=== PATIENT | male | born 1960 | race Caucasian/White ===

== ENCOUNTER 2016-11-13 06:05 | Day surgery (SDC) | payer OTHER ==
[2016-11-13] MEDS ORDERED: Lactated Ringers 1,000 ML IV SCH (06:30)
[2016-11-13] MEDS ORDERED: Ketamine HCl 50 MG/ML IV ONE (08:00)
[2016-11-13] MEDS ORDERED: DIPRIVAN 200 MG/20 ML IV ONE (08:00)
[2016-11-13 09:03] VITALS: PULSE 86; O2SAT 95
[2016-11-13 09:15] VITALS: BP 124/76
--- NOTE | 2016-11-13 09:36 | OP ---
SURGERY DATE/TIME: 11/13/2016 0755 PREOPERATIVE DIAGNOSIS: Abdominal pain. POSTOPERATIVE DIAGNOSIS: Normal colon. PROCEDURE: Colonoscopy. SURGEON: Dr. Canseco. ANESTHESIA: MAC. Medications given by anesthesia department. HISTORY: The patient is a 56 year-old white male complaining of abdominal pain. The patent was felt the need to have endoscopic evaluation. He was appraised of the risks of the procedure including the risk of perforation, phlebitis, untoward reaction to medication, bleeding, and missed lesions. The patient verbalized his understanding and desired to have the procedure performed. DESCRIPTION OF PROCEDURE: The patient was given the medications by the anesthesia department. The patient had continuous pulse oximetry, ECG monitoring, intermittent blood pressure monitoring, and tidal CO2 monitoring during the examination. He was placed in the left lateral decubitus position. A digital rectal examination was performed and revealed normal anal sphincter tone and no masses. The flexible Olympus pediatric colonoscope was used to intubate the rectum. A view of the colon was developed sequentially to the cecum including a short distance into the terminal ileum. Upon insertion and withdrawal, including a retroflex view in the rectum, no mucosal lesions were encountered. The scope was removed from the patient who tolerated the procedure well and was sent back to OP recovery in good condition. The prep was noted to be fair to good.
== END 2016-11-13 09:15 | disposition home or self-care (01) ==
LOC: SDC 06:05
PROVIDERS: ATTEND Family Medicine
PROC: 0DJD8ZZ Inspection of Lower Intestinal Tract, Via Natural or Artificial Opening Endoscopic (ICD-10-PCS; principal; 2016-11-13)
DX: R10.9 Unspecified abdominal pain (principal)
CPT/HCPCS: 00810; J2704

== ENCOUNTER 2017-08-07 12:00 | Inpatient (IN) | payer BC, OTHER ==
[2017-08-07] MEDS ORDERED: Phenergan 25 MG INJ IM ONE (12:21)
[2017-08-07] MEDS ORDERED: Sodium Chloride 0.9% 1000 ML 1,000 ML IV STA (12:21)
[2017-08-07] MEDS ORDERED: Sodium Chloride 0.9% 1000 ML 1,000 ML ONE (12:21)
[2017-08-07] MEDS ORDERED: Lactated Ringers 1,000 ML IV ONE ×4 (12:22→13:24)
[2017-08-07] MEDS ORDERED: Zosyn 3.375GM/100 Ml D5W 3.375 GM/100 ML IVPB IV STA (12:24)
[2017-08-07] MEDS ORDERED: FEVERALL 650 MG PR STA (12:25)
[2017-08-07] MEDS ORDERED: SUBLIMAZE 100 MCG/2 ML IV ONE (12:29)
[2017-08-07] MEDS ORDERED: FEVERALL 650 MG ONE (12:34)
[2017-08-07] MEDS ORDERED: Zosyn 3.375GM/100 Ml D5W 3.375 GM/100 ML IVPB IV ONE (12:34)
[2017-08-07] MEDS ORDERED: Phenergan 25 MG INJ ONE (12:34)
[2017-08-07 12:35] LABS: VBG BASE EXCESS -6.5 (-2.0-2.0); VBG CARBOXYHEMOGLOBIN 2.1 % T HGB (0.0-6.9); VBG HCO3- 19.1 meq/L (22-28); VBG HEMOGLOBIN 17.8; VBG O2 SATURATION 53.7 (95-100); VBG POTASSIUM 5.2 (3.5-5.1); VBG pH 7.31 (7.32-7.42)
--- NOTE | 2017-08-07 12:35 | ERPHSYRPT ---
- History of Present Illness Time Seen by Provider: 08/07/17 12:04 Source: patient, family () Patient Subjective Stated Complaint: pt states "I have not eaten since evening and I have been feeling horrible since, my sugar is really high and I vomited yesterday." Triage Nursing Assessment: Pt alert and oriented X 3, skin pwd. Pt ambulates with a slow shuffling gait. PT is tachypneic, able to speak in full clear sentences. Physician History: CC: vomiting Hx: 57 y/o patient of Dr Shayy Stovall. He has IDDM. He has vomiting, myalgias, feeling poorly, decreaed po intake for a couple of days. No diarrhea and in fact may have constipation. He has back pain, abd pain, myalgias. Some headache. No injury. He felt hot and was sweating. gave insulin today. He is not sure if he took insulin yest. Sugars have been high. Symptoms severe. No chest pain. No prior abdominal surgeries. Timing/Duration: day(s) (2) Severity: severe Allergies/Adverse Reactions: acetaminophen [From Vicodin] Adverse Reaction (Severe, Verified 10/23/15 14:11) Vomiting codeine Adverse Reaction (Severe, Verified 10/23/15 14:10) Vomiting hydrocodone bitartrate [From Vicodin] Adverse Reaction (Severe, Verified 14:11) Vomiting Home Medications: PANTOPRAZOLE 40 mg Tablet [Protonix 40MG Tablet] 40 mg PO DAILY 09/02/15 [ History] Fluticasone Propionate [Flonase NASAL] 16 gm NS DAILY 05/29/16 [History] Gabapentin 400 mg [Neurontin 400 MG] 800 mg PO HS 05/29/16 [History] Insulin Aspart [NovoLOG Insulin] 15 units SQ TIDWM 05/29/16 [History] Insulin Glargine,Hum.rec.anlog [Lantus Solostar] 50 unit SQ DAILY 05/29/16 [ History] Atorvastatin Calcium [Lipitor 20MG Tablet] 1 tab PO QAM 11/12/16 [History] Cyclobenzaprine HCl [Cyclobenzaprine 10 mg Tablet] 10 mg PO UD PRN 11/12/16 [ History] Testosterone Cypionate 0.7 mg IM UD 11/12/16 [History] Hx Tetanus, Diphtheria Vaccination/Date Given: Yes Hx Influenza Vaccination/Date Given: No Hx Pneumococcal Vaccination/Date Given: No Immunizations Up to Date: Yes - Review of Systems Constitutional: Fever, Chills, Fatigue, Malaise, Weakness Eyes: No Symptoms, Photophobia, No Vision Changes Ears, Nose, & Throat: No Symptoms, No Throat Pain Respiratory: No Cough Cardiac: No Chest Pain Abdominal/Gastrointestinal: Abdominal Pain, Nausea, Vomiting, Constipation, No Diarrhea Genitourinary Symptoms: No Dysuria Musculoskeletal: Back Pain Skin: No Rash Neurological: No Headache All Other Systems: Reviewed and Negative - Past Medical History Pertinent Past Medical History: Yes Neurological History: No Pertinent History ENT History: No Pertinent History Cardiac History: No Pertinent History Respiratory History: No Pertinent History Endocrine Medical History: Diabetes Type II Musculoskeletal History: No Pertinent History GI Medical History: No Pertinent History History: No Pertinent History Psycho-Social History: No Pertinent History Male Reproductive Disorders: No Pertinent History Other Medical History: FX L LEG AND FOOT subsiquent infection - Past Surgical History Past Surgical History: Yes Neuro Surgical History: No Pertinent History Cardiac: No Pertinent History Respiratory: No Pertinent History Gastrointestinal: Hernia Repair Genitourinary: No Pertinent History Musculoskeletal: Orthopedic Surgery Male Surgical History: No Pertinent History Other Surgical History: right femur fixed at age 15. left foot broke at age 20. left leg and foot surgery ,,I&D of left foot - Social History Smoking Status: Former smoker Exposure to second hand smoke: No Drug Use: none Patient Lives Alone: No (here with ) - Nursing Vital Signs Nursing Vital Signs: Initial Vital Signs Temperature 97.6 F 08/07/17 12:10 Pulse Rate 120 H 08/07/17 12:10 Respiratory Rate 22 08/07/17 12:10 Blood Pressure 127/89 08/07/17 12:10 O2 Sat by Pulse Oximetry 94 L 08/07/17 12:10 Pain Scale Pain Intensity 2 - Physical Exam General Appearance: alert Eye Exam: PERRL/EOMI, photophobia, No scleral icterus Ears, Nose, Throat Exam: dry mucous membranes Neck Exam: normal inspection, non-tender, supple, No meningismus Respiratory Exam: normal breath sounds, lungs clear Cardiovascular Exam: regular rate/rhythm, tachycardia, No murmur Gastrointestinal/Abdomen Exam: soft, tenderness (diffuse, guarding present, some distention) Male Genitalia Exam: normal genitalia, No hernia, No testicular tenderness Back Exam: normal inspection, other (diffuse discomfort, no erythema or swelling ), No rash Extremity Exam: normal inspection, normal range of motion, No pedal edema Neurologic Exam: alert, oriented x 3, cooperative, slag skimmer II-XII nml as tested, sensation nml, No motor deficits Skin Exam: warm, dry, No rash SpO2 Interpretation: normal SpO2: 94 Oxygen Delivery: Room Air - Course Nursing assessment & vital signs reviewed: Yes EKG Interpreted by Me: RATE (112), Sinus Tach, NORMAL AXIS, NORMAL INTERVALS ( [id number]), NORMAL QRS, Non-specific ST Changes (stable compared to prior tracing) - Radiology Exams cxr X-ray Interpretation: Reviewed by me (low lung volumes, rml infiltrate) - CT Exams abd/pelvis CT Interpretation: Tele-radiologist Report (no acute abdominal findings) Ordered Tests: Active Orders 24 hr Category Date Time Status Track Laying Machine Operator STAT Care 08/07/17 12:21 Active Clean Catch Urine Specimen STAT Care 08/07/17 12:21 Active EKG-ER Only STAT Care 08/07/17 12:21 Active IV Insertion STAT Care 08/07/17 12:21 Active IV Insertion-2nd Peripheral STAT Care 08/07/17 12:21 Active Pulse Oximetry (ED) STAT Care 08/07/17 12:21 Active Rectal Temperature STAT Care 08/07/17 12:25 Active Saline Lock STAT Care 08/07/17 12:21 Active ABDOMEN AND PELVIS W/0 CONTRAS [CT] Stat Exams 08/07/17 12:23 Taken CHEST 1 VIEW (PORTABLE) Stat Exams 08/07/17 12:21 Taken BLOOD CULTURE Stat Lab 08/07/17 12:25 Received CBC W DIFF Stat Lab 08/07/17 12:15 Completed CK-Creatinine Phosphokinase Stat Lab 08/07/17 12:15 Completed CMP Stat Lab 08/07/17 12:15 Completed CULTURE,URINE Stat Lab 08/07/17 13:50 Received Glucose,Critical Care Urgent Lab 08/07/17 12:33 Completed Glucose,Critical Care Urgent Lab 08/07/17 14:35 Completed LIPASE Stat Lab 08/07/17 12:15 Completed Lactic Acid Stat Lab 08/07/17 12:21 Completed Lactic Acid Stat Lab 08/07/17 14:35 Results MAGNESIUM Stat Lab 08/07/17 12:15 Completed Manual Differential NC Stat Lab 08/07/17 12:15 Completed PROTIME WITH INR Stat Lab 08/07/17 12:15 Completed PTT Stat Lab 08/07/17 12:15 Completed TROPONIN Q3H Lab 08/07/17 12:30 Completed TROPONIN Q3H Lab 08/07/17 17:30 Ordered TROPONIN Q3H Lab 08/07/17 20:30 Ordered TROPONIN Q3H Lab 08/07/17 23:30 Ordered TROPONIN Q3H Lab 08/08/17 02:30 Ordered UA Stat Lab 08/07/17 13:50 Completed VENOUS BLOOD GAS Urgent Lab 08/07/17 12:21 Completed VENOUS BLOOD GAS Urgent Lab 08/07/17 14:25 Completed Medication Summary Generic Name Dose Route Start Last Admin Trade Name Frecarol PRN Reason Stop Dose Admin Insulin Human Regular 100 101 mls @ 8.08 mls/hr 08/07/17 13:30 08/07/17 13:40 units/ Sodium Chloride IV 09/06/17 13:29 8 units/hr .[id number] AURA 8.08 mls/hr 8 UNITS/HR Administration Lactated Ringer's 1,000 mls @ 100 mls/hr 08/07/17 14:30 08/07/17 14:29 Lactated Ringers IV 09/06/17 14:29 100 mls/hr .Q10H AURA Administration Discontinued Medications Generic Name Dose Route Start Last Admin Trade Name Vickie PRN Reason Stop Dose Admin Acetaminophen 975 mg 08/07/17 12:25 08/07/17 12:36 Feverall 650 Mg AL 08/07/17 12:26 975 mg STAT STA Administration Acetaminophen Confirm 08/07/17 12:34 Feverall 650 Mg Administered 08/07/17 12:35 Dose 1,300 mg .ROUTE .STK-MED ONE Fentanyl Citrate 50 mcg 08/07/17 12:29 08/07/17 12:40 Sublimaze 100 Mcg/2 Ml IV 08/07/17 12:30 50 mcg STAT ONE Administration Fentanyl Citrate Confirm 08/07/17 12:39 Sublimaze 100 Mcg/2 Ml Administered 08/07/17 12:40 Dose 100 mcg .ROUTE .STK-MED ONE Lactated Ringer's 1,000 mls @ 999 mls/hr 08/07/17 12:22 08/07/17 12:30 Lactated Ringers IV 08/07/17 13:22 999 mls/hr .Q1H1M ONE Administration Sodium Chloride 1,000 mls @ 999 mls/hr 08/07/17 12:21 08/07/17 12:30 Sodium Chloride 0.9% 1000 Ml IV 08/07/17 13:21 999 mls/hr .Q1H1M STA Administration Piperacillin Sod/Tazobactam Sod 3.375 gm in 100 mls @ 200 mls/hr 08/07/17 12: 24 08/07/17 12:37 Zosyn 3.375gm/100 Ml D5w IV 08/07/17 12:53 200 mls/hr STAT STA Administration Sodium Chloride Confirm 08/07/17 12:21 Sodium Chloride 0.9% 1000 Ml Administered 08/07/17 12:22 Dose 1,000 mls @ ud .ROUTE .STK-MED ONE Lactated Ringer's Confirm 08/07/17 12:22 Lactated Ringers Administered 08/07/17 12:23 Dose 1,000 mls @ ud IV .STK-MED ONE Lactated Ringer's 1,000 mls @ 999 mls/hr 08/07/17 12:34 08/07/17 13:24 Lactated Ringers IV 08/07/17 13:34 999 mls/hr .Q1H1M ONE Administration Piperacillin Sod/Tazobactam Sod Confirm 08/07/17 12:34 Zosyn 3.375gm/100 Ml D5w Administered 08/07/17 12:35 Dose 3.375 gm in 100 mls @ ud IV .STK-MED ONE Lactated Ringer's Confirm 08/07/17 13:24 Lactated Ringers Administered 08/07/17 13:25 Dose 1,000 mls @ ud IV .STK-MED ONE Promethazine HCl 25 mg 08/07/17 12:21 08/07/17 12:37 Phenergan 25 Mg Inj IM 08/07/17 12:22 25 mg STAT ONE Administration Promethazine HCl Confirm 08/07/17 12:34 Phenergan 25 Mg Inj Administered 08/07/17 12:35 Dose 25 mg .ROUTE .STK-MED ONE Lab/Rad Data: Laboratory Result Diagrams 08/07/17 12:15 08/07/17 12:15 Laboratory Results 08/07/17 08/07/17 08/07/17 Range/Units 14:35 14:35 14:25 WBC (4.0-10.5) K/mm3 RBC (4.1-5.6) M/mm3 Hgb (12.5-18.0) gm/dl Hct (42-50) % MCV (78-100) fl MCH (26-32) pg MCHC (32-36) g/dl RDW (11.5-14.0) % Plt Count (150-450) K/mm3 MPV (6-9.5) fl Lymphocytes % (24.0-44.0) % Monocytes % (0.0-12.0) % Eosinophils % (0.00-5.0) % Segmented Neutrophils (36.-66.) % Band Neutrophils (0.0-2.0) % Lymphocytes (Manual) (24-44) % Monocytes (Manual) (0.0-12.0) % Differential Comment Platelet Estimate (NORMAL) INR (0.8-3.0) APTT (24.1-36.1) SECONDS VBG pH 7.40 (7.32-7.42) VBG pCO2 at Pat Temp 29 L (42-55) mm/Hg VBG pO2 at Pat Temp 70 H (25-40) mm/Hg VBG HCO3 18.0 L (22-28) meq/L VBG O2 Sat (Adrian) 96.4 (95-100) VBG Base Excess -5.4 L (-2.0-2.0) VBG Hemoglobin 15.0 VBG Carboxyhemoglobin 3.1 (0.0-6.9) % T HGB POC Potassium 4.1 (3.5-5.1) Sodium (136-145) mEq/L Potassium (3.5-5.1) mEq/L Chloride (98-107) mEq/L Carbon Dioxide (21-32) mEq/L Anion Gap (5-15) MEQ/L BUN (9-20) mg/dL Creatinine (0.55-1.30) mg/dl Estimated GFR ML/MIN Glucose 357 H (70-110) MG/DL Lactic Acid 4.0 H (0.4-2.0) Calcium (8.5-10.1) mg/dL Magnesium (1.8-2.4) mg/dL Total Bilirubin (0.2-1.0) mg/dL AST (15-37) U/L ALT (12-78) U/L Alkaline Phosphatase (46-116) U/L Creatine Kinase (39-308) U/L Troponin I (0.000-0.056) ng/ml Serum Total Protein (6.4-8.2) gm/dL Albumin (3.4-5.0) g/dL Lipase (73-393) U/L Ur Collection Type Urine Color (YELLOW) Urine Appearance (CLEAR) Urine pH (5-6) Ur Specific [employer] (1.005-1.025) Urine Protein (Negative) Urine Ketones (NEGATIVE) Urine Blood (0-5) Rodo/ul Urine Nitrite (NEGATIVE) Urine Bilirubin (NEGATIVE) Urine Urobilinogen (0-1) mg/dL Ur Leukocyte Esterase (NEGATIVE) Urine Glucose (NEGATIVE) mg/dL Influenza Type A Ag (NEGATIVE) Influenza Type B Ag (NEGATIVE) RSV (PCR) (Negative) Specimen Received 08/07/17 08/07/17 08/07/17 Range/Units 13:50 12:35 12:33 WBC (4.0-10.5) K/mm3 RBC (4.1-5.6) M/mm3 Hgb (12.5-18.0) gm/dl Hct (42-50) % MCV (78-100) fl MCH (26-32) pg MCHC (32-36) g/dl RDW (11.5-14.0) % Plt Count (150-450) K/mm3 MPV (6-9.5) fl Lymphocytes % (24.0-44.0) % Monocytes % (0.0-12.0) % Eosinophils % (0.00-5.0) % Segmented Neutrophils (36.-66.) % Band Neutrophils (0.0-2.0) % Lymphocytes (Manual) (24-44) % Monocytes (Manual) (0.0-12.0) % Differential Comment Platelet Estimate (NORMAL) INR (0.8-3.0) APTT (24.1-36.1) SECONDS VBG pH (7.32-7.42) VBG pCO2 at Pat Temp (42-55) mm/Hg VBG pO2 at Pat Temp (25-40) mm/Hg VBG HCO3 (22-28) meq/L VBG O2 Sat (Adrian) (95-100) VBG Base Excess (-2.0-2.0) VBG Hemoglobin VBG Carboxyhemoglobin (0.0-6.9) % T HGB POC Potassium (3.5-5.1) Sodium (136-145) mEq/L Potassium (3.5-5.1) mEq/L Chloride (98-107) mEq/L Carbon Dioxide (21-32) mEq/L Anion Gap (5-15) MEQ/L BUN (9-20) mg/dL Creatinine (0.55-1.30) mg/dl Estimated GFR ML/MIN Glucose 576 H* (70-110) MG/DL Lactic Acid (0.4-2.0) Calcium (8.5-10.1) mg/dL Magnesium (1.8-2.4) mg/dL Total Bilirubin (0.2-1.0) mg/dL AST (15-37) U/L ALT (12-78) U/L Alkaline Phosphatase (46-116) U/L Creatine Kinase (39-308) U/L Troponin I (0.000-0.056) ng/ml Serum Total Protein (6.4-8.2) gm/dL Albumin (3.4-5.0) g/dL Lipase (73-393) U/L Ur Collection Type CLEAN CATCH Urine Color YELLOW (YELLOW) Urine Appearance CLEAR (CLEAR) Urine pH 5.0 (5-6) Ur Specific [employer] 1.015 (1.005-1.025) Urine Protein NEGATIVE (Negative) Urine Ketones SMALL (NEGATIVE) Urine Blood NEGATIVE (0-5) Rodo/ul Urine Nitrite NEGATIVE (NEGATIVE) Urine Bilirubin NEGATIVE (NEGATIVE) Urine Urobilinogen NORMAL (0-1) mg/dL Ur Leukocyte Esterase NEGATIVE (NEGATIVE) Urine Glucose 500 (NEGATIVE) mg/dL Influenza Type A Ag NEGATIVE (NEGATIVE) Influenza Type B Ag NEGATIVE (NEGATIVE) RSV (PCR) NEGATIVE (Negative) Specimen Received 08-07 8647 1008/07/17 08/07/17 Range/Units 12:30 12:21 12:21 WBC (4.0-10.5) K/mm3 RBC (4.1-5.6) M/mm3 Hgb (12.5-18.0) gm/dl Hct (42-50) % MCV (78-100) fl MCH (26-32) pg MCHC (32-36) g/dl RDW (11.5-14.0) % Plt Count (150-450) K/mm3 MPV (6-9.5) fl Lymphocytes % (24.0-44.0) % Monocytes % (0.0-12.0) % Eosinophils % (0.00-5.0) % Segmented Neutrophils (36.-66.) % Band Neutrophils (0.0-2.0) % Lymphocytes (Manual) (24-44) % Monocytes (Manual) (0.0-12.0) % Differential Comment Platelet Estimate (NORMAL) INR (0.8-3.0) APTT (24.1-36.1) SECONDS VBG pH 7.31 L (7.32-7.42) VBG pCO2 at Pat Temp 38 L (42-55) mm/Hg VBG pO2 at Pat Temp 24 L (25-40) mm/Hg VBG HCO3 19.1 L (22-28) meq/L VBG O2 Sat (Adrian) 53.7 L (95-100) VBG Base Excess -6.5 L (-2.0-2.0) VBG Hemoglobin 17.8 VBG Carboxyhemoglobin 2.1 (0.0-6.9) % T HGB POC Potassium 5.2 H (3.5-5.1) Sodium (136-145) mEq/L Potassium (3.5-5.1) mEq/L Chloride (98-107) mEq/L Carbon Dioxide (21-32) mEq/L Anion Gap (5-15) MEQ/L BUN (9-20) mg/dL Creatinine (0.55-1.30) mg/dl Estimated GFR ML/MIN Glucose (70-110) MG/DL Lactic Acid 5.3 H (0.4-2.0) Calcium (8.5-10.1) mg/dL Magnesium (1.8-2.4) mg/dL Total Bilirubin (0.2-1.0) mg/dL AST (15-37) U/L ALT (12-78) U/L Alkaline Phosphatase (46-116) U/L Creatine Kinase (39-308) U/L Troponin I < 0.017 (0.000-0.056) ng/ml Serum Total Protein (6.4-8.2) gm/dL Albumin (3.4-5.0) g/dL Lipase (73-393) U/L Ur Collection Type Urine Color (YELLOW) Urine Appearance (CLEAR) Urine pH (5-6) Ur Specific [employer] (1.005-1.025) Urine Protein (Negative) Urine Ketones (NEGATIVE) Urine Blood (0-5) Rodo/ul Urine Nitrite (NEGATIVE) Urine Bilirubin (NEGATIVE) Urine Urobilinogen (0-1) mg/dL Ur Leukocyte Esterase (NEGATIVE) Urine Glucose (NEGATIVE) mg/dL Influenza Type A Ag (NEGATIVE) Influenza Type B Ag (NEGATIVE) RSV (PCR) (Negative) Specimen Received 08/07/17 08/07/17 08/07/17 Range/Units 12:15 12:15 12:15 WBC (4.0-10.5) K/mm3 RBC (4.1-5.6) M/mm3 Hgb (12.5-18.0) gm/dl Hct (42-50) % MCV (78-100) fl MCH (26-32) pg MCHC (32-36) g/dl RDW (11.5-14.0) % Plt Count (150-450) K/mm3 MPV (6-9.5) fl Lymphocytes % (24.0-44.0) % Monocytes % (0.0-12.0) % Eosinophils % (0.00-5.0) % Segmented Neutrophils (36.-66.) % Band Neutrophils (0.0-2.0) % Lymphocytes (Manual) (24-44) % Monocytes (Manual) (0.0-12.0) % Differential Comment Platelet Estimate (NORMAL) INR 0.94 (0.8-3.0) APTT 24.5 (24.1-36.1) SECONDS VBG pH (7.32-7.42) VBG pCO2 at Pat Temp (42-55) mm/Hg VBG pO2 at Pat Temp (25-40) mm/Hg VBG HCO3 (22-28) meq/L VBG O2 Sat (Adrian) (95-100) VBG Base Excess (-2.0-2.0) VBG Hemoglobin VBG Carboxyhemoglobin (0.0-6.9) % T HGB POC Potassium (3.5-5.1) Sodium (136-145) mEq/L Potassium (3.5-5.1) mEq/L Chloride (98-107) mEq/L Carbon Dioxide (21-32) mEq/L Anion Gap (5-15) MEQ/L BUN (9-20) mg/dL Creatinine (0.55-1.30) mg/dl Estimated GFR ML/MIN Glucose (70-110) MG/DL Lactic Acid (0.4-2.0) Calcium (8.5-10.1) mg/dL Magnesium 2.9 H (1.8-2.4) mg/dL Total Bilirubin (0.2-1.0) mg/dL AST (15-37) U/L ALT (12-78) U/L Alkaline Phosphatase (46-116) U/L Creatine Kinase 222 (39-308) U/L Troponin I (0.000-0.056) ng/ml Serum Total Protein (6.4-8.2) gm/dL Albumin (3.4-5.0) g/dL Lipase 62 L (73-393) U/L Ur Collection Type Urine Color (YELLOW) Urine Appearance (CLEAR) Urine pH (5-6) Ur Specific [employer] (1.005-1.025) Urine Protein (Negative) Urine Ketones (NEGATIVE) Urine Blood (0-5) Rodo/ul Urine Nitrite (NEGATIVE) Urine Bilirubin (NEGATIVE) Urine Urobilinogen (0-1) mg/dL Ur Leukocyte Esterase (NEGATIVE) Urine Glucose (NEGATIVE) mg/dL Influenza Type A Ag (NEGATIVE) Influenza Type B Ag (NEGATIVE) RSV (PCR) (Negative) Specimen Received 08/07/17 08/07/17 Range/Units 12:15 12:15 WBC 22.7 H (4.0-10.5) K/mm3 RBC 6.19 H* (4.1-5.6) M/mm3 Hgb 18.2 H (12.5-18.0) gm/dl Hct 53.8 H (42-50) % MCV 86.9 (78-100) fl MCH 29.4 (26-32) pg MCHC 33.8 (32-36) g/dl RDW 15.7 H (11.5-14.0) % Plt Count 400 (150-450) K/mm3 MPV 11.6 H (6-9.5) fl Lymphocytes % 5.9 L (24.0-44.0) % Monocytes % 10.1 (0.0-12.0) % Eosinophils % 0.0 (0.00-5.0) % Segmented Neutrophils 88 H (36.-66.) % Band Neutrophils 2 (0.0-2.0) % Lymphocytes (Manual) 7 L (24-44) % Monocytes (Manual) 3 (0.0-12.0) % Differential Comment NORMAL Platelet Estimate NORMAL (NORMAL) INR (0.8-3.0) APTT (24.1-36.1) SECONDS VBG pH (7.32-7.42) VBG pCO2 at Pat Temp (42-55) mm/Hg VBG pO2 at Pat Temp (25-40) mm/Hg VBG HCO3 (22-28) meq/L VBG O2 Sat (Adrian) (95-100) VBG Base Excess (-2.0-2.0) VBG Hemoglobin VBG Carboxyhemoglobin (0.0-6.9) % T HGB POC Potassium (3.5-5.1) Sodium 136 (136-145) mEq/L Potassium 4.9 (3.5-5.1) mEq/L Chloride 97 L (98-107) mEq/L Carbon Dioxide 19.5 L (21-32) mEq/L Anion Gap 24.2 H (5-15) MEQ/L BUN 45 H (9-20) mg/dL Creatinine 3.26 H (0.55-1.30) mg/dl Estimated GFR 21 ML/MIN Glucose 520 H* (70-110) MG/DL Lactic Acid (0.4-2.0) Calcium 10.7 H (8.5-10.1) mg/dL Magnesium (1.8-2.4) mg/dL Total Bilirubin 1.50 H (0.2-1.0) mg/dL AST 13 L (15-37) U/L ALT 81 H (12-78) U/L Alkaline Phosphatase 134 H (46-116) U/L Creatine Kinase (39-308) U/L Troponin I (0.000-0.056) ng/ml Serum Total Protein 9.0 H (6.4-8.2) gm/dL Albumin 5.2 H (3.4-5.0) g/dL Lipase (73-393) U/L Ur Collection Type Urine Color (YELLOW) Urine Appearance (CLEAR) Urine pH (5-6) Ur Specific [employer] (1.005-1.025) Urine Protein (Negative) Urine Ketones (NEGATIVE) Urine Blood (0-5) Rodo/ul Urine Nitrite (NEGATIVE) Urine Bilirubin (NEGATIVE) Urine Urobilinogen (0-1) mg/dL Ur Leukocyte Esterase (NEGATIVE) Urine Glucose (NEGATIVE) mg/dL Influenza Type A Ag (NEGATIVE) Influenza Type B Ag (NEGATIVE) RSV (PCR) (Negative) Specimen Received - Progress Progress Note: 08/07/17 12:35 He likely has some degree of DKA with IDDM out of control. He has abdominal tenderness and vomiting so will get CT to evaluate for infection or bowel obstruction. LActic 5.3. 30ml/kg crystalloid infusion ordered. Cultures sent. Zosyn started. 08/07/17 14:29 Pt improving. IVF bolus in. Insulin gtt started. Await troponin. EKG has subtle changes stable compared to prior tracing. 08/07/17 15:[address] Shayy Stovall and will admit to ICU for early DKA, severe dehydration, septic shock. Source of infection uncertain but worrisome for abdominal. Sozysn started. Counseled pt/family regarding: lab results, diagnosis, need for follow-up, rad results - Departure Time of Disposition: 15:08 Departure Disposition: In-patient Admission (ICU) Clinical Impression: DKA (diabetic ketoacidoses), Septic shock, Dehydration, Acute kidney injury Condition: Serious Critical Care Time: Yes Critical Care Time(excluding separately billable procedures): 30-74 minutes
[2017-08-07 12:37] LABS: Lactic Acid 5.3 (0.4-2.0)
[2017-08-07] MEDS ORDERED: SUBLIMAZE 100 MCG/2 ML ONE (12:39)
[2017-08-07 12:53] LABS: Lymphocytes % 5.9 % (24.0-44.0); Mean Cell Volume 86.9 fl (78-100); Mean Corpuscular Hemoglobin 29.4 pg (26-32); Mean Platelet Volume 11.6 fl (6-9.5); Monocytes % 10.1 % (0.0-12.0); Platelet Count 400 K/mm3 (150-450); Red Blood Count 6.19 M/mm3 (4.1-5.6); Red Cell Distribution Width 15.7 % (11.5-14.0); White Blood Count 22.7 K/mm3 (4.0-10.5)
[2017-08-07 12:54] LABS: INR 0.94 (0.8-3.0); PROTIME 10.4 SECONDS (8.83-12.87)
[2017-08-07 12:57] LABS: PTT 24.5 SECONDS (24.1-36.1)
[2017-08-07 13:05] LABS: MAGNESIUM 2.9 mg/dL (1.8-2.4)
[2017-08-07 13:06] LABS: ALBUMIN 5.2 g/dL (3.4-5.0); ANION GAP 24.2 MEQ/L (5-15); BILIRUBIN,TOTAL 1.5 mg/dL (0.2-1.0); Carbon Dioxide 19.5 mEq/L (21-32); Potassium 4.9 mEq/L (3.5-5.1)
[2017-08-07] MEDS ORDERED: NOVOLIN R INSULIN (FOR DRIPS)** 100 UNITS in Sodium Chloride 0.9% 100 ML IVPB 100 ML IV SCH (13:30)
[2017-08-07 13:41] LABS: BAND 2 % (0.0-2.0); Platelet Estimate NORMAL (NORMAL); Total Cells Counted 100
[2017-08-07 13:55] LABS: Bilirubin NEGATIVE (NEGATIVE); Blood NEGATIVE Ery/ul (0-5); COMPLETE URINE MICROSCOPIC? NO; Collection Type CLEAN CATCH; Glucose 500 mg/dL (NEGATIVE); Leukocyte Esterase NEGATIVE (NEGATIVE)
[2017-08-07] MEDS ORDERED: Lactated Ringers 1,000 ML IV SCH ×2 (14:30→16:22)
[2017-08-07 14:48] LABS: VBG BASE EXCESS -5.4 (-2.0-2.0); VBG CARBOXYHEMOGLOBIN 3.1 % T HGB (0.0-6.9); VBG O2 SATURATION 96.4 (95-100); VBG POTASSIUM 4.1 (3.5-5.1); VBG pH 7.4 (7.32-7.42)
[2017-08-07] MEDS ORDERED: TYLENOL 325 MG PO PRN (16:22)
[2017-08-07] MEDS ORDERED: TYLENOL 325 MG ONE (16:38)
[2017-08-07 17:29] LABS: Lactic Acid 2.1 (0.4-2.0)
[2017-08-07 17:35] LABS: Mean Cell Volume 86.7 fl (78-100); Mean Corpuscular Hemoglobin 29.5 pg (26-32); Mean Platelet Volume 10.6 fl (6-9.5); Platelet Count 301 K/mm3 (150-450); Red Blood Count 5.28 M/mm3 (4.1-5.6); Red Cell Distribution Width 14.8 % (11.5-14.0); White Blood Count 17.9 K/mm3 (4.0-10.5)
[2017-08-07 17:57] LABS: ALBUMIN 4.1 g/dL (3.4-5.0); ANION GAP 17.3 MEQ/L (5-15); BILIRUBIN,TOTAL 1.2 mg/dL (0.2-1.0); Carbon Dioxide 22.1 mEq/L (21-32); Total Protein 7.2 gm/dL (6.4-8.2)
[2017-08-07 18:07] LABS: ATYPICAL LYMPHS 1 %; BAND 4 % (0.0-2.0); Platelet Estimate NORMAL (NORMAL); Total Cells Counted 100
[2017-08-07] MEDS: D5W/0.45NS W/ 20mEq KCl 1000 ML 1,000 ML IV SCH (18:10)
[2017-08-07] MEDS: Zosyn 3.375GM/100 Ml D5W 3.375 GM/100 ML IVPB IV SCH ×2 (18:12→23:59)
--- NOTE | 2017-08-07 18:43 | PCM.HP ---
History of Present Illness - Chief Complaint Chief Complaint: Sepsis; DKA; Acute Kidney Injury Date: 08/07/17 History of Present Illness: is a 57 year old male. with insulin dependent diabetes who 48 hours ago developed nausea and vomiting. He has not had any diarrhea. He reports nonbloody nonbilious vomiting. No sick contacts no known exposures no travel history. He states he has vomitted nonstop countless times and unable to even take sips in 48 hours without vomiting. He states 1 day prior to this he noticed his eyes were getting more irritated with thick discharge that has persisted for the last 3 days as well. After all the vomiting he started having more pain in the bilateral lower quadrants worse on the right and into the back really only hurting with the vomiting he states. Currently he states the pain is better but hurts still when he moves. he is very thirsty. He states he was taking his insulin but his sugars were still running very high. No bm in 2 days. - Review of Systems Constitutional: Fever, Chills, Fatigue Eyes: Discharge, Eye Redness, Itchy, Tearing, Vision Changes, No Double Vision Ears, Nose, & Throat: No Symptoms, No Ear Pain, No Nose Discharge, No Mouth Pain , No Mouth Swelling, No Throat Pain, No Painful Swallowing Respiratory: No Cough, No Orthopnea, No Short Of Breath, No Wheezing Cardiac: No Chest Pain, No Edema, No Syncope Abdominal/Gastrointestinal: Abdominal Pain, Nausea, Vomiting, Appetite Changes, No Diarrhea, No Hematemesis, No Hematochezia, No Melena, No Dysphagia Genitourinary Symptoms: No Dysuria, No Frequency, No Urgency Musculoskeletal: Arthralgias, Back Pain, No Neck Pain, No Injury, No Joint Redness, No Joint Swelling Skin: No Cellulitis, No Rash Neurological: Dizziness, No Focal Weakness, No Headache, No Paralysis, No Parasthesia, No Seizure, No Sensory Changes Psychological: No Symptoms, No Alcohol Abuse, No Drug Abuse Endocrine: No Symptoms Hematologic/Lymphatic: No Symptoms Immunological/Allergic: No Symptoms Medications & Allergies Home Medications: Home Medication List PANTOPRAZOLE 40 mg Tablet [Protonix 40MG Tablet] 40 mg PO DAILY 09/02/15 [ History Confirmed 08/07/17] Metoclopramide HCl 10 mg [Reglan 10 MG] 10 mg PO ACHS #120 tablet [Rx Confirmed 08/07/17] Gabapentin 400 mg [Neurontin 400 MG] 400 mg PO TID #150 capsule 10/25/15 [ Rx Confirmed 08/07/17] Fluticasone Propionate [Flonase NASAL] 2 spray NS DAILY 05/29/16 [History Confirmed 08/07/17] Gabapentin 400 mg [Neurontin 400 MG] 800 mg PO HS 05/29/16 [History Confirmed 08/07/17] Insulin Aspart [NovoLOG Insulin] 15 units SQ TIDWM 05/29/16 [History Confirmed 08/07/17] Insulin Glargine,Hum.rec.anlog [Lantus Solostar] 50 unit SQ QAM 05/29/16 [ History Confirmed 08/07/17] Atorvastatin Calcium [Lipitor 20MG Tablet] 1 tab PO QAM 11/12/16 [History Confirmed 08/07/17] Cyclobenzaprine HCl [Cyclobenzaprine 10 mg Tablet] 10 mg PO UD PRN 11/12/16 [ History Confirmed 08/07/17] Testosterone Cypionate 0.7 mg IM UD 11/12/16 [History Confirmed 08/07/17] Ibuprofen 200 mg [Motrin 200 mg] 600 mg PO Q6HPRN PRN 08/07/17 [History Confirmed 08/07/17] Allergies/Adverse Reactions: Allergies Allergy/AdvReac Type Severity Reaction Status Date / Time acetaminophen [From Vicodin] AdvReac Severe Vomiting Verified 10/23/15 14:11 codeine AdvReac Severe Vomiting Verified 10/23/15 14:10 hydrocodone bitartrate AdvReac Severe Vomiting Verified 10/23/15 14:11 [From Vicodin] - Past Medical History Past Medical History: Yes Neurological History: No Pertinent History ENT History: No Pertinent History Cardiac History: No Pertinent History Respiratory History: Pneumonia Endocrine Medical History: Diabetes Type II Musculoskelatal History: No Pertinent History GI Medical History: No Pertinent History History: No Pertinent History Pyscho-Social History: No Pertinent History Male Reproductive Disorders: No Pertinent History Comment: FX L LEG AND FOOT subsequent infection - Past Surgical History Past Surgical History: Yes Neuro Surgical History: No Pertinent History Cardiac History: No Pertinent History Respiratory Surgery: No Pertinent History GI Surgical History: Hernia Repair Genitourinary Surgical Hx: No Pertinent History Musculskeletal Surgical Hx: Orthopedic Surgery Male Surgical History: No Pertinent History Other Surgical History: right femur fixed at age 15. left foot broke at age 20. left leg and foot surgery ,,I&D of left foot - Social History Smoking Status: Never smoker Exposure to second hand smoke: No Alcohol: Rarely Drug Use: none - Physical Exam Vital Signs: Vital Signs - 24 hr Temp Pulse Resp BP Pulse Ox 08/07/17 18:00 99.1 F 110 H 15 123/89 94 L 08/07/17 17:09 99.0 F 105 H 16 141/88 94 L 08/07/17 16:41 93 L 08/07/17 15:40 99.4 F 110 H 20 138/72 96 08/07/17 15:09 94 L 08/07/17 14:25 99.7 F 112 H 20 131/79 94 L 08/07/17 13:50 113 H 22 152/69 97 08/07/17 13:40 99.5 F 115 H 24 152/69 96 08/07/17 12:52 98 08/07/17 12:25 99.5 F 08/07/17 12:10 97.6 F 120 H 22 127/89 94 L General Appearance: mild distress, alert Neurologic Exam: alert, oriented x 3, cooperative, normal mood/affect, nml cerebellar function, sensation nml, No motor deficits Eye Exam: PERRL/EOMI, other (conjunctiva injected bilateral with yellow discharge) Ears, Nose, Throat Exam: normal ENT inspection, TMs normal, pharynx normal, moist mucous membranes Neck Exam: normal inspection, non-tender, supple, full range of motion Respiratory Exam: normal breath sounds, lungs clear, No respiratory distress Cardiovascular Exam: regular rate/rhythm, normal heart sounds, normal peripheral pulses Gastrointestinal/Abdomen Exam: soft, normal bowel sounds, tenderness (very tender more in the right flank / lower quadrant area psoas sign and obturator sign absent some voluntary guarding on the right no rebound), No mass, No ecchymosis, No pulsatile mass, No rebound Back Exam: normal inspection, normal range of motion, No CVA tenderness, No vertebral tenderness Extremity Exam: normal inspection, normal range of motion, pelvis stable Skin Exam: normal color, warm, dry, No rash Lymphatic Exam: No adenopathy Results - Labs Lab/Micro Results: Accuchecks Accucheck Value: 102 Accucheck Value: 146 Lab Results-Last 24 Hours 08/07/17 08/07/17 08/07/17 Range/Units 16:41 17:28 17:28 WBC 17.9 H (4.0-10.5) K/mm3 RBC 5.28 (4.1-5.6) M/mm3 Hgb 15.6 (12.5-18.0) gm/dl Hct 45.8 (42-50) % MCV 86.7 (78-100) fl MCH 29.5 (26-32) pg MCHC 34.1 (32-36) g/dl RDW 14.8 H (11.5-14.0) % Plt Count 301 (150-450) K/mm3 MPV 10.6 H (6-9.5) fl Segmented Neutrophils 81 H (36.-66.) % Band Neutrophils 4 H (0.0-2.0) % Lymphocytes (Manual) 7 L (24-44) % Monocytes (Manual) 7 (0.0-12.0) % Differential Comment NORMAL Atypical Lymphocytes 1 % Platelet Estimate NORMAL (NORMAL) Sodium (136-145) mEq/L Potassium (3.5-5.1) mEq/L Chloride (98-107) mEq/L Carbon Dioxide (21-32) mEq/L Anion Gap (5-15) MEQ/L BUN (9-20) mg/dL Creatinine (0.55-1.30) mg/dl Estimated GFR ML/MIN Glucose (70-110) MG/DL Lactic Acid 2.1 H (0.4-2.0) Calcium (8.5-10.1) mg/dL Total Bilirubin (0.2-1.0) mg/dL AST (15-37) U/L ALT (12-78) U/L Alkaline Phosphatase (46-116) U/L Troponin I 0.025 (0.000-0.056) ng/ml Serum Total Protein (6.4-8.2) gm/dL Albumin (3.4-5.0) g/dL 08/07/17 Range/Units 17:28 WBC (4.0-10.5) K/mm3 RBC (4.1-5.6) M/mm3 Hgb (12.5-18.0) gm/dl Hct (42-50) % MCV (78-100) fl MCH (26-32) pg MCHC (32-36) g/dl RDW (11.5-14.0) % Plt Count (150-450) K/mm3 MPV (6-9.5) fl Segmented Neutrophils (36.-66.) % Band Neutrophils (0.0-2.0) % Lymphocytes (Manual) (24-44) % Monocytes (Manual) (0.0-12.0) % Differential Comment Atypical Lymphocytes % Platelet Estimate (NORMAL) Sodium 142 (136-145) mEq/L Potassium 4.0 (3.5-5.1) mEq/L Chloride 107 (98-107) mEq/L Carbon Dioxide 22.1 (21-32) mEq/L Anion Gap 17.3 H (5-15) MEQ/L BUN 37 H (9-20) mg/dL Creatinine 1.97 H (0.55-1.30) mg/dl Estimated GFR 37 ML/MIN Glucose 145 H (70-110) MG/DL Lactic Acid (0.4-2.0) Calcium 9.8 (8.5-10.1) mg/dL Total Bilirubin 1.20 H (0.2-1.0) mg/dL AST 24 (15-37) U/L ALT 63 (12-78) U/L Alkaline Phosphatase 97 (46-116) U/L Troponin I (0.000-0.056) ng/ml Serum Total Protein 7.2 (6.4-8.2) gm/dL Albumin 4.1 (3.4-5.0) g/dL Accuchecks Accucheck Value: 102 Accucheck Value: 146 Assessment/Plan (1) Sepsis Current Visit: Yes Status: Acute Assessment & Plan: suspected viral gastitis given the onset with the bilateral conjunctivitis however with the pain rule out appendicitis the CT was negative but was without contrast continue zosyn for coverage of this serial abdominal exams if not improving or worsening will get surgical consult also with renal function improving consider contrast ct yesterday if renal improved but pain or clinical status not. blood and urine cultures pending (2) Lactic acidosis Current Visit: Yes Status: Acute Assessment & Plan: improved with fluid resucitation Code(s): E87.2 - ACIDOSIS (3) DKA (diabetic ketoacidoses) Current Visit: Yes Status: Acute Qualifiers: Diabetes mellitus type: type 2 Assessment & Plan: improved with fluid hydration and insulin gtt transition off insulin gtt when tolerating po Code(s): E13.10 - OTH DIABETES MELLITUS WITH KETOACIDOSIS WITHOUT COMA (4) Acute kidney injury Current Visit: Yes Status: Acute Assessment & Plan: due to dehydration improving Code(s): N17.9 - ACUTE KIDNEY FAILURE, UNSPECIFIED
[2017-08-07] MEDS ORDERED: PROTONIX 40 MG IV IV SCH (19:00)
[2017-08-07] MEDS: MORPHINE SULFATE 2 MG INJ IV PRN ×2 (19:41→23:59)
[2017-08-07] MEDS: Phenergan 25 MG INJ IV PRN (19:41)
--- NOTE | 2017-08-07 19:49 | XRAY ---
Indication: Abdomen pain, vomiting, and fever. Multiple contiguous axial images obtained through the abdomen and pelvis without contrast as ordered. Comparison: October 23, 2015. Lung bases demonstrates minimal bibasilar atelectasis/scarring. Stable noncalcified left base subpleural micronodule. No consolidation or effusion. Heart is not enlarged. Stomach is moderately fluid distended. Noncontrasted stomach and bowel loops appear nonobstructed. Mild diffuse scattered colonic fecal debris throughout. Normal appendix. No free fluid/air. Remaining liver, gallbladder, pancreas, spleen, adrenal glands, kidneys, ureters, and bladder appear unremarkable for noncontrast exam. Minimal aortoiliac calcifications without AAA. Osseous structures intact with minimal degenerative changes throughout the spine. Impression: 1. Fecal stasis without obstruction. 2. No new or acute intra-abdominal/pelvic abnormalities on this noncontrast exam. 3. Stable left lung base noncalcified micronodule. Comment: Preliminary interpretation was made by [facility]. No discrepancy. CTDI 22.86
--- NOTE | 2017-08-07 19:51 | XRAY ---
Indication: Abdomen pain, vomiting, and fever. Comparison: May 29, 2016. Portable chest today underinflated with now subtle right base infiltrate versus atelectasis. Stable left upper lobe calcified granuloma. Remaining heart, lungs, and bony thorax unremarkable.
[2017-08-07 21:13] LABS: ANION GAP 15.9 MEQ/L (5-15); Carbon Dioxide 22.3 mEq/L (21-32); Potassium 3.4 mEq/L (3.5-5.1)
[2017-08-07] MEDS ORDERED: Erythromycin 1 GM ONE (21:31)
[2017-08-07] MEDS: Neurontin 400 MG PO SCH (21:35)
[2017-08-07] MEDS: TYLENOL EXTRA STRENGTH 500 MG PO PRN (21:35)
[2017-08-07] MEDS: Pepcid 20 MG VIAL IV SCH (21:35)
[2017-08-07] MEDS: Erythromycin 3.5 GM OPHTH. OP SCH (21:39)
[2017-08-08] MEDS: Phenergan 25 MG INJ IV PRN (00:07)
[2017-08-08] MEDS: D5W/0.45NS W/ 20mEq KCl 1000 ML 1,000 ML IV SCH ×2 (02:37→10:26)
[2017-08-08 05:33] LABS: Lactic Acid 1.4 (0.4-2.0); VBG BASE EXCESS -3.4 (-2.0-2.0); VBG CARBOXYHEMOGLOBIN 3.4 % T HGB (0.0-6.9); VBG HCO3- 21.4 meq/L (22-28); VBG HEMOGLOBIN 14.1; VBG O2 SATURATION 93.1 (95-100); VBG pH 7.37 (7.32-7.42)
[2017-08-08 06:01] LABS: BASOPHIL % 0.2 % (0.0-0.4); Eosinophil % 0.4 % (0.00-5.0); Granulocytes % 72.7 % (36.0-66.0); Lymphocytes % 18.2 % (24.0-44.0); Mean Cell Volume 89.4 fl (78-100); Mean Corpuscular Hemoglobin 29.2 pg (26-32); Mean Platelet Volume 11.1 fl (6-9.5); Monocytes % 8.5 % (0.0-12.0); Platelet Count 235 K/mm3 (150-450); Red Blood Count 4.79 M/mm3 (4.1-5.6); Red Cell Distribution Width 15.2 % (11.5-14.0); White Blood Count 12.9 K/mm3 (4.0-10.5)
[2017-08-08] MEDS ORDERED: Zosyn 3.375GM/100 Ml D5W 3.375 GM/100 ML IVPB IV ONE (06:11)
[2017-08-08] MEDS: Zosyn 3.375GM/100 Ml D5W 3.375 GM/100 ML IVPB IV SCH ×3 (06:19→17:38)
[2017-08-08 06:25] LABS: ALBUMIN 3.5 g/dL (3.4-5.0); ANION GAP 14.6 MEQ/L (5-15); BILIRUBIN,TOTAL 1.4 mg/dL (0.2-1.0); Carbon Dioxide 22.5 mEq/L (21-32); Potassium 3.8 mEq/L (3.5-5.1); Total Protein 6.3 gm/dL (6.4-8.2)
[2017-08-08] MEDS: POTASSIUM CHLORIDE 20 mEq IN WATER 100ML 20 MEQ/100 ML BAG IV SCH ×2 (07:57→10:43)
[2017-08-08] MEDS: Neurontin 400 MG PO SCH ×4 (08:39→21:55)
--- NOTE | 2017-08-08 08:50 | PCM.NOTE ---
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 He has aching all over as well. Some blurring of his vision Objective Exam General Appearance: mild distress Neurologic Exam: alert, oriented x 3, cooperative Skin Exam: warm, dry, No rash Eye Exam: other (conjunctival injection and yellow discharge) Ears, Nose, Throat Exam: moist mucous membranes Neck Exam: non-tender, supple Respiratory Exam: normal breath sounds, lungs clear Cardiovascular Exam: regular rate/rhythm, No murmur Gastrointestinal/Abdomen Exam: tenderness, distention, guarding, rebound, No normal bowel sounds (hypoactive) Extremity Exam: No calf tenderness, No pedal edema OBJECTIVE DATA Vital Signs: Vital Signs - 24 hr Temp Pulse Resp BP Pulse Ox 08/08/17 08:17 98.7 F 100 H 15 127/95 94 L 08/08/17 08:00 97 H 15 08/08/17 07:00 96 H 7 L 136/98 94 L 08/08/17 05:00 96 H 122/80 08/08/17 04:00 96 H 16 08/08/17 03:00 98.8 F 103 H 13 129/84 93 L 08/08/17 01:00 98.8 F 101 H 19 138/92 94 L 08/08/17 00:01 107 H 08/08/17 00:00 17 08/07/17 23:00 98.9 F 111 H 18 138/90 08/07/17 19:52 98.8 F 105 H 18 123/89 93 L 08/07/17 18:00 99.1 F 110 H 15 123/89 94 L 08/07/17 17:09 99.0 F 105 H 16 141/88 94 L 08/07/17 16:41 93 L 08/07/17 15:40 99.4 F 110 H 20 138/72 96 08/07/17 15:09 94 L 08/07/17 14:25 99.7 F 112 H 20 131/79 94 L 08/07/17 13:50 113 H 22 152/69 97 08/07/17 13:40 99.5 F 115 H 24 152/69 96 08/07/17 12:52 98 08/07/17 12:25 99.5 F 08/07/17 12:10 97.6 F 120 H 22 127/89 94 L Pain Assessment - Last Documented Pain Intensity 0 Pain Scale [facility] Intake and Output: Intake & Output 08/05/17 08/06/17 08/07/17 08/08/17 11:59 11:59 11:59 11:59 Intake Total 2198 Output Total 625 Balance 1573 Weight 90.9 kg Lab Results: Accuchecks Date 08/08/17 Date 08/08/17 Date 08/08/17 Date 08/08/17 Date 08/08/17 Date 08/08/17 Date 08/08/17 Date 08/08/17 Date 08/07/17 Date 08/07/17 Date 08/07/17 Date 08/07/17 Date 08/07/17 Time 06:00 Time 05:03 Time 04:05 Time 04:00 Time 03:02 Time 01:59 Time 01:03 Time 00:00 Time 23:00 Time 22:00 Time 21:00 Time 20:10 Time 19:00 Accucheck Value: 170 Accucheck Value: 148 Accucheck Value: 131 Accucheck Value: 131 Accucheck Value: 121 Accucheck Value: 128 Accucheck Value: 124 Accucheck Value: 109 Accucheck Value: 102 Accucheck Value: 146 Lab Results-Last 24 Hours 08/07/17 08/07/17 08/07/17 Range/Units 16:41 17:28 17:28 WBC 17.9 H (4.0-10.5) K/mm3 RBC 5.28 (4.1-5.6) M/mm3 Hgb 15.6 (12.5-18.0) gm/dl Hct 45.8 (42-50) % MCV 86.7 (78-100) fl MCH 29.5 (26-32) pg MCHC 34.1 (32-36) g/dl RDW 14.8 H (11.5-14.0) % Plt Count 301 (150-450) K/mm3 MPV 10.6 H (6-9.5) fl Gran % (36.0-66.0) % Lymphocytes % (24.0-44.0) % Monocytes % (0.0-12.0) % Eosinophils % (0.00-5.0) % Basophils % (0.0-0.4) % Segmented Neutrophils 81 H (36.-66.) % Band Neutrophils 4 H (0.0-2.0) % Lymphocytes (Manual) 7 L (24-44) % Monocytes (Manual) 7 (0.0-12.0) % Basophils # (0-0.4) Differential Comment NORMAL Atypical Lymphocytes 1 % Platelet Estimate NORMAL (NORMAL) VBG pH (7.32-7.42) VBG pCO2 at Pat Temp (42-55) mm/Hg VBG pO2 at Pat Temp (25-40) mm/Hg VBG HCO3 (22-28) meq/L VBG O2 Sat (Adrian) (95-100) VBG Base Excess (-2.0-2.0) VBG Hemoglobin VBG Carboxyhemoglobin (0.0-6.9) % T HGB POC Potassium (3.5-5.1) Sodium (136-145) mEq/L Potassium (3.5-5.1) mEq/L Chloride (98-107) mEq/L Carbon Dioxide (21-32) mEq/L Anion Gap (5-15) MEQ/L BUN (9-20) mg/dL Creatinine (0.55-1.30) mg/dl Estimated GFR ML/MIN Glucose (70-110) MG/DL Lactic Acid 2.1 H (0.4-2.0) Calcium (8.5-10.1) mg/dL Total Bilirubin (0.2-1.0) mg/dL AST (15-37) U/L ALT (12-78) U/L Alkaline Phosphatase (46-116) U/L Troponin I 0.025 (0.000-0.056) ng/ml Serum Total Protein (6.4-8.2) gm/dL Albumin (3.4-5.0) g/dL 08/07/17 08/07/17 08/07/17 Range/Units 17:28 20:30 20:50 WBC (4.0-10.5) K/mm3 RBC (4.1-5.6) M/mm3 Hgb (12.5-18.0) gm/dl Hct (42-50) % MCV (78-100) fl MCH (26-32) pg MCHC (32-36) g/dl RDW (11.5-14.0) % Plt Count (150-450) K/mm3 MPV (6-9.5) fl Gran % (36.0-66.0) % Lymphocytes % (24.0-44.0) % Monocytes % (0.0-12.0) % Eosinophils % (0.00-5.0) % Basophils % (0.0-0.4) % Segmented Neutrophils (36.-66.) % Band Neutrophils (0.0-2.0) % Lymphocytes (Manual) (24-44) % Monocytes (Manual) (0.0-12.0) % Basophils # (0-0.4) Differential Comment Atypical Lymphocytes % Platelet Estimate (NORMAL) VBG pH (7.32-7.42) VBG pCO2 at Pat Temp (42-55) mm/Hg VBG pO2 at Pat Temp (25-40) mm/Hg VBG HCO3 (22-28) meq/L VBG O2 Sat (Adrian) (95-100) VBG Base Excess (-2.0-2.0) VBG Hemoglobin VBG Carboxyhemoglobin (0.0-6.9) % T HGB POC Potassium (3.5-5.1) Sodium 142 145 (136-145) mEq/L Potassium 4.0 3.4 L (3.5-5.1) mEq/L Chloride 107 110 H (98-107) mEq/L Carbon Dioxide 22.1 22.3 (21-32) mEq/L Anion Gap 17.3 H 15.9 H (5-15) MEQ/L BUN 37 H 33 H (9-20) mg/dL Creatinine 1.97 H 1.64 H (0.55-1.30) mg/dl Estimated GFR 37 46 ML/MIN Glucose 145 H 100 (70-110) MG/DL Lactic Acid 1.4 (0.4-2.0) Calcium 9.8 8.8 (8.5-10.1) mg/dL Total Bilirubin 1.20 H (0.2-1.0) mg/dL AST 24 (15-37) U/L ALT 63 (12-78) U/L Alkaline Phosphatase 97 (46-116) U/L Troponin I (0.000-0.056) ng/ml Serum Total Protein 7.2 (6.4-8.2) gm/dL Albumin 4.1 (3.4-5.0) g/dL 08/07/17 08/08/17 08/08/17 Range/Units 20:52 02:39 05:20 WBC 12.9 H (4.0-10.5) K/mm3 RBC 4.79 (4.1-5.6) M/mm3 Hgb 14.0 (12.5-18.0) gm/dl Hct 42.8 (42-50) % MCV 89.4 (78-100) fl MCH 29.2 (26-32) pg MCHC 32.7 (32-36) g/dl RDW 15.2 H (11.5-14.0) % Plt Count 235 (150-450) K/mm3 MPV 11.1 H (6-9.5) fl Gran % 72.7 H (36.0-66.0) % Lymphocytes % 18.2 L (24.0-44.0) % Monocytes % 8.5 (0.0-12.0) % Eosinophils % 0.4 (0.00-5.0) % Basophils % 0.2 (0.0-0.4) % Segmented Neutrophils (36.-66.) % Band Neutrophils (0.0-2.0) % Lymphocytes (Manual) (24-44) % Monocytes (Manual) (0.0-12.0) % Basophils # 0.03 (0-0.4) Differential Comment Atypical Lymphocytes % Platelet Estimate (NORMAL) VBG pH (7.32-7.42) VBG pCO2 at Pat Temp (42-55) mm/Hg VBG pO2 at Pat Temp (25-40) mm/Hg VBG HCO3 (22-28) meq/L VBG O2 Sat (Adrian) (95-100) VBG Base Excess (-2.0-2.0) VBG Hemoglobin VBG Carboxyhemoglobin (0.0-6.9) % T HGB POC Potassium (3.5-5.1) Sodium (136-145) mEq/L Potassium (3.5-5.1) mEq/L Chloride (98-107) mEq/L Carbon Dioxide (21-32) mEq/L Anion Gap (5-15) MEQ/L BUN (9-20) mg/dL Creatinine (0.55-1.30) mg/dl Estimated GFR ML/MIN Glucose (70-110) MG/DL Lactic Acid (0.4-2.0) Calcium (8.5-10.1) mg/dL Total Bilirubin (0.2-1.0) mg/dL AST (15-37) U/L ALT (12-78) U/L Alkaline Phosphatase (46-116) U/L Troponin I 0.029 0.032 (0.000-0.056) ng/ml Serum Total Protein (6.4-8.2) gm/dL Albumin (3.4-5.0) g/dL 08/08/17 08/08/17 Range/Units 05:20 05:25 WBC (4.0-10.5) K/mm3 RBC (4.1-5.6) M/mm3 Hgb (12.5-18.0) gm/dl Hct (42-50) % MCV (78-100) fl MCH (26-32) pg MCHC (32-36) g/dl RDW (11.5-14.0) % Plt Count (150-450) K/mm3 MPV (6-9.5) fl Gran % (36.0-66.0) % Lymphocytes % (24.0-44.0) % Monocytes % (0.0-12.0) % Eosinophils % (0.00-5.0) % Basophils % (0.0-0.4) % Segmented Neutrophils (36.-66.) % Band Neutrophils (0.0-2.0) % Lymphocytes (Manual) (24-44) % Monocytes (Manual) (0.0-12.0) % Basophils # (0-0.4) Differential Comment Atypical Lymphocytes % Platelet Estimate (NORMAL) VBG pH 7.37 (7.32-7.42) VBG pCO2 at Pat Temp 37 L (42-55) mm/Hg VBG pO2 at Pat Temp 59 H (25-40) mm/Hg VBG HCO3 21.4 L (22-28) meq/L VBG O2 Sat (Adrian) 93.1 L (95-100) VBG Base Excess -3.4 L (-2.0-2.0) VBG Hemoglobin 14.1 VBG Carboxyhemoglobin 3.4 (0.0-6.9) % T HGB POC Potassium 4.0 (3.5-5.1) Sodium 139 (136-145) mEq/L Potassium 3.8 (3.5-5.1) mEq/L Chloride 106 (98-107) mEq/L Carbon Dioxide 22.5 (21-32) mEq/L Anion Gap 14.6 (5-15) MEQ/L BUN 31 H (9-20) mg/dL Creatinine 1.63 H (0.55-1.30) mg/dl Estimated GFR 46 ML/MIN Glucose 176 H (70-110) MG/DL Lactic Acid 1.4 (0.4-2.0) Calcium 8.9 (8.5-10.1) mg/dL Total Bilirubin 1.40 H (0.2-1.0) mg/dL AST 34 (15-37) U/L ALT 53 (12-78) U/L Alkaline Phosphatase 80 (46-116) U/L Troponin I (0.000-0.056) ng/ml Serum Total Protein 6.3 L (6.4-8.2) gm/dL Albumin 3.5 (3.4-5.0) g/dL Assessment/Plan (1) Sepsis Current Visit: Yes Status: Acute Assessment & Plan: The CT of the abdomen was ok but his pain that started in the RLQ is now more diffuse he has worsening abdominal exam now with guarding and rebound tenderness and persistent nausea. Will get surgical consult for the worsening acute abdomen findings continue zosyn scd for ppx npo acidosis and hyperglycemia is corrected continue hydration renal function improving monitor I/O (2) Lactic acidosis Current Visit: Yes Status: Resolved Code(s): E87.2 - ACIDOSIS (3) DKA (diabetic ketoacidoses) Current Visit: Yes Status: Resolved Qualifiers: Diabetes mellitus type: type 2 Code(s): E13.10 - OTH DIABETES MELLITUS WITH KETOACIDOSIS WITHOUT COMA (4) Acute kidney injury Current Visit: Yes Status: Acute Code(s): N17.9 - ACUTE KIDNEY FAILURE, UNSPECIFIED
[2017-08-08] MEDS ORDERED: Lactated Ringers 500 ML IV ONE (09:00)
[2017-08-08] MEDS: Erythromycin 3.5 GM OPHTH. OP SCH ×2 (10:11→21:56)
[2017-08-08] MEDS: Pepcid 20 MG VIAL IV SCH ×2 (10:11→21:55)
[2017-08-08] MEDS: NovoLOG Insulin SQ PRN ×3 (11:55→22:05)
[2017-08-08] MEDS: TYLENOL EXTRA STRENGTH 500 MG PO PRN (12:28)
[2017-08-08] MEDS: MORPHINE SULFATE 2 MG INJ IV PRN ×2 (13:19→19:39)
--- NOTE | 2017-08-08 19:58 | XRAY ---
Indication: Right abdomen pain and vomiting. Multiple contiguous axial images obtained through the abdomen and pelvis without contrast as ordered. Enteric contrast was given. Comparison: One day earlier. Lung bases demonstrates worsening mild bibasilar dependent atelectasis now obscuring noncalcified left base subpleural micronodule. Heart is not enlarged. Contrasted stomach and bowel loops again appear nonobstructed. There remains mild diffuse scattered colonic fecal debris throughout. The contrasted cecum now demonstrates wall thickening up to 2.1 cm, either focal colitis versus mass. Again normal appendix. No free fluid/air. Remaining liver, gallbladder, pancreas, spleen, adrenal glands, kidneys, ureters, and bladder again appear unremarkable for noncontrast exam. Minimal aortoiliac calcifications without AAA. Osseous structures intact with minimal degenerative changes throughout the spine. Impression: 1. Contrasted cecum now demonstrates wall thickening, focal colitis versus mass. Direct endoscopy may yield further information. 2. There remains mild fecal stasis without obstruction. 3. Remaining CT abdomen/pelvis without contrast exam is negative. Comment: Preliminary interpretation was made by [facility]. No discrepancy. CTDI 22.84
[2017-08-08] MEDS: PROTONIX 40 MG IV IV SCH (21:55)
[2017-08-09] MEDS: Zosyn 3.375GM/100 Ml D5W 3.375 GM/100 ML IVPB IV SCH ×5 (00:04→23:30)
[2017-08-09] MEDS: MORPHINE SULFATE 2 MG INJ IV PRN (01:14)
[2017-08-09 05:35] LABS: BASOPHIL % 0.7 % (0.0-0.4); Eosinophil % 1.8 % (0.00-5.0); Granulocytes % 67.9 % (36.0-66.0); Lymphocytes % 21.3 % (24.0-44.0); Mean Corpuscular Hemoglobin 29.2 pg (26-32); Mean Platelet Volume 10.6 fl (6-9.5); Monocytes % 8.3 % (0.0-12.0); Platelet Count 190 K/mm3 (150-450); Red Cell Distribution Width 14.7 % (11.5-14.0); White Blood Count 8.7 K/mm3 (4.0-10.5)
[2017-08-09 05:57] LABS: ALBUMIN 3.4 g/dL (3.4-5.0); ALKALINE PHOSPHATASE 75 U/L (46-116); BLOOD UREA NITROGEN 17 mg/dL (9-20); CHLORIDE 102 mEq/L (98-107); Carbon Dioxide 21.8 mEq/L (21-32); Glucose 376 MG/DL (70-110); Potassium 5.5 mEq/L (3.5-5.1); SGOT/AST 28 U/L (15-37); SGPT/ALT 47 U/L (12-78); SODIUM 135 mEq/L (136-145); Total Protein 6.2 gm/dL (6.4-8.2)
--- NOTE | 2017-08-09 07:40 | CONS ---
CONSULT DATE: 08/08/2017 HISTORY: This 57 year-old male presents with several days of nausea and vomiting, back and abdominal pain. He has been passing gas but has not had a bowel movement since . His pain is feeling a little better this evening. He was admitted a couple of days ago for diabetic ketoacidosis with a lactic acidosis of leukocytosis. He was initially on an insulin drip and he is off of that now and leukocytosis and lactic acidosis has been improving. His lactic acid is now normal. He had a CT scan performed yesterday without contrast which showed no acute abnormalities. He had a repeat CT scan with p.o. contrast which showed thickening of the cecum with the wall defect measuring 3.3 x 2.2 cm and a normal appearing appendix. He also said that he has been having some belly pain over the last couple of weeks and he did have a colonoscopy back in October 2016 which was performed at [facility] and showed no abnormalities. PAST MEDICAL HISTORY: Diabetes. PAST SURGICAL HISTORY: Multiple extremity surgeries for fractures. Epigastric hernia as an . MEDICATIONS: Insulin. ALLERGIES: CODEINE, HYDROCODONE BITARTRATE. SOCIAL HISTORY: No tobacco. No alcohol. FAMILY HISTORY: None. LAB DATA AND TESTS: CT scan showed wall thickening of the cecum measuring 3.3 x 2.2 cm and a normal appendix. PHYSICAL EXAMINATION: GENERAL: No acute distress. CHEST: Nonlabored. EXTREMITIES: No peripheral edema. ABDOMEN: Soft, nondistended, moderate right lower quadrant tenderness. No diffuse peritoneal signs. ASSESSMENT: A 57 year-old male with: 1) Diabetic ketoacidosis and abdominal pain. 2) The patient has significant right lower quadrant pain however his appendix appears normal on CT scan. There is some wall thickening of his cecum but there does not appear to be much, if any, stranding in the area. CT scan was somewhat limited due to lack of IV contrast due to his increased creatinine. PLAN: Will plan for repeat abdominal exam tomorrow and see if his belly pain is improving, but there does not appear to be a need for emergent surgical intervention at this time.
[2017-08-09] MEDS: NovoLOG Insulin SQ PRN ×4 (07:50→22:27)
[2017-08-09] MEDS: Neurontin 400 MG PO SCH ×4 (07:50→22:27)
--- NOTE | 2017-08-09 08:10 | PCM.NOTE ---
Date and Time: 08/09/17 0810 Subjective Assessment: Had a small bm this am still has the burning all through the abdomen today states it is always worse in the mornign and is worse again this mornign he has had intermittent headache as well he is hungry and no vomiting. Objective Exam General Appearance: no apparent distress Neurologic Exam: alert, oriented x 3, cooperative Skin Exam: warm, dry Eye Exam: No scleral icterus Ears, Nose, Throat Exam: moist mucous membranes Neck Exam: non-tender, supple Cardiovascular Exam: regular rate/rhythm Gastrointestinal/Abdomen Exam: tenderness, guarding, rebound Extremity Exam: normal inspection, No pedal edema OBJECTIVE DATA Vital Signs: Vital Signs - 24 hr Temp Pulse Resp BP Pulse Ox 08/09/17 04:00 98.8 F 82 19 149/92 93 L 08/09/17 00:00 99.1 F 88 14 153/91 93 L 08/08/17 20:00 98.8 F 86 23 141/89 95 08/08/17 16:03 98.9 F 93 H 20 150/94 93 L 08/08/17 16:00 88 18 08/08/17 12:03 98.9 F 97 H 20 145/105 93 L 08/08/17 12:00 100 H 08/08/17 08:17 98.7 F 100 H 15 127/95 94 L Pain Assessment - Last Documented Pain Intensity 6 Pain Scale Used 0-10 Pain Scale,FLACC Intake and Output: Intake & Output 08/06/17 08/07/17 08/08/17 08/09/17 11:59 11:59 11:59 11:59 Intake Total 2198 3662 Output Total 281 2720 Balance 1573 942 Weight 92.7 kg 91.9 kg Lab Results: Accuchecks Date 08/08/17 Time 22:00 Accucheck Value: 203 Accucheck Value: 340 Accucheck Value: 285 Lab Results-Last 24 Hours 08/08/17 08/09/17 08/09/17 Range/Units 16:29 05:20 05:20 WBC 8.7 (4.0-10.5) K/mm3 RBC 4.80 (4.1-5.6) M/mm3 Hgb 14.0 (12.5-18.0) gm/dl Hct 43.2 (42-50) % MCV 90.0 (78-100) fl MCH 29.2 (26-32) pg MCHC 32.4 (32-36) g/dl RDW 14.7 H (11.5-14.0) % Plt Count 190 (150-450) K/mm3 MPV 10.6 H (6-9.5) fl Gran % 67.9 H (36.0-66.0) % Lymphocytes % 21.3 L (24.0-44.0) % Monocytes % 8.3 (0.0-12.0) % Eosinophils % 1.8 (0.00-5.0) % Basophils % 0.7 (0.0-0.4) % Basophils # 0.06 (0-0.4) Sodium 135 L (136-145) mEq/L Potassium 4.7 5.5 H (3.5-5.1) mEq/L Chloride 102 (98-107) mEq/L Carbon Dioxide 21.8 (21-32) mEq/L Anion Gap 17.0 H (5-15) MEQ/L BUN 17 (9-20) mg/dL Creatinine 1.13 (0.55-1.30) mg/dl Estimated GFR > 60 ML/MIN Glucose 376 H (70-110) MG/DL Calcium 8.7 (8.5-10.1) mg/dL Total Bilirubin 2.90 H (0.2-1.0) mg/dL AST 28 (15-37) U/L ALT 47 (12-78) U/L Alkaline Phosphatase 75 (46-116) U/L Serum Total Protein 6.2 L (6.4-8.2) gm/dL Albumin 3.4 (3.4-5.0) g/dL Radiology Exams: Radiology Procedures Category Date Time Status ABDOMEN AND PELVIS W/0 CONTRAS [CT] Urgent Exams 08/08/17 08:52 Completed Assessment/Plan (1) Sepsis Current Visit: Yes Status: Acute Assessment & Plan: with collitis his abdomen is again worse this am with guarding and rebound but normal bowel sounds today and had formed bm this am His abdominal exam improved yesterday throughout the day and worsened this am Bilirubin slightly increasing repeat in am will get ruq u/s as well. continue the zosyn appreciate gen/surg input restart lantus increase to high dose sliding scale clear liquid diet transfer to med surg renal function improved K high increase insulin and recheck it is out of the fluids since last night. (2) Lactic acidosis Current Visit: Yes Status: Resolved Code(s): E87.2 - ACIDOSIS (3) DKA (diabetic ketoacidoses) Current Visit: Yes Status: Resolved Qualifiers: Diabetes mellitus type: type 2 Code(s): E13.10 - OTH DIABETES MELLITUS WITH KETOACIDOSIS WITHOUT COMA (4) Acute kidney injury Current Visit: Yes Status: Acute Code(s): N17.9 - ACUTE KIDNEY FAILURE, UNSPECIFIED
[2017-08-09] MEDS: Lantus Insulin SQ SCH ×2 (08:41→10:24)
[2017-08-09] MEDS: Phenergan 25 MG INJ IV PRN (09:01)
[2017-08-09] MEDS ORDERED: FLUCELVAX QUAD 2017-2018 SYR IM ONE (10:00)
[2017-08-09] MEDS: Erythromycin 3.5 GM OPHTH. OP SCH ×2 (10:40→22:28)
[2017-08-09] MEDS: Pepcid 20 MG VIAL IV SCH ×2 (10:40→22:25)
--- NOTE | 2017-08-09 10:54 | XRAY ---
Indication: Elevated early Reubin. Abdomen pain. Two-dimensional right upper quadrant abdominal sonogram performed. Comparison: October 23, 2015. Gallbladder normally distended without gallstones, wall thickening, or pericholecystic fluid. Common bile duct measures 6.4 mm. No intrahepatic biliary distention. Pancreas again not well seen. Remaining visualized portions of the liver and right kidney appear sonographically unremarkable. Right kidney measures 11.9 cm in length. No ascites. Impression: Pancreas again not well seen. Remaining right upper quadrant sonogram is negative.
--- NOTE | 2017-08-09 14:24 | XRAY ---
Indication: Headache and vomiting. Multiple contiguous axial images obtained through the head without contrast. Comparison: None Normal appearing brain parenchyma, ventricles, and bony calvarium. Mild mucosal thickening of the left maxillary sinus and bilateral maxillary antrectomy. Mastoid air cells clear. Impression: Negative CT head without contrast exam. Incidental left maxillary sinus disease. CT DI 66.81
[2017-08-09] MEDS: PROTONIX 40 MG IV IV SCH (22:24)
[2017-08-09] MEDS: ENOXAPARIN SODIUM SQ SCH (22:25)
[2017-08-10 05:42] LABS: BASOPHIL % 1.2 % (0.0-0.4); Eosinophil % 2.5 % (0.00-5.0); Granulocytes % 57.1 % (36.0-66.0); Lymphocytes % 31.1 % (24.0-44.0); Mean Cell Volume 89.5 fl (78-100); Mean Corpuscular Hemoglobin 29.2 pg (26-32); Mean Platelet Volume 10.7 fl (6-9.5); Monocytes % 8.1 % (0.0-12.0); Platelet Count 196 K/mm3 (150-450); Red Blood Count 4.93 M/mm3 (4.1-5.6); Red Cell Distribution Width 14.6 % (11.5-14.0); White Blood Count 5.9 K/mm3 (4.0-10.5)
[2017-08-10 06:00] LABS: ALBUMIN 3.4 g/dL (3.4-5.0); ALKALINE PHOSPHATASE 75 U/L (46-116); ANION GAP 17.5 MEQ/L (5-15); BLOOD UREA NITROGEN 13 mg/dL (9-20); CHLORIDE 102 mEq/L (98-107); Glucose 268 MG/DL (70-110); Potassium 4.2 mEq/L (3.5-5.1); SGOT/AST 22 U/L (15-37); SGPT/ALT 37 U/L (12-78); SODIUM 136 mEq/L (136-145); Total Protein 6.3 gm/dL (6.4-8.2)
[2017-08-10] MEDS: Zosyn 3.375GM/100 Ml D5W 3.375 GM/100 ML IVPB IV SCH ×3 (06:22→17:11)
[2017-08-10] MEDS: NovoLOG Insulin SQ PRN ×4 (07:35→23:41)
[2017-08-10] MEDS: Neurontin 400 MG PO SCH ×5 (07:38→23:40)
[2017-08-10] MEDS: TYLENOL EXTRA STRENGTH 500 MG PO PRN (08:14)
--- NOTE | 2017-08-10 08:39 | PCM.NOTE ---
Date and Time: 08/10/17 0839 Subjective Assessment: still only able to tolerate a few bites did well yesterday with clears had a few normal bm yesterday still has the burning in his abdomen and having sharp pains in the right lower quadrant. He has intermittent headaches and yesterday he was having trouble getting words right which he states he always does but his daughter thought it was worse. He had NIH stroke assessment by nursing that was normal and negative CT head and was started on asa and lovenox just to be on the safe side but no focal symptoms or recurrence. Objective Exam General Appearance: no apparent distress Neurologic Exam: alert, oriented x 3, cooperative, nml station & gait, sensation nml, No motor deficits, No confusion, No facial droop, No abnormal cerebellar tests, No abnormal unishear operator II-XII Skin Exam: warm, dry Eye Exam: PERRL, No pale conjunctivae Ears, Nose, Throat Exam: moist mucous membranes Neck Exam: normal inspection, non-tender, supple Respiratory Exam: normal breath sounds Cardiovascular Exam: regular rate/rhythm Gastrointestinal/Abdomen Exam: soft, normal bowel sounds, tenderness, guarding, No rebound Extremity Exam: normal inspection, No calf tenderness OBJECTIVE DATA Vital Signs: Vital Signs - 24 hr Temp Pulse Resp BP Pulse Ox 08/10/17 07:36 98.1 F 73 20 142/93 91 L 08/10/17 04:00 97.8 F 82 18 137/88 93 L 08/10/17 00:00 98.3 F 80 18 135/80 93 L 08/09/17 19:42 98.5 F 79 19 138/93 93 L 08/09/17 16:00 98 F 80 18 133/88 92 L 08/09/17 11:30 98.5 F 90 18 136/90 94 L Pain Assessment - Last Documented Pain Intensity 5 Pain Scale Used 0-10 Pain Scale Intake and Output: Intake & Output 08/07/17 08/08/17 08/09/17 08/10/17 11:59 11:59 11:59 11:59 Intake Total 2198 4077 1082 Output Total 416 3245 Balance 5952 467 1895 Weight 92.7 kg 90.5 kg 92.079 kg Lab Results: Accuchecks Date 08/09/17 Time 22:00 Accucheck Value: 156 Accucheck Value: 155 Accucheck Value: 248 Accucheck Value: 248 Lab Results-Last 24 Hours 08/10/17 08/10/17 Range/Units 05:10 05:10 WBC 5.9 (4.0-10.5) K/mm3 RBC 4.93 (4.1-5.6) M/mm3 Hgb 14.4 (12.5-18.0) gm/dl Hct 44.1 (42-50) % MCV 89.5 (78-100) fl MCH 29.2 (26-32) pg MCHC 32.7 (32-36) g/dl RDW 14.6 H (11.5-14.0) % Plt Count 196 (150-450) K/mm3 MPV 10.7 H (6-9.5) fl Gran % 57.1 (36.0-66.0) % Lymphocytes % 31.1 (24.0-44.0) % Monocytes % 8.1 (0.0-12.0) % Eosinophils % 2.5 (0.00-5.0) % Basophils % 1.2 (0.0-0.4) % Basophils # 0.07 (0-0.4) Sodium 136 (136-145) mEq/L Potassium 4.2 (3.5-5.1) mEq/L Chloride 102 (98-107) mEq/L Carbon Dioxide 21.0 (21-32) mEq/L Anion Gap 17.5 H (5-15) MEQ/L BUN 13 (9-20) mg/dL Creatinine 1.02 (0.55-1.30) mg/dl Estimated GFR > 60 ML/MIN Glucose 268 H (70-110) MG/DL Calcium 8.9 (8.5-10.1) mg/dL Total Bilirubin 2.60 H (0.2-1.0) mg/dL AST 22 (15-37) U/L ALT 37 (12-78) U/L Alkaline Phosphatase 75 (46-116) U/L Serum Total Protein 6.3 L (6.4-8.2) gm/dL Albumin 3.4 (3.4-5.0) g/dL Radiology Exams: Radiology Procedures Category Date Time Status ABDOMEN AND PELVIS W/0 CONTRAS [CT] Urgent Exams 08/08/17 08:52 Completed HEAD WITHOUT CONTRAST [CT] Stat Exams 08/09/17 13:22 Completed Ultrasound Liver or Spleen [LIVER OR SPLEEN] [US] Exams 08/09/17 Completed Routine Assessment/Plan (1) Infectious colitis Current Visit: Yes Status: Acute Assessment & Plan: surgery is following improving on the zosyn advance diet today not maintaining adequate po at this time continue iv fluids for now Code(s): A09 - INFECTIOUS GASTROENTERITIS AND COLITIS, UNSPECIFIED (2) Type 2 diabetes mellitus Current Visit: Yes Status: Acute (3) Sepsis Current Visit: Yes Status: Resolved (4) Lactic acidosis Current Visit: Yes Status: Resolved Code(s): E87.2 - ACIDOSIS (5) DKA (diabetic ketoacidoses) Current Visit: Yes Status: Resolved Qualifiers: Diabetes mellitus type: type 2 Code(s): E13.10 - OTH DIABETES MELLITUS WITH KETOACIDOSIS WITHOUT COMA (6) Acute kidney injury Current Visit: Yes Status: Resolved Code(s): N17.9 - ACUTE KIDNEY FAILURE, UNSPECIFIED
[2017-08-10] MEDS: ENOXAPARIN SODIUM SQ SCH (11:53)
[2017-08-10] MEDS: Pepcid 20 MG VIAL IV SCH ×2 (11:53→23:41)
[2017-08-10] MEDS: ECOTRIN 81 MG PO SCH (11:55)
[2017-08-10] MEDS: Lantus Insulin SQ SCH (12:04)
[2017-08-10] MEDS: Erythromycin 3.5 GM OPHTH. OP SCH ×2 (12:05→23:45)
[2017-08-10 20:54] LABS: ANION GAP 21.5 MEQ/L (5-15); BLOOD UREA NITROGEN 16 mg/dL (9-20); CHLORIDE 101 mEq/L (98-107); Glucose 263 MG/DL (70-110); Potassium 4.2 mEq/L (3.5-5.1); SODIUM 134 mEq/L (136-145)
[2017-08-10] MEDS: PROTONIX 40 MG IV IV SCH (23:41)
[2017-08-11] MEDS: Zosyn 3.375GM/100 Ml D5W 3.375 GM/100 ML IVPB IV SCH ×2 (01:56→07:09)
[2017-08-11] MEDS: Phenergan 25 MG INJ IV PRN ×2 (02:03→07:53)
[2017-08-11 05:39] LABS: Mean Cell Volume 88.3 fl (78-100); Mean Corpuscular Hemoglobin 29.1 pg (26-32); Mean Platelet Volume 10.5 fl (6-9.5); Platelet Count 184 K/mm3 (150-450); Red Blood Count 4.94 M/mm3 (4.1-5.6); Red Cell Distribution Width 14.1 % (11.5-14.0); White Blood Count 5.1 K/mm3 (4.0-10.5)
[2017-08-11 06:25] LABS: ALBUMIN 3.5 g/dL (3.4-5.0); ALKALINE PHOSPHATASE 75 U/L (46-116); ANION GAP 18.7 MEQ/L (5-15); BLOOD UREA NITROGEN 13 mg/dL (9-20); CHLORIDE 102 mEq/L (98-107); Carbon Dioxide 20.9 mEq/L (21-32); Direct Bilirubin 0.22 MG/DL (0.0-0.2); Glucose 297 MG/DL (70-110); Potassium 4.4 mEq/L (3.5-5.1); SGOT/AST 23 U/L (15-37); SGPT/ALT 35 U/L (12-78); SODIUM 137 mEq/L (136-145); Total Protein 6.8 gm/dL (6.4-8.2)
[2017-08-11] MEDS: Neurontin 400 MG PO SCH ×3 (07:48→16:33)
[2017-08-11] MEDS: ENOXAPARIN SODIUM SQ SCH (07:48)
[2017-08-11] MEDS: Erythromycin 3.5 GM OPHTH. OP SCH (07:49)
[2017-08-11] MEDS: ECOTRIN 81 MG PO SCH (07:49)
[2017-08-11] MEDS: Lantus Insulin SQ SCH (07:49)
[2017-08-11] MEDS: NovoLOG Insulin SQ PRN ×2 (07:49→11:43)
[2017-08-11] MEDS: Pepcid 20 MG VIAL IV SCH (07:49)
[2017-08-11] MEDS: Flagyl 500 MG PO SCH ×2 (09:13→14:44)
[2017-08-11] MEDS ORDERED: Lantus Insulin SQ SCH (10:00)
[2017-08-11] MEDS ORDERED: Levofloxacin 500 MG Tablet PO SCH (10:00)
[2017-08-11] MEDS: NovoLOG Insulin SQ SCH ×2 (11:43→16:32)
[2017-08-11 16:23] VITALS: BP 142/85; PULSE 93; O2SAT 94
--- NOTE | 2017-08-11 16:55 | PCM.DCORD ---
- Discharge Discharge Date: 08/11/17 Disposition: Home, Self-Care Condition: Stable Prescriptions: New Metronidazole 500 mg [Flagyl 500 MG] 500 mg PO TID #18 tablet Levofloxacin [Levofloxacin 500 MG Tablet] 500 mg PO DAILY #6 tablet Continue PANTOPRAZOLE 40 mg Tablet [Protonix 40MG Tablet] 40 mg PO DAILY Gabapentin 400 mg [Neurontin 400 MG] 400 mg PO TID #150 capsule Gabapentin 400 mg [Neurontin 400 MG] 800 mg PO HS Insulin Aspart [NovoLOG Insulin] 15 units SQ TIDWM Fluticasone Propionate [Flonase NASAL] 2 spray NS DAILY Insulin Glargine,Hum.rec.anlog [Lantus Solostar] 50 unit SQ QAM Atorvastatin Calcium [Lipitor 20MG Tablet] 1 tab PO QAM Cyclobenzaprine HCl [Cyclobenzaprine 10 mg Tablet] 10 mg PO UD PRN PRN Reason: Muscle Spasms Testosterone Cypionate 0.7 mg IM UD Discontinued Metoclopramide HCl 10 mg [Reglan 10 MG] 10 mg PO ACHS #120 tablet Ibuprofen 200 mg [Motrin 200 mg] 600 mg PO Q6HPRN PRN PRN Reason: Pain Follow up with: MARIBELL PIKE [Primary Care Provider] - 08/18/17 10:45 am MARIELA DIXON MD [ASSOCIATE STAFF] - 08/24/17 2:35 pm Forms: Patient Portal Information
--- NOTE | 2017-08-11 17:14 | PCM.DS ---
Discharge Summary Date of Admission: 08/07/17 16:16 Date of Discharge: 08/11/17 Admitting Physician: MARIBELL PIKE Consults: Consults on Case 08/08/17 08:45 Consult Surgery Primary Care Provider: MARIBELL PIKE Allergies Allergies codeine Adverse Reaction (Severe, Verified 10/23/15 14:10) Vomiting hydrocodone bitartrate [From Vicodin] Adverse Reaction (Severe, Verified 14:11) Vomiting Hospital Summary - Hospital Course Hospital Course: He presented with weakness confusion vomiting and inability to tolerate po. He was found to have severe sepsis with dka, acute kidney injury, and acute infectious colitis. He was treated with fluid resuscitation, iv zosyn, insulin gtt and electrolyte replacement. His lactic acidosis resolved and anion gap closed. Sugars were controlled on the gtt and transitioned to subcutaneous insulin. He continued however to have severe abdominal pain and Gen surg was consulted on day [address] was done as he had peritoneal signs on exam and showed the area of colitis couldn't exclude a malignancy. He did slowly continue to improve on the iv zosyn and slowly was able to start eating. He started having BM on 08/10 that turned to loose stools. He had nausea but no further vomiting. He was able to tolerate a full diet on 08/11 and maintain drinking better as well. He continued to have burning pain throughout his abdomen and sharp pains in the right lower quadrant. He was evaluated by Dr. Carolann Friend on 08/11 and felt stable for discharge with outpatient f/u for colonoscopy when improving. will complete coarse with levoquin and flagyl. Will hold the reglan as he is having diarrhea and has been doing well without it since admission. Also stop his nsaid for now as well. His renal function improved back to normal and his sugars were better controlled when his lantus that was given at half dose the 2 days prior to day of discharge was increased to full dose day of discharge. on 08/09 he did have a brief episode where he was having trouble finding words that he states he has chronically but his daughter stated was worse and the nurse came in but it had resolved an NIH stroke scale was unremarkable as was the ct of the head withotu contrast he was started on asa 81 mg and lovenox 40 mg daily at that time but had no further events and he says he gets tripped up on words all the time and worse on his gabapentin and it was no different then he always is. Neuro exam revealed no focal deficits. no events on telemetry. - Vitals & Intake/Output Vital Signs: Vital Signs Temperature 98.3 F 08/11/17 15:00 Pulse Rate 93 H 08/11/17 15:00 Respiratory Rate 18 08/11/17 15:00 Blood Pressure 142/85 08/11/17 15:00 O2 Sat by Pulse Oximetry 94 L 08/11/17 15:00 Intake & Output: Intake & Output 08/09/17 08/10/17 08/11/17 08/12/17 11:59 11:59 11:59 11:59 Intake Total 4077 1082 3685 1235 Output Total 3245 Balance 832 1082 3685 1235 Weight 90.5 kg 92.079 kg 92.079 kg - Lab Result Diagrams: 08/11/17 05:22 08/11/17 05:22 Lab Results-Last 24 Hrs: Accuchecks Date 08/11/17 Date 08/11/17 Date 08/11/17 Date 08/10/17 Time 16:30 Time 11:30 Time 07:30 Time 22:00 Accucheck Value: 84 Accucheck Value: 185 Accucheck Value: 289 Accucheck Value: 224 Lab Results-Last 24 Hours 08/10/17 08/10/17 08/11/17 Range/Units 20:09 22:53 05:22 WBC 5.1 (4.0-10.5) K/mm3 RBC 4.94 (4.1-5.6) M/mm3 Hgb 14.4 (12.5-18.0) gm/dl Hct 43.6 (42-50) % MCV 88.3 (78-100) fl MCH 29.1 (26-32) pg MCHC 33.0 (32-36) g/dl RDW 14.1 H (11.5-14.0) % Plt Count 184 (150-450) K/mm3 MPV 10.5 H (6-9.5) fl Sodium 134 L (136-145) mEq/L Potassium 4.2 (3.5-5.1) mEq/L Chloride 101 (98-107) mEq/L Carbon Dioxide 16.0 L (21-32) mEq/L Anion Gap 21.5 H (5-15) MEQ/L BUN 16 (9-20) mg/dL Creatinine 1.16 (0.55-1.30) mg/dl Estimated GFR > 60 ML/MIN Glucose 263 H (70-110) MG/DL Calcium 9.2 (8.5-10.1) mg/dL Total Bilirubin (0.2-1.0) mg/dL Direct Bilirubin (0.0-0.2) MG/DL AST (15-37) U/L ALT (12-78) U/L Alkaline Phosphatase (46-116) U/L Serum Total Protein (6.4-8.2) gm/dL Albumin (3.4-5.0) g/dL Stl C. diff Tox B Gene NEGATIVE (NEGATIVE) C.difficile [id number]-[id number] PRESUMPTIVE NEGATIVE (NEGATIVE) 08/11/17 Range/Units 05:22 WBC (4.0-10.5) K/mm3 RBC (4.1-5.6) M/mm3 Hgb (12.5-18.0) gm/dl Hct (42-50) % MCV (78-100) fl MCH (26-32) pg MCHC (32-36) g/dl RDW (11.5-14.0) % Plt Count (150-450) K/mm3 MPV (6-9.5) fl Sodium 137 (136-145) mEq/L Potassium 4.4 (3.5-5.1) mEq/L Chloride 102 (98-107) mEq/L Carbon Dioxide 20.9 L (21-32) mEq/L Anion Gap 18.7 H (5-15) MEQ/L BUN 13 (9-20) mg/dL Creatinine 1.15 (0.55-1.30) mg/dl Estimated GFR > 60 ML/MIN Glucose 297 H (70-110) MG/DL Calcium 9.0 (8.5-10.1) mg/dL Total Bilirubin 1.60 H (0.2-1.0) mg/dL Direct Bilirubin 0.22 H (0.0-0.2) MG/DL AST 23 (15-37) U/L ALT 35 (12-78) U/L Alkaline Phosphatase 75 (46-116) U/L Serum Total Protein 6.8 (6.4-8.2) gm/dL Albumin 3.5 (3.4-5.0) g/dL Stl C. diff Tox B Gene (NEGATIVE) C.difficile [id number]-[id number] (NEGATIVE) Micro Results-Entire Visit: Accuchecks Date 08/11/17 Date 08/11/17 Date 08/11/17 Date 08/10/17 Time 16:30 Time 11:30 Time 07:30 Time 22:00 Accucheck Value: 84 Accucheck Value: 185 Accucheck Value: 289 Accucheck Value: 224 Discharge Exam General Appearance: no apparent distress, alert, obese Neurologic Exam: alert, oriented x 3, cooperative, normal mood/affect, nml cerebellar function, sensation nml, No motor deficits Skin Exam: normal color, warm, dry Eye Exam: PERRL, EOMI, eyes nml inspection Ears, Nose, Throat Exam: normal ENT inspection, pharynx normal, moist mucous membranes Neck Exam: normal inspection, non-tender, supple, full range of motion Respiratory Exam: normal breath sounds, lungs clear, No respiratory distress Cardiovascular Exam: regular rate/rhythm, normal heart sounds Gastrointestinal/Abdomen Exam: soft, normal bowel sounds, tenderness (diffuse worse in right lower quadrant), distention, guarding (reduced still in RLQ), No mass, No rebound Extremity Exam: normal inspection, normal range of motion Back Exam: normal inspection, normal range of motion, No CVA tenderness, No vertebral tenderness Male Genitalia Exam: deferred Rectal Exam: deferred Final Diagnosis/Problem List - Final Discharge Diagnosis/Problem (1) Infectious colitis Current Visit: Yes Status: Acute (2) Type 2 diabetes mellitus Current Visit: Yes Status: Acute (3) Sepsis Current Visit: Yes Status: Resolved (4) Lactic acidosis Current Visit: Yes Status: Resolved (5) DKA (diabetic ketoacidoses) Current Visit: Yes Status: Resolved (6) Acute kidney injury Current Visit: Yes Status: Resolved - Discharge Discharge Date: 08/11/17 Disposition: Home, Self-Care Condition: Stable Prescriptions: New Metronidazole 500 mg [Flagyl 500 MG] 500 mg PO TID #18 tablet Levofloxacin [Levofloxacin 500 MG Tablet] 500 mg PO DAILY #6 tablet Continue PANTOPRAZOLE 40 mg Tablet [Protonix 40MG Tablet] 40 mg PO DAILY Gabapentin 400 mg [Neurontin 400 MG] 400 mg PO TID #150 capsule Gabapentin 400 mg [Neurontin 400 MG] 800 mg PO HS Insulin Aspart [NovoLOG Insulin] 15 units SQ TIDWM Fluticasone Propionate [Flonase NASAL] 2 spray NS DAILY Insulin Glargine,Hum.rec.anlog [Lantus Solostar] 50 unit SQ QAM Atorvastatin Calcium [Lipitor 20MG Tablet] 1 tab PO QAM Cyclobenzaprine HCl [Cyclobenzaprine 10 mg Tablet] 10 mg PO UD PRN PRN Reason: Muscle Spasms Testosterone Cypionate 0.7 mg IM UD Discontinued Metoclopramide HCl 10 mg [Reglan 10 MG] 10 mg PO ACHS #120 tablet Ibuprofen 200 mg [Motrin 200 mg] 600 mg PO Q6HPRN PRN PRN Reason: Pain Follow up with: MARIBELL PIKE [Primary Care Provider] - 08/18/17 10:45 am MARIELA FRIEND MD [ASSOCIATE STAFF] - 08/24/17 2:35 pm Forms: Patient Portal Information
== END 2017-08-11 18:05 | disposition home or self-care (01) | DRG 391 ==
LOC: ED 12:00 → ICU 16:16 → MED SURG 08-09 10:00
PROVIDERS: ADMIT Family Medicine; ATTEND Family Medicine
DX: A09 Infectious gastroenteritis and colitis, unspecified (principal); A41.9 Sepsis, unspecified organism; E11.10 Type 2 diabetes mellitus with ketoacidosis without coma; E87.2 Acidosis; N17.9 Acute kidney failure, unspecified; Z79.4 Long term (current) use of insulin
CPT/HCPCS: 36000; 36415; 70450; 71010; 74176; 76705; 80048; 80053; 80076; 81002; 82550; 82805; 82947; 82962; 83605; 83690; 83735; 84132; 84484; 85025; 85027; 85610; 85730; 87040; 87045; 87046; 87086; 87335; 87493; 87631; 93005; 93041; 96360; 96361; 96365; 96367; 96372; 96374; 99291; 99292; G0008; J1650; J1815; J2270; J2543; J2550; J3010; J3480; 90682; A9270-GY

== ENCOUNTER 2017-09-01 00:38 | Emergency (ER) | payer BC, OTHER ==
[2017-09-01] MEDS ORDERED: Phenergan 25 MG INJ IV ONE ×2 (00:40→03:30)
[2017-09-01] MEDS ORDERED: Sodium Chloride 0.9% 1000 ML 1,000 ML IV STA ×2 (00:40→02:17)
[2017-09-01] MEDS ORDERED: Sodium Chloride 0.9% 1000 ML 1,000 ML ONE ×2 (00:55→02:26)
[2017-09-01] MEDS ORDERED: Phenergan 25 MG INJ ONE ×2 (00:55→03:35)
[2017-09-01] MEDS ORDERED: SUBLIMAZE 100 MCG/2 ML IV ONE (01:05)
--- NOTE | 2017-09-01 01:05 | ERPHSYRPT ---
- History of Present Illness Time Seen by Provider: 09/01/17 00:55 Historian: patient Exam Limitations: no limitations Patient Subjective Stated Complaint: pt states he has been vomiting since 1100 today and has pain to both sides of his abd. Triage Nursing Assessment: pt alert and oriented, answers questions approp. pt ambul from wheelchair to stretcher with no assist. skin pink warm and dry. abd tender to light palpation, bowel sounds present in all 4 quads. Physician History: FOR THE PAST 13 HOURS PT HAS HAD VOMITING X~40 AND DIFFUSE ABDOMINAL PAIN; FOR THE PAST 2 DAYS A FRONTAL HEADACHE; FOR THE PAST 3 WEEKS DIARRHEA. PT STATES HE HAS NOT VOIDED FOR 2 DAYS. PT STATES HE WAS IN [facility] FOR 4-5 DAYS ABOUT 3 WEEKS AGO FOR COLITIS. PT HAS A COLONOSCOPY AND MRI OF THE BRAIN SCHEDULED FOR . Allergies/Adverse Reactions: codeine Adverse Reaction (Severe, Verified 09/01/17 00:54) Vomiting hydrocodone bitartrate [From Vicodin] Adverse Reaction (Severe, Verified 00:54) Vomiting Home Medications: PANTOPRAZOLE 40 mg Tablet [Protonix 40MG Tablet] 40 mg PO DAILY 09/02/15 [ History] Fluticasone Propionate [Flonase NASAL] 2 spray NS DAILY 05/29/16 [History] Gabapentin 400 mg [Neurontin 400 MG] 800 mg PO HS 05/29/16 [History] Insulin Aspart [NovoLOG Insulin] 15 units SQ TIDWM 05/29/16 [History] Insulin Glargine,Hum.rec.anlog [Lantus Solostar] 50 unit SQ QAM 05/29/16 [ History] Atorvastatin Calcium [Lipitor 20MG Tablet] 1 tab PO QAM 11/12/16 [History] Cyclobenzaprine HCl [Cyclobenzaprine 10 mg Tablet] 10 mg PO UD PRN 11/12/16 [ History] Testosterone Cypionate 0.7 mg IM UD 11/12/16 [History] Hx Tetanus, Diphtheria Vaccination/Date Given: Yes Hx Influenza Vaccination/Date Given: Yes Hx Pneumococcal Vaccination/Date Given: No Immunizations Up to Date: Yes - Review of Systems Respiratory: No Dyspnea Cardiac: No Chest Pain Abdominal/Gastrointestinal: Abdominal Pain, Vomiting, Diarrhea Neurological: Headache All Other Systems: Reviewed and Negative - Past Medical History Pertinent Past Medical History: Yes Neurological History: No Pertinent History ENT History: No Pertinent History Cardiac History: No Pertinent History Respiratory History: Pneumonia Endocrine Medical History: Diabetes Type II Musculoskeletal History: No Pertinent History GI Medical History: Other History: No Pertinent History Psycho-Social History: No Pertinent History Male Reproductive Disorders: No Pertinent History Other Medical History: FX L LEG AND FOOT subsequent infection. diarrhea x3 weeks, was hospitalized for gi sx - Past Surgical History Past Surgical History: Yes Neuro Surgical History: No Pertinent History Cardiac: No Pertinent History Respiratory: No Pertinent History Gastrointestinal: Hernia Repair Genitourinary: No Pertinent History Musculoskeletal: Orthopedic Surgery Male Surgical History: No Pertinent History Other Surgical History: right femur fixed at age 15. left foot broke at age 20. left leg and foot surgery ,,I&D of left foot - Social History Smoking Status: Never smoker Exposure to second hand smoke: No Drug Use: none Patient Lives Alone: No - Nursing Vital Signs Nursing Vital Signs: Initial Vital Signs Temperature 97.8 F 09/01/17 00:46 Pulse Rate 96 H 09/01/17 00:46 Respiratory Rate 18 09/01/17 00:46 Blood Pressure 147/96 09/01/17 00:46 O2 Sat by Pulse Oximetry 97 09/01/17 00:46 Pain Scale Pain Intensity 8 - Physical Exam General Appearance: alert Eye Exam: PERRL/EOMI Ears, Nose, Throat Exam: TMs normal, dry mucous membranes Neck Exam: normal inspection Respiratory Exam: lungs clear Cardiovascular Exam: normal heart sounds Gastrointestinal/Abdomen Exam: soft, tenderness (MILD DIFFUSE TENDERNESS), other (B.S. MILDLY HYPERACTIVE AND NORMOTONIC.) Back Exam: normal range of motion Extremity Exam: normal inspection, No pedal edema Neurologic Exam: alert, cooperative Skin Exam: warm, dry SpO2 Interpretation: normal SpO2: 97 Oxygen Delivery: Room Air - Course Nursing assessment & vital signs reviewed: Yes - CT Exams Abdomen/Pelvis CT Interpretation: Tele-radiologist Report (NO ACUTE FINDINGS) Ordered Tests: Active Orders 24 hr Category Date Time Status IV Insertion STAT Care 09/01/17 00:40 Active ABDOMEN AND PELVIS W/0 CONTRAS [CT] Stat Exams 09/01/17 01:05 Taken AMYLASE Stat Lab 09/01/17 01:03 Completed CBC W DIFF Stat Lab 09/01/17 01:03 Completed CMP Stat Lab 09/01/17 01:03 Completed LIPASE Stat Lab 09/01/17 01:03 Completed MAG [MAGNESIUM] Stat Lab 09/01/17 01:03 Completed UA W/ MICROSCOPIC Stat Lab 09/01/17 01:30 Completed Medication Summary Discontinued Medications Generic Name Dose Route Start Last Admin Trade Name Vickie PRN Reason Stop Dose Admin Fentanyl Citrate 50 mcg 09/01/17 01:05 09/01/17 01:11 Sublimaze 100 Mcg/2 Ml IV 09/01/17 01:06 50 mcg STAT ONE Administration Fentanyl Citrate Confirm 09/01/17 01:10 Sublimaze 100 Mcg/2 Ml Administered 09/01/17 01:11 Dose 100 mcg .ROUTE .STK-MED ONE Sodium Chloride 1,000 mls @ 999 mls/hr 09/01/17 00:40 09/01/17 01:06 Sodium Chloride 0.9% 1000 Ml IV 09/01/17 01:40 999 mls/hr .Q1H1M STA Administration Sodium Chloride Confirm 09/01/17 00:55 Sodium Chloride 0.9% 1000 Ml Administered 09/01/17 00:56 Dose 1,000 mls @ ud .ROUTE .STK-MED ONE Sodium Chloride 1,000 mls @ 999 mls/hr 09/01/17 02:17 09/01/17 02:27 Sodium Chloride 0.9% 1000 Ml IV 09/01/17 03:17 999 mls/hr .Q1H1M STA Administration Sodium Chloride Confirm 09/01/17 02:26 Sodium Chloride 0.9% 1000 Ml Administered 09/01/17 02:27 Dose 1,000 mls @ ud .ROUTE .STK-MED ONE Promethazine HCl 12.5 mg 09/01/17 00:40 09/01/17 01:06 Phenergan 25 Mg Inj IV 09/01/17 00:41 12.5 mg STAT ONE Administration Promethazine HCl Confirm 09/01/17 00:55 Phenergan 25 Mg Inj Administered 09/01/17 00:56 Dose 25 mg .ROUTE .STK-MED ONE Lab/Rad Data: Laboratory Result Diagrams 09/01/17 01:03 09/01/17 01:03 Laboratory Results 09/01/17 09/01/17 09/01/17 Range/Units 01:30 01:03 01:03 WBC (4.0-10.5) K/mm3 RBC (4.1-5.6) M/mm3 Hgb (12.5-18.0) gm/dl Hct (42-50) % MCV (78-100) fl MCH (26-32) pg MCHC (32-36) g/dl RDW (11.5-14.0) % Plt Count (150-450) K/mm3 MPV (6-9.5) fl Gran % (36.0-66.0) % Lymphocytes % (24.0-44.0) % Monocytes % (0.0-12.0) % Eosinophils % (0.00-5.0) % Basophils % (0.0-0.4) % Basophils # (0-0.4) Sodium 137 (136-145) mEq/L Potassium 3.9 (3.5-5.1) mEq/L Chloride 101 (98-107) mEq/L Carbon Dioxide 23.3 (21-32) mEq/L Anion Gap 16.6 H (5-15) MEQ/L BUN 18 (9-20) mg/dL Creatinine 1.23 (0.55-1.30) mg/dl Estimated GFR > 60 ML/MIN Glucose 298 H (70-110) MG/DL Calcium 9.2 (8.5-10.1) mg/dL Magnesium 1.7 L (1.8-2.4) mg/dL Total Bilirubin 1.40 H (0.2-1.0) mg/dL AST 39 H (15-37) U/L ALT 93 H (12-78) U/L Alkaline Phosphatase 94 (46-116) U/L Serum Total Protein 7.9 (6.4-8.2) gm/dL Albumin 4.1 (3.4-5.0) g/dL Amylase 45 (25-115) U/L Lipase 58 L (73-393) U/L Ur Collection Type CCMS Urine Color YELLOW (YELLOW) Urine Appearance CLEAR (CLEAR) Urine pH 6.0 (5-6) Ur Specific [place] 1.015 (1.005-1.025) Urine Protein TRACE (Negative) Urine Ketones MODERATE (NEGATIVE) Urine Blood NEGATIVE (0-5) Rodo/ul Urine Nitrite NEGATIVE (NEGATIVE) Urine Bilirubin NEGATIVE (NEGATIVE) Urine Urobilinogen NORMAL (0-1) mg/dL Ur Leukocyte Esterase NEGATIVE (NEGATIVE) Urine Microscopic RBC 0-2 (0-2) /HPF Urine Microscopic WBC 0-2 (0-5) /HPF Ur Epithelial Cells RARE (FEW) /HPF Urine Mucus SLIGHT (NEGATIVE) /HPF Urine Culture Reflexed NO (NO) Urine Glucose 500 (NEGATIVE) mg/dL Specimen Received 09-01-17 0255 09/01/17 Range/Units 01:03 WBC 9.3 (4.0-10.5) K/mm3 RBC 5.18 (4.1-5.6) M/mm3 Hgb 15.0 (12.5-18.0) gm/dl Hct 44.7 (42-50) % MCV 86.3 (78-100) fl MCH 29.0 (26-32) pg MCHC 33.6 (32-36) g/dl RDW 14.7 H (11.5-14.0) % Plt Count 245 (150-450) K/mm3 MPV 11.6 H (6-9.5) fl Gran % 73.3 H (36.0-66.0) % Lymphocytes % 17.9 L (24.0-44.0) % Monocytes % 7.0 (0.0-12.0) % Eosinophils % 1.2 (0.00-5.0) % Basophils % 0.6 (0.0-0.4) % Basophils # 0.06 (0-0.4) Sodium (136-145) mEq/L Potassium (3.5-5.1) mEq/L Chloride (98-107) mEq/L Carbon Dioxide (21-32) mEq/L Anion Gap (5-15) MEQ/L BUN (9-20) mg/dL Creatinine (0.55-1.30) mg/dl Estimated GFR ML/MIN Glucose (70-110) MG/DL Calcium (8.5-10.1) mg/dL Magnesium (1.8-2.4) mg/dL Total Bilirubin (0.2-1.0) mg/dL AST (15-37) U/L ALT (12-78) U/L Alkaline Phosphatase (46-116) U/L Serum Total Protein (6.4-8.2) gm/dL Albumin (3.4-5.0) g/dL Amylase (25-115) U/L Lipase (73-393) U/L Ur Collection Type Urine Color (YELLOW) Urine Appearance (CLEAR) Urine pH (5-6) Ur Specific [place] (1.005-1.025) Urine Protein (Negative) Urine Ketones (NEGATIVE) Urine Blood (0-5) Rodo/ul Urine Nitrite (NEGATIVE) Urine Bilirubin (NEGATIVE) Urine Urobilinogen (0-1) mg/dL Ur Leukocyte Esterase (NEGATIVE) Urine Microscopic RBC (0-2) /HPF Urine Microscopic WBC (0-5) /HPF Ur Epithelial Cells (FEW) /HPF Urine Mucus (NEGATIVE) /HPF Urine Culture Reflexed (NO) Urine Glucose (NEGATIVE) mg/dL Specimen Received - Departure Time of Disposition: 03:35 Departure Disposition: Home Clinical Impression: ABDOMINAL PAIN, VOMITING, DIARRHEA, DM Condition: Stable Critical Care Time: No Referrals: MARIBELL PIKE [Primary Care Provider] - Instructions: Vomiting -- Adult, Diarrhea and Traveler's Diarrhea -- Adult, Abdominal Pain-Adult Additional Instructions: FOLLOW UP WITH PRIVATE DOCTOR TOMORROW. Prescriptions: Promethazine HCl 25 mg [Phenergan 25 mg] 25 mg PO Q4H PRN PRN #14 tablet PRN Reason: Nausea/Vomiting
[2017-09-01 01:10] LABS: BASOPHIL % 0.6 % (0.0-0.4); Eosinophil % 1.2 % (0.00-5.0); Granulocytes % 73.3 % (36.0-66.0); Lymphocytes % 17.9 % (24.0-44.0); Mean Cell Volume 86.3 fl (78-100); Mean Platelet Volume 11.6 fl (6-9.5); Platelet Count 245 K/mm3 (150-450); Red Blood Count 5.18 M/mm3 (4.1-5.6); Red Cell Distribution Width 14.7 % (11.5-14.0); White Blood Count 9.3 K/mm3 (4.0-10.5)
[2017-09-01] MEDS ORDERED: SUBLIMAZE 100 MCG/2 ML ONE (01:10)
[2017-09-01 01:32] LABS: ALBUMIN 4.1 g/dL (3.4-5.0); ALKALINE PHOSPHATASE 94 U/L (46-116); ANION GAP 16.6 MEQ/L (5-15); BLOOD UREA NITROGEN 18 mg/dL (9-20); CHLORIDE 101 mEq/L (98-107); Carbon Dioxide 23.3 mEq/L (21-32); Glucose 298 MG/DL (70-110); LIPASE 58 U/L (73-393); Potassium 3.9 mEq/L (3.5-5.1); SGOT/AST 39 U/L (15-37); SGPT/ALT 93 U/L (12-78); SODIUM 137 mEq/L (136-145); Total Protein 7.9 gm/dL (6.4-8.2)
[2017-09-01 02:59] LABS: Bilirubin NEGATIVE (NEGATIVE); Blood NEGATIVE Ery/ul (0-5); COMPLETE URINE MICROSCOPIC? YES; Collection Type CCMS; Glucose 500 mg/dL (NEGATIVE); Leukocyte Esterase NEGATIVE (NEGATIVE); Mucus SLIGHT /HPF (NEGATIVE); WBC 0-2 /HPF (0-5)
[2017-09-01 03:00] LABS: ADD URINE CULTURE? NO (NO); Epithelial Cells RARE /HPF (FEW)
[2017-09-01] MEDS ORDERED: Hydromorphone 1 mg/ml Ampule IV ONE (03:30)
[2017-09-01 03:34] VITALS: BP 135/95; PULSE 100
[2017-09-01 03:35] VITALS: O2SAT 97
[2017-09-01] MEDS ORDERED: Hydromorphone 1 mg/ml Ampule ONE (03:36)
--- NOTE | 2017-09-01 08:50 | XRAY ---
Indication: Abdominal pain and vomiting. Multiple contiguous axial images obtained through the abdomen and pelvis without contrast as ordered. Comparison: August 08, 2017. Lung bases clear. Heart is not enlarged. Noncontrasted stomach and bowel loops again appear nonobstructed. There remains mild diffuse scattered colonic fecal debris throughout. Again normal appendix. No free fluid/air. Remaining liver, gallbladder, pancreas, spleen, adrenal glands, kidneys, ureters, and bladder again appear unremarkable for noncontrast exam. Minimal aortoiliac calcifications without AAA. Osseous structures intact with minimal degenerative changes throughout the spine. Impression: 1. There remains mild fecal stasis without obstruction. 2. Remaining CT abdomen/pelvis without contrast exam is negative. Comment: Preliminary interpretation was made by [facility]. No discrepancy. CTDI 23.02
== END 2017-09-01 04:21 | disposition home or self-care (01) ==
LOC: ED 00:38
DX: R10.9 Unspecified abdominal pain (principal); R11.10 Vomiting, unspecified; R19.7 Diarrhea, unspecified; E11.9 Type 2 diabetes mellitus without complications; R51 Headache; Z79.899 Other long term (current) drug therapy; Z79.4 Long term (current) use of insulin
CPT/HCPCS: 36000; 36415; 74176; 80053; 81000; 82150; 83690; 83735; 85025; 96360; 96361; 96374; 96375; 96376; 99284; J1170; J2550; J3010

== ENCOUNTER 2018-01-20 07:52 | Inpatient (IN) | payer MEDICARE, OTHER ==
[~2018-01-20 07:52] MED LIST: Lactated Ringers 1,000 ML IV ONE; Sensorcaine 0.25% 10 ML ONE
[2018-01-20] MEDS ORDERED: Lactated Ringers 1,000 ML IV ONE (08:35)
[2018-01-20] MEDS: Lactated Ringers 1,000 ML IV SCH ×2 (08:41→13:50)
--- NOTE | 2018-01-20 08:44 | HP ---
DATE OF SURGERY: 01/20/2018 ADMISSION DIAGNOSIS: Gallbladder sludge. ANTICIPATED PROCEDURE: Cholecystectomy. HISTORY OF PRESENT ILLNESS: The patient had a big polyp and gallbladder sludge. He presents for cholecystectomy. PAST MEDICAL HISTORY: ALLERGIES: NONE. MEDICATIONS: Gabapentin, pantoprazole, Atorvastatin, Symbicort. PAST SURGICAL HISTORY: None recent. REVIEW OF SYSTEMS: Diabetes. PHYSICAL EXAMINATION: VITAL SIGNS: Normal. CHEST: Clear. COR: Regular. ABDOMEN: No palpable organomegaly or mass. IMPRESSION: Gallbladder sludge and polyp. PLAN: Cholecystectomy.
[2018-01-20] MEDS ORDERED: MEFOXIN 2 GM PREMIX** 2 GM/50 ML ML IV SCH (09:00)
[2018-01-20] MEDS ORDERED: DILAUDID 2 MG INJECTION ONE (10:42)
[2018-01-20] MEDS ORDERED: SUBLIMAZE 100 MCG/2 ML ONE (10:52)
[2018-01-20] MEDS ORDERED: APRESOLINE 20 MG/ML INJ ONE (11:10)
[2018-01-20] MEDS ORDERED: LOPRESSOR 5 MG/5 ML INJECTION IV ONE (11:46)
[2018-01-20] MEDS ORDERED: Zofran 4 MG/2 ML VIAL ONE (12:14)
[2018-01-20] MEDS ORDERED: SUBLIMAZE 100 MCG/2 ML IV ONE (13:01)
[2018-01-20] MEDS ORDERED: ROBINUL IV ONE (13:01)
[2018-01-20] MEDS ORDERED: Decadron 4 MG INJ IV ONE (13:01)
[2018-01-20] MEDS ORDERED: Zofran 4 MG/2 ML VIAL IV ONE (13:01)
[2018-01-20] MEDS ORDERED: Zemuron 100 MG/10 ML IV ONE (13:01)
[2018-01-20] MEDS ORDERED: DIPRIVAN 200 MG/20 ML IV ONE (13:01)
[2018-01-20] MEDS ORDERED: BRIDION 200MG/2ML IV ONE (13:01)
[2018-01-20] MEDS ORDERED: TORAdol 30 mg Injection IV ONE (13:01)
[2018-01-20] MEDS ORDERED: BREVIBLOC 100 MG/10 ML IV ONE (13:01)
[2018-01-20] MEDS ORDERED: Quelicin Fliptop 200 MG/10 ML IV ONE (13:01)
[2018-01-20] MEDS ORDERED: TRANDATE 20 MG/5 ML SYRINGE IV ONE ×2 (13:19→13:42)
[2018-01-20] MEDS ORDERED: Zofran 4 MG/2 ML VIAL IV PRN ×2 (13:19→18:03)
[2018-01-20] MEDS ORDERED: NovoLOG Insulin SQ ONE (13:22)
[2018-01-20] MEDS: Lantus Insulin SQ SCH (13:51)
[2018-01-20] MEDS ORDERED: PHENERGAN 25 MG PO SCH (15:00)
[2018-01-20] MEDS ORDERED: Neurontin 400 MG PO SCH (15:00)
[2018-01-20] MEDS: NovoLOG Insulin SQ SCH (16:24)
[2018-01-20] MEDS: NEURONTIN 300 MG PO SCH (16:24)
[2018-01-20] MEDS: MORPHINE SULFATE 4 MG INJ IV PRN ×3 (16:24→23:14)
[2018-01-20] MEDS: NovoLOG Insulin SQ PRN (16:25)
--- NOTE | 2018-01-20 18:13 | PCM.HP ---
History of Present Illness - Chief Complaint Chief Complaint: HTN, hyperglycemia Date: 01/20/18 History of Present Illness: is a 57 year old male. who has been having several years of worsening abdominal pain and extensive evaluation with GI and was sent today for laparoscopic cholecystectomy. He notes his has been sick starting yesterday and was diagnosed with influenza B today and now he is having coughing. He has been having elevated blood sugars for the last several months and was very high post operatively. His blood pressure which he denies any previous problems with was acutely elevated as well. He states he is having some head pressure and drowsiness. He notes the tics have increased over the last several days. - Review of Systems Constitutional: No Fever, No Chills Eyes: No Symptoms Ears, Nose, & Throat: No Symptoms Respiratory: Cough, Short Of Breath Cardiac: No Chest Pain, No Edema, No Syncope Abdominal/Gastrointestinal: Abdominal Pain, Nausea, No Vomiting, No Diarrhea Genitourinary Symptoms: No Dysuria Musculoskeletal: No Back Pain, No Neck Pain Skin: No Rash Neurological: No Dizziness, No Focal Weakness, No Sensory Changes Psychological: No Symptoms Endocrine: No Symptoms Hematologic/Lymphatic: No Symptoms Immunological/Allergic: No Symptoms Medications & Allergies Home Medications: Home Medication List PANTOPRAZOLE 40 mg Tablet [Protonix 40MG Tablet] 40 mg PO DAILY 09/02/15 [ History Confirmed 01/20/18] Gabapentin 400 mg [Neurontin 400 MG] 1,200 mg PO HS 05/29/16 [History Confirmed 01/20/18] Insulin Aspart [NovoLOG Insulin] 15 units SQ TIDWM 05/29/16 [History Confirmed 01/20/18] Atorvastatin Calcium [Lipitor 20MG Tablet] 1 tab PO QAM 11/12/16 [History Confirmed 01/20/18] Testosterone Cypionate 0.7 mg IM UD 11/12/16 [History Confirmed 01/20/18] Famotidine 40 mg PO DAILY 01/12/18 [History Confirmed 01/20/18] Gabapentin 400 mg [Neurontin 400 MG] 600 mg PO TID 01/12/18 [History Confirmed 01/20/18] Insulin Glargine [Lantus Insulin] 50 units IJ DAILY 01/12/18 [History Confirmed 01/20/18] Loratadine 10 mg [Claritin 10 mg] 10 mg PO HS 01/12/18 [History Confirmed 01/20/18] Promethazine HCl 25 mg [Phenergan 25 mg] 25 mg PO TID 01/12/18 [History Confirmed 01/20/18] Allergies/Adverse Reactions: Allergies Allergy/AdvReac Type Severity Reaction Status Date / Time codeine AdvReac Severe Vomiting Verified 01/20/18 08:23 hydrocodone bitartrate AdvReac Severe Vomiting Verified 01/20/18 08:23 [From Vicodin] - Past Medical History Past Medical History: Yes Neurological History: No Pertinent History ENT History: No Pertinent History Cardiac History: High Cholesterol Respiratory History: Pneumonia Endocrine Medical History: Diabetes Type II Musculoskelatal History: No Pertinent History GI Medical History: Other History: No Pertinent History Pyscho-Social History: No Pertinent History Male Reproductive Disorders: No Pertinent History Comment: FX L LEG AND FOOT subsequent infection. diarrhea x3 weeks, was hospitalized for gi sx - Past Surgical History Past Surgical History: Yes Neuro Surgical History: No Pertinent History Cardiac History: No Pertinent History Respiratory Surgery: No Pertinent History GI Surgical History: Hernia Repair Genitourinary Surgical Hx: No Pertinent History Musculskeletal Surgical Hx: Orthopedic Surgery Male Surgical History: No Pertinent History Other Surgical History: right femur fixed at age 15. left foot broke at age 20. left leg and foot surgery ,,I&D of left foot - Social History Smoking Status: Never smoker Exposure to second hand smoke: No Alcohol: Rarely Drug Use: none - Physical Exam Vital Signs: Vital Signs - 24 hr Temp Pulse Resp BP Pulse Ox 01/20/18 14:00 97.7 F 106 H 22 186/99 92 L 01/20/18 13:11 98.2 F 101 H 18 161/84 94 L 01/20/18 08:45 97.8 F 63 18 142/87 100 01/20/18 08:29 97.8 F 63 18 142/87 100 Oxygen-Last 24 hours O2 Percentage 2 Liters = 28% Oxygen Flowrate (L/min)-RT 2 General Appearance: no apparent distress, alert, obese Neurologic Exam: alert, oriented x 3, cooperative, normal mood/affect, other ( multiple tics of face, neck, abnormal mouth movements, cough tic), No motor deficits Eye Exam: PERRL/EOMI, eyes nml inspection Ears, Nose, Throat Exam: normal ENT inspection, pharynx normal, moist mucous membranes Neck Exam: normal inspection, non-tender, supple, full range of motion Respiratory Exam: normal breath sounds, lungs clear, No respiratory distress Cardiovascular Exam: regular rate/rhythm, normal heart sounds, normal peripheral pulses Gastrointestinal/Abdomen Exam: soft, normal bowel sounds, tenderness (minimal), other (post op bandages clean dry intact), No distention, No mass Back Exam: normal inspection, normal range of motion, No CVA tenderness, No vertebral tenderness Extremity Exam: normal inspection, normal range of motion, pelvis stable Skin Exam: normal color, warm, dry, No rash Lymphatic Exam: No adenopathy Results - Labs Lab/Micro Results: Accuchecks Date 01/20/18 Time 09:01 Accucheck Value: 308 Accucheck Value: 352 Lab Results-Last 24 Hours 01/20/18 Range/Units 14:01 Hemoglobin A1c 9.69 H (4.5-6.0) % Accuchecks Date 01/20/18 Time 09:01 Accucheck Value: 308 Accucheck Value: 352 Assessment/Plan (1) Uncontrolled hypertension Current Visit: Yes Status: Acute Assessment & Plan: improved after iv labetalol start lisinopril and hctz now monitor closely prn labetalol for sbp >180 dbp >110 Code(s): I10 - ESSENTIAL (PRIMARY) HYPERTENSION (2) Uncontrolled type 2 diabetes mellitus Current Visit: Yes Status: Acute Assessment & Plan: states at home his blood sugar is running 200 to 300's "since he has been sick" which he reports as a few months. high dose sliding scale, lantus 50 units daily and 15 units novolog ac titrate up as tolerated likely acutely worse in the immediate post op period ada diet Code(s): E11.65 - TYPE 2 DIABETES MELLITUS WITH HYPERGLYCEMIA (3) Chronic cholecystitis Current Visit: Yes Status: Acute Assessment & Plan: post op day 0 Code(s): K81.1 - CHRONIC CHOLECYSTITIS (4) Extrapyramidal and movement disorder Current Visit: Yes Status: Acute Assessment & Plan: stop phenergan try low dose clonazepam significantly worsened with tics of face, shoulders, cough, mouth movements Code(s): G25.9 - EXTRAPYRAMIDAL AND MOVEMENT DISORDER, UNSPECIFIED (5) Cough Current Visit: Yes Status: Acute Assessment & Plan: just became acutely ill yesterday and diagnosed with influenza B today will check him for influenza Code(s): R05 - COUGH (6) COPD (chronic obstructive pulmonary disease) Current Visit: Yes Status: Acute Assessment & Plan: is on maintenance inhaler but not sure which one and he believes he is scheduled for a bronchoscopy with his metal tube cutter soon. Anticipate short hospital stay will use duoneb prn for now and home inhaler if he it is brought in as he is unsure what he is on
[2018-01-20] MEDS ORDERED: DUONEB 0.5-3 MG/3 ml Neb IH PRN (18:26)
[2018-01-20 19:28] LABS: INFLUENZA A NEGATIVE (NEGATIVE); RESPIRATORY SYNCTIAL VIRUS NEGATIVE (Negative)
[2018-01-20 19:30] LABS: INFLUENZA B POSITIVE (NEGATIVE)
[2018-01-20] MEDS ORDERED: CLARITIN 10 MG ONE (20:01)
[2018-01-20] MEDS ORDERED: ZOCOR 20MG ONE (20:02)
[2018-01-20] MEDS ORDERED: ENOXAPARIN SODIUM SQ SCH (22:00)
[2018-01-20] MEDS: Tamiflu 75MG Capsule PO SCH (22:31)
[2018-01-20] MEDS: ZOCOR 20MG PO SCH (22:31)
[2018-01-20] MEDS: Neurontin 400 MG PO SCH (22:31)
[2018-01-20] MEDS: CLARITIN 10 MG PO SCH (22:31)
[2018-01-20] MEDS: Klonopin 0.5 MG PO SCH (22:31)
[2018-01-21] MEDS: MORPHINE SULFATE 4 MG INJ IV PRN ×5 (04:58→21:51)
[2018-01-21 05:54] LABS: Hematocrit 40.3 % (42-50); Hemoglobin 13.3 gm/dl (12.5-18.0); Mean Cell Volume 91.4 fl (78-100); Mean Corpuscular Hemoglobin 30.2 pg (26-32); Mean Platelet Volume 11.9 fl (6-9.5); Platelet Count 191 K/mm3 (150-450); Red Blood Count 4.41 M/mm3 (4.1-5.6); Red Cell Distribution Width 14.1 % (11.5-14.0); White Blood Count 9.4 K/mm3 (4.0-10.5)
[2018-01-21 06:06] LABS: ALBUMIN 3.9 g/dL (3.5-5.0); ALKALINE PHOSPHATASE 83 U/L (38-126); ANION GAP 15.6 MEQ/L (5-15); BLOOD UREA NITROGEN 15 mg/dL (9-20); CHLORIDE 101 mmol/L (98-107); Calcium 9.4 mg/dL (8.4-10.2); Carbon Dioxide 25 mmol/L (22-30); Creatinine 1 0.85 mg/dL (0.66-1.25); Glucose 289 mg/dL (74-106); Potassium 4.4 mmol/L (3.5-5.1); SGOT/AST 50 U/L (17-59); SGPT/ALT 63 U/L (0-50); SODIUM 137 mmol/L (137-145)
[2018-01-21] MEDS ORDERED: TRANDATE 100MG/20 ML MDV IV PRN (07:30)
[2018-01-21] MEDS: Pepcid 20 MG PO SCH (08:26)
[2018-01-21] MEDS: Protonix 40MG Tablet PO SCH (08:26)
[2018-01-21] MEDS: Tamiflu 75MG Capsule PO SCH ×2 (08:26→21:33)
[2018-01-21] MEDS: NEURONTIN 300 MG PO SCH ×3 (08:26→17:19)
[2018-01-21] MEDS: NovoLOG Insulin SQ PRN ×3 (08:27→21:34)
[2018-01-21] MEDS: NovoLOG Insulin SQ SCH ×3 (08:27→17:47)
[2018-01-21] MEDS: Lantus Insulin SQ SCH (08:27)
--- NOTE | 2018-01-21 09:14 | OP ---
SURGERY DATE/TIME: 01/20/2018 0945 PREOPERATIVE DIAGNOSIS: Sludge, gallbladder wall thickening. POSTOPERATIVE DIAGNOSIS: Sludge, gallbladder wall thickening. PROCEDURE: Laparoscopic cholecystectomy. SURGEON: Dr. Friend. ANESTHESIA: General endotracheal tube per Yazan Ellis CRNA. COMPLICATIONS: None. CONDITION: Stable. INDICATIONS: A patient requiring cholecystectomy. DESCRIPTION OF PROCEDURE AND FINDINGS: Taken to surgery. General anesthetic, routine prep and drape. Time out performed. Veress needle inserted. Opening pressure of 1, insufflating pressure 14. Four - 5's. Good visualization. There was thickening. There were some adhesions to the omentum taken down. Cystic duct defined. Cystic artery defined. Both structures triply clipped and transected. Clips noted to be across and well approximated. Gallbladder rolled out of gallbladder fossa. The gallbladder delivered through upper abdominal port with no widening. Field is clean and dry. Hole closure device used at the umbilicus. Skin closed with 4-0 Vicryl and Steri-Strips. The patient tolerated the procedure satisfactorily. Findings discussed with the family in the waiting room.
[2018-01-21] MEDS ORDERED: NON-FORMULARY ITEM (Atorvastatin Calcium 1 TAB) PO SCH (10:00)
[2018-01-21] MEDS ORDERED: NON-FORMULARY ITEM (Famotidine [Famotidine] 40 MG) PO SCH (10:00)
[2018-01-21] MEDS: Zestril 10 MG PO SCH (17:19)
[2018-01-21] MEDS: hydroDIURIL 25 MG PO SCH (17:19)
--- NOTE | 2018-01-21 17:58 | PCM.NOTE ---
Date and Time: 01/21/181752 Subjective Assessment: feeling worse today chills and coughing worsening the pain very weak with muscle aches all over tested + for flu B last night after arrival to the floor from outpatient surgery. He contracted this from his who has had for several days Objective Exam General Appearance: no apparent distress, alert, obese Neurologic Exam: alert, oriented x 3, cooperative, normal mood/affect, nml cerebellar function, sensation nml, No motor deficits Skin Exam: normal color, warm, dry Eye Exam: PERRL, EOMI, eyes nml inspection Ears, Nose, Throat Exam: normal ENT inspection, pharynx normal, moist mucous membranes Neck Exam: normal inspection, non-tender, supple, full range of motion Respiratory Exam: normal breath sounds, lungs clear, No respiratory distress Cardiovascular Exam: regular rate/rhythm, normal heart sounds Gastrointestinal/Abdomen Exam: normal bowel sounds, tenderness, distention ( mild dressings clean dry intact), No mass, No guarding, No rebound Extremity Exam: normal inspection, normal range of motion Back Exam: normal inspection, normal range of motion, No CVA tenderness, No vertebral tenderness Male Genitalia Exam: deferred Rectal Exam: deferred OBJECTIVE DATA Vital Signs: Vital Signs - 24 hr Temp Pulse Resp BP Pulse Ox 01/21/18 16:00 98.7 F 95 H 20 116/55 98 01/21/18 11:39 98.4 F 96 H 18 130/72 96 01/21/18 08:38 98.3 F 99 H 20 134/76 96 01/21/18 05:35 96 H 20 95 01/21/18 04:42 98.9 F 100 H 20 158/84 96 01/21/18 00:26 99.1 F 110 H 18 135/74 94 L 01/20/18 21:00 99.2 F 119 H 20 135/78 94 L Oxygen-Last 24 hours O2 Percentage 2 Liters = 28% O2 Percentage 2 Liters = 28% O2 Percentage 2 Liters = 28% O2 Percentage 2 Liters = 28% O2 Percentage 2 Liters = 28% O2 Percentage 2 Liters = 28% Pain Assessment - Last Documented Pain Intensity 5 Pain Scale Used 0-10 Pain Scale Intake and Output: Intake & Output 01/19/18 01/20/18 01/21/18 01/22/18 11:59 11:59 11:59 11:59 Intake Total 2082 1320 Output Total 9 131 Balance 28 420 Weight 94.3 kg 99 kg Lab Results: Accuchecks Date 01/20/18 Time 22:00 Accucheck Value: 86 Accucheck Value: 253 Accucheck Value: 326 Accucheck Value: 145 Lab Results-Last 24 Hours 01/20/18 01/21/18 01/21/18 Range/Units 18:20 05:05 05:05 WBC 9.4 (4.0-10.5) K/mm3 RBC 4.41 (4.1-5.6) M/mm3 Hgb 13.3 (12.5-18.0) gm/dl Hct 40.3 L (42-50) % MCV 91.4 (78-100) fl MCH 30.2 (26-32) pg MCHC 33.0 (32-36) g/dl RDW 14.1 H (11.5-14.0) % Plt Count 191 (150-450) K/mm3 MPV 11.9 H (6-9.5) fl Sodium 137 (137-145) mmol/L Potassium 4.4 (3.5-5.1) mmol/L Chloride 101 (98-107) mmol/L Carbon Dioxide 25 (22-30) mmol/L Anion Gap 15.6 H (5-15) MEQ/L BUN 15 (9-20) mg/dL Creatinine 0.85 (0.66-1.25) mg/dL Estimated GFR > 60.0 ML/MIN Glucose 289 H (74-106) mg/dL Calcium 9.4 (8.4-10.2) mg/dL Total Bilirubin 1.60 H (0.2-1.3) mg/dL AST 50 (17-59) U/L ALT 63 H (0-50) U/L Alkaline Phosphatase 83 (38-126) U/L Serum Total Protein 6.0 L (6.3-8.2) g/dL Albumin 3.9 (3.5-5.0) g/dL Influenza Type A Ag NEGATIVE (NEGATIVE) Influenza Type B Ag POSITIVE (NEGATIVE) RSV (PCR) NEGATIVE (Negative) Assessment/Plan (1) Influenza B Current Visit: Yes Status: Acute Assessment & Plan: he developed at same time as surgery now feeling more like he is chilling increased cough making the pain from cholecystectomy worse that was done yesterday Still on oxygen currently. continue tamiflu he feels to weak to be discharged and with the oxygen and recent surgery requires further supportive care. He lives with his who contracted the flu first earlier this week and is debilitated with it right now as well. Code(s): J10.1 - FLU DUE TO OTH IDENT INFLUENZA VIRUS W OTH RESP MANIFEST (2) Uncontrolled hypertension Current Visit: Yes Status: Acute Assessment & Plan: improving on lisinopril/hctz Code(s): I10 - ESSENTIAL (PRIMARY) HYPERTENSION (3) Uncontrolled type 2 diabetes mellitus Current Visit: Yes Status: Acute Assessment & Plan: improved on increased insulin however blood sugar down to 86 tonight the lantus was incrased to 60 from 50 today and he hs been getting 20 units with meals up from 15 will go back to the 15 units with meals. Code(s): E11.65 - TYPE 2 DIABETES MELLITUS WITH HYPERGLYCEMIA (4) Chronic cholecystitis Current Visit: Yes Status: Acute Code(s): K81.1 - CHRONIC CHOLECYSTITIS (5) Extrapyramidal and movement disorder Current Visit: Yes Status: Acute Assessment & Plan: chronic but worsened it appears on the phenergan he was on as outpatient improved after the dose of clonazepam 0.5 mg last night continue stay off the phenergan Code(s): G25.9 - EXTRAPYRAMIDAL AND MOVEMENT DISORDER, UNSPECIFIED (6) Cough Current Visit: Yes Status: Acute Code(s): R05 - COUGH (7) COPD (chronic obstructive pulmonary disease) Current Visit: Yes Status: Acute
[2018-01-21] MEDS: CLARITIN 10 MG PO SCH (21:33)
[2018-01-21] MEDS: Klonopin 0.5 MG PO SCH (21:33)
[2018-01-21] MEDS: ZOCOR 20MG PO SCH (21:33)
[2018-01-21] MEDS: Neurontin 400 MG PO SCH (21:33)
[2018-01-21] MEDS: ENOXAPARIN SODIUM SQ SCH (21:34)
[2018-01-21] MEDS: TYLENOL 325 MG PO PRN (23:59)
[2018-01-22] MEDS: Protonix 40MG Tablet PO SCH (09:16)
[2018-01-22] MEDS: Pepcid 20 MG PO SCH (09:17)
[2018-01-22] MEDS: hydroDIURIL 25 MG PO SCH (09:17)
[2018-01-22] MEDS: NEURONTIN 300 MG PO SCH ×3 (09:17→17:18)
[2018-01-22] MEDS: Zestril 10 MG PO SCH (09:18)
[2018-01-22] MEDS: Lantus Insulin SQ SCH (09:18)
[2018-01-22] MEDS: NORCO 7.5/325 MG TAB PO PRN ×4 (09:18→23:39)
[2018-01-22] MEDS: Tamiflu 75MG Capsule PO SCH ×2 (09:18→23:40)
[2018-01-22] MEDS: NovoLOG Insulin SQ SCH ×3 (09:18→17:18)
[2018-01-22] MEDS: NovoLOG Insulin SQ PRN ×2 (09:19→12:40)
--- NOTE | 2018-01-22 12:51 | PCM.NOTE ---
Date and Time: 01/22/18 1246 Subjective Assessment: Patient with fever overnight. He continues to have a bad cough that causes abdominal pain. He reports that the morphine helps with the pain. Nursing reports the surgeons have signed off. Patient reports he has been drinking fluids. He has passed gas but has not had a bowel movement. - Review of Systems Constitutional: Fever, Fatigue Eyes: No Symptoms Ears, Nose, & Throat: No Symptoms Respiratory: Cough Cardiac: No Symptoms Abdominal/Gastrointestinal: Abdominal Pain, Other (ab pain with cough) Genitourinary Symptoms: No Symptoms Musculoskeletal: No Symptoms Skin: No Symptoms Objective Exam General Appearance: no apparent distress, other (+ very frequent cough producitve of sputum) Neurologic Exam: alert, cooperative, normal mood/affect Skin Exam: normal color, warm, dry Respiratory Exam: rhonchi, other (cough; equal breath sounds) Cardiovascular Exam: regular rate/rhythm, normal heart sounds, No murmur, No friction rub, No gallop Gastrointestinal/Abdomen Exam: soft, normal bowel sounds, other (dressings in place over surgical sites, no drainage seen.), No tenderness, No distention, No mass Extremity Exam: normal inspection, other (no c/c/e) OBJECTIVE DATA Vital Signs: Vital Signs - 24 hr Temp Pulse Resp BP Pulse Ox 01/22/18 12:00 98.4 F 100 H 20 120/66 95 01/22/18 08:00 20 01/22/18 07:33 98.6 F 103 H 20 119/62 95 01/22/18 05:35 100 H 18 95 01/22/18 04:00 99.1 F 111 H 18 126/72 95 01/22/18 00:00 102.3 F 114 H 17 130/70 95 01/21/18 19:28 100.7 F 111 H 18 144/82 96 01/21/18 16:00 98.7 F 95 H 20 116/55 98 Oxygen-Last 24 hours O2 Percentage 2 Liters = 28% O2 Percentage 2 Liters = 28% O2 Percentage 2 Liters = 28% O2 Percentage 2 Liters = 28% O2 Percentage 2 Liters = 28% Pain Assessment - Last Documented Pain Intensity 7 Pain Scale Used FLACC Intake and Output: Intake & Output 01/20/18 01/21/18 01/22/18 01/23/18 06:59 06:59 06:59 06:59 Intake Total 1962 1919 120 Output Total 2054 1625 250 Balance -92 295 -130 Weight 99 kg Lab Results: Accuchecks Date 01/22/18 Date 01/22/18 Date 01/21/18 Time 11:30 Time 07:30 Time 22:00 Accucheck Value: 175 Accucheck Value: 239 Accucheck Value: 184 Accucheck Value: 86 Multi-Disciplinary Progress Notes: Multi-Disciplinary Progress Notes 01/22/18 10:40 Respiratory Note by Cortney Schulte ROOM AIR SPO2 95% Initialized on 01/22/18 10:40 - END OF NOTE Assessment/Plan (1) Influenza B Current Visit: Yes Status: Acute Assessment & Plan: Fever most likely due to influenza b infection. He continues to have a cough. Will recheck a portable chest x-ray due to the fever last night. Continue symptomatic treatment. Continue tamiflu. Code(s): J10.1 - FLU DUE TO OTH IDENT INFLUENZA VIRUS W OTH RESP MANIFEST (2) Uncontrolled type 2 diabetes mellitus Current Visit: Yes Status: Acute Qualifiers: Diabetes mellitus alf insulin use: with health workers use Code(s): E11.65 - TYPE 2 DIABETES MELLITUS WITH HYPERGLYCEMIA (3) Status post laparoscopic cholecystectomy Current Visit: Yes Status: Acute Code(s): Z90.49 - ACQUIRED ABSENCE OF OTHER SPECIFIED PARTS OF DIGESTIVE TRACT (4) Essential hypertension Current Visit: Yes Status: Acute Assessment & Plan: Currently well controlled on medications. Code(s): I10 - ESSENTIAL (PRIMARY) HYPERTENSION (5) DVT prophylaxis Current Visit: Yes Status: Acute Assessment & Plan: On lovenox. Code(s): NYZ9248 -
[2018-01-22 13:31] LABS: BASOPHIL % 0.5 % (0.0-0.4); Basophil (Absolute #) 0.05 (0-0.4); Eosinophil % 0.6 % (0.00-5.0); Eosinophil (Absolute #) 0.06 (0-0.5); Granulocyte Absolute (ANC) 6.76 (1.4-6.9); Granulocytes % 72.4 % (36.0-66.0); Hematocrit 43.4 % (42-50); Hemoglobin 14.4 gm/dl (12.5-18.0); Mean Corpuscular Hemoglobin 30.2 pg (26-32); Mean Corpuscular Hgb Concent. 33.2 g/dl (32-36); Mean Platelet Volume 11.3 fl (6-9.5); Monocyte (Absolute #) 0.98 (0.0-1.3); Monocytes % 10.5 % (0.0-12.0); Platelet Count 192 K/mm3 (150-450); Red Blood Count 4.77 M/mm3 (4.1-5.6); Red Cell Distribution Width 14.1 % (11.5-14.0); White Blood Count 9.4 K/mm3 (4.0-10.5)
[2018-01-22 13:59] LABS: ANION GAP 15.3 MEQ/L (5-15); BLOOD UREA NITROGEN 17 mg/dL (9-20); CHLORIDE 101 mmol/L (98-107); Calcium 9.7 mg/dL (8.4-10.2); Carbon Dioxide 26 mmol/L (22-30); Creatinine 1 1.02 mg/dL (0.66-1.25); Glucose 145 mg/dL (74-106); Potassium 3.8 mmol/L (3.5-5.1); SODIUM 138 mmol/L (137-145)
[2018-01-22] MEDS: Colace 100 MG PO SCH ×2 (14:27→23:41)
--- NOTE | 2018-01-22 21:11 | XRAY ---
Indication: Cough and fever. Influenza. Comparison: August 07, 2017. Portable chest underinflated accentuating the cardiopulmonary structures and crowding the lung bases. No focal infiltrate, consolidation, or large effusion. Heart is not enlarged. Bony thorax intact. Impression: Nonacute underinflated chest. Comment: Preliminary interpretation was made by [facility]. No discrepancy.
[2018-01-22] MEDS: Neurontin 400 MG PO SCH (23:40)
[2018-01-22] MEDS: CLARITIN 10 MG PO SCH (23:41)
[2018-01-22] MEDS: Klonopin 0.5 MG PO SCH (23:41)
[2018-01-22] MEDS: ENOXAPARIN SODIUM SQ SCH (23:42)
[2018-01-22] MEDS: ZOCOR 20MG PO SCH (23:51)
[2018-01-23] MEDS: TYLENOL 325 MG PO PRN (05:33)
[2018-01-23 05:46] LABS: BASOPHIL % 0.3 % (0.0-0.4); Basophil (Absolute #) 0.02 (0-0.4); Eosinophil % 0.5 % (0.00-5.0); Eosinophil (Absolute #) 0.03 (0-0.5); Granulocyte Absolute (ANC) 4.07 (1.4-6.9); Granulocytes % 62.6 % (36.0-66.0); Hematocrit 38.5 % (42-50); Hemoglobin 12.8 gm/dl (12.5-18.0); Lymphocyte (Absolute #) 1.67 (1.0-4.6); Lymphocytes % 25.7 % (24.0-44.0); Mean Cell Volume 90.8 fl (78-100); Mean Corpuscular Hemoglobin 30.2 pg (26-32); Mean Corpuscular Hgb Concent. 33.2 g/dl (32-36); Mean Platelet Volume 11.4 fl (6-9.5); Monocyte (Absolute #) 0.71 (0.0-1.3); Monocytes % 10.9 % (0.0-12.0); Platelet Count 164 K/mm3 (150-450); Red Blood Count 4.24 M/mm3 (4.1-5.6); Red Cell Distribution Width 13.9 % (11.5-14.0); White Blood Count 6.5 K/mm3 (4.0-10.5)
[2018-01-23 06:04] LABS: ANION GAP 13.4 MEQ/L (5-15); BLOOD UREA NITROGEN 17 mg/dL (9-20); CHLORIDE 98 mmol/L (98-107); Calcium 9.1 mg/dL (8.4-10.2); Carbon Dioxide 26 mmol/L (22-30); Creatinine 1 0.95 mg/dL (0.66-1.25); Glucose 197 mg/dL (74-106); Potassium 3.7 mmol/L (3.5-5.1); SODIUM 134 mmol/L (137-145)
[2018-01-23] MEDS: hydroDIURIL 25 MG PO SCH (08:50)
[2018-01-23] MEDS: NEURONTIN 300 MG PO SCH ×3 (08:50→17:47)
[2018-01-23] MEDS: Colace 100 MG PO SCH ×2 (08:51→22:40)
[2018-01-23] MEDS: Pepcid 20 MG PO SCH (08:51)
[2018-01-23] MEDS: Zestril 10 MG PO SCH (08:51)
[2018-01-23] MEDS: Protonix 40MG Tablet PO SCH (08:51)
[2018-01-23] MEDS: Tamiflu 75MG Capsule PO SCH ×2 (08:52→22:40)
[2018-01-23] MEDS: NovoLOG Insulin SQ SCH (10:09)
[2018-01-23] MEDS: Lantus Insulin SQ SCH ×2 (10:12→12:19)
--- NOTE | 2018-01-23 11:50 | PCM.NOTE ---
Date and Time: 01/23/18 1148 Subjective Assessment: Patient reports he still doesn't have an appetite since having surgery and nothing sounds good. He reports he is drinking fluids well. He states his cough seems a little better today. He has been getting up out of bed. - Review of Systems Constitutional: Fever, Fatigue Eyes: No Symptoms Ears, Nose, & Throat: No Symptoms Respiratory: Cough Cardiac: No Symptoms Abdominal/Gastrointestinal: Abdominal Pain Genitourinary Symptoms: No Symptoms Musculoskeletal: No Symptoms Skin: No Symptoms Objective Exam General Appearance: no apparent distress, alert Neurologic Exam: alert, cooperative, normal mood/affect Skin Exam: normal color, warm, dry, No rash Respiratory Exam: normal breath sounds, lungs clear, other (frequent cough), No crackles/rales, No rhonchi, No wheezing Cardiovascular Exam: regular rate/rhythm, normal heart sounds, No murmur, No friction rub, No gallop Gastrointestinal/Abdomen Exam: soft, normal bowel sounds, tenderness, other ( dressings in place), No distention, No mass, No guarding Extremity Exam: other (no c/c/e) OBJECTIVE DATA Vital Signs: Vital Signs - 24 hr Temp Pulse Resp BP Pulse Ox 01/23/18 08:00 98.8 F 90 16 118/66 96 01/23/18 04:00 100.0 F 93 H 16 96/58 95 01/23/18 00:00 100.9 F 83 16 144/83 96 01/22/18 20:00 100.0 F 104 H 16 111/73 95 01/22/18 16:00 99.9 F 114 H 20 135/77 92 L 01/22/18 12:00 98.4 F 100 H 20 120/66 95 Oxygen-Last 24 hours O2 Percentage 2 Liters = 28% O2 Percentage 2 Liters = 28% O2 Percentage 2 Liters = 28% Pain Assessment - Last Documented Pain Intensity 4 Pain Scale Used 0-10 Pain Scale Intake and Output: Intake & Output 01/21/18 01/22/18 01/23/18 01/24/18 06:59 06:59 06:59 06:59 Intake Total 1963 1920 2480 Output Total 2056 1625 1825 200 Balance -92 295 655 -200 Weight 99 kg Lab Results: Accuchecks Date 01/23/18 Date 01/22/18 Date 01/22/18 Time 09:45 Time 20:00 Time 16:30 Accucheck Value: 206 Accucheck Value: 66 Accucheck Value: 95 Lab Results-Last 24 Hours 01/22/18 01/22/18 01/23/18 Range/Units 13:20 13:20 05:10 WBC 9.4 6.5 (4.0-10.5) K/mm3 RBC 4.77 4.24 (4.1-5.6) M/mm3 Hgb 14.4 12.8 (12.5-18.0) gm/dl Hct 43.4 38.5 L (42-50) % MCV 91.0 90.8 (78-100) fl MCH 30.2 30.2 (26-32) pg MCHC 33.2 33.2 (32-36) g/dl RDW 14.1 H 13.9 (11.5-14.0) % Plt Count 192 164 (150-450) K/mm3 MPV 11.3 H 11.4 H (6-9.5) fl Gran % 72.4 H 62.6 (36.0-66.0) % Eos # (Auto) 0.06 0.03 (0-0.5) Absolute Lymphs (auto) 1.50 1.67 (1.0-4.6) Absolute Monos (auto) 0.98 0.71 (0.0-1.3) Lymphocytes % 16.0 L 25.7 (24.0-44.0) % Monocytes % 10.5 10.9 (0.0-12.0) % Eosinophils % 0.6 0.5 (0.00-5.0) % Basophils % 0.5 0.3 (0.0-0.4) % Absolute Granulocytes 6.76 4.07 (1.4-6.9) Basophils # 0.05 0.02 (0-0.4) Sodium 138 (137-145) mmol/L Potassium 3.8 (3.5-5.1) mmol/L Chloride 101 (98-107) mmol/L Carbon Dioxide 26 (22-30) mmol/L Anion Gap 15.3 H (5-15) MEQ/L BUN 17 (9-20) mg/dL Creatinine 1.02 (0.66-1.25) mg/dL Estimated GFR > 60.0 ML/MIN Glucose 145 H (74-106) mg/dL Calcium 9.7 (8.4-10.2) mg/dL 01/23/18 Range/Units 05:10 WBC (4.0-10.5) K/mm3 RBC (4.1-5.6) M/mm3 Hgb (12.5-18.0) gm/dl Hct (42-50) % MCV (78-100) fl MCH (26-32) pg MCHC (32-36) g/dl RDW (11.5-14.0) % Plt Count (150-450) K/mm3 MPV (6-9.5) fl Gran % (36.0-66.0) % Eos # (Auto) (0-0.5) Absolute Lymphs (auto) (1.0-4.6) Absolute Monos (auto) (0.0-1.3) Lymphocytes % (24.0-44.0) % Monocytes % (0.0-12.0) % Eosinophils % (0.00-5.0) % Basophils % (0.0-0.4) % Absolute Granulocytes (1.4-6.9) Basophils # (0-0.4) Sodium 134 L (137-145) mmol/L Potassium 3.7 (3.5-5.1) mmol/L Chloride 98 (98-107) mmol/L Carbon Dioxide 26 (22-30) mmol/L Anion Gap 13.4 (5-15) MEQ/L BUN 17 (9-20) mg/dL Creatinine 0.95 (0.66-1.25) mg/dL Estimated GFR > 60.0 ML/MIN Glucose 197 H (74-106) mg/dL Calcium 9.1 (8.4-10.2) mg/dL Radiology Exams: Radiology Procedures Category Date Time Status CHEST 1 VIEW (PORTABLE) Routine Exams 01/22/18 13:00 Completed Assessment/Plan (1) Influenza B Current Visit: Yes Status: Acute Assessment & Plan: Continue tamiflu and supportive treatment. Code(s): J10.1 - FLU DUE TO OTH IDENT INFLUENZA VIRUS W OTH RESP MANIFEST (2) Uncontrolled type 2 diabetes mellitus Current Visit: Yes Status: Acute Qualifiers: Diabetes mellitus superintendent container terminal insulin use: with superintendent container terminal use Assessment & Plan: Patient with hypoglycemia yesterday to 50. Since he is not eating much. Will decrease lantus to 1/2 the dose and stop short acting with meals at this time. Code(s): E11.65 - TYPE 2 DIABETES MELLITUS WITH HYPERGLYCEMIA (3) Status post laparoscopic cholecystectomy Current Visit: Yes Status: Acute Code(s): Z90.49 - ACQUIRED ABSENCE OF OTHER SPECIFIED PARTS OF DIGESTIVE TRACT (4) Essential hypertension Current Visit: Yes Status: Acute Assessment & Plan: Well controlled. Code(s): I10 - ESSENTIAL (PRIMARY) HYPERTENSION (5) DVT prophylaxis Current Visit: Yes Status: Acute Assessment & Plan: Continue lovenox. Code(s): BID0712 -
[2018-01-23] MEDS: NovoLOG Insulin SQ PRN ×2 (12:19→17:53)
[2018-01-23] MEDS: NORCO 7.5/325 MG TAB PO PRN ×2 (17:53→22:41)
[2018-01-23] MEDS: ENOXAPARIN SODIUM SQ SCH (22:39)
[2018-01-23] MEDS: Klonopin 0.5 MG PO SCH (22:40)
[2018-01-23] MEDS: CLARITIN 10 MG PO SCH (22:40)
[2018-01-23] MEDS: Neurontin 400 MG PO SCH (22:40)
[2018-01-23] MEDS: ZOCOR 20MG PO SCH (22:41)
[2018-01-24] MEDS: NORCO 7.5/325 MG TAB PO PRN (04:13)
[2018-01-24] MEDS ORDERED: CITROMA 296 ML PO ONE ×2 (08:27→13:15)
--- NOTE | 2018-01-24 08:27 | PCM.DCORD ---
- Discharge Disposition: Home, Self-Care Condition: Stable Prescriptions: New Docusate Sodium 100 mg [Colace 100 MG] 100 mg PO BID #60 capsule Clonazepam 0.5 mg [Klonopin 0.5 MG] 0.5 mg PO HS #30 tab Oxycodone/APAP 5 mg/325 mg [Percocet Tablet 5/325Mg] 1 tab PO Q4H PRN PRN #30 tablet MDD 6 PRN Reason: Pain Oseltamivir 75 mg [Tamiflu 75MG Capsule] 75 mg PO BID #3 cap Lisinopril 10 mg [Zestril 10 MG] 10 mg PO DAILY #30 tablet Ondansetron HCl [Zofran] 4 mg PO Q4H PRN #30 tablet PRN Reason: Nausea Continue PANTOPRAZOLE 40 mg Tablet [Protonix 40MG Tablet] 40 mg PO DAILY Gabapentin 400 mg [Neurontin 400 MG] 1,200 mg PO HS Insulin Aspart [NovoLOG Insulin] 15 units SQ TIDWM Atorvastatin Calcium [Lipitor 20MG Tablet] 1 tab PO QAM Testosterone Cypionate 0.7 mg IM UD Gabapentin 400 mg [Neurontin 400 MG] 600 mg PO TID Loratadine 10 mg [Claritin 10 mg] 10 mg PO HS Famotidine 40 mg PO DAILY Changed Insulin Glargine [Lantus Insulin] 50 units SQ DAILY #0 Discontinued Promethazine HCl 25 mg [Phenergan 25 mg] 25 mg PO TID Follow up with: MARIBELL PIKE [Primary Care Provider] - 01/28/18 10:00 am LORI DIXON [ACTIVE STAFF] - 02/01/18 4:00 pm (at [facility])
[2018-01-24] MEDS: Colace 100 MG PO SCH (08:34)
[2018-01-24] MEDS: NEURONTIN 300 MG PO SCH ×3 (08:34→16:33)
[2018-01-24] MEDS: Pepcid 20 MG PO SCH (08:34)
[2018-01-24] MEDS: Tamiflu 75MG Capsule PO SCH (08:34)
[2018-01-24] MEDS: Lantus Insulin SQ SCH (08:35)
[2018-01-24] MEDS: Protonix 40MG Tablet PO SCH (08:35)
[2018-01-24] MEDS: Zestril 10 MG PO SCH (08:35)
[2018-01-24] MEDS: NovoLOG Insulin SQ PRN ×3 (08:35→16:55)
[2018-01-24] MEDS: PERCOCET TABLET 5/325MG PO PRN ×2 (08:39→13:23)
[2018-01-24 16:49] VITALS: BP 116/68; PULSE 81; O2SAT 95
[2018-01-24] MEDS ORDERED: Dulcolax 10 MG SUPP PR ONE (18:22)
[2018-01-24] MEDS ORDERED: Dulcolax 10 MG SUPP ONE (18:24)
--- NOTE | 2018-01-25 19:59 | PCM.DS ---
Discharge Summary Date of Admission: 01/21/18 17:53 Date of Discharge: 01/24/2010 Admitting Physician: MARIBELL PIKE Primary Care Provider: MARIBELL PIKE Allergies Allergies codeine Adverse Reaction (Severe, Verified 01/20/18 08:23) Vomiting hydrocodone bitartrate [From Vicodin] Adverse Reaction (Severe, Verified 08:23) Vomiting Hospital Summary - Hospital Course Hospital Course: Mr. Nelson presented for outpatient surgery for chronic cholecystitis, but his had developed fever and respiratory illness a few days prior to this and the morning of surgery he was starting to have a cough. After surgery his sugar was very high his blood pressure was high and he was having cough and some shortness of breath and needing the oxygen. His tested positive for influenza B when she went to get checked while he was in surgery and post op he was checked and also positive for influenza B. He was started on tamiflu and his insulin was increased. He required 2L nc O2. He was frequent coughing and had the abdominal surgery that complicated the coarse. He had low appetite and fatigue but cxr was clear. His blood pressure improved with prn labetalol then started lisinopril hctz but bp started runnig a bit low and was changed to just lisinopril. His sugar was a little labile with decreased appetite and the illness but improved. He was feeling better ambulating well with no hypoxia in the halls on 01/24. He however had been taking pain medication and cough medication and had not had and had not had a bm yet he was given 1/2 bottle of mag citrate and a suppository and was awaiting bm but had soft abdomen with no rebound or guarding and normal bowel sounds and was tolerating po well. He was discharged home with outpatient f/u to complete the tamiflu. His pathology showed chronic cholecystitis. He was also noticed to have increased extrapyrmidal symptoms that he states have increased over the last several months. His phenergan was stopped a small dose of clonazepam hs was used and allowed him to get better rest. - Vitals & Intake/Output Vital Signs: Vital Signs Temperature 98.2 F 01/24/18 16:00 Pulse Rate 81 01/24/18 16:00 Respiratory Rate 16 01/24/18 16:00 Blood Pressure 116/68 01/24/18 16:00 O2 Sat by Pulse Oximetry 95 01/24/18 16:00 Oxygen-Last Documented O2 Percentage 2 Liters = 28% Intake & Output: Intake & Output 01/23/18 01/24/18 01/25/18 01/26/18 11:59 11:59 11:59 11:59 Intake Total 2360 2060 960 Output Total 1775 1650 600 Balance 585 410 360 - Lab Result Diagrams: 01/23/18 05:10 01/23/18 05:10 - Procedures and Test Procedures and Tests throughout Hospitalization: Therapy Orders & Screens 01/21/18 05:35 Oxygen NASAL CANNULA 2 lpm Comment: Diagnosis: HTN, hyperglycemia neb [Respiratory Nebulizer] UD Comment: DUONEB PRN Diagnosis: HTN, hyperglycemia Discharge Exam General Appearance: no apparent distress, alert Neurologic Exam: alert, oriented x 3, cooperative, normal mood/affect, nml cerebellar function, sensation nml, No motor deficits Skin Exam: normal color, warm, dry Eye Exam: PERRL, EOMI, eyes nml inspection Ears, Nose, Throat Exam: normal ENT inspection, pharynx normal, moist mucous membranes Neck Exam: normal inspection, non-tender, supple, full range of motion Respiratory Exam: normal breath sounds, lungs clear, No respiratory distress Cardiovascular Exam: regular rate/rhythm, normal heart sounds Gastrointestinal/Abdomen Exam: soft, other (incisions well approximated with steri strips in place), No tenderness, No mass Extremity Exam: normal inspection, normal range of motion Back Exam: normal inspection, normal range of motion, No CVA tenderness, No vertebral tenderness Male Genitalia Exam: deferred Rectal Exam: deferred Final Diagnosis/Problem List - Final Discharge Diagnosis/Problem (1) Influenza B Status: Acute (2) Uncontrolled hypertension Status: Acute (3) Uncontrolled type 2 diabetes mellitus Status: Acute (4) Chronic cholecystitis Status: Acute (5) Extrapyramidal and movement disorder Status: Acute (6) Cough Status: Acute (7) COPD (chronic obstructive pulmonary disease) Status: Acute - Discharge Discharge Date: 01/24/18 Disposition: Home, Self-Care Condition: Stable Prescriptions: New Docusate Sodium 100 mg [Colace 100 MG] 100 mg PO BID #60 capsule Clonazepam 0.5 mg [Klonopin 0.5 MG] 0.5 mg PO HS #30 tab Oxycodone/APAP 5 mg/325 mg [Percocet Tablet 5/325Mg] 1 tab PO Q4H PRN PRN #30 tablet MDD 6 PRN Reason: Pain Oseltamivir 75 mg [Tamiflu 75MG Capsule] 75 mg PO BID #3 cap Lisinopril 10 mg [Zestril 10 MG] 10 mg PO DAILY #30 tablet Ondansetron HCl [Zofran] 4 mg PO Q4H PRN #30 tablet PRN Reason: Nausea Sennosides [Senna Laxative] 25 mg PO BIDPRN PRN #60 tablet PRN Reason: Constipation Continue PANTOPRAZOLE 40 mg Tablet [Protonix 40MG Tablet] 40 mg PO DAILY Gabapentin 400 mg [Neurontin 400 MG] 1,200 mg PO HS Insulin Aspart [NovoLOG Insulin] 15 units SQ TIDWM Atorvastatin Calcium [Lipitor 20MG Tablet] 1 tab PO QAM Testosterone Cypionate 0.7 mg IM UD Gabapentin 400 mg [Neurontin 400 MG] 600 mg PO TID Loratadine 10 mg [Claritin 10 mg] 10 mg PO HS Famotidine 40 mg PO DAILY Changed Insulin Glargine [Lantus Insulin] 50 units SQ DAILY #0 Discontinued Promethazine HCl 25 mg [Phenergan 25 mg] 25 mg PO TID Instructions: Type 2 Diabetes, Flu, Adult (DC), High Blood Pressure (DC), Cholecystectomy, Laparoscopic Surgery Follow up with: MARIBELL PIKE [Primary Care Provider] - 01/28/18 10:00 am LORI DIXON [ACTIVE STAFF] - 02/01/18 4:00 pm (at [facility]) Forms: Discharge Instructions
[2018-01-28] MEDS ORDERED: DEPO-TESTOSTERONE IM SCH (13:45)
== END 2018-01-24 20:10 | disposition home or self-care (01) | DRG 988 ==
LOC: SDC 07:52 → MED SURG 13:00 → OBSVTOIN 01-21 17:35 → INTOOBSV 01-21 17:35 → OBSVTOIN 01-21 17:53
PROVIDERS: ADMIT Family Medicine; ATTEND Family Medicine
PROC: 0FT44ZZ Resection of Gallbladder, Percutaneous Endoscopic Approach (ICD-10-PCS; principal; 2018-01-20)
DX: J10.1 Influenza due to other identified influenza virus with other respiratory manifestations (principal); G25.9 Extrapyramidal and movement disorder, unspecified; I10 Essential (primary) hypertension; E11.65 Type 2 diabetes mellitus with hyperglycemia; R05 Cough; J44.9 Chronic obstructive pulmonary disease, unspecified; K81.1 Chronic cholecystitis; K82.4 Cholesterolosis of gallbladder; Z79.899 Other long term (current) drug therapy; Z90.49 Acquired absence of other specified parts of digestive tract
CPT/HCPCS: 36415; 71045; 80048; 80053; 82962; 83036; 85025; 85027; 87631; 88304; 94760; G0378; J0330; J0360; J0694; J1100; J1170; J1650; J1885; J2270; J2405; J2704; J3010; A9270-GY

== ENCOUNTER 2019-03-25 12:34 | Observation (INO) | payer MEDICARE ==
[2019-03-25] MEDS ORDERED: Sodium Chloride 0.9% 1000 ML 1,000 ML ONE ×3 (12:41→16:33)
[2019-03-25] MEDS ORDERED: NITRO-BID 2% UD PACKETS TOP ONE (12:45)
[2019-03-25] MEDS ORDERED: BABY ASPIRIN 81 MG CHEW PO ONE (12:45)
[2019-03-25] MEDS ORDERED: Sodium Chloride 0.9% 1000 ML 1,000 ML IV STA ×2 (12:45→13:19)
[2019-03-25] MEDS ORDERED: Zofran 4 MG/2 ML VIAL IV ONE ×2 (12:47→16:55)
[2019-03-25] MEDS ORDERED: GI COCKTAIL 45 ML (Maalox/Lidocaine) PO ONE (12:48)
[2019-03-25] MEDS ORDERED: Zofran 4 MG/2 ML VIAL ONE (12:49)
[2019-03-25] MEDS ORDERED: BABY ASPIRIN 81 MG CHEW ONE (12:50)
[2019-03-25] MEDS ORDERED: NITRO-BID 2% UD PACKETS ONE (12:50)
[2019-03-25 13:05] LABS: ALBUMIN 4.8 g/dL (3.5-5.0); ANION GAP 41.6 MEQ/L (5-15); BILIRUBIN,TOTAL 1.7 mg/dL (0.2-1.3); Calcium 10.3 mg/dL (8.4-10.2); Creatinine 1 1.49 mg/dL (0.66-1.25); Potassium 5.4 mmol/L (3.5-5.1); Total Protein 7.7 g/dL (6.3-8.2)
[2019-03-25 13:10] LABS: BASOPHIL % 0.3 % (0.0-0.4); Basophil (Absolute #) 0.08 (0-0.4); Eosinophil % 0.2 % (0.00-5.0); Eosinophil (Absolute #) 0.04 (0-0.5); Granulocyte Absolute (ANC) 21.92 (1.4-6.9); Granulocytes % 89.5 % (36.0-66.0); Hematocrit 47.8 % (42-50); Hemoglobin 15.7 gm/dl (12.5-18.0); Lymphocyte (Absolute #) 1.36 (1.0-4.6); Lymphocytes % 5.6 % (24.0-44.0); Mean Cell Volume 91.7 fl (78-100); Mean Corpuscular Hemoglobin 30.1 pg (26-32); Mean Corpuscular Hgb Concent. 32.8 g/dl (32-36); Mean Platelet Volume 12.6 fl (6-9.5); Monocyte (Absolute #) 1.08 (0.0-1.3); Monocytes % 4.4 % (0.0-12.0); Platelet Count 367 K/mm3 (150-450); Red Blood Count 5.21 M/mm3 (4.1-5.6); Red Cell Distribution Width 13.7 % (11.5-14.0); White Blood Count 24.5 K/mm3 (4.0-10.5)
[2019-03-25 13:29] LABS: A-aADO2 122; ABG HEMOGLOBIN 14.7; ARTERIAL BLD GAS O2 SATURATION 80.1 % (95-100); ARTERIAL BLOOD GAS BASE EXCESS -21.8 (-2.0-2.0); ARTERIAL BLOOD GAS FIO2 28 %; ARTERIAL BLOOD GAS PCO2 25 mmHg (35-45); ARTERIAL BLOOD GAS pH 7.06 (7.35-7.45); CARBOXYHEMOGLOBIN 1.7 % THgb (0.0-6.9); HCO3- 7.1 (22-28); HGB O2 SAT 77.9 g/dF (94-100); Methhemoglobin 1.1 % (1.4-1.5); paO2 pAO1 0.27
[2019-03-25 13:30] LABS: ABG SITE RIGHT BRACHIAL; ARTERIAL BLOOD GAS PO2 46 mmHg (75-100)
[2019-03-25] MEDS ORDERED: SODIUM BICARBONATE IV SCH (13:30)
[2019-03-25] MEDS ORDERED: [UNRECOGNIZED DRUG - OTHER] IV SCH (13:30)
[2019-03-25 13:31] LABS: Lactic Acid 3.7 (0.4-2.0)
[2019-03-25] MEDS ORDERED: Zosyn 3.375GM/100 Ml D5W 3.375 GM/100 ML IVPB IV STA (13:38)
[2019-03-25] MEDS ORDERED: Vancomycin 1GM/ Ns 250ML*** 1 GM/250 ML IVPB IV ONE (13:39)
[2019-03-25] MEDS ORDERED: XYLOCAINE HCl Viscous ONE (13:51)
[2019-03-25] MEDS ORDERED: MAALOX ES 30 ML UNIT DOSE ONE (13:52)
[2019-03-25] MEDS ORDERED: Zosyn 3.375GM/100 Ml D5W 0 GM/0 ML IVPB IV ONE (13:57)
[2019-03-25 13:58] LABS: Slide Review 1 YES
[2019-03-25 14:41] LABS: Appearance CLEAR (CLEAR); Bacteria NONE SEEN /HPF (NEGATIVE); Bilirubin NEGATIVE (NEGATIVE); Blood NEGATIVE Ery/ul (0-5); Glucose >=500 mg/dL (NEGATIVE); Hyaline Casts 0-2 /LPF (0-2); Ketones MODERATE (NEGATIVE); Leukocyte Esterase NEGATIVE (NEGATIVE); Nitrite NEGATIVE (NEGATIVE); Protein,Urine Dip NEGATIVE (Negative); RBC NONE SEEN /HPF (0-2); Specific Gravity 1.021 (1.005-1.025); Urobilinogen NEGATIVE mg/dL (0-1)
[2019-03-25] MEDS ORDERED: NOVOLIN R INSULIN (FOR DRIPS)** 100 UNITS in Sodium Chloride 0.9% 100 ML IVPB 100 ML IV PRN (15:40)
--- NOTE | 2019-03-25 16:06 | ERPHSYRPT ---
- History of Present Illness Source: patient Exam Limitations: no limitations Patient Subjective Stated Complaint: VOMITING AND CHEST PAIN SINCE THIS AM, STATES PATIENT'S BS IS VERY HIGH. HAS BEEN CAMPING AND DIDN'T TAKE INSULIN WITH HIM. Triage Nursing Assessment: TO ROOM PER W/C. SKIN W/D, COLOR NORMAL, RESP EASY. PULSES STRONG. PATIENT WEAK AND ASSISTED TO COT FROM W/C. C/O NAUSEA BUT REQUESTING ICE CHIPS. NO VOMITING AT PRESENT TIME. Physician History: Pt is a 58 y/o male that presented to the ED with chest discomfort and nausea and vomiting. Pt stated, he went camping and he forgot to inject his Insulin. Today when he checked his BG the glucometer showed "high". His gave him 50iu of Novolog SQ. Pt complains of F/C, N/V and abdominal pain. Pt has non reproducable chest discomfort on the L. No dysuria, frequency and urgency. Timing/Duration: today Severity: severe Associated Symptoms: nausea, vomiting, abdominal pain, chills, chest pain, fever , malaise Allergies/Adverse Reactions: codeine Adverse Reaction (Severe, Verified 03/25/19 13:04) Vomiting hydrocodone bitartrate [From Vicodin] Adverse Reaction (Severe, Verified 13:04) Vomiting acetaminophen [From Darvocet-N 100] Adverse Reaction (Verified 03/25/19 13:04) propoxyphene [From Darvocet-N 100] Adverse Reaction (Verified 03/25/19 13:04) Home Medications: Insulin Aspart [NovoLOG Insulin] 15 units SQ UD 05/29/16 [History] Atorvastatin Calcium [Lipitor 20MG Tablet] 20 mg PO QAM 11/12/16 [History] Loratadine 10 mg [Claritin 10 mg] 10 mg PO HS 01/12/18 [History] Fluticasone Propionate [Flonase NASAL] 16 gm NS DAILY 03/25/19 [History] Gabapentin 1,200 mg PO HS 03/25/19 [History] Gabapentin 600 mg PO TIDWM 03/25/19 [History] Hx Tetanus, Diphtheria Vaccination/Date Given: No Hx Influenza Vaccination/Date Given: No Hx Pneumococcal Vaccination/Date Given: Yes - Review of Systems Constitutional: Fever, Chills, Malaise, Weakness Eyes: No Symptoms Ears, Nose, & Throat: No Symptoms Respiratory: No Cough, No Dyspnea Cardiac: Chest Pain Abdominal/Gastrointestinal: Abdominal Pain, Nausea, Vomiting Genitourinary Symptoms: No Dysuria Musculoskeletal: No Back Pain, No Neck Pain Neurological: No Dizziness, No Focal Weakness, No Sensory Changes - Past Medical History Pertinent Past Medical History: Yes Neurological History: No Pertinent History ENT History: No Pertinent History Cardiac History: High Cholesterol Respiratory History: Pneumonia Endocrine Medical History: Diabetes Type II Musculoskeletal History: No Pertinent History GI Medical History: Other History: No Pertinent History Psycho-Social History: No Pertinent History Male Reproductive Disorders: No Pertinent History Other Medical History: FX L LEG AND FOOT subsequent infection. diarrhea x3 weeks, was hospitalized for gi sx - Past Surgical History Past Surgical History: Yes Neuro Surgical History: No Pertinent History Cardiac: No Pertinent History Respiratory: No Pertinent History Gastrointestinal: Cholecystectomy, Hernia Repair Genitourinary: No Pertinent History Musculoskeletal: Orthopedic Surgery Male Surgical History: No Pertinent History Other Surgical History: right femur fixed at age 15. left foot broke at age 20. left leg and foot surgery ,,I&D of left foot - Social History Smoking Status: Never smoker Exposure to second hand smoke: No Drug Use: none Patient Lives Alone: No - Nursing Vital Signs Nursing Vital Signs: Initial Vital Signs Temperature 97.9 F 03/25/19 12:46 Pulse Rate 102 H 03/25/19 12:46 Respiratory Rate 16 03/25/19 12:46 Blood Pressure 106/63 03/25/19 12:46 O2 Sat by Pulse Oximetry 96 03/25/19 12:46 Pain Scale Pain Intensity 4 - Physical Exam General Appearance: severe distress Eye Exam: PERRL/EOMI, eyes nml inspection Ears, Nose, Throat Exam: normal ENT inspection, TMs normal, pharynx normal, moist mucous membranes Neck Exam: normal inspection, non-tender, supple, full range of motion Respiratory Exam: normal breath sounds, lungs clear, No respiratory distress Cardiovascular Exam: regular rate/rhythm, normal heart sounds, normal peripheral pulses Gastrointestinal/Abdomen Exam: tenderness (Difdfused) Back Exam: normal inspection, normal range of motion, No CVA tenderness, No vertebral tenderness Extremity Exam: normal inspection, normal range of motion, pelvis stable Neurologic Exam: alert, oriented x 3, cooperative, normal mood/affect, nml cerebellar function, nml station & gait, sensation nml, No motor deficits Skin Exam: normal color, warm, dry, No rash Lymphatic Exam: No adenopathy SpO2: 98 - Course Nursing assessment & vital signs reviewed: Yes EKG Interpreted by Me: Sinus Tach (106bpm), Non-specific ST Changes Ordered Tests: Active Orders 24 hr Category Date Time Status IV Insertion-2nd Peripheral STAT Care 03/25/19 13:55 Active Oxygen-ED Only Nasal Cannula 2 lpm Care 03/25/19 12:45 Active CHEST 1 VIEW (PORTABLE) Stat Exams 03/25/19 12:46 Taken ABG [ARTERIAL BLOOD GASES] Stat Lab 03/25/19 13:15 Completed BLOOD CULTURE Stat Lab 03/25/19 13:44 Received BMP Stat Lab 03/25/19 15:40 Ordered CBC W DIFF Stat Lab 03/25/19 12:49 Completed CMP Stat Lab 03/25/19 12:49 Completed D-DIMER QUANTITATION Stat Lab 03/25/19 12:51 Completed Lactic Acid Stat Lab 03/25/19 13:18 Completed Lactic Acid Stat Lab 03/25/19 15:31 Ordered TROPONIN Q3H Lab 03/25/19 12:49 Completed TROPONIN Q3H Lab 03/25/19 16:00 Ordered TROPONIN Q3H Lab 03/25/19 19:00 Ordered TROPONIN Q3H Lab 03/25/19 22:00 Ordered TROPONIN Q3H Lab 03/26/19 01:00 Ordered Urinalysis with Microscopy Stat Lab 03/25/19 14:25 Completed Medication Summary Generic Name Dose Route Start Last Admin Trade Name Freq PRN Reason Stop Dose Admin Sodium Bicarbonate 150 meq/ 1,150 mls @ 200 mls/hr 03/25/19 13:30 03/25/19 13 :36 Sodium Chloride IV 03/25/19 17:00 200 ml/hr .Q5H45M AURA 200 mls/hr Administration Insulin Human Regular 100 101 mls @ 7.93 mls/hr 03/25/19 15:40 units/ Sodium Chloride IV 04/24/19 15:39 .[id number] PRN DKA/HYPERGYCEMIA Protocol 0.1 UNITS/KG/HR Discontinued Medications Generic Name Dose Route Start Last Admin Trade Name Freq PRN Reason Stop Dose Admin Al Hydrox/Mg Hydrox/Simethicone Confirm 03/25/19 13:52 Maalox Es 30 Ml Unit Dose Administered 03/25/19 13:53 Dose 30 ml .ROUTE .STK-MED ONE Aspirin 324 mg 03/25/19 12:45 03/25/19 13:26 Baby Aspirin 81 Mg Chew PO 03/25/19 12:46 324 mg STAT ONE Administration Aspirin Confirm 03/25/19 12:50 Baby Aspirin 81 Mg Chew Administered 03/25/19 12:51 Dose 324 mg .ROUTE .STK-MED ONE Sodium Chloride Confirm 03/25/19 12:41 Sodium Chloride 0.9% 1000 Ml Administered 03/25/19 12:42 Dose 1,000 mls @ ud .ROUTE .STK-MED ONE Sodium Chloride 1,000 mls @ 999 mls/hr 03/25/19 12:45 03/25/19 15:43 Sodium Chloride 0.9% 1000 Ml IV 03/25/19 13:45 Infused .Q1H1M STA Infusion Sodium Chloride Confirm 03/25/19 13:18 Sodium Chloride 0.9% 1000 Ml Administered 03/25/19 13:19 Dose 1,000 mls @ ud .ROUTE .STK-MED ONE Sodium Chloride 1,000 mls @ 999 mls/hr 03/25/19 13:19 03/25/19 15:42 Sodium Chloride 0.9% 1000 Ml IV 03/25/19 14:19 Infused .Q1H1M STA Infusion Vancomycin HCl 1 gm in 250 mls @ 167 mls/hr 03/25/19 13:39 03/25/19 14:56 Vancomycin 1gm/ Ns 250ml IV 03/25/19 15:08 167 mls/hr STAT ONE Administration Piperacillin Sod/Tazobactam Sod 3.375 gm in 100 mls @ 200 mls/hr 03/25/19 13: 38 03/25/19 15:42 Zosyn 3.375gm/100 Ml D5w IV 03/25/19 14:07 Infused STAT STA Infusion Piperacillin Sod/Tazobactam Sod Confirm 03/25/19 13:57 Zosyn 3.375gm/100 Ml D5w Administered 03/25/19 13:58 Dose 3.375 gm in 100 mls @ ud IV .STK-MED ONE Lidocaine HCl Confirm 03/25/19 13:51 Xylocaine Hcl Viscous * Administered 03/25/19 13:52 Dose 15 ml .ROUTE .STK-MED ONE Magnesium Hydroxide 45 ml 03/25/19 12:48 03/25/19 13:53 Gi Cocktail 45 Ml (Maalox/Lidocaine) PO 03/25/19 12:49 45 ml STAT ONE Administration Nitroglycerin 1 gm 03/25/19 12:45 03/25/19 13:40 Nitro-Bid 2% Ud Packets TOP 03/25/19 12:46 Not Given STAT ONE Nitroglycerin Confirm 03/25/19 12:50 Nitro-Bid 2% Ud Packets Administered 03/25/19 12:51 Dose 1 gm .ROUTE .STK-MED ONE Ondansetron HCl 4 mg 03/25/19 12:47 03/25/19 12:53 Zofran 4 Mg/2 Ml Vial IV 03/25/19 12:48 4 mg STAT ONE Administration Ondansetron HCl Confirm 03/25/19 12:49 Zofran 4 Mg/2 Ml Vial Administered 03/25/19 12:50 Dose 4 mg .ROUTE .STK-MED ONE Lab/Rad Data: Laboratory Result Diagrams 03/25/19 12:49 03/25/19 12:49 Laboratory Results 03/25/19 03/25/19 03/25/19 Range/Units 14:25 13:18 13:15 WBC (4.0-10.5) K/mm3 RBC (4.1-5.6) M/mm3 Hgb (12.5-18.0) gm/dl Hct (42-50) % MCV (78-100) fl MCH (26-32) pg MCHC (32-36) g/dl RDW (11.5-14.0) % Plt Count (150-450) K/mm3 MPV (6-9.5) fl Gran % (36.0-66.0) % Eos # (Auto) (0-0.5) Absolute Lymphs (auto) (1.0-4.6) Absolute Monos (auto) (0.0-1.3) Lymphocytes % (24.0-44.0) % Monocytes % (0.0-12.0) % Eosinophils % (0.00-5.0) % Basophils % (0.0-0.4) % Absolute Granulocytes (1.4-6.9) Basophils # (0-0.4) D-Dimer (215-500) ng/mL Puncture Site RIGHT BRACHIAL pCO2 25 L (35-45) mmHg pO2 46 L* (75-100) mmHg Base Excess -21.8 L (-2.0-2.0) O2 Saturation 77.9 L (94-100) g/dF ABG pH 7.06 L* (7.35-7.45) ABG HCO3 7.1 L* (22-28) ABG O2 Sat (Measured) 80.1 L (95-100) % Tone Test NOT APPLICABLE A-a Gradient 122 a/A Ratio 0.27 Hemoglobin 14.7 Carboxyhemoglobin 1.7 (0.0-6.9) % THgb Methemoglobin 1.1 L (1.4-1.5) % Temperature 37.0 C POC O2 Flow Rate 28 % Sodium (137-145) mmol/L Potassium 5.0 (3.5-5.1) mmol/L Chloride (98-107) mmol/L Carbon Dioxide (22-30) mmol/L Anion Gap (5-15) MEQ/L BUN (9-20) mg/dL Creatinine (0.66-1.25) mg/dL Estimated GFR ML/MIN Glucose (74-106) mg/dL Lactic Acid 3.7 H (0.4-2.0) Calcium (8.4-10.2) mg/dL Total Bilirubin (0.2-1.3) mg/dL AST (17-59) U/L ALT (0-50) U/L Alkaline Phosphatase (38-126) U/L Troponin I (0.000-0.034) ng/mL Serum Total Protein (6.3-8.2) g/dL Albumin (3.5-5.0) g/dL Urine Color STRAW (YELLOW) Urine Appearance CLEAR (CLEAR) Urine pH 5.0 (5-6) Ur Specific Helen 1.021 (1.005-1.025) Urine Protein NEGATIVE (Negative) Urine Ketones MODERATE (NEGATIVE) Urine Blood NEGATIVE (0-5) Rodo/ul Urine Nitrite NEGATIVE (NEGATIVE) Urine Bilirubin NEGATIVE (NEGATIVE) Urine Urobilinogen NEGATIVE (0-1) mg/dL Ur Leukocyte Esterase NEGATIVE (NEGATIVE) Urine WBC (Auto) NONE (0-5) /HPF Urine RBC (Auto) NONE SEEN (0-2) /HPF U Hyaline Cast (Auto) 0-2 (0-2) /LPF U Epithel Cells (Auto) NONE (FEW) /HPF Urine Bacteria (Auto) NONE SEEN (NEGATIVE) /HPF Urine Glucose >=500 (NEGATIVE) mg/dL Slides for Path Review 03/25/19 03/25/19 03/25/19 Range/Units 12:51 12:49 12:49 WBC (4.0-10.5) K/mm3 RBC (4.1-5.6) M/mm3 Hgb (12.5-18.0) gm/dl Hct (42-50) % MCV (78-100) fl MCH (26-32) pg MCHC (32-36) g/dl RDW (11.5-14.0) % Plt Count (150-450) K/mm3 MPV (6-9.5) fl Gran % (36.0-66.0) % Eos # (Auto) (0-0.5) Absolute Lymphs (auto) (1.0-4.6) Absolute Monos (auto) (0.0-1.3) Lymphocytes % (24.0-44.0) % Monocytes % (0.0-12.0) % Eosinophils % (0.00-5.0) % Basophils % (0.0-0.4) % Absolute Granulocytes (1.4-6.9) Basophils # (0-0.4) D-Dimer 228 (215-500) ng/mL Puncture Site pCO2 (35-45) mmHg pO2 (75-100) mmHg Base Excess (-2.0-2.0) O2 Saturation (94-100) g/dF ABG pH (7.35-7.45) ABG HCO3 (22-28) ABG O2 Sat (Measured) (95-100) % Tone Test A-a Gradient a/A Ratio Hemoglobin Carboxyhemoglobin (0.0-6.9) % THgb Methemoglobin (1.4-1.5) % Temperature C POC O2 Flow Rate % Sodium 140 (137-145) mmol/L Potassium 5.4 H (3.5-5.1) mmol/L Chloride 98 (98-107) mmol/L Carbon Dioxide 6 L* (22-30) mmol/L Anion Gap 41.6 H (5-15) MEQ/L BUN 35 H (9-20) mg/dL Creatinine 1.49 H (0.66-1.25) mg/dL Estimated GFR 51.3 ML/MIN Glucose 682 H* (74-106) mg/dL Lactic Acid (0.4-2.0) Calcium 10.3 H (8.4-10.2) mg/dL Total Bilirubin 1.70 H (0.2-1.3) mg/dL AST 28 (17-59) U/L ALT 22 (0-50) U/L Alkaline Phosphatase 121 (38-126) U/L Troponin I < 0.012 (0.000-0.034) ng/mL Serum Total Protein 7.7 (6.3-8.2) g/dL Albumin 4.8 (3.5-5.0) g/dL Urine Color (YELLOW) Urine Appearance (CLEAR) Urine pH (5-6) Ur Specific Helen (1.005-1.025) Urine Protein (Negative) Urine Ketones (NEGATIVE) Urine Blood (0-5) Rodo/ul Urine Nitrite (NEGATIVE) Urine Bilirubin (NEGATIVE) Urine Urobilinogen (0-1) mg/dL Ur Leukocyte Esterase (NEGATIVE) Urine WBC (Auto) (0-5) /HPF Urine RBC (Auto) (0-2) /HPF U Hyaline Cast (Auto) (0-2) /LPF U Epithel Cells (Auto) (FEW) /HPF Urine Bacteria (Auto) (NEGATIVE) /HPF Urine Glucose (NEGATIVE) mg/dL Slides for Path Review 03/25/19 Range/Units 12:49 WBC 24.5 H (4.0-10.5) K/mm3 RBC 5.21 (4.1-5.6) M/mm3 Hgb 15.7 (12.5-18.0) gm/dl Hct 47.8 (42-50) % MCV 91.7 (78-100) fl MCH 30.1 (26-32) pg MCHC 32.8 (32-36) g/dl RDW 13.7 (11.5-14.0) % Plt Count 367 (150-450) K/mm3 MPV 12.6 H (6-9.5) fl Gran % 89.5 H (36.0-66.0) % Eos # (Auto) 0.04 (0-0.5) Absolute Lymphs (auto) 1.36 (1.0-4.6) Absolute Monos (auto) 1.08 (0.0-1.3) Lymphocytes % 5.6 L (24.0-44.0) % Monocytes % 4.4 (0.0-12.0) % Eosinophils % 0.2 (0.00-5.0) % Basophils % 0.3 (0.0-0.4) % Absolute Granulocytes 21.92 H (1.4-6.9) Basophils # 0.08 (0-0.4) D-Dimer (215-500) ng/mL Puncture Site pCO2 (35-45) mmHg pO2 (75-100) mmHg Base Excess (-2.0-2.0) O2 Saturation (94-100) g/dF ABG pH (7.35-7.45) ABG HCO3 (22-28) ABG O2 Sat (Measured) (95-100) % Tone Test A-a Gradient a/A Ratio Hemoglobin Carboxyhemoglobin (0.0-6.9) % THgb Methemoglobin (1.4-1.5) % Temperature C POC O2 Flow Rate % Sodium (137-145) mmol/L Potassium (3.5-5.1) mmol/L Chloride (98-107) mmol/L Carbon Dioxide (22-30) mmol/L Anion Gap (5-15) MEQ/L BUN (9-20) mg/dL Creatinine (0.66-1.25) mg/dL Estimated GFR ML/MIN Glucose (74-106) mg/dL Lactic Acid (0.4-2.0) Calcium (8.4-10.2) mg/dL Total Bilirubin (0.2-1.3) mg/dL AST (17-59) U/L ALT (0-50) U/L Alkaline Phosphatase (38-126) U/L Troponin I (0.000-0.034) ng/mL Serum Total Protein (6.3-8.2) g/dL Albumin (3.5-5.0) g/dL Urine Color (YELLOW) Urine Appearance (CLEAR) Urine pH (5-6) Ur Specific Helen (1.005-1.025) Urine Protein (Negative) Urine Ketones (NEGATIVE) Urine Blood (0-5) Rodo/ul Urine Nitrite (NEGATIVE) Urine Bilirubin (NEGATIVE) Urine Urobilinogen (0-1) mg/dL Ur Leukocyte Esterase (NEGATIVE) Urine WBC (Auto) (0-5) /HPF Urine RBC (Auto) (0-2) /HPF U Hyaline Cast (Auto) (0-2) /LPF U Epithel Cells (Auto) (FEW) /HPF Urine Bacteria (Auto) (NEGATIVE) /HPF Urine Glucose (NEGATIVE) mg/dL Slides for Path Review YES - Progress Progress: improved Progress Note: 03/25/19 16:09 Pt had lab works and ABG that showed PH of 7.06, CO2 of 25, O2 of 46. Lactate of 3.7, Glucose 682, sCr is 1.49, K 5.4, and Anion gap is 41.6. CXR was negative, and UA was normal besides high glucose in the urine. Pt did get 2 lit NSS, and bicarb gtt at 200ml/hr. Pt got Vancomycin and Zosyn IV. He is placed on Insulin gtt, and Dr Saunders was contacted for admit. Pt is accepted for admit to ICU. Other lab work is pending. Will see patient in: hospital (full admit) - Departure Departure Disposition: In-patient Admission Clinical Impression: DKA (diabetic ketoacidoses) Condition: Serious Critical Care Time: Yes Critical Care Time(excluding separately billable procedures): 30-74 minutes Referrals: DOCTOR,NO FAMILY [Primary Care Provider] - Plan of Treatment: Pt to be admitted to the ICU, Dr Saunders is accepting.
[2019-03-25] MEDS ORDERED: Zofran 4 MG/2 ML VIAL IV PRN (16:14)
[2019-03-25] MEDS ORDERED: Sodium Chloride 0.9% 1000 ML 1,000 ML IV SCH (16:15)
[2019-03-25 16:42] LABS: ANION GAP 28.1 MEQ/L (5-15); BLOOD UREA NITROGEN 33 mg/dL (9-20); CHLORIDE 107 mmol/L (98-107); Calcium 9.2 mg/dL (8.4-10.2); Creatinine 1 1.27 mg/dL (0.66-1.25); Glucose 375 mg/dL (74-106); Potassium 4.5 mmol/L (3.5-5.1); SODIUM 143 mmol/L (137-145)
[2019-03-25 16:48] LABS: Carbon Dioxide 13 mmol/L (22-30)
[2019-03-25] MEDS: Zosyn 3.375GM/100 Ml D5W 3.375 GM/100 ML IVPB IV SCH ×2 (18:32→23:49)
[2019-03-25 19:48] LABS: Lactic Acid 1.9 (0.4-2.0)
[2019-03-25] MEDS: Sodium Chloride 0.9% W/ 20 mEq KCl/LITER 1,000 ML IV SCH (20:08)
[2019-03-25 20:45] LABS: A-aADO2 20; ABG HEMOGLOBIN 12.6; ABG POTASSIUM 3.8 (3.5-5.1); ARTERIAL BLD GAS O2 SATURATION 98.8 % (95-100); ARTERIAL BLOOD GAS BASE EXCESS 0.3 (-2.0-2.0); ARTERIAL BLOOD GAS FIO2 21 %; ARTERIAL BLOOD GAS PCO2 28 mmHg (35-45); ARTERIAL BLOOD GAS PO2 95 mmHg (75-100); ARTERIAL BLOOD GAS pH 7.51 (7.35-7.45); CARBOXYHEMOGLOBIN 2.9 % THgb (0.0-6.9); HCO3- 22.3 (22-28); HGB O2 SAT 94.8 g/dF (94-100); Methhemoglobin 1.1 % (1.4-1.5); paO2 pAO1 0.83
[2019-03-25 20:46] LABS: ABG SITE LEFT BRACHIAL; ALLEN TEST OK? YES
[2019-03-25] MEDS: MORPHINE SULFATE 2 MG INJ IV PRN (20:53)
[2019-03-25] MEDS: TYLENOL EXTRA STRENGTH 500 MG PO PRN (20:57)
[2019-03-25 21:30] LABS: ANION GAP 14.1 MEQ/L (5-15); BLOOD UREA NITROGEN 28 mg/dL (9-20); CHLORIDE 111 mmol/L (98-107); Calcium 8.8 mg/dL (8.4-10.2); Carbon Dioxide 22 mmol/L (22-30); Creatinine 1 0.97 mg/dL (0.66-1.25); Glucose 168 mg/dL (74-106); Potassium 3.9 mmol/L (3.5-5.1); SODIUM 143 mmol/L (137-145)
--- NOTE | 2019-03-25 21:41 | XRAY ---
Indication: Chest pain. Comparison: December 12, 2018. Portable chest again demonstrates normal heart and lungs with incidental calcified granulomas. Bony thorax intact again with mild degenerative changes. No new/acute findings.
[2019-03-25] MEDS ORDERED: Neurontin 400 MG PO ONE (22:00)
[2019-03-26] MEDS: Sodium Chloride 0.9% W/ 20 mEq KCl/LITER 1,000 ML IV SCH (01:37)
[2019-03-26 02:06] LABS: ANION GAP 18.1 MEQ/L (5-15); BLOOD UREA NITROGEN 26 mg/dL (9-20); CHLORIDE 109 mmol/L (98-107); Calcium 8.1 mg/dL (8.4-10.2); Carbon Dioxide 20 mmol/L (22-30); Creatinine 1 0.96 mg/dL (0.66-1.25); Glucose 232 mg/dL (74-106); Potassium 4.5 mmol/L (3.5-5.1); SODIUM 142 mmol/L (137-145)
[2019-03-26] MEDS: MORPHINE SULFATE 2 MG INJ IV PRN ×3 (03:21→12:34)
[2019-03-26] MEDS ORDERED: Lantus Insulin ONE (03:38)
[2019-03-26] MEDS: Lantus Insulin SQ SCH ×2 (03:39→09:18)
[2019-03-26] MEDS: NovoLOG Insulin SQ PRN ×4 (03:39→09:59)
[2019-03-26] MEDS: Zosyn 3.375GM/100 Ml D5W 3.375 GM/100 ML IVPB IV SCH ×2 (05:47→11:50)
[2019-03-26 06:22] LABS: BASOPHIL % 0.1 % (0.0-0.4); Basophil (Absolute #) 0.01 (0-0.4); Eosinophil % 0.1 % (0.00-5.0); Eosinophil (Absolute #) 0.01 (0-0.5); Granulocyte Absolute (ANC) 13.93 (1.4-6.9); Granulocytes % 86.7 % (36.0-66.0); Hematocrit 38.1 % (42-50); Hemoglobin 12.8 gm/dl (12.5-18.0); Lymphocytes % 8.1 % (24.0-44.0); Mean Cell Volume 89.6 fl (78-100); Mean Corpuscular Hemoglobin 30.1 pg (26-32); Mean Corpuscular Hgb Concent. 33.6 g/dl (32-36); Mean Platelet Volume 11.5 fl (6-9.5); Platelet Count 234 K/mm3 (150-450); Red Blood Count 4.25 M/mm3 (4.1-5.6); Red Cell Distribution Width 14.2 % (11.5-14.0); White Blood Count 16.1 K/mm3 (4.0-10.5)
[2019-03-26 06:29] LABS: ALBUMIN 3.2 g/dL (3.5-5.0); ALKALINE PHOSPHATASE 66 U/L (38-126); ANION GAP 18.2 MEQ/L (5-15); BLOOD UREA NITROGEN 24 mg/dL (9-20); CHLORIDE 111 mmol/L (98-107); Calcium 8.1 mg/dL (8.4-10.2); Carbon Dioxide 17 mmol/L (22-30); Creatinine 1 0.89 mg/dL (0.66-1.25); Glucose 284 mg/dL (74-106); Potassium 4.6 mmol/L (3.5-5.1); SGOT/AST 22 U/L (17-59); SGPT/ALT 14 U/L (0-50); SODIUM 142 mmol/L (137-145); Total Protein 5.8 g/dL (6.3-8.2)
[2019-03-26 07:16] LABS: A-aADO2 64; ABG HEMOGLOBIN 12.1; ABG POTASSIUM 4.2 (3.5-5.1); ABG SITE LEFT BRACHIAL; ARTERIAL BLD GAS O2 SATURATION 98.6 % (95-100); ARTERIAL BLOOD GAS BASE EXCESS -4.9 (-2.0-2.0); ARTERIAL BLOOD GAS FIO2 28 %; ARTERIAL BLOOD GAS PCO2 34 mmHg (35-45); ARTERIAL BLOOD GAS PO2 93 mmHg (75-100); ARTERIAL BLOOD GAS pH 7.37 (7.35-7.45); CARBOXYHEMOGLOBIN 1.5 % THgb (0.0-6.9); HCO3- 19.7 (22-28); HGB O2 SAT 96.1 g/dF (94-100); paO2 pAO1 0.59
[2019-03-26 07:23] VITALS: O2SAT 98
[2019-03-26] MEDS ORDERED: PROTONIX 40 MG IV IV SCH (10:00)
[2019-03-26] MEDS ORDERED: ENOXAPARIN SODIUM SQ SCH (10:00)
[2019-03-26 11:20] LABS: ANION GAP 14.2 MEQ/L (5-15); BLOOD UREA NITROGEN 22 mg/dL (9-20); CHLORIDE 111 mmol/L (98-107); Calcium 8.1 mg/dL (8.4-10.2); Carbon Dioxide 21 mmol/L (22-30); Creatinine 1 0.88 mg/dL (0.66-1.25); Glucose 187 mg/dL (74-106); Potassium 4.3 mmol/L (3.5-5.1); SODIUM 142 mmol/L (137-145)
[2019-03-26 12:18] VITALS: BP 97/50; PULSE 78
[2019-03-26] MEDS: TYLENOL EXTRA STRENGTH 500 MG PO PRN (12:34)
[2019-03-26 13:43] LABS: ANION GAP 12.9 MEQ/L (5-15); BLOOD UREA NITROGEN 19 mg/dL (9-20); CHLORIDE 113 mmol/L (98-107); Carbon Dioxide 20 mmol/L (22-30); Creatinine 1 0.77 mg/dL (0.66-1.25); Glucose 103 mg/dL (74-106); Potassium 4.6 mmol/L (3.5-5.1); SODIUM 141 mmol/L (137-145)
--- NOTE | 2019-03-26 15:33 | PCM.SSS ---
History of Present Illness - Chief Complaint Chief Complaint: c/o severe weakness, nausea for 2-3 days History of Present Illness: is a 58 year old male that presented to the ED with chest discomfort and nausea and vomiting. Pt stated, he went camping and he forgot to inject his Insulin. Today when he checked his BG the glucometer showed "high ". His gave him 50iu of Novolog SQ. Pt complains of F/C, N/V and abdominal pain. Pt has non reproducable chest discomfort on the L. No dysuria , frequency and urgency. - Review of Systems Constitutional: Fatigue, Lethargy, Malaise, Weakness, No Fever, No Chills Eyes: No Symptoms Ears, Nose, & Throat: No Symptoms Respiratory: No Cough, No Short Of Breath Cardiac: Chest Pain, No Edema, No Syncope Abdominal/Gastrointestinal: Abdominal Pain, Nausea, Vomiting, No Diarrhea Genitourinary Symptoms: No Dysuria Musculoskeletal: No Back Pain, No Neck Pain Skin: No Rash Neurological: No Dizziness, No Focal Weakness, No Sensory Changes Psychological: No Symptoms Endocrine: No Symptoms Hematologic/Lymphatic: No Symptoms Immunological/Allergic: No Symptoms Medications & Allergies Home Medications: Home Medication List Insulin Aspart [NovoLOG Insulin] 15 units SQ UD 05/29/16 [History Confirmed ] Atorvastatin Calcium [Lipitor 20MG Tablet] 20 mg PO QAM 11/12/16 [History Confirmed 03/25/19] Loratadine 10 mg [Claritin 10 mg] 10 mg PO QAM 01/12/18 [History Confirmed 03/25/19] Fluticasone Propionate [Flonase NASAL] 16 gm NS DAILY 03/25/19 [History Confirmed 03/25/19] Gabapentin 1,200 mg PO HS 03/25/19 [History Confirmed 03/25/19] Gabapentin 600 mg PO TIDWM 03/25/19 [History Confirmed 03/25/19] Insulin Glargine [Lantus Insulin] 50 units SQ QAM 03/25/19 [History Confirmed 03/25/19] Cephalexin Mh 500 mg [Keflex 500 mg] 500 mg PO QID #20 capsule 03/26/19 [Rx] Allergies/Adverse Reactions: Allergies Allergy/AdvReac Type Severity Reaction Status Date / Time codeine AdvReac Severe Vomiting Verified 03/25/19 13:04 hydrocodone bitartrate AdvReac Severe Vomiting Verified 03/25/19 13:04 [From Vicodin] acetaminophen AdvReac Verified 03/25/19 13:04 [From Darvocet-N 100] propoxyphene AdvReac Verified 03/25/19 13:04 [From Darvocet-N 100] - Past Medical History Past Medical History: Yes Neurological History: No Pertinent History ENT History: No Pertinent History Cardiac History: High Cholesterol Respiratory History: Pneumonia Endocrine Medical History: Diabetes Type II Musculoskelatal History: No Pertinent History GI Medical History: Other History: No Pertinent History Pyscho-Social History: No Pertinent History Male Reproductive Disorders: No Pertinent History Comment: FX L LEG AND FOOT subsequent infection. diarrhea x3 weeks, was hospitalized for gi sx - Past Surgical History Past Surgical History: Yes Neuro Surgical History: No Pertinent History Cardiac History: No Pertinent History Respiratory Surgery: No Pertinent History GI Surgical History: Cholecystectomy, Hernia Repair Genitourinary Surgical Hx: No Pertinent History Musculskeletal Surgical Hx: Orthopedic Surgery Male Surgical History: No Pertinent History Other Surgical History: right femur fixed at age 15. left foot broke at age 20. left leg and foot surgery ,,I&D of left foot - Social History Smoking Status: Never smoker Exposure to second hand smoke: Yes Alcohol: Rarely Drug Use: none - Physical Exam Vital Signs: Vital Signs - 24 hr Temp Pulse Resp BP Pulse Ox 03/26/19 12:17 97.6 F 78 20 97/50 98 03/26/19 12:00 78 03/26/19 08:00 84 03/26/19 07:21 97.8 F 94 H 20 99/67 98 03/26/19 04:00 97.8 F 95 H 16 115/62 97 03/26/19 00:01 90 03/26/19 00:00 97.7 F 90 21 114/60 98 03/25/19 23:24 100 03/25/19 20:00 98.1 F 97 H 23 118/67 99 03/25/19 17:52 98.7 F 102 H 20 110/73 98 03/25/19 17:18 98.7 F 102 H 20 110/73 98 03/25/19 16:13 98 03/25/19 16:05 109 H 20 104/70 99 Oxygen-Last 24 hours O2 Percentage 2 Liters = 28% O2 Percentage 2 Liters = 28% O2 Percentage 2 Liters = 28% O2 Percentage 2 Liters = 28% O2 Percentage 2 Liters = 28% O2 Percentage 2 Liters = 28% O2 Percentage 2 Liters = 28% O2 Percentage 2 Liters = 28% General Appearance: moderate distress, alert Neurologic Exam: alert, oriented x 3, cooperative, normal mood/affect, nml cerebellar function, nml station & gait, sensation nml, No motor deficits Eye Exam: PERRL/EOMI, eyes nml inspection Ears, Nose, Throat Exam: normal ENT inspection, TMs normal, pharynx normal, moist mucous membranes Neck Exam: normal inspection, non-tender, supple, full range of motion Respiratory Exam: normal breath sounds, lungs clear, No respiratory distress Cardiovascular Exam: regular rate/rhythm, normal heart sounds, normal peripheral pulses Gastrointestinal/Abdomen Exam: soft, normal bowel sounds, No tenderness, No mass Back Exam: normal inspection, normal range of motion, No CVA tenderness, No vertebral tenderness Extremity Exam: normal inspection, normal range of motion, pelvis stable Skin Exam: normal color, warm, dry, No rash Lymphatic Exam: No adenopathy Results - Labs Lab/Micro Results: Accuchecks Date 03/26/19 Date 03/26/19 Date 03/26/19 Date 03/26/19 Time 14:10 Time 12:00 Time 10:00 Time 07:45 Accucheck Value: 148 Accucheck Value: 111 Accucheck Value: 48 Accucheck Value: 257 Accucheck Value: 280 Accucheck Value: 338 Accucheck Value: 263 Accucheck Value: 174 Accucheck Value: 131 Accucheck Value: 150 Accucheck Value: 177 Accucheck Value: 208 Accucheck Value: 247 Accucheck Value: 345 Lab Results-Last 24 Hours 03/25/19 03/25/19 03/25/19 Range/Units 16:25 16:25 17:30 WBC (4.0-10.5) K/mm3 RBC (4.1-5.6) M/mm3 Hgb (12.5-18.0) gm/dl Hct (42-50) % MCV (78-100) fl MCH (26-32) pg MCHC (32-36) g/dl RDW (11.5-14.0) % Plt Count (150-450) K/mm3 MPV (6-9.5) fl Gran % (36.0-66.0) % Eos # (Auto) (0-0.5) Absolute Lymphs (auto) (1.0-4.6) Absolute Monos (auto) (0.0-1.3) Lymphocytes % (24.0-44.0) % Monocytes % (0.0-12.0) % Eosinophils % (0.00-5.0) % Basophils % (0.0-0.4) % Absolute Granulocytes (1.4-6.9) Basophils # (0-0.4) Puncture Site pCO2 (35-45) mmHg pO2 (75-100) mmHg Base Excess (-2.0-2.0) O2 Saturation (94-100) g/dF ABG pH (7.35-7.45) ABG HCO3 (22-28) ABG O2 Sat (Measured) (95-100) % Tone Test A-a Gradient a/A Ratio Hemoglobin Carboxyhemoglobin (0.0-6.9) % THgb Methemoglobin (1.4-1.5) % Temperature C POC O2 Flow Rate % Sodium 143 (137-145) mmol/L Potassium 4.5 (3.5-5.1) mmol/L Chloride 107 (98-107) mmol/L Carbon Dioxide 13 L* (22-30) mmol/L Anion Gap 28.1 H (5-15) MEQ/L BUN 33 H (9-20) mg/dL Creatinine 1.27 H (0.66-1.25) mg/dL Estimated GFR > 60.0 ML/MIN Glucose 375 H (74-106) mg/dL Hemoglobin A1c 10.56 H (4.5-6.0) % Lactic Acid (0.4-2.0) Calcium 9.2 (8.4-10.2) mg/dL Total Bilirubin (0.2-1.3) mg/dL AST (17-59) U/L ALT (0-50) U/L Alkaline Phosphatase (38-126) U/L Troponin I < 0.012 (0.000-0.034) ng/mL Serum Total Protein (6.3-8.2) g/dL Albumin (3.5-5.0) g/dL 03/25/19 03/25/19 03/25/19 Range/Units 19:17 19:41 20:25 WBC (4.0-10.5) K/mm3 RBC (4.1-5.6) M/mm3 Hgb (12.5-18.0) gm/dl Hct (42-50) % MCV (78-100) fl MCH (26-32) pg MCHC (32-36) g/dl RDW (11.5-14.0) % Plt Count (150-450) K/mm3 MPV (6-9.5) fl Gran % (36.0-66.0) % Eos # (Auto) (0-0.5) Absolute Lymphs (auto) (1.0-4.6) Absolute Monos (auto) (0.0-1.3) Lymphocytes % (24.0-44.0) % Monocytes % (0.0-12.0) % Eosinophils % (0.00-5.0) % Basophils % (0.0-0.4) % Absolute Granulocytes (1.4-6.9) Basophils # (0-0.4) Puncture Site pCO2 (35-45) mmHg pO2 (75-100) mmHg Base Excess (-2.0-2.0) O2 Saturation (94-100) g/dF ABG pH (7.35-7.45) ABG HCO3 (22-28) ABG O2 Sat (Measured) (95-100) % Tone Test A-a Gradient a/A Ratio Hemoglobin Carboxyhemoglobin (0.0-6.9) % THgb Methemoglobin (1.4-1.5) % Temperature C POC O2 Flow Rate % Sodium 143 (137-145) mmol/L Potassium 3.9 (3.5-5.1) mmol/L Chloride 111 H (98-107) mmol/L Carbon Dioxide 22 (22-30) mmol/L Anion Gap 14.1 (5-15) MEQ/L BUN 28 H (9-20) mg/dL Creatinine 0.97 (0.66-1.25) mg/dL Estimated GFR > 60.0 ML/MIN Glucose 168 H (74-106) mg/dL Hemoglobin A1c (4.5-6.0) % Lactic Acid 1.9 (0.4-2.0) Calcium 8.8 (8.4-10.2) mg/dL Total Bilirubin (0.2-1.3) mg/dL AST (17-59) U/L ALT (0-50) U/L Alkaline Phosphatase (38-126) U/L Troponin I < 0.012 (0.000-0.034) ng/mL Serum Total Protein (6.3-8.2) g/dL Albumin (3.5-5.0) g/dL 03/25/19 03/25/19 03/26/19 Range/Units 20:38 21:58 01:05 WBC (4.0-10.5) K/mm3 RBC (4.1-5.6) M/mm3 Hgb (12.5-18.0) gm/dl Hct (42-50) % MCV (78-100) fl MCH (26-32) pg MCHC (32-36) g/dl RDW (11.5-14.0) % Plt Count (150-450) K/mm3 MPV (6-9.5) fl Gran % (36.0-66.0) % Eos # (Auto) (0-0.5) Absolute Lymphs (auto) (1.0-4.6) Absolute Monos (auto) (0.0-1.3) Lymphocytes % (24.0-44.0) % Monocytes % (0.0-12.0) % Eosinophils % (0.00-5.0) % Basophils % (0.0-0.4) % Absolute Granulocytes (1.4-6.9) Basophils # (0-0.4) Puncture Site LEFT BRACHIAL pCO2 28 L (35-45) mmHg pO2 95 (75-100) mmHg Base Excess 0.3 (-2.0-2.0) O2 Saturation 94.8 (94-100) g/dF ABG pH 7.51 H (7.35-7.45) ABG HCO3 22.3 (22-28) ABG O2 Sat (Measured) 98.8 (95-100) % Tone Test YES A-a Gradient 20 a/A Ratio 0.83 Hemoglobin 12.6 Carboxyhemoglobin 2.9 (0.0-6.9) % THgb Methemoglobin 1.1 L (1.4-1.5) % Temperature 37.0 C POC O2 Flow Rate 21 % Sodium 142 (137-145) mmol/L Potassium 3.8 4.5 (3.5-5.1) mmol/L Chloride 109 H (98-107) mmol/L Carbon Dioxide 20 L (22-30) mmol/L Anion Gap 18.1 H (5-15) MEQ/L BUN 26 H (9-20) mg/dL Creatinine 0.96 (0.66-1.25) mg/dL Estimated GFR > 60.0 ML/MIN Glucose 232 H (74-106) mg/dL Hemoglobin A1c (4.5-6.0) % Lactic Acid (0.4-2.0) Calcium 8.1 L (8.4-10.2) mg/dL Total Bilirubin (0.2-1.3) mg/dL AST (17-59) U/L ALT (0-50) U/L Alkaline Phosphatase (38-126) U/L Troponin I < 0.012 (0.000-0.034) ng/mL Serum Total Protein (6.3-8.2) g/dL Albumin (3.5-5.0) g/dL 03/26/19 03/26/19 03/26/19 Range/Units 01:30 04:00 06:06 WBC 16.1 H (4.0-10.5) K/mm3 RBC 4.25 (4.1-5.6) M/mm3 Hgb 12.8 (12.5-18.0) gm/dl Hct 38.1 L (42-50) % MCV 89.6 (78-100) fl MCH 30.1 (26-32) pg MCHC 33.6 (32-36) g/dl RDW 14.2 H (11.5-14.0) % Plt Count 234 D (150-450) K/mm3 MPV 11.5 H (6-9.5) fl Gran % 86.7 H (36.0-66.0) % Eos # (Auto) 0.01 (0-0.5) Absolute Lymphs (auto) 1.30 (1.0-4.6) Absolute Monos (auto) 0.80 (0.0-1.3) Lymphocytes % 8.1 L (24.0-44.0) % Monocytes % 5.0 (0.0-12.0) % Eosinophils % 0.1 (0.00-5.0) % Basophils % 0.1 (0.0-0.4) % Absolute Granulocytes 13.93 H (1.4-6.9) Basophils # 0.01 (0-0.4) Puncture Site pCO2 (35-45) mmHg pO2 (75-100) mmHg Base Excess (-2.0-2.0) O2 Saturation (94-100) g/dF ABG pH (7.35-7.45) ABG HCO3 (22-28) ABG O2 Sat (Measured) (95-100) % Tone Test A-a Gradient a/A Ratio Hemoglobin Carboxyhemoglobin (0.0-6.9) % THgb Methemoglobin (1.4-1.5) % Temperature C POC O2 Flow Rate % Sodium (137-145) mmol/L Potassium (3.5-5.1) mmol/L Chloride (98-107) mmol/L Carbon Dioxide (22-30) mmol/L Anion Gap (5-15) MEQ/L BUN (9-20) mg/dL Creatinine (0.66-1.25) mg/dL Estimated GFR ML/MIN Glucose (74-106) mg/dL Hemoglobin A1c (4.5-6.0) % Lactic Acid 0.8 (0.4-2.0) Calcium (8.4-10.2) mg/dL Total Bilirubin (0.2-1.3) mg/dL AST (17-59) U/L ALT (0-50) U/L Alkaline Phosphatase (38-126) U/L Troponin I < 0.012 (0.000-0.034) ng/mL Serum Total Protein (6.3-8.2) g/dL Albumin (3.5-5.0) g/dL 03/26/19 03/26/19 03/26/19 Range/Units 06:06 07:00 08:25 WBC (4.0-10.5) K/mm3 RBC (4.1-5.6) M/mm3 Hgb (12.5-18.0) gm/dl Hct (42-50) % MCV (78-100) fl MCH (26-32) pg MCHC (32-36) g/dl RDW (11.5-14.0) % Plt Count (150-450) K/mm3 MPV (6-9.5) fl Gran % (36.0-66.0) % Eos # (Auto) (0-0.5) Absolute Lymphs (auto) (1.0-4.6) Absolute Monos (auto) (0.0-1.3) Lymphocytes % (24.0-44.0) % Monocytes % (0.0-12.0) % Eosinophils % (0.00-5.0) % Basophils % (0.0-0.4) % Absolute Granulocytes (1.4-6.9) Basophils # (0-0.4) Puncture Site LEFT BRACHIAL pCO2 34 L (35-45) mmHg pO2 93 (75-100) mmHg Base Excess -4.9 L (-2.0-2.0) O2 Saturation 96.1 (94-100) g/dF ABG pH 7.37 (7.35-7.45) ABG HCO3 19.7 L (22-28) ABG O2 Sat (Measured) 98.6 (95-100) % Tone Test NOT APPLICABLE A-a Gradient 64 a/A Ratio 0.59 Hemoglobin 12.1 Carboxyhemoglobin 1.5 (0.0-6.9) % THgb Methemoglobin 1.0 L (1.4-1.5) % Temperature 37.0 C POC O2 Flow Rate 28 % Sodium 142 142 (137-145) mmol/L Potassium 4.6 4.2 4.3 (3.5-5.1) mmol/L Chloride 111 H 111 H (98-107) mmol/L Carbon Dioxide 17 L 21 L (22-30) mmol/L Anion Gap 18.2 H 14.2 (5-15) MEQ/L BUN 24 H 22 H (9-20) mg/dL Creatinine 0.89 0.88 (0.66-1.25) mg/dL Estimated GFR > 60.0 > 60.0 ML/MIN Glucose 284 H 187 H (74-106) mg/dL Hemoglobin A1c (4.5-6.0) % Lactic Acid (0.4-2.0) Calcium 8.1 L 8.1 L (8.4-10.2) mg/dL Total Bilirubin 1.30 (0.2-1.3) mg/dL AST 22 (17-59) U/L ALT 14 (0-50) U/L Alkaline Phosphatase 66 (38-126) U/L Troponin I (0.000-0.034) ng/mL Serum Total Protein 5.8 L (6.3-8.2) g/dL Albumin 3.2 L (3.5-5.0) g/dL 03/26/19 Range/Units 12:23 WBC (4.0-10.5) K/mm3 RBC (4.1-5.6) M/mm3 Hgb (12.5-18.0) gm/dl Hct (42-50) % MCV (78-100) fl MCH (26-32) pg MCHC (32-36) g/dl RDW (11.5-14.0) % Plt Count (150-450) K/mm3 MPV (6-9.5) fl Gran % (36.0-66.0) % Eos # (Auto) (0-0.5) Absolute Lymphs (auto) (1.0-4.6) Absolute Monos (auto) (0.0-1.3) Lymphocytes % (24.0-44.0) % Monocytes % (0.0-12.0) % Eosinophils % (0.00-5.0) % Basophils % (0.0-0.4) % Absolute Granulocytes (1.4-6.9) Basophils # (0-0.4) Puncture Site pCO2 (35-45) mmHg pO2 (75-100) mmHg Base Excess (-2.0-2.0) O2 Saturation (94-100) g/dF ABG pH (7.35-7.45) ABG HCO3 (22-28) ABG O2 Sat (Measured) (95-100) % Tone Test A-a Gradient a/A Ratio Hemoglobin Carboxyhemoglobin (0.0-6.9) % THgb Methemoglobin (1.4-1.5) % Temperature C POC O2 Flow Rate % Sodium 141 (137-145) mmol/L Potassium 4.6 (3.5-5.1) mmol/L Chloride 113 H (98-107) mmol/L Carbon Dioxide 20 L (22-30) mmol/L Anion Gap 12.9 (5-15) MEQ/L BUN 19 (9-20) mg/dL Creatinine 0.77 (0.66-1.25) mg/dL Estimated GFR > 60.0 ML/MIN Glucose 103 (74-106) mg/dL Hemoglobin A1c (4.5-6.0) % Lactic Acid (0.4-2.0) Calcium 8.0 L (8.4-10.2) mg/dL Total Bilirubin (0.2-1.3) mg/dL AST (17-59) U/L ALT (0-50) U/L Alkaline Phosphatase (38-126) U/L Troponin I (0.000-0.034) ng/mL Serum Total Protein (6.3-8.2) g/dL Albumin (3.5-5.0) g/dL Accuchecks Date 03/26/19 Date 03/26/19 Date 03/26/19 Date 03/26/19 Time 14:10 Time 12:00 Time 10:00 Time 07:45 Accucheck Value: 148 Accucheck Value: 111 Accucheck Value: 48 Accucheck Value: 257 Accucheck Value: 280 Accucheck Value: 338 Accucheck Value: 263 Accucheck Value: 174 Accucheck Value: 131 Accucheck Value: 150 Accucheck Value: 177 Accucheck Value: 208 Accucheck Value: 247 Accucheck Value: 345 - Radiology Impressions Radiology Exams & Impressions: Radiology Procedures Category Date Time Status CHEST 1 VIEW (PORTABLE) Stat Exams 03/25/19 12:46 Completed - Other Procedures and Tests Respiratory Therapy 03/25/19 16:14 Oxygen Nasal Cannula 2 lpm Assessment/Plan (1) DKA (diabetic ketoacidoses) Current Visit: Yes Status: Acute Qualifiers: Diabetes mellitus type: type 2 Diabetes mellitus complication detail: without coma Qualified Code(s): E11.10 - Type 2 diabetes mellitus with ketoacidosis without coma Code(s): E11.10 - TYPE 2 DIABETES MELLITUS WITH KETOACIDOSIS WITHOUT COMA (2) COPD (chronic obstructive pulmonary disease) Current Visit: Yes Status: Chronic Qualifiers: COPD type: chronic bronchitis Hospital Summary - Hospital Course Hospital Course: Chief Complaint Diagnosis DKA Allergies Allergy/AdvReac Type Severity Reaction Status Date / Time codeine AdvReac Severe Vomiting Verified 03/25/19 13:04 hydrocodone bitartrate AdvReac Severe Vomiting Verified 03/25/19 13:04 [From Vicodin] acetaminophen AdvReac Verified 03/25/19 13:04 [From Darvocet-N 100] propoxyphene AdvReac Verified 03/25/19 13:04 [From Darvocet-N 100] Vital Signs (Last 24 hours) Temp Pulse Resp BP Pulse Ox 03/26/19 12:17 97.6 F 78 20 97/50 98 03/26/19 12:00 78 03/26/19 08:00 84 03/26/19 07:21 97.8 F 94 H 20 99/67 98 03/26/19 04:00 97.8 F 95 H 16 115/62 97 03/26/19 00:01 90 03/26/19 00:00 97.7 F 90 21 114/60 98 03/25/19 23:24 100 03/25/19 20:00 98.1 F 97 H 23 118/67 99 03/25/19 17:52 98.7 F 102 H 20 110/73 98 03/25/19 17:18 98.7 F 102 H 20 110/73 98 03/25/19 16:13 98 03/25/19 16:05 109 H 20 104/70 99 Home Medications Medication Instructions Recorded Confirmed Last Taken Type Fluticasone Propionate [Flonase 16 gm NS DAILY 03/25/19 03/25/19 03/24/19 History NASAL] Gabapentin 1,200 mg PO HS 03/25/19 03/25/19 03/24/19 History Gabapentin 600 mg PO TIDWM 03/25/19 03/25/19 03/24/19 History Insulin Glargine [Lantus 50 units SQ QAM 03/25/19 03/25/19 03/24/19 History Insulin] Current Medications Generic Name Dose Route Start Last Admin Trade Name Freq PRN Reason Stop Dose Admin Acetaminophen 1,000 mg 03/25/19 20:28 03/26/19 12:34 Tylenol Extra Strength 500 Mg PO 04/24/19 20:27 1,000 mg Q4H PRN PRN Administration HEADACHE Enoxaparin Sodium 40 mg 03/26/19 10:00 03/26/19 09:50 Enoxaparin Sodium SQ 04/25/19 09:59 40 mg DAILY AURA Administration Fluticasone Propionate 16 gm 03/27/19 10:00 Flonase Nasal NS 04/26/19 09:59 DAILY AURA Insulin Human Regular 100 101 mls @ 7.93 mls/hr 03/25/19 15:40 03/25/19 16:12 units/ Sodium Chloride IV 04/24/19 15:39 0.1 units/kg/hr .[id number] PRN 7.93 mls/hr DKA/HYPERGYCEMIA Administration Protocol 0.1 UNITS/KG/HR Piperacillin Sod/Tazobactam Sod 3.375 gm in 100 mls @ 200 mls/hr 03/25/19 18: 00 03/26/19 11:50 Zosyn 3.375gm/100 Ml D5w IV 04/24/19 17:59 200 mls/hr Q6HT AURA Administration Potassium Chloride/Sodium Chloride 1,000 mls @ 200 mls/hr 03/25/19 20:00 07/06 01:37 Sodium Chloride 0.9% W/ 20 Meq Kcl/Liter IV 04/24/19 19:59 200 mls/hr .Q5H AURA Administration Insulin Aspart 0 unit 03/26/19 03:32 03/26/19 09:59 Novolog Insulin SQ 04/25/19 03:31 3 unit UD PRN Administration HYPERGLYCEMIA Insulin Glargine 50 unit 03/26/19 03:30 03/26/19 09:18 Lantus Insulin SQ 04/25/19 03:29 Not Given QAM AURA Loratadine 10 mg 03/27/19 10:00 Claritin 10 Mg PO 04/26/19 09:59 QAM AURA Morphine Sulfate 1 mg 03/25/19 20:27 03/26/19 12:34 Morphine Sulfate 2 Mg Inj IV 03/30/19 20:26 1 mg Q2H PRN PRN Administration PAIN Non-Formulary Medication 600 mg 03/26/19 17:00 Gabapentin [Gabapentin] PO 04/25/19 16:59 TIDWM AURA Non-Formulary Medication 1,200 mg 03/26/19 22:00 Gabapentin [Gabapentin] PO 04/25/19 21:59 HS AURA Ondansetron HCl 4 mg 03/25/19 16:14 03/26/19 12:07 Zofran 4 Mg/2 Ml Vial IV 04/24/19 16:13 4 mg Q6H PRN PRN Administration NAUSEA/VOMITING Pantoprazole Sodium 40 mg 03/26/19 10:00 03/26/19 09:50 Protonix 40 Mg Iv IV 04/25/19 09:59 40 mg Q24H10 AURA Administration Simvastatin 20 mg 03/27/19 10:00 Zocor 20mg PO 04/26/19 09:59 QAM AURA Discontinued Medications Generic Name Dose Route Start Last Admin Trade Name Freq PRN Reason Stop Dose Admin Al Hydrox/Mg Hydrox/Simethicone Confirm 03/25/19 13:52 Maalox Es 30 Ml Unit Dose Administered 03/25/19 13:53 Dose 30 ml .ROUTE .STK-MED ONE Aspirin 324 mg 03/25/19 12:45 03/25/19 13:26 Baby Aspirin 81 Mg Chew PO 03/25/19 12:46 324 mg STAT ONE Administration Aspirin Confirm 03/25/19 12:50 Baby Aspirin 81 Mg Chew Administered 03/25/19 12:51 Dose 324 mg .ROUTE .STK-MED ONE Gabapentin 1,200 mg 03/25/19 22:00 03/25/19 22:32 Neurontin 400 Mg PO 03/25/19 22:01 1,200 mg ONCE ONE Administration Sodium Chloride Confirm 03/25/19 12:41 Sodium Chloride 0.9% 1000 Ml Administered 03/25/19 12:42 Dose 1,000 mls @ ud .ROUTE .STK-MED ONE Sodium Chloride 1,000 mls @ 999 mls/hr 03/25/19 12:45 03/25/19 15:43 Sodium Chloride 0.9% 1000 Ml IV 03/25/19 13:45 Infused .Q1H1M STA Infusion Sodium Chloride Confirm 03/25/19 13:18 Sodium Chloride 0.9% 1000 Ml Administered 03/25/19 13:19 Dose 1,000 mls @ ud .ROUTE .STK-MED ONE Sodium Chloride 1,000 mls @ 999 mls/hr 03/25/19 13:19 03/25/19 15:42 Sodium Chloride 0.9% 1000 Ml IV 03/25/19 14:19 Infused .Q1H1M STA Infusion Sodium Bicarbonate 150 meq/ 1,150 mls @ 200 mls/hr 03/25/19 13:30 03/25/19 13 :36 Sodium Chloride IV 03/25/19 17:00 200 ml/hr .Q5H45M AURA 200 mls/hr Administration Vancomycin HCl 1 gm in 250 mls @ 167 mls/hr 03/25/19 13:39 03/25/19 14:56 Vancomycin 1gm/ Ns 250ml IV 03/25/19 15:08 167 mls/hr STAT ONE Administration Piperacillin Sod/Tazobactam Sod 3.375 gm in 100 mls @ 200 mls/hr 03/25/19 13: 38 03/25/19 15:42 Zosyn 3.375gm/100 Ml D5w IV 03/25/19 14:07 Infused STAT STA Infusion Piperacillin Sod/Tazobactam Sod Confirm 03/25/19 13:57 Zosyn 3.375gm/100 Ml D5w Administered 03/25/19 13:58 Dose 3.375 gm in 100 mls @ ud IV .STK-MED ONE Sodium Chloride 1,000 mls @ 200 mls/hr 03/25/19 16:15 03/25/19 16:34 Sodium Chloride 0.9% 1000 Ml IV 04/24/19 16:14 100 mls/hr .Q5H AURA Administration Sodium Chloride Confirm 03/25/19 16:33 Sodium Chloride 0.9% 1000 Ml Administered 03/25/19 16:34 Dose 1,000 mls @ ud .ROUTE .STK-MED ONE Insulin Glargine Confirm 03/26/19 03:38 Lantus Insulin Administered 03/26/19 03:39 Dose 50 unit .ROUTE .STK-MED ONE Lidocaine HCl Confirm 03/25/19 13:51 Xylocaine Hcl Viscous * Administered 03/25/19 13:52 Dose 15 ml .ROUTE .STK-MED ONE Magnesium Hydroxide 45 ml 03/25/19 12:48 03/25/19 13:53 Gi Cocktail 45 Ml (Maalox/Lidocaine) PO 03/25/19 12:49 45 ml STAT ONE Administration Nitroglycerin 1 gm 03/25/19 12:45 03/25/19 13:40 Nitro-Bid 2% Ud Packets TOP 03/25/19 12:46 Not Given STAT ONE Nitroglycerin Confirm 03/25/19 12:50 Nitro-Bid 2% Ud Packets Administered 03/25/19 12:51 Dose 1 gm .ROUTE .STK-MED ONE Ondansetron HCl 4 mg 03/25/19 12:47 03/25/19 12:53 Zofran 4 Mg/2 Ml Vial IV 03/25/19 12:48 4 mg STAT ONE Administration Ondansetron HCl Confirm 03/25/19 12:49 Zofran 4 Mg/2 Ml Vial Administered 03/25/19 12:50 Dose 4 mg .ROUTE .STK-MED ONE Ondansetron HCl 4 mg 03/25/19 16:55 03/25/19 16:57 Zofran 4 Mg/2 Ml Vial IV 03/25/19 16:56 4 mg STAT ONE Administration Intake & Output (Last 24 hours) 03/24/19 03/25/19 03/26/19 03/27/19 11:59 11:59 11:59 11:59 Intake Total 5358 Output Total 1700 Balance 3658 Weight 80.5 kg Microbiology Results (Last 24 hours) 03/25/19 13:44 Blood Blood Culture Gram Stain - Pending 03/25/19 13:44 Blood Blood Culture - Pending 03/25/19 13:39 Blood Blood Culture Gram Stain - Pending 03/25/19 13:39 Blood Blood Culture - Pending Laboratory Results (Last 24 hours) 03/26/19 03/26/19 03/26/19 12:23 08:25 07:00 WBC RBC Hgb Hct MCV MCH MCHC RDW Plt Count MPV Gran % Eos # (Auto) Absolute Lymphs (auto) Absolute Monos (auto) Lymphocytes % Monocytes % Eosinophils % Basophils % Absolute Granulocytes Basophils # Puncture Site LEFT BRACHIAL pCO2 34 L pO2 93 Base Excess -4.9 L O2 Saturation 96.1 ABG pH 7.37 ABG HCO3 19.7 L ABG O2 Sat (Measured) 98.6 Tone Test NOT APPLICABLE A-a Gradient 64 a/A Ratio 0.59 Hemoglobin 12.1 Carboxyhemoglobin 1.5 Methemoglobin 1.0 L Temperature 37.0 POC O2 Flow Rate 28 Sodium 141 142 Potassium 4.6 4.3 4.2 Chloride 113 H 111 H Carbon Dioxide 20 L 21 L Anion Gap 12.9 14.2 BUN 19 22 H Creatinine 0.77 0.88 Estimated GFR > 60.0 > 60.0 Glucose 103 187 H Hemoglobin A1c Lactic Acid Calcium 8.0 L 8.1 L Total Bilirubin AST ALT Alkaline Phosphatase Troponin I Serum Total Protein Albumin 03/26/19 03/26/19 03/26/19 06:06 06:06 04:00 WBC 16.1 H RBC 4.25 Hgb 12.8 Hct 38.1 L MCV 89.6 MCH 30.1 MCHC 33.6 RDW 14.2 H Plt Count 234 D MPV 11.5 H Gran % 86.7 H Eos # (Auto) 0.01 Absolute Lymphs (auto) 1.30 Absolute Monos (auto) 0.80 Lymphocytes % 8.1 L Monocytes % 5.0 Eosinophils % 0.1 Basophils % 0.1 Absolute Granulocytes 13.93 H Basophils # 0.01 Puncture Site pCO2 pO2 Base Excess O2 Saturation ABG pH ABG HCO3 ABG O2 Sat (Measured) Tone Test A-a Gradient a/A Ratio Hemoglobin Carboxyhemoglobin Methemoglobin Temperature POC O2 Flow Rate Sodium 142 Potassium 4.6 Chloride 111 H Carbon Dioxide 17 L Anion Gap 18.2 H BUN 24 H Creatinine 0.89 Estimated GFR > 60.0 Glucose 284 H Hemoglobin A1c Lactic Acid 0.8 Calcium 8.1 L Total Bilirubin 1.30 AST 22 ALT 14 Alkaline Phosphatase 66 Troponin I Serum Total Protein 5.8 L Albumin 3.2 L 03/26/19 03/26/19 03/25/19 01:30 01:05 21:58 WBC RBC Hgb Hct MCV MCH MCHC RDW Plt Count MPV Gran % Eos # (Auto) Absolute Lymphs (auto) Absolute Monos (auto) Lymphocytes % Monocytes % Eosinophils % Basophils % Absolute Granulocytes Basophils # Puncture Site pCO2 pO2 Base Excess O2 Saturation ABG pH ABG HCO3 ABG O2 Sat (Measured) Tone Test A-a Gradient a/A Ratio Hemoglobin Carboxyhemoglobin Methemoglobin Temperature POC O2 Flow Rate Sodium 142 Potassium 4.5 Chloride 109 H Carbon Dioxide 20 L Anion Gap 18.1 H BUN 26 H Creatinine 0.96 Estimated GFR > 60.0 Glucose 232 H Hemoglobin A1c Lactic Acid Calcium 8.1 L Total Bilirubin AST ALT Alkaline Phosphatase Troponin I < 0.012 < 0.012 Serum Total Protein Albumin 03/25/19 03/25/19 03/25/19 20:38 20:25 19:41 WBC RBC Hgb Hct MCV MCH MCHC RDW Plt Count MPV Gran % Eos # (Auto) Absolute Lymphs (auto) Absolute Monos (auto) Lymphocytes % Monocytes % Eosinophils % Basophils % Absolute Granulocytes Basophils # Puncture Site LEFT BRACHIAL pCO2 28 L pO2 95 Base Excess 0.3 O2 Saturation 94.8 ABG pH 7.51 H ABG HCO3 22.3 ABG O2 Sat (Measured) 98.8 Tone Test YES A-a Gradient 20 a/A Ratio 0.83 Hemoglobin 12.6 Carboxyhemoglobin 2.9 Methemoglobin 1.1 L Temperature 37.0 POC O2 Flow Rate 21 Sodium 143 Potassium 3.8 3.9 Chloride 111 H Carbon Dioxide 22 Anion Gap 14.1 BUN 28 H Creatinine 0.97 Estimated GFR > 60.0 Glucose 168 H Hemoglobin A1c Lactic Acid 1.9 Calcium 8.8 Total Bilirubin AST ALT Alkaline Phosphatase Troponin I Serum Total Protein Albumin 03/25/19 03/25/19 03/25/19 19:17 17:30 16:25 WBC RBC Hgb Hct MCV MCH MCHC RDW Plt Count MPV Gran % Eos # (Auto) Absolute Lymphs (auto) Absolute Monos (auto) Lymphocytes % Monocytes % Eosinophils % Basophils % Absolute Granulocytes Basophils # Puncture Site pCO2 pO2 Base Excess O2 Saturation ABG pH ABG HCO3 ABG O2 Sat (Measured) Tone Test A-a Gradient a/A Ratio Hemoglobin Carboxyhemoglobin Methemoglobin Temperature POC O2 Flow Rate Sodium 143 Potassium 4.5 Chloride 107 Carbon Dioxide 13 L* Anion Gap 28.1 H BUN 33 H Creatinine 1.27 H Estimated GFR > 60.0 Glucose 375 H Hemoglobin A1c 10.56 H Lactic Acid Calcium 9.2 Total Bilirubin AST ALT Alkaline Phosphatase Troponin I < 0.012 Serum Total Protein Albumin 03/25/19 16:25 WBC RBC Hgb Hct MCV MCH MCHC RDW Plt Count MPV Gran % Eos # (Auto) Absolute Lymphs (auto) Absolute Monos (auto) Lymphocytes % Monocytes % Eosinophils % Basophils % Absolute Granulocytes Basophils # Puncture Site pCO2 pO2 Base Excess O2 Saturation ABG pH ABG HCO3 ABG O2 Sat (Measured) Tone Test A-a Gradient a/A Ratio Hemoglobin Carboxyhemoglobin Methemoglobin Temperature POC O2 Flow Rate Sodium Potassium Chloride Carbon Dioxide Anion Gap BUN Creatinine Estimated GFR Glucose Hemoglobin A1c Lactic Acid Calcium Total Bilirubin AST ALT Alkaline Phosphatase Troponin I < 0.012 Serum Total Protein Albumin Orders (Last 24 hours) Category Date Time Status Bedrest ROUTINE Activity 03/25/19 16:16 Active Accucheck Q2H Care 03/25/19 16:14 Active Admit as Inpatient ROUTINE Care 03/25/19 16:14 Active Code Status Order ROUTINE Care 03/25/19 16:14 Active IV Care Q1H Care 03/25/19 16:14 Active Miscellaneous Nursing Order ROUTINE Care 03/25/19 19:49 Active Miscellaneous Nursing Order ROUTINE Care 03/25/19 22:18 Active Vital Signs Q4H Care 03/25/19 16:14 Active 1800 Calorie ADA Diet 03/26/19 Breakfast Active Clear Liquid Diet 03/25/19 Dinner Completed Nutritional Admission Screen Diet 03/25/19 18:33 Active ABG [ARTERIAL BLOOD GASES] Stat Lab 03/25/19 20:38 Completed ABG [ARTERIAL BLOOD GASES] Urgent Lab 03/26/19 07:00 Completed BMP Q4H Lab 03/25/19 20:25 Completed BMP Q4H Lab 03/26/19 01:05 Completed BMP Q4H Lab 03/26/19 08:25 Completed BMP Q4H Lab 03/26/19 12:23 Completed BMP Q4H Lab 03/26/19 16:25 Ordered BMP Stat Lab 03/25/19 16:25 Completed CBC W DIFF AM.LAB Lab 03/26/19 06:06 Completed CMP AM.LAB Lab 03/26/19 06:06 Completed HEMOGLOBIN A1C Urgent Lab 03/25/19 17:30 Completed Lactic Acid AM.LAB Lab 03/26/19 04:00 Completed Lactic Acid Stat Lab 03/25/19 19:41 Completed TROPONIN Q3H Lab 03/25/19 16:25 Completed TROPONIN Q3H Lab 03/25/19 19:17 Completed TROPONIN Q3H Lab 03/25/19 21:58 Completed TROPONIN Q3H Lab 03/26/19 01:30 Completed Acetaminophen 500 mg [Tylenol Extra Strength 500 mg* Med 03/25/19 20:28 Active ] 1,000 mg PO Q4H PRN PRN Enoxaparin Sodium [Enoxaparin Sodium] Med 03/26/19 10:00 Active 40 mg SQ DAILY Fluticasone Propionate [Flonase NASAL] Med 03/27/19 10:00 Ordered 16 gm NS DAILY Gabapentin 400 mg [Neurontin 400 MG] Med 03/25/19 22:00 Discontinued 1,200 mg PO ONCE ONE Gabapentin [Gabapentin] Med 03/26/19 22:00 Ordered 1,200 mg PO HS Gabapentin [Gabapentin] Med 03/26/19 17:00 Ordered 600 mg PO TIDWM Insulin Aspart [NovoLOG Insulin] Med 03/26/19 03:32 Active See Dose Instructions SQ UD PRN Insulin Glargine [Lantus Insulin] Med 03/26/19 03:38 Discontinued 50 unit .ROUTE .STK-MED ONE Insulin Glargine [Lantus Insulin] Med 03/26/19 03:30 Active 50 unit SQ QAM Loratadine 10 mg [Claritin 10 mg] Med 03/27/19 10:00 Ordered 10 mg PO QAM Morphine Sulfate 2 mg Inj Med 03/25/19 20:27 Active 1 mg IV Q2H PRN PRN NaCl 0.9% 1000 ml + KCl 20 Meq [Sodium Chloride 0.9% W/ Med 03/25/19 20:00 Active 20 mEq KCl/LITER] 1,000 ml IV 200 mls/hr NaCl 0.9% 1000 ml [Sodium Chloride 0.9% 1000 ML] 1,000 Med 03/25/19 16:33 Discontinued ml .ROUTE UD NaCl 0.9% 1000 ml [Sodium Chloride 0.9% 1000 ML] 1,000 Med 03/25/19 16:15 Discontinued ml IV 200 mls/hr NaCl 0.9% 100Ml [Sodium Chloride 0.9% 100 ML IVPB] 100 Med 03/25/19 15:40 Active ml Insulin Reg Human Rec [Novolin R Insulin (For Drips)* *] 100 units IV 0.1 units/kg/hr Ondansetron HCl 4 mg/2 ml [Zofran 4 MG/2 ML VIAL] Med 03/25/19 16:14 Active 4 mg IV Q6H PRN PRN Ondansetron HCl 4 mg/2 ml [Zofran 4 MG/2 ML VIAL] Med 03/25/19 16:55 Discontinued 4 mg IV STAT ONE Pantoprazole 40 mg [Protonix 40 mg IV] Med 03/26/19 10:00 Active 40 mg IV Q24H10 Piperacillin/Tazobactam Premix [Zosyn 3.375GM/100 Ml Med 03/25/19 18:00 Active D5W] 3.375 gm in 100 ml IV Q6HT Simvastatin 20Mg [Zocor 20Mg] Med 03/27/19 10:00 Active 20 mg PO QAM Oxygen Nasal Cannula 2 lpm RT 03/25/19 16:14 Active Pulse Oximetry .spot check RT 03/25/19 20:50 Active Last Vital Signs Temp 97.6 F 03/26/19 12:17 Pulse 78 03/26/19 12:17 Resp 20 03/26/19 12:17 BP 97/50 03/26/19 12:17 Pulse Ox 98 03/26/19 12:17 Allergies codeine Adverse Reaction (Severe, Verified 03/25/19 13:04) Vomiting hydrocodone bitartrate [From Vicodin] Adverse Reaction (Severe, Verified 13:04) Vomiting acetaminophen [From Darvocet-N 100] Adverse Reaction (Verified 03/25/19 13:04) propoxyphene [From Darvocet-N 100] Adverse Reaction (Verified 03/25/19 13:04) Active Medications Acetaminophen (Tylenol Extra Strength 500 Mg) 1,000 mg PO Q4H PRN PRN PRN Reason: HEADACHE Stop: 04/24/19 20:27 Last Admin: 03/26/19 12:34 Dose: 1,000 mg Enoxaparin Sodium (Enoxaparin Sodium) 40 mg SQ DAILY [facility] Stop: 04/25/19 09:59 Last Admin: 03/26/19 09:50 Dose: 40 mg Fluticasone Propionate (Flonase Nasal) 16 gm NS DAILY [facility] Stop: 04/26/19 09:59 Insulin Human Regular 100 (units/ Sodium Chloride) 101 mls @ 7.93 mls/hr IV .[id number] PRN; Protocol PRN Reason: DKA/HYPERGYCEMIA Stop: 04/24/19 15:39 Last Admin: 03/25/19 16:12 Dose: 0.1 units/kg/hr, 7.93 mls/hr Piperacillin Sod/Tazobactam Sod (Zosyn 3.375gm/100 Ml D5w) 3.375 gm in 100 mls @ 200 mls/hr IV Q6HT [facility] Stop: 04/24/19 17:59 Last Admin: 03/26/19 11:50 Dose: 200 mls/hr Potassium Chloride/Sodium Chloride (Sodium Chloride 0.9% W/ 20 Meq Kcl/Liter) 1 ,000 mls @ 200 mls/hr IV .Q5H [facility] Stop: 04/24/19 19:59 Last Admin: 03/26/19 01:37 Dose: 200 mls/hr Insulin Aspart (Novolog Insulin) 0 unit SQ UD PRN PRN Reason: HYPERGLYCEMIA Stop: 04/25/19 03:31 Last Admin: 03/26/19 09:59 Dose: 3 unit Insulin Glargine (Lantus Insulin) 50 unit SQ QAM [facility] Stop: 04/25/19 03:29 Last Admin: 03/26/19 09:18 Dose: Not Given Loratadine (Claritin 10 Mg) 10 mg PO QAM [facility] Stop: 04/26/19 09:59 Morphine Sulfate (Morphine Sulfate 2 Mg Inj) 1 mg IV Q2H PRN PRN PRN Reason: PAIN Stop: 03/30/19 20:26 Last Admin: 03/26/19 12:34 Dose: 1 mg Non-Formulary Medication (Gabapentin [Gabapentin]) 600 mg PO TIDWM [facility] Stop: 04/25/19 16:59 Non-Formulary Medication (Gabapentin [Gabapentin]) 1,200 mg PO HS [facility] Stop: 04/25/19 21:59 Ondansetron HCl (Zofran 4 Mg/2 Ml Vial) 4 mg IV Q6H PRN PRN PRN Reason: NAUSEA/VOMITING Stop: 04/24/19 16:13 Last Admin: 03/26/19 12:07 Dose: 4 mg Pantoprazole Sodium (Protonix 40 Mg Iv) 40 mg IV Q24H10 [facility] Stop: 04/25/19 09:59 Last Admin: 03/26/19 09:50 Dose: 40 mg Simvastatin (Zocor 20mg) 20 mg PO QAM [facility] Stop: 04/26/19 09:59 Intake & Output 03/26/19 03/27/19 11:59 11:59 Intake Total 5358 Output Total 1700 Balance 3658 Weight 80.5 kg Orders 03/25/19 18:33 Nutritional Admission Screen 03/25/19 19:49 Miscellaneous Nursing Order ROUTINE 03/25/19 20:00 NaCl 0.9% 1000 ml + KCl 20 Meq [Sodium Chloride 0.9% W/ 20 mEq KCl/LITER] 1,000 ml IV 200 mls/hr 03/25/19 20:27 Morphine Sulfate 2 mg Inj 1 mg IV Q2H PRN PRN 03/25/19 20:28 Acetaminophen 500 mg [Tylenol Extra Strength 500 mg] 1,000 mg PO Q4H PRN PRN 03/25/19 20:50 Pulse Oximetry .spot check 03/25/19 22:18 Miscellaneous Nursing Order ROUTINE 03/26/19 03:30 Insulin Glargine [Lantus Insulin] 50 unit SQ QAM 03/26/19 03:32 Insulin Aspart [NovoLOG Insulin] See Dose Instructions SQ UD PRN 03/26/19 16:25 BMP Q4H 03/26/19 17:00 Gabapentin [Gabapentin] 600 mg PO TIDWM 03/26/19 22:00 Gabapentin [Gabapentin] 1,200 mg PO HS 03/26/19 Breakfast 1800 Calorie ADA 03/27/19 10:00 Fluticasone Propionate [Flonase NASAL] 16 gm NS DAILY Loratadine 10 mg [Claritin 10 mg] 10 mg PO QAM Simvastatin 20Mg [Zocor 20Mg] 20 mg PO QAM Lab Tests 03/25/19 03/25/19 03/25/19 16:25 16:25 17:30 WBC RBC Hgb Hct MCV MCH MCHC RDW Plt Count MPV Gran % Eos # (Auto) Absolute Lymphs (auto) Absolute Monos (auto) Lymphocytes % Monocytes % Eosinophils % Basophils % Absolute Granulocytes Basophils # Puncture Site pCO2 pO2 Base Excess O2 Saturation ABG pH ABG HCO3 ABG O2 Sat (Measured) Tone Test A-a Gradient a/A Ratio Hemoglobin Carboxyhemoglobin Methemoglobin Temperature POC O2 Flow Rate Sodium 143 Potassium 4.5 Chloride 107 Carbon Dioxide 13 L* Anion Gap 28.1 H BUN 33 H Creatinine 1.27 H Estimated GFR > 60.0 Glucose 375 H Hemoglobin A1c 10.56 H Lactic Acid Calcium 9.2 Total Bilirubin AST ALT Alkaline Phosphatase Troponin I < 0.012 Serum Total Protein Albumin 03/25/19 03/25/19 03/25/19 19:17 19:41 20:25 WBC RBC Hgb Hct MCV MCH MCHC RDW Plt Count MPV Gran % Eos # (Auto) Absolute Lymphs (auto) Absolute Monos (auto) Lymphocytes % Monocytes % Eosinophils % Basophils % Absolute Granulocytes Basophils # Puncture Site pCO2 pO2 Base Excess O2 Saturation ABG pH ABG HCO3 ABG O2 Sat (Measured) Tone Test A-a Gradient a/A Ratio Hemoglobin Carboxyhemoglobin Methemoglobin Temperature POC O2 Flow Rate Sodium 143 Potassium 3.9 Chloride 111 H Carbon Dioxide 22 Anion Gap 14.1 BUN 28 H Creatinine 0.97 Estimated GFR > 60.0 Glucose 168 H Hemoglobin A1c Lactic Acid 1.9 Calcium 8.8 Total Bilirubin AST ALT Alkaline Phosphatase Troponin I < 0.012 Serum Total Protein Albumin 03/25/19 03/25/19 03/26/19 20:38 21:58 01:05 WBC RBC Hgb Hct MCV MCH MCHC RDW Plt Count MPV Gran % Eos # (Auto) Absolute Lymphs (auto) Absolute Monos (auto) Lymphocytes % Monocytes % Eosinophils % Basophils % Absolute Granulocytes Basophils # Puncture Site LEFT BRACHIAL pCO2 28 L pO2 95 Base Excess 0.3 O2 Saturation 94.8 ABG pH 7.51 H ABG HCO3 22.3 ABG O2 Sat (Measured) 98.8 Tone Test YES A-a Gradient 20 a/A Ratio 0.83 Hemoglobin 12.6 Carboxyhemoglobin 2.9 Methemoglobin 1.1 L Temperature 37.0 POC O2 Flow Rate 21 Sodium 142 Potassium 3.8 4.5 Chloride 109 H Carbon Dioxide 20 L Anion Gap 18.1 H BUN 26 H Creatinine 0.96 Estimated GFR > 60.0 Glucose 232 H Hemoglobin A1c Lactic Acid Calcium 8.1 L Total Bilirubin AST ALT Alkaline Phosphatase Troponin I < 0.012 Serum Total Protein Albumin 03/26/19 03/26/19 03/26/19 01:30 04:00 06:06 WBC 16.1 H RBC 4.25 Hgb 12.8 Hct 38.1 L MCV 89.6 MCH 30.1 MCHC 33.6 RDW 14.2 H Plt Count 234 D MPV 11.5 H Gran % 86.7 H Eos # (Auto) 0.01 Absolute Lymphs (auto) 1.30 Absolute Monos (auto) 0.80 Lymphocytes % 8.1 L Monocytes % 5.0 Eosinophils % 0.1 Basophils % 0.1 Absolute Granulocytes 13.93 H Basophils # 0.01 Puncture Site pCO2 pO2 Base Excess O2 Saturation ABG pH ABG HCO3 ABG O2 Sat (Measured) Tone Test A-a Gradient a/A Ratio Hemoglobin Carboxyhemoglobin Methemoglobin Temperature POC O2 Flow Rate Sodium Potassium Chloride Carbon Dioxide Anion Gap BUN Creatinine Estimated GFR Glucose Hemoglobin A1c Lactic Acid 0.8 Calcium Total Bilirubin AST ALT Alkaline Phosphatase Troponin I < 0.012 Serum Total Protein Albumin 03/26/19 03/26/19 03/26/19 06:06 07:00 08:25 WBC RBC Hgb Hct MCV MCH MCHC RDW Plt Count MPV Gran % Eos # (Auto) Absolute Lymphs (auto) Absolute Monos (auto) Lymphocytes % Monocytes % Eosinophils % Basophils % Absolute Granulocytes Basophils # Puncture Site LEFT BRACHIAL pCO2 34 L pO2 93 Base Excess -4.9 L O2 Saturation 96.1 ABG pH 7.37 ABG HCO3 19.7 L ABG O2 Sat (Measured) 98.6 Tone Test NOT APPLICABLE A-a Gradient 64 a/A Ratio 0.59 Hemoglobin 12.1 Carboxyhemoglobin 1.5 Methemoglobin 1.0 L Temperature 37.0 POC O2 Flow Rate 28 Sodium 142 142 Potassium 4.6 4.2 4.3 Chloride 111 H 111 H Carbon Dioxide 17 L 21 L Anion Gap 18.2 H 14.2 BUN 24 H 22 H Creatinine 0.89 0.88 Estimated GFR > 60.0 > 60.0 Glucose 284 H 187 H Hemoglobin A1c Lactic Acid Calcium 8.1 L 8.1 L Total Bilirubin 1.30 AST 22 ALT 14 Alkaline Phosphatase 66 Troponin I Serum Total Protein 5.8 L Albumin 3.2 L 03/26/19 12:23 WBC RBC Hgb Hct MCV MCH MCHC RDW Plt Count MPV Gran % Eos # (Auto) Absolute Lymphs (auto) Absolute Monos (auto) Lymphocytes % Monocytes % Eosinophils % Basophils % Absolute Granulocytes Basophils # Puncture Site pCO2 pO2 Base Excess O2 Saturation ABG pH ABG HCO3 ABG O2 Sat (Measured) Tone Test A-a Gradient a/A Ratio Hemoglobin Carboxyhemoglobin Methemoglobin Temperature POC O2 Flow Rate Sodium 141 Potassium 4.6 Chloride 113 H Carbon Dioxide 20 L Anion Gap 12.9 BUN 19 Creatinine 0.77 Estimated GFR > 60.0 Glucose 103 Hemoglobin A1c Lactic Acid Calcium 8.0 L Total Bilirubin AST ALT Alkaline Phosphatase Troponin I Serum Total Protein Albumin - Vitals & Intake/Output Vital Signs: Vital Signs Temperature 97.6 F 03/26/19 12:17 Pulse Rate 78 03/26/19 12:17 Respiratory Rate 20 03/26/19 12:17 Blood Pressure 97/50 03/26/19 12:17 O2 Sat by Pulse Oximetry 98 03/26/19 12:17 Oxygen-Last Documented O2 Percentage 2 Liters = 28% Intake & Output: Intake & Output 03/24/19 03/25/19 03/26/19 03/27/19 11:59 11:59 11:59 11:59 Intake Total 5358 Output Total 1700 Balance 3658 Weight 80.5 kg - Lab Result Diagrams: 03/26/19 06:06 03/26/19 12:23 Lab Results-Last 24 Hrs: Accuchecks Date 03/26/19 Date 03/26/19 Date 03/26/19 Date 03/26/19 Time 14:10 Time 12:00 Time 10:00 Time 07:45 Accucheck Value: 148 Accucheck Value: 111 Accucheck Value: 48 Accucheck Value: 257 Accucheck Value: 280 Accucheck Value: 338 Accucheck Value: 263 Accucheck Value: 174 Accucheck Value: 131 Accucheck Value: 150 Accucheck Value: 177 Accucheck Value: 208 Accucheck Value: 247 Accucheck Value: 345 Lab Results-Last 24 Hours 03/25/19 03/25/19 03/25/19 Range/Units 16:25 16:25 17:30 WBC (4.0-10.5) K/mm3 RBC (4.1-5.6) M/mm3 Hgb (12.5-18.0) gm/dl Hct (42-50) % MCV (78-100) fl MCH (26-32) pg MCHC (32-36) g/dl RDW (11.5-14.0) % Plt Count (150-450) K/mm3 MPV (6-9.5) fl Gran % (36.0-66.0) % Eos # (Auto) (0-0.5) Absolute Lymphs (auto) (1.0-4.6) Absolute Monos (auto) (0.0-1.3) Lymphocytes % (24.0-44.0) % Monocytes % (0.0-12.0) % Eosinophils % (0.00-5.0) % Basophils % (0.0-0.4) % Absolute Granulocytes (1.4-6.9) Basophils # (0-0.4) Puncture Site pCO2 (35-45) mmHg pO2 (75-100) mmHg Base Excess (-2.0-2.0) O2 Saturation (94-100) g/dF ABG pH (7.35-7.45) ABG HCO3 (22-28) ABG O2 Sat (Measured) (95-100) % Tone Test A-a Gradient a/A Ratio Hemoglobin Carboxyhemoglobin (0.0-6.9) % THgb Methemoglobin (1.4-1.5) % Temperature C POC O2 Flow Rate % Sodium 143 (137-145) mmol/L Potassium 4.5 (3.5-5.1) mmol/L Chloride 107 (98-107) mmol/L Carbon Dioxide 13 L* (22-30) mmol/L Anion Gap 28.1 H (5-15) MEQ/L BUN 33 H (9-20) mg/dL Creatinine 1.27 H (0.66-1.25) mg/dL Estimated GFR > 60.0 ML/MIN Glucose 375 H (74-106) mg/dL Hemoglobin A1c 10.56 H (4.5-6.0) % Lactic Acid (0.4-2.0) Calcium 9.2 (8.4-10.2) mg/dL Total Bilirubin (0.2-1.3) mg/dL AST (17-59) U/L ALT (0-50) U/L Alkaline Phosphatase (38-126) U/L Troponin I < 0.012 (0.000-0.034) ng/mL Serum Total Protein (6.3-8.2) g/dL Albumin (3.5-5.0) g/dL 03/25/19 03/25/19 03/25/19 Range/Units 19:17 19:41 20:25 WBC (4.0-10.5) K/mm3 RBC (4.1-5.6) M/mm3 Hgb (12.5-18.0) gm/dl Hct (42-50) % MCV (78-100) fl MCH (26-32) pg MCHC (32-36) g/dl RDW (11.5-14.0) % Plt Count (150-450) K/mm3 MPV (6-9.5) fl Gran % (36.0-66.0) % Eos # (Auto) (0-0.5) Absolute Lymphs (auto) (1.0-4.6) Absolute Monos (auto) (0.0-1.3) Lymphocytes % (24.0-44.0) % Monocytes % (0.0-12.0) % Eosinophils % (0.00-5.0) % Basophils % (0.0-0.4) % Absolute Granulocytes (1.4-6.9) Basophils # (0-0.4) Puncture Site pCO2 (35-45) mmHg pO2 (75-100) mmHg Base Excess (-2.0-2.0) O2 Saturation (94-100) g/dF ABG pH (7.35-7.45) ABG HCO3 (22-28) ABG O2 Sat (Measured) (95-100) % Tone Test A-a Gradient a/A Ratio Hemoglobin Carboxyhemoglobin (0.0-6.9) % THgb Methemoglobin (1.4-1.5) % Temperature C POC O2 Flow Rate % Sodium 143 (137-145) mmol/L Potassium 3.9 (3.5-5.1) mmol/L Chloride 111 H (98-107) mmol/L Carbon Dioxide 22 (22-30) mmol/L Anion Gap 14.1 (5-15) MEQ/L BUN 28 H (9-20) mg/dL Creatinine 0.97 (0.66-1.25) mg/dL Estimated GFR > 60.0 ML/MIN Glucose 168 H (74-106) mg/dL Hemoglobin A1c (4.5-6.0) % Lactic Acid 1.9 (0.4-2.0) Calcium 8.8 (8.4-10.2) mg/dL Total Bilirubin (0.2-1.3) mg/dL AST (17-59) U/L ALT (0-50) U/L Alkaline Phosphatase (38-126) U/L Troponin I < 0.012 (0.000-0.034) ng/mL Serum Total Protein (6.3-8.2) g/dL Albumin (3.5-5.0) g/dL 03/25/19 03/25/19 03/26/19 Range/Units 20:38 21:58 01:05 WBC (4.0-10.5) K/mm3 RBC (4.1-5.6) M/mm3 Hgb (12.5-18.0) gm/dl Hct (42-50) % MCV (78-100) fl MCH (26-32) pg MCHC (32-36) g/dl RDW (11.5-14.0) % Plt Count (150-450) K/mm3 MPV (6-9.5) fl Gran % (36.0-66.0) % Eos # (Auto) (0-0.5) Absolute Lymphs (auto) (1.0-4.6) Absolute Monos (auto) (0.0-1.3) Lymphocytes % (24.0-44.0) % Monocytes % (0.0-12.0) % Eosinophils % (0.00-5.0) % Basophils % (0.0-0.4) % Absolute Granulocytes (1.4-6.9) Basophils # (0-0.4) Puncture Site LEFT BRACHIAL pCO2 28 L (35-45) mmHg pO2 95 (75-100) mmHg Base Excess 0.3 (-2.0-2.0) O2 Saturation 94.8 (94-100) g/dF ABG pH 7.51 H (7.35-7.45) ABG HCO3 22.3 (22-28) ABG O2 Sat (Measured) 98.8 (95-100) % Tone Test YES A-a Gradient 20 a/A Ratio 0.83 Hemoglobin 12.6 Carboxyhemoglobin 2.9 (0.0-6.9) % THgb Methemoglobin 1.1 L (1.4-1.5) % Temperature 37.0 C POC O2 Flow Rate 21 % Sodium 142 (137-145) mmol/L Potassium 3.8 4.5 (3.5-5.1) mmol/L Chloride 109 H (98-107) mmol/L Carbon Dioxide 20 L (22-30) mmol/L Anion Gap 18.1 H (5-15) MEQ/L BUN 26 H (9-20) mg/dL Creatinine 0.96 (0.66-1.25) mg/dL Estimated GFR > 60.0 ML/MIN Glucose 232 H (74-106) mg/dL Hemoglobin A1c (4.5-6.0) % Lactic Acid (0.4-2.0) Calcium 8.1 L (8.4-10.2) mg/dL Total Bilirubin (0.2-1.3) mg/dL AST (17-59) U/L ALT (0-50) U/L Alkaline Phosphatase (38-126) U/L Troponin I < 0.012 (0.000-0.034) ng/mL Serum Total Protein (6.3-8.2) g/dL Albumin (3.5-5.0) g/dL 03/26/19 03/26/19 03/26/19 Range/Units 01:30 04:00 06:06 WBC 16.1 H (4.0-10.5) K/mm3 RBC 4.25 (4.1-5.6) M/mm3 Hgb 12.8 (12.5-18.0) gm/dl Hct 38.1 L (42-50) % MCV 89.6 (78-100) fl MCH 30.1 (26-32) pg MCHC 33.6 (32-36) g/dl RDW 14.2 H (11.5-14.0) % Plt Count 234 D (150-450) K/mm3 MPV 11.5 H (6-9.5) fl Gran % 86.7 H (36.0-66.0) % Eos # (Auto) 0.01 (0-0.5) Absolute Lymphs (auto) 1.30 (1.0-4.6) Absolute Monos (auto) 0.80 (0.0-1.3) Lymphocytes % 8.1 L (24.0-44.0) % Monocytes % 5.0 (0.0-12.0) % Eosinophils % 0.1 (0.00-5.0) % Basophils % 0.1 (0.0-0.4) % Absolute Granulocytes 13.93 H (1.4-6.9) Basophils # 0.01 (0-0.4) Puncture Site pCO2 (35-45) mmHg pO2 (75-100) mmHg Base Excess (-2.0-2.0) O2 Saturation (94-100) g/dF ABG pH (7.35-7.45) ABG HCO3 (22-28) ABG O2 Sat (Measured) (95-100) % Tone Test A-a Gradient a/A Ratio Hemoglobin Carboxyhemoglobin (0.0-6.9) % THgb Methemoglobin (1.4-1.5) % Temperature C POC O2 Flow Rate % Sodium (137-145) mmol/L Potassium (3.5-5.1) mmol/L Chloride (98-107) mmol/L Carbon Dioxide (22-30) mmol/L Anion Gap (5-15) MEQ/L BUN (9-20) mg/dL Creatinine (0.66-1.25) mg/dL Estimated GFR ML/MIN Glucose (74-106) mg/dL Hemoglobin A1c (4.5-6.0) % Lactic Acid 0.8 (0.4-2.0) Calcium (8.4-10.2) mg/dL Total Bilirubin (0.2-1.3) mg/dL AST (17-59) U/L ALT (0-50) U/L Alkaline Phosphatase (38-126) U/L Troponin I < 0.012 (0.000-0.034) ng/mL Serum Total Protein (6.3-8.2) g/dL Albumin (3.5-5.0) g/dL 03/26/19 03/26/19 03/26/19 Range/Units 06:06 07:00 08:25 WBC (4.0-10.5) K/mm3 RBC (4.1-5.6) M/mm3 Hgb (12.5-18.0) gm/dl Hct (42-50) % MCV (78-100) fl MCH (26-32) pg MCHC (32-36) g/dl RDW (11.5-14.0) % Plt Count (150-450) K/mm3 MPV (6-9.5) fl Gran % (36.0-66.0) % Eos # (Auto) (0-0.5) Absolute Lymphs (auto) (1.0-4.6) Absolute Monos (auto) (0.0-1.3) Lymphocytes % (24.0-44.0) % Monocytes % (0.0-12.0) % Eosinophils % (0.00-5.0) % Basophils % (0.0-0.4) % Absolute Granulocytes (1.4-6.9) Basophils # (0-0.4) Puncture Site LEFT BRACHIAL pCO2 34 L (35-45) mmHg pO2 93 (75-100) mmHg Base Excess -4.9 L (-2.0-2.0) O2 Saturation 96.1 (94-100) g/dF ABG pH 7.37 (7.35-7.45) ABG HCO3 19.7 L (22-28) ABG O2 Sat (Measured) 98.6 (95-100) % Tone Test NOT APPLICABLE A-a Gradient 64 a/A Ratio 0.59 Hemoglobin 12.1 Carboxyhemoglobin 1.5 (0.0-6.9) % THgb Methemoglobin 1.0 L (1.4-1.5) % Temperature 37.0 C POC O2 Flow Rate 28 % Sodium 142 142 (137-145) mmol/L Potassium 4.6 4.2 4.3 (3.5-5.1) mmol/L Chloride 111 H 111 H (98-107) mmol/L Carbon Dioxide 17 L 21 L (22-30) mmol/L Anion Gap 18.2 H 14.2 (5-15) MEQ/L BUN 24 H 22 H (9-20) mg/dL Creatinine 0.89 0.88 (0.66-1.25) mg/dL Estimated GFR > 60.0 > 60.0 ML/MIN Glucose 284 H 187 H (74-106) mg/dL Hemoglobin A1c (4.5-6.0) % Lactic Acid (0.4-2.0) Calcium 8.1 L 8.1 L (8.4-10.2) mg/dL Total Bilirubin 1.30 (0.2-1.3) mg/dL AST 22 (17-59) U/L ALT 14 (0-50) U/L Alkaline Phosphatase 66 (38-126) U/L Troponin I (0.000-0.034) ng/mL Serum Total Protein 5.8 L (6.3-8.2) g/dL Albumin 3.2 L (3.5-5.0) g/dL 03/26/19 Range/Units 12:23 WBC (4.0-10.5) K/mm3 RBC (4.1-5.6) M/mm3 Hgb (12.5-18.0) gm/dl Hct (42-50) % MCV (78-100) fl MCH (26-32) pg MCHC (32-36) g/dl RDW (11.5-14.0) % Plt Count (150-450) K/mm3 MPV (6-9.5) fl Gran % (36.0-66.0) % Eos # (Auto) (0-0.5) Absolute Lymphs (auto) (1.0-4.6) Absolute Monos (auto) (0.0-1.3) Lymphocytes % (24.0-44.0) % Monocytes % (0.0-12.0) % Eosinophils % (0.00-5.0) % Basophils % (0.0-0.4) % Absolute Granulocytes (1.4-6.9) Basophils # (0-0.4) Puncture Site pCO2 (35-45) mmHg pO2 (75-100) mmHg Base Excess (-2.0-2.0) O2 Saturation (94-100) g/dF ABG pH (7.35-7.45) ABG HCO3 (22-28) ABG O2 Sat (Measured) (95-100) % Tone Test A-a Gradient a/A Ratio Hemoglobin Carboxyhemoglobin (0.0-6.9) % THgb Methemoglobin (1.4-1.5) % Temperature C POC O2 Flow Rate % Sodium 141 (137-145) mmol/L Potassium 4.6 (3.5-5.1) mmol/L Chloride 113 H (98-107) mmol/L Carbon Dioxide 20 L (22-30) mmol/L Anion Gap 12.9 (5-15) MEQ/L BUN 19 (9-20) mg/dL Creatinine 0.77 (0.66-1.25) mg/dL Estimated GFR > 60.0 ML/MIN Glucose 103 (74-106) mg/dL Hemoglobin A1c (4.5-6.0) % Lactic Acid (0.4-2.0) Calcium 8.0 L (8.4-10.2) mg/dL Total Bilirubin (0.2-1.3) mg/dL AST (17-59) U/L ALT (0-50) U/L Alkaline Phosphatase (38-126) U/L Troponin I (0.000-0.034) ng/mL Serum Total Protein (6.3-8.2) g/dL Albumin (3.5-5.0) g/dL Micro Results-Entire Visit: Accuchecks Date 03/26/19 Date 03/26/19 Date 03/26/19 Date 03/26/19 Time 14:10 Time 12:00 Time 10:00 Time 07:45 Accucheck Value: 148 Accucheck Value: 111 Accucheck Value: 48 Accucheck Value: 257 Accucheck Value: 280 Accucheck Value: 338 Accucheck Value: 263 Accucheck Value: 174 Accucheck Value: 131 Accucheck Value: 150 Accucheck Value: 177 Accucheck Value: 208 Accucheck Value: 247 Accucheck Value: 345 - Radiology Exams Ordered Rad Exams-Entire Visit: Radiology Procedures Category Date Time Status CHEST 1 VIEW (PORTABLE) Stat Exams 03/25/19 12:46 Completed - Procedures and Test Procedures and Tests throughout Hospitalization: Therapy Orders & Screens 03/25/19 16:14 Oxygen Nasal Cannula 2 lpm Comment: - Discharge Discharge Date: 03/26/19 Disposition: Home, Self-Care Condition: Stable Prescriptions: New Cephalexin Mh 500 mg [Keflex 500 mg] 500 mg PO QID #20 capsule Continue Insulin Aspart [NovoLOG Insulin] 15 units SQ UD Atorvastatin Calcium [Lipitor 20MG Tablet] 20 mg PO QAM Loratadine 10 mg [Claritin 10 mg] 10 mg PO QAM Fluticasone Propionate [Flonase NASAL] 16 gm NS DAILY Gabapentin 1,200 mg PO HS Gabapentin 600 mg PO TIDWM Insulin Glargine [Lantus Insulin] 50 units SQ QAM Instructions: Diabetic Ketoacidosis (DC) Follow up with: RUSTY ORTIZ MD [ACTIVE STAFF] - 1 Week
[2019-03-26] MEDS ORDERED: NEURONTIN 300 MG PO SCH (17:00)
[2019-03-26] MEDS ORDERED: Neurontin 400 MG PO SCH (22:00)
[2019-03-27] MEDS ORDERED: ZOCOR 20MG PO SCH (10:00)
[2019-03-27] MEDS ORDERED: CLARITIN 10 MG PO SCH (10:00)
[2019-03-27] MEDS ORDERED: Flonase NASAL NS SCH (10:00)
== END 2019-03-26 15:58 | disposition home or self-care (01) ==
LOC: ED 12:34 → INTOOBSV 17:08 → ICU 17:08
PROVIDERS: ADMIT General Practice; ATTEND General Practice
DX: E11.10 Type 2 diabetes mellitus with ketoacidosis without coma (principal); J44.9 Chronic obstructive pulmonary disease, unspecified; E78.00 Pure hypercholesterolemia, unspecified; Z79.4 Long term (current) use of insulin; Z79.899 Other long term (current) drug therapy
CPT/HCPCS: 36000; 36415; 36600; 71045; 80048; 80053; 81001; 82375; 82803; 82962; 83036; 83605; 84484; 85025; 85379; 87040; 93005; 93041; 96360; 96365; 96367; 96368; 96374; 96376; 99285; 99291; 99292; J1650; J1815; J2270; J2405; J2543; J3370; A9270-GY

== ENCOUNTER 2021-07-31 15:23 | Inpatient (IN) | payer MEDICAID, OTHER ==
[2021-07-31 17:55] LABS: Absolute Neutrophil Ct (ANC) 5.55 (1.4-6.9); BASOPHIL % 0.8 % (0.0-0.4); Basophil (Absolute #) 0.08 (0-0.4); Eosinophil % 0.7 % (0.00-5.0); Eosinophil (Absolute #) 0.07 (0-0.5); Hematocrit 38.8 % (42-50); Lymphocyte (Absolute #) 3.04 (1.0-4.6); Lymphocytes % 31.3 % (24.0-44.0); Mean Cell Volume 88.6 fl (78-100); Mean Corpuscular Hemoglobin 29.7 pg (26-32); Mean Corpuscular Hgb Concent. 33.5 g/dl (32-36); Mean Platelet Volume 10.6 fl (7.5-11.0); Monocyte (Absolute #) 0.98 (0.0-1.3); Monocytes % 10.1 % (0.0-12.0); Neutrophil % 57.1 % (36.0-66.0); Platelet Count 240 K/mm3 (150-450); Red Blood Count 4.38 M/mm3 (4.1-5.6); Red Cell Distribution Width 14.2 % (11.5-14.0); White Blood Count 9.7 K/mm3 (4.0-10.5)
[2021-07-31 18:01] LABS: INR 0.97 (0.8-3.0); PROTIME 11.4 SECONDS (9.4-12.5)
[2021-07-31 18:04] LABS: PTT 28.8 SECONDS (25.1-36.5)
[2021-07-31 18:07] LABS: ALBUMIN 4.4 g/dL (3.5-5.0); ALKALINE PHOSPHATASE 96 U/L (38-126); ANION GAP 14.1 MEQ/L (5-15); BLOOD UREA NITROGEN 20 mg/dL (9-20); CHLORIDE 103 mmol/L (98-107); Calcium 9.9 mg/dL (8.4-10.2); Carbon Dioxide 28 mmol/L (22-30); Creatinine 1 0.82 mg/dL (0.66-1.25); EST GLOMERULAR FILTRATION RATE > 60.0 ML/MIN; Glucose 74 mg/dL (74-106); Potassium 3.7 mmol/L (3.5-5.1); SGOT/AST 29 U/L (17-59); SGPT/ALT 26 U/L (0-50); SODIUM 142 mmol/L (137-145); Total Protein 7.3 g/dL (6.3-8.2)
[2021-07-31] MEDS: VANCOMYCIN 1 GRAM/200 ML BAG 1 GM/200 ML PIGGYBACK IV SCH (18:14)
[2021-07-31] MEDS: Zosyn 3.375 GM Vial 3.375 GM in Sodium Chloride 100ML MINI-BAG PLUS 100 ML IV SCH (18:14)
--- NOTE | 2021-07-31 18:30 | PCM.HP ---
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 Hardware was removed recently/screw from left great toe. Patient has chronic and acute osteomyelitis of right great toe. He states that he is ready to have this amputation as he has suffered alot. 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 and does not take Lspro at full dose ), Other (IDDM2) Hematologic/Lymphatic: No Symptoms Medications & Allergies Home Medications: Home Medication List Insulin Aspart [NovoLOG Insulin] 1 units SQ UD 05/29/16 [History Confirmed 07/31/21] Loratadine 10 mg [Claritin 10 mg] 10 mg PO QAM 01/12/18 [History Confirmed 07/31/21] Fluticasone Propionate [Flonase NASAL] 16 gm NS DAILY 03/25/19 [History Confirmed 07/31/21] Gabapentin 1,200 mg PO BID 03/25/19 [History Confirmed 07/31/21] Gabapentin 600 mg PO LUNCH 03/25/19 [History Confirmed 07/31/21] Insulin Glargine [Lantus Insulin] 40 units SQ QAM 03/25/19 [History Confirmed 07/31/21] Ascorbic Acid [Vitamin C] 1,000 mg PO DAILY 07/31/21 [History Confirmed 07/31/21] Allergies/Adverse Reactions: Allergies Allergy/AdvReac Type Severity Reaction Status Date / Time codeine AdvReac Severe Vomiting Verified 03/25/19 13:04 hydrocodone bitartrate AdvReac Severe Vomiting Verified 03/25/19 13:04 [From Vicodin] acetaminophen AdvReac Verified 03/25/19 13:04 [From Darvocet-N 100] propoxyphene AdvReac Verified 03/25/19 13:04 [From Darvocet-N 100] - Past Medical History Past Medical History: Yes Neurological History: No Pertinent History ENT History: No Pertinent History Cardiac History: High Cholesterol Respiratory History: Pneumonia Endocrine Medical History: Diabetes Type II Musculoskelatal History: No Pertinent History GI Medical History: Other History: No Pertinent History Pyscho-Social History: No Pertinent History Male Reproductive Disorders: No Pertinent History Comment: FX L LEG AND FOOT subsequent infection. diarrhea x3 weeks, was hospitalized for gi sx. gangrene, sepsis - Past Surgical History Past Surgical History: Yes Neuro Surgical History: No Pertinent History Cardiac History: No Pertinent History Respiratory Surgery: No Pertinent History GI Surgical History: Cholecystectomy, Hernia Repair Genitourinary Surgical Hx: No Pertinent History Musculskeletal Surgical Hx: Orthopedic Surgery Male Surgical History: No Pertinent History Other Surgical History: right femur fixed at age 15. left foot broke at age 20. left leg and foot surgery ,,I&D of left foot, polyps removed - Social History Smoking Status: Never smoker Exposure to second hand smoke: Yes Alcohol: Rarely Drug Use: none - Physical Exam Vital Signs: Vital Signs - 24 hr Temp Pulse Resp BP Pulse Ox 07/31/21 17:33 98.4 F 92 H 16 187/89 97 General Appearance: mild distress (resting in hospital bed ,pain in righ great toe) Neurologic Exam: alert, oriented x 3, normal mood/affect Eye Exam: eyes nml inspection Ears, Nose, Throat Exam: normal ENT inspection Neck Exam: normal inspection Respiratory Exam: normal breath sounds Cardiovascular Exam: regular rate/rhythm Gastrointestinal/Abdomen Exam: soft, normal bowel sounds (nontender) Rectal Exam: not done Back Exam: decreased range of motion Extremity Exam: other (no pitting edema except left great toe red and swollen,discharge from tip oe toe wherenail/screw was removed.) Skin Exam: normal color, warm, dry Results - Labs Lab/Micro Results: Lab Results-Last 24 Hours 07/31/21 07/31/21 Range/Units 15:36 17:29 POC Glucometer 61 L (74 to 106) mg/dL SARS-CoV-2 (PCR) NEGATIVE (NEGATIVE) - Radiology Impressions Radiology Exams & Impressions: Radiology Procedures Category Date Time Status FOOT (2 VIEWS) Routine Exams 07/31/21 18:00 Ordered PICC LINE PLACEMENT Routine Exams 07/31/21 18:00 Ordered - Other Procedures and Tests Respiratory Therapy 07/31/21 18:05 EKG ROUTINE Assessment/Plan (1) Osteomyelitis Current Visit: Yes Status: Acute Qualifiers: Laterality: left Assessment & Plan: acute and chronic osteomyelitis, antibiotics and surgery/amputation left great toe planned for in the morning. Code(s): M86.9 - OSTEOMYELITIS, UNSPECIFIED (2) IDDM (insulin dependent diabetes mellitus) Current Visit: Yes Status: Acute Assessment & Plan: uncontrolled in part due to chronic osteomyelitis. Code(s): VMJ3763 - (3) Rib pain Current Visit: Yes Status: Acute Assessment & Plan: injury 2 weeks ago-CXR and right rib xray. Code(s): R07.81 - PLEURODYNIA
[2021-07-31 19:05] LABS: Erythrocyte Sedimentation Rate 46 mm/hr (0-15)
[2021-07-31] MEDS: HUMALOG SQ PRN (21:07)
[2021-07-31 21:19] LABS: Appearance CLEAR (CLEAR); Bilirubin NEGATIVE (NEGATIVE); Blood NEGATIVE Ery/ul (0-5); Glucose >=500 mg/dL (NEGATIVE); Ketones NEGATIVE (NEGATIVE); Leukocyte Esterase NEGATIVE (NEGATIVE); Nitrite NEGATIVE (NEGATIVE); Protein,Urine Dip NEGATIVE (Negative); Specific Gravity 1.003 (1.005-1.025); Urobilinogen NEGATIVE mg/dL (0-1)
[2021-07-31] MEDS ORDERED: NEURONTIN 300 MG PO ONE (22:30)
[2021-08-01] MEDS: Zosyn 3.375 GM Vial 3.375 GM in Sodium Chloride 100ML MINI-BAG PLUS 100 ML IV SCH ×3 (02:56→21:12)
[2021-08-01] MEDS ORDERED: HUMALOG SQ ONE (04:23)
[2021-08-01] MEDS: HUMALOG SQ PRN ×3 (06:38→21:13)
[2021-08-01] MEDS ORDERED: XYLOCAINE 1% HCL 20 ML MDV ONE (06:53)
[2021-08-01] MEDS ORDERED: BUPIVACAINE 0.5% VIAL IJ ONE (06:53)
[2021-08-01] MEDS: Lactated Ringers 1,000 ML IV SCH (07:00)
[2021-08-01] MEDS ORDERED: DIPRIVAN 200 MG/20 ML IV ONE ×2 (07:34→08:22)
[2021-08-01] MEDS ORDERED: SUBLIMAZE 100 MCG/2 ML ONE (07:35)
[2021-08-01] MEDS ORDERED: Ketamine HCl 50 MG/ML ONE (07:45)
[2021-08-01] MEDS ORDERED: Versed 2 MG/2 ML Injection ONE (07:45)
--- NOTE | 2021-08-01 08:46 | XRAY ---
Indication: Osteomyelitis. Comparison: June 16, 2021. 2 nonweightbearing views left foot again demonstrates osteopenia, pes planus, tiny heel spurs, and incompletely visualized distal tibia with orthopedic hardware, and great toe fusion with intact orthopedic screw. New diffuse great toe soft tissue swelling without acute fracture or obvious osseous destructive process. Remaining foot unremarkable.
--- NOTE | 2021-08-01 08:50 | XRAY ---
Indication: Posterior lateral rib pain 2 weeks following injury. Comparison: None 2 view right ribs demonstrates nondisplaced fracture distal 11th rib without hemothorax/pneumothorax. Incidental mild osteopenia, minimal degenerative changes throughout the thoracolumbar spine, mild acromioclavicular degenerative arthropathy, and cholecystectomy clips. Comment: Preliminary interpretation made by [facility]. No critical discrepancy.
[2021-08-01] MEDS ORDERED: Hydromorphone 1 mg/ml Injection ONE (09:09)
--- NOTE | 2021-08-01 09:40 | PCM.NOTE ---
Podiatry Post-Op Plan Podiatry Post-Op Plan: Podiatry Post-Op Plan Post-operative plan is as follows: ANTIBIOTICS: Vancomycin 1 g IV every 12, Zosyn 3.375 g every 8 hours PAIN CONTROL: Garibaldi 5/325mg q4h moderate pain. Morphine 2 mg q4h severe pain. Discharge with Garibaldi 5/325mg q6h Dispensed 28 VTE PROPHYLAXIS: Previous history of DVT discontinue aspirin 325 mg p.o. daily substitute for Lovenox 40 mg daily. SCD and compression hose to non op leg. Discharge with Xarelto 10mg daily for 30 days. DRESSINGS: Dressing to remain clean and dry. Reinforce with Kerlix/TORITO as necessary. ACTIVITY: Partial weightbearing to operative side heel for now. On return to OR closure patient will be nonweightbearing for immediate postoperative term until closure of wound is guaranteed THERAPIES: PT/OT consult for gait training, assistive device training, and assessment of functional status with NWB to the Left. Incentive Spirometry. PLACEMENT: CM consult For return to home after repeat surgical intervention
[2021-08-01] MEDS ORDERED: NON-FORMULARY ITEM (Insulin Aspart** [Novolog Insulin] 100 UNITS/ML Vial) SQ SCH (11:00)
[2021-08-01] MEDS ORDERED: NORCO 5/325 MG PO PRN (11:14)
--- NOTE | 2021-08-01 11:38 | OP ---
SURGERY DATE/TIME: 08/01/2021 0803 PREOPERATIVE DIAGNOSES: 1) Acute osteomyelitis left great toe. 2) Chronic osteomyelitis left great toe. 3) Diabetic foot infection with abscess. 4) Left foot pain. POSTOPERATIVE DIAGNOSES: 1) Acute osteomyelitis left great toe. 2) Chronic osteomyelitis left great toe. 3) Diabetic foot infection with abscess. 4) Left foot pain. PROCEDURE: Disarticulation of left hallux at the level of the metatarsal phalangeal joint. SURGEON: Juan Mark DPM. HOUSEHOLD CHORES: None. ANESTHESIA: MAC plus preoperative local. HEMOSTASIS: Pressure dressing. ESTIMATED BLOOD LOSS: Less than 30 cc. MATERIALS: 2-0 Nylon. INJECTABLES: 20 cc of 1:1 mixture of 1% lidocaine plain and 0.5% bupivacaine plain injected in a Yang block-type fashion. INDICATION FOR SURGERY: Eric is a very pleasant 61-year-old male who is very well known to my service for having had exposed hardware to the distal tip of the left hallux in the past. 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 Following the injury he noticed a contracture of his left hallux that was fused by another provider due to the hallux malleolus that he was experiencing. However, there was an ulceration that started to develop as the screw started backing out secondary to pressure over time this was treated in the past and the ulceration seemed to open and close with wound care. However, there were no indications of osteomyelitis at that time. Approximately six weeks ago, the patient presented to my office with backing out of that screw through the skin with a fistula to the medullary cavity of the bone. At that time x-rays were taken demonstrating the screw and hardware were removed. However, the bone quality was consistent with chronic osteomyelitis. At that time there was no urgency in amputating the toe as it was chronic osteomyelitis and there is possibility of sequestrum in the bone for a number of years. However, we stated that we would treat this with outpatient antibiotics in order to assess if this will take care of the problem and potentially to keep the chronic osteomyelitis dormant indefinitely. At that time the patient understood that there was a risk that there would be an amputation in the future. However, at that time there was no urgency as he was not septic and there was no acute infection. The patient wished to proceed with limb salvage efforts at that time to which I agreed. Outpatient antibiotics were prescribed and follow up was set. Six weeks after that date the patient presented to the clinic with a painful swollen left hallux digit. On debridement there was significant amount of purulence indicating that there was an acute on chronic infection. With that we decided to proceed with the amputation in order better facilitate him proceeding to return to work. The patient understands all risks, benefits and complications of surgical intervention including but not limited to further need for surgical intervention in the future as this is a staged procedure allowing for bacteria to drain for several days before we perform the delayed primary closure. Possibility of need for further amputation secondary to closure of the wound this was also discussed with the patient in depth and he understands and agrees with this outcome, if necessary. He also understands that we may have difficulty in wound healing, infection, hematoma, seroma, as well as discussed before potential need for surgical intervention again in the future. He understands all of this and wishes to proceed. The patient was admitted under the care of Dr. Sarah Orellana and is willing to proceed with surgical intervention this morning. DESCRIPTION OF PROCEDURE AND FINDINGS: The patient is brought into the OR and placed and placed on the OR bed in supine position. At this time the left lower extremity was prepped and draped in the typical sterile fashion and was lowered onto the field. The patient sedated under monitored anesthesia care at this time. Attention was then directed to the left foot where a Yang block was performed utilizing a 1:1 mixture of 1% lidocaine plain and 0.5% bupivacaine plain injected in a digital block-type fashion. Once this was performed a medial racket-type incision was performed exposing the metatarsal head and the metatarsophalangeal joint. At this time the incision was made full thickness down to bone and circumferentially around the great toe leaving enough skin for closure once deemed adequate to do so. At this time disarticulation was performed releasing all soft tissue structures surrounding the metatarsophalangeal joint. Once the toe was disarticulated, then infected tissue was evaluated and debrided utilizing a combination of curettes, rongeurs, sharp and blunt dissection. At this time pulse lavage was utilized to provide copious amounts of sterile saline to flush out the surgical site, 3 liters were used in total. At this time the incision site was inspected for any remaining necrotic tissue. At this time the flexor tendons were removed from the surgical site as far proximal as possible. Following this the surgical site was then assessed once more and deemed to be clean of any residual abscess or infection. Attention was directed to the amputated toe where a number of pathological and soft tissue assessments were obtained and handed off the field for assessment. Attention was directed to the wound and 2-0 Nylon was utilized in [id number] type stitch to coapt the wound edges to assess for potential closure at a later date. The wound was left open in majority. However, this is to control hemostasis. At this time a wet lap was utilized to clean the surgical site and then dry. Betadine was applied to the wound with a dressing consisting of Adaptic, 4x4, Kerlix, ABD and TORITO applied with minimal compression. The patient was then reversed from anesthesia and brought to the postoperative anesthesia care unit with vital signs stable and vascular status intact. The patient will return to the floor with orders as indicated in the patients chart. The patient handled the anesthesia without complication as well as the procedure.
[2021-08-01] MEDS: VANCOMYCIN 1 GRAM/200 ML BAG 1 GM/200 ML PIGGYBACK IV SCH (12:11)
--- NOTE | 2021-08-01 13:46 | XRAY ---
Indication: Long-term IV access and therapy for left great toe infection. Informed consent obtained. Patient was placed on the fluoroscopic table in a supine position. Initial sonographic imaging of the right upper extremity was performed for localization of patent veins. The right upper extremity was then prepped and draped in sterile fashion. Tourniquet applied. 1% lidocaine plain used for local anesthesia. Using ultrasound guidance and a micropuncture needle, a basilic vein above the elbow was successfully percutaneously cannulized. A floppy tip 0.018 guidewire inserted. Tourniquet released. Needle was exchanged for a 5 Vincentian dilator peel-away sheath catheter. Ultimately a 5 Vincentian double-lumen PICC line was inserted over a longer 0.018 guidewire with the tip positioned in the distal SVC using fluoroscopic guidance. Guidewire removed. Both ports flushed with heparinized saline. Catheter was secured. Postoperative instructions and orders given. Patient discharged in good condition. Impression: Technically successful right upper extremity PICC line placement using ultrasound and fluoroscopic guidance. No immediate complications. Approximately 2 cc blood loss. Approximately 0.8 minute of fluoroscopy used. Catheter length is 35 cm.
[2021-08-01] MEDS: Vitamin C 500 MG PO SCH (13:48)
[2021-08-01] MEDS: CLARITIN 10 MG PO SCH (13:48)
[2021-08-01] MEDS: Ecotrin 325 MG PO SCH (13:48)
--- NOTE | 2021-08-01 13:48 | XRAY ---
Indication: Osteomyelitis. Comparison: One day earlier. 2 nonweightbearing views left foot demonstrates interval great toe amputation. Stable osteopenia, tiny heel spurs, and incompletely visualized distal tibia orthopedic hardware. No other bony, articular, or soft tissue abnormalities.
[2021-08-01] MEDS: Neurontin 400 MG PO SCH ×2 (13:49→19:38)
--- NOTE | 2021-08-01 13:49 | XRAY ---
Indication: Ultrasound guidance for PICC line placement. Initial sonographic imaging of the right upper extremity was performed for localization of patent veins. A patent basilic vein identified above the elbow. Ultrasound guidance was then used for PICC line insertion. Full PICC line insertion is reported separately.
[2021-08-01] MEDS: Flonase NASAL NS SCH (13:56)
[2021-08-01] MEDS: Lantus Insulin SQ SCH (13:57)
[2021-08-01] MEDS: MORPHINE SULFATE 4 MG INJ IV PRN ×2 (15:52→21:12)
[2021-08-01] MEDS: VANCOMYCIN 1.25 GM/250 ML BAG 1.25 GM/250 ML PIGGYBACK IV SCH (21:50)
[2021-08-01] MEDS ORDERED: NON-FORMULARY ITEM (Gabapentin [Gabapentin] 600 MG Tablet) PO SCH (22:00)
[2021-08-02] MEDS: MORPHINE SULFATE 4 MG INJ IV PRN ×2 (01:53→05:52)
[2021-08-02] MEDS ORDERED: MORPHINE SULFATE 2 MG INJ ONE (05:50)
[2021-08-02] MEDS: Zosyn 3.375 GM Vial 3.375 GM in Sodium Chloride 100ML MINI-BAG PLUS 100 ML IV SCH ×3 (05:54→21:38)
[2021-08-02] MEDS: Lactated Ringers 1,000 ML IV SCH ×3 (07:54→16:21)
[2021-08-02] MEDS: HUMALOG SQ PRN ×4 (08:01→21:42)
--- NOTE | 2021-08-02 08:06 | PCM.NOTE ---
Date and Time: 08/02/21742 Subjective Assessment: Patient seen at bedside postoperative day #1 Status post left great toe amputation. Resting comfortably. Complaints of some pain to the operative extremity at this time. He denies any constitutional symptoms of infection. No complaints of calf pain or shortness of breath at the moment. No other pedal complaints at this time Physical Exam - Narrative Narrative Physical Exam: Podiatry Physical Exam Constitutional: On presentation dressing clean dry and intact with minimal strikethrough noted. Vascular DP and PT pulses are palpable minimal remaining cellulitis noted at the periwound edges. No lymphangitis or lymphadenopathy on palpation of the inguinal or popliteal lymph nodes. No proximal streaking noted at this time. Dermatological: Left lower extremity centered: Wound coapt centrally however open at the proximal and distal extents to allow for infection to drain over the course of the next several days periwound erythema and some pain with palpation wound no dusky appearance of the tissue at this time indicating possibility of solely delayed primary closure for successful treatment Neurological: Diminished epicritic sensation intact protopathic sensation Musculoskeletal: Able to wiggle toes negative for calf pain OBJECTIVE DATA Vital Signs: Vital Signs - 24 hr Temp Pulse Resp BP Pulse Ox 08/02/21 07:30 98.1 F 72 18 133/81 97 08/02/21 04:00 97.5 F 75 18 161/91 97 08/02/21 00:00 98.8 F 78 19 138/77 98 08/01/21 20:00 97.5 F 88 20 157/72 96 08/01/21 16:00 98.4 F 76 18 169/105 95 08/01/21 10:10 97.7 F 69 16 135/85 96 08/01/21 09:40 97.7 F 69 16 161/93 97 08/01/21 08:00 97.1 F 75 16 163/95 97 Pain Assessment - Last Documented Pain Intensity 4 Pain Scale Used 0-10 Pain Scale Intake and Output: Intake & Output 07/30/21 07/31/21 08/01/21 08/02/21 11:59 11:59 11:59 11:59 Intake Total 2040 1100 Output Total 1400 2000 Balance 640 -900 Weight 83.5 kg Lab Results: Lab Results-Last 24 Hours 08/01/21 08/01/21 08/01/21 Range/Units 11:50 16:47 20:22 POC Glucometer 167 H 380 H 266 H (74 to 106) mg/dL 08/02/21 Range/Units 06:49 POC Glucometer 321 H (74 to 106) mg/dL Radiology Exams: Radiology Procedures Category Date Time Status FOOT (2 VIEWS) Routine Exams 07/31/21 18:00 Completed FOOT (2 VIEWS) Routine Exams 08/01/21 13:43 Completed GUIDE FOR VASCULAR ACCESS [US] Routine Exams 08/01/21 07:34 Completed PICC LINE PLACEMENT Routine Exams 08/01/21 12:30 Completed Multi-Disciplinary Progress Notes: Multi-Disciplinary Progress Notes 08/01/21 14:18 Physical Therapy Note by Tamara Grider PT. REPORTS L FOOT/GREAT TOE PN IS INCREASING. DISCUSSED EQUIPMENT NEEDS AT D/C. PT. WOULD LIKE TO USE CRUTCHES UPON D/C. PROVIDED PT. W/ [employer] FOR THE WEKEND AND DISCUSSED W/ PT. AND NSG THAT HE IS TO BE PWB L LE ON HEEL ONLY. PT. VERBALIZED UNDERSTANDING. WILL ASSESS APPROPRIATENESS OF CRUTCHES NEXT WEEK. PT. TO HAVE ANOTHER PROCEDURE EARLY NEXT WEEK AND THEN D/C HOME. Initialized on 08/01/21 14:18 - END OF NOTE Assessment/Plan (1) Type 2 diabetes mellitus with left diabetic foot infection Current Visit: Yes Status: Acute Assessment & Plan: Patient examination evaluation. Patient is progressing without significant complication postoperative day #1 Dressings changed revealing uninfected operative extremity with minimal signs of periwound necrosis indicating at this time patient may do well with a delayed primary closure however I would like to see how he responds to antibiotics and allow for any residual soft tissue infection to drain over the course of the next several days Dressings today consisted of Betadine Adaptic 4 x 4 ABD Curlex and Geoff. Patient may be partial weightbearing to the left heel with an assistive device. Patient will become nonweightbearing following the second procedure with a delayed primary closure to the left lower extremity and would prefer nonweightbearing status with touchdown to the left heel. Pain control as previously prescribed. DVT prophylaxis as previosuly prescribed. ABX 1 g vancomycin every 12 and Zosyn 3.375 g every 8 hours until culture and sensitivity has isolated infecting bacteria. Will narrow spectrum at that time. We will follow closely Code(s): E11.628 - TYPE 2 DIABETES MELLITUS WITH OTHER SKIN COMPLICATIONS; L08.9 - LOCAL INFECTION OF THE SKIN AND SUBCUTANEOUS TISSUE, UNSP (2) Osteomyelitis Current Visit: Yes Status: Acute Qualifiers: Laterality: left Code(s): M86.9 - OSTEOMYELITIS, UNSPECIFIED (3) DVT prophylaxis Current Visit: No Status: Acute Code(s): TBX6839 - (4) Uncontrolled type 2 diabetes mellitus Current Visit: No Status: Acute Code(s): E11.65 - TYPE 2 DIABETES MELLITUS WITH HYPERGLYCEMIA
--- NOTE | 2021-08-02 09:28 | PCM.NOTE ---
Date and Time: 08/02/21925 Subjective Assessment: doing ok. s/p toe amputation - Review of Systems Constitutional: No Fever, No Chills Eyes: No Symptoms Ears, Nose, & Throat: No Symptoms Respiratory: No Cough, No Short Of Breath Cardiac: No Chest Pain, No Edema, No Syncope Abdominal/Gastrointestinal: No Abdominal Pain, No Nausea, No Vomiting, No Diarrhea Genitourinary Symptoms: No Dysuria Musculoskeletal: No Back Pain, No Neck Pain Skin: No Rash Neurological: No Dizziness, No Focal Weakness, No Sensory Changes Psychological: No Symptoms Endocrine: No Symptoms Hematologic/Lymphatic: No Symptoms Immunological/Allergic: No Symptoms Objective Exam General Appearance: no apparent distress, alert Neurologic Exam: alert, oriented x 3, cooperative, normal mood/affect, nml cerebellar function, sensation nml, No motor deficits Skin Exam: normal color, warm, dry Eye Exam: PERRL, EOMI, eyes nml inspection Ears, Nose, Throat Exam: normal ENT inspection, pharynx normal, moist mucous membranes Neck Exam: normal inspection, non-tender, supple, full range of motion Respiratory Exam: normal breath sounds, lungs clear, No respiratory distress Cardiovascular Exam: regular rate/rhythm, normal heart sounds Gastrointestinal/Abdomen Exam: soft, No tenderness, No mass Extremity Exam: normal inspection, normal range of motion, amputations, other Back Exam: normal inspection, normal range of motion, No CVA tenderness, No vertebral tenderness Male Genitalia Exam: deferred Rectal Exam: deferred OBJECTIVE DATA Vital Signs: Vital Signs - 24 hr Temp Pulse Resp BP Pulse Ox 08/02/21 07:30 98.1 F 72 18 133/81 97 08/02/21 04:00 97.5 F 75 18 161/91 97 08/02/21 00:00 98.8 F 78 19 138/77 98 08/01/21 20:00 97.5 F 88 20 157/72 96 08/01/21 16:00 98.4 F 76 18 169/105 95 08/01/21 10:10 97.7 F 69 16 135/85 96 08/01/21 09:40 97.7 F 69 16 161/93 97 Pain Assessment - Last Documented Pain Intensity 5 Pain Scale Used 0-10 Pain Scale Intake and Output: Intake & Output 07/30/21 07/31/21 08/01/21 08/02/21 11:59 11:59 11:59 11:59 Intake Total 2040 1100 Output Total 1400 2300 Balance 640 -1200 Weight 83.5 kg Lab Results: Lab Results-Last 24 Hours 08/01/21 08/01/21 08/01/21 Range/Units 11:50 16:47 20:22 POC Glucometer 167 H 380 H 266 H (74 to 106) mg/dL 08/02/21 Range/Units 06:49 POC Glucometer 321 H (74 to 106) mg/dL Radiology Exams: Radiology Procedures Category Date Time Status FOOT (2 VIEWS) Routine Exams 07/31/21 18:00 Completed FOOT (2 VIEWS) Routine Exams 08/01/21 13:43 Completed GUIDE FOR VASCULAR ACCESS [US] Routine Exams 08/01/21 07:34 Completed PICC LINE PLACEMENT Routine Exams 08/01/21 12:30 Completed Multi-Disciplinary Progress Notes: Multi-Disciplinary Progress Notes 08/01/21 14:18 Physical Therapy Note by Tamara Grider PT. REPORTS L FOOT/GREAT TOE PN IS INCREASING. DISCUSSED EQUIPMENT NEEDS AT D/C. PT. WOULD LIKE TO USE CRUTCHES UPON D/C. PROVIDED PT. W/ [employer] FOR THE WEKEND AND DISCUSSED W/ PT. AND NSG THAT HE IS TO BE PWB L LE ON HEEL ONLY. PT. VERBALIZED UNDERSTANDING. WILL ASSESS APPROPRIATENESS OF CRUTCHES NEXT WEEK. PT. TO HAVE ANOTHER PROCEDURE EARLY NEXT WEEK AND THEN D/C HOME. Initialized on 08/01/21 14:18 - END OF NOTE Assessment/Plan (1) Type 2 diabetes mellitus with left diabetic foot infection Current Visit: Yes Status: Acute Assessment & Plan: Last Vital Signs Temp 98.1 F 08/02/21 07:30 Pulse 72 08/02/21 07:30 Resp 18 08/02/21 07:30 BP 133/81 08/02/21 07:30 Pulse Ox 97 08/02/21 07:30 Allergies codeine Adverse Reaction (Severe, Verified 03/25/19 13:04) Vomiting hydrocodone bitartrate [From Vicodin] Adverse Reaction (Severe, Verified 03/25/19 13:04) Vomiting propoxyphene [From Darvocet-N 100] Adverse Reaction (Verified 03/25/19 13:04) Active Medications Ascorbic Acid (Ascorbic Acid 500 Mg Tablet) 1,000 mg PO DAILY AURA Stop: 08/31/21 11:59 Last Admin: 08/01/21 13:48 Dose: 1,000 mg Aspirin (Aspirin 325 Mg Tablet.Ec) 325 mg PO DAILY AURA Stop: 08/31/21 11:59 Last Admin: 08/01/21 13:48 Dose: 325 mg Device (Therapuetic Drug Level Monitor Each) 1 IJ 1XONLY ONE Stop: 08/03/21 09:31 Fluticasone Propionate (Fluticasone Propionate 16 Gm Bottle Nasal [place]) 0 gm NS DAILY AURA Stop: 08/31/21 11:59 Last Admin: 08/01/21 13:56 Dose: 16 gm Gabapentin (Gabapentin 400 Mg Capsule) 1,200 mg PO BID AURA Stop: 08/31/21 11:59 Last Admin: 08/01/21 19:38 Dose: 1,200 mg Piperacillin Sod/Tazobactam (Sod 3.375 gm/ Sodium Chloride) 100 mls @ 200 mls/hr IV Q8HT AURA Stop: 08/03/21 21:59 Last Admin: 08/02/21 05:54 Dose: 200 mls/hr Lactated Ringer's (Lactated Ringers) 1,000 mls @ 100 mls/hr IV .Q10H AURA Stop: 08/31/21 09:59 Last Admin: 08/02/21 09:08 Dose: Not Given Vancomycin HCl (Vancomycin 1.25 Gm/250 Ml Bag) 1.25 gm in 250 mls @ 150 mls/hr IV BID AURA Stop: 08/04/21 21:59 Last Admin: 08/01/21 21:50 Dose: 150 mls/hr Insulin Glargine (Insulin Glargine 1 Unit) 40 unit SQ QAM AURA Stop: 08/31/21 11:59 Last Admin: 08/01/21 13:57 Dose: 40 unit Insulin Human Lispro (Insulin Lispro 1 Unit) 0 unit SQ UD PRN PRN Reason: HYPERGLYCEMIA Stop: 08/30/21 19:17 Last Admin: 08/02/21 08:01 Dose: 6 unit Loratadine (Loratadine 10 Mg Tablet) 10 mg PO QAM AURA Stop: 08/31/21 11:59 Last Admin: 08/01/21 13:48 Dose: 10 mg Morphine Sulfate (Morphine Sulfate 4 Mg/Ml Injection) 4 mg IV Q4H PRN PRN PRN Reason: PAIN Stop: 08/06/21 15:35 Last Admin: 08/02/21 05:52 Dose: 4 mg Intake & Output 08/01/21 08/02/21 11:59 11:59 Intake Total 2040 1100 Output Total 1400 2300 Balance 640 -1200 Weight 83.5 kg Orders 08/01/21 12:00 Ascorbic Acid 500 mg [Vitamin C 500 MG] 1,000 mg PO DAILY Aspirin EC 325 mg [Ecotrin 325 MG] 325 mg PO DAILY Fluticasone Propionate [Flonase NASAL] See Dose Instructions NS DAILY Gabapentin 400 mg [Neurontin 400 MG] 1,200 mg PO BID Insulin Glargine [Lantus Insulin] 40 unit SQ QAM Loratadine 10 mg [Claritin 10 mg] 10 mg PO QAM 08/01/21 15:36 Morphine Sulfate 4 mg Inj 4 mg IV Q4H PRN PRN 08/03/21 09:30 Vancomycin, Trough Urgent Lab Tests 08/01/21 08/01/21 08/01/21 11:50 16:47 20:22 POC Glucometer 167 H 380 H 266 H 08/02/21 06:49 POC Glucometer 321 H Microbiology 08/01/21 08:27 Toe - L Big (Greater) Aerobic Culture Result 1 - Final Not Reportable 08/01/21 08:27 Toe - L Big (Greater) Aerobic Culture Result 2 - Final Not Reportable 08/01/21 08:27 Toe - L Big (Greater) Aerobic Culture Result 3 - Final Not Reportable 08/01/21 08:27 Toe - L Big (Greater) Aerobic Culture Result 4 - Final Not Reportable 08/01/21 08:27 Toe - L Big (Greater) Aerobic Bacterial Sensitivity - Final Not Reportable 08/01/21 08:27 Bone - L Big (Greater) Aerobic Culture Result 1 - Final Not Reportable 08/01/21 08:27 Bone - L Big (Greater) Aerobic Culture Result 2 - Final Not Reportable 08/01/21 08:27 Bone - L Big (Greater) Aerobic Culture Result 3 - Final Not Reportable 08/01/21 08:27 Bone - L Big (Greater) Aerobic Culture Result 4 - Final Not Reportable 08/01/21 08:27 Bone - L Big (Greater) Aerobic Bacterial Sensitivity - Final Not Reportable 08/01/21 08:27 Toe - L Big (Greater) Aerobic Culture Result 1 - Final Not Reportable 08/01/21 08:27 Toe - L Big (Greater) Aerobic Culture Result 2 - Final Not Reportable 08/01/21 08:27 Toe - L Big (Greater) Aerobic Culture Result 3 - Final Not Reportable 08/01/21 08:27 Toe - L Big (Greater) Aerobic Culture Result 4 - Final Not Reportable 08/01/21 08:27 Toe - L Big (Greater) Aerobic Bacterial Sensitivity - Final Not Reportable Code(s): E11.628 - TYPE 2 DIABETES MELLITUS WITH OTHER SKIN COMPLICATIONS; L08.9 - LOCAL INFECTION OF THE SKIN AND SUBCUTANEOUS TISSUE, UNSP (2) IDDM (insulin dependent diabetes mellitus) Current Visit: Yes Status: Acute Code(s): HMS2321 - (3) Osteomyelitis Current Visit: Yes Status: Acute Qualifiers: Laterality: left Code(s): M86.9 - OSTEOMYELITIS, UNSPECIFIED
[2021-08-02] MEDS: Flonase NASAL NS SCH (09:31)
[2021-08-02] MEDS: VANCOMYCIN 1.25 GM/250 ML BAG 1.25 GM/250 ML PIGGYBACK IV SCH ×2 (09:31→22:16)
[2021-08-02] MEDS: Neurontin 400 MG PO SCH ×2 (09:32→21:42)
[2021-08-02] MEDS: Vitamin C 500 MG PO SCH (09:32)
[2021-08-02] MEDS: Ecotrin 325 MG PO SCH (09:32)
[2021-08-02] MEDS: CLARITIN 10 MG PO SCH (09:32)
[2021-08-02] MEDS: Lantus Insulin SQ SCH (09:32)
[2021-08-02] MEDS ORDERED: NON-FORMULARY ITEM (Ascorbic Acid [Vitamin C] 1,000 MG Tablet) PO SCH (10:00)
[2021-08-02] MEDS ORDERED: Flonase NASAL NS SCH (10:00)
[2021-08-02] MEDS: MORPHINE SULFATE 2 MG INJ IV PRN ×4 (10:18→22:30)
[2021-08-03] MEDS: MORPHINE SULFATE 2 MG INJ IV PRN ×3 (03:36→21:25)
[2021-08-03] MEDS: Zosyn 3.375 GM Vial 3.375 GM in Sodium Chloride 100ML MINI-BAG PLUS 100 ML IV SCH ×3 (05:53→21:42)
--- NOTE | 2021-08-03 07:10 | PCM.NOTE ---
Date and Time: 08/03/21708 Subjective Assessment: doing ok - Review of Systems Constitutional: No Fever, No Chills Eyes: No Symptoms Ears, Nose, & Throat: No Symptoms Respiratory: No Cough, No Short Of Breath Cardiac: No Chest Pain, No Edema, No Syncope Abdominal/Gastrointestinal: No Abdominal Pain, No Nausea, No Vomiting, No Diarrhea Genitourinary Symptoms: No Dysuria Musculoskeletal: No Back Pain, No Neck Pain Skin: No Rash Neurological: No Dizziness, No Focal Weakness, No Sensory Changes Psychological: No Symptoms Endocrine: No Symptoms Hematologic/Lymphatic: No Symptoms Immunological/Allergic: No Symptoms Objective Exam General Appearance: no apparent distress, alert Neurologic Exam: alert, oriented x 3, cooperative, normal mood/affect, nml cerebellar function, sensation nml, No motor deficits Skin Exam: normal color, warm, dry Eye Exam: PERRL, EOMI, eyes nml inspection Ears, Nose, Throat Exam: normal ENT inspection, pharynx normal, moist mucous membranes Neck Exam: normal inspection, non-tender, supple, full range of motion Respiratory Exam: normal breath sounds, lungs clear, No respiratory distress Cardiovascular Exam: regular rate/rhythm, normal heart sounds Gastrointestinal/Abdomen Exam: soft, No tenderness, No mass Extremity Exam: normal inspection, normal range of motion Back Exam: normal inspection, normal range of motion, No CVA tenderness, No vertebral tenderness Male Genitalia Exam: deferred Rectal Exam: deferred OBJECTIVE DATA Vital Signs: Vital Signs - 24 hr Temp Pulse Resp BP Pulse Ox 08/03/21 03:45 98.2 F 73 18 150/84 99 08/02/21 23:47 97.8 F 72 18 146/87 97 08/02/21 19:59 97.7 F 83 20 155/82 96 08/02/21 16:00 98 F 77 16 144/78 96 08/02/21 11:15 97.8 F 80 18 134/82 95 08/02/21 07:30 98.1 F 72 18 133/81 97 Pain Assessment - Last Documented Pain Intensity 2 Pain Scale Used 0-10 Pain Scale Intake and Output: Intake & Output 07/31/21 08/01/21 08/02/21 08/03/21 11:59 11:59 11:59 11:59 Intake Total 2040 1340 2517 Output Total 1400 3200 5 Balance 640 -1860 492 Weight 83.5 kg Lab Results: Lab Results-Last 24 Hours 08/02/21 08/02/21 08/02/21 Range/Units 11:35 17:00 20:30 POC Glucometer 330 H 253 H 258 H (74 to 106) mg/dL 08/03/21 Range/Units 06:55 POC Glucometer 285 H (74 to 106) mg/dL Radiology Exams: Radiology Procedures Category Date Time Status FOOT (2 VIEWS) Routine Exams 08/01/21 13:43 Completed GUIDE FOR VASCULAR ACCESS [US] Routine Exams 08/01/21 07:34 Completed PICC LINE PLACEMENT Routine Exams 08/01/21 12:30 Completed Assessment/Plan (1) Type 2 diabetes mellitus with left diabetic foot infection Current Visit: Yes Status: Acute Assessment & Plan: Chief Complaint Diagnosis OSTEOMYELITIS LEFT FOOT Allergies Allergy/AdvReac Type Severity Reaction Status Date / Time codeine AdvReac Severe Vomiting Verified 03/25/19 13:04 hydrocodone bitartrate AdvReac Severe Vomiting Verified 03/25/19 13:04 [From Vicodin] propoxyphene AdvReac Verified 03/25/19 13:04 [From Darvocet-N 100] Vital Signs (Last 24 hours) Temp Pulse Resp BP Pulse Ox 08/03/21 03:45 98.2 F 73 18 150/84 99 08/02/21 23:47 97.8 F 72 18 146/87 97 08/02/21 19:59 97.7 F 83 20 155/82 96 08/02/21 16:00 98 F 77 16 144/78 96 08/02/21 11:15 97.8 F 80 18 134/82 95 08/02/21 07:30 98.1 F 72 18 133/81 97 Home Medications Medication Instructions Recorded Confirmed Last Taken Type Ascorbic Acid [Vitamin C] 1,000 mg PO DAILY 07/31/21 07/31/21 Unknown History Current Medications Generic Name Dose Route Start Last Admin Trade Name Freq PRN Reason Stop Dose Admin Ascorbic Acid 1,000 mg 08/01/21 12:00 08/02/21 09:32 Ascorbic Acid 500 Mg Tablet PO 08/31/21 11:59 1,000 mg DAILY AURA Administration Aspirin 325 mg 08/01/21 12:00 08/02/21 09:32 Aspirin 325 Mg Tablet.Ec PO 08/31/21 11:59 325 mg DAILY AURA Administration Device 1 08/03/21 09:30 Therapuetic Drug Level Monitor Each IJ 08/03/21 09:31 1XONLY ONE Fluticasone Propionate 0 gm 08/01/21 12:00 08/02/21 09:31 Fluticasone Propionate 16 Gm Bottle Nasal [place] NS 08/31/21 11:59 1 gm DAILY AURA Administration Gabapentin 1,200 mg 08/01/21 12:00 08/02/21 21:42 Gabapentin 400 Mg Capsule PO 08/31/21 11:59 1,200 mg BID AURA Administration Heparin Sodium (Beef Lung) 500 units 08/02/21 22:36 08/03/21 03:39 Heparin Lock Flush Pf 500 Units/5 Ml Syringe PICC 09/01/21 22:35 500 units PRN PRN Administration IV PORT FLUSH Piperacillin Sod/Tazobactam 100 mls @ 200 mls/hr 07/31/21 22:00 08/03/21 05:53 Sod 3.375 gm/ Sodium Chloride IV 08/03/21 21:59 200 mls/hr Q8HT AURA Administration Lactated Ringer's 1,000 mls @ 100 mls/hr 08/01/21 10:00 08/02/21 16:21 Lactated Ringers IV 08/31/21 09:59 Not Given .Q10H AURA Vancomycin HCl 1.25 gm in 250 mls @ 150 mls/hr 08/01/21 22:00 08/02/21 22:16 Vancomycin 1.25 Gm/250 Ml Bag IV 08/04/21 21:59 150 mls/hr BID AURA Administration Insulin Glargine 40 unit 08/01/21 12:00 08/02/21 09:32 Insulin Glargine 1 Unit SQ 08/31/21 11:59 40 unit QAM AURA Administration Insulin Human Lispro 0 unit 07/31/21 19:18 08/02/21 21:42 Insulin Lispro 1 Unit SQ 08/30/21 19:17 4 unit UD PRN Administration HYPERGLYCEMIA Loratadine 10 mg 08/01/21 12:00 08/02/21 09:32 Loratadine 10 Mg Tablet PO 08/31/21 11:59 10 mg QAM AURA Administration Morphine Sulfate 4 mg 08/02/21 10:06 08/03/21 03:36 Morphine Sulfate 2 Mg/Ml Inj IV 08/07/21 10:05 4 mg Q4H PRN PRN Administration PAIN Discontinued Medications Generic Name Dose Route Start Last Admin Trade Name Vickie PRN Reason Stop Dose Admin Hydrocodone Bitart/Acetaminophen 1 tab 08/01/21 11:14 Hydrocodone/Apap 5/325 Mg Tablet PO 08/06/21 11:13 Q4H PRN PRN PAIN Bupivacaine HCl Confirm 08/01/21 06:53 Bupivacaine Hcl/Pf 50 Mg/10 Ml Vial Administered 08/01/21 06:54 Dose 100 mg IJ .STK-MED ONE Fentanyl Citrate Confirm 08/01/21 07:35 Fentanyl Citrate 100 Mcg/2 Ml* Vial Administered 08/01/21 07:36 Dose 100 mcg .ROUTE .STK-MED ONE Gabapentin 1,200 mg 07/31/21 22:30 07/31/21 22:36 Gabapentin 300 Mg Capsule PO 07/31/21 22:31 1,200 mg ONCE ONE Administration Heparin Sodium (Beef Lung) 500 units 08/01/21 12:38 Heparin Lock Flush Pf 500 Units/5 Ml Syringe IV 08/01/21 12:39 .STK-MED ONE Heparin Sodium (Beef Lung) Confirm 08/02/21 22:21 Heparin Lock Flush Pf 500 Units/5 Ml Syringe Administered 08/02/21 22:22 Dose 500 units .ROUTE .STK-MED ONE Hydromorphone HCl Confirm 08/01/21 09:09 Hydromorphone 1 Mg/1ml Inj 1 Mg/Ml Syringe Administered 08/01/21 09:10 Dose 1 mg .ROUTE .STK-MED ONE Vancomycin HCl 1 gm in 200 mls @ 125 mls/hr 07/31/21 22:00 08/01/21 12:11 Vancomycin 1 Gram/200 Ml Bag IV 08/30/21 21:59 Not Given BID AURA Heparin Sodium/Sodium Chloride 500 mls @ ud 08/01/21 12:38 Heparin-Ns 1,000 Units/500 Ml IV 08/01/21 12:39 .STK-MED ONE Insulin Human Lispro 10 unit 08/01/21 04:23 08/01/21 04:29 Insulin Lispro 1 Unit SQ 08/01/21 04:24 10 unit STAT ONE Administration Ketamine HCl Confirm 08/01/21 07:45 Ketamine Hcl 50 Mg/Ml Administered 08/01/21 07:46 Dose 20 mg .ROUTE .STK-MED ONE Lidocaine HCl Confirm 08/01/21 06:53 Lidocaine Hcl 1% 20 Ml Mdv 20 Ml Ml Administered 08/01/21 06:54 Dose 20 ml .ROUTE .STK-MED ONE Midazolam HCl Confirm 08/01/21 07:45 Midazolam Hcl 2 Mg/2 Ml Vial Administered 08/01/21 07:46 Dose 2 mg .ROUTE .STK-MED ONE Morphine Sulfate 4 mg 08/01/21 15:36 08/02/21 05:52 Morphine Sulfate 4 Mg/Ml Injection IV 08/06/21 15:35 4 mg Q4H PRN PRN Administration PAIN Morphine Sulfate Confirm 08/02/21 05:50 Morphine Sulfate 2 Mg/Ml Inj Administered 08/02/21 05:51 Dose 4 mg .ROUTE .STK-MED ONE Non-Formulary Medication 1 units 08/01/21 11:00 Insulin Aspart [Novolog Insulin] SQ 08/31/21 10:59 UD AURA Propofol Confirm 08/01/21 07:34 Propofol 10 Mg/Ml 20ml Vial Administered 08/01/21 07:35 Dose 200 mg IV .STK-MED ONE Propofol Confirm 08/01/21 08:22 Propofol 10 Mg/Ml 20ml Vial Administered 08/01/21 08:23 Dose 200 mg IV .STK-MED ONE Intake & Output (Last 24 hours) 07/31/21 08/01/21 08/02/21 08/03/21 11:59 11:59 11:59 11:59 Intake Total 2040 1340 2517 Output Total 1400 3200 2025 Balance 640 -1860 492 Weight 83.5 kg Microbiology Results (Last 24 hours) 08/01/21 08:27 Toe - L Big (Greater) Aerobic Culture - Pending 08/01/21 08:27 Toe - L Big (Greater) Aerobic Organism ID Result 1 - Final Not Reportable 08/01/21 08:27 Toe - L Big (Greater) Anaerobic Culture - Pending 08/01/21 08:27 Toe - L Big (Greater) Anaerobic Culture - Final Not Reportable 08/01/21 08:27 Toe - L Big (Greater) Anaerobic Culture Result 1 - Final Not Reportable 08/01/21 08:27 Toe - L Big (Greater) Anaerobic Culture Result 3 - Final Not Reportable 08/01/21 08:27 Toe - L Big (Greater) Anaerobic Culture Result 4 - Final Not Reportable 08/01/21 08:27 Toe - L Big (Greater) Anaerobic Bacterial Sensitivity - Final Not Reportable 08/01/21 08:27 Bone - L Big (Greater) Aerobic Culture - Pending 08/01/21 08:27 Bone - L Big (Greater) Aerobic Organism ID Result 1 - Final Not Reportable 08/01/21 08:27 Bone - L Big (Greater) Anaerobic Culture - Pending 08/01/21 08:27 Bone - L Big (Greater) Anaerobic Culture - Final Not Reportable 08/01/21 08:27 Bone - L Big (Greater) Anaerobic Culture Result 1 - Final Not Reportable 08/01/21 08:27 Bone - L Big (Greater) Anaerobic Culture Result 3 - Final Not Reportable 08/01/21 08:27 Bone - L Big (Greater) Anaerobic Culture Result 4 - Final Not Reportable 08/01/21 08:27 Bone - L Big (Greater) Anaerobic Bacterial Sensitivity - Diann l Not Reportable 08/01/21 08:27 Toe - L Big (Greater) Aerobic Culture - Pending 08/01/21 08:27 Toe - L Big (Greater) Aerobic Organism ID Result 1 - Final Not Reportable 08/01/21 08:27 Toe - L Big (Greater) Anaerobic Culture - Pending 08/01/21 08:27 Toe - L Big (Greater) Anaerobic Culture - Final Not Reportable 08/01/21 08:27 Toe - L Big (Greater) Anaerobic Culture Result 1 - Final Not Reportable 08/01/21 08:27 Toe - L Big (Greater) Anaerobic Culture Result 3 - Final Not Reportable 08/01/21 08:27 Toe - L Big (Greater) Anaerobic Culture Result 4 - Final Not Reportable 08/01/21 08:27 Toe - L Big (Greater) Anaerobic Bacterial Sensitivity - Final Not Reportable 07/31/21 21:15 Skin - L Big (Greater) Wound Culture - Preliminary ORGANISMS ISOLATED ARE CONSISTENT WITH NORMAL SKIN DEBRA LIGHT GROWTH, NO PREDOMINANT ORGANISM Laboratory Results (Last 24 hours) 08/03/21 08/02/21 08/02/21 06:55 20:30 17:00 POC Glucometer 285 H 258 H 253 H 08/02/21 11:35 POC Glucometer 330 H Orders (Last 24 hours) Category Date Time Status POCT GLUCOSE Stat Lab 08/02/21 06:49 Completed POCT GLUCOSE Stat Lab 08/02/21 11:35 Completed POCT GLUCOSE Stat Lab 08/02/21 17:00 Completed POCT GLUCOSE Stat Lab 08/02/21 20:30 Completed POCT GLUCOSE Stat Lab 08/03/21 06:55 Completed Vancomycin, Trough Urgent Lab 08/03/21 09:30 Ordered Heparin Flush 500 units/5 ml [Heparin Lock Flush 100 Med 08/02/21 22:21 Discontinued Units/ml 5ml Syringe] 500 units .ROUTE .STK-MED ONE Heparin Flush 500 units/5 ml [Heparin Lock Flush 100 Med 08/02/21 22:36 Ordered Units/ml 5ml Syringe] 500 units PICC PRN PRN Morphine Sulfate 2 mg Inj Med 08/02/21 10:06 Active 4 mg IV Q4H PRN PRN Therapuetic Drug Level Monitor [Trough Drug Levels] Med 08/03/21 09:30 Once 1 IJ 1XONLY ONE Patient Care Notes (Last 24 hours) 08/03/21 00:43 Nursing Note by Blaise Naranjo Only gave 350 ml in IV antibiotics this shift at this point. IV does not appear to have been cleared from previous shift. Initialized on 08/03/21 00:43 - END OF NOTE Code(s): E11.628 - TYPE 2 DIABETES MELLITUS WITH OTHER SKIN COMPLICATIONS; L08.9 - LOCAL INFECTION OF THE SKIN AND SUBCUTANEOUS TISSUE, UNSP (2) IDDM (insulin dependent diabetes mellitus) Current Visit: Yes Status: Acute Code(s): ERA4395 - (3) Osteomyelitis Current Visit: Yes Status: Acute Qualifiers: Laterality: left Code(s): M86.9 - OSTEOMYELITIS, UNSPECIFIED
[2021-08-03] MEDS: Lactated Ringers 1,000 ML IV SCH ×2 (07:16→14:16)
[2021-08-03] MEDS: HUMALOG SQ PRN ×3 (07:31→17:10)
--- NOTE | 2021-08-03 07:35 | PCM.NOTE ---
Date and Time: 08/03/21727 Subjective Assessment: Patient seen at bedside postoperative day #2 Status post left great toe amputation. Resting comfortably. Complaints of some pain to the operative extremity at this time. He denies any constitutional symptoms of infection. No complaints of calf pain or shortness of breath at the moment. No other pedal complaints at this time Physical Exam - Narrative Narrative Physical Exam: Podiatry Physical Exam Podiatry Physical Exam Constitutional: On presentation dressing clean dry and intact negative for strikethrough on primary or secondary dressings.. Vascular DP and PT pulses are palpable minimal remaining cellulitis noted at the periwound edges. blanchable skin edge. Minimal peripheral wound necrosis noted. No lymphangitis or lymphadenopathy on palpation of the inguinal or popliteal lymph nodes. No proximal streaking noted at this time. Dermatological: Left lower extremity centered: Wound coapt centrally however open at the proximal and distal extents to allow for infection to drain over the course of the next several days periwound erythema and some pain with palpation wound no dusky appearance of the tissue at this time indicating increased possibility of solely delayed primary closure for successful treatment Neurological: Diminished epicritic sensation intact protopathic sensation Musculoskeletal: Able to wiggle toes negative for calf pain OBJECTIVE DATA Vital Signs: Vital Signs - 24 hr Temp Pulse Resp BP BP Pulse Ox 08/03/21 07:16 97.5 F 71 18 151/89 97 08/03/21 03:45 98.2 F 73 18 150/84 99 08/02/21 23:47 97.8 F 72 18 146/87 97 08/02/21 19:59 97.7 F 83 20 155/82 96 08/02/21 16:00 98 F 77 16 144/78 96 08/02/21 11:15 97.8 F 80 18 134/82 95 08/02/21 07:30 98.1 F 72 18 133/81 97 Pain Assessment - Last Documented Pain Intensity 2 Pain Scale Used 0-10 Pain Scale Intake and Output: Intake & Output 07/31/21 08/01/21 08/02/21 08/03/21 11:59 11:59 11:59 11:59 Intake Total 2040 1340 2517 Output Total 8127 3200 2675 Balance 640 -1860 -158 Weight 83.5 kg Lab Results: Lab Results-Last 24 Hours 10/08/02/21 08/02/21 Range/Units 11:35 17:00 20:30 POC Glucometer 330 H 253 H 258 H (74 to 106) mg/dL 08/03/21 Range/Units 06:55 POC Glucometer 285 H (74 to 106) mg/dL Radiology Exams: Radiology Procedures Category Date Time Status FOOT (2 VIEWS) Routine Exams 08/01/21 13:43 Completed GUIDE FOR VASCULAR ACCESS [US] Routine Exams 08/01/21 07:34 Completed PICC LINE PLACEMENT Routine Exams 08/01/21 12:30 Completed Assessment/Plan (1) Type 2 diabetes mellitus with left diabetic foot infection Current Visit: Yes Status: Acute Assessment & Plan: Patient examination evaluation. Patient is progressing without significant complication postoperative day #2 Dressings changed revealing uninfected operative extremity with minimal signs of periwound necrosis indicating at this time patient may do well with a delayed primary closure however I would like to see how he responds to antibiotics and allow for any residual soft tissue infection to drain over the course of the next several days Dressings today consisted of Betadine Adaptic 4 x 4 ABD Curlex and Geoff. Patient may be partial weight bearing to the left heel with an assistive device. Patient will become non-weight bearing following the second procedure with a delayed primary closure to the left lower extremity and would prefer nonweightbearing status with touchdown to the left heel. Pain control: will attempt alternating ultram 50 mg q 4h with IV Pain control. DVT prophylaxis as previosuly prescribed. ABX 1 g vancomycin every 12 and Zosyn 3.375 g every 8 hours until culture and sensitivity has isolated infecting bacteria. Will narrow spectrum at that time. Culture obtained intra-operative likely more consistent with acute on chronic infection. Will continue empiric therapy until those cultures have been assessed. Current culture demonstrating normal skin roscoe- likely due to improper collection methods. We will follow closely Code(s): E11.628 - TYPE 2 DIABETES MELLITUS WITH OTHER SKIN COMPLICATIONS; L08.9 - LOCAL INFECTION OF THE SKIN AND SUBCUTANEOUS TISSUE, UNSP (2) Osteomyelitis Current Visit: Yes Status: Acute Qualifiers: Osteomyelitis type: chronic, with draining sinus Laterality: left Code(s): M86.9 - OSTEOMYELITIS, UNSPECIFIED (3) DVT prophylaxis Current Visit: No Status: Acute Code(s): RIQ2250 - (4) Uncontrolled type 2 diabetes mellitus Current Visit: Yes Status: Acute Code(s): E11.65 - TYPE 2 DIABETES MELLITUS WITH HYPERGLYCEMIA
[2021-08-03] MEDS: Neurontin 400 MG PO SCH ×2 (09:16→21:25)
[2021-08-03] MEDS: Lantus Insulin SQ SCH (09:16)
[2021-08-03] MEDS: Flonase NASAL NS SCH (09:16)
[2021-08-03] MEDS: CLARITIN 10 MG PO SCH (09:16)
[2021-08-03] MEDS: Ecotrin 325 MG PO SCH (09:16)
[2021-08-03] MEDS: Vitamin C 500 MG PO SCH (09:16)
[2021-08-03] MEDS ORDERED: TROUGH DRUG LEVELS IJ ONE (09:30)
[2021-08-03] MEDS: VANCOMYCIN 1.25 GM/250 ML BAG 1.25 GM/250 ML PIGGYBACK IV SCH ×2 (10:17→21:43)
[2021-08-03] MEDS: ULTRAM 50 MG PO PRN ×2 (11:38→16:02)
[2021-08-04] MEDS: ULTRAM 50 MG PO PRN ×2 (03:54→08:23)
[2021-08-04 05:26] LABS: Hematocrit 37.2 % (42-50); Hemoglobin 12.2 gm/dl (12.5-18.0); Mean Cell Volume 90.1 fl (78-100); Mean Corpuscular Hemoglobin 29.5 pg (26-32); Mean Corpuscular Hgb Concent. 32.8 g/dl (32-36); Mean Platelet Volume 10.5 fl (7.5-11.0); Platelet Count 228 K/mm3 (150-450); Red Blood Count 4.13 M/mm3 (4.1-5.6); Red Cell Distribution Width 13.9 % (11.5-14.0); White Blood Count 5.8 K/mm3 (4.0-10.5)
[2021-08-04] MEDS: Zosyn 3.375 GM Vial 3.375 GM in Sodium Chloride 100ML MINI-BAG PLUS 100 ML IV SCH ×3 (05:33→21:10)
[2021-08-04 05:47] LABS: ALBUMIN 3.6 g/dL (3.5-5.0); ALKALINE PHOSPHATASE 82 U/L (38-126); ANION GAP 12.7 MEQ/L (5-15); BLOOD UREA NITROGEN 16 mg/dL (9-20); CHLORIDE 103 mmol/L (98-107); Calcium 9.3 mg/dL (8.4-10.2); Carbon Dioxide 24 mmol/L (22-30); Creatinine 1 0.76 mg/dL (0.66-1.25); EST GLOMERULAR FILTRATION RATE > 60.0 ML/MIN; Glucose 315 mg/dL (74-106); Potassium 4.4 mmol/L (3.5-5.1); SGOT/AST 21 U/L (17-59); SGPT/ALT 16 U/L (0-50); SODIUM 135 mmol/L (137-145); Total Protein 6.3 g/dL (6.3-8.2)
[2021-08-04] MEDS: HUMALOG SQ PRN ×2 (08:19→21:09)
[2021-08-04] MEDS: CLARITIN 10 MG PO SCH (09:48)
[2021-08-04] MEDS: Vitamin C 500 MG PO SCH (09:48)
[2021-08-04] MEDS: Neurontin 400 MG PO SCH ×2 (09:48→21:09)
[2021-08-04] MEDS: Lantus Insulin SQ SCH (09:48)
[2021-08-04] MEDS: Ecotrin 325 MG PO SCH (09:48)
[2021-08-04] MEDS: Flonase NASAL NS SCH (09:51)
[2021-08-04] MEDS: VANCOMYCIN 1.25 GM/250 ML BAG 1.25 GM/250 ML PIGGYBACK IV SCH ×2 (11:24→21:43)
--- NOTE | 2021-08-04 12:30 | PCM.NOTE ---
Date and Time: 08/04/21 1226 Subjective Assessment: Patient seen at bedside postoperative day #3 Status post left great toe amputation. Resting comfortably. Complaints of some pain to the operative extremity at this time. He denies any constitutional symptoms of infection. No complaints of calf pain or shortness of breath at the moment. No other pedal co mplaints at this time Physical Exam - Narrative Narrative Physical Exam: Podiatry Physical Exam Constitutional: On presentation dressing clean dry and intact negative for strikethrough on primary or secondary dressings.. Vascular DP and PT pulses are palpable minimal remaining cellulitis noted at the periwound edges. blanchable skin edge. Minimal peripheral wound necrosis noted. No lymphangitis or lymphadenopathy on palpation of the inguinal or popliteal lymph nodes. No proximal streaking noted at this time. Dermatological: Left lower extremity centered: Wound coapt centrally however open at the proximal and distal extents to allow for infection to drain over the course of the next several days periwound erythema and some pain with palpation wound no dusky appearance of the tissue at this time indicating increased possibility of solely delayed primary closure for successful treatment Neurological: Diminished epicritic sensation intact protopathic sensation Musculoskeletal: Able to wiggle toes negative for calf pain OBJECTIVE DATA Vital Signs: Vital Signs - 24 hr Temp Pulse Resp BP Pulse Ox 08/04/21 07:37 98.2 F 75 16 176/79 95 08/04/21 03:50 98.6 F 78 16 156/89 98 08/03/21 19:37 97.7 F 79 18 169/89 97 08/03/21 16:00 97.3 F 72 16 128/89 96 Pain Assessment - Last Documented Pain Intensity 4 Pain Scale Used 0-10 Pain Scale Intake and Output: Intake & Output 08/02/21 08/03/21 08/04/21 08/05/21 11:59 11:59 11:59 11:59 Intake Total 1340 3217 1790 Output Total 3200 3325 1850 Balance -1860 -108 -60 Weight 83.5 kg Lab Results: Lab Results-Last 24 Hours 08/03/21 08/03/21 08/04/21 Range/Units 16:54 20:26 04:44 WBC 5.8 (4.0-10.5) K/mm3 RBC 4.13 (4.1-5.6) M/mm3 Hgb 12.2 L (12.5-18.0) gm/dl Hct 37.2 L (42-50) % MCV 90.1 (78-100) fl MCH 29.5 (26-32) pg MCHC 32.8 (32-36) g/dl RDW 13.9 (11.5-14.0) % Plt Count 228 (150-450) K/mm3 MPV 10.5 (7.5-11.0) fl Sodium (137-145) mmol/L Potassium (3.5-5.1) mmol/L Chloride (98-107) mmol/L Carbon Dioxide (22-30) mmol/L Anion Gap (5-15) MEQ/L BUN (9-20) mg/dL Creatinine (0.66-1.25) mg/dL Estimated GFR ML/MIN Glucose (74-106) mg/dL POC Glucometer 210 H 310 H (74 to 106) mg/dL Calcium (8.4-10.2) mg/dL Total Bilirubin (0.2-1.3) mg/dL AST (17-59) U/L ALT (0-50) U/L Alkaline Phosphatase (38-126) U/L Serum Total Protein (6.3-8.2) g/dL Albumin (3.5-5.0) g/dL 08/04/21 08/04/21 08/04/21 Range/Units 04:44 07:10 11:47 WBC (4.0-10.5) K/mm3 RBC (4.1-5.6) M/mm3 Hgb (12.5-18.0) gm/dl Hct (42-50) % MCV (78-100) fl MCH (26-32) pg MCHC (32-36) g/dl RDW (11.5-14.0) % Plt Count (150-450) K/mm3 MPV (7.5-11.0) fl Sodium 135 L (137-145) mmol/L Potassium 4.4 (3.5-5.1) mmol/L Chloride 103 (98-107) mmol/L Carbon Dioxide 24 (22-30) mmol/L Anion Gap 12.7 (5-15) MEQ/L BUN 16 (9-20) mg/dL Creatinine 0.76 (0.66-1.25) mg/dL Estimated GFR > 60.0 ML/MIN Glucose 315 H (74-106) mg/dL POC Glucometer 316 H 191 H (74 to 106) mg/dL Calcium 9.3 (8.4-10.2) mg/dL Total Bilirubin 0.90 (0.2-1.3) mg/dL AST 21 (17-59) U/L ALT 16 (0-50) U/L Alkaline Phosphatase 82 (38-126) U/L Serum Total Protein 6.3 (6.3-8.2) g/dL Albumin 3.6 (3.5-5.0) g/dL Assessment/Plan (1) Type 2 diabetes mellitus with left diabetic foot infection Current Visit: Yes Status: Acute Assessment & Plan: Patient examination evaluation. Patient is progressing without significant complication postoperative day #3 Dressings changed revealing uninfected operative extremity with minimal signs of periwound necrosis indicating at this time patient may do well with a delayed primary closure however I would like to see how he responds to antibiotics and allow for any residual soft tissue infection to drain over the course of the next several days Dressings today consisted of Betadine Adaptic 4 x 4 ABD Curlex and Geoff. Patient may be partial weight bearing to the left heel with an assistive device. Patient will become non-weight bearing following the second procedure with a delayed primary closure to the left lower extremity and would prefer nonweightbearing status with touchdown to the left heel. Pain control: will attempt alternating ultram 50 mg q 4h with IV Pain control. DVT prophylaxis as previosuly prescribed. ABX 1 g vancomycin every 12 and Zosyn 3.375 g every 8 hours until culture and sensitivity has isolated infecting bacteria. Will narrow spectrum at that time. Culture obtained intra-operative likely more consistent with acute on chronic infection. Will continue empiric therapy until those cultures have been assessed. Current culture demonstrating normal skin roscoe- likely due to improper collection methods. Will return to OR tomorrow afternoon for likely repeat incision and drainage with possible bone debridement and delayed primary closure. NPO after breakfast tomorrow AM 0800. Consent for incision drainage with possible bone debridement and delayed primary closure. Will plan for d/c following procedure however awaiting intra-operative deep tissue cultures to begin narrowing abx regimen. We will follow closely Code(s): E11.628 - TYPE 2 DIABETES MELLITUS WITH OTHER SKIN COMPLICATIONS; L08.9 - LOCAL INFECTION OF THE SKIN AND SUBCUTANEOUS TISSUE, UNSP (2) Osteomyelitis Current Visit: Yes Status: Acute Qualifiers: Osteomyelitis type: chronic, with draining sinus Laterality: left Code(s): M86.9 - OSTEOMYELITIS, UNSPECIFIED (3) DVT prophylaxis Current Visit: No Status: Acute Code(s): NHX7643 - (4) Uncontrolled type 2 diabetes mellitus Current Visit: Yes Status: Acute Code(s): E11.65 - TYPE 2 DIABETES MELLITUS WITH HYPERGLYCEMIA
[2021-08-05] MEDS: Zosyn 3.375 GM Vial 3.375 GM in Sodium Chloride 100ML MINI-BAG PLUS 100 ML IV SCH ×3 (05:16→22:42)
[2021-08-05] MEDS: VANCOMYCIN 1.25 GM/250 ML BAG 1.25 GM/250 ML PIGGYBACK IV SCH ×2 (10:17→23:23)
[2021-08-05] MEDS: Neurontin 400 MG PO SCH ×2 (10:19→22:43)
[2021-08-05] MEDS: CLARITIN 10 MG PO SCH (10:19)
[2021-08-05] MEDS: HUMALOG SQ PRN ×2 (12:37→22:43)
[2021-08-05] MEDS ORDERED: Lactated Ringers 1,000 ML IV ONE (14:28)
[2021-08-05] MEDS ORDERED: XYLOCAINE 1% HCL 20 ML MDV ONE (14:28)
[2021-08-05] MEDS ORDERED: BUPIVACAINE 0.5% VIAL IJ ONE (14:28)
[2021-08-05] MEDS: Flonase NASAL NS SCH (14:39)
[2021-08-05] MEDS: Lantus Insulin SQ SCH (14:39)
[2021-08-05] MEDS ORDERED: DIPRIVAN 200 MG/20 ML IV ONE ×2 (14:39→15:25)
[2021-08-05] MEDS: Vitamin C 500 MG PO SCH (14:39)
[2021-08-05] MEDS ORDERED: Ketamine HCl 50 MG/ML ONE (14:41)
[2021-08-05] MEDS ORDERED: Versed 2 MG/2 ML Injection ONE (14:42)
[2021-08-05] MEDS ORDERED: SUBLIMAZE 100 MCG/2 ML ONE (14:52)
--- NOTE | 2021-08-05 16:06 | PCM.NOTE ---
Podiatry Post-Op Plan Podiatry Post-Op Plan: ANTIBIOTICS: Vancomycin 1 g IV every 12, Zosyn 3.375 g every 8 hours PAIN CONTROL: Ultram 50 mg every 6 hours for moderate pain. Morphine 2 mg q4h severe pain. Discharge with Ultram 50 mg q6h Dispensed 28 VTE PROPHYLAXIS: Previous history of DVT discontinue aspirin 325 mg p.o. daily substitute for Lovenox 40 mg daily. SCD and compression hose to non op leg. Discharge with Xarelto 10mg daily for 30 days. DRESSINGS: Dressing to remain clean and dry. Reinforce with Kerlix/TORITO as necessary. Diet: Discontinue n.p.o. order. Diabetic carb controlled diet 1800 sobia ACTIVITY: Nonweightbearing to the left lower extremity at this time with the assistance of crutches THERAPIES: PT/OT consult for gait training, assistive device training, and assessment of functional status with NWB to the Left. Incentive Spirometry. PLACEMENT: Will hold on discharge at this time awaiting finalization on cultures for narrowing antibiotic therapy and determining if 2 weeks versus 6 weeks of IV antibiotics through PICC line.
[2021-08-05] MEDS: ULTRAM 50 MG PO PRN ×2 (16:37→23:29)
[2021-08-05] MEDS: Ecotrin 325 MG PO SCH (16:38)
--- NOTE | 2021-08-05 17:56 | PCM.NOTE ---
Date and Time: 08/05/211755 Subjective Assessment: s/p surgery. doing ok - Review of Systems Constitutional: No Fever, No Chills Eyes: No Symptoms Ears, Nose, & Throat: No Symptoms Respiratory: No Cough, No Short Of Breath Cardiac: No Chest Pain, No Edema, No Syncope Abdominal/Gastrointestinal: No Abdominal Pain, No Nausea, No Vomiting, No Diarrhea Genitourinary Symptoms: No Dysuria Musculoskeletal: No Back Pain, No Neck Pain Skin: No Rash Neurological: No Dizziness, No Focal Weakness, No Sensory Changes Psychological: No Symptoms Endocrine: No Symptoms Hematologic/Lymphatic: No Symptoms Immunological/Allergic: No Symptoms Objective Exam General Appearance: no apparent distress, alert Neurologic Exam: alert, oriented x 3, cooperative, normal mood/affect, nml cerebellar function, sensation nml, No motor deficits Skin Exam: normal color, warm, dry Eye Exam: PERRL, EOMI, eyes nml inspection Ears, Nose, Throat Exam: normal ENT inspection, pharynx normal, moist mucous membranes Neck Exam: normal inspection, non-tender, supple, full range of motion Respiratory Exam: normal breath sounds, lungs clear, No respiratory distress Cardiovascular Exam: regular rate/rhythm, normal heart sounds Gastrointestinal/Abdomen Exam: soft, No tenderness, No mass Extremity Exam: normal inspection, normal range of motion Back Exam: normal inspection, normal range of motion, No CVA tenderness, No vertebral tenderness Male Genitalia Exam: deferred Rectal Exam: deferred OBJECTIVE DATA Vital Signs: Vital Signs - 24 hr Temp Pulse Resp BP BP Pulse Ox 08/05/21 16:00 97.6 F 68 18 141/85 95 08/05/21 14:32 97.9 F 80 18 143/68 150/84 97 08/05/21 11:55 97.9 F 80 18 143/68 97 08/05/21 08:00 98.0 F 79 16 131/67 98 08/05/21 04:00 98.3 F 77 16 138/74 97 08/04/21 23:47 98.6 F 73 16 144/84 94 L 08/04/21 19:15 98.4 F 75 16 132/73 97 Pain Assessment - Last Documented Pain Intensity 5 Pain Scale Used 0-10 Pain Scale Intake and Output: Intake & Output 08/03/21 08/04/21 08/05/21 08/06/21 11:59 11:59 11:59 11:59 Intake Total 3217 1790 607 340 Output Total 9270 1850 400 600 Balance -108 -60 207 -260 Weight 83.5 kg 83.5 kg Lab Results: Lab Results-Last 24 Hours 08/04/21 08/05/21 08/05/21 Range/Units 20:58 07:30 11:48 POC Glucometer 329 H 180 H 296 H (74 to 106) mg/dL 08/05/21 Range/Units 16:28 POC Glucometer 143 H (74 to 106) mg/dL Multi-Disciplinary Progress Notes: Multi-Disciplinary Progress Notes 08/05/21 10:19 Case Management Note by Sarika Krueger REVIEWED CHART TODAY- DO NOT ANTICIPATE ANY CHANGES IN DC PLAN. PATIENT PLANS TO DC HOME WITH CRUTCHES FOR AMBULATION. WILL NEED TO SEE IF ANYTHING ADDITIONAL SUCH DRESSING CHANGES OR ANTIBIOTICS ARE NEEDED AFTER PATIENT RETURNS TO OR TODAY Initialized on 08/05/21 10:19 - END OF NOTE Assessment/Plan (1) Type 2 diabetes mellitus with left diabetic foot infection Current Visit: Yes Status: Acute Assessment & Plan: Chief Complaint Diagnosis OSTEOMYELITIS LEFT FOOT Allergies Allergy/AdvReac Type Severity Reaction Status Date / Time codeine AdvReac Severe Vomiting Verified 03/25/19 13:04 hydrocodone bitartrate AdvReac Severe Vomiting Verified 03/25/19 13:04 [From Vicodin] propoxyphene AdvReac Verified 03/25/19 13:04 [From Darvocet-N 100] Vital Signs (Last 24 hours) Temp Pulse Resp BP BP Pulse Ox 08/05/21 16:00 97.6 F 68 18 141/85 95 08/05/21 14:32 97.9 F 80 18 143/68 150/84 97 08/05/21 11:55 97.9 F 80 18 143/68 97 08/05/21 08:00 98.0 F 79 16 131/67 98 08/05/21 04:00 98.3 F 77 16 138/74 97 08/04/21 23:47 98.6 F 73 16 144/84 94 L 08/04/21 19:15 98.4 F 75 16 132/73 97 Home Medications Medication Instructions Recorded Confirmed Last Taken Type Ascorbic Acid [Vitamin C] 1,000 mg PO DAILY 07/31/21 07/31/21 Unknown History Current Medications Generic Name Dose Route Start Last Admin Trade Name Freq PRN Reason Stop Dose Admin Ascorbic Acid 1,000 mg 08/01/21 12:00 08/05/21 14:39 Ascorbic Acid 500 Mg Tablet PO 08/31/21 11:59 Not Given DAILY AURA Aspirin 325 mg 08/01/21 12:00 08/05/21 16:38 Aspirin 325 Mg Tablet.Ec PO 08/31/21 11:59 325 mg DAILY AURA Administration Device 1 08/05/21 21:30 Therapuetic Drug Level Monitor Each IJ 08/05/21 21:31 1XONLY ONE Fluticasone Propionate 0 gm 08/01/21 12:00 08/05/21 14:39 Fluticasone Propionate 16 Gm Bottle Nasal [place] NS 08/31/21 11:59 1 gm DAILY AURA Administration Gabapentin 1,200 mg 08/01/21 12:00 08/05/21 10:19 Gabapentin 400 Mg Capsule PO 08/31/21 11:59 1,200 mg BID AURA Administration Heparin Sodium (Beef Lung) 500 units 08/02/21 22:36 08/05/21 05:50 Heparin Lock Flush Pf 500 Units/5 Ml Syringe PICC 09/01/21 22:35 500 units PRN PRN Administration IV PORT FLUSH Piperacillin Sod/Tazobactam 100 mls @ 200 mls/hr 07/31/21 22:00 08/05/21 14:24 Sod 3.375 gm/ Sodium Chloride IV 08/06/21 21:59 200 mls/hr Q8HT AURA Administration Lactated Ringer's 1,000 mls @ 100 mls/hr 08/01/21 10:00 08/03/21 14:16 Lactated Ringers IV 08/31/21 09:59 Not Given .Q10H AURA Vancomycin HCl 1.25 gm in 250 mls @ 150 mls/hr 08/01/21 22:00 08/05/21 10:17 Vancomycin 1.25 Gm/250 Ml Bag IV 08/06/21 21:59 150 mls/hr BID AURA Administration Insulin Glargine 40 unit 08/01/21 12:00 08/05/21 14:39 Insulin Glargine 1 Unit SQ 08/31/21 11:59 Not Given QAM [facility] Insulin Human Lispro 0 unit 07/31/21 19:18 08/05/21 12:37 Insulin Lispro 1 Unit SQ 08/30/21 19:17 4 unit UD PRN Administration HYPERGLYCEMIA Loratadine 10 mg 08/01/21 12:00 08/05/21 10:19 Loratadine 10 Mg Tablet PO 08/31/21 11:59 10 mg QAM AURA Administration Morphine Sulfate 4 mg 08/02/21 10:06 08/03/21 21:25 Morphine Sulfate 2 Mg/Ml Inj IV 08/07/21 10:05 4 mg Q4H PRN PRN Administration PAIN Tramadol HCl 50 mg 08/03/21 07:27 08/05/21 16:37 Tramadol Hcl 50 Mg Tablet PO 09/02/21 07:26 50 mg Q4H PRN PRN Administration PAIN Discontinued Medications Generic Name Dose Route Start Last Admin Trade Name Freq PRN Reason Stop Dose Admin Hydrocodone Bitart/Acetaminophen 1 tab 08/01/21 11:14 Hydrocodone/Apap 5/325 Mg Tablet PO 08/06/21 11:13 Q4H PRN PRN PAIN Bupivacaine HCl Confirm 08/01/21 06:53 Bupivacaine Hcl/Pf 50 Mg/10 Ml Vial Administered 08/01/21 06:54 Dose 100 mg IJ .STK-MED ONE Bupivacaine HCl Confirm 08/05/21 14:28 Bupivacaine Hcl/Pf 50 Mg/10 Ml Vial Administered 08/05/21 14:29 Dose 100 mg IJ .STK-MED ONE Device 1 08/03/21 09:30 08/03/21 09:17 Therapuetic Drug Level Monitor Each IJ 08/03/21 09:31 1 1XONLY ONE Administration Fentanyl Citrate Confirm 08/01/21 07:35 Fentanyl Citrate 100 Mcg/2 Ml* Vial Administered 08/01/21 07:36 Dose 100 mcg .ROUTE .STK-MED ONE Fentanyl Citrate Confirm 08/05/21 14:52 Fentanyl Citrate 100 Mcg/2 Ml* Vial Administered 08/05/21 14:53 Dose 100 mcg .ROUTE .STK-MED ONE Gabapentin 1,200 mg 07/31/21 22:30 07/31/21 22:36 Gabapentin 300 Mg Capsule PO 07/31/21 22:31 1,200 mg ONCE ONE Administration Heparin Sodium (Beef Lung) 500 units 08/01/21 12:38 Heparin Lock Flush Pf 500 Units/5 Ml Syringe IV 08/01/21 12:39 .STK-MED ONE Heparin Sodium (Beef Lung) Confirm 08/02/21 22:21 Heparin Lock Flush Pf 500 Units/5 Ml Syringe Administered 08/02/21 22:22 Dose 500 units .ROUTE .STK-MED ONE Hydromorphone HCl Confirm 08/01/21 09:09 Hydromorphone 1 Mg/1ml Inj 1 Mg/Ml Syringe Administered 08/01/21 09:10 Dose 1 mg .ROUTE .STK-MED ONE Vancomycin HCl 1 gm in 200 mls @ 125 mls/hr 07/31/21 22:00 08/01/21 12:11 Vancomycin 1 Gram/200 Ml Bag IV 08/30/21 21:59 Not Given BID AURA Heparin Sodium/Sodium Chloride 500 mls @ ud 08/01/21 12:38 Heparin-Ns 1,000 Units/500 Ml IV 08/01/21 12:39 .STK-MED ONE Lactated Ringer's Confirm 08/05/21 14:28 Lactated Ringers Administered 08/05/21 14:29 Dose 1,000 mls @ ud IV .STK-MED ONE Insulin Human Lispro 10 unit 08/01/21 04:23 08/01/21 04:29 Insulin Lispro 1 Unit SQ 08/01/21 04:24 10 unit STAT ONE Administration Ketamine HCl Confirm 08/01/21 07:45 Ketamine Hcl 50 Mg/Ml Administered 08/01/21 07:46 Dose 20 mg .ROUTE .STK-MED ONE Ketamine HCl Confirm 08/05/21 14:41 Ketamine Hcl 50 Mg/Ml Administered 08/05/21 14:42 Dose 20 mg .ROUTE .STK-MED ONE Lidocaine HCl Confirm 08/01/21 06:53 Lidocaine Hcl 1% 20 Ml Mdv 20 Ml Ml Administered 08/01/21 06:54 Dose 20 ml .ROUTE .STK-MED ONE Lidocaine HCl Confirm 08/05/21 14:28 Lidocaine Hcl 1% 20 Ml Mdv 20 Ml Ml Administered 08/05/21 14:29 Dose 20 ml .ROUTE .STK-MED ONE Midazolam HCl Confirm 08/01/21 07:45 Midazolam Hcl 2 Mg/2 Ml Vial Administered 08/01/21 07:46 Dose 2 mg .ROUTE .STK-MED ONE Midazolam HCl Confirm 08/05/21 14:42 Midazolam Hcl 2 Mg/2 Ml Vial Administered 08/05/21 14:43 Dose 2 mg .ROUTE .STK-MED ONE Morphine Sulfate 4 mg 08/01/21 15:36 08/02/21 05:52 Morphine Sulfate 4 Mg/Ml Injection IV 08/06/21 15:35 4 mg Q4H PRN PRN Administration PAIN Morphine Sulfate Confirm 08/02/21 05:50 Morphine Sulfate 2 Mg/Ml Inj Administered 08/02/21 05:51 Dose 4 mg .ROUTE .STK-MED ONE Non-Formulary Medication 1 units 08/01/21 11:00 Insulin Aspart [Novolog Insulin] SQ 08/31/21 10:59 UD AURA Propofol Confirm 08/01/21 07:34 Propofol 10 Mg/Ml 20ml Vial Administered 08/01/21 07:35 Dose 200 mg IV .STK-MED ONE Propofol Confirm 08/01/21 08:22 Propofol 10 Mg/Ml 20ml Vial Administered 08/01/21 08:23 Dose 200 mg IV .STK-MED ONE Propofol Confirm 08/05/21 14:39 Propofol 10 Mg/Ml 20ml Vial Administered 08/05/21 14:40 Dose 200 mg IV .STK-MED ONE Propofol Confirm 08/05/21 15:25 Propofol 10 Mg/Ml 20ml Vial Administered 08/05/21 15:26 Dose 200 mg IV .STK-MED ONE Intake & Output (Last 24 hours) 08/03/21 08/04/21 08/05/21 08/06/21 11:59 11:59 11:59 11:59 Intake Total 3217 1790 607 340 Output Total 3325 1850 400 600 Balance -108 -60 207 -260 Weight 83.5 kg 83.5 kg Laboratory Results (Last 24 hours) 08/05/21 08/05/21 08/05/21 16:28 11:48 07:30 POC Glucometer 143 H 296 H 180 H 08/04/21 20:58 POC Glucometer 329 H Orders (Last 24 hours) Category Date Time Status Miscellaneous Nursing Order ONCE Care 08/05/21 16:48 Active 1800 Calorie Carbohydrate Diet [Consistent Carbohydrate Diet 08/06/21 Dinner Active Diet 1800 Calorie] POCT GLUCOSE Stat Lab 08/04/21 20:58 Completed POCT GLUCOSE Stat Lab 08/05/21 07:30 Completed POCT GLUCOSE Stat Lab 08/05/21 11:48 Completed POCT GLUCOSE Stat Lab 08/05/21 16:28 Completed Vancomycin, Trough Urgent Lab 08/05/21 21:30 Ordered Bupivacaine HCl/Pf [Bupivacaine 0.5% Vial] Med 08/05/21 14:28 Discontinued 100 mg IJ .STK-MED ONE Fentanyl Citrate 100 Mcg/2 ml* [Sublimaze 100 Mcg/2 ml* Med 08/05/21 14:52 Discontinued ] 100 mcg .ROUTE .STK-MED ONE Ketamine HCl 50 mg/ml [Ketamine HCl 50 MG/ML] Med 08/05/21 14:41 Discontinued 20 mg .ROUTE .STK-MED ONE Lidocaine HCl 1% 20 ml Mdv [Xylocaine 1% HCl 20 ml Med 08/05/21 14:28 Discontinued Mdv] 20 ml .ROUTE .STK-MED ONE Midazolam HCl 2 mg/2 ml [Versed 2 MG/2 ML Injection* Med 08/05/21 14:42 Discontinued ] 2 mg .ROUTE .STK-MED ONE Propofol 200 mg/20 ml [Diprivan 200 mg/20 ml] Med 08/05/21 14:39 Discontinued 200 mg IV .STK-MED ONE Propofol 200 mg/20 ml [Diprivan 200 mg/20 ml] Med 08/05/21 15:25 Discontinued 200 mg IV .STK-MED ONE Ringers Solution,Lactated [Lactated Ringers] 1,000 ml Med 08/05/21 14:28 Discontinued IV UD Therapuetic Drug Level Monitor [Trough Drug Levels] Med 08/05/21 21:30 Once 1 IJ 1XONLY ONE Patient Care Notes (Last 24 hours) 08/05/21 16:46 Nursing Note by Sarah Velásquez DR CAME TO THIS NURSE AND STATED THAT HE WROTE PATIENT COULD BE DISCHARGED WHEN MEDICALLY METS CRITERIA BUT WOULD LIKE PATIENT TO STAY TONIGHT SO PATIENT CAME GET IV ANTIBIOTICS SET UP Initialized on 08/05/21 16:46 - END OF NOTE 08/05/21 14:40 Nursing Note by Sarah Velásquez PATIENT BEING SENT FOR SURGERY [id number] Initialized on 08/05/21 14:40 - END OF NOTE 08/05/21 10:19 Case Management Note by Sarika Krueger REVIEWED CHART TODAY- DO NOT ANTICIPATE ANY CHANGES IN DC PLAN. PATIENT PLANS TO DC HOME WITH CRUTCHES FOR AMBULATION. WILL NEED TO SEE IF ANYTHING ADDITIONAL SUCH DRESSING CHANGES OR ANTIBIOTICS ARE NEEDED AFTER PATIENT RETURNS TO OR TODAY Initialized on 08/05/21 10:19 - END OF NOTE Code(s): E11.628 - TYPE 2 DIABETES MELLITUS WITH OTHER SKIN COMPLICATIONS; L08.9 - LOCAL INFECTION OF THE SKIN AND SUBCUTANEOUS TISSUE, UNSP (2) IDDM (insulin dependent diabetes mellitus) Current Visit: Yes Status: Acute Code(s): BCJ3284 - (3) Osteomyelitis Current Visit: Yes Status: Acute Qualifiers: Osteomyelitis type: chronic, with draining sinus Laterality: left Code(s): M86.9 - OSTEOMYELITIS, UNSPECIFIED
[2021-08-05] MEDS: Lactated Ringers 1,000 ML IV SCH (21:24)
[2021-08-05] MEDS ORDERED: TROUGH DRUG LEVELS IJ ONE (21:30)
[2021-08-05] MEDS: MORPHINE SULFATE 2 MG INJ IV PRN (22:37)
[2021-08-06] MEDS: MORPHINE SULFATE 2 MG INJ IV PRN ×3 (00:56→06:22)
[2021-08-06] MEDS: Lactated Ringers 1,000 ML IV SCH (00:56)
[2021-08-06] MEDS: ULTRAM 50 MG PO PRN ×2 (03:32→09:14)
[2021-08-06] MEDS: Zosyn 3.375 GM Vial 3.375 GM in Sodium Chloride 100ML MINI-BAG PLUS 100 ML IV SCH ×2 (06:29→14:25)
[2021-08-06] MEDS ORDERED: MORPHINE SULFATE 4 MG INJ IV PRN (07:00)
--- NOTE | 2021-08-06 07:46 | OP ---
SURGERY DATE/TIME: 08/05/2021 1457 PREOPERATIVE DIAGNOSES: 1) Acute osteomyelitis. 2) Chronic osteomyelitis. 3) Uncontrolled diabetes mellitus type II. 4) Diabetic foot ulcer left foot. POSTOPERATIVE DIAGNOSES: 1) Acute osteomyelitis. 2) Chronic osteomyelitis. 3) Uncontrolled diabetes mellitus type II. 4) Diabetic foot ulcer left foot. PROCEDURE: Repeat incision and drainage with bone debridement as well as delayed primary closure. SURGEON: Juan Mark DPM. INSURANCE LAW SPECIALIST: None. ANESTHESIA: MAC plus local. See injectables for local. HEMOSTASIS: Pressure dressing. ESTIMATED BLOOD LOSS: Less than 20 cc. MATERIALS: 2-0 Vicryl, 3-0 Nylon. INJECTABLES: 20 cc of a 1:1 mixture of 1% lidocaine plain and 0.5% bupivacaine plain injected in Yang-type block fashion. INDICATION FOR SURGERY: Eric is a very pleasant 61-year-old male who is well known to my service for a hardware removal status post repetitive injury and trauma to the forefoot with ambulation resulting in backing out of hardware resulting in an ulceration to the distal tip of the left hallux. 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 The patient had the screw removed and x-rays were taken demonstrating significant osseous changes indicative of osteomyelitis in the past. The patient was given an ultimatum in regards to moving forward with treatment and the patient opted for the limb salvage attempt. The patient was instructed that there would likely be a time where the chronic infection could potentially seed to become acute once more due to disillusion of sequestrum in the bone this occurred six weeks following the removal of the hardware and the patient opted to proceed with surgical intervention consisting of amputation of the hallux. At this time the patient had an incision and drainage as well as an amputation of the left hallux and the wound has been left open for five days at this time. Clinical inspection of the wound it appears that there is no remaining infection with minimal necrosis to the medial aspect of the first metatarsal as well as minimal necrosis to the edges of the wound which makes him an adequate candidate for delayed primary closure following an incision and drainage with bone debridement. The patient understands all risks, benefits and complications of surgical intervention. Of the utmost high prevalence is repeat infection or surgical dehiscence of the wound which would result in need for possible surgical intervention in the future. The patient at this time has minimal tension on the wounds when assessed and will likely proceed without these complications. However this risk has been discussed with the patient in depth and he understands that this is a potential complication that may result of proceeding. It is with this the patient decided to proceed with surgical intervention. DESCRIPTION OF PROCEDURE AND FINDINGS: The patient is brought into the OR and placed on the OR table in supine position. Following this MAC anesthesia was administered until the patient was sedated. The left lower extremity was then prepped and draped in the typical sterile fashion and lowered onto the surgical field. At this time a 20 injection of 1:1 mixture of 1% lidocaine plain and 0.5% bupivacaine plain was injected in the Yang block-type fashion surrounding the first ray. Following this attention was then directed to the remaining [id number] suture which were holding the middle of the surgical site intact and coapt. These were removed revealing the medial aspect of the first ray-metatarsal which demonstrated some minimal focal necrosis at the distal dorsal head of the metatarsal, this was debrided utilizing a curette and a rongeur until a healthy bleeding bone was achieved. At this time the surrounding wound was then incised at the lateral margin revealing a healthy bleeding edge. No residual signs of infection were encountered and a pulse lavage with 3 liters of sterile saline was utilized to cleanse the surgical site at this time. Following this the remaining margins of the wound as well as the deep portions of the wound were inspected for any areas of tracking and remaining infection which were not found. At this time 2-0 Vicryl was utilized to coapt the subcutaneous tissue in a buried technique. At this time 3-0 Nylon was then utilized to perform an alternating horizontal mattress and simple interrupted technique coapting the skin edges under minimal tension. The leg was then cleansed and dried and a dressing of Betadine, Adaptic, 4x4, Kerlix and TORITO was applied to the left lower extremity. The patient was reversed from anesthesia and returned to the postoperative anesthesia care unit with vital signs stable and vascular status intact. The patient handled the procedure without complication as well as the anesthesia. See postoperative orders for details.
[2021-08-06] MEDS: Neurontin 400 MG PO SCH ×2 (09:14→21:35)
[2021-08-06] MEDS: CLARITIN 10 MG PO SCH (09:14)
[2021-08-06] MEDS: Lantus Insulin SQ SCH (09:14)
[2021-08-06] MEDS: Vitamin C 500 MG PO SCH (09:14)
[2021-08-06] MEDS: Ecotrin 325 MG PO SCH (09:14)
[2021-08-06] MEDS: HUMALOG SQ PRN ×3 (09:15→21:36)
[2021-08-06] MEDS: Flonase NASAL NS SCH (09:20)
[2021-08-06] MEDS: VANCOMYCIN 1.25 GM/250 ML BAG 1.25 GM/250 ML PIGGYBACK IV SCH ×2 (09:20→21:35)
[2021-08-07] MEDS ORDERED: MORPHINE SULFATE 2 MG INJ IV PRN (07:09)
[2021-08-07 07:46] VITALS: O2SAT 93
[2021-08-07] MEDS: HUMALOG SQ PRN ×2 (07:51→12:47)
[2021-08-07] MEDS: Flonase NASAL NS SCH (10:29)
[2021-08-07] MEDS: CLARITIN 10 MG PO SCH (10:29)
[2021-08-07] MEDS: Vitamin C 500 MG PO SCH (10:29)
[2021-08-07] MEDS: Lantus Insulin SQ SCH (10:29)
[2021-08-07] MEDS: VANCOMYCIN 1.25 GM/250 ML BAG 1.25 GM/250 ML PIGGYBACK IV SCH (10:29)
[2021-08-07] MEDS: Neurontin 400 MG PO SCH (10:29)
[2021-08-07] MEDS: Ecotrin 325 MG PO SCH (10:29)
[2021-08-07 12:33] VITALS: BP 153/70; PULSE 72
--- NOTE | 2021-08-07 12:57 | PCM.NOTE ---
Date and Time: 08/07/21 1235 Subjective Assessment: Patient seen at bedside this afternoon. No pain. Dressing slightly disshveled. He denies any complaints at this time other than he is bored. He denies constitutional symptoms of infection. He denies any other pedal complaints at this time Physical Exam - Narrative Narrative Physical Exam: Constitutional: On presentation dressing clean dry and intact negative for strikethrough on primary or secondary dressings.. Vascular DP and PT pulses are palpable minimal remaining cellulitis noted at the periwound edges. blanchable skin edge. Minimal peripheral wound necrosis noted. No lymphangitis or lymphadenopathy on palpation of the inguinal or popliteal lymph nodes. No proximal streaking noted at this time. Dermatological: Left lower extremity centered: Wound coapt centrally however open at the proximal and distal extents to allow for infection to drain over the course of the next several days periwound erythema and some pain with palpation wound no dusky appearance of the tissue at this time indicating increased possibility of solely delayed primary closure for successful treatment Neurological: Diminished epicritic sensation intact protopathic sensation Musculoskeletal: Able to wiggle toes negative for calf pain OBJECTIVE DATA Vital Signs: Vital Signs - 24 hr Temp Pulse Resp BP Pulse Ox 08/07/21 12:00 98.4 F 72 14 153/70 93 L 08/07/21 07:44 98.7 F 73 16 161/75 93 L 08/07/21 04:00 97.3 F 73 16 142/83 96 08/06/21 23:55 97.9 F 83 18 154/89 95 08/06/21 19:31 97.7 F 69 18 163/81 98 08/06/21 16:00 97.5 F 76 18 128/78 95 Pain Assessment - Last Documented Pain Intensity 0 Pain Scale Used 0-10 Pain Scale Intake and Output: Intake & Output 08/05/21 08/06/21 08/07/21 08/08/21 11:59 11:59 11:59 11:59 Intake Total 607 1455 680 Output Total 400 1550 500 Balance 207 -95 180 Weight 83.5 kg Lab Results: Lab Results-Last 24 Hours 07/31/21 08/06/21 08/06/21 Range/Units 17:45 16:31 20:33 POC Glucometer 225 H 392 H (74 to 106) mg/dL C-Reactive Prot, Quant 62 (.) mg/L 08/07/21 08/07/21 Range/Units 07:37 11:51 POC Glucometer 279 H 324 H (74 to 106) mg/dL C-Reactive Prot, Quant (.) mg/L Multi-Disciplinary Progress Notes: Multi-Disciplinary Progress Notes 08/07/21 11:48 Case Management Note by Sarika Krueger DO NOT ANTICIPATE ANY CHANGES IN DC PLAN. WAITING FOR ROXANNA TO ROUND AND GIVE FINAL DC ORDERS Initialized on 08/07/21 11:48 - END OF NOTE Assessment/Plan (1) Type 2 diabetes mellitus with left diabetic foot infection Current Visit: Yes Status: Acute Assessment & Plan: Patient examination evaluation. Patient is progressing without significant complication Dressings changed revealing coapted incision without any signs of surgical dehiscence or necrosis Patient may not bear weight to the left lower extremity at this time with the assistance of crutches for at minimum 2 to 3 weeks. DVT prophylaxis as previously prescribed. Pain is under control from a p.o. standpoint. May be discharged with Ultram 50 mg p.o. every 6 hours for breakthrough pain dispense 28 Discharge ABX 1 g Invanz daily through PICC line stop date pull PICC line on this day Follow-up 1 week Code(s): E11.628 - TYPE 2 DIABETES MELLITUS WITH OTHER SKIN COMPLICATIONS; L08.9 - LOCAL INFECTION OF THE SKIN AND SUBCUTANEOUS TISSUE, UNSP (2) Osteomyelitis Current Visit: Yes Status: Acute Qualifiers: Osteomyelitis type: chronic, with draining sinus Laterality: left Code(s): M86.9 - OSTEOMYELITIS, UNSPECIFIED (3) DVT prophylaxis Current Visit: No Status: Acute Code(s): PNE0267 - (4) Uncontrolled type 2 diabetes mellitus Current Visit: Yes Status: Acute Code(s): E11.65 - TYPE 2 DIABETES MELLITUS WITH HYPERGLYCEMIA
[2021-08-07] MEDS ORDERED: TROUGH DRUG LEVELS IJ ONE (21:30)
== END 2021-08-07 14:36 | disposition home or self-care (01) | DRG 502 ==
LOC: MED SURG 17:12
PROVIDERS: ADMIT Family Medicine; ATTEND General Practice
PROC: 0Y6Q0Z0 Detachment at Left 1st Toe, Complete, Open Approach (ICD-10-PCS; principal; 2021-08-01)
PROC: 02HV33Z Insertion of Infusion Device into Superior Vena Cava, Percutaneous Approach (ICD-10-PCS; 2021-08-01)
PROC: 0JQR0ZZ Repair Left Foot Subcutaneous Tissue and Fascia, Open Approach (ICD-10-PCS; 2021-08-05)
PROC: 0Y9N0ZZ Drainage of Left Foot, Open Approach (ICD-10-PCS; 2021-08-05)
DX: M86.172 Other acute osteomyelitis, left ankle and foot (principal); M86.672 Other chronic osteomyelitis, left ankle and foot; E11.621 Type 2 diabetes mellitus with foot ulcer; E11.65 Type 2 diabetes mellitus with hyperglycemia; E11.628 Type 2 diabetes mellitus with other skin complications; L08.9 Local infection of the skin and subcutaneous tissue, unspecified; M79.672 Pain in left foot; E78.00 Pure hypercholesterolemia, unspecified; M54.9 Dorsalgia, unspecified; R07.81 Pleurodynia; Z79.899 Other long term (current) drug therapy; Z79.4 Long term (current) use of insulin; Z20.822 Contact with and (suspected) exposure to COVID-19
CPT/HCPCS: 10060; 13160; 28005; 28820; 36415; 36573; 71100; 73620; 76937; 77001; 80053; 80202; 81001; 82947; 83036; 84550; 85025; 85027; 85610; 85652; 85730; 86140; 87070; 87075; 88305; 88311; 93005; 99213; 99232; 99233; C1769; J1170; J1642; J1817; J2250; J2270; J2704; J3010; L0625; U0003; A9270-GY; J3370

== ENCOUNTER 2023-03-08 13:25 | Observation (INO) | payer OTHER, SELFPAY ==
[2023-03-08] MEDS ORDERED: Sodium Chloride 0.9% 1000 ML 1,000 ML IV STA ×2 (13:30→14:37)
[2023-03-08] MEDS ORDERED: Sodium Chloride 0.9% 1000 ML 1,000 ML ONE ×2 (13:40→14:40)
[2023-03-08 13:50] LABS: Absolute Neutrophil Ct (ANC) 5.71 x10^3/uL (1.4-6.9); BASOPHIL % 1.2 % (0.0-0.4); Basophil (Absolute #) 0.09 x10^3/uL (0-0.4); Eosinophil % 0.6 % (0.00-5.0); Eosinophil (Absolute #) 0.05 x10^3/uL (0-0.5); Hematocrit 38.5 % (42-50); Hemoglobin 12.8 g/dL (12.5-18.0); IMMATURE GRAN # 0.02 x10^3u/L (0.00-0.03); IMMATURE GRAN % 0.3 % (0.00-0.4); Lymphocyte (Absolute #) 1.34 x10^3/uL (1.0-4.6); Lymphocytes % 17.2 % (24.0-44.0); Mean Cell Volume 89.5 fL (78-100); Mean Corpuscular Hemoglobin 29.8 pg (26-32); Mean Corpuscular Hgb Concent. 33.2 g/dL (32-36); Mean Platelet Volume 11.1 fL (7.5-11.0); Monocyte (Absolute #) 0.58 x10^3/uL (0.0-1.3); Monocytes % 7.4 % (0.0-12.0); Neutrophil % 73.3 % (36.0-66.0); Platelet Count 268 x10^3/uL (150-450); Red Cell Distribution Width 13.6 % (11.5-14.0); White Blood Count 7.8 x10^3/uL (4.0-10.5)
--- NOTE | 2023-03-08 13:53 | ERPHSYRPT ---
- History of Present Illness Time Seen by Provider: 03/08/23 13:40 Source: patient, EMS Exam Limitations: no limitations Patient Subjective Stated Complaint: Pt states "I was logging on my land and I passed out.". Ems stated "When he passed out his family checked his sugar and it read HI so they gave 15 units of insulin and we got 227. we gave him some fluids and started a line." Triage Nursing Assessment: Pt presented alert and oriented X 3, skin pwd. Pt able to speak in clear full setences pt holding his head and wincing, pt sleepy. Pt resting comfortably on the bed. PT in no apaprent respiratory distress. 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 He has been working today and got extreme extremely hot he was excessively sweating and he had a syncopal episode. He is blood sugar was found to rate high on the glucometer by EMS they gave 15 units of NovoLog and his blood sugar came down to 227 upon his arrival in the ER. Heart rate was 78 his blood pressure was 90/50 on arrival but had been as low as 88/30 at the scene. He does complain of a severe headache. Witnessed: by family Prior Episodes: single episode today Timing/Duration: today Precipitating Factors: unknown Context: other (Physical exertion at work with excessive sweating.) Loss of Consciousness: brief (seconds) Charcter of event(s): collapsed, became unresponsive Allergies/Adverse Reactions: codeine Adverse Reaction (Severe, Verified 08/08/21 10:10) Vomiting hydrocodone bitartrate [From Vicodin] Adverse Reaction (Severe, Verified 08/08/21 10:10) Vomiting propoxyphene [From Darvocet-N 100] Adverse Reaction (Verified 08/08/21 10:10) Home Medications: Insulin Aspart [NovoLOG Insulin] 1 units SQ UD 05/29/16 [History] Insulin Glargine [Lantus Insulin] 40 units SQ QAM 03/25/19 [History] Gabapentin [Gralise] 600 mg PO DAILY 03/08/23 [History] Hx Tetanus, Diphtheria Vaccination/Date Given: Yes Hx Influenza Vaccination/Date Given: No Hx Pneumococcal Vaccination/Date Given: No Immunizations Up to Date: Yes Travel Risk - International Travel Have you traveled outside of the country in past 3 weeks: No - Coronavirus Screening Are you exhibiting any of the following symptoms?: No Close contact with a COVID-19 positive Pt in past 14-21 Days: No - Vaccine Status Have you recieved a Covid-19 vaccination: Yes Budget Specialist: Unknown - Vaccination Dates Dates if Unknown: UNK - Past Medical History Pertinent Past Medical History: Yes Neurological History: No Pertinent History ENT History: No Pertinent History Cardiac History: High Cholesterol Respiratory History: Pneumonia Endocrine Medical History: Diabetes Type II Musculoskeletal History: No Pertinent History GI Medical History: Other History: No Pertinent History Psycho-Social History: No Pertinent History Male Reproductive Disorders: No Pertinent History Other Medical History: FX L LEG AND FOOT subsequent infection. diarrhea x3 weeks, was hospitalized for gi sx. gangrene, sepsis - Past Surgical History Past Surgical History: Yes Neuro Surgical History: No Pertinent History Cardiac: No Pertinent History Respiratory: No Pertinent History Gastrointestinal: Cholecystectomy, Hernia Repair Genitourinary: No Pertinent History Musculoskeletal: Orthopedic Surgery Male Surgical History: No Pertinent History Other Surgical History: right femur fixed at age 15. left foot broke at age 20. left leg and foot surgery ,,I&D of left foot, polyps removed - Social History Smoking Status: Never smoker Exposure to second hand smoke: Yes Drug Use: none Patient Lives Alone: No - Review of Systems Constitutional: No Fever, No Chills Eyes: No Symptoms Ears, Nose, & Throat: No Symptoms Respiratory: No Cough, No Dyspnea Cardiac: No Chest Pain, No Edema, No Syncope Abdominal/Gastrointestinal: No Abdominal Pain, No Nausea, No Vomiting, No Diarrhea Genitourinary Symptoms: No Dysuria Musculoskeletal: No Back Pain, No Neck Pain Skin: No Rash Neurological: Headache, Other (Syncope), No Dizziness, No Focal Weakness, No Sensory Changes Psychological: No Symptoms Endocrine: No Symptoms All Other Systems: Reviewed and Negative Physical Exam - Nursing Vital Signs Nursing Vital Signs: Initial Vital Signs Pulse Rate 83 03/08/23 13:33 Blood Pressure 117/75 03/08/23 13:33 Pain Scale Pain Intensity 3 - [place] Coma Scale Best Eye Response (Howard): (4) open spontaneously Best Verbal Response ([place]): (5) oriented Best Motor Response (Howard): (6) obeys commands [place] Total: 15 - Physical Exam General Appearance: no apparent distress, alert Eye Exam: bilateral eye: PERRL, EOMI Ears, Nose, Throat Exam: normal ENT inspection, pharynx normal, moist mucous membranes Neck Exam: normal inspection, non-tender, supple, full range of motion Respiratory: normal breath sounds, lungs clear, No chest tenderness, No respiratory distress Cardiovascular: regular rate/rhythm, capillary refill <2 sec, No murmur, No pulse deficit Gastrointestinal: soft, No tenderness, No distention, No mass Back Exam: normal inspection, normal range of motion, No CVA tenderness, No vertebral tenderness Extremity Exam: normal inspection, normal range of motion, pelvis stable, No tenderness Mental Status: alert, oriented x 3, 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 Exam: normal speech, PERRL, No facial droop Coordination/Gait: normal finger to nose Motor/Sensory: no motor deficit, no sensory deficit, no pronator drift Skin Exam: normal color, warm, diaphoresis, No rash SpO2 Interpretation: normal SpO2: 92 O2 Delivery: Room Air - Course Nursing assessment & vital signs reviewed: Yes EKG Interpreted by Me: RATE (82), Sinus Rhythm, NORMAL AXIS, NORMAL INTERVALS, NORMAL QRS, ST Elev (Borderline ST elevation lateral leads, no reciprocal changes noted), Other - Radiology Exams Chest X-ray Interpretation: Reviewed by me - CT Exams Head CT Interpretation: Negative Ordered Tests: Active Orders 24 hr Category Date Time Status Geological Technician STAT Care 03/08/23 13:30 Active Clean Catch Urine Specimen STAT Care 03/08/23 13:30 Active EKG-ER Only STAT Care 03/08/23 13:30 Active IV Insertion STAT Care 03/08/23 13:30 Active CHEST 1 VIEW (PORTABLE) Stat Exams 03/08/23 13:30 Completed HEAD WITHOUT CONTRAST [CT] Stat Exams 03/08/23 13:30 Completed CBC W DIFF Stat Lab 03/08/23 13:45 Completed CMP Stat Lab 03/08/23 13:45 Completed D-DIMER QUANTITATIVE Stat Lab 03/08/23 13:45 Completed ETHYL ALCOHOL Stat Lab 03/08/23 13:45 Completed Glucose Stat Lab 03/08/23 15:53 Completed PROTIME WITH INR Stat Lab 03/08/23 13:45 Completed TROPONIN Q4H Lab 03/08/23 13:45 Completed TROPONIN Q4H Lab 03/08/23 15:53 Completed TROPONIN Q4H Lab 03/08/23 21:45 Ordered UA W/RFX UR CULTURE Stat Lab 03/08/23 15:34 Completed Urine Triage Profile Stat Lab 03/08/23 15:34 Completed Medication Summary Discontinued Medications Generic Name Dose Route Start Last Admin Trade Name Vickie PRN Reason Stop Dose Admin Sodium Chloride 1,000 mls @ 999 mls/hr 03/08/23 13:30 03/08/23 14:45 Sodium Chloride 0.9% 1000 Ml IV 03/08/23 14:30 Infused .Q1H1M STA Infusion Sodium Chloride Confirm 03/08/23 13:40 Sodium Chloride 0.9% 1000 Ml Administered 03/08/23 13:41 Dose 1,000 mls @ ud .ROUTE .STK-MED ONE Sodium Chloride 1,000 mls @ 999 mls/hr 03/08/23 14:37 03/08/23 15:44 Sodium Chloride 0.9% 1000 Ml IV 03/08/23 15:37 Infused .Q1H1M STA Infusion Sodium Chloride Confirm 03/08/23 14:40 Sodium Chloride 0.9% 1000 Ml Administered 03/08/23 14:41 Dose 1,000 mls @ ud .ROUTE .STK-MED ONE Lab/Rad Data: Laboratory Result Diagrams 03/08/23 13:45 03/08/23 13:45 Laboratory Results 03/08/23 03/08/23 03/08/23 Range/Units 15:53 15:34 15:34 WBC (4.0-10.5) x10^3/uL RBC (4.1-5.6) x10^6/uL Hgb (12.5-18.0) g/dL Hct (42-50) % MCV (78-100) fL MCH (26-32) pg MCHC (32-36) g/dL RDW (11.5-14.0) % Plt Count (150-450) x10^3/uL MPV (7.5-11.0) fL Gran % (36.0-66.0) % Immature Gran % (Auto) (0.00-0.4) % Nucleat RBC Rel Count (0.00-0.1) % Eos # (Auto) (0-0.5) x10^3/uL Immature Gran # (Auto) (0.00-0.03) x10^3u/L Absolute Lymphs (auto) (1.0-4.6) x10^3/uL Absolute Monos (auto) (0.0-1.3) x10^3/uL Absolute Nucleated RBC (0.00-0.01) x10^3u/L Lymphocytes % (24.0-44.0) % Monocytes % (0.0-12.0) % Eosinophils % (0.00-5.0) % Basophils % (0.0-0.4) % Absolute Granulocytes (1.4-6.9) x10^3/uL Basophils # (0-0.4) x10^3/uL PT (9.4-12.5) SECONDS INR (0.8-3.0) D-Dimer (0.0-0.50) mg/L Sodium (137-145) mmol/L Potassium (3.5-5.1) mmol/L Chloride (98-107) mmol/L Carbon Dioxide (22-30) mmol/L Anion Gap (5-15) MEQ/L BUN (9-20) mg/dL Creatinine (0.66-1.25) mg/dL Estimated GFR ML/MIN Glucose 103 (74-106) mg/dL Calcium (8.4-10.2) mg/dL Total Bilirubin (0.2-1.3) mg/dL AST (17-59) U/L ALT (0-50) U/L Alkaline Phosphatase (38-126) U/L Troponin I < 0.012 (0.000-0.034) ng/mL Serum Total Protein (6.3-8.2) g/dL Albumin (3.5-5.0) g/dL Urine Color Yellow (Yellow) Urine Appearance Clear (Clear) Urine pH 5.0 (4.6-8.0) Ur Specific [place] >=1.030 A (1.005-1.030) Urine Protein 100 A (Negative) Urine Glucose (UA) 500 A (Negative) mg/dL Urine Ketones Trace A (Negative) Urine Blood Negative (Negative) Urine Nitrite Negative (Negative) Urine Bilirubin Negative (Negative) Urine Urobilinogen 0.2 (0.2) mg/dL Ur Leukocyte Esterase Negative (Negative) U Hyaline Cast (Auto) 0-2 (0-2) /LPF Urine Microscopic RBC 0-2 (0-5) /HPF Urine Microscopic WBC 0-2 (0-5) /HPF Ur Epithelial Cells Rare (None Seen) /HPF Urine Bacteria Rare A (None Seen) /HPF Urine Culture Reflexed NO (NO) Urine Opiates Level NEGATIVE (NEGATIVE) Ur Methadone NEGATIVE (NEGATIVE) Urine Barbiturates NEGATIVE (NEGATIVE) Ur Phencyclidine (PCP) NEGATIVE (NEGATIVE) Urine Amphetamine NEGATIVE (NEGATIVE) U Benzodiazepine Level NEGATIVE (NEGATIVE) Urine Cocaine NEGATIVE (NEGATIVE) Urine Marijuana (THC) NEGATIVE (NEGATIVE) Ethyl Alcohol (0-10) mg/dL 03/08/23 03/08/23 03/08/23 Range/Units 13:45 13:45 13:45 WBC (4.0-10.5) x10^3/uL RBC (4.1-5.6) x10^6/uL Hgb (12.5-18.0) g/dL Hct (42-50) % MCV (78-100) fL MCH (26-32) pg MCHC (32-36) g/dL RDW (11.5-14.0) % Plt Count (150-450) x10^3/uL MPV (7.5-11.0) fL Gran % (36.0-66.0) % Immature Gran % (Auto) (0.00-0.4) % Nucleat RBC Rel Count (0.00-0.1) % Eos # (Auto) (0-0.5) x10^3/uL Immature Gran # (Auto) (0.00-0.03) x10^3u/L Absolute Lymphs (auto) (1.0-4.6) x10^3/uL Absolute Monos (auto) (0.0-1.3) x10^3/uL Absolute Nucleated RBC (0.00-0.01) x10^3u/L Lymphocytes % (24.0-44.0) % Monocytes % (0.0-12.0) % Eosinophils % (0.00-5.0) % Basophils % (0.0-0.4) % Absolute Granulocytes (1.4-6.9) x10^3/uL Basophils # (0-0.4) x10^3/uL PT 10.1 (9.4-12.5) SECONDS INR 0.92 (0.8-3.0) D-Dimer 0.46 (0.0-0.50) mg/L Sodium 140 (137-145) mmol/L Potassium 3.9 (3.5-5.1) mmol/L Chloride 102 (98-107) mmol/L Carbon Dioxide 25 (22-30) mmol/L Anion Gap 16.9 H (5-15) MEQ/L BUN 25 H (9-20) mg/dL Creatinine 1.70 H (0.66-1.25) mg/dL Estimated GFR 43.5 ML/MIN Glucose 209 H (74-106) mg/dL Calcium 9.7 (8.4-10.2) mg/dL Total Bilirubin 1.10 (0.2-1.3) mg/dL AST 22 (17-59) U/L ALT 21 (0-50) U/L Alkaline Phosphatase 79 (38-126) U/L Troponin I < 0.012 (0.000-0.034) ng/mL Serum Total Protein 7.6 (6.3-8.2) g/dL Albumin 4.4 (3.5-5.0) g/dL Urine Color (Yellow) Urine Appearance (Clear) Urine pH (4.6-8.0) Ur Specific [place] (1.005-1.030) Urine Protein (Negative) Urine Glucose (UA) (Negative) mg/dL Urine Ketones (Negative) Urine Blood (Negative) Urine Nitrite (Negative) Urine Bilirubin (Negative) Urine Urobilinogen (0.2) mg/dL Ur Leukocyte Esterase (Negative) U Hyaline Cast (Auto) (0-2) /LPF Urine Microscopic RBC (0-5) /HPF Urine Microscopic WBC (0-5) /HPF Ur Epithelial Cells (None Seen) /HPF Urine Bacteria (None Seen) /HPF Urine Culture Reflexed (NO) Urine Opiates Level (NEGATIVE) Ur Methadone (NEGATIVE) Urine Barbiturates (NEGATIVE) Ur Phencyclidine (PCP) (NEGATIVE) Urine Amphetamine (NEGATIVE) U Benzodiazepine Level (NEGATIVE) Urine Cocaine (NEGATIVE) Urine Marijuana (THC) (NEGATIVE) Ethyl Alcohol < 10 (0-10) mg/dL 03/08/ Range/Units 13:45 WBC 7.8 (4.0-10.5) x10^3/uL RBC 4.30 (4.1-5.6) x10^6/uL Hgb 12.8 (12.5-18.0) g/dL Hct 38.5 L (42-50) % MCV 89.5 (78-100) fL MCH 29.8 (26-32) pg MCHC 33.2 (32-36) g/dL RDW 13.6 (11.5-14.0) % Plt Count 268 (150-450) x10^3/uL MPV 11.1 H (7.5-11.0) fL Gran % 73.3 H (36.0-66.0) % Immature Gran % (Auto) 0.3 (0.00-0.4) % Nucleat RBC Rel Count 0.0 (0.00-0.1) % Eos # (Auto) 0.05 (0-0.5) x10^3/uL Immature Gran # (Auto) 0.02 (0.00-0.03) x10^3u/L Absolute Lymphs (auto) 1.34 (1.0-4.6) x10^3/uL Absolute Monos (auto) 0.58 (0.0-1.3) x10^3/uL Absolute Nucleated RBC 0.00 (0.00-0.01) x10^3u/L Lymphocytes % 17.2 L (24.0-44.0) % Monocytes % 7.4 (0.0-12.0) % Eosinophils % 0.6 (0.00-5.0) % Basophils % 1.2 (0.0-0.4) % Absolute Granulocytes 5.71 (1.4-6.9) x10^3/uL Basophils # 0.09 (0-0.4) x10^3/uL PT (9.4-12.5) SECONDS INR (0.8-3.0) D-Dimer (0.0-0.50) mg/L Sodium (137-145) mmol/L Potassium (3.5-5.1) mmol/L Chloride (98-107) mmol/L Carbon Dioxide (22-30) mmol/L Anion Gap (5-15) MEQ/L BUN (9-20) mg/dL Creatinine (0.66-1.25) mg/dL Estimated GFR ML/MIN Glucose (74-106) mg/dL Calcium (8.4-10.2) mg/dL Total Bilirubin (0.2-1.3) mg/dL AST (17-59) U/L ALT (0-50) U/L Alkaline Phosphatase (38-126) U/L Troponin I (0.000-0.034) ng/mL Serum Total Protein (6.3-8.2) g/dL Albumin (3.5-5.0) g/dL Urine Color (Yellow) Urine Appearance (Clear) Urine pH (4.6-8.0) Ur Specific [place] (1.005-1.030) Urine Protein (Negative) Urine Glucose (UA) (Negative) mg/dL Urine Ketones (Negative) Urine Blood (Negative) Urine Nitrite (Negative) Urine Bilirubin (Negative) Urine Urobilinogen (0.2) mg/dL Ur Leukocyte Esterase (Negative) U Hyaline Cast (Auto) (0-2) /LPF Urine Microscopic RBC (0-5) /HPF Urine Microscopic WBC (0-5) /HPF Ur Epithelial Cells (None Seen) /HPF Urine Bacteria (None Seen) /HPF Urine Culture Reflexed (NO) Urine Opiates Level (NEGATIVE) Ur Methadone (NEGATIVE) Urine Barbiturates (NEGATIVE) Ur Phencyclidine (PCP) (NEGATIVE) Urine Amphetamine (NEGATIVE) U Benzodiazepine Level (NEGATIVE) Urine Cocaine (NEGATIVE) Urine Marijuana (THC) (NEGATIVE) Ethyl Alcohol (0-10) mg/dL - Progress Progress: improved Discussed with : Carl Will see patient in: hospital (observation) Medical Desision Making - Independent Historian Additional History obtained from: Spouse - Discussion of managment Care discussed with:: PCP Agreed on:: Treatment plan, decision to admit, place in obs Will see patient: in hospital - Diagnostic Testing Diagnostic test were ordered, analyzed, and reviewed by me: Yes Radiological Interpretation: Reviewed by me - Risk of complications The pt has a mod risk of morbidity or mortality based on: Need for prescription drug management - Departure Departure Disposition: Observation Clinical Impression: Syncope and collapse, IDDM (insulin dependent diabetes mellitus) Condition: Stable Critical Care Time: No Referrals: RUSTY ORTIZ MD [Primary Care Provider] - Follow up/PCP as directed Instructions: Syncope (Fainting) (DC)
[2023-03-08 14:06] LABS: ALBUMIN 4.4 g/dL (3.5-5.0); ALKALINE PHOSPHATASE 79 U/L (38-126); ANION GAP 16.9 MEQ/L (5-15); BLOOD UREA NITROGEN 25 mg/dL (9-20); CHLORIDE 102 mmol/L (98-107); Calcium 9.7 mg/dL (8.4-10.2); Carbon Dioxide 25 mmol/L (22-30); EST GLOMERULAR FILTRATION RATE 43.5 ML/MIN; ETHYL ALCOHOL < 10 mg/dL (0-10); Glucose 209 mg/dL (74-106); Potassium 3.9 mmol/L (3.5-5.1); SGOT/AST 22 U/L (17-59); SGPT/ALT 21 U/L (0-50); SODIUM 140 mmol/L (137-145); Total Protein 7.6 g/dL (6.3-8.2)
--- NOTE | 2023-03-08 14:09 | XRAY ---
Indication: Syncope. Comparison: March 25, 2019 Portable chest again demonstrates normal heart and lungs with incidental calcified granulomas. Bony thorax intact again with mild degenerative changes. No new/acute findings.
--- NOTE | 2023-03-08 14:11 | XRAY ---
Indication: Syncope. Multiple contiguous axial images obtained through the head without contrast. Comparison: August 09, 2017 Age-appropriate global atrophy and minimal periventricular degenerative micro-ischemia bilaterally. No acute intracranial hemorrhage, abnormal extra-axial fluid collection, or mass effect. Fourth ventricle is midline without hydrocephalus. Hightower-white matter differentiation preserved. Bony calvarium intact.. Mild mucosal thickening right maxillary sinus with again bilateral maxillary sinus antrectomy. Mastoid air cells are clear. Impression: Right maxillary sinus disease. Otherwise nonacute senile brain.
[2023-03-08 14:12] LABS: D-DIMER QUANTITATIVE 0.46 mg/L (0.0-0.50); INR 0.92 (0.8-3.0); PROTIME 10.1 SECONDS (9.4-12.5)
[2023-03-08 16:19] LABS: Glucose 103 mg/dL (74-106); TROPONIN < 0.012 ng/mL (0.000-0.034)
[2023-03-08 16:26] LABS: Benzodiazepine,Urine NEGATIVE (NEGATIVE); Cocaine,Urine NEGATIVE (NEGATIVE); Opiate,Urine NEGATIVE (NEGATIVE); PCP,Urine NEGATIVE (NEGATIVE); THC,Urine NEGATIVE (NEGATIVE)
[2023-03-08 16:29] LABS: Barbiturate,Urine NEGATIVE (NEGATIVE)
[2023-03-08 16:31] LABS: Amphetamine,Urine NEGATIVE (NEGATIVE)
[2023-03-08 16:36] LABS: ADD URINE CULTURE? NO (NO); Appearance Clear (Clear); Bacteria Rare /HPF (None Seen); Bilirubin Negative (Negative); Blood Negative (Negative); Epithelial Cells Rare /HPF (None Seen); Glucose, Urine 500 mg/dL (Negative); Hyaline Casts 0-2 /LPF (0-2); Ketones Trace (Negative); Leukocyte Esterase Negative (Negative); Methadone,Urine NEGATIVE (NEGATIVE); Nitrite Negative (Negative); Protein,Urine Dip 100 (Negative); RBC 0-2 /HPF (0-5); Specific Gravity >=1.030 (1.005-1.030); Urobilinogen 0.2 mg/dL (0.2); WBC 0-2 /HPF (0-5)
[2023-03-08] MEDS: Sodium Chloride 0.9% 1000 ML 1,000 ML IV SCH (17:09)
[2023-03-08] MEDS: TYLENOL 325 MG PO PRN (18:46)
[2023-03-08] MEDS: NEURONTIN PO SCH (21:06)
[2023-03-08] MEDS: HUMALOG SQ PRN (21:59)
[2023-03-09] MEDS: Sodium Chloride 0.9% 1000 ML 1,000 ML IV SCH ×2 (00:44→07:24)
[2023-03-09 05:00] LABS: Absolute Neutrophil Ct (ANC) 3.52 x10^3/uL (1.4-6.9); BASOPHIL % 1.2 % (0.0-0.4); Basophil (Absolute #) 0.08 x10^3/uL (0-0.4); Eosinophil % 1.5 % (0.00-5.0); Hematocrit 33.2 % (42-50); Hemoglobin 10.9 g/dL (12.5-18.0); IMMATURE GRAN # 0.01 x10^3u/L (0.00-0.03); IMMATURE GRAN % 0.2 % (0.00-0.4); Lymphocyte (Absolute #) 2.24 x10^3/uL (1.0-4.6); Lymphocytes % 34.3 % (24.0-44.0); Mean Cell Volume 90.2 fL (78-100); Mean Corpuscular Hemoglobin 29.6 pg (26-32); Mean Corpuscular Hgb Concent. 32.8 g/dL (32-36); Monocyte (Absolute #) 0.59 x10^3/uL (0.0-1.3); Neutrophil % 53.8 % (36.0-66.0); Platelet Count 227 x10^3/uL (150-450); Red Blood Count 3.68 x10^6/uL (4.1-5.6); White Blood Count 6.5 x10^3/uL (4.0-10.5)
[2023-03-09 05:32] LABS: ALBUMIN 3.3 g/dL (3.5-5.0); ALKALINE PHOSPHATASE 67 U/L (38-126); ANION GAP 11.9 MEQ/L (5-15); BLOOD UREA NITROGEN 17 mg/dL (9-20); CHLORIDE 110 mmol/L (98-107); Calcium 8.2 mg/dL (8.4-10.2); Carbon Dioxide 24 mmol/L (22-30); EST GLOMERULAR FILTRATION RATE > 60.0 ML/MIN; Glucose 85 mg/dL (74-106); Potassium 3.8 mmol/L (3.5-5.1); SGOT/AST 22 U/L (17-59); SGPT/ALT 16 U/L (0-50); SODIUM 142 mmol/L (137-145)
[2023-03-09] MEDS: TYLENOL 325 MG PO PRN (07:45)
--- NOTE | 2023-03-09 07:47 | PCM.HP ---
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 He has been working today and got extreme extremely hot he was excessively sweating and he had a syncopal episode. He is blood sugar was found to rate high on the glucometer by EMS they gave 15 units of NovoLog and his blood sugar came down to 227 upon his arrival in the ER. Heart rate was 78 his blood pressure was 90/50 on arrival but had been as low as 88/30 at the scene. He does complain of a severe headache. Witnessed: by family Prior Episodes: single episode today Timing/Duration: today Precipitating Factors: unknown Context: other (Physical exertion at work with excessive sweating.) Loss of Consciousness: brief (seconds) Charcter of event(s): collapsed, became unresponsive - Review of Systems Constitutional: No Fever, No Chills Eyes: No Symptoms Ears, Nose, & Throat: No Symptoms Respiratory: No Cough, No Short Of Breath Cardiac: No Chest Pain, No Edema, No Syncope Abdominal/Gastrointestinal: No Abdominal Pain, No Nausea, No Vomiting, No Diarrhea Genitourinary Symptoms: No Dysuria Musculoskeletal: No Back Pain, No Neck Pain Skin: No Rash Neurological: Dizziness, No Focal Weakness, No Sensory Changes Psychological: No Symptoms Endocrine: No Symptoms Hematologic/Lymphatic: No Symptoms Immunological/Allergic: No Symptoms Medications & Allergies Home Medications: Home Medication List Insulin Aspart [NovoLOG Insulin] 1 units SQ UD 05/29/16 [History Confirmed 03/08/23] Insulin Glargine [Lantus Insulin] 35 units SQ QAM 03/25/19 [History Confirmed 03/08/23] Ascorbic Acid 500 mg [Vitamin C 500 MG] 1,000 mg PO DAILY 03/08/23 [History Confirmed 03/08/23] Gabapentin [Gralise] 600 mg PO TID 03/08/23 [History Confirmed 03/08/23] Allergies/Adverse Reactions: Allergies Allergy/AdvReac Type Severity Reaction Status Date / Time codeine AdvReac Severe Vomiting Verified 08/08/21 10:10 hydrocodone bitartrate AdvReac Severe Vomiting Verified 08/08/21 10:10 [From Vicodin] propoxyphene AdvReac Verified 08/08/21 10:10 [From Darvocet-N 100] - Past Medical History Past Medical History: Yes Neurological History: No Pertinent History ENT History: No Pertinent History Cardiac History: No Pertinent History Respiratory History: No Pertinent History Endocrine Medical History: Diabetes Type II Musculoskelatal History: No Pertinent History GI Medical History: No Pertinent History History: No Pertinent History Pyscho-Social History: No Pertinent History Male Reproductive Disorders: No Pertinent History Comment: FX L LEG AND FOOT subsequent infection. diarrhea x3 weeks, was hospitalized for gi sx. gangrene, sepsis 2014 - Past Surgical History Past Surgical History: Yes Neuro Surgical History: No Pertinent History Cardiac History: No Pertinent History Respiratory Surgery: No Pertinent History GI Surgical History: Cholecystectomy, Hernia Repair Genitourinary Surgical Hx: No Pertinent History Musculskeletal Surgical Hx: Orthopedic Surgery Male Surgical History: No Pertinent History Other Surgical History: right femur fixed at age 15. left foot broke at age 20. left leg and foot surgery ,,I&D of left foot, polyps removed - Social History Smoking Status: Former smoker Exposure to second hand smoke: Yes Alcohol: Rarely Drug Use: none - Physical Exam Vital Signs: Vital Signs - 24 hr Temp Pulse Resp BP BP Pulse Ox 03/09/23 04:00 97.1 F 69 16 174/79 98 03/08/23 23:16 98.2 F 78 16 148/65 95 03/08/23 19:13 97.3 F 96 H 16 138/77 97 03/08/23 17:26 97.8 F 80 18 124/70 97 03/08/23 16:43 92 L 03/08/23 16:30 82 19 141/109 96 03/08/23 16:15 79 16 127/87 96 03/08/23 16:14 21 94 L 03/08/23 16:10 80 14 95 03/08/23 16:02 17 96 03/08/23 15:00 80 16 122/68 95 03/08/23 14:31 78 17 123/82 94 L 03/08/23 14:26 83 19 122/72 96 03/08/23 14:25 81 26 H 93 L 03/08/23 14:20 86 15 122/72 98 03/08/23 14:10 88 21 96 03/08/23 14:03 82 15 94 L 03/08/23 13:33 83 117/75 General Appearance: no apparent distress, alert Neurologic Exam: alert, oriented x 3, cooperative, normal mood/affect, nml cerebellar function, nml station & gait, sensation nml, No motor deficits Eye Exam: PERRL/EOMI, eyes nml inspection Ears, Nose, Throat Exam: normal ENT inspection, TMs normal, pharynx normal, moist mucous membranes Neck Exam: normal inspection, non-tender, supple, full range of motion Respiratory Exam: normal breath sounds, lungs clear, No respiratory distress Cardiovascular Exam: regular rate/rhythm, normal heart sounds, normal peripheral pulses Gastrointestinal/Abdomen Exam: soft, normal bowel sounds, No tenderness, No mass Back Exam: normal inspection, normal range of motion, No CVA tenderness, No vertebral tenderness Extremity Exam: normal inspection, normal range of motion, pelvis stable Skin Exam: normal color, warm, dry, No rash Lymphatic Exam: No adenopathy Results - Labs Lab/Micro Results: Lab Results-Last 24 Hours 03/08/23 03/08/23 03/08/23 Range/Units 13:45 13:45 13:45 WBC 7.8 (4.0-10.5) x10^3/uL RBC 4.30 (4.1-5.6) x10^6/uL Hgb 12.8 (12.5-18.0) g/dL Hct 38.5 L (42-50) % MCV 89.5 (78-100) fL MCH 29.8 (26-32) pg MCHC 33.2 (32-36) g/dL RDW 13.6 (11.5-14.0) % Plt Count 268 (150-450) x10^3/uL MPV 11.1 H (7.5-11.0) fL Gran % 73.3 H (36.0-66.0) % Immature Gran % (Auto) 0.3 (0.00-0.4) % Nucleat RBC Rel Count 0.0 (0.00-0.1) % Eos # (Auto) 0.05 (0-0.5) x10^3/uL Immature Gran # (Auto) 0.02 (0.00-0.03) x10^3u/L Absolute Lymphs (auto) 1.34 (1.0-4.6) x10^3/uL Absolute Monos (auto) 0.58 (0.0-1.3) x10^3/uL Absolute Nucleated RBC 0.00 (0.00-0.01) x10^3u/L Lymphocytes % 17.2 L (24.0-44.0) % Monocytes % 7.4 (0.0-12.0) % Eosinophils % 0.6 (0.00-5.0) % Basophils % 1.2 (0.0-0.4) % Absolute Granulocytes 5.71 (1.4-6.9) x10^3/uL Basophils # 0.09 (0-0.4) x10^3/uL PT 10.1 (9.4-12.5) SECONDS INR 0.92 (0.8-3.0) D-Dimer 0.46 (0.0-0.50) mg/L Sodium 140 (137-145) mmol/L Potassium 3.9 (3.5-5.1) mmol/L Chloride 102 (98-107) mmol/L Carbon Dioxide 25 (22-30) mmol/L Anion Gap 16.9 H (5-15) MEQ/L BUN 25 H (9-20) mg/dL Creatinine 1.70 H (0.66-1.25) mg/dL Estimated GFR 43.5 ML/MIN Glucose 209 H (74-106) mg/dL POC Glucometer (74 to 106) mg/dL Calcium 9.7 (8.4-10.2) mg/dL Total Bilirubin 1.10 (0.2-1.3) mg/dL AST 22 (17-59) U/L ALT 21 (0-50) U/L Alkaline Phosphatase 79 (38-126) U/L Troponin I (0.000-0.034) ng/mL Serum Total Protein 7.6 (6.3-8.2) g/dL Albumin 4.4 (3.5-5.0) g/dL TSH 3rd Generation (0.47-4.68) mIU/L Urine Color (Yellow) Urine Appearance (Clear) Urine pH (4.6-8.0) Ur Specific [place] (1.005-1.030) Urine Protein (Negative) Urine Glucose (UA) (Negative) mg/dL Urine Ketones (Negative) Urine Blood (Negative) Urine Nitrite (Negative) Urine Bilirubin (Negative) Urine Urobilinogen (0.2) mg/dL Ur Leukocyte Esterase (Negative) U Hyaline Cast (Auto) (0-2) /LPF Urine Microscopic RBC (0-5) /HPF Urine Microscopic WBC (0-5) /HPF Ur Epithelial Cells (None Seen) /HPF Urine Bacteria (None Seen) /HPF Urine Culture Reflexed (NO) Urine Opiates Level (NEGATIVE) Ur Methadone (NEGATIVE) Urine Barbiturates (NEGATIVE) Ur Phencyclidine (PCP) (NEGATIVE) Urine Amphetamine (NEGATIVE) U Benzodiazepine Level (NEGATIVE) Urine Cocaine (NEGATIVE) Urine Marijuana (THC) (NEGATIVE) Ethyl Alcohol < 10 (0-10) mg/dL 03/08/23 03/08/23 03/08/23 Range/Units 13:45 15:34 15:34 WBC (4.0-10.5) x10^3/uL RBC (4.1-5.6) x10^6/uL Hgb (12.5-18.0) g/dL Hct (42-50) % MCV (78-100) fL MCH (26-32) pg MCHC (32-36) g/dL RDW (11.5-14.0) % Plt Count (150-450) x10^3/uL MPV (7.5-11.0) fL Gran % (36.0-66.0) % Immature Gran % (Auto) (0.00-0.4) % Nucleat RBC Rel Count (0.00-0.1) % Eos # (Auto) (0-0.5) x10^3/uL Immature Gran # (Auto) (0.00-0.03) x10^3u/L Absolute Lymphs (auto) (1.0-4.6) x10^3/uL Absolute Monos (auto) (0.0-1.3) x10^3/uL Absolute Nucleated RBC (0.00-0.01) x10^3u/L Lymphocytes % (24.0-44.0) % Monocytes % (0.0-12.0) % Eosinophils % (0.00-5.0) % Basophils % (0.0-0.4) % Absolute Granulocytes (1.4-6.9) x10^3/uL Basophils # (0-0.4) x10^3/uL PT (9.4-12.5) SECONDS INR (0.8-3.0) D-Dimer (0.0-0.50) mg/L Sodium (137-145) mmol/L Potassium (3.5-5.1) mmol/L Chloride (98-107) mmol/L Carbon Dioxide (22-30) mmol/L Anion Gap (5-15) MEQ/L BUN (9-20) mg/dL Creatinine (0.66-1.25) mg/dL Estimated GFR ML/MIN Glucose (74-106) mg/dL POC Glucometer (74 to 106) mg/dL Calcium (8.4-10.2) mg/dL Total Bilirubin (0.2-1.3) mg/dL AST (17-59) U/L ALT (0-50) U/L Alkaline Phosphatase (38-126) U/L Troponin I < 0.012 (0.000-0.034) ng/mL Serum Total Protein (6.3-8.2) g/dL Albumin (3.5-5.0) g/dL TSH 3rd Generation (0.47-4.68) mIU/L Urine Color Yellow (Yellow) Urine Appearance Clear (Clear) Urine pH 5.0 (4.6-8.0) Ur Specific [place] >=1.030 A (1.005-1.030) Urine Protein 100 A (Negative) Urine Glucose (UA) 500 A (Negative) mg/dL Urine Ketones Trace A (Negative) Urine Blood Negative (Negative) Urine Nitrite Negative (Negative) Urine Bilirubin Negative (Negative) Urine Urobilinogen 0.2 (0.2) mg/dL Ur Leukocyte Esterase Negative (Negative) U Hyaline Cast (Auto) 0-2 (0-2) /LPF Urine Microscopic RBC 0-2 (0-5) /HPF Urine Microscopic WBC 0-2 (0-5) /HPF Ur Epithelial Cells Rare (None Seen) /HPF Urine Bacteria Rare A (None Seen) /HPF Urine Culture Reflexed NO (NO) Urine Opiates Level NEGATIVE (NEGATIVE) Ur Methadone NEGATIVE (NEGATIVE) Urine Barbiturates NEGATIVE (NEGATIVE) Ur Phencyclidine (PCP) NEGATIVE (NEGATIVE) Urine Amphetamine NEGATIVE (NEGATIVE) U Benzodiazepine Level NEGATIVE (NEGATIVE) Urine Cocaine NEGATIVE (NEGATIVE) Urine Marijuana (THC) NEGATIVE (NEGATIVE) Ethyl Alcohol (0-10) mg/dL 03/08/23 03/08/23 03/08/23 Range/Units 15:53 17:31 21:00 WBC (4.0-10.5) x10^3/uL RBC (4.1-5.6) x10^6/uL Hgb (12.5-18.0) g/dL Hct (42-50) % MCV (78-100) fL MCH (26-32) pg MCHC (32-36) g/dL RDW (11.5-14.0) % Plt Count (150-450) x10^3/uL MPV (7.5-11.0) fL Gran % (36.0-66.0) % Immature Gran % (Auto) (0.00-0.4) % Nucleat RBC Rel Count (0.00-0.1) % Eos # (Auto) (0-0.5) x10^3/uL Immature Gran # (Auto) (0.00-0.03) x10^3u/L Absolute Lymphs (auto) (1.0-4.6) x10^3/uL Absolute Monos (auto) (0.0-1.3) x10^3/uL Absolute Nucleated RBC (0.00-0.01) x10^3u/L Lymphocytes % (24.0-44.0) % Monocytes % (0.0-12.0) % Eosinophils % (0.00-5.0) % Basophils % (0.0-0.4) % Absolute Granulocytes (1.4-6.9) x10^3/uL Basophils # (0-0.4) x10^3/uL PT (9.4-12.5) SECONDS INR (0.8-3.0) D-Dimer (0.0-0.50) mg/L Sodium (137-145) mmol/L Potassium (3.5-5.1) mmol/L Chloride (98-107) mmol/L Carbon Dioxide (22-30) mmol/L Anion Gap (5-15) MEQ/L BUN (9-20) mg/dL Creatinine (0.66-1.25) mg/dL Estimated GFR ML/MIN Glucose 103 (74-106) mg/dL POC Glucometer 80 (74 to 106) mg/dL Calcium (8.4-10.2) mg/dL Total Bilirubin (0.2-1.3) mg/dL AST (17-59) U/L ALT (0-50) U/L Alkaline Phosphatase (38-126) U/L Troponin I < 0.012 < 0.012 (0.000-0.034) ng/mL Serum Total Protein (6.3-8.2) g/dL Albumin (3.5-5.0) g/dL TSH 3rd Generation (0.47-4.68) mIU/L Urine Color (Yellow) Urine Appearance (Clear) Urine pH (4.6-8.0) Ur Specific [place] (1.005-1.030) Urine Protein (Negative) Urine Glucose (UA) (Negative) mg/dL Urine Ketones (Negative) Urine Blood (Negative) Urine Nitrite (Negative) Urine Bilirubin (Negative) Urine Urobilinogen (0.2) mg/dL Ur Leukocyte Esterase (Negative) U Hyaline Cast (Auto) (0-2) /LPF Urine Microscopic RBC (0-5) /HPF Urine Microscopic WBC (0-5) /HPF Ur Epithelial Cells (None Seen) /HPF Urine Bacteria (None Seen) /HPF Urine Culture Reflexed (NO) Urine Opiates Level (NEGATIVE) Ur Methadone (NEGATIVE) Urine Barbiturates (NEGATIVE) Ur Phencyclidine (PCP) (NEGATIVE) Urine Amphetamine (NEGATIVE) U Benzodiazepine Level (NEGATIVE) Urine Cocaine (NEGATIVE) Urine Marijuana (THC) (NEGATIVE) Ethyl Alcohol (0-10) mg/dL 03/08/23 03/09/23 03/09/23 Range/Units 21:35 04:26 04:26 WBC 6.5 (4.0-10.5) x10^3/uL RBC 3.68 L (4.1-5.6) x10^6/uL Hgb 10.9 L (12.5-18.0) g/dL Hct 33.2 L (42-50) % MCV 90.2 (78-100) fL MCH 29.6 (26-32) pg MCHC 32.8 (32-36) g/dL RDW 14.0 (11.5-14.0) % Plt Count 227 (150-450) x10^3/uL MPV 11.0 (7.5-11.0) fL Gran % 53.8 (36.0-66.0) % Immature Gran % (Auto) 0.2 (0.00-0.4) % Nucleat RBC Rel Count 0.0 (0.00-0.1) % Eos # (Auto) 0.10 (0-0.5) x10^3/uL Immature Gran # (Auto) 0.01 (0.00-0.03) x10^3u/L Absolute Lymphs (auto) 2.24 (1.0-4.6) x10^3/uL Absolute Monos (auto) 0.59 (0.0-1.3) x10^3/uL Absolute Nucleated RBC 0.00 (0.00-0.01) x10^3u/L Lymphocytes % 34.3 (24.0-44.0) % Monocytes % 9.0 (0.0-12.0) % Eosinophils % 1.5 (0.00-5.0) % Basophils % 1.2 (0.0-0.4) % Absolute Granulocytes 3.52 (1.4-6.9) x10^3/uL Basophils # 0.08 (0-0.4) x10^3/uL PT (9.4-12.5) SECONDS INR (0.8-3.0) D-Dimer (0.0-0.50) mg/L Sodium (137-145) mmol/L Potassium (3.5-5.1) mmol/L Chloride (98-107) mmol/L Carbon Dioxide (22-30) mmol/L Anion Gap (5-15) MEQ/L BUN (9-20) mg/dL Creatinine (0.66-1.25) mg/dL Estimated GFR ML/MIN Glucose (74-106) mg/dL POC Glucometer 269 H (74 to 106) mg/dL Calcium (8.4-10.2) mg/dL Total Bilirubin (0.2-1.3) mg/dL AST (17-59) U/L ALT (0-50) U/L Alkaline Phosphatase (38-126) U/L Troponin I (0.000-0.034) ng/mL Serum Total Protein (6.3-8.2) g/dL Albumin (3.5-5.0) g/dL TSH 3rd Generation 1.090 (0.47-4.68) mIU/L Urine Color (Yellow) Urine Appearance (Clear) Urine pH (4.6-8.0) Ur Specific [place] (1.005-1.030) Urine Protein (Negative) Urine Glucose (UA) (Negative) mg/dL Urine Ketones (Negative) Urine Blood (Negative) Urine Nitrite (Negative) Urine Bilirubin (Negative) Urine Urobilinogen (0.2) mg/dL Ur Leukocyte Esterase (Negative) U Hyaline Cast (Auto) (0-2) /LPF Urine Microscopic RBC (0-5) /HPF Urine Microscopic WBC (0-5) /HPF Ur Epithelial Cells (None Seen) /HPF Urine Bacteria (None Seen) /HPF Urine Culture Reflexed (NO) Urine Opiates Level (NEGATIVE) Ur Methadone (NEGATIVE) Urine Barbiturates (NEGATIVE) Ur Phencyclidine (PCP) (NEGATIVE) Urine Amphetamine (NEGATIVE) U Benzodiazepine Level (NEGATIVE) Urine Cocaine (NEGATIVE) Urine Marijuana (THC) (NEGATIVE) Ethyl Alcohol (0-10) mg/dL 03/09/23 03/09/23 Range/Units 04:26 06:50 WBC (4.0-10.5) x10^3/uL RBC (4.1-5.6) x10^6/uL Hgb (12.5-18.0) g/dL Hct (42-50) % MCV (78-100) fL MCH (26-32) pg MCHC (32-36) g/dL RDW (11.5-14.0) % Plt Count (150-450) x10^3/uL MPV (7.5-11.0) fL Gran % (36.0-66.0) % Immature Gran % (Auto) (0.00-0.4) % Nucleat RBC Rel Count (0.00-0.1) % Eos # (Auto) (0-0.5) x10^3/uL Immature Gran # (Auto) (0.00-0.03) x10^3u/L Absolute Lymphs (auto) (1.0-4.6) x10^3/uL Absolute Monos (auto) (0.0-1.3) x10^3/uL Absolute Nucleated RBC (0.00-0.01) x10^3u/L Lymphocytes % (24.0-44.0) % Monocytes % (0.0-12.0) % Eosinophils % (0.00-5.0) % Basophils % (0.0-0.4) % Absolute Granulocytes (1.4-6.9) x10^3/uL Basophils # (0-0.4) x10^3/uL PT (9.4-12.5) SECONDS INR (0.8-3.0) D-Dimer (0.0-0.50) mg/L Sodium 142 (137-145) mmol/L Potassium 3.8 (3.5-5.1) mmol/L Chloride 110 H (98-107) mmol/L Carbon Dioxide 24 (22-30) mmol/L Anion Gap 11.9 (5-15) MEQ/L BUN 17 (9-20) mg/dL Creatinine 0.80 (0.66-1.25) mg/dL Estimated GFR > 60.0 ML/MIN Glucose 85 (74-106) mg/dL POC Glucometer 101 (74 to 106) mg/dL Calcium 8.2 L D (8.4-10.2) mg/dL Total Bilirubin 0.60 (0.2-1.3) mg/dL AST 22 (17-59) U/L ALT 16 (0-50) U/L Alkaline Phosphatase 67 (38-126) U/L Troponin I (0.000-0.034) ng/mL Serum Total Protein 6.0 L (6.3-8.2) g/dL Albumin 3.3 L (3.5-5.0) g/dL TSH 3rd Generation (0.47-4.68) mIU/L Urine Color (Yellow) Urine Appearance (Clear) Urine pH (4.6-8.0) Ur Specific [place] (1.005-1.030) Urine Protein (Negative) Urine Glucose (UA) (Negative) mg/dL Urine Ketones (Negative) Urine Blood (Negative) Urine Nitrite (Negative) Urine Bilirubin (Negative) Urine Urobilinogen (0.2) mg/dL Ur Leukocyte Esterase (Negative) U Hyaline Cast (Auto) (0-2) /LPF Urine Microscopic RBC (0-5) /HPF Urine Microscopic WBC (0-5) /HPF Ur Epithelial Cells (None Seen) /HPF Urine Bacteria (None Seen) /HPF Urine Culture Reflexed (NO) Urine Opiates Level (NEGATIVE) Ur Methadone (NEGATIVE) Urine Barbiturates (NEGATIVE) Ur Phencyclidine (PCP) (NEGATIVE) Urine Amphetamine (NEGATIVE) U Benzodiazepine Level (NEGATIVE) Urine Cocaine (NEGATIVE) Urine Marijuana (THC) (NEGATIVE) Ethyl Alcohol (0-10) mg/dL Accuchecks Date 03/09/23 Date 03/08/23 Time 07:12 - Radiology Impressions Radiology Exams & Impressions: Radiology Procedures Category Date Time Status CHEST 1 VIEW (PORTABLE) Stat Exams 03/08/23 13:30 Completed HEAD WITHOUT CONTRAST [CT] Stat Exams 03/08/23 13:30 Completed Assessment/Plan (1) Syncope and collapse Current Visit: Yes Status: Acute Assessment & Plan: Chief Complaint Diagnosis Syncope Allergies Allergy/AdvReac Type Severity Reaction Status Date / Time codeine AdvReac Severe Vomiting Verified 08/08/21 10:10 hydrocodone bitartrate AdvReac Severe Vomiting Verified 08/08/21 10:10 [From Vicodin] propoxyphene AdvReac Verified 08/08/21 10:10 [From Darvocet-N 100] Vital Signs (Last 24 hours) Temp Pulse Resp BP BP Pulse Ox 03/09/23 04:00 97.1 F 69 16 174/79 98 03/08/23 23:16 98.2 F 78 16 148/65 95 03/08/23 19:13 97.3 F 96 H 16 138/77 97 03/08/23 17:26 97.8 F 80 18 124/70 97 03/08/23 16:43 92 L 03/08/23 16:30 82 19 141/109 96 03/08/23 16:15 79 16 127/87 96 03/08/23 16:14 21 94 L 03/08/23 16:10 80 14 95 03/08/23 16:02 17 96 03/08/23 15:00 80 16 122/68 95 03/08/23 14:31 78 17 123/82 94 L 03/08/23 14:26 83 19 122/72 96 03/08/23 14:25 81 26 H 93 L 03/08/23 14:20 86 15 122/72 98 03/08/23 14:10 88 21 96 03/08/23 14:03 82 15 94 L 03/08/23 13:33 83 117/75 Home Medications Medication Instructions Recorded Confirmed Last Taken Type Ascorbic Acid 500 mg [Vitamin C 1,000 mg PO DAILY 03/08/23 03/08/23 03/08/23 History 500 MG] Gabapentin [Gralise] 600 mg PO TID 03/08/23 03/08/23 03/08/23 History Current Medications Generic Name Dose Route Start Last Admin Trade Name Freq PRN Reason Stop Dose Admin Acetaminophen 650 mg 03/08/23 18:41 03/08/23 18:46 Acetaminophen 325 Mg Tablet PO 04/07/23 18:40 650 mg Q4H PRN PRN Administration PAIN AND/OR FEVER Ascorbic Acid 1,000 mg 03/09/23 10:00 Ascorbic Acid 500 Mg Tablet PO 04/08/23 09:59 DAILY AURA Gabapentin 600 mg 03/08/23 22:00 03/08/23 21:06 Gabapentin 300 Mg Capsule PO 04/07/23 21:59 600 mg TID AURA Administration Sodium Chloride 1,000 mls @ 150 mls/hr 03/08/23 16:45 03/09/23 07:24 Sodium Chloride 0.9% 1000 Ml IV 04/07/23 16:44 150 mls/hr .Q6H40M AURA Administration Insulin Glargine 35 unit 03/09/23 10:00 Insulin Glargine 1 Unit SQ 04/08/23 09:59 QAM AURA Insulin Human Lispro 0 unit 03/08/23 16:47 03/08/23 21:59 Insulin Lispro 1 Unit SQ 04/07/23 16:46 7 unit UD PRN Administration HYPERGLYCEMIA Discontinued Medications Generic Name Dose Route Start Last Admin Trade Name Freq PRN Reason Stop Dose Admin Sodium Chloride 1,000 mls @ 999 mls/hr 03/08/23 13:30 03/08/23 14:45 Sodium Chloride 0.9% 1000 Ml IV 03/08/23 14:30 Infused .Q1H1M STA Infusion Sodium Chloride Confirm 03/08/23 13:40 Sodium Chloride 0.9% 1000 Ml Administered 03/08/23 13:41 Dose 1,000 mls @ ud .ROUTE .STK-MED ONE Sodium Chloride 1,000 mls @ 999 mls/hr 03/08/23 14:37 03/08/23 15:44 Sodium Chloride 0.9% 1000 Ml IV 03/08/23 15:37 Infused .Q1H1M STA Infusion Sodium Chloride Confirm 03/08/23 14:40 Sodium Chloride 0.9% 1000 Ml Administered 03/08/23 14:41 Dose 1,000 mls @ ud .ROUTE .STK-MED ONE Intake & Output (Last 24 hours) 03/06/23 03/07/23 03/08/23 03/09/23 11:59 11:59 11:59 11:59 Intake Total 2153 Balance 2153 Weight 81.2 kg Laboratory Results (Last 24 hours) 03/09/23 03/09/23 03/09/23 06:50 04:26 04:26 WBC 6.5 RBC 3.68 L Hgb 10.9 L Hct 33.2 L MCV 90.2 MCH 29.6 MCHC 32.8 RDW 14.0 Plt Count 227 MPV 11.0 Gran % 53.8 Immature Gran % (Auto) 0.2 Nucleat RBC Rel Count 0.0 Eos # (Auto) 0.10 Immature Gran # (Auto) 0.01 Absolute Lymphs (auto) 2.24 Absolute Monos (auto) 0.59 Absolute Nucleated RBC 0.00 Lymphocytes % 34.3 Monocytes % 9.0 Eosinophils % 1.5 Basophils % 1.2 Absolute Granulocytes 3.52 Basophils # 0.08 PT INR D-Dimer Sodium 142 Potassium 3.8 Chloride 110 H Carbon Dioxide 24 Anion Gap 11.9 BUN 17 Creatinine 0.80 Estimated GFR > 60.0 Glucose 85 POC Glucometer 101 Calcium 8.2 L D Total Bilirubin 0.60 AST 22 ALT 16 Alkaline Phosphatase 67 Troponin I Serum Total Protein 6.0 L Albumin 3.3 L TSH 3rd Generation Urine Color Urine Appearance Urine pH Ur Specific [place] Urine Protein Urine Glucose (UA) Urine Ketones Urine Blood Urine Nitrite Urine Bilirubin Urine Urobilinogen Ur Leukocyte Esterase U Hyaline Cast (Auto) Urine Microscopic RBC Urine Microscopic WBC Ur Epithelial Cells Urine Bacteria Urine Culture Reflexed Urine Opiates Level Ur Methadone Urine Barbiturates Ur Phencyclidine (PCP) Urine Amphetamine U Benzodiazepine Level Urine Cocaine Urine Marijuana (THC) Ethyl Alcohol 03/09/23 03/08/23 03/08/23 04:26 21:35 21:00 WBC RBC Hgb Hct MCV MCH MCHC RDW Plt Count MPV Gran % Immature Gran % (Auto) Nucleat RBC Rel Count Eos # (Auto) Immature Gran # (Auto) Absolute Lymphs (auto) Absolute Monos (auto) Absolute Nucleated RBC Lymphocytes % Monocytes % Eosinophils % Basophils % Absolute Granulocytes Basophils # PT INR D-Dimer Sodium Potassium Chloride Carbon Dioxide Anion Gap BUN Creatinine Estimated GFR Glucose POC Glucometer 269 H Calcium Total Bilirubin AST ALT Alkaline Phosphatase Troponin I < 0.012 Serum Total Protein Albumin TSH 3rd Generation 1.090 Urine Color Urine Appearance Urine pH Ur Specific [place] Urine Protein Urine Glucose (UA) Urine Ketones Urine Blood Urine Nitrite Urine Bilirubin Urine Urobilinogen Ur Leukocyte Esterase U Hyaline Cast (Auto) Urine Microscopic RBC Urine Microscopic WBC Ur Epithelial Cells Urine Bacteria Urine Culture Reflexed Urine Opiates Level Ur Methadone Urine Barbiturates Ur Phencyclidine (PCP) Urine Amphetamine U Benzodiazepine Level Urine Cocaine Urine Marijuana (THC) Ethyl Alcohol 03/08/23 03/08/23 03/08/23 17:31 15:53 15:34 WBC RBC Hgb Hct MCV MCH MCHC RDW Plt Count MPV Gran % Immature Gran % (Auto) Nucleat RBC Rel Count Eos # (Auto) Immature Gran # (Auto) Absolute Lymphs (auto) Absolute Monos (auto) Absolute Nucleated RBC Lymphocytes % Monocytes % Eosinophils % Basophils % Absolute Granulocytes Basophils # PT INR D-Dimer Sodium Potassium Chloride Carbon Dioxide Anion Gap BUN Creatinine Estimated GFR Glucose 103 POC Glucometer 80 Calcium Total Bilirubin AST ALT Alkaline Phosphatase Troponin I < 0.012 Serum Total Protein Albumin TSH 3rd Generation Urine Color Urine Appearance Urine pH Ur Specific [place] Urine Protein Urine Glucose (UA) Urine Ketones Urine Blood Urine Nitrite Urine Bilirubin Urine Urobilinogen Ur Leukocyte Esterase U Hyaline Cast (Auto) Urine Microscopic RBC Urine Microscopic WBC Ur Epithelial Cells Urine Bacteria Urine Culture Reflexed Urine Opiates Level NEGATIVE Ur Methadone NEGATIVE Urine Barbiturates NEGATIVE Ur Phencyclidine (PCP) NEGATIVE Urine Amphetamine NEGATIVE U Benzodiazepine Level NEGATIVE Urine Cocaine NEGATIVE Urine Marijuana (THC) NEGATIVE Ethyl Alcohol 03/08/23 03/08/23 03/08/23 15:34 13:45 13:45 WBC RBC Hgb Hct MCV MCH MCHC RDW Plt Count MPV Gran % Immature Gran % (Auto) Nucleat RBC Rel Count Eos # (Auto) Immature Gran # (Auto) Absolute Lymphs (auto) Absolute Monos (auto) Absolute Nucleated RBC Lymphocytes % Monocytes % Eosinophils % Basophils % Absolute Granulocytes Basophils # PT 10.1 INR 0.92 D-Dimer 0.46 Sodium Potassium Chloride Carbon Dioxide Anion Gap BUN Creatinine Estimated GFR Glucose POC Glucometer Calcium Total Bilirubin AST ALT Alkaline Phosphatase Troponin I < 0.012 Serum Total Protein Albumin TSH 3rd Generation Urine Color Yellow Urine Appearance Clear Urine pH 5.0 Ur Specific [place] >=1.030 A Urine Protein 100 A Urine Glucose (UA) 500 A Urine Ketones Trace A Urine Blood Negative Urine Nitrite Negative Urine Bilirubin Negative Urine Urobilinogen 0.2 Ur Leukocyte Esterase Negative U Hyaline Cast (Auto) 0-2 Urine Microscopic RBC 0-2 Urine Microscopic WBC 0-2 Ur Epithelial Cells Rare Urine Bacteria Rare A Urine Culture Reflexed NO Urine Opiates Level Ur Methadone Urine Barbiturates Ur Phencyclidine (PCP) Urine Amphetamine U Benzodiazepine Level Urine Cocaine Urine Marijuana (THC) Ethyl Alcohol 03/08/23 03/08/23 13:45 13:45 WBC 7.8 RBC 4.30 Hgb 12.8 Hct 38.5 L MCV 89.5 MCH 29.8 MCHC 33.2 RDW 13.6 Plt Count 268 MPV 11.1 H Gran % 73.3 H Immature Gran % (Auto) 0.3 Nucleat RBC Rel Count 0.0 Eos # (Auto) 0.05 Immature Gran # (Auto) 0.02 Absolute Lymphs (auto) 1.34 Absolute Monos (auto) 0.58 Absolute Nucleated RBC 0.00 Lymphocytes % 17.2 L Monocytes % 7.4 Eosinophils % 0.6 Basophils % 1.2 Absolute Granulocytes 5.71 Basophils # 0.09 PT INR D-Dimer Sodium 140 Potassium 3.9 Chloride 102 Carbon Dioxide 25 Anion Gap 16.9 H BUN 25 H Creatinine 1.70 H Estimated GFR 43.5 Glucose 209 H POC Glucometer Calcium 9.7 Total Bilirubin 1.10 AST 22 ALT 21 Alkaline Phosphatase 79 Troponin I Serum Total Protein 7.6 Albumin 4.4 TSH 3rd Generation Urine Color Urine Appearance Urine pH Ur Specific [place] Urine Protein Urine Glucose (UA) Urine Ketones Urine Blood Urine Nitrite Urine Bilirubin Urine Urobilinogen Ur Leukocyte Esterase U Hyaline Cast (Auto) Urine Microscopic RBC Urine Microscopic WBC Ur Epithelial Cells Urine Bacteria Urine Culture Reflexed Urine Opiates Level Ur Methadone Urine Barbiturates Ur Phencyclidine (PCP) Urine Amphetamine U Benzodiazepine Level Urine Cocaine Urine Marijuana (THC) Ethyl Alcohol < 10 Orders (Last 24 hours) Category Date Time Status Up Ad [place] ROUTINE Activity 03/08/23 16:46 Active Fire Control Technician G STAT Care 03/08/23 13:30 Completed Clean Catch Urine Specimen STAT Care 03/08/23 13:30 Completed Code Status Order ROUTINE Care 03/08/23 16:44 Active EKG-ER Only STAT Care 03/08/23 13:30 Completed IV Care Q6H Care 03/08/23 16:44 Active IV Insertion STAT Care 03/08/23 13:30 Completed POCT Glucose Check ACHS Care 03/08/23 16:[address] in Observation ROUTINE Care 03/08/23 16:44 Active August Mathis, [place] ROUTINE Care 03/08/23 16:44 Active Telemetry q6h Care 03/08/23 16:44 Active Vital Signs Q4H Care 03/08/23 16:44 Completed Weight,Daily 0600 Care 03/08/23 16:44 Active Consistent Carbohydrate Diet 1800 Calorie Diet 03/08/23 Dinner Active CHEST 1 VIEW (PORTABLE) Stat Exams 03/08/23 13:30 Completed HEAD WITHOUT CONTRAST [CT] Stat Exams 03/08/23 13:30 Completed CBC W DIFF AM.LAB Lab 03/09/23 04:26 Results CBC W DIFF Stat Lab 03/08/23 13:45 Completed CMP AM.LAB Lab 03/09/23 04:26 Completed CMP Stat Lab 03/08/23 13:45 Completed D-DIMER QUANTITATIVE Stat Lab 03/08/23 13:45 Completed ETHYL ALCOHOL Stat Lab 03/08/23 13:45 Completed Glucose Stat Lab 03/08/23 15:53 Completed HEMOGLOBIN A1C Routine Lab 03/09/23 04:26 Received POCT GLUCOSE Stat Lab 03/08/23 17:31 Completed POCT GLUCOSE Stat Lab 03/08/23 21:35 Completed POCT GLUCOSE Stat Lab 03/09/23 06:50 Completed PROTIME WITH INR Stat Lab 03/08/23 13:45 Completed TROPONIN Q4H Lab 03/08/23 13:45 Completed TROPONIN Q4H Lab 03/08/23 15:53 Completed TROPONIN Q4H Lab 03/08/23 21:00 Completed TSH [TSH, 3RD Generation] AM.LAB Lab 03/09/23 04:26 Completed UA W/RFX UR CULTURE Stat Lab 03/08/23 15:34 Completed Urine Triage Profile Stat Lab 03/08/23 15:34 Completed Acetaminophen 325 mg [Tylenol 325 mg] Med 03/08/23 18:41 Active 650 mg PO Q4H PRN PRN Ascorbic Acid 500 mg [Vitamin C 500 MG] Med 03/09/23 10:00 Active 1,000 mg PO DAILY Gabapentin [Neurontin ] Med 03/08/23 22:00 Active 600 mg PO TID Insulin Glargine [Lantus Insulin] Med 03/09/23 10:00 Active 35 unit SQ QAM Insulin Lispro [Humalog] Med 03/08/23 16:47 Active See Dose Instructions SQ UD PRN NaCl 0.9% 1000 ml [Sodium Chloride 0.9% 1000 ML] 1,000 Med 03/08/23 13:40 Discontinued ml .ROUTE UD NaCl 0.9% 1000 ml [Sodium Chloride 0.9% 1000 ML] 1,000 Med 03/08/23 14:40 Discontinued ml .ROUTE UD NaCl 0.9% 1000 ml [Sodium Chloride 0.9% 1000 ML] 1,000 Med 03/08/23 16:45 Active ml IV 150 mls/hr NaCl 0.9% 1000 ml [Sodium Chloride 0.9% 1000 ML] 1,000 Med 03/08/23 13:30 Discontinued ml IV 999 mls/hr NaCl 0.9% 1000 ml [Sodium Chloride 0.9% 1000 ML] 1,000 Med 03/08/23 14:37 Discontinued ml IV 999 mls/hr Code(s): R55 - SYNCOPE AND COLLAPSE (2) IDDM (insulin dependent diabetes mellitus) Current Visit: Yes Status: Acute Code(s): [id number] -
[2023-03-09 08:01] VITALS: O2SAT 97
[2023-03-09] MEDS: NEURONTIN PO SCH (09:36)
[2023-03-09] MEDS ORDERED: Lantus Insulin SQ SCH (10:00)
[2023-03-09] MEDS ORDERED: Vitamin C 500 MG PO SCH (10:00)
[2023-03-09] MEDS: HUMALOG SQ PRN (11:55)
[2023-03-09 12:03] VITALS: BP 170/85; PULSE 70
--- NOTE | 2023-03-09 13:08 | PCM.DS ---
Discharge Summary Date of Admission: 03/08/23 17:17 Admitting Physician: RUSTY ORTIZ Primary Care Provider: RUSTY ORTIZ Allergies Allergies codeine Adverse Reaction (Severe, Verified 08/08/21 10:10) Vomiting hydrocodone bitartrate [From Vicodin] Adverse Reaction (Severe, Verified 08/08/21 10:10) Vomiting propoxyphene [From Darvocet-N 100] Adverse Reaction (Verified 08/08/21 10:10) Hospital Summary - Hospital Course Hospital Course: Chief Complaint Diagnosis Syncope Allergies Allergy/AdvReac Type Severity Reaction Status Date / Time codeine AdvReac Severe Vomiting Verified 08/08/21 10:10 hydrocodone bitartrate AdvReac Severe Vomiting Verified 08/08/21 10:10 [From Vicodin] propoxyphene AdvReac Verified 08/08/21 10:10 [From Darvocet-N 100] Vital Signs (Last 24 hours) Temp Pulse Resp BP BP Pulse Ox 03/09/23 12:00 97.5 F 70 17 170/85 97 03/09/23 08:00 97.7 F 71 16 143/83 97 03/09/23 04:00 97.1 F 69 16 174/79 98 03/08/23 23:16 98.2 F 78 16 148/65 95 03/08/23 19:13 97.3 F 96 H 16 138/77 97 03/08/23 17:26 97.8 F 80 18 124/70 97 03/08/23 16:43 92 L 03/08/23 16:30 82 19 141/109 96 03/08/23 16:15 79 16 127/87 96 03/08/23 16:14 21 94 L 03/08/23 16:10 80 14 95 03/08/23 16:02 17 96 03/08/23 15:00 80 16 122/68 95 03/08/23 14:31 78 17 123/82 94 L 03/08/23 14:26 83 19 122/72 96 03/08/23 14:25 81 26 H 93 L 03/08/23 14:20 86 15 122/72 98 03/08/23 14:10 88 21 96 03/08/23 14:03 82 15 94 L 03/08/23 13:33 83 117/75 Home Medications Medication Instructions Recorded Confirmed Last Taken Type Ascorbic Acid 500 mg [Vitamin C 1,000 mg PO DAILY 03/08/23 03/08/23 03/08/23 History 500 MG] Gabapentin [Gralise] 600 mg PO TID 03/08/23 03/08/23 03/08/23 History Current Medications Generic Name Dose Route Start Last Admin Trade Name Vickie PRN Reason Stop Dose Admin Acetaminophen 650 mg 03/08/23 18:41 03/09/23 07:45 Acetaminophen 325 Mg Tablet PO 04/07/23 18:40 650 mg Q4H PRN PRN Administration PAIN AND/OR FEVER Ascorbic Acid 1,000 mg 03/09/23 10:00 03/09/23 09:36 Ascorbic Acid 500 Mg Tablet PO 04/08/23 09:59 1,000 mg DAILY AURA Administration Gabapentin 600 mg 03/08/23 22:00 03/09/23 09:36 Gabapentin 300 Mg Capsule PO 04/07/23 21:59 600 mg TID AURA Administration Sodium Chloride 1,000 mls @ 150 mls/hr 03/08/23 16:45 03/09/23 07:24 Sodium Chloride 0.9% 1000 Ml IV 04/07/23 16:44 150 mls/hr .Q6H40M AURA Administration Insulin Glargine 35 unit 03/09/23 10:00 03/09/23 09:37 Insulin Glargine 1 Unit SQ 04/08/23 09:59 35 unit QAM AURA Administration Insulin Human Lispro 0 unit 03/08/23 16:47 03/09/23 11:55 Insulin Lispro 1 Unit SQ 04/07/23 16:46 5 unit UD PRN Administration HYPERGLYCEMIA Discontinued Medications Generic Name Dose Route Start Last Admin Trade Name Vickie PRN Reason Stop Dose Admin Sodium Chloride 1,000 mls @ 999 mls/hr 03/08/23 13:30 03/08/23 14:45 Sodium Chloride 0.9% 1000 Ml IV 03/08/23 14:30 Infused .Q1H1M STA Infusion Sodium Chloride Confirm 03/08/23 13:40 Sodium Chloride 0.9% 1000 Ml Administered 03/08/23 13:41 Dose 1,000 mls @ ud .ROUTE .STK-MED ONE Sodium Chloride 1,000 mls @ 999 mls/hr 03/08/23 14:37 03/08/23 15:44 Sodium Chloride 0.9% 1000 Ml IV 03/08/23 15:37 Infused .Q1H1M STA Infusion Sodium Chloride Confirm 03/08/23 14:40 Sodium Chloride 0.9% 1000 Ml Administered 03/08/23 14:41 Dose 1,000 mls @ ud .ROUTE .STK-MED ONE Intake & Output (Last 24 hours) 03/07/23 03/08/23 03/09/23 03/10/23 11:59 11:59 11:59 11:59 Intake Total 2273 Balance 2273 Weight 81.2 kg Laboratory Results (Last 24 hours) 03/09/23 03/09/23 03/09/23 11:47 06:50 04:26 WBC RBC Hgb Hct MCV MCH MCHC RDW Plt Count MPV Gran % Immature Gran % (Auto) Nucleat RBC Rel Count Eos # (Auto) Immature Gran # (Auto) Absolute Lymphs (auto) Absolute Monos (auto) Absolute Nucleated RBC Lymphocytes % Monocytes % Eosinophils % Basophils % Absolute Granulocytes Basophils # PT INR D-Dimer Sodium 142 Potassium 3.8 Chloride 110 H Carbon Dioxide 24 Anion Gap 11.9 BUN 17 Creatinine 0.80 Estimated GFR > 60.0 Glucose 85 POC Glucometer 237 H 101 Calcium 8.2 L D Total Bilirubin 0.60 AST 22 ALT 16 Alkaline Phosphatase 67 Troponin I Serum Total Protein 6.0 L Albumin 3.3 L TSH 3rd Generation Urine Color Urine Appearance Urine pH Ur Specific [place] Urine Protein Urine Glucose (UA) Urine Ketones Urine Blood Urine Nitrite Urine Bilirubin Urine Urobilinogen Ur Leukocyte Esterase U Hyaline Cast (Auto) Urine Microscopic RBC Urine Microscopic WBC Ur Epithelial Cells Urine Bacteria Urine Culture Reflexed Urine Opiates Level Ur Methadone Urine Barbiturates Ur Phencyclidine (PCP) Urine Amphetamine U Benzodiazepine Level Urine Cocaine Urine Marijuana (THC) Ethyl Alcohol 03/09/23 03/09/23 03/08/23 04:26 04:26 21:35 WBC 6.5 RBC 3.68 L Hgb 10.9 L Hct 33.2 L MCV 90.2 MCH 29.6 MCHC 32.8 RDW 14.0 Plt Count 227 MPV 11.0 Gran % 53.8 Immature Gran % (Auto) 0.2 Nucleat RBC Rel Count 0.0 Eos # (Auto) 0.10 Immature Gran # (Auto) 0.01 Absolute Lymphs (auto) 2.24 Absolute Monos (auto) 0.59 Absolute Nucleated RBC 0.00 Lymphocytes % 34.3 Monocytes % 9.0 Eosinophils % 1.5 Basophils % 1.2 Absolute Granulocytes 3.52 Basophils # 0.08 PT INR D-Dimer Sodium Potassium Chloride Carbon Dioxide Anion Gap BUN Creatinine Estimated GFR Glucose POC Glucometer 269 H Calcium Total Bilirubin AST ALT Alkaline Phosphatase Troponin I Serum Total Protein Albumin TSH 3rd Generation 1.090 Urine Color Urine Appearance Urine pH Ur Specific [place] Urine Protein Urine Glucose (UA) Urine Ketones Urine Blood Urine Nitrite Urine Bilirubin Urine Urobilinogen Ur Leukocyte Esterase U Hyaline Cast (Auto) Urine Microscopic RBC Urine Microscopic WBC Ur Epithelial Cells Urine Bacteria Urine Culture Reflexed Urine Opiates Level Ur Methadone Urine Barbiturates Ur Phencyclidine (PCP) Urine Amphetamine U Benzodiazepine Level Urine Cocaine Urine Marijuana (THC) Ethyl Alcohol 03/08/23 03/08/23 03/08/23 21:00 17:31 15:53 WBC RBC Hgb Hct MCV MCH MCHC RDW Plt Count MPV Gran % Immature Gran % (Auto) Nucleat RBC Rel Count Eos # (Auto) Immature Gran # (Auto) Absolute Lymphs (auto) Absolute Monos (auto) Absolute Nucleated RBC Lymphocytes % Monocytes % Eosinophils % Basophils % Absolute Granulocytes Basophils # PT INR D-Dimer Sodium Potassium Chloride Carbon Dioxide Anion Gap BUN Creatinine Estimated GFR Glucose 103 POC Glucometer 80 Calcium Total Bilirubin AST ALT Alkaline Phosphatase Troponin I < 0.012 < 0.012 Serum Total Protein Albumin TSH 3rd Generation Urine Color Urine Appearance Urine pH Ur Specific [place] Urine Protein Urine Glucose (UA) Urine Ketones Urine Blood Urine Nitrite Urine Bilirubin Urine Urobilinogen Ur Leukocyte Esterase U Hyaline Cast (Auto) Urine Microscopic RBC Urine Microscopic WBC Ur Epithelial Cells Urine Bacteria Urine Culture Reflexed Urine Opiates Level Ur Methadone Urine Barbiturates Ur Phencyclidine (PCP) Urine Amphetamine U Benzodiazepine Level Urine Cocaine Urine Marijuana (THC) Ethyl Alcohol 03/08/23 03/08/23 03/08/23 15:34 15:34 13:45 WBC RBC Hgb Hct MCV MCH MCHC RDW Plt Count MPV Gran % Immature Gran % (Auto) Nucleat RBC Rel Count Eos # (Auto) Immature Gran # (Auto) Absolute Lymphs (auto) Absolute Monos (auto) Absolute Nucleated RBC Lymphocytes % Monocytes % Eosinophils % Basophils % Absolute Granulocytes Basophils # PT INR D-Dimer Sodium Potassium Chloride Carbon Dioxide Anion Gap BUN Creatinine Estimated GFR Glucose POC Glucometer Calcium Total Bilirubin AST ALT Alkaline Phosphatase Troponin I < 0.012 Serum Total Protein Albumin TSH 3rd Generation Urine Color Yellow Urine Appearance Clear Urine pH 5.0 Ur Specific [place] >=1.030 A Urine Protein 100 A Urine Glucose (UA) 500 A Urine Ketones Trace A Urine Blood Negative Urine Nitrite Negative Urine Bilirubin Negative Urine Urobilinogen 0.2 Ur Leukocyte Esterase Negative U Hyaline Cast (Auto) 0-2 Urine Microscopic RBC 0-2 Urine Microscopic WBC 0-2 Ur Epithelial Cells Rare Urine Bacteria Rare A Urine Culture Reflexed NO Urine Opiates Level NEGATIVE Ur Methadone NEGATIVE Urine Barbiturates NEGATIVE Ur Phencyclidine (PCP) NEGATIVE Urine Amphetamine NEGATIVE U Benzodiazepine Level NEGATIVE Urine Cocaine NEGATIVE Urine Marijuana (THC) NEGATIVE Ethyl Alcohol 03/08/23 03/08/23 03/08/23 13:45 13:45 13:45 WBC 7.8 RBC 4.30 Hgb 12.8 Hct 38.5 L MCV 89.5 MCH 29.8 MCHC 33.2 RDW 13.6 Plt Count 268 MPV 11.1 H Gran % 73.3 H Immature Gran % (Auto) 0.3 Nucleat RBC Rel Count 0.0 Eos # (Auto) 0.05 Immature Gran # (Auto) 0.02 Absolute Lymphs (auto) 1.34 Absolute Monos (auto) 0.58 Absolute Nucleated RBC 0.00 Lymphocytes % 17.2 L Monocytes % 7.4 Eosinophils % 0.6 Basophils % 1.2 Absolute Granulocytes 5.71 Basophils # 0.09 PT 10.1 INR 0.92 D-Dimer 0.46 Sodium 140 Potassium 3.9 Chloride 102 Carbon Dioxide 25 Anion Gap 16.9 H BUN 25 H Creatinine 1.70 H Estimated GFR 43.5 Glucose 209 H POC Glucometer Calcium 9.7 Total Bilirubin 1.10 AST 22 ALT 21 Alkaline Phosphatase 79 Troponin I Serum Total Protein 7.6 Albumin 4.4 TSH 3rd Generation Urine Color Urine Appearance Urine pH Ur Specific [place] Urine Protein Urine Glucose (UA) Urine Ketones Urine Blood Urine Nitrite Urine Bilirubin Urine Urobilinogen Ur Leukocyte Esterase U Hyaline Cast (Auto) Urine Microscopic RBC Urine Microscopic WBC Ur Epithelial Cells Urine Bacteria Urine Culture Reflexed Urine Opiates Level Ur Methadone Urine Barbiturates Ur Phencyclidine (PCP) Urine Amphetamine U Benzodiazepine Level Urine Cocaine Urine Marijuana (THC) Ethyl Alcohol < 10 Orders (Last 24 hours) Category Date Time Status Up Ad Katlyn ROUTINE Activity 03/08/23 16:46 Active Head Soft Sugar Operator STAT Care 03/08/23 13:30 Completed Clean Catch Urine Specimen STAT Care 03/08/23 13:30 Completed Code Status Order ROUTINE Care 03/08/23 16:44 Active EKG-ER Only STAT Care 03/08/23 13:30 Completed IV Care Q6H Care 03/08/23 16:44 Active IV Insertion STAT Care 03/08/23 13:30 Completed POCT Glucose Check ACHS Care 03/08/23 16:[address] in Observation ROUTINE Care 03/08/23 16:44 Active August Mathis, Apply ROUTINE Care 03/08/23 16:44 Active Telemetry q6h Care 03/08/23 16:44 Active Vital Signs Q4H Care 03/08/23 16:44 Completed Weight,Daily 0600 Care 03/08/23 16:44 Active Consistent Carbohydrate Diet 1800 Calorie Diet 03/08/23 Dinner Active Discharge Routine Discharge 03/09/23 Unverified CHEST 1 VIEW (PORTABLE) Stat Exams 03/08/23 13:30 Completed HEAD WITHOUT CONTRAST [CT] Stat Exams 03/08/23 13:30 Completed CBC W DIFF AM.LAB Lab 03/09/23 04:26 Completed CBC W DIFF Stat Lab 03/08/23 13:45 Completed CMP AM.LAB Lab 03/09/23 04:26 Completed CMP Stat Lab 03/08/23 13:45 Completed D-DIMER QUANTITATIVE Stat Lab 03/08/23 13:45 Completed ETHYL ALCOHOL Stat Lab 03/08/23 13:45 Completed Glucose Stat Lab 03/08/23 15:53 Completed HEMOGLOBIN A1C Routine Lab 03/09/23 04:26 Received POCT GLUCOSE Stat Lab 03/08/23 17:31 Completed POCT GLUCOSE Stat Lab 03/08/23 21:35 Completed POCT GLUCOSE Stat Lab 03/09/23 06:50 Completed POCT GLUCOSE Stat Lab 03/09/23 11:47 Completed PROTIME WITH INR Stat Lab 03/08/23 13:45 Completed TROPONIN Q4H Lab 03/08/23 13:45 Completed TROPONIN Q4H Lab 03/08/23 15:53 Completed TROPONIN Q4H Lab 03/08/23 21:00 Completed TSH [TSH, 3RD Generation] AM.LAB Lab 03/09/23 04:26 Completed UA W/RFX UR CULTURE Stat Lab 03/08/23 15:34 Completed Urine Triage Profile Stat Lab 03/08/23 15:34 Completed Acetaminophen 325 mg [Tylenol 325 mg] Med 03/08/23 18:41 Active 650 mg PO Q4H PRN PRN Ascorbic Acid 500 mg [Vitamin C 500 MG] Med 03/09/23 10:00 Active 1,000 mg PO DAILY Gabapentin [Neurontin ] Med 03/08/23 22:00 Active 600 mg PO TID Insulin Glargine [Lantus Insulin] Med 03/09/23 10:00 Active 35 unit SQ QAM Insulin Lispro [Humalog] Med 03/08/23 16:47 Active See Dose Instructions SQ UD PRN NaCl 0.9% 1000 ml [Sodium Chloride 0.9% 1000 ML] 1,000 Med 03/08/23 13:40 Discontinued ml .ROUTE UD NaCl 0.9% 1000 ml [Sodium Chloride 0.9% 1000 ML] 1,000 Med 03/08/23 14:40 Discontinued ml .ROUTE UD NaCl 0.9% 1000 ml [Sodium Chloride 0.9% 1000 ML] 1,000 Med 03/08/23 16:45 Active ml IV 150 mls/hr NaCl 0.9% 1000 ml [Sodium Chloride 0.9% 1000 ML] 1,000 Med 03/08/23 13:30 Discontinued ml IV 999 mls/hr NaCl 0.9% 1000 ml [Sodium Chloride 0.9% 1000 ML] 1,000 Med 03/08/23 14:37 Discontinued ml IV 999 mls/hr Holter Monitor ONCE RT 03/09/23 12:18 Unverified Patient Care Notes (Last 24 hours) 03/09/23 12:18 Nursing Note by Louisa Singh Rounded on patient with Dr. Ortiz received order to discharge home to today and Holter Monitor x 2 weeks. wants patient to follow up after Holter monitor completed. Initialized on 03/09/23 12:18 - END OF NOTE - Vitals & Intake/Output Vital Signs: Vital Signs Temperature 97.5 F 03/09/23 12:00 Pulse Rate 70 03/09/23 12:00 Respiratory Rate 17 03/09/23 12:00 Blood Pressure 170/85 03/09/23 12:00 O2 Sat by Pulse Oximetry 97 03/09/23 12:00 Intake & Output: Intake & Output 03/07/23 03/08/23 03/09/23 03/10/23 11:59 11:59 11:59 11:59 Intake Total 2273 Balance 2273 Weight 81.2 kg - Lab Result Diagrams: 03/09/23 04:26 03/09/23 04:26 Lab Results-Last 24 Hrs: Lab Results-Last 24 Hours 03/08/23 03/08/23 03/08/23 Range/Units 13:45 13:45 13:45 WBC 7.8 (4.0-10.5) x10^3/uL RBC 4.30 (4.1-5.6) x10^6/uL Hgb 12.8 (12.5-18.0) g/dL Hct 38.5 L (42-50) % MCV 89.5 (78-100) fL MCH 29.8 (26-32) pg MCHC 33.2 (32-36) g/dL RDW 13.6 (11.5-14.0) % Plt Count 268 (150-450) x10^3/uL MPV 11.1 H (7.5-11.0) fL Gran % 73.3 H (36.0-66.0) % Immature Gran % (Auto) 0.3 (0.00-0.4) % Nucleat RBC Rel Count 0.0 (0.00-0.1) % Eos # (Auto) 0.05 (0-0.5) x10^3/uL Immature Gran # (Auto) 0.02 (0.00-0.03) x10^3u/L Absolute Lymphs (auto) 1.34 (1.0-4.6) x10^3/uL Absolute Monos (auto) 0.58 (0.0-1.3) x10^3/uL Absolute Nucleated RBC 0.00 (0.00-0.01) x10^3u/L Lymphocytes % 17.2 L (24.0-44.0) % Monocytes % 7.4 (0.0-12.0) % Eosinophils % 0.6 (0.00-5.0) % Basophils % 1.2 (0.0-0.4) % Absolute Granulocytes 5.71 (1.4-6.9) x10^3/uL Basophils # 0.09 (0-0.4) x10^3/uL PT 10.1 (9.4-12.5) SECONDS INR 0.92 (0.8-3.0) D-Dimer 0.46 (0.0-0.50) mg/L Sodium 140 (137-145) mmol/L Potassium 3.9 (3.5-5.1) mmol/L Chloride 102 (98-107) mmol/L Carbon Dioxide 25 (22-30) mmol/L Anion Gap 16.9 H (5-15) MEQ/L BUN 25 H (9-20) mg/dL Creatinine 1.70 H (0.66-1.25) mg/dL Estimated GFR 43.5 ML/MIN Glucose 209 H (74-106) mg/dL POC Glucometer (74 to 106) mg/dL Calcium 9.7 (8.4-10.2) mg/dL Total Bilirubin 1.10 (0.2-1.3) mg/dL AST 22 (17-59) U/L ALT 21 (0-50) U/L Alkaline Phosphatase 79 (38-126) U/L Troponin I (0.000-0.034) ng/mL Serum Total Protein 7.6 (6.3-8.2) g/dL Albumin 4.4 (3.5-5.0) g/dL TSH 3rd Generation (0.47-4.68) mIU/L Urine Color (Yellow) Urine Appearance (Clear) Urine pH (4.6-8.0) Ur Specific [place] (1.005-1.030) Urine Protein (Negative) Urine Glucose (UA) (Negative) mg/dL Urine Ketones (Negative) Urine Blood (Negative) Urine Nitrite (Negative) Urine Bilirubin (Negative) Urine Urobilinogen (0.2) mg/dL Ur Leukocyte Esterase (Negative) U Hyaline Cast (Auto) (0-2) /LPF Urine Microscopic RBC (0-5) /HPF Urine Microscopic WBC (0-5) /HPF Ur Epithelial Cells (None Seen) /HPF Urine Bacteria (None Seen) /HPF Urine Culture Reflexed (NO) Urine Opiates Level (NEGATIVE) Ur Methadone (NEGATIVE) Urine Barbiturates (NEGATIVE) Ur Phencyclidine (PCP) (NEGATIVE) Urine Amphetamine (NEGATIVE) U Benzodiazepine Level (NEGATIVE) Urine Cocaine (NEGATIVE) Urine Marijuana (THC) (NEGATIVE) Ethyl Alcohol < 10 (0-10) mg/dL 03/08/23 03/08/23 03/08/23 Range/Units 13:45 15:34 15:34 WBC (4.0-10.5) x10^3/uL RBC (4.1-5.6) x10^6/uL Hgb (12.5-18.0) g/dL Hct (42-50) % MCV (78-100) fL MCH (26-32) pg MCHC (32-36) g/dL RDW (11.5-14.0) % Plt Count (150-450) x10^3/uL MPV (7.5-11.0) fL Gran % (36.0-66.0) % Immature Gran % (Auto) (0.00-0.4) % Nucleat RBC Rel Count (0.00-0.1) % Eos # (Auto) (0-0.5) x10^3/uL Immature Gran # (Auto) (0.00-0.03) x10^3u/L Absolute Lymphs (auto) (1.0-4.6) x10^3/uL Absolute Monos (auto) (0.0-1.3) x10^3/uL Absolute Nucleated RBC (0.00-0.01) x10^3u/L Lymphocytes % (24.0-44.0) % Monocytes % (0.0-12.0) % Eosinophils % (0.00-5.0) % Basophils % (0.0-0.4) % Absolute Granulocytes (1.4-6.9) x10^3/uL Basophils # (0-0.4) x10^3/uL PT (9.4-12.5) SECONDS INR (0.8-3.0) D-Dimer (0.0-0.50) mg/L Sodium (137-145) mmol/L Potassium (3.5-5.1) mmol/L Chloride (98-107) mmol/L Carbon Dioxide (22-30) mmol/L Anion Gap (5-15) MEQ/L BUN (9-20) mg/dL Creatinine (0.66-1.25) mg/dL Estimated GFR ML/MIN Glucose (74-106) mg/dL POC Glucometer (74 to 106) mg/dL Calcium (8.4-10.2) mg/dL Total Bilirubin (0.2-1.3) mg/dL AST (17-59) U/L ALT (0-50) U/L Alkaline Phosphatase (38-126) U/L Troponin I < 0.012 (0.000-0.034) ng/mL Serum Total Protein (6.3-8.2) g/dL Albumin (3.5-5.0) g/dL TSH 3rd Generation (0.47-4.68) mIU/L Urine Color Yellow (Yellow) Urine Appearance Clear (Clear) Urine pH 5.0 (4.6-8.0) Ur Specific [place] >=1.030 A (1.005-1.030) Urine Protein 100 A (Negative) Urine Glucose (UA) 500 A (Negative) mg/dL Urine Ketones Trace A (Negative) Urine Blood Negative (Negative) Urine Nitrite Negative (Negative) Urine Bilirubin Negative (Negative) Urine Urobilinogen 0.2 (0.2) mg/dL Ur Leukocyte Esterase Negative (Negative) U Hyaline Cast (Auto) 0-2 (0-2) /LPF Urine Microscopic RBC 0-2 (0-5) /HPF Urine Microscopic WBC 0-2 (0-5) /HPF Ur Epithelial Cells Rare (None Seen) /HPF Urine Bacteria Rare A (None Seen) /HPF Urine Culture Reflexed NO (NO) Urine Opiates Level NEGATIVE (NEGATIVE) Ur Methadone NEGATIVE (NEGATIVE) Urine Barbiturates NEGATIVE (NEGATIVE) Ur Phencyclidine (PCP) NEGATIVE (NEGATIVE) Urine Amphetamine NEGATIVE (NEGATIVE) U Benzodiazepine Level NEGATIVE (NEGATIVE) Urine Cocaine NEGATIVE (NEGATIVE) Urine Marijuana (THC) NEGATIVE (NEGATIVE) Ethyl Alcohol (0-10) mg/dL 03/08/23 03/08/23 03/08/23 Range/Units 15:53 17:31 21:00 WBC (4.0-10.5) x10^3/uL RBC (4.1-5.6) x10^6/uL Hgb (12.5-18.0) g/dL Hct (42-50) % MCV (78-100) fL MCH (26-32) pg MCHC (32-36) g/dL RDW (11.5-14.0) % Plt Count (150-450) x10^3/uL MPV (7.5-11.0) fL Gran % (36.0-66.0) % Immature Gran % (Auto) (0.00-0.4) % Nucleat RBC Rel Count (0.00-0.1) % Eos # (Auto) (0-0.5) x10^3/uL Immature Gran # (Auto) (0.00-0.03) x10^3u/L Absolute Lymphs (auto) (1.0-4.6) x10^3/uL Absolute Monos (auto) (0.0-1.3) x10^3/uL Absolute Nucleated RBC (0.00-0.01) x10^3u/L Lymphocytes % (24.0-44.0) % Monocytes % (0.0-12.0) % Eosinophils % (0.00-5.0) % Basophils % (0.0-0.4) % Absolute Granulocytes (1.4-6.9) x10^3/uL Basophils # (0-0.4) x10^3/uL PT (9.4-12.5) SECONDS INR (0.8-3.0) D-Dimer (0.0-0.50) mg/L Sodium (137-145) mmol/L Potassium (3.5-5.1) mmol/L Chloride (98-107) mmol/L Carbon Dioxide (22-30) mmol/L Anion Gap (5-15) MEQ/L BUN (9-20) mg/dL Creatinine (0.66-1.25) mg/dL Estimated GFR ML/MIN Glucose 103 (74-106) mg/dL POC Glucometer 80 (74 to 106) mg/dL Calcium (8.4-10.2) mg/dL Total Bilirubin (0.2-1.3) mg/dL AST (17-59) U/L ALT (0-50) U/L Alkaline Phosphatase (38-126) U/L Troponin I < 0.012 < 0.012 (0.000-0.034) ng/mL Serum Total Protein (6.3-8.2) g/dL Albumin (3.5-5.0) g/dL TSH 3rd Generation (0.47-4.68) mIU/L Urine Color (Yellow) Urine Appearance (Clear) Urine pH (4.6-8.0) Ur Specific [place] (1.005-1.030) Urine Protein (Negative) Urine Glucose (UA) (Negative) mg/dL Urine Ketones (Negative) Urine Blood (Negative) Urine Nitrite (Negative) Urine Bilirubin (Negative) Urine Urobilinogen (0.2) mg/dL Ur Leukocyte Esterase (Negative) U Hyaline Cast (Auto) (0-2) /LPF Urine Microscopic RBC (0-5) /HPF Urine Microscopic WBC (0-5) /HPF Ur Epithelial Cells (None Seen) /HPF Urine Bacteria (None Seen) /HPF Urine Culture Reflexed (NO) Urine Opiates Level (NEGATIVE) Ur Methadone (NEGATIVE) Urine Barbiturates (NEGATIVE) Ur Phencyclidine (PCP) (NEGATIVE) Urine Amphetamine (NEGATIVE) U Benzodiazepine Level (NEGATIVE) Urine Cocaine (NEGATIVE) Urine Marijuana (THC) (NEGATIVE) Ethyl Alcohol (0-10) mg/dL 03/08/23 03/09/23 03/09/23 Range/Units 21:35 04:26 04:26 WBC 6.5 (4.0-10.5) x10^3/uL RBC 3.68 L (4.1-5.6) x10^6/uL Hgb 10.9 L (12.5-18.0) g/dL Hct 33.2 L (42-50) % MCV 90.2 (78-100) fL MCH 29.6 (26-32) pg MCHC 32.8 (32-36) g/dL RDW 14.0 (11.5-14.0) % Plt Count 227 (150-450) x10^3/uL MPV 11.0 (7.5-11.0) fL Gran % 53.8 (36.0-66.0) % Immature Gran % (Auto) 0.2 (0.00-0.4) % Nucleat RBC Rel Count 0.0 (0.00-0.1) % Eos # (Auto) 0.10 (0-0.5) x10^3/uL Immature Gran # (Auto) 0.01 (0.00-0.03) x10^3u/L Absolute Lymphs (auto) 2.24 (1.0-4.6) x10^3/uL Absolute Monos (auto) 0.59 (0.0-1.3) x10^3/uL Absolute Nucleated RBC 0.00 (0.00-0.01) x10^3u/L Lymphocytes % 34.3 (24.0-44.0) % Monocytes % 9.0 (0.0-12.0) % Eosinophils % 1.5 (0.00-5.0) % Basophils % 1.2 (0.0-0.4) % Absolute Granulocytes 3.52 (1.4-6.9) x10^3/uL Basophils # 0.08 (0-0.4) x10^3/uL PT (9.4-12.5) SECONDS INR (0.8-3.0) D-Dimer (0.0-0.50) mg/L Sodium (137-145) mmol/L Potassium (3.5-5.1) mmol/L Chloride (98-107) mmol/L Carbon Dioxide (22-30) mmol/L Anion Gap (5-15) MEQ/L BUN (9-20) mg/dL Creatinine (0.66-1.25) mg/dL Estimated GFR ML/MIN Glucose (74-106) mg/dL POC Glucometer 269 H (74 to 106) mg/dL Calcium (8.4-10.2) mg/dL Total Bilirubin (0.2-1.3) mg/dL AST (17-59) U/L ALT (0-50) U/L Alkaline Phosphatase (38-126) U/L Troponin I (0.000-0.034) ng/mL Serum Total Protein (6.3-8.2) g/dL Albumin (3.5-5.0) g/dL TSH 3rd Generation 1.090 (0.47-4.68) mIU/L Urine Color (Yellow) Urine Appearance (Clear) Urine pH (4.6-8.0) Ur Specific [place] (1.005-1.030) Urine Protein (Negative) Urine Glucose (UA) (Negative) mg/dL Urine Ketones (Negative) Urine Blood (Negative) Urine Nitrite (Negative) Urine Bilirubin (Negative) Urine Urobilinogen (0.2) mg/dL Ur Leukocyte Esterase (Negative) U Hyaline Cast (Auto) (0-2) /LPF Urine Microscopic RBC (0-5) /HPF Urine Microscopic WBC (0-5) /HPF Ur Epithelial Cells (None Seen) /HPF Urine Bacteria (None Seen) /HPF Urine Culture Reflexed (NO) Urine Opiates Level (NEGATIVE) Ur Methadone (NEGATIVE) Urine Barbiturates (NEGATIVE) Ur Phencyclidine (PCP) (NEGATIVE) Urine Amphetamine (NEGATIVE) U Benzodiazepine Level (NEGATIVE) Urine Cocaine (NEGATIVE) Urine Marijuana (THC) (NEGATIVE) Ethyl Alcohol (0-10) mg/dL 03/09/23 03/09/23 03/09/23 Range/Units 04:26 06:50 11:47 WBC (4.0-10.5) x10^3/uL RBC (4.1-5.6) x10^6/uL Hgb (12.5-18.0) g/dL Hct (42-50) % MCV (78-100) fL MCH (26-32) pg MCHC (32-36) g/dL RDW (11.5-14.0) % Plt Count (150-450) x10^3/uL MPV (7.5-11.0) fL Gran % (36.0-66.0) % Immature Gran % (Auto) (0.00-0.4) % Nucleat RBC Rel Count (0.00-0.1) % Eos # (Auto) (0-0.5) x10^3/uL Immature Gran # (Auto) (0.00-0.03) x10^3u/L Absolute Lymphs (auto) (1.0-4.6) x10^3/uL Absolute Monos (auto) (0.0-1.3) x10^3/uL Absolute Nucleated RBC (0.00-0.01) x10^3u/L Lymphocytes % (24.0-44.0) % Monocytes % (0.0-12.0) % Eosinophils % (0.00-5.0) % Basophils % (0.0-0.4) % Absolute Granulocytes (1.4-6.9) x10^3/uL Basophils # (0-0.4) x10^3/uL PT (9.4-12.5) SECONDS INR (0.8-3.0) D-Dimer (0.0-0.50) mg/L Sodium 142 (137-145) mmol/L Potassium 3.8 (3.5-5.1) mmol/L Chloride 110 H (98-107) mmol/L Carbon Dioxide 24 (22-30) mmol/L Anion Gap 11.9 (5-15) MEQ/L BUN 17 (9-20) mg/dL Creatinine 0.80 (0.66-1.25) mg/dL Estimated GFR > 60.0 ML/MIN Glucose 85 (74-106) mg/dL POC Glucometer 101 237 H (74 to 106) mg/dL Calcium 8.2 L D (8.4-10.2) mg/dL Total Bilirubin 0.60 (0.2-1.3) mg/dL AST 22 (17-59) U/L ALT 16 (0-50) U/L Alkaline Phosphatase 67 (38-126) U/L Troponin I (0.000-0.034) ng/mL Serum Total Protein 6.0 L (6.3-8.2) g/dL Albumin 3.3 L (3.5-5.0) g/dL TSH 3rd Generation (0.47-4.68) mIU/L Urine Color (Yellow) Urine Appearance (Clear) Urine pH (4.6-8.0) Ur Specific [place] (1.005-1.030) Urine Protein (Negative) Urine Glucose (UA) (Negative) mg/dL Urine Ketones (Negative) Urine Blood (Negative) Urine Nitrite (Negative) Urine Bilirubin (Negative) Urine Urobilinogen (0.2) mg/dL Ur Leukocyte Esterase (Negative) U Hyaline Cast (Auto) (0-2) /LPF Urine Microscopic RBC (0-5) /HPF Urine Microscopic WBC (0-5) /HPF Ur Epithelial Cells (None Seen) /HPF Urine Bacteria (None Seen) /HPF Urine Culture Reflexed (NO) Urine Opiates Level (NEGATIVE) Ur Methadone (NEGATIVE) Urine Barbiturates (NEGATIVE) Ur Phencyclidine (PCP) (NEGATIVE) Urine Amphetamine (NEGATIVE) U Benzodiazepine Level (NEGATIVE) Urine Cocaine (NEGATIVE) Urine Marijuana (THC) (NEGATIVE) Ethyl Alcohol (0-10) mg/dL Micro Results-Entire Visit: Accuchecks Date 03/09/23 Date 03/09/23 Date 03/08/23 Time 12:02 Time 07:12 - Radiology Exams Ordered Rad Exams-Entire Visit: Radiology Procedures Category Date Time Status CHEST 1 VIEW (PORTABLE) Stat Exams 03/08/23 13:30 Completed HEAD WITHOUT CONTRAST [CT] Stat Exams 03/08/23 13:30 Completed - Procedures and Test Procedures and Tests throughout Hospitalization: Therapy Orders & Screens 03/09/23 12:18 Holter Monitor ONCE Comment: Reason For Exam: Diagnosis: Syncope Discharge Exam General Appearance: no apparent distress, alert Neurologic Exam: alert, oriented x 3, cooperative, normal mood/affect, nml cerebellar function, sensation nml, No motor deficits Eye Exam: PERRL, EOMI, eyes nml inspection Ears, Nose, Throat Exam: normal ENT inspection, pharynx normal, moist mucous membranes Neck Exam: normal inspection, non-tender, supple, full range of motion Respiratory Exam: normal breath sounds, lungs clear, No respiratory distress Cardiovascular Exam: regular rate/rhythm, normal heart sounds Gastrointestinal/Abdomen Exam: soft, No tenderness, No mass Male Genitalia Exam: deferred Rectal Exam: deferred Back Exam: normal inspection, normal range of motion, No CVA tenderness, No vertebral tenderness Extremity Exam: normal inspection, normal range of motion Skin Exam: normal color, warm, dry Final Diagnosis/Problem List - Final Discharge Diagnosis/Problem (1) Syncope and collapse Current Visit: Yes Status: Acute Assessment & Plan: holter monitor placement. will follow Code(s): R55 - SYNCOPE AND COLLAPSE (2) IDDM (insulin dependent diabetes mellitus) Current Visit: Yes Status: Acute Code(s): [id number] - - Discharge Discharge Date: 03/09/23 Disposition: Home, Self-Care Condition: Stable Prescriptions: No Action Insulin Aspart [NovoLOG Insulin] 1 units SQ UD Insulin Glargine [Lantus Insulin] 35 units SQ QAM Gabapentin [Gralise] 600 mg PO TID Ascorbic Acid 500 mg [Vitamin C 500 MG] 1,000 mg PO DAILY Outpatient Orders: Holter Monitor Facility: [facility], Location: RESPIRATORY THERAPY Follow up with: RUSTY ORTIZ MD [Primary Care Provider] - 3 weeks
== END 2023-03-09 14:15 | disposition home or self-care (01) ==
LOC: ED 13:25 → MED SURG 17:17
PROVIDERS: ADMIT General Practice; ATTEND General Practice
DX: R55 Syncope and collapse (principal); E11.9 Type 2 diabetes mellitus without complications; R51.9 Headache, unspecified; Z79.899 Other long term (current) drug therapy; Z20.828 Contact with and (suspected) exposure to other viral communicable diseases
CPT/HCPCS: 36000; 36415; 70450; 71045; 80053; 80307; 81001; 82077; 82947; 83036; 84443; 84484; 85025; 85379; 85610; 93005; 93041; 93246; 93268; 96360; 96361; 99285; J1817; A9270-GY; G0378

== ENCOUNTER 2023-03-30 12:41 | Emergency (ER) | payer SELFPAY ==
--- NOTE | 2023-03-30 12:44 | ERPHSYRPT ---
- History of Present Illness Time Seen by Provider: 03/30/23 12:44 Source: patient Exam Limitations: clinical condition Physician History: This is a 62-year-old white male patient who is diabetic and his primary care provider is Dr. Ortiz. 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 His blood sugar was read as low. Patient was brought into the emergency department by private vehicle. Patient arrives initially unable to interact but quickly was able to tell us his name and symptoms he was having. He denies chest pain. He is having some abdominal pain. His blood sugar on arrival to the emergency department is 129. Timing/Duration: today Severity: moderate Associated Symptoms: abdominal pain, weakness, other (Initial confusion), No shortness of breath, No chest pain Allergies/Adverse Reactions: codeine Adverse Reaction (Severe, Verified 03/30/23 12:45) Vomiting hydrocodone bitartrate [From Vicodin] Adverse Reaction (Severe, Verified 03/30/23 12:45) Vomiting propoxyphene [From Darvocet-N 100] Adverse Reaction (Verified 03/30/23 12:45) Home Medications: Insulin Aspart [NovoLOG Insulin] 1 units SQ UD 05/29/16 [History] Insulin Glargine [Lantus Insulin] 35 units SQ QAM 03/25/19 [History] Ascorbic Acid 500 mg [Vitamin C 500 MG] 1,000 mg PO DAILY 03/08/23 [History] Gabapentin [Gralise] 600 mg PO TID 03/08/23 [History] Hx Tetanus, Diphtheria Vaccination/Date Given: Yes Hx Influenza Vaccination/Date Given: No Hx Pneumococcal Vaccination/Date Given: No Travel Risk - International Travel Have you traveled outside of the country in past 3 weeks: No - Coronavirus Screening Are you exhibiting any of the following symptoms?: No Close contact with a COVID-19 positive Pt in past 14-21 Days: No - Vaccine Status Have you recieved a Covid-19 vaccination: Yes [place]: Unknown - Vaccination Dates Dates if Unknown: unknown - Review of Systems Constitutional: Weakness Eyes: No Symptoms Ears, Nose, & Throat: No Symptoms Respiratory: No Symptoms Cardiac: No Symptoms Abdominal/Gastrointestinal: Abdominal Pain Genitourinary Symptoms: No Symptoms Musculoskeletal: No Symptoms Skin: No Symptoms Neurological: Other (Confusion) Psychological: No Symptoms Endocrine: No Symptoms Hematologic/Lymphatic: No Symptoms Immunological/Allergic: No Symptoms All Other Systems: Reviewed and Negative - Past Medical History Pertinent Past Medical History: Yes Neurological History: No Pertinent History ENT History: No Pertinent History Cardiac History: No Pertinent History Respiratory History: No Pertinent History Endocrine Medical History: Diabetes Type II Musculoskeletal History: No Pertinent History GI Medical History: No Pertinent History History: No Pertinent History Psycho-Social History: No Pertinent History Male Reproductive Disorders: No Pertinent History Other Medical History: FX L LEG AND FOOT subsequent infection. diarrhea x3 weeks, was hospitalized for gi sx. gangrene, sepsis 2014 - Past Surgical History Past Surgical History: Yes Neuro Surgical History: No Pertinent History Cardiac: No Pertinent History Respiratory: No Pertinent History Gastrointestinal: Cholecystectomy, Hernia Repair Genitourinary: No Pertinent History Musculoskeletal: Orthopedic Surgery Male Surgical History: No Pertinent History Other Surgical History: right femur fixed at age 15. left foot broke at age 20. left leg and foot surgery ,,I&D of left foot, polyps removed - Social History Smoking Status: Former smoker Exposure to second hand smoke: Yes Drug Use: none Patient Lives Alone: No - Nursing Vital Signs Nursing Vital Signs: Initial Vital Signs Temperature 97.4 F 03/30/23 12:50 Pulse Rate 86 03/30/23 12:50 Respiratory Rate 17 03/30/23 12:50 Blood Pressure 128/80 03/30/23 12:50 O2 Sat by Pulse Oximetry 98 03/30/23 12:50 Pain Scale Pain Intensity 0 - Physical Exam General Appearance: no apparent distress, lethargy (But arousable) Eye Exam: PERRL/EOMI, eyes nml inspection Ears, Nose, Throat Exam: TMs normal, dry mucous membranes Neck Exam: normal inspection, non-tender, supple, full range of motion Respiratory Exam: normal breath sounds, lungs clear, airway intact, No chest tenderness, No respiratory distress Cardiovascular Exam: regular rate/rhythm, normal heart sounds, normal peripheral pulses Gastrointestinal/Abdomen Exam: soft, normal bowel sounds, tenderness (Mild diffuse), guarding (Mild diffuse), No rebound Rectal Exam: not done Back Exam: normal inspection, normal range of motion, No CVA tenderness, No vertebral tenderness Extremity Exam: normal inspection, normal range of motion, pelvis stable Neurologic Exam: alert, cooperative, 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 Clearing mental status. Moving all his extremities.) Skin Exam: normal color, warm, dry Lymphatic Exam: No adenopathy SpO2 Interpretation: normal O2 Delivery: Room Air - Course Nursing assessment & vital signs reviewed: Yes EKG Interpreted by Me: RATE (88), Sinus Rhythm, NORMAL AXIS, NORMAL INTERVALS, NORMAL QRS, NORMAL ST-T, Other (No acute ischemic changes on today's twelve-lead EKG.) Ordered Tests: Active Orders 24 hr Category Date Time Status Director Business Travel STAT Care 03/30/23 12:49 Active Cath for Specimen-Straight STAT Care 03/30/23 12:49 Active EKG-ER Only STAT Care 03/30/23 12:49 Active IV Insertion STAT Care 03/30/23 12:48 Active POCT Glucose Check STAT Care 03/30/23 12:48 Active Pulse Oximetry (ED) STAT Care 03/30/23 12:48 Active ABDOMEN AND PELVIS W/0 CONTRAS [CT] Stat Exams 03/30/23 12:52 Completed HEAD WITHOUT CONTRAST [CT] Stat Exams 03/30/23 12:49 Completed CBC W DIFF Stat Lab 03/30/23 12:50 Completed CMP Stat Lab 03/30/23 12:50 Completed ETHYL ALCOHOL Stat Lab 03/30/23 12:50 Completed Lactic Acid Stat Lab 03/30/23 14:59 Completed Lactic Acid Urgent Lab 03/30/23 12:48 Completed MAGNESIUM Stat Lab 03/30/23 12:50 Completed POCT GLUCOSE Stat Lab 03/30/23 13:04 Completed UA W/RFX UR CULTURE Stat Lab 03/30/23 12:56 Completed Medication Summary Discontinued Medications Generic Name Dose Route Start Last Admin Trade Name Freq PRN Reason Stop Dose Admin Sodium Chloride 1,000 mls @ 999 mls/hr 03/30/23 12:48 03/30/23 14:08 Sodium Chloride 0.9% 1000 Ml IV 03/30/23 13:48 Infused .Q1H1M STA Infusion Sodium Chloride Confirm 03/30/23 13:01 Sodium Chloride 0.9% 1000 Ml Administered 03/30/23 13:02 Dose 1,000 mls @ ud .ROUTE .STK-MED ONE Ondansetron HCl 4 mg 03/30/23 12:48 03/30/23 13:03 Ondansetron Hcl 4 Mg/2 Ml Vial IV 03/30/23 12:49 4 mg STAT ONE Administration Ondansetron HCl Confirm 03/30/23 13:01 Ondansetron Hcl 4 Mg/2 Ml Vial Administered 03/30/23 13:02 Dose 4 mg .ROUTE .STK-MED ONE Lab/Rad Data: Laboratory Result Diagrams 03/30/23 12:50 03/30/23 12:50 Laboratory Results 03/30/23 03/30/23 03/30/23 Range/Units 14:59 13:04 12:56 WBC (4.0-10.5) x10^3/uL RBC (4.1-5.6) x10^6/uL Hgb (12.5-18.0) g/dL Hct (42-50) % MCV (78-100) fL MCH (26-32) pg MCHC (32-36) g/dL RDW (11.5-14.0) % Plt Count (150-450) x10^3/uL MPV (7.5-11.0) fL Gran % (36.0-66.0) % Immature Gran % (Auto) (0.00-0.4) % Nucleat RBC Rel Count (0.00-0.1) % Eos # (Auto) (0-0.5) x10^3/uL Immature Gran # (Auto) (0.00-0.03) x10^3u/L Absolute Lymphs (auto) (1.0-4.6) x10^3/uL Absolute Monos (auto) (0.0-1.3) x10^3/uL Absolute Nucleated RBC (0.00-0.01) x10^3u/L Lymphocytes % (24.0-44.0) % Monocytes % (0.0-12.0) % Eosinophils % (0.00-5.0) % Basophils % (0.0-0.4) % Absolute Granulocytes (1.4-6.9) x10^3/uL Basophils # (0-0.4) x10^3/uL Sodium (137-145) mmol/L Potassium (3.5-5.1) mmol/L Chloride (98-107) mmol/L Carbon Dioxide (22-30) mmol/L Anion Gap (5-15) MEQ/L BUN (9-20) mg/dL Creatinine (0.66-1.25) mg/dL Estimated GFR ML/MIN Glucose (74-106) mg/dL POC Glucometer 153 H (74 to 106) mg/dL Lactic Acid 2.6 H (0.4-2.0) Calcium (8.4-10.2) mg/dL Magnesium (1.6-2.3) mg/dL Total Bilirubin (0.2-1.3) mg/dL AST (17-59) U/L ALT (0-50) U/L Alkaline Phosphatase (38-126) U/L Serum Total Protein (6.3-8.2) g/dL Albumin (3.5-5.0) g/dL Urine Color Yellow (Yellow) Urine Appearance Clear (Clear) Urine pH 5.0 (4.6-8.0) Ur Specific [place] >=1.030 A (1.005-1.030) Urine Protein 100 A (Negative) Urine Glucose (UA) 100 A (Negative) mg/dL Urine Ketones Trace A (Negative) Urine Blood Negative (Negative) Urine Nitrite Negative (Negative) Urine Bilirubin Negative (Negative) Urine Urobilinogen 0.2 (0.2) mg/dL Ur Leukocyte Esterase Negative (Negative) U Hyaline Cast (Auto) 0-2 (0-2) /LPF Urine Microscopic RBC 0-2 (0-5) /HPF Urine Microscopic WBC 0-2 (0-5) /HPF Ur Epithelial Cells Rare (None Seen) /HPF Urine Bacteria Few A (None Seen) /HPF Urine Culture Reflexed NO (NO) Ethyl Alcohol (0-10) mg/dL 03/30/23 03/30/23 03/30/23 Range/Units 12:50 12:50 12:48 WBC 10.0 (4.0-10.5) x10^3/uL RBC 4.16 (4.1-5.6) x10^6/uL Hgb 12.3 L (12.5-18.0) g/dL Hct 36.9 L (42-50) % MCV 88.7 (78-100) fL MCH 29.6 (26-32) pg MCHC 33.3 (32-36) g/dL RDW 13.6 (11.5-14.0) % Plt Count 280 (150-450) x10^3/uL MPV 10.9 (7.5-11.0) fL Gran % 61.6 (36.0-66.0) % Immature Gran % (Auto) 0.3 (0.00-0.4) % Nucleat RBC Rel Count 0.0 (0.00-0.1) % Eos # (Auto) 0.07 (0-0.5) x10^3/uL Immature Gran # (Auto) 0.03 (0.00-0.03) x10^3u/L Absolute Lymphs (auto) 2.86 (1.0-4.6) x10^3/uL Absolute Monos (auto) 0.79 (0.0-1.3) x10^3/uL Absolute Nucleated RBC 0.00 (0.00-0.01) x10^3u/L Lymphocytes % 28.5 (24.0-44.0) % Monocytes % 7.9 (0.0-12.0) % Eosinophils % 0.7 (0.00-5.0) % Basophils % 1.0 (0.0-0.4) % Absolute Granulocytes 6.19 (1.4-6.9) x10^3/uL Basophils # 0.10 (0-0.4) x10^3/uL Sodium 142 (137-145) mmol/L Potassium 4.4 (3.5-5.1) mmol/L Chloride 103 (98-107) mmol/L Carbon Dioxide 26 (22-30) mmol/L Anion Gap 17.2 H (5-15) MEQ/L BUN 26 H (9-20) mg/dL Creatinine 1.41 H (0.66-1.25) mg/dL Estimated GFR 54.0 ML/MIN Glucose 169 H (74-106) mg/dL POC Glucometer (74 to 106) mg/dL Lactic Acid 2.9 H (0.4-2.0) Calcium 10.3 H (8.4-10.2) mg/dL Magnesium 2.2 (1.6-2.3) mg/dL Total Bilirubin 1.20 (0.2-1.3) mg/dL AST 33 (17-59) U/L ALT 21 (0-50) U/L Alkaline Phosphatase 85 (38-126) U/L Serum Total Protein 7.8 (6.3-8.2) g/dL Albumin 4.5 (3.5-5.0) g/dL Urine Color (Yellow) Urine Appearance (Clear) Urine pH (4.6-8.0) Ur Specific [place] (1.005-1.030) Urine Protein (Negative) Urine Glucose (UA) (Negative) mg/dL Urine Ketones (Negative) Urine Blood (Negative) Urine Nitrite (Negative) Urine Bilirubin (Negative) Urine Urobilinogen (0.2) mg/dL Ur Leukocyte Esterase (Negative) U Hyaline Cast (Auto) (0-2) /LPF Urine Microscopic RBC (0-5) /HPF Urine Microscopic WBC (0-5) /HPF Ur Epithelial Cells (None Seen) /HPF Urine Bacteria (None Seen) /HPF Urine Culture Reflexed (NO) Ethyl Alcohol < 10 (0-10) mg/dL - Progress Progress: improved, re-examined Progress Note: 03/30/23 13:43 Patient reexamined. Patient is completely awake alert and oriented and answering questions normally. He has no complaints of headache, chest pain or abdominal pain. Patient is unaware what happened at work today. He does not recall getting hit in the head or "passing out". 03/30/23 15:26 Patient's medical issue is 1 of moderate complexity. The level complexity and the work-up performed based on review of the patient's past medical history, review of the patient's medication list, review of the patient's drug allergy list, history of present illness and physical findings on examination. The work-up in this patient included a CT scan of the head, CT scan of the abdomen pelvis without contrast, twelve-lead EKG, troponin level, urinalysis. I reviewed the results of the studies. The CT scan of the head was interpreted by the radiologist and he has a nonacute senile brain. The CAT scan of the abdomen pelvis without contrast shows fecal impaction in the rectum. Once the patient returned from the CAT scan of the abdomen and pelvis patient had evacuation of a large amount of stool. I reviewed the findings of the work-up with the patient. I then contacted his primary care provider, Dr. Ortiz, whom he had an appointment with at 230pm to review the recent Holter monitor resu lts. It appears the patient has vasovagal episodes. His primary care provider stated it is okay to discharge the patient home and have the patient call his office to reschedule his appointment. The patient has no headache, no abdominal pain, no chest pain and no shortness of breath. Discussed with : Carl Counseled pt/family regarding: lab results, diagnosis, need for follow-up, rad results Medical Desision Making - Independent Historian Additional History obtained from: Spouse, Family - Diagnostic Testing Radiological Interpretation: Reviewed by me, Teleradiologist Report - Risk of complications Low Risk: Low risk of morbidity from additional dx testing or treatment - Departure Departure Disposition: Home Clinical Impression: Syncopal episodes Condition: Stable Critical Care Time: No Referrals: RUSTY ORTIZ MD [Primary Care Provider] - Follow up/PCP as directed Additional Instructions: drink plenty of fluids. take your medications as prescribed. monitor your blood glucose closely. call dr. ortiz office today to reschedule your appointment with him.
[2023-03-30] MEDS ORDERED: Zofran 4 MG/2 ML VIAL IV ONE (12:48)
[2023-03-30] MEDS ORDERED: Sodium Chloride 0.9% 1000 ML 1,000 ML IV STA (12:48)
[2023-03-30 13:00] LABS: Absolute Neutrophil Ct (ANC) 6.19 x10^3/uL (1.4-6.9); Eosinophil % 0.7 % (0.00-5.0); Eosinophil (Absolute #) 0.07 x10^3/uL (0-0.5); Hematocrit 36.9 % (42-50); Hemoglobin 12.3 g/dL (12.5-18.0); IMMATURE GRAN # 0.03 x10^3u/L (0.00-0.03); IMMATURE GRAN % 0.3 % (0.00-0.4); Lymphocyte (Absolute #) 2.86 x10^3/uL (1.0-4.6); Lymphocytes % 28.5 % (24.0-44.0); Mean Cell Volume 88.7 fL (78-100); Mean Corpuscular Hemoglobin 29.6 pg (26-32); Mean Corpuscular Hgb Concent. 33.3 g/dL (32-36); Mean Platelet Volume 10.9 fL (7.5-11.0); Monocyte (Absolute #) 0.79 x10^3/uL (0.0-1.3); Monocytes % 7.9 % (0.0-12.0); Neutrophil % 61.6 % (36.0-66.0); Platelet Count 280 x10^3/uL (150-450); Red Blood Count 4.16 x10^6/uL (4.1-5.6); Red Cell Distribution Width 13.6 % (11.5-14.0)
[2023-03-30] MEDS ORDERED: Sodium Chloride 0.9% 1000 ML 1,000 ML ONE (13:01)
[2023-03-30] MEDS ORDERED: Zofran 4 MG/2 ML VIAL ONE (13:01)
[2023-03-30 13:16] LABS: ALBUMIN 4.5 g/dL (3.5-5.0); ALKALINE PHOSPHATASE 85 U/L (38-126); ANION GAP 17.2 MEQ/L (5-15); BLOOD UREA NITROGEN 26 mg/dL (9-20); CHLORIDE 103 mmol/L (98-107); Calcium 10.3 mg/dL (8.4-10.2); Carbon Dioxide 26 mmol/L (22-30); Creatinine 1 1.41 mg/dL (0.66-1.25); ETHYL ALCOHOL < 10 mg/dL (0-10); Glucose 169 mg/dL (74-106); MAGNESIUM 2.2 mg/dL (1.6-2.3); Potassium 4.4 mmol/L (3.5-5.1); SGOT/AST 33 U/L (17-59); SGPT/ALT 21 U/L (0-50); SODIUM 142 mmol/L (137-145); Total Protein 7.8 g/dL (6.3-8.2)
--- NOTE | 2023-03-30 13:43 | XRAY ---
Indication: Syncope. Multiple contiguous axial images obtained through the head without contrast. Comparison: March 08, 2023 Again age-appropriate global atrophy and minimal periventricular degenerative micro-ischemia bilaterally. No acute intracranial hemorrhage, abnormal extra-axial fluid collection, or mass effect. Fourth ventricle is midline without hydrocephalus. Bony calvarium intact. Visualized paranasal sinuses and mastoid air cells are clear. Impression: Continued nonacute senile brain.
--- NOTE | 2023-03-30 13:47 | XRAY ---
Indication: Abdomen pain. Syncope. Multiple contiguous axial images obtained through the abdomen and pelvis without contrast. Comparison: September 01, 2017 Lung bases remain clear. Heart not enlarged. Noncontrasted stomach and bowel loops nonobstructed again with normal appendix. There is again mild diffuse colonic fecal debris with new moderate rectal impaction. Interval cholecystectomy. No free fluid/air. Remaining liver, pancreas, spleen, adrenal glands, kidneys, ureters, and bladder are unremarkable for noncontrast exam. Worsening mild scattered aortoiliac calcifications without AAA. Osseous structures intact again with mild degenerative changes throughout the spine. Impression: 1. Again mild diffuse fecal stasis with new rectal impaction. 2. Chronic findings including arteriosclerotic disease and degenerative spondylosis. 3. Remaining CT abdomen/pelvis without contrast exam is negative.
[2023-03-30 14:18] LABS: Appearance Clear (Clear); Bilirubin Negative (Negative); Blood Negative (Negative); Glucose, Urine 100 mg/dL (Negative); Hyaline Casts 0-2 /LPF (0-2); Ketones Trace (Negative); Leukocyte Esterase Negative (Negative); Nitrite Negative (Negative); Protein,Urine Dip 100 (Negative); RBC 0-2 /HPF (0-5); Specific Gravity >=1.030 (1.005-1.030); Urobilinogen 0.2 mg/dL (0.2)
[2023-03-30 14:19] LABS: ADD URINE CULTURE? NO (NO); Bacteria Few /HPF (None Seen); Epithelial Cells Rare /HPF (None Seen); WBC 0-2 /HPF (0-5)
[2023-03-30 15:36] VITALS: BP 132/69; PULSE 80; O2SAT 98
== END 2023-03-30 15:45 | disposition home or self-care (01) ==
LOC: ED 12:41
DX: R55 Syncope and collapse (principal); R10.9 Unspecified abdominal pain; E11.9 Type 2 diabetes mellitus without complications; Z79.4 Long term (current) use of insulin; Z79.899 Other long term (current) drug therapy
CPT/HCPCS: 36000; 36415; 70450; 74176; 80053; 81001; 82077; 82947; 83605; 83735; 85025; 93005; 93041; 94760; 96374; 99284; P9612; J2405

== ENCOUNTER 2023-04-01 06:05 | Inpatient (IN) | payer SELFPAY ==
[2023-04-01] MEDS ORDERED: SUBLIMAZE 100 MCG/2 ML IV ONE (06:37)
[2023-04-01] MEDS ORDERED: Zofran 4 MG/2 ML VIAL IV ONE (06:38)
[2023-04-01] MEDS ORDERED: Sodium Chloride 0.9% 1000 ML 1,000 ML IV STA ×2 (06:38→07:59)
--- NOTE | 2023-04-01 06:46 | ERPHSYRPT ---
- History of Present Illness Historian: patient, other () Exam Limitations: no limitations Patient Subjective Stated Complaint: spouse states that am 6/14 he couldn't eat and started feeling nauseated and had diarrhea then as day progressed he started getting worse and throwing. last night's meal blood sugar check was "high" so he was given 20units insulin. during night threw up almost every hour so they came to the ED Triage Nursing Assessment: per family request went to [facility] to get pt out of car, upon arrival with wheelchair pt got out of car independently, took a couple of steps and got self into wheelchair. gait was slow and steady. after registration was complete taken to room 6 via wheelchair where pt again stood and walked a couple of steps to get self onto cot. pt alert and oriented times three, able to move all extremities, speaks in complete sentences, with resp even and unlabored. most information provided by spouse talking over the pt or the pt refusing to answer so the spouse did. spouse reports they were here 2 days for BS<20 with seizure activity but was later released to home. when he woke up yesterday morning he had woken up and wasn't able to eat breakfast then had an episode of diarrhea then felt bad all day, started vomiting in the afternoon, had more diarrhea in the evening. report that he didn't eat or drink all day. progressively got more sick and vomiting approx every hour until this am. abd soft, pt yells and bats hands away upon palpation, refused further abdominal exam. reports that vomit has been green/ brown in color. Timing/Duration: day(s) (1 day) Activities at Onset: rest Quality: other (Unable to describe) Abdominal Pain Onset Location: periumbilical Pain Radiation: no radiation Severity of Pain-Max: moderate Severity of Pain-Current: moderate Modifying Factors: Improves With: nothing, vomiting Associated Symptoms: denies symptoms, diarrhea, nausea, vomiting Previous symptoms: no prior history Hx Tetanus, Diphtheria Vaccination/Date Given: Yes Hx Influenza Vaccination/Date Given: No Hx Pneumococcal Vaccination/Date Given: No Immunizations Up to Date: No <LIZ LAMB - Last Filed: 04/01/23 07:01> <EVELIA PATEL - Last Filed: 04/01/23 22:50> - History of Present Illness Physician History: 62 yo WM w N/V/D/rosy-umbilical pain x 1 day. Pain is 7/10, and nothing makes it better or worse. Pt denies fever/hematemesis/melena/hematochezia/dysuria/hematuria/dyspnea. He also has s ome mild mid-sternal chest pain wo radiation. Pt has had a tal in the past and was seen in the ER several days ago for hypoglycemia. (LIZ LAMB) Allergies/Adverse Reactions: codeine Adverse Reaction (Severe, Verified 04/01/23 06:12) Vomiting hydrocodone bitartrate [From Vicodin] Adverse Reaction (Severe, Verified 04/01/23 06:12) Vomiting propoxyphene [From Darvocet-N 100] Adverse Reaction (Verified 04/01/23 06:12) Home Medications: Insulin Aspart [NovoLOG Insulin] 1 units SQ UD 05/29/16 [History] Insulin Glargine [Lantus Insulin] 35 units SQ QAM 03/25/19 [History] Ascorbic Acid 500 mg [Vitamin C 500 MG] 1,000 mg PO DAILY 03/08/23 [History] Gabapentin 600 mg PO TID 04/01/23 [History] Travel Risk - International Travel Have you traveled outside of the country in past 3 weeks: No - Coronavirus Screening Are you exhibiting any of the following symptoms?: No Close contact with a COVID-19 positive Pt in past 14-21 Days: No - Vaccine Status Have you recieved a Covid-19 vaccination: Yes 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 - Vaccination Dates Dates if Unknown: unknown <LIZ LAMB - Last Filed: 04/01/23 07:01> - Review of Systems Constitutional: No Symptoms, Malaise Eyes: No Symptoms Ears, Nose, & Throat: No Symptoms Respiratory: No Symptoms Cardiac: No Symptoms Abdominal/Gastrointestinal: Abdominal Pain, Nausea, Vomiting, Diarrhea Genitourinary Symptoms: No Symptoms Musculoskeletal: No Symptoms Skin: No Symptoms Neurological: No Symptoms Psychological: No Symptoms Endocrine: No Symptoms Hematologic/Lymphatic: No Symptoms Immunological/Allergic: No Symptoms <LIZ LAMB - Last Filed: 04/01/23 07:01> - Past Medical History Pertinent Past Medical History: Yes Neurological History: Seizures ENT History: No Pertinent History Cardiac History: No Pertinent History Respiratory History: No Pertinent History Endocrine Medical History: Diabetes Type II Musculoskeletal History: No Pertinent History GI Medical History: No Pertinent History History: No Pertinent History Psycho-Social History: No Pertinent History Male Reproductive Disorders: No Pertinent History Other Medical History: FX L LEG AND FOOT subsequent infection. diarrhea x3 we eks, was hospitalized for gi sx. gangrene, sepsis 2014 - Past Surgical History Past Surgical History: Yes Neuro Surgical History: No Pertinent History Cardiac: No Pertinent History Respiratory: No Pertinent History Gastrointestinal: Cholecystectomy, Hernia Repair Genitourinary: No Pertinent History Musculoskeletal: Orthopedic Surgery Male Surgical History: No Pertinent History Other Surgical History: right femur fixed at age 15. left foot broke at age 20. left leg and foot surgery ,,I&D of left foot, polyps removed - Social History Smoking Status: Former smoker Exposure to second hand smoke: Yes Drug Use: none Patient Lives Alone: No <LIZ LAMB Filed: 04/01/23 07:01> - Physical Exam General Appearance: mild distress Eye Exam: PERRL/EOMI, eyes nml inspection Ears, Nose, Throat Exam: normal ENT inspection, TMs normal, pharynx normal Neck Exam: normal inspection, non-tender, supple, full range of motion, No meningismus, No mass, No Brudzinski, No Kernig's Respiratory Exam: normal breath sounds, lungs clear, airway intact, No respiratory distress Cardiovascular Exam: tachycardia, capillary refill <2 sec, No murmur Gastrointestinal/Abdomen Exam: soft, normal bowel sounds, tenderness (Moderate rosy-umbilical TTP wo guarding or rebound) Back Exam: normal inspection, normal range of motion Extremity Exam: normal inspection, normal range of motion Neurologic Exam: alert, oriented x 3, cooperative, rim buster II-XII nml as tested, normal mood/affect, sensation nml, No motor deficits, No sensory deficit Skin Exam: normal color, warm, dry Lymphatic Exam: No adenopathy SpO2 Interpretation: normal SpO2: 99 <LIZ LAMB Filed: 04/01/23 07:01> - Nursing Vital Signs Nursing Vital Signs: Initial Vital Signs Temperature 97.0 F 04/01/23 06:15 Pulse Rate 104 H 04/01/23 06:15 Respiratory Rate 16 04/01/23 06:15 Blood Pressure 142/80 04/01/23 06:15 O2 Sat by Pulse Oximetry 99 04/01/23 06:15 Pain Scale Pain Intensity 0 Hypertensive/tachycardic (LIZ LAMB) - Course EKG Interpreted by Me: RATE ([id number]), Sinus Tach, NORMAL AXIS, NORMAL INTERVALS, NORMAL QRS <AMANDAEVELYN PERRYMIR - Last Filed: 04/01/23 22:50> Ordered Tests: Active Orders 24 hr Category Date Time Status Bedrest ROUTINE Activity 04/01/23 10:12 Active Up With Assistance ROUTINE Activity 04/01/23 10:12 Active Admit as Inpatient ROUTINE Care 04/01/23 10:12 Active Call Admit Doctor for Orders ON ADMISSION Care 04/01/23 10:12 Active Code Status Order ROUTINE Care 04/01/23 10:12 Active EKG-ER Only STAT Care 04/01/23 06:44 Completed Fall Protocol Q1H Care 04/01/23 10:12 Active IV Care Q1H Care 04/01/23 10:12 Active ABDOMEN AND PELVIS W/0 CONTRAS [CT] Stat Exams 04/01/23 06:40 Completed AMYLASE Stat Lab 04/01/23 06:39 Completed CBC W DIFF Stat Lab 04/01/23 06:39 Completed CMP AM.LAB Lab 04/02/23 04:00 Ordered CMP Stat Lab 04/01/23 06:39 Completed LIPASE Stat Lab 04/01/23 06:39 Completed Lactic Acid Stat Lab 04/01/23 07:45 Completed MAG [MAGNESIUM] Stat Lab 04/01/23 06:30 Completed POCT GLUCOSE Stat Lab 04/01/23 06:16 Completed POCT GLUCOSE Stat Lab 04/01/23 09:14 Completed TROPONIN Q4H Lab 04/01/23 06:45 Completed TROPONIN Q4H Lab 04/01/23 11:00 Completed TROPONIN Q4H Lab 04/01/23 15:05 Completed UA W/RFX UR CULTURE Stat Lab 04/01/23 08:27 Completed VBG [VENOUS BLOOD GAS] Stat Lab 04/01/23 07:45 Completed Transfer Order Routine Transfer 04/01/23 Completed Medication Summary Generic Name Dose Route Start Last Admin Trade Name Freq PRN Reason Stop Dose Admin Acetaminophen 650 mg 04/01/23 10:12 04/01/23 21:40 Acetaminophen 325 Mg Tablet PO 05/01/23 10:11 650 mg Q4H PRN PRN Administration PAIN AND/OR FEVER Dextrose 25 ml 04/01/23 18:09 04/01/23 18:11 Dextrose 50%-Water 50 Ml Abboject IV 04/01/23 18:10 25 ml STAT ONE Administration Enoxaparin Sodium 80 mg 04/01/23 19:45 04/01/23 20:39 Enoxaparin Sodium 80 Mg/0.8 Ml Syringe 1 mg/kg (80 mg) 05/01/23 19:44 80 mg SQ Administration Q12H AURA Gabapentin 600 mg 04/01/23 15:00 04/01/23 21:40 Gabapentin 300 Mg Capsule PO 05/01/23 14:59 600 mg TID AURA Administration Insulin Glargine 15 unit 04/01/23 20:18 04/01/23 20:40 Insulin Glargine 1 Unit SQ 04/01/23 20:19 15 unit ONCE ONE Administration Insulin Human Lispro 0 unit 04/01/23 20:20 Insulin Lispro 1 Unit SQ 05/01/23 20:19 Q4H PRN PRN HYPERGLYCEMIA Ondansetron HCl 4 mg 04/01/23 10:12 04/01/23 17:11 Ondansetron Hcl 4 Mg/2 Ml Vial IV 05/01/23 10:11 4 mg Q6H PRN PRN Administration NAUSEA/VOMITING Pantoprazole Sodium 40 mg 04/02/23 10:00 Pantoprazole 40 Mg Vial IV 05/02/23 09:59 Q24H10 AURA Discontinued Medications Generic Name Dose Route Start Last Admin Trade Name Freq PRN Reason Stop Dose Admin Albuterol/Ipratropium 3 ml 04/01/23 10:12 Ipratropium/Albuterol Sulfate 3 Ml Ampul.Neb IH 05/01/23 10:11 Q4HPRN PRN SHORTNESS OF BREATH/WHEEZING Fentanyl Citrate 50 mcg 04/01/23 06:37 04/01/23 07:24 Fentanyl Citrate 100 Mcg/2 Ml* Vial IV 04/01/23 06:38 50 mcg STAT ONE Administration Fentanyl Citrate Confirm 04/01/23 07:21 Fentanyl Citrate 100 Mcg/2 Ml* Vial Administered 04/01/23 07:22 Dose 100 mcg .ROUTE .STK-MED ONE Heparin Sodium (Beef Lung) 5,000 unit 04/01/23 22:00 Heparin 5000 Units/0.5 Ml 5,000 Unit/0.5 Ml Syr SQ 05/01/23 21:59 BID AURA Sodium Chloride 1,000 mls @ 999 mls/hr 04/01/23 06:38 04/01/23 09:56 Sodium Chloride 0.9% 1000 Ml IV 04/01/23 07:38 Infused .Q1H1M STA Infusion Sodium Chloride Confirm 04/01/23 07:22 Sodium Chloride 0.9% 1000 Ml Administered 04/01/23 07:23 Dose 1,000 mls @ ud .ROUTE .STK-MED ONE INSULIN REGULAR IN 0.9 % NACL 100 unit in 100 mls @ 7.85 mls/hr 04/01/23 07:58 04/01/23 18:54 Myxredlin 100 Unit/100 Ml Bag IV 05/01/23 07:57 0.03 unit/kg/hr .[id number] PRN 2 mls/hr HYPERGLYCEMIA Titration Protocol 0.1 UNIT/KG/HR Sodium Chloride 1,000 mls @ 999 mls/hr 04/01/23 07:59 04/01/23 09:55 Sodium Chloride 0.9% 1000 Ml IV 04/01/23 08:59 Infused .Q1H1M STA Infusion Sodium Chloride Confirm 04/01/23 08:10 Sodium Chloride 0.9% 1000 Ml Administered 04/01/23 08:11 Dose 1,000 mls @ ud .ROUTE .STK-MED ONE Sodium Chloride 1,000 mls @ 150 mls/hr 04/01/23 10:30 04/01/23 10:45 Sodium Chloride 0.9% 1000 Ml IV 05/01/23 10:29 150 mls/hr .Q6H40M AURA Administration Potassium Chloride/Dextrose/Sod Cl 1,000 mls @ 150 mls/hr 04/01/23 13:30 04/01/23 18:12 D5w/0.45ns W/ 20meq Kcl 1000 Ml IV 05/01/23 13:29 150 mls/hr .Q6H40M AURA Infusion Insulin Human Regular 8 unit 04/01/23 07:58 04/01/23 08:11 Insulin Regular, Human 1 Unit IV 04/01/23 07:59 8 unit STAT ONE Administration Insulin Human Regular Confirm 04/01/23 08:08 Insulin Regular, Human 1 Unit Administered 04/01/23 08:09 Dose 8 unit .ROUTE .STK-MED ONE Ondansetron HCl 4 mg 04/01/23 06:38 04/01/23 07:25 Ondansetron Hcl 4 Mg/2 Ml Vial IV 04/01/23 06:39 4 mg STAT ONE Administration Ondansetron HCl Confirm 04/01/23 07:22 Ondansetron Hcl 4 Mg/2 Ml Vial Administered 04/01/23 07:23 Dose 4 mg .ROUTE .STK-MED ONE Pantoprazole Sodium 40 mg 04/01/23 09:04 04/01/23 09:08 Pantoprazole 40 Mg Vial IV 04/01/23 09:05 40 mg STAT ONE Administration Pantoprazole Sodium Confirm 04/01/23 09:06 Pantoprazole 40 Mg Vial Administered 04/01/23 09:07 Dose 40 mg IV .STK-MED ONE Pantoprazole Sodium 40 mg 04/01/23 10:12 04/01/23 11:15 Pantoprazole 40 Mg Vial IV 05/01/23 10:11 Not Given Q24H10 [facility] Lab/Rad Data: Laboratory Result Diagrams 04/01/23 06:39 04/01/23 06:39 Laboratory Results 04/01/23 04/01/23 04/01/23 Range/Units 09:14 08:27 07:45 WBC (4.0-10.5) x10^3/uL RBC (4.1-5.6) x10^6/uL Hgb (12.5-18.0) g/dL Hct (42-50) % MCV (78-100) fL MCH (26-32) pg MCHC (32-36) g/dL RDW (11.5-14.0) % Plt Count (150-450) x10^3/uL MPV (7.5-11.0) fL Gran % (36.0-66.0) % Immature Gran % (Auto) (0.00-0.4) % Nucleat RBC Rel Count (0.00-0.1) % Eos # (Auto) (0-0.5) x10^3/uL Immature Gran # (Auto) (0.00-0.03) x10^3u/L Absolute Lymphs (auto) (1.0-4.6) x10^3/uL Absolute Monos (auto) (0.0-1.3) x10^3/uL Absolute Nucleated RBC (0.00-0.01) x10^3u/L Lymphocytes % (24.0-44.0) % Monocytes % (0.0-12.0) % Eosinophils % (0.00-5.0) % Basophils % (0.0-0.4) % Absolute Granulocytes (1.4-6.9) x10^3/uL Basophils # (0-0.4) x10^3/uL pO2/FiO2 Ratio 21.0 % VBG pH 7.20 L* (7.32-7.42) VBG pCO2 at Pat Temp 30 L (42-55) mm/Hg VBG pO2 at Pat Temp 51 H (25-40) mm/Hg VBG HCO3 11.7 L* (22-28) meq/L VBG O2 Sat (Adrian) 80.4 L (95-100) VBG Base Excess -15.0 L (-2.0-2.0) VBG Hemoglobin 12.2 VBG Carboxyhemoglobin 3.2 (0.0-6.9) % T HGB POC Potassium 6.4 H* (3.5-5.1) Sodium (137-145) mmol/L Potassium (3.5-5.1) mmol/L Chloride (98-107) mmol/L Carbon Dioxide (22-30) mmol/L Anion Gap (5-15) MEQ/L BUN (9-20) mg/dL Creatinine (0.66-1.25) mg/dL Estimated GFR ML/MIN Glucose (74-106) mg/dL POC Glucometer 525 H* (50 to 500) mg/dL Lactic Acid 2.7 H (0.4-2.0) Calcium (8.4-10.2) mg/dL Magnesium (1.6-2.3) mg/dL Total Bilirubin (0.2-1.3) mg/dL AST (17-59) U/L ALT (0-50) U/L Alkaline Phosphatase (38-126) U/L Troponin I (0.000-0.034) ng/mL Serum Total Protein (6.3-8.2) g/dL Albumin (3.5-5.0) g/dL Amylase (30-110) U/L Lipase (23-300) U/L Urine Color Yellow (Yellow) Urine Appearance Clear (Clear) Urine pH 5.5 (4.6-8.0) Ur Specific [place] 1.025 (1.005-1.030) Urine Protein Negative (Negative) Urine Glucose (UA) >=1000 A (Negative) mg/dL Urine Ketones >=160 A (Negative) Urine Blood Negative (Negative) Urine Nitrite Negative (Negative) Urine Bilirubin Negative (Negative) Urine Urobilinogen 0.2 (0.2) mg/dL Ur Leukocyte Esterase Negative (Negative) U Hyaline Cast (Auto) NONE SEEN (0-2) /LPF Urine Microscopic RBC 0-2 (0-5) /HPF Urine Microscopic WBC 0-2 (0-5) /HPF Ur Epithelial Cells None Seen (None Seen) /HPF Urine Bacteria None Seen (None Seen) /HPF Urine Culture Reflexed NO (NO) 04/01/23 04/01/23 04/01/23 Range/Units 06:45 06:39 06:39 WBC 14.2 H (4.0-10.5) x10^3/uL RBC 4.12 (4.1-5.6) x10^6/uL Hgb 12.1 L (12.5-18.0) g/dL Hct 39.1 L (42-50) % MCV 94.9 D (78-100) fL MCH 29.4 (26-32) pg MCHC 30.9 L (32-36) g/dL RDW 13.7 (11.5-14.0) % Plt Count 301 (150-450) x10^3/uL MPV 11.7 H (7.5-11.0) fL Gran % 85.9 H (36.0-66.0) % Immature Gran % (Auto) 0.4 (0.00-0.4) % Nucleat RBC Rel Count 0.0 (0.00-0.1) % Eos # (Auto) 0 (0-0.5) x10^3/uL Immature Gran # (Auto) 0.05 H (0.00-0.03) x10^3u/L Absolute Lymphs (auto) 1.31 (1.0-4.6) x10^3/uL Absolute Monos (auto) 0.57 (0.0-1.3) x10^3/uL Absolute Nucleated RBC 0.00 (0.00-0.01) x10^3u/L Lymphocytes % 9.2 L (24.0-44.0) % Monocytes % 4.0 (0.0-12.0) % Eosinophils % 0.0 (0.00-5.0) % Basophils % 0.5 (0.0-0.4) % Absolute Granulocytes 12.23 H (1.4-6.9) x10^3/uL Basophils # 0.07 (0-0.4) x10^3/uL pO2/FiO2 Ratio % VBG pH (7.32-7.42) VBG pCO2 at Pat Temp (42-55) mm/Hg VBG pO2 at Pat Temp (25-40) mm/Hg VBG HCO3 (22-28) meq/L VBG O2 Sat (Adrian) (95-100) VBG Base Excess (-2.0-2.0) VBG Hemoglobin VBG Carboxyhemoglobin (0.0-6.9) % T HGB POC Potassium (3.5-5.1) Sodium 135 L (137-145) mmol/L Potassium 5.7 H D (3.5-5.1) mmol/L Chloride 97 L (98-107) mmol/L Carbon Dioxide 9 L* (22-30) mmol/L Anion Gap 34.2 H (5-15) MEQ/L BUN 33 H (9-20) mg/dL Creatinine 1.31 H (0.66-1.25) mg/dL Estimated GFR 58.7 ML/MIN Glucose 648 H* (74-106) mg/dL POC Glucometer (50 to 500) mg/dL Lactic Acid (0.4-2.0) Calcium 9.3 (8.4-10.2) mg/dL Magnesium (1.6-2.3) mg/dL Total Bilirubin 2.30 H (0.2-1.3) mg/dL AST 27 (17-59) U/L ALT 21 (0-50) U/L Alkaline Phosphatase 109 (38-126) U/L Troponin I < 0.012 (0.000-0.034) ng/mL Serum Total Protein 7.4 (6.3-8.2) g/dL Albumin 4.4 (3.5-5.0) g/dL Amylase 63 (30-110) U/L Lipase 14 L (23-300) U/L Urine Color (Yellow) Urine Appearance (Clear) Urine pH (4.6-8.0) Ur Specific [place] (1.005-1.030) Urine Protein (Negative) Urine Glucose (UA) (Negative) mg/dL Urine Ketones (Negative) Urine Blood (Negative) Urine Nitrite (Negative) Urine Bilirubin (Negative) Urine Urobilinogen (0.2) mg/dL Ur Leukocyte Esterase (Negative) U Hyaline Cast (Auto) (0-2) /LPF Urine Microscopic RBC (0-5) /HPF Urine Microscopic WBC (0-5) /HPF Ur Epithelial Cells (None Seen) /HPF Urine Bacteria (None Seen) /HPF Urine Culture Reflexed (NO) 04/01/23 04/01/23 Range/Units 06:30 06:16 WBC (4.0-10.5) x10^3/uL RBC (4.1-5.6) x10^6/uL Hgb (12.5-18.0) g/dL Hct (42-50) % MCV (78-100) fL MCH (26-32) pg MCHC (32-36) g/dL RDW (11.5-14.0) % Plt Count (150-450) x10^3/uL MPV (7.5-11.0) fL Gran % (36.0-66.0) % Immature Gran % (Auto) (0.00-0.4) % Nucleat RBC Rel Count (0.00-0.1) % Eos # (Auto) (0-0.5) x10^3/uL Immature Gran # (Auto) (0.00-0.03) x10^3u/L Absolute Lymphs (auto) (1.0-4.6) x10^3/uL Absolute Monos (auto) (0.0-1.3) x10^3/uL Absolute Nucleated RBC (0.00-0.01) x10^3u/L Lymphocytes % (24.0-44.0) % Monocytes % (0.0-12.0) % Eosinophils % (0.00-5.0) % Basophils % (0.0-0.4) % Absolute Granulocytes (1.4-6.9) x10^3/uL Basophils # (0-0.4) x10^3/uL pO2/FiO2 Ratio % VBG pH (7.32-7.42) VBG pCO2 at Pat Temp (42-55) mm/Hg VBG pO2 at Pat Temp (25-40) mm/Hg VBG HCO3 (22-28) meq/L VBG O2 Sat (Adrian) (95-100) VBG Base Excess (-2.0-2.0) VBG Hemoglobin VBG Carboxyhemoglobin (0.0-6.9) % T HGB POC Potassium (3.5-5.1) Sodium (137-145) mmol/L Potassium (3.5-5.1) mmol/L Chloride (98-107) mmol/L Carbon Dioxide (22-30) mmol/L Anion Gap (5-15) MEQ/L BUN (9-20) mg/dL Creatinine (0.66-1.25) mg/dL Estimated GFR ML/MIN Glucose (74-106) mg/dL POC Glucometer 595 H* (50 to 500) mg/dL Lactic Acid (0.4-2.0) Calcium (8.4-10.2) mg/dL Magnesium 2.3 (1.6-2.3) mg/dL Total Bilirubin (0.2-1.3) mg/dL AST (17-59) U/L ALT (0-50) U/L Alkaline Phosphatase (38-126) U/L Troponin I (0.000-0.034) ng/mL Serum Total Protein (6.3-8.2) g/dL Albumin (3.5-5.0) g/dL Amylase (30-110) U/L Lipase (23-300) U/L Urine Color (Yellow) Urine Appearance (Clear) Urine pH (4.6-8.0) Ur Specific [place] (1.005-1.030) Urine Protein (Negative) Urine Glucose (UA) (Negative) mg/dL Urine Ketones (Negative) Urine Blood (Negative) Urine Nitrite (Negative) Urine Bilirubin (Negative) Urine Urobilinogen (0.2) mg/dL Ur Leukocyte Esterase (Negative) U Hyaline Cast (Auto) (0-2) /LPF Urine Microscopic RBC (0-5) /HPF Urine Microscopic WBC (0-5) /HPF Ur Epithelial Cells (None Seen) /HPF Urine Bacteria (None Seen) /HPF Urine Culture Reflexed (NO) <LIZ LAMB - Last Filed: 04/01/23 07:01> - Progress Progress: improved, pain not gone completely Will see patient in: hospital (full admit) Counseled pt/family regarding: lab results, diagnosis, need for follow-up, rad results <EVELIA PATEL - Last Filed: 04/01/23 22:50> - Progress Progress Note: 04/01/23 07:01 Nursing note and vital signs reviewed No food or housing insecurities noted Care turned over to Dr. Patel at 7AM (LIZ LAMB) 04/01/23 08:06 patient is checked out to me at shift change from Dr. Lamb with pending work- up. Patient presented with abdominal pain in the epigastric area with multiple episodes of nonprojectile, nonbilious vomiting with some retrosternal burning. Patient work-up showed EKG sinus tach with no acute ST elevation and negative initial troponin. Has a white count of 14, chemistries showed pH of 7.2 with a bicarb of 11 and mild SYED with a creatinine of 1.3. Patient does have a gap of 34 with blood sugar 648, lactate of 2.7. Patient is in DKA, given fentanyl and Zofran, during my evaluation is feeling much better but still having some discomfort in the upper abdomen. CT abdomen pelvis currently pending. I have ordered another liter of fluid and will continue insulin per protocol for DKA. 04/01/23 09:22 CT did show a hiatal hernia but no other acute findings. Patient is on insulin drip per protocol. Discussed with Dr. Owen griffin hospitalist, reviewed history, work-up and agreed with admission. I have discussed in detail lab work, imaging findings, plan of admission with patient and family who understand and agree with it. (EVELIA PATEL) Medical Desision Making - Independent Historian Additional History obtained from: Spouse - Discussion of managment Care discussed with:: hospitalist Reviewed:: Test results Agreed on:: Treatment plan, decision to admit Will see patient: in hospital - Diagnostic Testing Diagnostic test were ordered, analyzed, and reviewed by me: Yes Radiological Interpretation: Reviewed by me - Risk of complications The pt has a high risk of morbidity or mortality based on: Decision regarding hospitilization or escalation of hosp level of care <EVELIA PATEL - Last Filed: 04/01/23 22:50> <LIZ LAMB - Last Filed: 04/01/23 07:01> - Departure Departure Disposition: Home Critical Care Time: No <EVELIA PATEL - Last Filed: 04/01/23 22:50> - Departure Clinical Impression: DKA (diabetic ketoacidoses) Condition: Stable
[2023-04-01 07:00] LABS: Absolute Neutrophil Ct (ANC) 12.23 x10^3/uL (1.4-6.9); BASOPHIL % 0.5 % (0.0-0.4); Basophil (Absolute #) 0.07 x10^3/uL (0-0.4); Eosinophil (Absolute #) 0 x10^3/uL (0-0.5); Hematocrit 39.1 % (42-50); Hemoglobin 12.1 g/dL (12.5-18.0); IMMATURE GRAN # 0.05 x10^3u/L (0.00-0.03); IMMATURE GRAN % 0.4 % (0.00-0.4); Lymphocyte (Absolute #) 1.31 x10^3/uL (1.0-4.6); Lymphocytes % 9.2 % (24.0-44.0); Mean Cell Volume 94.9 fL (78-100); Mean Corpuscular Hemoglobin 29.4 pg (26-32); Mean Corpuscular Hgb Concent. 30.9 g/dL (32-36); Mean Platelet Volume 11.7 fL (7.5-11.0); Monocyte (Absolute #) 0.57 x10^3/uL (0.0-1.3); Neutrophil % 85.9 % (36.0-66.0); Platelet Count 301 x10^3/uL (150-450); Red Blood Count 4.12 x10^6/uL (4.1-5.6); Red Cell Distribution Width 13.7 % (11.5-14.0); White Blood Count 14.2 x10^3/uL (4.0-10.5)
[2023-04-01] MEDS ORDERED: SUBLIMAZE 100 MCG/2 ML ONE (07:21)
[2023-04-01] MEDS ORDERED: Zofran 4 MG/2 ML VIAL ONE (07:22)
[2023-04-01] MEDS ORDERED: Sodium Chloride 0.9% 1000 ML 1,000 ML ONE ×2 (07:22→08:10)
[2023-04-01 07:39] LABS: ALBUMIN 4.4 g/dL (3.5-5.0); ANION GAP 34.2 MEQ/L (5-15); BILIRUBIN,TOTAL 2.3 mg/dL (0.2-1.3); Calcium 9.3 mg/dL (8.4-10.2); Creatinine 1 1.31 mg/dL (0.66-1.25); EST GLOMERULAR FILTRATION RATE 58.7 ML/MIN; Total Protein 7.4 g/dL (6.3-8.2)
[2023-04-01 07:51] LABS: Lactic Acid 2.7 (0.4-2.0); VBG CARBOXYHEMOGLOBIN 3.2 % T HGB (0.0-6.9); VBG HCO3- 11.7 meq/L (22-28); VBG HEMOGLOBIN 12.2; VBG O2 SATURATION 80.4 (95-100)
[2023-04-01 07:52] LABS: VBG POTASSIUM 6.4 (3.5-5.1); VBG pH 7.2 (7.32-7.42)
[2023-04-01] MEDS ORDERED: HUMULIN R IV ONE (07:58)
[2023-04-01] MEDS ORDERED: MYXREDLIN 100 UNIT/100 ML BAG 100 UNIT/100 ML PLAST..BAG IV PRN (07:58)
[2023-04-01 08:04] LABS: Potassium 5.7 mmol/L (3.5-5.1)
[2023-04-01] MEDS ORDERED: HUMULIN R ONE (08:08)
--- NOTE | 2023-04-01 08:48 | XRAY ---
Indication: Right abdomen pain, nausea, vomiting, diarrhea, and bloody stools. Multiple contiguous axial images obtained through the abdomen and pelvis without contrast. Comparison: March 30, 2023 Lung bases remain clear. Heart not enlarged. New small hiatal hernia. Visualized distal esophagus is now mildly fluid distended favoring gastroesophageal reflux. Noncontrasted stomach and bowel loops nonobstructed again with normal appendix. Radiopacities in distal ileum and right hemicolon favoring ingested medication/bismuth. Diminished fecal stasis and resolves rectal fecal impaction. Again cholecystectomy. No free fluid/air. Stable incidental tiny hepatic/splenic calcified granulomas. Remaining liver, pancreas, spleen, adrenal glands, kidneys, ureters, and bladder are unremarkable for noncontrast exam. Stable mild aortoiliac calcifications without AAA. Osseous structures intact again with mild degenerative changes throughout spine. Impression: 1. New hiatal hernia with GERD. 2. Again chronic findings including arteriosclerotic disease and old granulomatous disease. 3. Remaining CT abdomen/pelvis without contrast exam is again negative.
[2023-04-01] MEDS ORDERED: PROTONIX 40 MG IV IV ONE ×2 (09:04→09:06)
[2023-04-01 09:10] LABS: Appearance Clear (Clear); Bacteria None Seen /HPF (None Seen); Bilirubin Negative (Negative); Blood Negative (Negative); Epithelial Cells None Seen /HPF (None Seen); Glucose, Urine >=1000 mg/dL (Negative); Hyaline Casts NONE SEEN /LPF (0-2); Ketones >=160 (Negative); Leukocyte Esterase Negative (Negative); Nitrite Negative (Negative); Ph 5.5 (4.6-8.0); Protein,Urine Dip Negative (Negative); RBC 0-2 /HPF (0-5); Specific Gravity 1.025 (1.005-1.030); Urobilinogen 0.2 mg/dL (0.2); WBC 0-2 /HPF (0-5)
[2023-04-01 09:14] LABS: ADD URINE CULTURE? NO (NO)
[2023-04-01] MEDS ORDERED: PROTONIX 40 MG IV IV SCH (10:12)
[2023-04-01] MEDS ORDERED: Zofran 4 MG/2 ML VIAL IV PRN (10:12)
[2023-04-01] MEDS ORDERED: DUONEB 0.5-3 MG/3 ml Neb IH PRN (10:12)
[2023-04-01] MEDS ORDERED: Sodium Chloride 0.9% 1000 ML 1,000 ML IV SCH (10:30)
[2023-04-01 11:29] LABS: ANION GAP 31.5 MEQ/L (5-15); BLOOD UREA NITROGEN 34 mg/dL (9-20); CHLORIDE 106 mmol/L (98-107); Calcium 8.8 mg/dL (8.4-10.2); Creatinine 1 1.28 mg/dL (0.66-1.25); EST GLOMERULAR FILTRATION RATE > 60.0 ML/MIN; Glucose 398 mg/dL (74-106); Potassium 4.7 mmol/L (3.5-5.1); SODIUM 141 mmol/L (137-145)
[2023-04-01 11:37] LABS: Carbon Dioxide 9 mmol/L (22-30)
[2023-04-01] MEDS ORDERED: D5W/0.45NS W/ 20mEq KCl 1000 ML 1,000 ML IV SCH (13:30)
--- NOTE | 2023-04-01 13:33 | PCM.HP ---
History of Present Illness - Chief Complaint Chief Complaint: DKA Date: 04/01/23 History of Present Illness: Mr. Bishop is a 62 year-old gentleman with DM2 who presents with DKA. He presented to [facility] with complaints of abdominal pian x 1 day - laboratory data revealed an SYED, hyperkalemia, and DKA while imaging revealed a known hiatal hernia. On my examination, he is resting comfortably denying any currrent fevers, chills, nausea, vomiting, diarrhea, syncope, presyncope, visual changes, orthopnea, PND, odynophagia, dysphagia, chest pain, shortness of breath, dysuria, hematuria, melena, hematochezia, or neurological changes. All other systems were reviewed and were negative. - Review of Systems Constitutional: Other ( PER HPI) Medications & Allergies Home Medications: Home Medication List Insulin Aspart [NovoLOG Insulin] 1 units SQ UD 05/29/16 [History Confirmed 04/01/23] Insulin Glargine [Lantus Insulin] 35 units SQ QAM 03/25/19 [History Confirmed 04/01/23] Ascorbic Acid 500 mg [Vitamin C 500 MG] 1,000 mg PO DAILY 03/08/23 [History Confirmed 04/01/23] Gabapentin [Gralise] 600 mg PO TID 03/08/23 [History Confirmed 04/01/23] Allergies/Adverse Reactions: Allergies Allergy/AdvReac Type Severity Reaction Status Date / Time codeine AdvReac Severe Vomiting Verified 04/01/23 06:12 hydrocodone bitartrate AdvReac Severe Vomiting Verified 04/01/23 06:12 [From Vicodin] propoxyphene AdvReac Verified 04/01/23 06:12 [From Darvocet-N 100] - Past Medical History Past Medical History: Yes Neurological History: Seizures ENT History: No Pertinent History Cardiac History: No Pertinent History Respiratory History: No Pertinent History Endocrine Medical History: Diabetes Type II Musculoskelatal History: No Pertinent History GI Medical History: No Pertinent History History: No Pertinent History Pyscho-Social History: No Pertinent History Male Reproductive Disorders: No Pertinent History Comment: FX L LEG AND FOOT subsequent infection. diarrhea x3 weeks, was hospitalized for gi sx. gangrene, sepsis 2014 - Past Surgical History Past Surgical History: Yes Neuro Surgical History: No Pertinent History Cardiac History: No Pertinent History Respiratory Surgery: No Pertinent History GI Surgical History: Cholecystectomy, Hernia Repair Genitourinary Surgical Hx: No Pertinent History Musculskeletal Surgical Hx: Orthopedic Surgery Male Surgical History: No Pertinent History Other Surgical History: right femur fixed at age 15. left foot broke at age 20. left leg and foot surgery ,,I&D of left foot, polyps removed - Social History Smoking Status: Never smoker Exposure to second hand smoke: No Alcohol: Rarely Drug Use: none - Physical Exam Vital Signs: Vital Signs - 24 hr Temp Pulse Resp BP BP Pulse Ox 04/01/23 12:10 98.7 F 93 H 27 H 134/70 99 04/01/23 12:00 103 H 04/01/23 10:18 98.7 F 103 H 20 140/87 98 04/01/23 09:31 117/63 96 04/01/23 09:30 88/62 96 04/01/23 09:00 110 H 18 110/49 97 04/01/23 08:30 135/68 97 04/01/23 08:00 108 H 18 110/52 97 04/01/23 07:30 122/79 97 04/01/23 07:04 139/65 98 04/01/23 07:02 99 04/01/23 06:15 97.0 F 104 H 16 142/80 99 General Appearance: no apparent distress Neurologic Exam: alert, oriented x 3 Eye Exam: PERRL/EOMI Ears, Nose, Throat Exam: normal ENT inspection Neck Exam: normal inspection Respiratory Exam: normal breath sounds Cardiovascular Exam: regular rate/rhythm Gastrointestinal/Abdomen Exam: soft, normal bowel sounds Rectal Exam: deferred Back Exam: normal inspection Extremity Exam: normal inspection Skin Exam: normal color Results - Labs Lab/Micro Results: Lab Results-Last 24 Hours 04/01/23 04/01/23 04/01/23 Range/Units 06:16 06:30 06:39 WBC 14.2 H (4.0-10.5) x10^3/uL RBC 4.12 (4.1-5.6) x10^6/uL Hgb 12.1 L (12.5-18.0) g/dL Hct 39.1 L (42-50) % MCV 94.9 D (78-100) fL MCH 29.4 (26-32) pg MCHC 30.9 L (32-36) g/dL RDW 13.7 (11.5-14.0) % Plt Count 301 (150-450) x10^3/uL MPV 11.7 H (7.5-11.0) fL Gran % 85.9 H (36.0-66.0) % Immature Gran % (Auto) 0.4 (0.00-0.4) % Nucleat RBC Rel Count 0.0 (0.00-0.1) % Eos # (Auto) 0 (0-0.5) x10^3/uL Immature Gran # (Auto) 0.05 H (0.00-0.03) x10^3u/L Absolute Lymphs (auto) 1.31 (1.0-4.6) x10^3/uL Absolute Monos (auto) 0.57 (0.0-1.3) x10^3/uL Absolute Nucleated RBC 0.00 (0.00-0.01) x10^3u/L Lymphocytes % 9.2 L (24.0-44.0) % Monocytes % 4.0 (0.0-12.0) % Eosinophils % 0.0 (0.00-5.0) % Basophils % 0.5 (0.0-0.4) % Absolute Granulocytes 12.23 H (1.4-6.9) x10^3/uL Basophils # 0.07 (0-0.4) x10^3/uL pO2/FiO2 Ratio % VBG pH (7.32-7.42) VBG pCO2 at Pat Temp (42-55) mm/Hg VBG pO2 at Pat Temp (25-40) mm/Hg VBG HCO3 (22-28) meq/L VBG O2 Sat (Adrian) (95-100) VBG Base Excess (-2.0-2.0) VBG Hemoglobin VBG Carboxyhemoglobin (0.0-6.9) % T HGB POC Potassium (3.5-5.1) Sodium (137-145) mmol/L Potassium (3.5-5.1) mmol/L Chloride (98-107) mmol/L Carbon Dioxide (22-30) mmol/L Anion Gap (5-15) MEQ/L BUN (9-20) mg/dL Creatinine (0.66-1.25) mg/dL Estimated GFR ML/MIN Glucose (74-106) mg/dL POC Glucometer 595 H* (50 to 500) mg/dL Lactic Acid (0.4-2.0) Calcium (8.4-10.2) mg/dL Magnesium 2.3 (1.6-2.3) mg/dL Total Bilirubin (0.2-1.3) mg/dL AST (17-59) U/L ALT (0-50) U/L Alkaline Phosphatase (38-126) U/L Troponin I (0.000-0.034) ng/mL Serum Total Protein (6.3-8.2) g/dL Albumin (3.5-5.0) g/dL Amylase (30-110) U/L Lipase (23-300) U/L Urine Color (Yellow) Urine Appearance (Clear) Urine pH (4.6-8.0) Ur Specific Howell (1.005-1.030) Urine Protein (Negative) Urine Glucose (UA) (Negative) mg/dL Urine Ketones (Negative) Urine Blood (Negative) Urine Nitrite (Negative) Urine Bilirubin (Negative) Urine Urobilinogen (0.2) mg/dL Ur Leukocyte Esterase (Negative) U Hyaline Cast (Auto) (0-2) /LPF Urine Microscopic RBC (0-5) /HPF Urine Microscopic WBC (0-5) /HPF Ur Epithelial Cells (None Seen) /HPF Urine Bacteria (None Seen) /HPF Urine Culture Reflexed (NO) 04/01/23 04/01/23 04/01/23 Range/Units 06:39 06:45 07:45 WBC (4.0-10.5) x10^3/uL RBC (4.1-5.6) x10^6/uL Hgb (12.5-18.0) g/dL Hct (42-50) % MCV (78-100) fL MCH (26-32) pg MCHC (32-36) g/dL RDW (11.5-14.0) % Plt Count (150-450) x10^3/uL MPV (7.5-11.0) fL Gran % (36.0-66.0) % Immature Gran % (Auto) (0.00-0.4) % Nucleat RBC Rel Count (0.00-0.1) % Eos # (Auto) (0-0.5) x10^3/uL Immature Gran # (Auto) (0.00-0.03) x10^3u/L Absolute Lymphs (auto) (1.0-4.6) x10^3/uL Absolute Monos (auto) (0.0-1.3) x10^3/uL Absolute Nucleated RBC (0.00-0.01) x10^3u/L Lymphocytes % (24.0-44.0) % Monocytes % (0.0-12.0) % Eosinophils % (0.00-5.0) % Basophils % (0.0-0.4) % Absolute Granulocytes (1.4-6.9) x10^3/uL Basophils # (0-0.4) x10^3/uL pO2/FiO2 Ratio 21.0 % VBG pH 7.20 L* (7.32-7.42) VBG pCO2 at Pat Temp 30 L (42-55) mm/Hg VBG pO2 at Pat Temp 51 H (25-40) mm/Hg VBG HCO3 11.7 L* (22-28) meq/L VBG O2 Sat (Adrian) 80.4 L (95-100) VBG Base Excess -15.0 L (-2.0-2.0) VBG Hemoglobin 12.2 VBG Carboxyhemoglobin 3.2 (0.0-6.9) % T HGB POC Potassium 6.4 H* (3.5-5.1) Sodium 135 L (137-145) mmol/L Potassium 5.7 H D (3.5-5.1) mmol/L Chloride 97 L (98-107) mmol/L Carbon Dioxide 9 L* (22-30) mmol/L Anion Gap 34.2 H (5-15) MEQ/L BUN 33 H (9-20) mg/dL Creatinine 1.31 H (0.66-1.25) mg/dL Estimated GFR 58.7 ML/MIN Glucose 648 H* (74-106) mg/dL POC Glucometer (50 to 500) mg/dL Lactic Acid 2.7 H (0.4-2.0) Calcium 9.3 (8.4-10.2) mg/dL Magnesium (1.6-2.3) mg/dL Total Bilirubin 2.30 H (0.2-1.3) mg/dL AST 27 (17-59) U/L ALT 21 (0-50) U/L Alkaline Phosphatase 109 (38-126) U/L Troponin I < 0.012 (0.000-0.034) ng/mL Serum Total Protein 7.4 (6.3-8.2) g/dL Albumin 4.4 (3.5-5.0) g/dL Amylase 63 (30-110) U/L Lipase 14 L (23-300) U/L Urine Color (Yellow) Urine Appearance (Clear) Urine pH (4.6-8.0) Ur Specific Howell (1.005-1.030) Urine Protein (Negative) Urine Glucose (UA) (Negative) mg/dL Urine Ketones (Negative) Urine Blood (Negative) Urine Nitrite (Negative) Urine Bilirubin (Negative) Urine Urobilinogen (0.2) mg/dL Ur Leukocyte Esterase (Negative) U Hyaline Cast (Auto) (0-2) /LPF Urine Microscopic RBC (0-5) /HPF Urine Microscopic WBC (0-5) /HPF Ur Epithelial Cells (None Seen) /HPF Urine Bacteria (None Seen) /HPF Urine Culture Reflexed (NO) 04/01/23 04/01/23 04/01/23 Range/Units 08:27 09:14 11:00 WBC (4.0-10.5) x10^3/uL RBC (4.1-5.6) x10^6/uL Hgb (12.5-18.0) g/dL Hct (42-50) % MCV (78-100) fL MCH (26-32) pg MCHC (32-36) g/dL RDW (11.5-14.0) % Plt Count (150-450) x10^3/uL MPV (7.5-11.0) fL Gran % (36.0-66.0) % Immature Gran % (Auto) (0.00-0.4) % Nucleat RBC Rel Count (0.00-0.1) % Eos # (Auto) (0-0.5) x10^3/uL Immature Gran # (Auto) (0.00-0.03) x10^3u/L Absolute Lymphs (auto) (1.0-4.6) x10^3/uL Absolute Monos (auto) (0.0-1.3) x10^3/uL Absolute Nucleated RBC (0.00-0.01) x10^3u/L Lymphocytes % (24.0-44.0) % Monocytes % (0.0-12.0) % Eosinophils % (0.00-5.0) % Basophils % (0.0-0.4) % Absolute Granulocytes (1.4-6.9) x10^3/uL Basophils # (0-0.4) x10^3/uL pO2/FiO2 Ratio % VBG pH (7.32-7.42) VBG pCO2 at Pat Temp (42-55) mm/Hg VBG pO2 at Pat Temp (25-40) mm/Hg VBG HCO3 (22-28) meq/L VBG O2 Sat (Adrian) (95-100) VBG Base Excess (-2.0-2.0) VBG Hemoglobin VBG Carboxyhemoglobin (0.0-6.9) % T HGB POC Potassium (3.5-5.1) Sodium (137-145) mmol/L Potassium (3.5-5.1) mmol/L Chloride (98-107) mmol/L Carbon Dioxide (22-30) mmol/L Anion Gap (5-15) MEQ/L BUN (9-20) mg/dL Creatinine (0.66-1.25) mg/dL Estimated GFR ML/MIN Glucose (74-106) mg/dL POC Glucometer 525 H* (50 to 500) mg/dL Lactic Acid (0.4-2.0) Calcium (8.4-10.2) mg/dL Magnesium (1.6-2.3) mg/dL Total Bilirubin (0.2-1.3) mg/dL AST (17-59) U/L ALT (0-50) U/L Alkaline Phosphatase (38-126) U/L Troponin I < 0.012 (0.000-0.034) ng/mL Serum Total Protein (6.3-8.2) g/dL Albumin (3.5-5.0) g/dL Amylase (30-110) U/L Lipase (23-300) U/L Urine Color Yellow (Yellow) Urine Appearance Clear (Clear) Urine pH 5.5 (4.6-8.0) Ur Specific Howell 1.025 (1.005-1.030) Urine Protein Negative (Negative) Urine Glucose (UA) >=1000 A (Negative) mg/dL Urine Ketones >=160 A (Negative) Urine Blood Negative (Negative) Urine Nitrite Negative (Negative) Urine Bilirubin Negative (Negative) Urine Urobilinogen 0.2 (0.2) mg/dL Ur Leukocyte Esterase Negative (Negative) U Hyaline Cast (Auto) NONE SEEN (0-2) /LPF Urine Microscopic RBC 0-2 (0-5) /HPF Urine Microscopic WBC 0-2 (0-5) /HPF Ur Epithelial Cells None Seen (None Seen) /HPF Urine Bacteria None Seen (None Seen) /HPF Urine Culture Reflexed NO (NO) 04/01/23 04/01/23 04/01/23 Range/Units 11:00 11:02 12:01 WBC (4.0-10.5) x10^3/uL RBC (4.1-5.6) x10^6/uL Hgb (12.5-18.0) g/dL Hct (42-50) % MCV (78-100) fL MCH (26-32) pg MCHC (32-36) g/dL RDW (11.5-14.0) % Plt Count (150-450) x10^3/uL MPV (7.5-11.0) fL Gran % (36.0-66.0) % Immature Gran % (Auto) (0.00-0.4) % Nucleat RBC Rel Count (0.00-0.1) % Eos # (Auto) (0-0.5) x10^3/uL Immature Gran # (Auto) (0.00-0.03) x10^3u/L Absolute Lymphs (auto) (1.0-4.6) x10^3/uL Absolute Monos (auto) (0.0-1.3) x10^3/uL Absolute Nucleated RBC (0.00-0.01) x10^3u/L Lymphocytes % (24.0-44.0) % Monocytes % (0.0-12.0) % Eosinophils % (0.00-5.0) % Basophils % (0.0-0.4) % Absolute Granulocytes (1.4-6.9) x10^3/uL Basophils # (0-0.4) x10^3/uL pO2/FiO2 Ratio % VBG pH (7.32-7.42) VBG pCO2 at Pat Temp (42-55) mm/Hg VBG pO2 at Pat Temp (25-40) mm/Hg VBG HCO3 (22-28) meq/L VBG O2 Sat (Adrian) (95-100) VBG Base Excess (-2.0-2.0) VBG Hemoglobin VBG Carboxyhemoglobin (0.0-6.9) % T HGB POC Potassium (3.5-5.1) Sodium 141 (137-145) mmol/L Potassium 4.7 (3.5-5.1) mmol/L Chloride 106 (98-107) mmol/L Carbon Dioxide 9 L* (22-30) mmol/L Anion Gap 31.5 H (5-15) MEQ/L BUN 34 H (9-20) mg/dL Creatinine 1.28 H (0.66-1.25) mg/dL Estimated GFR > 60.0 ML/MIN Glucose 398 H (74-106) mg/dL POC Glucometer 374 H 292 H (50 to 500) mg/dL Lactic Acid (0.4-2.0) Calcium 8.8 (8.4-10.2) mg/dL Magnesium (1.6-2.3) mg/dL Total Bilirubin (0.2-1.3) mg/dL AST (17-59) U/L ALT (0-50) U/L Alkaline Phosphatase (38-126) U/L Troponin I (0.000-0.034) ng/mL Serum Total Protein (6.3-8.2) g/dL Albumin (3.5-5.0) g/dL Amylase (30-110) U/L Lipase (23-300) U/L Urine Color (Yellow) Urine Appearance (Clear) Urine pH (4.6-8.0) Ur Specific Howell (1.005-1.030) Urine Protein (Negative) Urine Glucose (UA) (Negative) mg/dL Urine Ketones (Negative) Urine Blood (Negative) Urine Nitrite (Negative) Urine Bilirubin (Negative) Urine Urobilinogen (0.2) mg/dL Ur Leukocyte Esterase (Negative) U Hyaline Cast (Auto) (0-2) /LPF Urine Microscopic RBC (0-5) /HPF Urine Microscopic WBC (0-5) /HPF Ur Epithelial Cells (None Seen) /HPF Urine Bacteria (None Seen) /HPF Urine Culture Reflexed (NO) 04/01/23 Range/Units 12:59 WBC (4.0-10.5) x10^3/uL RBC (4.1-5.6) x10^6/uL Hgb (12.5-18.0) g/dL Hct (42-50) % MCV (78-100) fL MCH (26-32) pg MCHC (32-36) g/dL RDW (11.5-14.0) % Plt Count (150-450) x10^3/uL MPV (7.5-11.0) fL Gran % (36.0-66.0) % Immature Gran % (Auto) (0.00-0.4) % Nucleat RBC Rel Count (0.00-0.1) % Eos # (Auto) (0-0.5) x10^3/uL Immature Gran # (Auto) (0.00-0.03) x10^3u/L Absolute Lymphs (auto) (1.0-4.6) x10^3/uL Absolute Monos (auto) (0.0-1.3) x10^3/uL Absolute Nucleated RBC (0.00-0.01) x10^3u/L Lymphocytes % (24.0-44.0) % Monocytes % (0.0-12.0) % Eosinophils % (0.00-5.0) % Basophils % (0.0-0.4) % Absolute Granulocytes (1.4-6.9) x10^3/uL Basophils # (0-0.4) x10^3/uL pO2/FiO2 Ratio % VBG pH (7.32-7.42) VBG pCO2 at Pat Temp (42-55) mm/Hg VBG pO2 at Pat Temp (25-40) mm/Hg VBG HCO3 (22-28) meq/L VBG O2 Sat (Adrian) (95-100) VBG Base Excess (-2.0-2.0) VBG Hemoglobin VBG Carboxyhemoglobin (0.0-6.9) % T HGB POC Potassium (3.5-5.1) Sodium (137-145) mmol/L Potassium (3.5-5.1) mmol/L Chloride (98-107) mmol/L Carbon Dioxide (22-30) mmol/L Anion Gap (5-15) MEQ/L BUN (9-20) mg/dL Creatinine (0.66-1.25) mg/dL Estimated GFR ML/MIN Glucose (74-106) mg/dL POC Glucometer 244 H (50 to 500) mg/dL Lactic Acid (0.4-2.0) Calcium (8.4-10.2) mg/dL Magnesium (1.6-2.3) mg/dL Total Bilirubin (0.2-1.3) mg/dL AST (17-59) U/L ALT (0-50) U/L Alkaline Phosphatase (38-126) U/L Troponin I (0.000-0.034) ng/mL Serum Total Protein (6.3-8.2) g/dL Albumin (3.5-5.0) g/dL Amylase (30-110) U/L Lipase (23-300) U/L Urine Color (Yellow) Urine Appearance (Clear) Urine pH (4.6-8.0) Ur Specific Howell (1.005-1.030) Urine Protein (Negative) Urine Glucose (UA) (Negative) mg/dL Urine Ketones (Negative) Urine Blood (Negative) Urine Nitrite (Negative) Urine Bilirubin (Negative) Urine Urobilinogen (0.2) mg/dL Ur Leukocyte Esterase (Negative) U Hyaline Cast (Auto) (0-2) /LPF Urine Microscopic RBC (0-5) /HPF Urine Microscopic WBC (0-5) /HPF Ur Epithelial Cells (None Seen) /HPF Urine Bacteria (None Seen) /HPF Urine Culture Reflexed (NO) Accuchecks Date 04/01/23 Date 04/01/23 Date 04/01/23 Date 04/01/23 Date 04/01/23 Time 13:00 Time 12:00 Time 11:00 Time 09:15 - Radiology Impressions Radiology Exams & Impressions: Radiology Procedures Category Date Time Status ABDOMEN AND PELVIS W/0 CONTRAS [CT] Stat Exams 04/01/23 06:40 Completed - Other Procedures and Tests Respiratory Therapy 04/01/23 10:44 Oxygen Nasal Cannula 2 lpm Assessment/Plan (1) DKA (diabetic ketoacidoses) Current Visit: Yes Status: Acute Qualifiers: Assessment & Plan: ASSESSMENT 1. Diabetic Ketoacidosis 2. Hyperkalemia 3. Acute Kidney Injury 4. Elevated Lactate 5. Chronic Anemia 6. Type II Diabetes Mellitus PLAN 1. DKA protocol with insulin gtt + D5 + NS 2. q4hr BMP 3. K improved 4. Cr improving 5. Monitor H/H SQ Heparin/PPI Critical Care Time: 60 Minutes The entirety of this encounter was done via telemedicine Moris Weaver MD Pulmonary and Critical Care Medicine Code(s): E11.10 - TYPE 2 DIABETES MELLITUS WITH KETOACIDOSIS WITHOUT COMA Telemedicine Encounter - Telemedicine Encounter Telemedicine Encounter: The entirety of this encounter was performed via Telemedicine"
[2023-04-01] MEDS: NEURONTIN PO SCH ×2 (14:59→21:40)
[2023-04-01] MEDS ORDERED: NON-FORMULARY ITEM (Gabapentin [Gralise] 600 MG Tab.Er.24h) PO SCH (15:00)
[2023-04-01 15:33] LABS: ANION GAP 21.1 MEQ/L (5-15); BLOOD UREA NITROGEN 35 mg/dL (9-20); CHLORIDE 109 mmol/L (98-107); Calcium 8.8 mg/dL (8.4-10.2); Carbon Dioxide 17 mmol/L (22-30); Creatinine 1 1.22 mg/dL (0.66-1.25); EST GLOMERULAR FILTRATION RATE > 60.0 ML/MIN; Glucose 192 mg/dL (74-106); Potassium 4.6 mmol/L (3.5-5.1); SODIUM 142 mmol/L (137-145)
[2023-04-01] MEDS: TYLENOL 325 MG PO PRN ×2 (17:11→21:40)
[2023-04-01] MEDS ORDERED: D50W 50 ml Abboject IV ONE (18:09)
[2023-04-01] MEDS ORDERED: ENOXAPARIN SODIUM SQ SCH (19:45)
[2023-04-01 19:46] LABS: BLOOD UREA NITROGEN 34 mg/dL (9-20); CHLORIDE 108 mmol/L (98-107); Calcium 8.6 mg/dL (8.4-10.2); Carbon Dioxide 23 mmol/L (22-30); EST GLOMERULAR FILTRATION RATE > 60.0 ML/MIN; Glucose 133 mg/dL (74-106); Potassium 4.6 mmol/L (3.5-5.1); SODIUM 142 mmol/L (137-145)
[2023-04-01] MEDS ORDERED: Lantus Insulin SQ ONE (20:18)
[2023-04-01] MEDS ORDERED: HEPARIN 5000 UNITS/0.5 ML (HIGH RISK MED) SQ SCH (22:00)
[2023-04-01 23:49] LABS: ANION GAP 16.3 MEQ/L (5-15); BLOOD UREA NITROGEN 30 mg/dL (9-20); CHLORIDE 108 mmol/L (98-107); Calcium 8.1 mg/dL (8.4-10.2); Carbon Dioxide 18 mmol/L (22-30); EST GLOMERULAR FILTRATION RATE > 60.0 ML/MIN; Glucose 203 mg/dL (74-106); Potassium 4.4 mmol/L (3.5-5.1); SODIUM 138 mmol/L (137-145)
[2023-04-02] MEDS: HUMALOG SQ PRN ×3 (00:07→12:07)
[2023-04-02 03:39] LABS: ALBUMIN 3.4 g/dL (3.5-5.0); ALKALINE PHOSPHATASE 77 U/L (38-126); ANION GAP 12.8 MEQ/L (5-15); BLOOD UREA NITROGEN 30 mg/dL (9-20); CHLORIDE 108 mmol/L (98-107); Calcium 8.3 mg/dL (8.4-10.2); Carbon Dioxide 21 mmol/L (22-30); Creatinine 1 0.97 mg/dL (0.66-1.25); EST GLOMERULAR FILTRATION RATE > 60.0 ML/MIN; Glucose 188 mg/dL (74-106); Potassium 4.1 mmol/L (3.5-5.1); SGOT/AST 21 U/L (17-59); SGPT/ALT 16 U/L (0-50); SODIUM 137 mmol/L (137-145); Total Protein 6.1 g/dL (6.3-8.2)
[2023-04-02 04:53] LABS: Hematocrit 31.4 % (42-50); Hemoglobin 10.2 g/dL (12.5-18.0); Mean Cell Volume 91.5 fL (78-100); Mean Corpuscular Hemoglobin 29.7 pg (26-32); Mean Corpuscular Hgb Concent. 32.5 g/dL (32-36); Mean Platelet Volume 11.4 fL (7.5-11.0); Platelet Count 247 x10^3/uL (150-450); Red Blood Count 3.43 x10^6/uL (4.1-5.6); Red Cell Distribution Width 14.1 % (11.5-14.0); White Blood Count 9.9 x10^3/uL (4.0-10.5)
[2023-04-02] MEDS: NEURONTIN PO SCH (09:20)
[2023-04-02] MEDS ORDERED: Lantus Insulin SQ SCH (10:00)
[2023-04-02] MEDS ORDERED: ENOXAPARIN SODIUM SQ SCH (10:00)
[2023-04-02] MEDS ORDERED: PROTONIX 40 MG IV IV SCH (10:00)
[2023-04-02] MEDS: TYLENOL 325 MG PO PRN (10:26)
[2023-04-02] MEDS ORDERED: TORAdol 30 mg Injection IV PRN (11:39)
[2023-04-02 12:20] VITALS: BP 134/79; PULSE 72; O2SAT 98
--- NOTE | 2023-04-02 12:47 | PCM.DS ---
Discharge Summary Date of Admission: 04/01/23 10:00 Date of Discharge: 04/02/23 Admitting Physician: ANDERS BRAVO MD Primary Care Provider: RUSTY ORTIZ Allergies Allergies codeine Adverse Reaction (Severe, Verified 04/01/23 06:12) Vomiting hydrocodone bitartrate [From Vicodin] Adverse Reaction (Severe, Verified 04/01 06:12) Vomiting propoxyphene [From Darvocet-N 100] Adverse Reaction (Verified 04/01/23 06:12) Hospital Summary - Hospital Course Hospital Course: DKA improved off IV insulin since 10pm last night. Will resume home long acting insulin and monitor with sliding scale. Anion gap improved to 12. EKG personally reviewed by me and demonstrates NSR without any acute ST changes. However, due to the positive troponin (likely NSTEMI), possible anginal equivalent (abdominal pain on presentation), and very strong family history, wi ll proceed with planned transfer to [facility] for cardiology evaluation. I have directly completed the doctor to doctor calls with Dr. Carvajal (cardiology) and Dr. Shaffer (hospitalist), pending bed availability. No active chest pain currently. Stable for transport when bed becomes available. Discussed plan of care extensively with patient and with . Dr. Ortiz is also aware about the transfer plan and concurs. The patient was seen and examined via telemedicine. The entirety of this enc ounter was performed via telemedicine. The patient consented to this telemedicine encounter. - Vitals & Intake/Output Vital Signs: Vital Signs Temperature 98.8 F 04/02/23 12:00 Pulse Rate 72 04/02/23 12:00 Respiratory Rate 19 04/02/23 12:00 Blood Pressure 134/79 04/02/23 12:00 O2 Sat by Pulse Oximetry 98 04/02/23 12:00 Intake & Output: Intake & Output 03/31/23 04/01/23 04/02/23 04/03/23 11:59 11:59 11:59 11:59 Intake Total 1000 1806 Output Total 400 875 Balance 600 931 Weight 78.4 kg 78.4 kg - Lab Result Diagrams: 04/02/23 03:30 04/02/23 03:23 Lab Results-Last 24 Hrs: Lab Results-Last 24 Hours 04/01/23 04/01/23 04/01/23 Range/Units 12:59 14:00 14:55 WBC (4.0-10.5) x10^3/uL RBC (4.1-5.6) x10^6/uL Hgb (12.5-18.0) g/dL Hct (42-50) % MCV (78-100) fL MCH (26-32) pg MCHC (32-36) g/dL RDW (11.5-14.0) % Plt Count (150-450) x10^3/uL MPV (7.5-11.0) fL Sodium (137-145) mmol/L Potassium (3.5-5.1) mmol/L Chloride (98-107) mmol/L Carbon Dioxide (22-30) mmol/L Anion Gap (5-15) MEQ/L BUN (9-20) mg/dL Creatinine (0.66-1.25) mg/dL Estimated GFR ML/MIN Glucose (74-106) mg/dL POC Glucometer 244 H 212 H 172 H (74 to 106) mg/dL Hemoglobin A1c (4.5-6.0) % Lactic Acid (0.4-2.0) Calcium (8.4-10.2) mg/dL Magnesium (1.6-2.3) mg/dL Total Bilirubin (0.2-1.3) mg/dL AST (17-59) U/L ALT (0-50) U/L Alkaline Phosphatase (38-126) U/L Troponin I (0.000-0.034) ng/mL Serum Total Protein (6.3-8.2) g/dL Albumin (3.5-5.0) g/dL 04/01/23 04/01/23 04/01/23 Range/Units 15:05 15:05 15:34 WBC (4.0-10.5) x10^3/uL RBC (4.1-5.6) x10^6/uL Hgb (12.5-18.0) g/dL Hct (42-50) % MCV (78-100) fL MCH (26-32) pg MCHC (32-36) g/dL RDW (11.5-14.0) % Plt Count (150-450) x10^3/uL MPV (7.5-11.0) fL Sodium 142 (137-145) mmol/L Potassium 4.6 (3.5-5.1) mmol/L Chloride 109 H (98-107) mmol/L Carbon Dioxide 17 L (22-30) mmol/L Anion Gap 21.1 H (5-15) MEQ/L BUN 35 H (9-20) mg/dL Creatinine 1.22 (0.66-1.25) mg/dL Estimated GFR > 60.0 ML/MIN Glucose 192 H (74-106) mg/dL POC Glucometer (74 to 106) mg/dL Hemoglobin A1c (4.5-6.0) % Lactic Acid 1.2 (0.4-2.0) Calcium 8.8 (8.4-10.2) mg/dL Magnesium (1.6-2.3) mg/dL Total Bilirubin (0.2-1.3) mg/dL AST (17-59) U/L ALT (0-50) U/L Alkaline Phosphatase (38-126) U/L Troponin I 0.131 H* (0.000-0.034) ng/mL Serum Total Protein (6.3-8.2) g/dL Albumin (3.5-5.0) g/dL 04/01/23 04/01/23 04/01/23 Range/Units 15:59 17:00 18:07 WBC (4.0-10.5) x10^3/uL RBC (4.1-5.6) x10^6/uL Hgb (12.5-18.0) g/dL Hct (42-50) % MCV (78-100) fL MCH (26-32) pg MCHC (32-36) g/dL RDW (11.5-14.0) % Plt Count (150-450) x10^3/uL MPV (7.5-11.0) fL Sodium (137-145) mmol/L Potassium (3.5-5.1) mmol/L Chloride (98-107) mmol/L Carbon Dioxide (22-30) mmol/L Anion Gap (5-15) MEQ/L BUN (9-20) mg/dL Creatinine (0.66-1.25) mg/dL Estimated GFR ML/MIN Glucose (74-106) mg/dL POC Glucometer 155 H 111 H 88 (74 to 106) mg/dL Hemoglobin A1c (4.5-6.0) % Lactic Acid (0.4-2.0) Calcium (8.4-10.2) mg/dL Magnesium (1.6-2.3) mg/dL Total Bilirubin (0.2-1.3) mg/dL AST (17-59) U/L ALT (0-50) U/L Alkaline Phosphatase (38-126) U/L Troponin I (0.000-0.034) ng/mL Serum Total Protein (6.3-8.2) g/dL Albumin (3.5-5.0) g/dL 04/01/23 04/01/23 04/01/23 Range/Units 18:52 18:59 18:59 WBC (4.0-10.5) x10^3/uL RBC (4.1-5.6) x10^6/uL Hgb (12.5-18.0) g/dL Hct (42-50) % MCV (78-100) fL MCH (26-32) pg MCHC (32-36) g/dL RDW (11.5-14.0) % Plt Count (150-450) x10^3/uL MPV (7.5-11.0) fL Sodium 142 (137-145) mmol/L Potassium 4.6 (3.5-5.1) mmol/L Chloride 108 H (98-107) mmol/L Carbon Dioxide 23 (22-30) mmol/L Anion Gap 15.0 (5-15) MEQ/L BUN 34 H (9-20) mg/dL Creatinine 1.10 (0.66-1.25) mg/dL Estimated GFR > 60.0 ML/MIN Glucose 133 H (74-106) mg/dL POC Glucometer 127 H (74 to 106) mg/dL Hemoglobin A1c (4.5-6.0) % Lactic Acid (0.4-2.0) Calcium 8.6 (8.4-10.2) mg/dL Magnesium (1.6-2.3) mg/dL Total Bilirubin (0.2-1.3) mg/dL AST (17-59) U/L ALT (0-50) U/L Alkaline Phosphatase (38-126) U/L Troponin I 0.426 H* (0.000-0.034) ng/mL Serum Total Protein (6.3-8.2) g/dL Albumin (3.5-5.0) g/dL 04/01/23 04/01/23 04/01/23 Range/Units 19:58 22:25 23:35 WBC (4.0-10.5) x10^3/uL RBC (4.1-5.6) x10^6/uL Hgb (12.5-18.0) g/dL Hct (42-50) % MCV (78-100) fL MCH (26-32) pg MCHC (32-36) g/dL RDW (11.5-14.0) % Plt Count (150-450) x10^3/uL MPV (7.5-11.0) fL Sodium 138 (137-145) mmol/L Potassium 4.4 (3.5-5.1) mmol/L Chloride 108 H (98-107) mmol/L Carbon Dioxide 18 L (22-30) mmol/L Anion Gap 16.3 H (5-15) MEQ/L BUN 30 H (9-20) mg/dL Creatinine 1.00 (0.66-1.25) mg/dL Estimated GFR > 60.0 ML/MIN Glucose 203 H (74-106) mg/dL POC Glucometer 109 H 229 H (74 to 106) mg/dL Hemoglobin A1c (4.5-6.0) % Lactic Acid (0.4-2.0) Calcium 8.1 L (8.4-10.2) mg/dL Magnesium (1.6-2.3) mg/dL Total Bilirubin (0.2-1.3) mg/dL AST (17-59) U/L ALT (0-50) U/L Alkaline Phosphatase (38-126) U/L Troponin I (0.000-0.034) ng/mL Serum Total Protein (6.3-8.2) g/dL Albumin (3.5-5.0) g/dL 04/01/23 04/02/23 04/02/23 Range/Units 23:58 03:23 03:23 WBC (4.0-10.5) x10^3/uL RBC (4.1-5.6) x10^6/uL Hgb (12.5-18.0) g/dL Hct (42-50) % MCV (78-100) fL MCH (26-32) pg MCHC (32-36) g/dL RDW (11.5-14.0) % Plt Count (150-450) x10^3/uL MPV (7.5-11.0) fL Sodium 137 (137-145) mmol/L Potassium 4.1 (3.5-5.1) mmol/L Chloride 108 H (98-107) mmol/L Carbon Dioxide 21 L (22-30) mmol/L Anion Gap 12.8 (5-15) MEQ/L BUN 30 H (9-20) mg/dL Creatinine 0.97 (0.66-1.25) mg/dL Estimated GFR > 60.0 ML/MIN Glucose 188 H (74-106) mg/dL POC Glucometer 217 H (74 to 106) mg/dL Hemoglobin A1c (4.5-6.0) % Lactic Acid (0.4-2.0) Calcium 8.3 L (8.4-10.2) mg/dL Magnesium 2.3 (1.6-2.3) mg/dL Total Bilirubin 1.20 (0.2-1.3) mg/dL AST 21 (17-59) U/L ALT 16 (0-50) U/L Alkaline Phosphatase 77 (38-126) U/L Troponin I (0.000-0.034) ng/mL Serum Total Protein 6.1 L (6.3-8.2) g/dL Albumin 3.4 L (3.5-5.0) g/dL 04/02/23 04/02/23 04/02/23 Range/Units 03:30 03:30 03:49 WBC 9.9 (4.0-10.5) x10^3/uL RBC 3.43 L (4.1-5.6) x10^6/uL Hgb 10.2 L (12.5-18.0) g/dL Hct 31.4 L (42-50) % MCV 91.5 (78-100) fL MCH 29.7 (26-32) pg MCHC 32.5 (32-36) g/dL RDW 14.1 H (11.5-14.0) % Plt Count 247 (150-450) x10^3/uL MPV 11.4 H (7.5-11.0) fL Sodium (137-145) mmol/L Potassium (3.5-5.1) mmol/L Chloride (98-107) mmol/L Carbon Dioxide (22-30) mmol/L Anion Gap (5-15) MEQ/L BUN (9-20) mg/dL Creatinine (0.66-1.25) mg/dL Estimated GFR ML/MIN Glucose (74-106) mg/dL POC Glucometer 173 H (74 to 106) mg/dL Hemoglobin A1c 10.50 H (4.5-6.0) % Lactic Acid (0.4-2.0) Calcium (8.4-10.2) mg/dL Magnesium (1.6-2.3) mg/dL Total Bilirubin (0.2-1.3) mg/dL AST (17-59) U/L ALT (0-50) U/L Alkaline Phosphatase (38-126) U/L Troponin I (0.000-0.034) ng/mL Serum Total Protein (6.3-8.2) g/dL Albumin (3.5-5.0) g/dL 04/02/23 04/02/23 04/02/23 Range/Units 04:10 07:59 11:57 WBC (4.0-10.5) x10^3/uL RBC (4.1-5.6) x10^6/uL Hgb (12.5-18.0) g/dL Hct (42-50) % MCV (78-100) fL MCH (26-32) pg MCHC (32-36) g/dL RDW (11.5-14.0) % Plt Count (150-450) x10^3/uL MPV (7.5-11.0) fL Sodium (137-145) mmol/L Potassium (3.5-5.1) mmol/L Chloride (98-107) mmol/L Carbon Dioxide (22-30) mmol/L Anion Gap (5-15) MEQ/L BUN (9-20) mg/dL Creatinine (0.66-1.25) mg/dL Estimated GFR ML/MIN Glucose (74-106) mg/dL POC Glucometer 232 H 251 H (74 to 106) mg/dL Hemoglobin A1c (4.5-6.0) % Lactic Acid (0.4-2.0) Calcium (8.4-10.2) mg/dL Magnesium (1.6-2.3) mg/dL Total Bilirubin (0.2-1.3) mg/dL AST (17-59) U/L ALT (0-50) U/L Alkaline Phosphatase (38-126) U/L Troponin I 0.456 H* (0.000-0.034) ng/mL Serum Total Protein (6.3-8.2) g/dL Albumin (3.5-5.0) g/dL Micro Results-Entire Visit: Accuchecks Date 04/02/23 Date 04/02/23 Date 04/01/23 Date 04/01/23 Date 04/01/23 Date 04/01/23 Date 04/01/23 Date 04/01/23 Date 04/01/23 Date 04/01/23 Date 04/01/23 Date 04/01/23 Date 04/01/23 Date 04/01/23 Date 04/01/23 Date 04/01/23 Date 04/01/23 Date 04/01/23 Time 12:00 Time 08:08 Time 18:55 Time 18:55 Time 18:55 Time 18:55 Time 18:55 Time 18:55 Time 18:55 Time 18:55 Time 18:55 Time 18:55 Time 18:55 Time 16:00 Time 17:00 Time 16:00 Time 15:00 Time 13:00 - Radiology Exams Ordered Rad Exams-Entire Visit: Radiology Procedures Category Date Time Status ABDOMEN AND PELVIS W/0 CONTRAS [CT] Stat Exams 04/01/23 06:40 Completed ECHO W/2D AND DOPPLER [US] Stat Exams 04/01/23 16:15 Taken - Procedures and Test Procedures and Tests throughout Hospitalization: Therapy Orders & Screens 04/01/23 10:44 Oxygen Nasal Cannula 2 lpm Comment: 2-4 L to keep sats above 95% Diagnosis: DKA 04/01/23 15:55 Respiratory Therapy Assessment ONCE Comment: Diagnosis: DKA 04/01/23 19:00 EKG ROUTINE Comment: Diagnosis: DKA 04/02/23 08:37 EKG STAT Comment: Diagnosis: DKA Discharge Exam General Appearance: no apparent distress Neurologic Exam: alert, oriented x 3, cooperative, flat clothier II-XII nml as tested, normal mood/affect, nml cerebellar function Eye Exam: PERRL, EOMI, eyes nml inspection Ears, Nose, Throat Exam: normal ENT inspection Neck Exam: normal inspection, non-tender, supple, full range of motion Respiratory Exam: normal breath sounds, lungs clear Cardiovascular Exam: regular rate/rhythm, normal heart sounds Gastrointestinal/Abdomen Exam: soft Male Genitalia Exam: deferred Rectal Exam: deferred Back Exam: normal inspection, normal range of motion Extremity Exam: normal inspection Skin Exam: normal color Final Diagnosis/Problem List - Final Discharge Diagnosis/Problem (1) DKA (diabetic ketoacidoses) Current Visit: Yes Status: Acute Assessment & Plan: Transition to SQ insulin Code(s): E11.10 - TYPE 2 DIABETES MELLITUS WITH KETOACIDOSIS WITHOUT COMA - Discharge Disposition: Home, Self-Care Condition: Stable Prescriptions: No Action Insulin Aspart [NovoLOG Insulin] 1 units SQ UD Insulin Glargine [Lantus Insulin] 35 units SQ QAM Ascorbic Acid 500 mg [Vitamin C 500 MG] 1,000 mg PO DAILY Gabapentin 600 mg PO TID Follow up with: RUSTY ORTIZ MD [Primary Care Provider] -
== END 2023-04-02 14:00 | disposition home or self-care (01) | DRG 638 ==
LOC: ED 06:05 → ICU 10:00
PROVIDERS: ADMIT Internal Medicine Critical Care Medicine; ATTEND General Practice
DX: E11.10 Type 2 diabetes mellitus with ketoacidosis without coma (principal); N17.9 Acute kidney failure, unspecified; K44.9 Diaphragmatic hernia without obstruction or gangrene; E87.5 Hyperkalemia; D64.9 Anemia, unspecified; Z79.899 Other long term (current) drug therapy; Z20.828 Contact with and (suspected) exposure to other viral communicable diseases
CPT/HCPCS: 36415; 74176; 80048; 80053; 81001; 82150; 82805; 82947; 83036; 83605; 83690; 83735; 84484; 85025; 85027; 93005; 93306; 96360; 96361; 96374; 96375; 99285; J1650; J1815; J1817; J1885; J2405; J3010; Q3014; A9270-GY

== ENCOUNTER 2023-12-22 13:59 | Inpatient (IN) | payer SELFPAY ==
--- NOTE | 2023-12-22 14:14 | ERPHSYRPT ---
- History of Present Illness Time Seen by Provider: 12/22/23 14:13 Historian: patient, family ( provided additional, independent history secondary to patient not feeling well and unable to focus on questioning) Exam Limitations: clinical condition Physician History: This is a 63-year-old diabetic white male patient of Dr. Saunders who presents from home and transported here to the emergency department by the patient's spouse. Patient has insulin-dependent diabetes. Patient's spouse reports that the patient was not feeling that well yesterday but then, this morning, since 8 AM, he has had multiple episodes of vomiting. He currently denies chest pain and denies shortness of breath. He has mild to moderate amount of abdominal pain that is diffuse in its location. Patient does not see a superintendent logging. However he did have episode in the past, when he had multiple episode of vomiting and became very dehydrated, of acute renal failure but that had resolve d completely. Timing/Duration: yesterday, worse Activities at Onset: none Quality: cramping Abdominal Pain Onset Location: generalized abdomen (Intermittent) Pain Radiation: no radiation Severity of Pain-Max: mild Severity of Pain-Current: mild Modifying Factors: Improves With: vomiting Associated Symptoms: denies symptoms, loss of appetite, nausea, vomiting, weakness Previous symptoms: same symptoms as today, no recent treatment Allergies/Adverse Reactions: codeine Adverse Reaction (Severe, Verified 12/22/23 14:13) Vomiting hydrocodone bitartrate [From Vicodin] Adverse Reaction (Severe, Verified 12/22/23 14:13) Vomiting propoxyphene [From Darvocet-N 100] Adverse Reaction (Verified 12/22/23 14:13) Home Medications: Insulin Aspart [NovoLOG Insulin] 1 units SQ UD 05/29/16 [History] Insulin Glargine [Lantus Insulin] 35 units SQ QAM 03/25/19 [History] Ascorbic Acid 500 mg [Vitamin C 500 MG] 1,000 mg PO DAILY 03/08/23 [History] Gabapentin 600 mg PO TID 04/01/23 [History] Aspirin EC 81 mg [Ecotrin 81 mg] 81 mg PO DAILY 12/22/23 [History] Nitroglycerin 0.4 mg Tablet [Nitrostat 0.4 MG Tablet] 0.4 mg PO UD 12/22/23 [History] Hx Tetanus, Diphtheria Vaccination/Date Given: Yes Hx Influenza Vaccination/Date Given: No Hx Pneumococcal Vaccination/Date Given: No Travel Risk - International Travel Have you traveled outside of the country in past 3 weeks: No - Coronavirus Screening Are you exhibiting any of the following symptoms?: Yes Symptoms: Vomiting/Diarrhea Close contact with a COVID-19 positive Pt in past 14-21 Days: No - Vaccine Status Have you recieved a Covid-19 vaccination: Yes Special Machine Stitcher: Unknown - Vaccination Dates Dates if Unknown: unknown - Review of Systems Constitutional: Weakness Eyes: No Symptoms Ears, Nose, & Throat: No Symptoms Respiratory: No Symptoms Cardiac: No Symptoms Abdominal/Gastrointestinal: Abdominal Pain, Nausea, Vomiting, Diarrhea, Appetite Changes Genitourinary Symptoms: No Symptoms Musculoskeletal: No Symptoms Skin: No Symptoms Neurological: No Symptoms Psychological: No Symptoms Endocrine: No Symptoms Hematologic/Lymphatic: No Symptoms Immunological/Allergic: No Symptoms All Other Systems: Reviewed and Negative - Past Medical History Pertinent Past Medical History: Yes Neurological History: Seizures ENT History: No Pertinent History Cardiac History: No Pertinent History Respiratory History: No Pertinent History Endocrine Medical History: Diabetes Type II Musculoskeletal History: No Pertinent History GI Medical History: No Pertinent History History: No Pertinent History Psycho-Social History: No Pertinent History Male Reproductive Disorders: No Pertinent History Other Medical History: FX L LEG AND FOOT subsequent infection. diarrhea x3 weeks, was hospitalized for gi sx. gangrene, sepsis 2014 - Past Surgical History Past Surgical History: Yes Neuro Surgical History: No Pertinent History Cardiac: No Pertinent History Respiratory: No Pertinent History Gastrointestinal: Cholecystectomy, Hernia Repair Genitourinary: No Pertinent History Musculoskeletal: Orthopedic Surgery Male Surgical History: No Pertinent History Other Surgical History: right femur fixed at age 15. left foot broke at age 20. left leg and foot surgery ,,I&D of left foot, polyps removed - Social History Smoking Status: Former smoker Exposure to second hand smoke: Yes Drug Use: none Patient Lives Alone: No - Nursing Vital Signs Nursing Vital Signs: Initial Vital Signs Pulse Rate 116 H 12/22/23 14:13 Respiratory Rate 19 12/22/23 14:13 Blood Pressure 146/77 12/22/23 14:13 O2 Sat by Pulse Oximetry 97 12/22/23 14:13 Pain Scale Pain Intensity 0 - Physical Exam General Appearance: mild distress, alert, anxiety Eye Exam: PERRL/EOMI, eyes nml inspection Ears, Nose, Throat Exam: normal ENT inspection, dry mucous membranes Neck Exam: normal inspection, non-tender, supple, full range of motion Respiratory Exam: normal breath sounds, lungs clear, airway intact, No chest tenderness, No respiratory distress Cardiovascular Exam: regular rate/rhythm, normal heart sounds, normal peripheral pulses Gastrointestinal/Abdomen Exam: soft, normal bowel sounds, tenderness Rectal Exam: not done Back Exam: normal inspection (Mild diffuse), normal range of motion, No CVA tenderness, No vertebral tenderness Extremity Exam: normal inspection, normal range of motion, pelvis stable Neurologic Exam: alert, oriented x 3, cooperative, correctional nurse II-XII nml as tested, normal mood/affect Skin Exam: normal color, warm, dry Lymphatic Exam: No adenopathy SpO2 Interpretation: normal O2 Delivery: Room Air - Course Nursing assessment & vital signs reviewed: Yes EKG Interpreted by Me: RATE (99), Sinus Rhythm, NORMAL AXIS, NORMAL INTERVALS, NORMAL QRS, NORMAL ST-T, Other (No evidence of acute ischemic changes on today's twelve-lead EKG.) Ordered Tests: Active Orders 24 hr Category Date Time Status Bedrest TOLERATED Activity 12/22/23 17:55 Active Bedrest with BRP/BSC TOLERATED Activity 12/22/23 17:55 Active Admit as Inpatient ROUTINE Care 12/22/23 17:55 Active Code Status Order ROUTINE Care 12/22/23 17:55 Active EKG-ER Only STAT Care 12/22/23 15:33 Completed Elevate HOB TOLERATED Care 12/22/23 17:55 Active IV Insertion STAT Care 12/22/23 14:31 Completed Weight,Daily 0600 Care 12/22/23 17:55 Active NPO except Meds Diet 12/22/23 17:55 Active ABDOMEN AND PELVIS W/0 CONTRAS [CT] Stat Exams 12/22/23 14:31 Completed AMYLASE Stat Lab 12/22/23 14:40 Completed CBC W DIFF AM.LAB Lab 12/23/23 04:00 Ordered CBC W DIFF Stat Lab 12/22/23 14:40 Completed CMP AM.LAB Lab 12/23/23 04:00 Ordered CMP Stat Lab 12/22/23 14:40 Completed LIPASE Stat Lab 12/22/23 14:40 Completed Lactic Acid Stat Lab 12/22/23 14:31 Completed Lactic Acid Stat Lab 12/22/23 16:45 Received NT PRO BNPII AM.LAB Lab 12/23/23 04:00 Ordered POCT GLUCOSE Stat Lab 12/22/23 17:07 Completed TROPONIN Q4H Lab 12/22/23 15:45 Completed TROPONIN Q4H Lab 12/22/23 19:45 Ordered TROPONIN Q4H Lab 12/22/23 23:45 Ordered UA W/RFX UR CULTURE Stat Lab 12/22/23 15:56 Completed Transfer Order Routine Transfer 12/22/23 Completed Medication Summary Generic Name Dose Route Start Last Admin Trade Name Freq PRN Reason Stop Dose Admin Acetaminophen 650 mg 12/22/23 17:55 Acetaminophen 325 Mg Tablet PO 01/21/24 17:54 Q4H PRN PRN PAIN, FEVER, HEADACHE Enoxaparin Sodium 40 mg 12/23/23 10:00 Enoxaparin Sodium 40 Mg/0.4 Ml Syringe SQ 01/22/24 09:59 DAILY AURA Sodium Chloride 1,000 mls @ 100 mls/hr 12/22/23 17:55 12/22/23 18:03 Sodium Chloride 0.9% 1000 Ml IV 01/21/24 17:54 100 mls/hr .Q10H AURA Administration INSULIN REGULAR IN 0.9 % NACL 100 unit in 100 mls @ 7.5 mls/hr 12/22/23 18:19 12/22/23 18:26 Myxredlin 100 Unit/100 Ml Bag IV 01/21/24 18:18 0.1 unit/kg/hr .[id number] PRN 7.5 mls/hr HYPERGLYCEMIA Administration Protocol 0.1 UNIT/KG/HR Insulin Human Regular 10 unit 12/22/23 18:32 12/22/23 18:41 Insulin Regular, Human 1 Unit IV 12/22/23 18:33 10 unit STAT ONE Administration Ondansetron HCl 4 mg 12/22/23 17:55 Ondansetron Hcl 4 Mg/2 Ml Vial IV 01/21/24 17:54 Q6H PRN PRN NAUSEA/VOMITING Discontinued Medications Generic Name Dose Route Start Last Admin Trade Name Freq PRN Reason Stop Dose Admin Sodium Chloride 1,000 mls @ 999 mls/hr 12/22/23 14:31 03/06/24 15:43 Sodium Chloride 0.9% 1000 Ml IV 12/22/23 15:31 Infused .Q1H1M STA Infusion Sodium Chloride Confirm 12/22/23 14:38 Sodium Chloride 0.9% 1000 Ml Administered 12/22/23 14:39 Dose 1,000 mls @ ud .ROUTE .STK-MED ONE Lactated Ringer's 1,000 mls @ 999 mls/hr 12/22/23 15:42 12/22/23 17:07 Lactated Ringers IV 12/22/23 16:42 Infused .Q1H1M ONE Infusion Lactated Ringer's Confirm 12/22/23 15:58 Lactated Ringers Administered 12/22/23 15:59 Dose 1,000 mls @ ud IV .STK-MED ONE Insulin Human Regular 20 unit 12/22/23 15:30 12/22/23 15:39 Insulin Regular, Human 1 Unit IV 12/22/23 15:31 20 unit STAT ONE Administration Insulin Human Regular Confirm 12/22/23 15:35 Insulin Regular, Human 1 Unit Administered 12/22/23 15:36 Dose 20 unit .ROUTE .STK-MED ONE Ondansetron HCl 4 mg 12/22/23 15:30 12/22/23 15:40 Ondansetron Hcl 4 Mg/2 Ml Vial IV 12/22/23 15:31 4 mg STAT ONE Administration Ondansetron HCl Confirm 12/22/23 15:33 Ondansetron Hcl 4 Mg/2 Ml Vial Administered 12/22/23 15:34 Dose 4 mg .ROUTE .STK-MED ONE Pantoprazole Sodium 40 mg 12/22/23 14:31 12/22/23 14:44 Pantoprazole 40 Mg Vial IV 12/22/23 14:32 40 mg STAT ONE Administration Pantoprazole Sodium Confirm 12/22/23 14:37 Pantoprazole 40 Mg Vial Administered 12/22/23 14:38 Dose 40 mg IV .STK-MED ONE Prochlorperazine Edisylate 5 mg 12/22/23 14:31 12/22/23 14:42 Prochlorperazine Edisylate 10 Mg/2 Ml Vial IV 12/22/23 14:32 5 mg STAT ONE Administration Prochlorperazine Edisylate Confirm 12/22/23 14:37 Prochlorperazine Edisylate 10 Mg/2 Ml Vial Administered 12/22/23 14:38 Dose 10 mg .ROUTE .[facility]-MED ONE Lab/Rad Data: Laboratory Result Diagrams 12/22/23 14:40 12/22/23 14:40 Laboratory Results 12/22/23 12/22/23 12/22/23 Range/Units 17:07 15:56 15:45 WBC (4.0-10.5) x10^3/uL RBC (4.1-5.6) x10^6/uL Hgb (12.5-18.0) g/dL Hct (42-50) % MCV (78-100) fL MCH (26-32) pg MCHC (32-36) g/dL RDW (11.5-14.0) % Plt Count (150-450) x10^3/uL MPV (7.5-11.0) fL Gran % (36.0-66.0) % Immature Gran % (Auto) (0.00-0.4) % Nucleat RBC Rel Count (0.00-0.1) % Eos # (Auto) (0-0.5) x10^3/uL Immature Gran # (Auto) (0.00-0.03) x10^3u/L Absolute Lymphs (auto) (1.0-4.6) x10^3/uL Absolute Monos (auto) (0.0-1.3) x10^3/uL Absolute Nucleated RBC (0.00-0.01) x10^3u/L Lymphocytes % (24.0-44.0) % Monocytes % (0.0-12.0) % Eosinophils % (0.00-5.0) % Basophils % (0.0-0.4) % Absolute Granulocytes (1.4-6.9) x10^3/uL Basophils # (0-0.4) x10^3/uL Sodium (135-145) mmol/L Potassium (3.5-5.1) mmol/L Chloride (98-107) mmol/L Carbon Dioxide (22-30) mmol/L Anion Gap (5-15) MEQ/L BUN (9-20) mg/dL Creatinine (0.66-1.25) mg/dL Estimated GFR ML/MIN Glucose (74-106) mg/dL POC Glucometer 460 H (74 to 106) mg/dL Lactic Acid (0.4-2.0) Calcium (8.4-10.2) mg/dL Total Bilirubin (0.2-1.3) mg/dL AST (17-59) U/L ALT (0-50) U/L Alkaline Phosphatase (38-126) U/L Troponin I < 0.012 (0.000-0.034) ng/mL Serum Total Protein (6.3-8.2) g/dL Albumin (3.5-5.0) g/dL Amylase (30-110) U/L Lipase (23-300) U/L Urine Color Yellow (Yellow) Urine Appearance Clear (Clear) Urine pH 5.0 (4.6-8.0) Ur Specific [place] 1.025 (1.005-1.030) Urine Protein 30 (Negative) Urine Glucose (UA) >=1000 A (Negative) mg/dL Urine Ketones 80 A (Negative) Urine Blood Negative (Negative) Urine Nitrite Negative (Negative) Urine Bilirubin Negative (Negative) Urine Urobilinogen 0.2 (0.2) mg/dL Ur Leukocyte Esterase Negative (Negative) U Hyaline Cast (Auto) NONE SEEN (0-2) /LPF Urine Microscopic RBC 0-2 (0-5) /HPF Urine Microscopic WBC 0-2 (0-5) /HPF Ur Epithelial Cells None Seen (None Seen) /HPF Urine Bacteria None Seen (None Seen) /HPF Urine Culture Reflexed NO (NO) Influenza Type A Ag (NEGATIVE) Influenza Type B Ag (NEGATIVE) RSV (PCR) (NEGATIVE) SARS-CoV-2 (PCR) (NEGATIVE) 12/22/23 12/22/23 12/22/23 Range/Units 14:52 14:40 14:40 WBC 16.5 H (4.0-10.5) x10^3/uL RBC 4.55 (4.1-5.6) x10^6/uL Hgb 13.4 (12.5-18.0) g/dL Hct 41.4 L (42-50) % MCV 91.0 (78-100) fL MCH 29.5 (26-32) pg MCHC 32.4 (32-36) g/dL RDW 13.1 (11.5-14.0) % Plt Count 307 (150-450) x10^3/uL MPV 12.0 H (7.5-11.0) fL Gran % 88.6 H (36.0-66.0) % Immature Gran % (Auto) 0.4 (0.00-0.4) % Nucleat RBC Rel Count 0.0 (0.00-0.1) % Eos # (Auto) 0.01 (0-0.5) x10^3/uL Immature Gran # (Auto) 0.07 H (0.00-0.03) x10^3u/L Absolute Lymphs (auto) 1.15 (1.0-4.6) x10^3/uL Absolute Monos (auto) 0.53 (0.0-1.3) x10^3/uL Absolute Nucleated RBC 0.00 (0.00-0.01) x10^3u/L Lymphocytes % 7.0 L (24.0-44.0) % Monocytes % 3.2 (0.0-12.0) % Eosinophils % 0.1 (0.00-5.0) % Basophils % 0.7 (0.0-0.4) % Absolute Granulocytes 14.62 H (1.4-6.9) x10^3/uL Basophils # 0.12 (0-0.4) x10^3/uL Sodium 137 (135-145) mmol/L Potassium 5.8 H (3.5-5.1) mmol/L Chloride 101 (98-107) mmol/L Carbon Dioxide 7 L* (22-30) mmol/L Anion Gap 34.8 H (5-15) MEQ/L BUN 46 H (9-20) mg/dL Creatinine 1.67 H (0.66-1.25) mg/dL Estimated GFR 45.4 ML/MIN Glucose 726 H* (74-106) mg/dL POC Glucometer (74 to 106) mg/dL Lactic Acid (0.4-2.0) Calcium 10.0 (8.4-10.2) mg/dL Total Bilirubin 2.00 H (0.2-1.3) mg/dL AST 23 (17-59) U/L ALT 27 (0-50) U/L Alkaline Phosphatase 105 (38-126) U/L Troponin I (0.000-0.034) ng/mL Serum Total Protein 7.7 (6.3-8.2) g/dL Albumin 4.9 (3.5-5.0) g/dL Amylase 57 (30-110) U/L Lipase 30 (23-300) U/L Urine Color (Yellow) Urine Appearance (Clear) Urine pH (4.6-8.0) Ur Specific [place] (1.005-1.030) Urine Protein (Negative) Urine Glucose (UA) (Negative) mg/dL Urine Ketones (Negative) Urine Blood (Negative) Urine Nitrite (Negative) Urine Bilirubin (Negative) Urine Urobilinogen (0.2) mg/dL Ur Leukocyte Esterase (Negative) U Hyaline Cast (Auto) (0-2) /LPF Urine Microscopic RBC (0-5) /HPF Urine Microscopic WBC (0-5) /HPF Ur Epithelial Cells (None Seen) /HPF Urine Bacteria (None Seen) /HPF Urine Culture Reflexed (NO) Influenza Type A Ag NEGATIVE (NEGATIVE) Influenza Type B Ag NEGATIVE (NEGATIVE) RSV (PCR) NEGATIVE (NEGATIVE) SARS-CoV-2 (PCR) NEGATIVE (NEGATIVE) 12/22/23 Range/Units 14:31 WBC (4.0-10.5) x10^3/uL RBC (4.1-5.6) x10^6/uL Hgb (12.5-18.0) g/dL Hct (42-50) % MCV (78-100) fL MCH (26-32) pg MCHC (32-36) g/dL RDW (11.5-14.0) % Plt Count (150-450) x10^3/uL MPV (7.5-11.0) fL Gran % (36.0-66.0) % Immature Gran % (Auto) (0.00-0.4) % Nucleat RBC Rel Count (0.00-0.1) % Eos # (Auto) (0-0.5) x10^3/uL Immature Gran # (Auto) (0.00-0.03) x10^3u/L Absolute Lymphs (auto) (1.0-4.6) x10^3/uL Absolute Monos (auto) (0.0-1.3) x10^3/uL Absolute Nucleated RBC (0.00-0.01) x10^3u/L Lymphocytes % (24.0-44.0) % Monocytes % (0.0-12.0) % Eosinophils % (0.00-5.0) % Basophils % (0.0-0.4) % Absolute Granulocytes (1.4-6.9) x10^3/uL Basophils # (0-0.4) x10^3/uL Sodium (135-145) mmol/L Potassium (3.5-5.1) mmol/L Chloride (98-107) mmol/L Carbon Dioxide (22-30) mmol/L Anion Gap (5-15) MEQ/L BUN (9-20) mg/dL Creatinine (0.66-1.25) mg/dL Estimated GFR ML/MIN Glucose (74-106) mg/dL POC Glucometer (74 to 106) mg/dL Lactic Acid 3.4 H (0.4-2.0) Calcium (8.4-10.2) mg/dL Total Bilirubin (0.2-1.3) mg/dL AST (17-59) U/L ALT (0-50) U/L Alkaline Phosphatase (38-126) U/L Troponin I (0.000-0.034) ng/mL Serum Total Protein (6.3-8.2) g/dL Albumin (3.5-5.0) g/dL Amylase (30-110) U/L Lipase (23-300) U/L Urine Color (Yellow) Urine Appearance (Clear) Urine pH (4.6-8.0) Ur Specific [place] (1.005-1.030) Urine Protein (Negative) Urine Glucose (UA) (Negative) mg/dL Urine Ketones (Negative) Urine Blood (Negative) Urine Nitrite (Negative) Urine Bilirubin (Negative) Urine Urobilinogen (0.2) mg/dL Ur Leukocyte Esterase (Negative) U Hyaline Cast (Auto) (0-2) /LPF Urine Microscopic RBC (0-5) /HPF Urine Microscopic WBC (0-5) /HPF Ur Epithelial Cells (None Seen) /HPF Urine Bacteria (None Seen) /HPF Urine Culture Reflexed (NO) Influenza Type A Ag (NEGATIVE) Influenza Type B Ag (NEGATIVE) RSV (PCR) (NEGATIVE) SARS-CoV-2 (PCR) (NEGATIVE) - Progress Progress: improved, re-examined Progress Note: 12/22/23 15:40 This patient's medical issue is 1 of moderate to high complexity. The level complex in the workup performed is based on review the patient's past medical history, review the patient's medication list, review of patient drug allergy list, history present illness and physical findings on examination. The workup in this patient includes placement of intravenous line, infusion of normal saline solution, CBC, CMP, EKG, troponin level, amylase, lipase, urinalysis and CT scan of the abdomen pelvis. Will also perform a lactic acid level. We will obtain viral swabs as well. 12/22/23 17:18 I reviewed and interpreted the patient's laboratory data results. This patient has DKA. He also has leukocytosis. This may be secondary to dehydration as well as multiple episodes of vomiting. Patient has a CO2 of 7 and an anion gap of over 34. The initial blood sugar was 726. Repeat Accu-Chek after 20 units of regular insulin is 466. CT scan of the abdomen pelvis without contrast does not show any acute abdominal pelvic abnormalities. This study was interpreted by the radiologist and I reviewed the impression. I spoke with Dr. Munoz, the telehospitalist. I reviewed the patient history, I reviewed the patient presenting complaint. I also reviewed the laboratory and radiographic study results. We will admit this patient into the ICU. He agrees with that plan. Counseled pt/family regarding: lab results, diagnosis, rad results Medical Desision Making - Independent Historian Additional History obtained from: Spouse - Diagnostic Testing Diagnostic test were ordered, analyzed, and reviewed by me: Yes Radiological Interpretation: Reviewed by me, Teleradiologist Report - Risk of complications The pt has a high risk of morbidity or mortality based on: Decision regarding hospitilization or escalation of hosp level of care - Departure Departure Disposition: In-patient Admission Clinical Impression: DKA (diabetic ketoacidosis), Vomiting, Abdominal pain Condition: Fair Critical Care Time: Yes Critical Care Time(excluding separately billable procedures): Critical 30-74 mins (45 minutes)
[2023-12-22] MEDS ORDERED: Compazine 10 MG/2 ML ONE (14:37)
[2023-12-22] MEDS ORDERED: PROTONIX 40 MG IV IV ONE (14:37)
[2023-12-22] MEDS ORDERED: Sodium Chloride 0.9% 1000 ML 1,000 ML ONE ×2 (14:38→17:59)
[2023-12-22] MEDS: Sodium Chloride 0.9% 1000 ML 1,000 ML IV STA (14:41)
[2023-12-22] MEDS: Compazine 10 MG/2 ML IV ONE (14:42)
[2023-12-22] MEDS: PROTONIX 40 MG IV IV ONE (14:44)
[2023-12-22 14:56] LABS: Absolute Neutrophil Ct (ANC) 14.62 x10^3/uL (1.4-6.9); BASOPHIL % 0.7 % (0.0-0.4); Basophil (Absolute #) 0.12 x10^3/uL (0-0.4); Eosinophil % 0.1 % (0.00-5.0); Eosinophil (Absolute #) 0.01 x10^3/uL (0-0.5); Hematocrit 41.4 % (42-50); Hemoglobin 13.4 g/dL (12.5-18.0); IMMATURE GRAN # 0.07 x10^3u/L (0.00-0.03); IMMATURE GRAN % 0.4 % (0.00-0.4); Lymphocyte (Absolute #) 1.15 x10^3/uL (1.0-4.6); Mean Corpuscular Hemoglobin 29.5 pg (26-32); Mean Corpuscular Hgb Concent. 32.4 g/dL (32-36); Monocyte (Absolute #) 0.53 x10^3/uL (0.0-1.3); Monocytes % 3.2 % (0.0-12.0); Neutrophil % 88.6 % (36.0-66.0); Platelet Count 307 x10^3/uL (150-450); Red Blood Count 4.55 x10^6/uL (4.1-5.6); Red Cell Distribution Width 13.1 % (11.5-14.0); White Blood Count 16.5 x10^3/uL (4.0-10.5)
[2023-12-22 15:14] LABS: ALBUMIN 4.9 g/dL (3.5-5.0); ANION GAP 34.8 MEQ/L (5-15); Creatinine 1 1.67 mg/dL (0.66-1.25); EST GLOMERULAR FILTRATION RATE 45.4 ML/MIN; Total Protein 7.7 g/dL (6.3-8.2)
[2023-12-22 15:23] LABS: Potassium 5.8 mmol/L (3.5-5.1)
[2023-12-22 15:33] LABS: INFLUENZA A NEGATIVE (NEGATIVE); INFLUENZA B NEGATIVE (NEGATIVE); RESPIRATORY SYNCTIAL VIRUS NEGATIVE (NEGATIVE); SARS-CoV-2 Xpert Express NEGATIVE (NEGATIVE)
[2023-12-22] MEDS ORDERED: Zofran 4 MG/2 ML VIAL ONE (15:33)
[2023-12-22] MEDS ORDERED: HUMULIN R ONE (15:35)
[2023-12-22] MEDS: HUMULIN R IV ONE ×2 (15:39→18:41)
[2023-12-22] MEDS: Zofran 4 MG/2 ML VIAL IV ONE (15:40)
[2023-12-22] MEDS ORDERED: Lactated Ringers 1,000 ML IV ONE (15:58)
[2023-12-22] MEDS: Lactated Ringers 1,000 ML IV ONE (16:00)
--- NOTE | 2023-12-22 16:27 | XRAY ---
Indication: Abdomen pain and vomiting. Multiple contiguous axial images obtained through the abdomen and pelvis without contrast. Comparison: April 01, 2023 Study is slightly degraded by respiration artifact throughout. Lung bases remain clear. Heart not enlarged. Noncontrasted stomach and bowel loops appear nonobstructed. Normal appendix. There is now mild diffuse scattered colonic fecal debris throughout including rectum. Again cholecystectomy. Urinary bladder is now markedly distended concerning for outlet obstruction versus neurogenic bladder. No free fluid/air. Remaining liver, pancreas, spleen, adrenal glands, kidneys, ureters, and bladder are unremarkable for noncontrast exam. Again mild aortoiliac calcifications without AAA. Osseous structures intact again with osteopenia mild degenerative changes throughout spine. Impression: 1. Respiration artifact. 2. New markedly distended urinary bladder. Rule out outlet obstruction versus neurogenic bladder. 3. New mild diffuse fecal stasis. 4. Again chronic findings including arteriosclerotic disease and chronic bony findings.
[2023-12-22 17:20] LABS: Appearance Clear (Clear); Bacteria None Seen /HPF (None Seen); Bilirubin Negative (Negative); Blood Negative (Negative); Epithelial Cells None Seen /HPF (None Seen); Glucose, Urine >=1000 mg/dL (Negative); Hyaline Casts NONE SEEN /LPF (0-2); Ketones 80 (Negative); Leukocyte Esterase Negative (Negative); Nitrite Negative (Negative); Protein,Urine Dip 30 (Negative); RBC 0-2 /HPF (0-5); Specific Gravity 1.025 (1.005-1.030); Urobilinogen 0.2 mg/dL (0.2); WBC 0-2 /HPF (0-5)
[2023-12-22 17:21] LABS: ADD URINE CULTURE? NO (NO)
[2023-12-22] MEDS ORDERED: Zofran 4 MG/2 ML VIAL IV PRN (17:55)
[2023-12-22] MEDS: Sodium Chloride 0.9% 1000 ML 1,000 ML IV SCH (18:03)
[2023-12-22] MEDS: MYXREDLIN 100 UNIT/100 ML BAG 100 UNIT/100 ML PLAST..BAG IV PRN (18:26)
[2023-12-22 18:51] LABS: A-aADO2 24; ABG HEMOGLOBIN 12.7; ABG POTASSIUM 5.2 (3.5-5.1); ABG SITE LEFT RADIAL; ALLEN TEST OK? YES; ARTERIAL BLD GAS O2 SATURATION 97.7 % (95-100); ARTERIAL BLOOD GAS BASE EXCESS -12.5 (-2.0-2.0); ARTERIAL BLOOD GAS FIO2 21 %; ARTERIAL BLOOD GAS PCO2 28 mmHg (35-45); ARTERIAL BLOOD GAS PO2 91 mmHg (75-100); ARTERIAL BLOOD GAS pH 7.27 (7.35-7.45); CARBOXYHEMOGLOBIN 0.7 % THgb (0.0-6.9); HCO3- 12.9 (22-28); HGB O2 SAT 96.6 g/dF (94-100); Methhemoglobin 0.4 % (1.4-1.5); paO2 pAO1 0.79
--- NOTE | 2023-12-22 19:06 | PCM.HP ---
History of Present Illness - Chief Complaint Chief Complaint: DKA Date: 12/22/23 (1800) History of Present Illness: is a 63 year old male with insulin dependent diabetes. He has had DKA in the past. He was feeling fine yesterday. Today he woke up with abdominal pain, nausea and vomiting. Abdominal pain was diffuse lower abdominal pain without provocative or palliative factors. Abdominal pain is resolved now but he remains nauseated. No fever. No cough or sore throat. No chest pain or dyspnea. No diarrhea. No dysuria or hematuria. PMH includes diabetes, seizure disorder, and neuropathy. - Review of Systems Constitutional: Fatigue, No Fever, No Chills Eyes: No Symptoms, No Eye Pain Ears, Nose, & Throat: No Symptoms Respiratory: No Symptoms Cardiac: No Symptoms Abdominal/Gastrointestinal: Abdominal Pain, Nausea, Vomiting, No Diarrhea Genitourinary Symptoms: No Symptoms, No Dysuria, No Frequency Musculoskeletal: No Symptoms Skin: No Symptoms Neurological: No Symptoms Psychological: No Symptoms Endocrine: No Symptoms Hematologic/Lymphatic: No Symptoms Immunological/Allergic: No Symptoms Medications & Allergies Home Medications: Home Medication List Insulin Aspart [NovoLOG Insulin] 1 units SQ UD 05/29/16 [History Confirmed 12/22/23] Insulin Glargine [Lantus Insulin] 35 units SQ QAM 03/25/19 [History Confirmed 12/22/23] Ascorbic Acid 500 mg [Vitamin C 500 MG] 1,000 mg PO DAILY 03/08/23 [History Confirmed 12/22/23] Gabapentin 600 mg PO TID 04/01/23 [History Confirmed 12/22/23] Aspirin EC 81 mg [Ecotrin 81 mg] 81 mg PO DAILY 12/22/23 [History Confirmed 12/22/23] Nitroglycerin 0.4 mg Tablet [Nitrostat 0.4 MG Tablet] 0.4 mg PO UD 12/22/23 [History Confirmed 12/22/23] Allergies/Adverse Reactions: Allergies Allergy/AdvReac Type Severity Reaction Status Date / Time codeine AdvReac Severe Vomiting Verified 12/22/23 14:13 hydrocodone bitartrate AdvReac Severe Vomiting Verified 12/22/23 14:13 [From Vicodin] propoxyphene AdvReac Verified 12/22/23 14:13 [From Darvocet-N 100] - Past Medical History Past Medical History: Yes Neurological History: Seizures ENT History: No Pertinent History Cardiac History: No Pertinent History Respiratory History: No Pertinent History Endocrine Medical History: Diabetes Type II Musculoskelatal History: No Pertinent History GI Medical History: No Pertinent History History: No Pertinent History Pyscho-Social History: No Pertinent History Male Reproductive Disorders: No Pertinent History Comment: FX L LEG AND FOOT subsequent infection. diarrhea x3 weeks, was hospitalized for gi sx. gangrene, sepsis 2014 - Past Surgical History Past Surgical History: Yes Neuro Surgical History: No Pertinent History Cardiac History: No Pertinent History Respiratory Surgery: No Pertinent History GI Surgical History: Cholecystectomy, Hernia Repair Genitourinary Surgical Hx: No Pertinent History Musculskeletal Surgical Hx: Orthopedic Surgery Male Surgical History: No Pertinent History Other Surgical History: right femur fixed at age 15. left foot broke at age 20. left leg and foot surgery ,,I&D of left foot, polyps removed - Social History Smoking Status: Former smoker How long have you smoked: 1 yr Exposure to second hand smoke: Yes Alcohol: None Drug Use: none - Social Determinants of Health Will the patient participate in the screening: Yes Do you worry about a steady place to live?: No Do you have any problems with any of the following?: No known problems In the past 12 months,have you had to go without utilities?: No Have you or anyone in your house had to go without enough: No Transportation Issues: No Has anyone in your support network made you feel unsafe?: No Does the patient want assistance with any of the above?: No - Physical Exam Vital Signs: Vital Signs - 24 hr Temp Pulse Resp BP BP Pulse Ox 12/22/23 18:16 98.2 F 103 H 25 H 152/70 12/22/23 17:00 109 H 20 125/64 96 12/22/23 16:30 111 H 17 115/50 96 12/22/23 16:00 110 H 24 109/51 96 12/22/23 15:30 110 H 21 124/65 98 12/22/23 15:27 113 H 20 123/95 98 12/22/23 15:00 111 H 15 153/78 98 12/22/23 14:31 107 H 19 191/93 97 12/22/23 14:23 97.2 F 100 H 20 146/77 98 12/22/23 14:13 116 H 19 146/77 97 General Appearance: moderate distress Neurologic Exam: alert, oriented x 3, cooperative, music agent II-XII nml as tested Eye Exam: PERRL/EOMI, eyes nml inspection Ears, Nose, Throat Exam: normal ENT inspection Neck Exam: normal inspection, non-tender, supple, full range of motion Respiratory Exam: normal breath sounds Cardiovascular Exam: regular rate/rhythm, normal heart sounds Gastrointestinal/Abdomen Exam: soft, normal bowel sounds Male Genitalia Exam: normal genitalia Back Exam: normal inspection Extremity Exam: normal inspection Skin Exam: normal color Lymphatic Exam: No adenopathy Results - Labs Lab/Micro Results: Lab Results-Last 24 Hours 12/22/23 12/22/23 12/22/23 Range/Units 14:31 14:40 14:40 WBC 16.5 H (4.0-10.5) x10^3/uL RBC 4.55 (4.1-5.6) x10^6/uL Hgb 13.4 (12.5-18.0) g/dL Hct 41.4 L (42-50) % MCV 91.0 (78-100) fL MCH 29.5 (26-32) pg MCHC 32.4 (32-36) g/dL RDW 13.1 (11.5-14.0) % Plt Count 307 (150-450) x10^3/uL MPV 12.0 H (7.5-11.0) fL Gran % 88.6 H (36.0-66.0) % Immature Gran % (Auto) 0.4 (0.00-0.4) % Nucleat RBC Rel Count 0.0 (0.00-0.1) % Eos # (Auto) 0.01 (0-0.5) x10^3/uL Immature Gran # (Auto) 0.07 H (0.00-0.03) x10^3u/L Absolute Lymphs (auto) 1.15 (1.0-4.6) x10^3/uL Absolute Monos (auto) 0.53 (0.0-1.3) x10^3/uL Absolute Nucleated RBC 0.00 (0.00-0.01) x10^3u/L Lymphocytes % 7.0 L (24.0-44.0) % Monocytes % 3.2 (0.0-12.0) % Eosinophils % 0.1 (0.00-5.0) % Basophils % 0.7 (0.0-0.4) % Absolute Granulocytes 14.62 H (1.4-6.9) x10^3/uL Basophils # 0.12 (0-0.4) x10^3/uL Puncture Site pCO2 (35-45) mmHg pO2 (75-100) mmHg Base Excess (-2.0-2.0) O2 Saturation (94-100) g/dF ABG pH (7.35-7.45) ABG HCO3 (22-28) ABG O2 Sat (Measured) (95-100) % Tone Test A-a Gradient a/A Ratio Hemoglobin Carboxyhemoglobin (0.0-6.9) % THgb Methemoglobin (1.4-1.5) % Temperature C POC O2 Flow Rate % Sodium 137 (135-145) mmol/L Potassium 5.8 H (3.5-5.1) mmol/L Chloride 101 (98-107) mmol/L Carbon Dioxide 7 L* (22-30) mmol/L Anion Gap 34.8 H (5-15) MEQ/L BUN 46 H (9-20) mg/dL Creatinine 1.67 H (0.66-1.25) mg/dL Estimated GFR 45.4 ML/MIN Glucose 726 H* (74-106) mg/dL POC Glucometer (74 to 106) mg/dL Lactic Acid 3.4 H (0.4-2.0) Calcium 10.0 (8.4-10.2) mg/dL Total Bilirubin 2.00 H (0.2-1.3) mg/dL AST 23 (17-59) U/L ALT 27 (0-50) U/L Alkaline Phosphatase 105 (38-126) U/L Troponin I (0.000-0.034) ng/mL Serum Total Protein 7.7 (6.3-8.2) g/dL Albumin 4.9 (3.5-5.0) g/dL Amylase 57 (30-110) U/L Lipase 30 (23-300) U/L Urine Color (Yellow) Urine Appearance (Clear) Urine pH (4.6-8.0) Ur Specific [place] (1.005-1.030) Urine Protein (Negative) Urine Glucose (UA) (Negative) mg/dL Urine Ketones (Negative) Urine Blood (Negative) Urine Nitrite (Negative) Urine Bilirubin (Negative) Urine Urobilinogen (0.2) mg/dL Ur Leukocyte Esterase (Negative) U Hyaline Cast (Auto) (0-2) /LPF Urine Microscopic RBC (0-5) /HPF Urine Microscopic WBC (0-5) /HPF Ur Epithelial Cells (None Seen) /HPF Urine Bacteria (None Seen) /HPF Urine Culture Reflexed (NO) Influenza Type A Ag (NEGATIVE) Influenza Type B Ag (NEGATIVE) RSV (PCR) (NEGATIVE) SARS-CoV-2 (PCR) (NEGATIVE) 12/22/23 12/22/23 12/22/23 Range/Units 14:52 15:45 15:56 WBC (4.0-10.5) x10^3/uL RBC (4.1-5.6) x10^6/uL Hgb (12.5-18.0) g/dL Hct (42-50) % MCV (78-100) fL MCH (26-32) pg MCHC (32-36) g/dL RDW (11.5-14.0) % Plt Count (150-450) x10^3/uL MPV (7.5-11.0) fL Gran % (36.0-66.0) % Immature Gran % (Auto) (0.00-0.4) % Nucleat RBC Rel Count (0.00-0.1) % Eos # (Auto) (0-0.5) x10^3/uL Immature Gran # (Auto) (0.00-0.03) x10^3u/L Absolute Lymphs (auto) (1.0-4.6) x10^3/uL Absolute Monos (auto) (0.0-1.3) x10^3/uL Absolute Nucleated RBC (0.00-0.01) x10^3u/L Lymphocytes % (24.0-44.0) % Monocytes % (0.0-12.0) % Eosinophils % (0.00-5.0) % Basophils % (0.0-0.4) % Absolute Granulocytes (1.4-6.9) x10^3/uL Basophils # (0-0.4) x10^3/uL Puncture Site pCO2 (35-45) mmHg pO2 (75-100) mmHg Base Excess (-2.0-2.0) O2 Saturation (94-100) g/dF ABG pH (7.35-7.45) ABG HCO3 (22-28) ABG O2 Sat (Measured) (95-100) % Tone Test A-a Gradient a/A Ratio Hemoglobin Carboxyhemoglobin (0.0-6.9) % THgb Methemoglobin (1.4-1.5) % Temperature C POC O2 Flow Rate % Sodium (135-145) mmol/L Potassium (3.5-5.1) mmol/L Chloride (98-107) mmol/L Carbon Dioxide (22-30) mmol/L Anion Gap (5-15) MEQ/L BUN (9-20) mg/dL Creatinine (0.66-1.25) mg/dL Estimated GFR ML/MIN Glucose (74-106) mg/dL POC Glucometer (74 to 106) mg/dL Lactic Acid (0.4-2.0) Calcium (8.4-10.2) mg/dL Total Bilirubin (0.2-1.3) mg/dL AST (17-59) U/L ALT (0-50) U/L Alkaline Phosphatase (38-126) U/L Troponin I < 0.012 (0.000-0.034) ng/mL Serum Total Protein (6.3-8.2) g/dL Albumin (3.5-5.0) g/dL Amylase (30-110) U/L Lipase (23-300) U/L Urine Color Yellow (Yellow) Urine Appearance Clear (Clear) Urine pH 5.0 (4.6-8.0) Ur Specific [place] 1.025 (1.005-1.030) Urine Protein 30 (Negative) Urine Glucose (UA) >=1000 A (Negative) mg/dL Urine Ketones 80 A (Negative) Urine Blood Negative (Negative) Urine Nitrite Negative (Negative) Urine Bilirubin Negative (Negative) Urine Urobilinogen 0.2 (0.2) mg/dL Ur Leukocyte Esterase Negative (Negative) U Hyaline Cast (Auto) NONE SEEN (0-2) /LPF Urine Microscopic RBC 0-2 (0-5) /HPF Urine Microscopic WBC 0-2 (0-5) /HPF Ur Epithelial Cells None Seen (None Seen) /HPF Urine Bacteria None Seen (None Seen) /HPF Urine Culture Reflexed NO (NO) Influenza Type A Ag NEGATIVE (NEGATIVE) Influenza Type B Ag NEGATIVE (NEGATIVE) RSV (PCR) NEGATIVE (NEGATIVE) SARS-CoV-2 (PCR) NEGATIVE (NEGATIVE) 12/22/23 12/22/23 12/22/23 Range/Units 16:45 17:07 18:03 WBC (4.0-10.5) x10^3/uL RBC (4.1-5.6) x10^6/uL Hgb (12.5-18.0) g/dL Hct (42-50) % MCV (78-100) fL MCH (26-32) pg MCHC (32-36) g/dL RDW (11.5-14.0) % Plt Count (150-450) x10^3/uL MPV (7.5-11.0) fL Gran % (36.0-66.0) % Immature Gran % (Auto) (0.00-0.4) % Nucleat RBC Rel Count (0.00-0.1) % Eos # (Auto) (0-0.5) x10^3/uL Immature Gran # (Auto) (0.00-0.03) x10^3u/L Absolute Lymphs (auto) (1.0-4.6) x10^3/uL Absolute Monos (auto) (0.0-1.3) x10^3/uL Absolute Nucleated RBC (0.00-0.01) x10^3u/L Lymphocytes % (24.0-44.0) % Monocytes % (0.0-12.0) % Eosinophils % (0.00-5.0) % Basophils % (0.0-0.4) % Absolute Granulocytes (1.4-6.9) x10^3/uL Basophils # (0-0.4) x10^3/uL Puncture Site pCO2 (35-45) mmHg pO2 (75-100) mmHg Base Excess (-2.0-2.0) O2 Saturation (94-100) g/dF ABG pH (7.35-7.45) ABG HCO3 (22-28) ABG O2 Sat (Measured) (95-100) % Tone Test A-a Gradient a/A Ratio Hemoglobin Carboxyhemoglobin (0.0-6.9) % THgb Methemoglobin (1.4-1.5) % Temperature C POC O2 Flow Rate % Sodium (135-145) mmol/L Potassium (3.5-5.1) mmol/L Chloride (98-107) mmol/L Carbon Dioxide (22-30) mmol/L Anion Gap (5-15) MEQ/L BUN (9-20) mg/dL Creatinine (0.66-1.25) mg/dL Estimated GFR ML/MIN Glucose (74-106) mg/dL POC Glucometer 460 H 541 H* (74 to 106) mg/dL Lactic Acid 2.0 (0.4-2.0) Calcium (8.4-10.2) mg/dL Total Bilirubin (0.2-1.3) mg/dL AST (17-59) U/L ALT (0-50) U/L Alkaline Phosphatase (38-126) U/L Troponin I (0.000-0.034) ng/mL Serum Total Protein (6.3-8.2) g/dL Albumin (3.5-5.0) g/dL Amylase (30-110) U/L Lipase (23-300) U/L Urine Color (Yellow) Urine Appearance (Clear) Urine pH (4.6-8.0) Ur Specific [place] (1.005-1.030) Urine Protein (Negative) Urine Glucose (UA) (Negative) mg/dL Urine Ketones (Negative) Urine Blood (Negative) Urine Nitrite (Negative) Urine Bilirubin (Negative) Urine Urobilinogen (0.2) mg/dL Ur Leukocyte Esterase (Negative) U Hyaline Cast (Auto) (0-2) /LPF Urine Microscopic RBC (0-5) /HPF Urine Microscopic WBC (0-5) /HPF Ur Epithelial Cells (None Seen) /HPF Urine Bacteria (None Seen) /HPF Urine Culture Reflexed (NO) Influenza Type A Ag (NEGATIVE) Influenza Type B Ag (NEGATIVE) RSV (PCR) (NEGATIVE) SARS-CoV-2 (PCR) (NEGATIVE) 12/22/23 Range/Units 18:40 WBC (4.0-10.5) x10^3/uL RBC (4.1-5.6) x10^6/uL Hgb (12.5-18.0) g/dL Hct (42-50) % MCV (78-100) fL MCH (26-32) pg MCHC (32-36) g/dL RDW (11.5-14.0) % Plt Count (150-450) x10^3/uL MPV (7.5-11.0) fL Gran % (36.0-66.0) % Immature Gran % (Auto) (0.00-0.4) % Nucleat RBC Rel Count (0.00-0.1) % Eos # (Auto) (0-0.5) x10^3/uL Immature Gran # (Auto) (0.00-0.03) x10^3u/L Absolute Lymphs (auto) (1.0-4.6) x10^3/uL Absolute Monos (auto) (0.0-1.3) x10^3/uL Absolute Nucleated RBC (0.00-0.01) x10^3u/L Lymphocytes % (24.0-44.0) % Monocytes % (0.0-12.0) % Eosinophils % (0.00-5.0) % Basophils % (0.0-0.4) % Absolute Granulocytes (1.4-6.9) x10^3/uL Basophils # (0-0.4) x10^3/uL Puncture Site LEFT RADIAL pCO2 28 L (35-45) mmHg pO2 91 (75-100) mmHg Base Excess -12.5 L (-2.0-2.0) O2 Saturation 96.6 (94-100) g/dF ABG pH 7.27 L (7.35-7.45) ABG HCO3 12.9 L* (22-28) ABG O2 Sat (Measured) 97.7 (95-100) % Tone Test YES A-a Gradient 24 a/A Ratio 0.79 Hemoglobin 12.7 Carboxyhemoglobin 0.7 (0.0-6.9) % THgb Methemoglobin 0.4 L (1.4-1.5) % Temperature 37.0 C POC O2 Flow Rate 21 % Sodium (135-145) mmol/L Potassium 5.2 H (3.5-5.1) mmol/L Chloride (98-107) mmol/L Carbon Dioxide (22-30) mmol/L Anion Gap (5-15) MEQ/L BUN (9-20) mg/dL Creatinine (0.66-1.25) mg/dL Estimated GFR ML/MIN Glucose (74-106) mg/dL POC Glucometer (74 to 106) mg/dL Lactic Acid (0.4-2.0) Calcium (8.4-10.2) mg/dL Total Bilirubin (0.2-1.3) mg/dL AST (17-59) U/L ALT (0-50) U/L Alkaline Phosphatase (38-126) U/L Troponin I (0.000-0.034) ng/mL Serum Total Protein (6.3-8.2) g/dL Albumin (3.5-5.0) g/dL Amylase (30-110) U/L Lipase (23-300) U/L Urine Color (Yellow) Urine Appearance (Clear) Urine pH (4.6-8.0) Ur Specific [place] (1.005-1.030) Urine Protein (Negative) Urine Glucose (UA) (Negative) mg/dL Urine Ketones (Negative) Urine Blood (Negative) Urine Nitrite (Negative) Urine Bilirubin (Negative) Urine Urobilinogen (0.2) mg/dL Ur Leukocyte Esterase (Negative) U Hyaline Cast (Auto) (0-2) /LPF Urine Microscopic RBC (0-5) /HPF Urine Microscopic WBC (0-5) /HPF Ur Epithelial Cells (None Seen) /HPF Urine Bacteria (None Seen) /HPF Urine Culture Reflexed (NO) Influenza Type A Ag (NEGATIVE) Influenza Type B Ag (NEGATIVE) RSV (PCR) (NEGATIVE) SARS-CoV-2 (PCR) (NEGATIVE) - Radiology Impressions Radiology Exams & Impressions: Radiology Procedures Category Date Time Status ABDOMEN AND PELVIS W/0 CONTRAS [CT] Stat Exams 12/22/23 14:31 Completed Assessment/Plan (1) DKA (diabetic ketoacidoses) Current Visit: Yes Status: Acute Qualifiers: Diabetes mellitus type: drug or chemical induced Diabetes mellitus complication detail: without coma Qualified Code(s): 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 Assessment & Plan: Patient admitted with abdominal pain, nausea and vomiting. BS was 726. Severe acidosis with CO2=7 Hyperkalemia K=5.8 20 units insulin given in ER Another 10units given now Begin Insulin IV 0.1 unit/Kg/Hr IV NS at 100/hr Check BMP, MG and Phos q 4 hr Replace electrolytes as needed DKA protocol Code(s): E11.10 - TYPE 2 DIABETES MELLITUS WITH KETOACIDOSIS WITHOUT COMA (2) Seizure disorder Current Visit: Yes Status: Chronic Assessment & Plan: On no meds for this Code(s): G40.909 - EPILEPSY, UNSP, NOT INTRACTABLE, WITHOUT STATUS EPILEPTICUS (3) Peripheral neuropathy Current Visit: Yes Status: Chronic Assessment & Plan: Continue Gabapentin when taking diet Code(s): G62.9 - POLYNEUROPATHY, UNSPECIFIED (4) Hyperkalemia Current Visit: Yes Status: Chronic Assessment & Plan: Recheck K. Will likely need replacement later. Code(s): E87.5 - HYPERKALEMIA Telemedicine Encounter - Telemedicine Encounter Telemedicine Encounter: The entirety of this encounter was performed via Telemedicine" after consent obtained Discussed with ER provider. Labs and imaging reviewed Complex medical decision making 70 minutes spent on care of this patient Jordan Munoz MD [email or web address]
[2023-12-22 19:23] LABS: Hematocrit 38.8 % (42-50); Hemoglobin 12.6 g/dL (12.5-18.0); Mean Cell Volume 91.5 fL (78-100); Mean Corpuscular Hemoglobin 29.7 pg (26-32); Mean Corpuscular Hgb Concent. 32.5 g/dL (32-36); Mean Platelet Volume 11.3 fL (7.5-11.0); Platelet Count 258 x10^3/uL (150-450); Red Blood Count 4.24 x10^6/uL (4.1-5.6); Red Cell Distribution Width 13.2 % (11.5-14.0); White Blood Count 16.8 x10^3/uL (4.0-10.5)
[2023-12-22 19:38] LABS: ALBUMIN 4.5 g/dL (3.5-5.0); BILIRUBIN,TOTAL 1.4 mg/dL (0.2-1.3); Calcium 9.6 mg/dL (8.4-10.2); Creatinine 1 1.77 mg/dL (0.66-1.25); Direct Bilirubin 0.2 mg/dL (0.0-0.4); EST GLOMERULAR FILTRATION RATE 42.4 ML/MIN; MAGNESIUM 2.4 mg/dL (1.6-2.3); PHOSPHOROUS 5.4 mg/dL (2.5-4.5); Potassium 4.9 mmol/L (3.5-5.1); Total Protein 7.3 g/dL (6.3-8.2)
[2023-12-22 23:43] LABS: Hematocrit 35.1 % (42-50); Hemoglobin 12.1 g/dL (12.5-18.0); Mean Cell Volume 86.5 fL (78-100); Mean Corpuscular Hemoglobin 29.8 pg (26-32); Mean Corpuscular Hgb Concent. 34.5 g/dL (32-36); Mean Platelet Volume 10.8 fL (7.5-11.0); Platelet Count 292 x10^3/uL (150-450); Red Blood Count 4.06 x10^6/uL (4.1-5.6); Red Cell Distribution Width 13.3 % (11.5-14.0); White Blood Count 15.6 x10^3/uL (4.0-10.5)
[2023-12-23 00:02] LABS: ALBUMIN 4.1 g/dL (3.5-5.0); ANION GAP 17.3 MEQ/L (5-15); BILIRUBIN,TOTAL 1.5 mg/dL (0.2-1.3); Calcium 9.9 mg/dL (8.4-10.2); Creatinine 1 1.67 mg/dL (0.66-1.25); Direct Bilirubin 0.1 mg/dL (0.0-0.4); EST GLOMERULAR FILTRATION RATE 45.4 ML/MIN; MAGNESIUM 2.3 mg/dL (1.6-2.3); PHOSPHOROUS 3.4 mg/dL (2.5-4.5); Potassium 4.5 mmol/L (3.5-5.1); Total Protein 6.7 g/dL (6.3-8.2)
[2023-12-23] MEDS: Dextrose 5% -0.45 NaCl 1000 ML 1,000 ML IV SCH (03:31)
[2023-12-23 05:26] LABS: Hematocrit 34.2 % (42-50); Hemoglobin 11.7 g/dL (12.5-18.0); Mean Cell Volume 87.5 fL (78-100); Mean Corpuscular Hemoglobin 29.9 pg (26-32); Mean Corpuscular Hgb Concent. 34.2 g/dL (32-36); Mean Platelet Volume 10.9 fL (7.5-11.0); Platelet Count 265 x10^3/uL (150-450); Red Blood Count 3.91 x10^6/uL (4.1-5.6); Red Cell Distribution Width 13.5 % (11.5-14.0); White Blood Count 13.9 x10^3/uL (4.0-10.5)
--- NOTE | 2023-12-23 05:35 | PCM.NOTE ---
Date and Time: 12/23/23529 Subjective Assessment: Mr. Bishop is a 63 year old male with a pmhx of DMII and seizure (as a child with no further incidence) who presented to ED 12/22/23 with complaints of abdominal pain, nausea, and vomiting. CT of abdomen and pelvis w/o contrast demonstrates fecal stasis and a markedly distended bladder otherwise unremarka ble. In the ED lab findings remarkable for leukocytosis with WBC at 16.5, potassium at 5.8, GAP acidosis with carbon dioxide at 7 and GAP at 34.8, SYED with BUN at 46 and creat at 1.67, glucose at 726, lactic acid at 3.4, total bili at 2.00, urine glucose >1000, and urine ketones at 80. Patient admitted for DKA. Gap closed overnight, diet initiated as well as subq insulin regimen. Will monitor and adjust insulin regimen as needed. OBJECTIVE DATA Vital Signs: Vital Signs - 24 hr Temp Pulse Resp BP BP Pulse Ox 12/23/23 04:31 95 H 159/80 12/23/23 04:26 97.8 F 91 H 1 L 158/63 12/23/23 04:22 92 H 12/23/23 01:04 91 H 14 131/80 12/23/23 00:34 94 H 12/22/23 22:03 98.0 F 103 H 17 133/77 12/22/23 20:00 98 H 12/22/23 18:16 98.2 F 103 H 25 H 152/70 12/22/23 18:10 100 H 23 152/70 12/22/23 17:30 139/73 12/22/23 17:00 109 H 20 125/64 96 12/22/23 16:30 111 H 17 115/50 96 12/22/23 16:00 110 H 24 109/51 96 12/22/23 15:30 110 H 21 124/65 98 12/22/23 15:27 113 H 20 123/95 98 12/22/23 15:00 111 H 15 153/78 98 12/22/23 14:31 107 H 19 191/93 97 12/22/23 14:23 97.2 F 100 H 20 146/77 98 12/22/23 14:13 116 H 19 146/77 97 Pain Assessment - Last Documented Pain Intensity 0 Intake and Output: Intake & Output 12/20/23 12/21/23 12/22/23 12/23/23 11:59 11:59 11:59 11:59 Intake Total 0 Output Total 925 Balance -925 Weight 77.7 kg Lab Results: Lab Results-Last 24 Hours 12/22/23 12/22/23 12/22/23 Range/Units 14:31 14:40 14:40 WBC 16.5 H (4.0-10.5) x10^3/uL RBC 4.55 (4.1-5.6) x10^6/uL Hgb 13.4 (12.5-18.0) g/dL Hct 41.4 L (42-50) % MCV 91.0 (78-100) fL MCH 29.5 (26-32) pg MCHC 32.4 (32-36) g/dL RDW 13.1 (11.5-14.0) % Plt Count 307 (150-450) x10^3/uL MPV 12.0 H (7.5-11.0) fL Gran % 88.6 H (36.0-66.0) % Immature Gran % (Auto) 0.4 (0.00-0.4) % Nucleat RBC Rel Count 0.0 (0.00-0.1) % Eos # (Auto) 0.01 (0-0.5) x10^3/uL Immature Gran # (Auto) 0.07 H (0.00-0.03) x10^3u/L Absolute Lymphs (auto) 1.15 (1.0-4.6) x10^3/uL Absolute Monos (auto) 0.53 (0.0-1.3) x10^3/uL Absolute Nucleated RBC 0.00 (0.00-0.01) x10^3u/L Lymphocytes % 7.0 L (24.0-44.0) % Monocytes % 3.2 (0.0-12.0) % Eosinophils % 0.1 (0.00-5.0) % Basophils % 0.7 (0.0-0.4) % Absolute Granulocytes 14.62 H (1.4-6.9) x10^3/uL Basophils # 0.12 (0-0.4) x10^3/uL Puncture Site pCO2 (35-45) mmHg pO2 (75-100) mmHg Base Excess (-2.0-2.0) O2 Saturation (94-100) g/dF ABG pH (7.35-7.45) ABG HCO3 (22-28) ABG O2 Sat (Measured) (95-100) % Tone Test A-a Gradient a/A Ratio Hemoglobin Carboxyhemoglobin (0.0-6.9) % THgb Methemoglobin (1.4-1.5) % Temperature C POC O2 Flow Rate % Sodium 137 (135-145) mmol/L Potassium 5.8 H (3.5-5.1) mmol/L Chloride 101 (98-107) mmol/L Carbon Dioxide 7 L* (22-30) mmol/L Anion Gap 34.8 H (5-15) MEQ/L BUN 46 H (9-20) mg/dL Creatinine 1.67 H (0.66-1.25) mg/dL Estimated GFR 45.4 ML/MIN Glucose 726 H* (74-106) mg/dL POC Glucometer (74 to 106) mg/dL Lactic Acid 3.4 H (0.4-2.0) Calcium 10.0 (8.4-10.2) mg/dL Phosphorus (2.5-4.5) mg/dL Magnesium (1.6-2.3) mg/dL Total Bilirubin 2.00 H (0.2-1.3) mg/dL Direct Bilirubin (0.0-0.4) mg/dL AST 23 (17-59) U/L ALT 27 (0-50) U/L Alkaline Phosphatase 105 (38-126) U/L Troponin I (0.000-0.034) ng/mL Serum Total Protein 7.7 (6.3-8.2) g/dL Albumin 4.9 (3.5-5.0) g/dL Amylase 57 (30-110) U/L Lipase 30 (23-300) U/L Urine Color (Yellow) Urine Appearance (Clear) Urine pH (4.6-8.0) Ur Specific [place] (1.005-1.030) Urine Protein (Negative) Urine Glucose (UA) (Negative) mg/dL Urine Ketones (Negative) Urine Blood (Negative) Urine Nitrite (Negative) Urine Bilirubin (Negative) Urine Urobilinogen (0.2) mg/dL Ur Leukocyte Esterase (Negative) U Hyaline Cast (Auto) (0-2) /LPF Urine Microscopic RBC (0-5) /HPF Urine Microscopic WBC (0-5) /HPF Ur Epithelial Cells (None Seen) /HPF Urine Bacteria (None Seen) /HPF Urine Culture Reflexed (NO) Influenza Type A Ag (NEGATIVE) Influenza Type B Ag (NEGATIVE) RSV (PCR) (NEGATIVE) SARS-CoV-2 (PCR) (NEGATIVE) 12/22/23 12/22/23 12/22/23 Range/Units 14:52 15:45 15:56 WBC (4.0-10.5) x10^3/uL RBC (4.1-5.6) x10^6/uL Hgb (12.5-18.0) g/dL Hct (42-50) % MCV (78-100) fL MCH (26-32) pg MCHC (32-36) g/dL RDW (11.5-14.0) % Plt Count (150-450) x10^3/uL MPV (7.5-11.0) fL Gran % (36.0-66.0) % Immature Gran % (Auto) (0.00-0.4) % Nucleat RBC Rel Count (0.00-0.1) % Eos # (Auto) (0-0.5) x10^3/uL Immature Gran # (Auto) (0.00-0.03) x10^3u/L Absolute Lymphs (auto) (1.0-4.6) x10^3/uL Absolute Monos (auto) (0.0-1.3) x10^3/uL Absolute Nucleated RBC (0.00-0.01) x10^3u/L Lymphocytes % (24.0-44.0) % Monocytes % (0.0-12.0) % Eosinophils % (0.00-5.0) % Basophils % (0.0-0.4) % Absolute Granulocytes (1.4-6.9) x10^3/uL Basophils # (0-0.4) x10^3/uL Puncture Site pCO2 (35-45) mmHg pO2 (75-100) mmHg Base Excess (-2.0-2.0) O2 Saturation (94-100) g/dF ABG pH (7.35-7.45) ABG HCO3 (22-28) ABG O2 Sat (Measured) (95-100) % Tone Test A-a Gradient a/A Ratio Hemoglobin Carboxyhemoglobin (0.0-6.9) % THgb Methemoglobin (1.4-1.5) % Temperature C POC O2 Flow Rate % Sodium (135-145) mmol/L Potassium (3.5-5.1) mmol/L Chloride (98-107) mmol/L Carbon Dioxide (22-30) mmol/L Anion Gap (5-15) MEQ/L BUN (9-20) mg/dL Creatinine (0.66-1.25) mg/dL Estimated GFR ML/MIN Glucose (74-106) mg/dL POC Glucometer (74 to 106) mg/dL Lactic Acid (0.4-2.0) Calcium (8.4-10.2) mg/dL Phosphorus (2.5-4.5) mg/dL Magnesium (1.6-2.3) mg/dL Total Bilirubin (0.2-1.3) mg/dL Direct Bilirubin (0.0-0.4) mg/dL AST (17-59) U/L ALT (0-50) U/L Alkaline Phosphatase (38-126) U/L Troponin I < 0.012 (0.000-0.034) ng/mL Serum Total Protein (6.3-8.2) g/dL Albumin (3.5-5.0) g/dL Amylase (30-110) U/L Lipase (23-300) U/L Urine Color Yellow (Yellow) Urine Appearance Clear (Clear) Urine pH 5.0 (4.6-8.0) Ur Specific [place] 1.025 (1.005-1.030) Urine Protein 30 (Negative) Urine Glucose (UA) >=1000 A (Negative) mg/dL Urine Ketones 80 A (Negative) Urine Blood Negative (Negative) Urine Nitrite Negative (Negative) Urine Bilirubin Negative (Negative) Urine Urobilinogen 0.2 (0.2) mg/dL Ur Leukocyte Esterase Negative (Negative) U Hyaline Cast (Auto) NONE SEEN (0-2) /LPF Urine Microscopic RBC 0-2 (0-5) /HPF Urine Microscopic WBC 0-2 (0-5) /HPF Ur Epithelial Cells None Seen (None Seen) /HPF Urine Bacteria None Seen (None Seen) /HPF Urine Culture Reflexed NO (NO) Influenza Type A Ag NEGATIVE (NEGATIVE) Influenza Type B Ag NEGATIVE (NEGATIVE) RSV (PCR) NEGATIVE (NEGATIVE) SARS-CoV-2 (PCR) NEGATIVE (NEGATIVE) 12/22/23 12/22/23 12/22/23 Range/Units 16:45 17:07 18:03 WBC (4.0-10.5) x10^3/uL RBC (4.1-5.6) x10^6/uL Hgb (12.5-18.0) g/dL Hct (42-50) % MCV (78-100) fL MCH (26-32) pg MCHC (32-36) g/dL RDW (11.5-14.0) % Plt Count (150-450) x10^3/uL MPV (7.5-11.0) fL Gran % (36.0-66.0) % Immature Gran % (Auto) (0.00-0.4) % Nucleat RBC Rel Count (0.00-0.1) % Eos # (Auto) (0-0.5) x10^3/uL Immature Gran # (Auto) (0.00-0.03) x10^3u/L Absolute Lymphs (auto) (1.0-4.6) x10^3/uL Absolute Monos (auto) (0.0-1.3) x10^3/uL Absolute Nucleated RBC (0.00-0.01) x10^3u/L Lymphocytes % (24.0-44.0) % Monocytes % (0.0-12.0) % Eosinophils % (0.00-5.0) % Basophils % (0.0-0.4) % Absolute Granulocytes (1.4-6.9) x10^3/uL Basophils # (0-0.4) x10^3/uL Puncture Site pCO2 (35-45) mmHg pO2 (75-100) mmHg Base Excess (-2.0-2.0) O2 Saturation (94-100) g/dF ABG pH (7.35-7.45) ABG HCO3 (22-28) ABG O2 Sat (Measured) (95-100) % Tone Test A-a Gradient a/A Ratio Hemoglobin Carboxyhemoglobin (0.0-6.9) % THgb Methemoglobin (1.4-1.5) % Temperature C POC O2 Flow Rate % Sodium (135-145) mmol/L Potassium (3.5-5.1) mmol/L Chloride (98-107) mmol/L Carbon Dioxide (22-30) mmol/L Anion Gap (5-15) MEQ/L BUN (9-20) mg/dL Creatinine (0.66-1.25) mg/dL Estimated GFR ML/MIN Glucose (74-106) mg/dL POC Glucometer 460 H 541 H* (74 to 106) mg/dL Lactic Acid 2.0 (0.4-2.0) Calcium (8.4-10.2) mg/dL Phosphorus (2.5-4.5) mg/dL Magnesium (1.6-2.3) mg/dL Total Bilirubin (0.2-1.3) mg/dL Direct Bilirubin (0.0-0.4) mg/dL AST (17-59) U/L ALT (0-50) U/L Alkaline Phosphatase (38-126) U/L Troponin I (0.000-0.034) ng/mL Serum Total Protein (6.3-8.2) g/dL Albumin (3.5-5.0) g/dL Amylase (30-110) U/L Lipase (23-300) U/L Urine Color (Yellow) Urine Appearance (Clear) Urine pH (4.6-8.0) Ur Specific [place] (1.005-1.030) Urine Protein (Negative) Urine Glucose (UA) (Negative) mg/dL Urine Ketones (Negative) Urine Blood (Negative) Urine Nitrite (Negative) Urine Bilirubin (Negative) Urine Urobilinogen (0.2) mg/dL Ur Leukocyte Esterase (Negative) U Hyaline Cast (Auto) (0-2) /LPF Urine Microscopic RBC (0-5) /HPF Urine Microscopic WBC (0-5) /HPF Ur Epithelial Cells (None Seen) /HPF Urine Bacteria (None Seen) /HPF Urine Culture Reflexed (NO) Influenza Type A Ag (NEGATIVE) Influenza Type B Ag (NEGATIVE) RSV (PCR) (NEGATIVE) SARS-CoV-2 (PCR) (NEGATIVE) 12/22/23 12/22/23 12/22/23 Range/Units 18:40 19:20 19:20 WBC 16.8 H (4.0-10.5) x10^3/uL RBC 4.24 (4.1-5.6) x10^6/uL Hgb 12.6 (12.5-18.0) g/dL Hct 38.8 L (42-50) % MCV 91.5 (78-100) fL MCH 29.7 (26-32) pg MCHC 32.5 (32-36) g/dL RDW 13.2 (11.5-14.0) % Plt Count 258 (150-450) x10^3/uL MPV 11.3 H (7.5-11.0) fL Gran % (36.0-66.0) % Immature Gran % (Auto) (0.00-0.4) % Nucleat RBC Rel Count (0.00-0.1) % Eos # (Auto) (0-0.5) x10^3/uL Immature Gran # (Auto) (0.00-0.03) x10^3u/L Absolute Lymphs (auto) (1.0-4.6) x10^3/uL Absolute Monos (auto) (0.0-1.3) x10^3/uL Absolute Nucleated RBC (0.00-0.01) x10^3u/L Lymphocytes % (24.0-44.0) % Monocytes % (0.0-12.0) % Eosinophils % (0.00-5.0) % Basophils % (0.0-0.4) % Absolute Granulocytes (1.4-6.9) x10^3/uL Basophils # (0-0.4) x10^3/uL Puncture Site LEFT RADIAL pCO2 28 L (35-45) mmHg pO2 91 (75-100) mmHg Base Excess -12.5 L (-2.0-2.0) O2 Saturation 96.6 (94-100) g/dF ABG pH 7.27 L (7.35-7.45) ABG HCO3 12.9 L* (22-28) ABG O2 Sat (Measured) 97.7 (95-100) % Tone Test YES A-a Gradient 24 a/A Ratio 0.79 Hemoglobin 12.7 Carboxyhemoglobin 0.7 (0.0-6.9) % THgb Methemoglobin 0.4 L (1.4-1.5) % Temperature 37.0 C POC O2 Flow Rate 21 % Sodium (135-145) mmol/L Potassium 5.2 H (3.5-5.1) mmol/L Chloride (98-107) mmol/L Carbon Dioxide (22-30) mmol/L Anion Gap (5-15) MEQ/L BUN (9-20) mg/dL Creatinine (0.66-1.25) mg/dL Estimated GFR ML/MIN Glucose (74-106) mg/dL POC Glucometer (74 to 106) mg/dL Lactic Acid (0.4-2.0) Calcium (8.4-10.2) mg/dL Phosphorus (2.5-4.5) mg/dL Magnesium (1.6-2.3) mg/dL Total Bilirubin (0.2-1.3) mg/dL Direct Bilirubin (0.0-0.4) mg/dL AST (17-59) U/L ALT (0-50) U/L Alkaline Phosphatase (38-126) U/L Troponin I 0.013 (0.000-0.034) ng/mL Serum Total Protein (6.3-8.2) g/dL Albumin (3.5-5.0) g/dL Amylase (30-110) U/L Lipase (23-300) U/L Urine Color (Yellow) Urine Appearance (Clear) Urine pH (4.6-8.0) Ur Specific [place] (1.005-1.030) Urine Protein (Negative) Urine Glucose (UA) (Negative) mg/dL Urine Ketones (Negative) Urine Blood (Negative) Urine Nitrite (Negative) Urine Bilirubin (Negative) Urine Urobilinogen (0.2) mg/dL Ur Leukocyte Esterase (Negative) U Hyaline Cast (Auto) (0-2) /LPF Urine Microscopic RBC (0-5) /HPF Urine Microscopic WBC (0-5) /HPF Ur Epithelial Cells (None Seen) /HPF Urine Bacteria (None Seen) /HPF Urine Culture Reflexed (NO) Influenza Type A Ag (NEGATIVE) Influenza Type B Ag (NEGATIVE) RSV (PCR) (NEGATIVE) SARS-CoV-2 (PCR) (NEGATIVE) 12/22/23 12/22/23 12/22/23 Range/Units 19:20 20:19 21:21 WBC (4.0-10.5) x10^3/uL RBC (4.1-5.6) x10^6/uL Hgb (12.5-18.0) g/dL Hct (42-50) % MCV (78-100) fL MCH (26-32) pg MCHC (32-36) g/dL RDW (11.5-14.0) % Plt Count (150-450) x10^3/uL MPV (7.5-11.0) fL Gran % (36.0-66.0) % Immature Gran % (Auto) (0.00-0.4) % Nucleat RBC Rel Count (0.00-0.1) % Eos # (Auto) (0-0.5) x10^3/uL Immature Gran # (Auto) (0.00-0.03) x10^3u/L Absolute Lymphs (auto) (1.0-4.6) x10^3/uL Absolute Monos (auto) (0.0-1.3) x10^3/uL Absolute Nucleated RBC (0.00-0.01) x10^3u/L Lymphocytes % (24.0-44.0) % Monocytes % (0.0-12.0) % Eosinophils % (0.00-5.0) % Basophils % (0.0-0.4) % Absolute Granulocytes (1.4-6.9) x10^3/uL Basophils # (0-0.4) x10^3/uL Puncture Site pCO2 (35-45) mmHg pO2 (75-100) mmHg Base Excess (-2.0-2.0) O2 Saturation (94-100) g/dF ABG pH (7.35-7.45) ABG HCO3 (22-28) ABG O2 Sat (Measured) (95-100) % Tone Test A-a Gradient a/A Ratio Hemoglobin Carboxyhemoglobin (0.0-6.9) % THgb Methemoglobin (1.4-1.5) % Temperature C POC O2 Flow Rate % Sodium 142 (135-145) mmol/L Potassium 4.9 (3.5-5.1) mmol/L Chloride 108 H (98-107) mmol/L Carbon Dioxide 10 L* (22-30) mmol/L Anion Gap 31.0 H (5-15) MEQ/L BUN 46 H (9-20) mg/dL Creatinine 1.77 H (0.66-1.25) mg/dL Estimated GFR 42.4 ML/MIN Glucose 542 H* (74-106) mg/dL POC Glucometer 412 H 347 H (74 to 106) mg/dL Lactic Acid (0.4-2.0) Calcium 9.6 (8.4-10.2) mg/dL Phosphorus 5.4 H (2.5-4.5) mg/dL Magnesium 2.4 H (1.6-2.3) mg/dL Total Bilirubin 1.40 H (0.2-1.3) mg/dL Direct Bilirubin 0.2 (0.0-0.4) mg/dL AST 18 (17-59) U/L ALT 25 (0-50) U/L Alkaline Phosphatase 90 (38-126) U/L Troponin I (0.000-0.034) ng/mL Serum Total Protein 7.3 (6.3-8.2) g/dL Albumin 4.5 (3.5-5.0) g/dL Amylase (30-110) U/L Lipase (23-300) U/L Urine Color (Yellow) Urine Appearance (Clear) Urine pH (4.6-8.0) Ur Specific [place] (1.005-1.030) Urine Protein (Negative) Urine Glucose (UA) (Negative) mg/dL Urine Ketones (Negative) Urine Blood (Negative) Urine Nitrite (Negative) Urine Bilirubin (Negative) Urine Urobilinogen (0.2) mg/dL Ur Leukocyte Esterase (Negative) U Hyaline Cast (Auto) (0-2) /LPF Urine Microscopic RBC (0-5) /HPF Urine Microscopic WBC (0-5) /HPF Ur Epithelial Cells (None Seen) /HPF Urine Bacteria (None Seen) /HPF Urine Culture Reflexed (NO) Influenza Type A Ag (NEGATIVE) Influenza Type B Ag (NEGATIVE) RSV (PCR) (NEGATIVE) SARS-CoV-2 (PCR) (NEGATIVE) 12/22/23 12/22/23 12/22/23 Range/Units 22:23 23:20 23:38 WBC (4.0-10.5) x10^3/uL RBC (4.1-5.6) x10^6/uL Hgb (12.5-18.0) g/dL Hct (42-50) % MCV (78-100) fL MCH (26-32) pg MCHC (32-36) g/dL RDW (11.5-14.0) % Plt Count (150-450) x10^3/uL MPV (7.5-11.0) fL Gran % (36.0-66.0) % Immature Gran % (Auto) (0.00-0.4) % Nucleat RBC Rel Count (0.00-0.1) % Eos # (Auto) (0-0.5) x10^3/uL Immature Gran # (Auto) (0.00-0.03) x10^3u/L Absolute Lymphs (auto) (1.0-4.6) x10^3/uL Absolute Monos (auto) (0.0-1.3) x10^3/uL Absolute Nucleated RBC (0.00-0.01) x10^3u/L Lymphocytes % (24.0-44.0) % Monocytes % (0.0-12.0) % Eosinophils % (0.00-5.0) % Basophils % (0.0-0.4) % Absolute Granulocytes (1.4-6.9) x10^3/uL Basophils # (0-0.4) x10^3/uL Puncture Site pCO2 (35-45) mmHg pO2 (75-100) mmHg Base Excess (-2.0-2.0) O2 Saturation (94-100) g/dF ABG pH (7.35-7.45) ABG HCO3 (22-28) ABG O2 Sat (Measured) (95-100) % Tone Test A-a Gradient a/A Ratio Hemoglobin Carboxyhemoglobin (0.0-6.9) % THgb Methemoglobin (1.4-1.5) % Temperature C POC O2 Flow Rate % Sodium (135-145) mmol/L Potassium (3.5-5.1) mmol/L Chloride (98-107) mmol/L Carbon Dioxide (22-30) mmol/L Anion Gap (5-15) MEQ/L BUN (9-20) mg/dL Creatinine (0.66-1.25) mg/dL Estimated GFR ML/MIN Glucose (74-106) mg/dL POC Glucometer 304 H 246 H (74 to 106) mg/dL Lactic Acid (0.4-2.0) Calcium (8.4-10.2) mg/dL Phosphorus (2.5-4.5) mg/dL Magnesium (1.6-2.3) mg/dL Total Bilirubin (0.2-1.3) mg/dL Direct Bilirubin (0.0-0.4) mg/dL AST (17-59) U/L ALT (0-50) U/L Alkaline Phosphatase (38-126) U/L Troponin I 0.039 H* (0.000-0.034) ng/mL Serum Total Protein (6.3-8.2) g/dL Albumin (3.5-5.0) g/dL Amylase (30-110) U/L Lipase (23-300) U/L Urine Color (Yellow) Urine Appearance (Clear) Urine pH (4.6-8.0) Ur Specific [place] (1.005-1.030) Urine Protein (Negative) Urine Glucose (UA) (Negative) mg/dL Urine Ketones (Negative) Urine Blood (Negative) Urine Nitrite (Negative) Urine Bilirubin (Negative) Urine Urobilinogen (0.2) mg/dL Ur Leukocyte Esterase (Negative) U Hyaline Cast (Auto) (0-2) /LPF Urine Microscopic RBC (0-5) /HPF Urine Microscopic WBC (0-5) /HPF Ur Epithelial Cells (None Seen) /HPF Urine Bacteria (None Seen) /HPF Urine Culture Reflexed (NO) Influenza Type A Ag (NEGATIVE) Influenza Type B Ag (NEGATIVE) RSV (PCR) (NEGATIVE) SARS-CoV-2 (PCR) (NEGATIVE) 12/22/23 12/22/23 12/23/23 Range/Units 23:38 23:40 00:20 WBC 15.6 H (4.0-10.5) x10^3/uL RBC 4.06 L (4.1-5.6) x10^6/uL Hgb 12.1 L (12.5-18.0) g/dL Hct 35.1 L (42-50) % MCV 86.5 (78-100) fL MCH 29.8 (26-32) pg MCHC 34.5 (32-36) g/dL RDW 13.3 (11.5-14.0) % Plt Count 292 (150-450) x10^3/uL MPV 10.8 (7.5-11.0) fL Gran % (36.0-66.0) % Immature Gran % (Auto) (0.00-0.4) % Nucleat RBC Rel Count (0.00-0.1) % Eos # (Auto) (0-0.5) x10^3/uL Immature Gran # (Auto) (0.00-0.03) x10^3u/L Absolute Lymphs (auto) (1.0-4.6) x10^3/uL Absolute Monos (auto) (0.0-1.3) x10^3/uL Absolute Nucleated RBC (0.00-0.01) x10^3u/L Lymphocytes % (24.0-44.0) % Monocytes % (0.0-12.0) % Eosinophils % (0.00-5.0) % Basophils % (0.0-0.4) % Absolute Granulocytes (1.4-6.9) x10^3/uL Basophils # (0-0.4) x10^3/uL Puncture Site pCO2 (35-45) mmHg pO2 (75-100) mmHg Base Excess (-2.0-2.0) O2 Saturation (94-100) g/dF ABG pH (7.35-7.45) ABG HCO3 (22-28) ABG O2 Sat (Measured) (95-100) % Tone Test A-a Gradient a/A Ratio Hemoglobin Carboxyhemoglobin (0.0-6.9) % THgb Methemoglobin (1.4-1.5) % Temperature C POC O2 Flow Rate % Sodium 146 H (135-145) mmol/L Potassium 4.5 (3.5-5.1) mmol/L Chloride 115 H (98-107) mmol/L Carbon Dioxide 18 L (22-30) mmol/L Anion Gap 17.3 H (5-15) MEQ/L BUN 48 H (9-20) mg/dL Creatinine 1.67 H (0.66-1.25) mg/dL Estimated GFR 45.4 ML/MIN Glucose 241 H (74-106) mg/dL POC Glucometer 164 H (74 to 106) mg/dL Lactic Acid (0.4-2.0) Calcium 9.9 (8.4-10.2) mg/dL Phosphorus 3.4 (2.5-4.5) mg/dL Magnesium 2.3 (1.6-2.3) mg/dL Total Bilirubin 1.50 H (0.2-1.3) mg/dL Direct Bilirubin 0.1 (0.0-0.4) mg/dL AST 17 (17-59) U/L ALT 23 (0-50) U/L Alkaline Phosphatase 82 (38-126) U/L Troponin I (0.000-0.034) ng/mL Serum Total Protein 6.7 (6.3-8.2) g/dL Albumin 4.1 (3.5-5.0) g/dL Amylase (30-110) U/L Lipase (23-300) U/L Urine Color (Yellow) Urine Appearance (Clear) Urine pH (4.6-8.0) Ur Specific [place] (1.005-1.030) Urine Protein (Negative) Urine Glucose (UA) (Negative) mg/dL Urine Ketones (Negative) Urine Blood (Negative) Urine Nitrite (Negative) Urine Bilirubin (Negative) Urine Urobilinogen (0.2) mg/dL Ur Leukocyte Esterase (Negative) U Hyaline Cast (Auto) (0-2) /LPF Urine Microscopic RBC (0-5) /HPF Urine Microscopic WBC (0-5) /HPF Ur Epithelial Cells (None Seen) /HPF Urine Bacteria (None Seen) /HPF Urine Culture Reflexed (NO) Influenza Type A Ag (NEGATIVE) Influenza Type B Ag (NEGATIVE) RSV (PCR) (NEGATIVE) SARS-CoV-2 (PCR) (NEGATIVE) 12/23/23 12/23/23 12/23/23 Range/Units 01:02 02:14 03:13 WBC (4.0-10.5) x10^3/uL RBC (4.1-5.6) x10^6/uL Hgb (12.5-18.0) g/dL Hct (42-50) % MCV (78-100) fL MCH (26-32) pg MCHC (32-36) g/dL RDW (11.5-14.0) % Plt Count (150-450) x10^3/uL MPV (7.5-11.0) fL Gran % (36.0-66.0) % Immature Gran % (Auto) (0.00-0.4) % Nucleat RBC Rel Count (0.00-0.1) % Eos # (Auto) (0-0.5) x10^3/uL Immature Gran # (Auto) (0.00-0.03) x10^3u/L Absolute Lymphs (auto) (1.0-4.6) x10^3/uL Absolute Monos (auto) (0.0-1.3) x10^3/uL Absolute Nucleated RBC (0.00-0.01) x10^3u/L Lymphocytes % (24.0-44.0) % Monocytes % (0.0-12.0) % Eosinophils % (0.00-5.0) % Basophils % (0.0-0.4) % Absolute Granulocytes (1.4-6.9) x10^3/uL Basophils # (0-0.4) x10^3/uL Puncture Site pCO2 (35-45) mmHg pO2 (75-100) mmHg Base Excess (-2.0-2.0) O2 Saturation (94-100) g/dF ABG pH (7.35-7.45) ABG HCO3 (22-28) ABG O2 Sat (Measured) (95-100) % Tone Test A-a Gradient a/A Ratio Hemoglobin Carboxyhemoglobin (0.0-6.9) % THgb Methemoglobin (1.4-1.5) % Temperature C POC O2 Flow Rate % Sodium (135-145) mmol/L Potassium (3.5-5.1) mmol/L Chloride (98-107) mmol/L Carbon Dioxide (22-30) mmol/L Anion Gap (5-15) MEQ/L BUN (9-20) mg/dL Creatinine (0.66-1.25) mg/dL Estimated GFR ML/MIN Glucose (74-106) mg/dL POC Glucometer 201 H 143 H 95 (74 to 106) mg/dL Lactic Acid (0.4-2.0) Calcium (8.4-10.2) mg/dL Phosphorus (2.5-4.5) mg/dL Magnesium (1.6-2.3) mg/dL Total Bilirubin (0.2-1.3) mg/dL Direct Bilirubin (0.0-0.4) mg/dL AST (17-59) U/L ALT (0-50) U/L Alkaline Phosphatase (38-126) U/L Troponin I (0.000-0.034) ng/mL Serum Total Protein (6.3-8.2) g/dL Albumin (3.5-5.0) g/dL Amylase (30-110) U/L Lipase (23-300) U/L Urine Color (Yellow) Urine Appearance (Clear) Urine pH (4.6-8.0) Ur Specific [place] (1.005-1.030) Urine Protein (Negative) Urine Glucose (UA) (Negative) mg/dL Urine Ketones (Negative) Urine Blood (Negative) Urine Nitrite (Negative) Urine Bilirubin (Negative) Urine Urobilinogen (0.2) mg/dL Ur Leukocyte Esterase (Negative) U Hyaline Cast (Auto) (0-2) /LPF Urine Microscopic RBC (0-5) /HPF Urine Microscopic WBC (0-5) /HPF Ur Epithelial Cells (None Seen) /HPF Urine Bacteria (None Seen) /HPF Urine Culture Reflexed (NO) Influenza Type A Ag (NEGATIVE) Influenza Type B Ag (NEGATIVE) RSV (PCR) (NEGATIVE) SARS-CoV-2 (PCR) (NEGATIVE) 12/23/23 12/23/23 12/23/23 Range/Units 04:17 05:11 05:24 WBC 13.9 H (4.0-10.5) x10^3/uL RBC 3.91 L (4.1-5.6) x10^6/uL Hgb 11.7 L (12.5-18.0) g/dL Hct 34.2 L (42-50) % MCV 87.5 (78-100) fL MCH 29.9 (26-32) pg MCHC 34.2 (32-36) g/dL RDW 13.5 (11.5-14.0) % Plt Count 265 (150-450) x10^3/uL MPV 10.9 (7.5-11.0) fL Gran % (36.0-66.0) % Immature Gran % (Auto) (0.00-0.4) % Nucleat RBC Rel Count (0.00-0.1) % Eos # (Auto) (0-0.5) x10^3/uL Immature Gran # (Auto) (0.00-0.03) x10^3u/L Absolute Lymphs (auto) (1.0-4.6) x10^3/uL Absolute Monos (auto) (0.0-1.3) x10^3/uL Absolute Nucleated RBC (0.00-0.01) x10^3u/L Lymphocytes % (24.0-44.0) % Monocytes % (0.0-12.0) % Eosinophils % (0.00-5.0) % Basophils % (0.0-0.4) % Absolute Granulocytes (1.4-6.9) x10^3/uL Basophils # (0-0.4) x10^3/uL Puncture Site pCO2 (35-45) mmHg pO2 (75-100) mmHg Base Excess (-2.0-2.0) O2 Saturation (94-100) g/dF ABG pH (7.35-7.45) ABG HCO3 (22-28) ABG O2 Sat (Measured) (95-100) % Tone Test A-a Gradient a/A Ratio Hemoglobin Carboxyhemoglobin (0.0-6.9) % THgb Methemoglobin (1.4-1.5) % Temperature C POC O2 Flow Rate % Sodium (135-145) mmol/L Potassium (3.5-5.1) mmol/L Chloride (98-107) mmol/L Carbon Dioxide (22-30) mmol/L Anion Gap (5-15) MEQ/L BUN (9-20) mg/dL Creatinine (0.66-1.25) mg/dL Estimated GFR ML/MIN Glucose (74-106) mg/dL POC Glucometer 91 124 H (74 to 106) mg/dL Lactic Acid (0.4-2.0) Calcium (8.4-10.2) mg/dL Phosphorus (2.5-4.5) mg/dL Magnesium (1.6-2.3) mg/dL Total Bilirubin (0.2-1.3) mg/dL Direct Bilirubin (0.0-0.4) mg/dL AST (17-59) U/L ALT (0-50) U/L Alkaline Phosphatase (38-126) U/L Troponin I (0.000-0.034) ng/mL Serum Total Protein (6.3-8.2) g/dL Albumin (3.5-5.0) g/dL Amylase (30-110) U/L Lipase (23-300) U/L Urine Color (Yellow) Urine Appearance (Clear) Urine pH (4.6-8.0) Ur Specific [place] (1.005-1.030) Urine Protein (Negative) Urine Glucose (UA) (Negative) mg/dL Urine Ketones (Negative) Urine Blood (Negative) Urine Nitrite (Negative) Urine Bilirubin (Negative) Urine Urobilinogen (0.2) mg/dL Ur Leukocyte Esterase (Negative) U Hyaline Cast (Auto) (0-2) /LPF Urine Microscopic RBC (0-5) /HPF Urine Microscopic WBC (0-5) /HPF Ur Epithelial Cells (None Seen) /HPF Urine Bacteria (None Seen) /HPF Urine Culture Reflexed (NO) Influenza Type A Ag (NEGATIVE) Influenza Type B Ag (NEGATIVE) RSV (PCR) (NEGATIVE) SARS-CoV-2 (PCR) (NEGATIVE) Radiology Exams: Radiology Procedures Category Date Time Status ABDOMEN AND PELVIS W/0 CONTRAS [CT] Stat Exams 12/22/23 14:31 Completed Assessment/Plan (1) DKA (diabetic ketoacidoses) Current Visit: Yes Status: Acute Qualifiers: Diabetes mellitus type: drug or chemical induced Diabetes mellitus complication detail: without coma Qualified Code(s): 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 Assessment & Plan: -Strict I&O -Insulin drip per DKA protocol -Potassium/phos supplementation as needed with goal K>4 -Consider bicarb only if pH is <6.9 -Monitor glucose levels closely per protocol -GAP <18 - can resume diet and initiate insulin regimen, continuing drip at least 2 hours s/p subq insulin -monitor blood glucose levels and adjust insulin regimen as needed Code(s): E11.10 - TYPE 2 DIABETES MELLITUS WITH KETOACIDOSIS WITHOUT COMA (2) SYED (acute kidney injury) Current Visit: Yes Status: Acute Assessment & Plan: -2/2 to intravascular volume depletion from DKA -Improving, creat at 1.44 < 1.67 -Continue IVF -Strict I&O, monitor for fluid overload -Monitor renal/lytes daily Code(s): N17.9 - ACUTE KIDNEY FAILURE, UNSPECIFIED (3) Abdominal pain Current Visit: Yes Status: Acute Assessment & Plan: -Most likely resultant from DKA, CT abdomen unremarkable Code(s): R10.9 - UNSPECIFIED ABDOMINAL PAIN (4) Hyperkalemia Current Visit: Yes Status: Chronic Assessment & Plan: -resolved Code(s): E87.5 - HYPERKALEMIA (5) Seizure disorder Current Visit: Yes Status: Chronic Assessment & Plan: -incidence as a child, no home medications Code(s): G40.909 - EPILEPSY, UNSP, NOT INTRACTABLE, WITHOUT STATUS EPILEPTICUS (6) IDDM (insulin dependent diabetes mellitus) Current Visit: No Status: Acute Assessment & Plan: -see DKA Code(s): [id number] - (7) Peripheral neuropathy Current Visit: Yes Status: Chronic Assessment & Plan: -on gabapentin, on hold while NPO VTE: Lovenox Dispo: 1-2 days Code(s): G62.9 - POLYNEUROPATHY, UNSPECIFIED
[2023-12-23 05:39] LABS: ALBUMIN 4.1 g/dL (3.5-5.0); ANION GAP 15.4 MEQ/L (5-15); BILIRUBIN,TOTAL 1.6 mg/dL (0.2-1.3); Calcium 9.4 mg/dL (8.4-10.2); Creatinine 1 1.44 mg/dL (0.66-1.25); Direct Bilirubin 0.2 mg/dL (0.0-0.4); EST GLOMERULAR FILTRATION RATE 54.3 ML/MIN; Potassium 4.4 mmol/L (3.5-5.1); Total Protein 6.7 g/dL (6.3-8.2)
[2023-12-23 05:41] LABS: MAGNESIUM 2.3 mg/dL (1.6-2.3); PHOSPHOROUS 4.2 mg/dL (2.5-4.5)
[2023-12-23] MEDS: Lantus Insulin SQ SCH (07:31)
[2023-12-23] MEDS: TYLENOL 325 MG PO PRN (08:31)
[2023-12-23] MEDS: ENOXAPARIN SODIUM SQ SCH (08:32)
[2023-12-23 10:35] LABS: Hematocrit 33.8 % (42-50); Hemoglobin 11.3 g/dL (12.5-18.0); Mean Cell Volume 89.7 fL (78-100); Mean Corpuscular Hgb Concent. 33.4 g/dL (32-36); Mean Platelet Volume 11.3 fL (7.5-11.0); Platelet Count 244 x10^3/uL (150-450); Red Blood Count 3.77 x10^6/uL (4.1-5.6); Red Cell Distribution Width 13.6 % (11.5-14.0); White Blood Count 13.9 x10^3/uL (4.0-10.5)
[2023-12-23 10:41] LABS: ALBUMIN 3.9 g/dL (3.5-5.0); ANION GAP 14.6 MEQ/L (5-15); BILIRUBIN,TOTAL 1.6 mg/dL (0.2-1.3); Calcium 9.1 mg/dL (8.4-10.2); Creatinine 1 1.35 mg/dL (0.66-1.25); Direct Bilirubin 0.1 mg/dL (0.0-0.4); EST GLOMERULAR FILTRATION RATE 58.6 ML/MIN; Potassium 4.7 mmol/L (3.5-5.1); Total Protein 6.5 g/dL (6.3-8.2)
[2023-12-23 10:42] LABS: MAGNESIUM 2.1 mg/dL (1.6-2.3); PHOSPHOROUS 3.4 mg/dL (2.5-4.5)
[2023-12-23] MEDS: Lantus Insulin SQ ONE (10:46)
[2023-12-23] MEDS: HUMALOG SQ SCH (12:00)
[2023-12-23] MEDS ORDERED: HUMALOG SQ SCH (12:00)
[2023-12-23] MEDS: HUMALOG SQ PRN (12:00)
[2023-12-23 12:17] LABS: Hematocrit 34.1 % (42-50); Hemoglobin 11.2 g/dL (12.5-18.0); Mean Cell Volume 89.7 fL (78-100); Mean Corpuscular Hemoglobin 29.5 pg (26-32); Mean Corpuscular Hgb Concent. 32.8 g/dL (32-36); Mean Platelet Volume 10.4 fL (7.5-11.0); Platelet Count 227 x10^3/uL (150-450); Red Cell Distribution Width 13.7 % (11.5-14.0); White Blood Count 13.4 x10^3/uL (4.0-10.5)
[2023-12-23 12:33] LABS: ALBUMIN 3.9 g/dL (3.5-5.0); ANION GAP 15.9 MEQ/L (5-15); BILIRUBIN,TOTAL 1.7 mg/dL (0.2-1.3); Calcium 8.9 mg/dL (8.4-10.2); Creatinine 1 1.35 mg/dL (0.66-1.25); Direct Bilirubin 0.2 mg/dL (0.0-0.4); EST GLOMERULAR FILTRATION RATE 58.6 ML/MIN; PHOSPHOROUS 3.5 mg/dL (2.5-4.5); Potassium 4.6 mmol/L (3.5-5.1); Total Protein 6.4 g/dL (6.3-8.2)
--- NOTE | 2023-12-23 12:33 | PCM.DS ---
Discharge Summary Date of Admission: 12/22/23 17:55 Date of Discharge: 12/23/23 Admitting Physician: NANCY EDWARDS MD Primary Care Provider: DAINA,RUSTY Allergies Allergies codeine Adverse Reaction (Severe, Verified 12/22/23 14:13) Vomiting hydrocodone bitartrate [From Vicodin] Adverse Reaction (Severe, Verified 4 14:13) Vomiting propoxyphene [From Darvocet-N 100] Adverse Reaction (Verified 12/22/23 14:13) Hospital Summary - Hospital Course Hospital Course: Mr. Bishop is a 63 year old male with a pmhx of DMII and seizure (as a child with no further incidence) who presented to ED 12/22/23 with complaints of abdominal pain, nausea, and vomiting. CT of abdomen and pelvis w/o contrast demonstrates fecal stasis and a markedly distended bladder otherwise unremarkable. In the ED lab findings remarkable for leukocytosis with WBC at 16.5, potassium at 5.8, GAP acidosis with carbon dioxide at 7 and GAP at 34.8, SYED with BUN at 46 and creat at 1.67, glucose at 726, lactic acid at 3.4, total bili at 2.00, urine glucose >1000, and urine ketones at 80. Patient admitted for DKA. Gap closed overnight, blood glucose levels stable, diet initiated as well as subq insulin regimen. Nausea/vomiting have resolved. Patient stable for discharge, advised patient follow up with PCP. A1c at 10.37, discussed the importance of good glycemic control and compliance with insulin regimen. Discharge Note New Diagnosis: DKA New Medications: none Follow Up: PCP Latest Assessment & Plan (1) DKA (diabetic ketoacidoses) Current Visit: Yes Status: Acute Qualifiers: Diabetes mellitus type: drug or chemical induced Diabetes mellitus complication detail: without coma Qualified Code(s): 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 Assessment & Plan: -Strict I&O -Insulin drip per DKA protocol -Potassium/phos supplementation as needed with goal K>4 -Consider bicarb only if pH is <6.9 -Monitor glucose levels closely per protocol -GAP <18 - can resume diet and initiate insulin regimen, continuing drip at least 2 hours s/p subq insulin -monitor blood glucose levels and adjust insulin regimen as needed Code(s): E11.10 - TYPE 2 DIABETES MELLITUS WITH KETOACIDOSIS WITHOUT COMA (2) SYED (acute kidney injury) Current Visit: Yes Status: Acute Assessment & Plan: -2/2 to intravascular volume depletion from DKA -Improving, creat at 1.44 < 1.67 -Continue IVF -Strict I&O, monitor for fluid overload -Monitor renal/lytes daily Code(s): N17.9 - ACUTE KIDNEY FAILURE, UNSPECIFIED (3) Abdominal pain Current Visit: Yes Status: Acute Assessment & Plan: -Most likely resultant from DKA, CT abdomen unremarkable Code(s): R10.9 - UNSPECIFIED ABDOMINAL PAIN (4) Hyperkalemia Current Visit: Yes Status: Chronic Assessment & Plan: -resolved Code(s): E87.5 - HYPERKALEMIA (5) Seizure disorder Current Visit: Yes Status: Chronic Assessment & Plan: -incidence as a child, no home medications Code(s): G40.909 - EPILEPSY, UNSP, NOT INTRACTABLE, WITHOUT STATUS EPILEPTICUS (6) IDDM (insulin dependent diabetes mellitus) Current Visit: No Status: Acute Assessment & Plan: -see DKA Code(s): UKC9120 - (7) Peripheral neuropathy Current Visit: Yes Status: Chronic Assessment & Plan: -on gabapentin, on hold while NPO I spent 35 minutes [id number] with the patient on the day of discharge performing discharge exam, discussing hospital stay and discharge instructions with patient and caregivers, preparation of discharge records, prescriptions & referral forms and addressing any questions/concerns the patient had as documented above. - Vitals & Intake/Output Vital Signs: Vital Signs Temperature 98.9 F 12/23/23 10:49 Pulse Rate 89 12/23/23 12:00 Respiratory Rate 16 12/23/23 10:49 Blood Pressure 157/73 12/23/23 10:49 O2 Sat by Pulse Oximetry 98 12/23/23 10:49 Intake & Output: Intake & Output 12/21/23 12/22/23 12/23/23 12/24/23 11:59 11:59 11:59 11:59 Intake Total 1604 120 Output Total 1125 200 Balance 479 -80 Weight 73.3 kg - Lab Result Diagrams: 12/23/23 16:40 12/23/23 12:10 Lab Results-Last 24 Hrs: Lab Results-Last 24 Hours 12/22/23 12/22/23 12/22/23 Range/Units 14:31 14:40 14:40 WBC 16.5 H (4.0-10.5) x10^3/uL RBC 4.55 (4.1-5.6) x10^6/uL Hgb 13.4 (12.5-18.0) g/dL Hct 41.4 L (42-50) % MCV 91.0 (78-100) fL MCH 29.5 (26-32) pg MCHC 32.4 (32-36) g/dL RDW 13.1 (11.5-14.0) % Plt Count 307 (150-450) x10^3/uL MPV 12.0 H (7.5-11.0) fL Gran % 88.6 H (36.0-66.0) % Immature Gran % (Auto) 0.4 (0.00-0.4) % Nucleat RBC Rel Count 0.0 (0.00-0.1) % Eos # (Auto) 0.01 (0-0.5) x10^3/uL Immature Gran # (Auto) 0.07 H (0.00-0.03) x10^3u/L Absolute Lymphs (auto) 1.15 (1.0-4.6) x10^3/uL Absolute Monos (auto) 0.53 (0.0-1.3) x10^3/uL Absolute Nucleated RBC 0.00 (0.00-0.01) x10^3u/L Lymphocytes % 7.0 L (24.0-44.0) % Monocytes % 3.2 (0.0-12.0) % Eosinophils % 0.1 (0.00-5.0) % Basophils % 0.7 (0.0-0.4) % Absolute Granulocytes 14.62 H (1.4-6.9) x10^3/uL Basophils # 0.12 (0-0.4) x10^3/uL Puncture Site pCO2 (35-45) mmHg pO2 (75-100) mmHg Base Excess (-2.0-2.0) O2 Saturation (94-100) g/dF ABG pH (7.35-7.45) ABG HCO3 (22-28) ABG O2 Sat (Measured) (95-100) % Tone Test A-a Gradient a/A Ratio Hemoglobin Carboxyhemoglobin (0.0-6.9) % THgb Methemoglobin (1.4-1.5) % Temperature C POC O2 Flow Rate % Sodium 137 (135-145) mmol/L Potassium 5.8 H (3.5-5.1) mmol/L Chloride 101 (98-107) mmol/L Carbon Dioxide 7 L* (22-30) mmol/L Anion Gap 34.8 H (5-15) MEQ/L BUN 46 H (9-20) mg/dL Creatinine 1.67 H (0.66-1.25) mg/dL Estimated GFR 45.4 ML/MIN Glucose 726 H* (74-106) mg/dL POC Glucometer (74 to 106) mg/dL Hemoglobin A1c (4.5-6.0) % Lactic Acid 3.4 H (0.4-2.0) Calcium 10.0 (8.4-10.2) mg/dL Phosphorus (2.5-4.5) mg/dL Magnesium (1.6-2.3) mg/dL Total Bilirubin 2.00 H (0.2-1.3) mg/dL Direct Bilirubin (0.0-0.4) mg/dL AST 23 (17-59) U/L ALT 27 (0-50) U/L Alkaline Phosphatase 105 (38-126) U/L Troponin I (0.000-0.034) ng/mL Serum Total Protein 7.7 (6.3-8.2) g/dL Albumin 4.9 (3.5-5.0) g/dL Amylase 57 (30-110) U/L Lipase 30 (23-300) U/L Urine Color (Yellow) Urine Appearance (Clear) Urine pH (4.6-8.0) Ur Specific [place] (1.005-1.030) Urine Protein (Negative) Urine Glucose (UA) (Negative) mg/dL Urine Ketones (Negative) Urine Blood (Negative) Urine Nitrite (Negative) Urine Bilirubin (Negative) Urine Urobilinogen (0.2) mg/dL Ur Leukocyte Esterase (Negative) U Hyaline Cast (Auto) (0-2) /LPF Urine Microscopic RBC (0-5) /HPF Urine Microscopic WBC (0-5) /HPF Ur Epithelial Cells (None Seen) /HPF Urine Bacteria (None Seen) /HPF Urine Culture Reflexed (NO) Influenza Type A Ag (NEGATIVE) Influenza Type B Ag (NEGATIVE) RSV (PCR) (NEGATIVE) SARS-CoV-2 (PCR) (NEGATIVE) 12/22/23 12/22/23 12/22/23 Range/Units 14:52 15:45 15:56 WBC (4.0-10.5) x10^3/uL RBC (4.1-5.6) x10^6/uL Hgb (12.5-18.0) g/dL Hct (42-50) % MCV (78-100) fL MCH (26-32) pg MCHC (32-36) g/dL RDW (11.5-14.0) % Plt Count (150-450) x10^3/uL MPV (7.5-11.0) fL Gran % (36.0-66.0) % Immature Gran % (Auto) (0.00-0.4) % Nucleat RBC Rel Count (0.00-0.1) % Eos # (Auto) (0-0.5) x10^3/uL Immature Gran # (Auto) (0.00-0.03) x10^3u/L Absolute Lymphs (auto) (1.0-4.6) x10^3/uL Absolute Monos (auto) (0.0-1.3) x10^3/uL Absolute Nucleated RBC (0.00-0.01) x10^3u/L Lymphocytes % (24.0-44.0) % Monocytes % (0.0-12.0) % Eosinophils % (0.00-5.0) % Basophils % (0.0-0.4) % Absolute Granulocytes (1.4-6.9) x10^3/uL Basophils # (0-0.4) x10^3/uL Puncture Site pCO2 (35-45) mmHg pO2 (75-100) mmHg Base Excess (-2.0-2.0) O2 Saturation (94-100) g/dF ABG pH (7.35-7.45) ABG HCO3 (22-28) ABG O2 Sat (Measured) (95-100) % Tone Test A-a Gradient a/A Ratio Hemoglobin Carboxyhemoglobin (0.0-6.9) % THgb Methemoglobin (1.4-1.5) % Temperature C POC O2 Flow Rate % Sodium (135-145) mmol/L Potassium (3.5-5.1) mmol/L Chloride (98-107) mmol/L Carbon Dioxide (22-30) mmol/L Anion Gap (5-15) MEQ/L BUN (9-20) mg/dL Creatinine (0.66-1.25) mg/dL Estimated GFR ML/MIN Glucose (74-106) mg/dL POC Glucometer (74 to 106) mg/dL Hemoglobin A1c (4.5-6.0) % Lactic Acid (0.4-2.0) Calcium (8.4-10.2) mg/dL Phosphorus (2.5-4.5) mg/dL Magnesium (1.6-2.3) mg/dL Total Bilirubin (0.2-1.3) mg/dL Direct Bilirubin (0.0-0.4) mg/dL AST (17-59) U/L ALT (0-50) U/L Alkaline Phosphatase (38-126) U/L Troponin I < 0.012 (0.000-0.034) ng/mL Serum Total Protein (6.3-8.2) g/dL Albumin (3.5-5.0) g/dL Amylase (30-110) U/L Lipase (23-300) U/L Urine Color Yellow (Yellow) Urine Appearance Clear (Clear) Urine pH 5.0 (4.6-8.0) Ur Specific [place] 1.025 (1.005-1.030) Urine Protein 30 (Negative) Urine Glucose (UA) >=1000 A (Negative) mg/dL Urine Ketones 80 A (Negative) Urine Blood Negative (Negative) Urine Nitrite Negative (Negative) Urine Bilirubin Negative (Negative) Urine Urobilinogen 0.2 (0.2) mg/dL Ur Leukocyte Esterase Negative (Negative) U Hyaline Cast (Auto) NONE SEEN (0-2) /LPF Urine Microscopic RBC 0-2 (0-5) /HPF Urine Microscopic WBC 0-2 (0-5) /HPF Ur Epithelial Cells None Seen (None Seen) /HPF Urine Bacteria None Seen (None Seen) /HPF Urine Culture Reflexed NO (NO) Influenza Type A Ag NEGATIVE (NEGATIVE) Influenza Type B Ag NEGATIVE (NEGATIVE) RSV (PCR) NEGATIVE (NEGATIVE) SARS-CoV-2 (PCR) NEGATIVE (NEGATIVE) 12/22/23 12/22/23 12/22/23 Range/Units 16:45 17:07 18:03 WBC (4.0-10.5) x10^3/uL RBC (4.1-5.6) x10^6/uL Hgb (12.5-18.0) g/dL Hct (42-50) % MCV (78-100) fL MCH (26-32) pg MCHC (32-36) g/dL RDW (11.5-14.0) % Plt Count (150-450) x10^3/uL MPV (7.5-11.0) fL Gran % (36.0-66.0) % Immature Gran % (Auto) (0.00-0.4) % Nucleat RBC Rel Count (0.00-0.1) % Eos # (Auto) (0-0.5) x10^3/uL Immature Gran # (Auto) (0.00-0.03) x10^3u/L Absolute Lymphs (auto) (1.0-4.6) x10^3/uL Absolute Monos (auto) (0.0-1.3) x10^3/uL Absolute Nucleated RBC (0.00-0.01) x10^3u/L Lymphocytes % (24.0-44.0) % Monocytes % (0.0-12.0) % Eosinophils % (0.00-5.0) % Basophils % (0.0-0.4) % Absolute Granulocytes (1.4-6.9) x10^3/uL Basophils # (0-0.4) x10^3/uL Puncture Site pCO2 (35-45) mmHg pO2 (75-100) mmHg Base Excess (-2.0-2.0) O2 Saturation (94-100) g/dF ABG pH (7.35-7.45) ABG HCO3 (22-28) ABG O2 Sat (Measured) (95-100) % Tone Test A-a Gradient a/A Ratio Hemoglobin Carboxyhemoglobin (0.0-6.9) % THgb Methemoglobin (1.4-1.5) % Temperature C POC O2 Flow Rate % Sodium (135-145) mmol/L Potassium (3.5-5.1) mmol/L Chloride (98-107) mmol/L Carbon Dioxide (22-30) mmol/L Anion Gap (5-15) MEQ/L BUN (9-20) mg/dL Creatinine (0.66-1.25) mg/dL Estimated GFR ML/MIN Glucose (74-106) mg/dL POC Glucometer 460 H 541 H* (74 to 106) mg/dL Hemoglobin A1c (4.5-6.0) % Lactic Acid 2.0 (0.4-2.0) Calcium (8.4-10.2) mg/dL Phosphorus (2.5-4.5) mg/dL Magnesium (1.6-2.3) mg/dL Total Bilirubin (0.2-1.3) mg/dL Direct Bilirubin (0.0-0.4) mg/dL AST (17-59) U/L ALT (0-50) U/L Alkaline Phosphatase (38-126) U/L Troponin I (0.000-0.034) ng/mL Serum Total Protein (6.3-8.2) g/dL Albumin (3.5-5.0) g/dL Amylase (30-110) U/L Lipase (23-300) U/L Urine Color (Yellow) Urine Appearance (Clear) Urine pH (4.6-8.0) Ur Specific [place] (1.005-1.030) Urine Protein (Negative) Urine Glucose (UA) (Negative) mg/dL Urine Ketones (Negative) Urine Blood (Negative) Urine Nitrite (Negative) Urine Bilirubin (Negative) Urine Urobilinogen (0.2) mg/dL Ur Leukocyte Esterase (Negative) U Hyaline Cast (Auto) (0-2) /LPF Urine Microscopic RBC (0-5) /HPF Urine Microscopic WBC (0-5) /HPF Ur Epithelial Cells (None Seen) /HPF Urine Bacteria (None Seen) /HPF Urine Culture Reflexed (NO) Influenza Type A Ag (NEGATIVE) Influenza Type B Ag (NEGATIVE) RSV (PCR) (NEGATIVE) SARS-CoV-2 (PCR) (NEGATIVE) 12/22/23 12/22/2324 Range/Units 18:40 19:20 19:20 WBC 16.8 H (4.0-10.5) x10^3/uL RBC 4.24 (4.1-5.6) x10^6/uL Hgb 12.6 (12.5-18.0) g/dL Hct 38.8 L (42-50) % MCV 91.5 (78-100) fL MCH 29.7 (26-32) pg MCHC 32.5 (32-36) g/dL RDW 13.2 (11.5-14.0) % Plt Count 258 (150-450) x10^3/uL MPV 11.3 H (7.5-11.0) fL Gran % (36.0-66.0) % Immature Gran % (Auto) (0.00-0.4) % Nucleat RBC Rel Count (0.00-0.1) % Eos # (Auto) (0-0.5) x10^3/uL Immature Gran # (Auto) (0.00-0.03) x10^3u/L Absolute Lymphs (auto) (1.0-4.6) x10^3/uL Absolute Monos (auto) (0.0-1.3) x10^3/uL Absolute Nucleated RBC (0.00-0.01) x10^3u/L Lymphocytes % (24.0-44.0) % Monocytes % (0.0-12.0) % Eosinophils % (0.00-5.0) % Basophils % (0.0-0.4) % Absolute Granulocytes (1.4-6.9) x10^3/uL Basophils # (0-0.4) x10^3/uL Puncture Site LEFT RADIAL pCO2 28 L (35-45) mmHg pO2 91 (75-100) mmHg Base Excess -12.5 L (-2.0-2.0) O2 Saturation 96.6 (94-100) g/dF ABG pH 7.27 L (7.35-7.45) ABG HCO3 12.9 L* (22-28) ABG O2 Sat (Measured) 97.7 (95-100) % Tone Test YES A-a Gradient 24 a/A Ratio 0.79 Hemoglobin 12.7 Carboxyhemoglobin 0.7 (0.0-6.9) % THgb Methemoglobin 0.4 L (1.4-1.5) % Temperature 37.0 C POC O2 Flow Rate 21 % Sodium (135-145) mmol/L Potassium 5.2 H (3.5-5.1) mmol/L Chloride (98-107) mmol/L Carbon Dioxide (22-30) mmol/L Anion Gap (5-15) MEQ/L BUN (9-20) mg/dL Creatinine (0.66-1.25) mg/dL Estimated GFR ML/MIN Glucose (74-106) mg/dL POC Glucometer (74 to 106) mg/dL Hemoglobin A1c (4.5-6.0) % Lactic Acid (0.4-2.0) Calcium (8.4-10.2) mg/dL Phosphorus (2.5-4.5) mg/dL Magnesium (1.6-2.3) mg/dL Total Bilirubin (0.2-1.3) mg/dL Direct Bilirubin (0.0-0.4) mg/dL AST (17-59) U/L ALT (0-50) U/L Alkaline Phosphatase (38-126) U/L Troponin I 0.013 (0.000-0.034) ng/mL Serum Total Protein (6.3-8.2) g/dL Albumin (3.5-5.0) g/dL Amylase (30-110) U/L Lipase (23-300) U/L Urine Color (Yellow) Urine Appearance (Clear) Urine pH (4.6-8.0) Ur Specific [place] (1.005-1.030) Urine Protein (Negative) Urine Glucose (UA) (Negative) mg/dL Urine Ketones (Negative) Urine Blood (Negative) Urine Nitrite (Negative) Urine Bilirubin (Negative) Urine Urobilinogen (0.2) mg/dL Ur Leukocyte Esterase (Negative) U Hyaline Cast (Auto) (0-2) /LPF Urine Microscopic RBC (0-5) /HPF Urine Microscopic WBC (0-5) /HPF Ur Epithelial Cells (None Seen) /HPF Urine Bacteria (None Seen) /HPF Urine Culture Reflexed (NO) Influenza Type A Ag (NEGATIVE) Influenza Type B Ag (NEGATIVE) RSV (PCR) (NEGATIVE) SARS-CoV-2 (PCR) (NEGATIVE) 12/22/23 12/22/23 12/22/23 Range/Units 19:20 20:19 21:21 WBC (4.0-10.5) x10^3/uL RBC (4.1-5.6) x10^6/uL Hgb (12.5-18.0) g/dL Hct (42-50) % MCV (78-100) fL MCH (26-32) pg MCHC (32-36) g/dL RDW (11.5-14.0) % Plt Count (150-450) x10^3/uL MPV (7.5-11.0) fL Gran % (36.0-66.0) % Immature Gran % (Auto) (0.00-0.4) % Nucleat RBC Rel Count (0.00-0.1) % Eos # (Auto) (0-0.5) x10^3/uL Immature Gran # (Auto) (0.00-0.03) x10^3u/L Absolute Lymphs (auto) (1.0-4.6) x10^3/uL Absolute Monos (auto) (0.0-1.3) x10^3/uL Absolute Nucleated RBC (0.00-0.01) x10^3u/L Lymphocytes % (24.0-44.0) % Monocytes % (0.0-12.0) % Eosinophils % (0.00-5.0) % Basophils % (0.0-0.4) % Absolute Granulocytes (1.4-6.9) x10^3/uL Basophils # (0-0.4) x10^3/uL Puncture Site pCO2 (35-45) mmHg pO2 (75-100) mmHg Base Excess (-2.0-2.0) O2 Saturation (94-100) g/dF ABG pH (7.35-7.45) ABG HCO3 (22-28) ABG O2 Sat (Measured) (95-100) % Tone Test A-a Gradient a/A Ratio Hemoglobin Carboxyhemoglobin (0.0-6.9) % THgb Methemoglobin (1.4-1.5) % Temperature C POC O2 Flow Rate % Sodium 142 (135-145) mmol/L Potassium 4.9 (3.5-5.1) mmol/L Chloride 108 H (98-107) mmol/L Carbon Dioxide 10 L* (22-30) mmol/L Anion Gap 31.0 H (5-15) MEQ/L BUN 46 H (9-20) mg/dL Creatinine 1.77 H (0.66-1.25) mg/dL Estimated GFR 42.4 ML/MIN Glucose 542 H* (74-106) mg/dL POC Glucometer 412 H 347 H (74 to 106) mg/dL Hemoglobin A1c (4.5-6.0) % Lactic Acid (0.4-2.0) Calcium 9.6 (8.4-10.2) mg/dL Phosphorus 5.4 H (2.5-4.5) mg/dL Magnesium 2.4 H (1.6-2.3) mg/dL Total Bilirubin 1.40 H (0.2-1.3) mg/dL Direct Bilirubin 0.2 (0.0-0.4) mg/dL AST 18 (17-59) U/L ALT 25 (0-50) U/L Alkaline Phosphatase 90 (38-126) U/L Troponin I (0.000-0.034) ng/mL Serum Total Protein 7.3 (6.3-8.2) g/dL Albumin 4.5 (3.5-5.0) g/dL Amylase (30-110) U/L Lipase (23-300) U/L Urine Color (Yellow) Urine Appearance (Clear) Urine pH (4.6-8.0) Ur Specific [place] (1.005-1.030) Urine Protein (Negative) Urine Glucose (UA) (Negative) mg/dL Urine Ketones (Negative) Urine Blood (Negative) Urine Nitrite (Negative) Urine Bilirubin (Negative) Urine Urobilinogen (0.2) mg/dL Ur Leukocyte Esterase (Negative) U Hyaline Cast (Auto) (0-2) /LPF Urine Microscopic RBC (0-5) /HPF Urine Microscopic WBC (0-5) /HPF Ur Epithelial Cells (None Seen) /HPF Urine Bacteria (None Seen) /HPF Urine Culture Reflexed (NO) Influenza Type A Ag (NEGATIVE) Influenza Type B Ag (NEGATIVE) RSV (PCR) (NEGATIVE) SARS-CoV-2 (PCR) (NEGATIVE) 12/22/23 12/22/23 12/22/23 Range/Units 22:23 23:20 23:38 WBC (4.0-10.5) x10^3/uL RBC (4.1-5.6) x10^6/uL Hgb (12.5-18.0) g/dL Hct (42-50) % MCV (78-100) fL MCH (26-32) pg MCHC (32-36) g/dL RDW (11.5-14.0) % Plt Count (150-450) x10^3/uL MPV (7.5-11.0) fL Gran % (36.0-66.0) % Immature Gran % (Auto) (0.00-0.4) % Nucleat RBC Rel Count (0.00-0.1) % Eos # (Auto) (0-0.5) x10^3/uL Immature Gran # (Auto) (0.00-0.03) x10^3u/L Absolute Lymphs (auto) (1.0-4.6) x10^3/uL Absolute Monos (auto) (0.0-1.3) x10^3/uL Absolute Nucleated RBC (0.00-0.01) x10^3u/L Lymphocytes % (24.0-44.0) % Monocytes % (0.0-12.0) % Eosinophils % (0.00-5.0) % Basophils % (0.0-0.4) % Absolute Granulocytes (1.4-6.9) x10^3/uL Basophils # (0-0.4) x10^3/uL Puncture Site pCO2 (35-45) mmHg pO2 (75-100) mmHg Base Excess (-2.0-2.0) O2 Saturation (94-100) g/dF ABG pH (7.35-7.45) ABG HCO3 (22-28) ABG O2 Sat (Measured) (95-100) % Tone Test A-a Gradient a/A Ratio Hemoglobin Carboxyhemoglobin (0.0-6.9) % THgb Methemoglobin (1.4-1.5) % Temperature C POC O2 Flow Rate % Sodium (135-145) mmol/L Potassium (3.5-5.1) mmol/L Chloride (98-107) mmol/L Carbon Dioxide (22-30) mmol/L Anion Gap (5-15) MEQ/L BUN (9-20) mg/dL Creatinine (0.66-1.25) mg/dL Estimated GFR ML/MIN Glucose (74-106) mg/dL POC Glucometer 304 H 246 H (74 to 106) mg/dL Hemoglobin A1c (4.5-6.0) % Lactic Acid (0.4-2.0) Calcium (8.4-10.2) mg/dL Phosphorus (2.5-4.5) mg/dL Magnesium (1.6-2.3) mg/dL Total Bilirubin (0.2-1.3) mg/dL Direct Bilirubin (0.0-0.4) mg/dL AST (17-59) U/L ALT (0-50) U/L Alkaline Phosphatase (38-126) U/L Troponin I 0.039 H* (0.000-0.034) ng/mL Serum Total Protein (6.3-8.2) g/dL Albumin (3.5-5.0) g/dL Amylase (30-110) U/L Lipase (23-300) U/L Urine Color (Yellow) Urine Appearance (Clear) Urine pH (4.6-8.0) Ur Specific [place] (1.005-1.030) Urine Protein (Negative) Urine Glucose (UA) (Negative) mg/dL Urine Ketones (Negative) Urine Blood (Negative) Urine Nitrite (Negative) Urine Bilirubin (Negative) Urine Urobilinogen (0.2) mg/dL Ur Leukocyte Esterase (Negative) U Hyaline Cast (Auto) (0-2) /LPF Urine Microscopic RBC (0-5) /HPF Urine Microscopic WBC (0-5) /HPF Ur Epithelial Cells (None Seen) /HPF Urine Bacteria (None Seen) /HPF Urine Culture Reflexed (NO) Influenza Type A Ag (NEGATIVE) Influenza Type B Ag (NEGATIVE) RSV (PCR) (NEGATIVE) SARS-CoV-2 (PCR) (NEGATIVE) 12/22/23 12/22/23 12/23/23 Range/Units 23:38 23:40 00:20 WBC 15.6 H (4.0-10.5) x10^3/uL RBC 4.06 L (4.1-5.6) x10^6/uL Hgb 12.1 L (12.5-18.0) g/dL Hct 35.1 L (42-50) % MCV 86.5 (78-100) fL MCH 29.8 (26-32) pg MCHC 34.5 (32-36) g/dL RDW 13.3 (11.5-14.0) % Plt Count 292 (150-450) x10^3/uL MPV 10.8 (7.5-11.0) fL Gran % (36.0-66.0) % Immature Gran % (Auto) (0.00-0.4) % Nucleat RBC Rel Count (0.00-0.1) % Eos # (Auto) (0-0.5) x10^3/uL Immature Gran # (Auto) (0.00-0.03) x10^3u/L Absolute Lymphs (auto) (1.0-4.6) x10^3/uL Absolute Monos (auto) (0.0-1.3) x10^3/uL Absolute Nucleated RBC (0.00-0.01) x10^3u/L Lymphocytes % (24.0-44.0) % Monocytes % (0.0-12.0) % Eosinophils % (0.00-5.0) % Basophils % (0.0-0.4) % Absolute Granulocytes (1.4-6.9) x10^3/uL Basophils # (0-0.4) x10^3/uL Puncture Site pCO2 (35-45) mmHg pO2 (75-100) mmHg Base Excess (-2.0-2.0) O2 Saturation (94-100) g/dF ABG pH (7.35-7.45) ABG HCO3 (22-28) ABG O2 Sat (Measured) (95-100) % Tone Test A-a Gradient a/A Ratio Hemoglobin Carboxyhemoglobin (0.0-6.9) % THgb Methemoglobin (1.4-1.5) % Temperature C POC O2 Flow Rate % Sodium 146 H (135-145) mmol/L Potassium 4.5 (3.5-5.1) mmol/L Chloride 115 H (98-107) mmol/L Carbon Dioxide 18 L (22-30) mmol/L Anion Gap 17.3 H (5-15) MEQ/L BUN 48 H (9-20) mg/dL Creatinine 1.67 H (0.66-1.25) mg/dL Estimated GFR 45.4 ML/MIN Glucose 241 H (74-106) mg/dL POC Glucometer 164 H (74 to 106) mg/dL Hemoglobin A1c (4.5-6.0) % Lactic Acid (0.4-2.0) Calcium 9.9 (8.4-10.2) mg/dL Phosphorus 3.4 (2.5-4.5) mg/dL Magnesium 2.3 (1.6-2.3) mg/dL Total Bilirubin 1.50 H (0.2-1.3) mg/dL Direct Bilirubin 0.1 (0.0-0.4) mg/dL AST 17 (17-59) U/L ALT 23 (0-50) U/L Alkaline Phosphatase 82 (38-126) U/L Troponin I (0.000-0.034) ng/mL Serum Total Protein 6.7 (6.3-8.2) g/dL Albumin 4.1 (3.5-5.0) g/dL Amylase (30-110) U/L Lipase (23-300) U/L Urine Color (Yellow) Urine Appearance (Clear) Urine pH (4.6-8.0) Ur Specific [place] (1.005-1.030) Urine Protein (Negative) Urine Glucose (UA) (Negative) mg/dL Urine Ketones (Negative) Urine Blood (Negative) Urine Nitrite (Negative) Urine Bilirubin (Negative) Urine Urobilinogen (0.2) mg/dL Ur Leukocyte Esterase (Negative) U Hyaline Cast (Auto) (0-2) /LPF Urine Microscopic RBC (0-5) /HPF Urine Microscopic WBC (0-5) /HPF Ur Epithelial Cells (None Seen) /HPF Urine Bacteria (None Seen) /HPF Urine Culture Reflexed (NO) Influenza Type A Ag (NEGATIVE) Influenza Type B Ag (NEGATIVE) RSV (PCR) (NEGATIVE) SARS-CoV-2 (PCR) (NEGATIVE) 12/23/23 12/23/23 12/23/23 Range/Units 01:02 02:14 03:13 WBC (4.0-10.5) x10^3/uL RBC (4.1-5.6) x10^6/uL Hgb (12.5-18.0) g/dL Hct (42-50) % MCV (78-100) fL MCH (26-32) pg MCHC (32-36) g/dL RDW (11.5-14.0) % Plt Count (150-450) x10^3/uL MPV (7.5-11.0) fL Gran % (36.0-66.0) % Immature Gran % (Auto) (0.00-0.4) % Nucleat RBC Rel Count (0.00-0.1) % Eos # (Auto) (0-0.5) x10^3/uL Immature Gran # (Auto) (0.00-0.03) x10^3u/L Absolute Lymphs (auto) (1.0-4.6) x10^3/uL Absolute Monos (auto) (0.0-1.3) x10^3/uL Absolute Nucleated RBC (0.00-0.01) x10^3u/L Lymphocytes % (24.0-44.0) % Monocytes % (0.0-12.0) % Eosinophils % (0.00-5.0) % Basophils % (0.0-0.4) % Absolute Granulocytes (1.4-6.9) x10^3/uL Basophils # (0-0.4) x10^3/uL Puncture Site pCO2 (35-45) mmHg pO2 (75-100) mmHg Base Excess (-2.0-2.0) O2 Saturation (94-100) g/dF ABG pH (7.35-7.45) ABG HCO3 (22-28) ABG O2 Sat (Measured) (95-100) % Tone Test A-a Gradient a/A Ratio Hemoglobin Carboxyhemoglobin (0.0-6.9) % THgb Methemoglobin (1.4-1.5) % Temperature C POC O2 Flow Rate % Sodium (135-145) mmol/L Potassium (3.5-5.1) mmol/L Chloride (98-107) mmol/L Carbon Dioxide (22-30) mmol/L Anion Gap (5-15) MEQ/L BUN (9-20) mg/dL Creatinine (0.66-1.25) mg/dL Estimated GFR ML/MIN Glucose (74-106) mg/dL POC Glucometer 201 H 143 H 95 (74 to 106) mg/dL Hemoglobin A1c (4.5-6.0) % Lactic Acid (0.4-2.0) Calcium (8.4-10.2) mg/dL Phosphorus (2.5-4.5) mg/dL Magnesium (1.6-2.3) mg/dL Total Bilirubin (0.2-1.3) mg/dL Direct Bilirubin (0.0-0.4) mg/dL AST (17-59) U/L ALT (0-50) U/L Alkaline Phosphatase (38-126) U/L Troponin I (0.000-0.034) ng/mL Serum Total Protein (6.3-8.2) g/dL Albumin (3.5-5.0) g/dL Amylase (30-110) U/L Lipase (23-300) U/L Urine Color (Yellow) Urine Appearance (Clear) Urine pH (4.6-8.0) Ur Specific [place] (1.005-1.030) Urine Protein (Negative) Urine Glucose (UA) (Negative) mg/dL Urine Ketones (Negative) Urine Blood (Negative) Urine Nitrite (Negative) Urine Bilirubin (Negative) Urine Urobilinogen (0.2) mg/dL Ur Leukocyte Esterase (Negative) U Hyaline Cast (Auto) (0-2) /LPF Urine Microscopic RBC (0-5) /HPF Urine Microscopic WBC (0-5) /HPF Ur Epithelial Cells (None Seen) /HPF Urine Bacteria (None Seen) /HPF Urine Culture Reflexed (NO) Influenza Type A Ag (NEGATIVE) Influenza Type B Ag (NEGATIVE) RSV (PCR) (NEGATIVE) SARS-CoV-2 (PCR) (NEGATIVE) 12/23/23 12/23/23 12/23/23 Range/Units 04:17 05:11 05:24 WBC (4.0-10.5) x10^3/uL RBC (4.1-5.6) x10^6/uL Hgb (12.5-18.0) g/dL Hct (42-50) % MCV (78-100) fL MCH (26-32) pg MCHC (32-36) g/dL RDW (11.5-14.0) % Plt Count (150-450) x10^3/uL MPV (7.5-11.0) fL Gran % (36.0-66.0) % Immature Gran % (Auto) (0.00-0.4) % Nucleat RBC Rel Count (0.00-0.1) % Eos # (Auto) (0-0.5) x10^3/uL Immature Gran # (Auto) (0.00-0.03) x10^3u/L Absolute Lymphs (auto) (1.0-4.6) x10^3/uL Absolute Monos (auto) (0.0-1.3) x10^3/uL Absolute Nucleated RBC (0.00-0.01) x10^3u/L Lymphocytes % (24.0-44.0) % Monocytes % (0.0-12.0) % Eosinophils % (0.00-5.0) % Basophils % (0.0-0.4) % Absolute Granulocytes (1.4-6.9) x10^3/uL Basophils # (0-0.4) x10^3/uL Puncture Site pCO2 (35-45) mmHg pO2 (75-100) mmHg Base Excess (-2.0-2.0) O2 Saturation (94-100) g/dF ABG pH (7.35-7.45) ABG HCO3 (22-28) ABG O2 Sat (Measured) (95-100) % Tone Test A-a Gradient a/A Ratio Hemoglobin Carboxyhemoglobin (0.0-6.9) % THgb Methemoglobin (1.4-1.5) % Temperature C POC O2 Flow Rate % Sodium (135-145) mmol/L Potassium (3.5-5.1) mmol/L Chloride (98-107) mmol/L Carbon Dioxide (22-30) mmol/L Anion Gap (5-15) MEQ/L BUN (9-20) mg/dL Creatinine (0.66-1.25) mg/dL Estimated GFR ML/MIN Glucose (74-106) mg/dL POC Glucometer 91 124 H (74 to 106) mg/dL Hemoglobin A1c (4.5-6.0) % Lactic Acid (0.4-2.0) Calcium (8.4-10.2) mg/dL Phosphorus 4.2 (2.5-4.5) mg/dL Magnesium 2.3 (1.6-2.3) mg/dL Total Bilirubin (0.2-1.3) mg/dL Direct Bilirubin (0.0-0.4) mg/dL AST (17-59) U/L ALT (0-50) U/L Alkaline Phosphatase (38-126) U/L Troponin I (0.000-0.034) ng/mL Serum Total Protein (6.3-8.2) g/dL Albumin (3.5-5.0) g/dL Amylase (30-110) U/L Lipase (23-300) U/L Urine Color (Yellow) Urine Appearance (Clear) Urine pH (4.6-8.0) Ur Specific [place] (1.005-1.030) Urine Protein (Negative) Urine Glucose (UA) (Negative) mg/dL Urine Ketones (Negative) Urine Blood (Negative) Urine Nitrite (Negative) Urine Bilirubin (Negative) Urine Urobilinogen (0.2) mg/dL Ur Leukocyte Esterase (Negative) U Hyaline Cast (Auto) (0-2) /LPF Urine Microscopic RBC (0-5) /HPF Urine Microscopic WBC (0-5) /HPF Ur Epithelial Cells (None Seen) /HPF Urine Bacteria (None Seen) /HPF Urine Culture Reflexed (NO) Influenza Type A Ag (NEGATIVE) Influenza Type B Ag (NEGATIVE) RSV (PCR) (NEGATIVE) SARS-CoV-2 (PCR) (NEGATIVE) 12/23/23 12/23/23 12/23/23 Range/Units 05:24 05:24 06:14 WBC 13.9 H (4.0-10.5) x10^3/uL RBC 3.91 L (4.1-5.6) x10^6/uL Hgb 11.7 L (12.5-18.0) g/dL Hct 34.2 L (42-50) % MCV 87.5 (78-100) fL MCH 29.9 (26-32) pg MCHC 34.2 (32-36) g/dL RDW 13.5 (11.5-14.0) % Plt Count 265 (150-450) x10^3/uL MPV 10.9 (7.5-11.0) fL Gran % (36.0-66.0) % Immature Gran % (Auto) (0.00-0.4) % Nucleat RBC Rel Count (0.00-0.1) % Eos # (Auto) (0-0.5) x10^3/uL Immature Gran # (Auto) (0.00-0.03) x10^3u/L Absolute Lymphs (auto) (1.0-4.6) x10^3/uL Absolute Monos (auto) (0.0-1.3) x10^3/uL Absolute Nucleated RBC (0.00-0.01) x10^3u/L Lymphocytes % (24.0-44.0) % Monocytes % (0.0-12.0) % Eosinophils % (0.00-5.0) % Basophils % (0.0-0.4) % Absolute Granulocytes (1.4-6.9) x10^3/uL Basophils # (0-0.4) x10^3/uL Puncture Site pCO2 (35-45) mmHg pO2 (75-100) mmHg Base Excess (-2.0-2.0) O2 Saturation (94-100) g/dF ABG pH (7.35-7.45) ABG HCO3 (22-28) ABG O2 Sat (Measured) (95-100) % Tone Test A-a Gradient a/A Ratio Hemoglobin Carboxyhemoglobin (0.0-6.9) % THgb Methemoglobin (1.4-1.5) % Temperature C POC O2 Flow Rate % Sodium 145 (135-145) mmol/L Potassium 4.4 (3.5-5.1) mmol/L Chloride 116 H (98-107) mmol/L Carbon Dioxide 18 L (22-30) mmol/L Anion Gap 15.4 H (5-15) MEQ/L BUN 46 H (9-20) mg/dL Creatinine 1.44 H (0.66-1.25) mg/dL Estimated GFR 54.3 ML/MIN Glucose 142 H (74-106) mg/dL POC Glucometer 173 H (74 to 106) mg/dL Hemoglobin A1c (4.5-6.0) % Lactic Acid (0.4-2.0) Calcium 9.4 (8.4-10.2) mg/dL Phosphorus (2.5-4.5) mg/dL Magnesium (1.6-2.3) mg/dL Total Bilirubin 1.60 H (0.2-1.3) mg/dL Direct Bilirubin 0.2 (0.0-0.4) mg/dL AST 18 (17-59) U/L ALT 20 (0-50) U/L Alkaline Phosphatase 78 (38-126) U/L Troponin I (0.000-0.034) ng/mL Serum Total Protein 6.7 (6.3-8.2) g/dL Albumin 4.1 (3.5-5.0) g/dL Amylase (30-110) U/L Lipase (23-300) U/L Urine Color (Yellow) Urine Appearance (Clear) Urine pH (4.6-8.0) Ur Specific [place] (1.005-1.030) Urine Protein (Negative) Urine Glucose (UA) (Negative) mg/dL Urine Ketones (Negative) Urine Blood (Negative) Urine Nitrite (Negative) Urine Bilirubin (Negative) Urine Urobilinogen (0.2) mg/dL Ur Leukocyte Esterase (Negative) U Hyaline Cast (Auto) (0-2) /LPF Urine Microscopic RBC (0-5) /HPF Urine Microscopic WBC (0-5) /HPF Ur Epithelial Cells (None Seen) /HPF Urine Bacteria (None Seen) /HPF Urine Culture Reflexed (NO) Influenza Type A Ag (NEGATIVE) Influenza Type B Ag (NEGATIVE) RSV (PCR) (NEGATIVE) SARS-CoV-2 (PCR) (NEGATIVE) 12/23/23 12/23/23 12/23/23 Range/Units 07:13 08:00 09:04 WBC (4.0-10.5) x10^3/uL RBC (4.1-5.6) x10^6/uL Hgb (12.5-18.0) g/dL Hct (42-50) % MCV (78-100) fL MCH (26-32) pg MCHC (32-36) g/dL RDW (11.5-14.0) % Plt Count (150-450) x10^3/uL MPV (7.5-11.0) fL Gran % (36.0-66.0) % Immature Gran % (Auto) (0.00-0.4) % Nucleat RBC Rel Count (0.00-0.1) % Eos # (Auto) (0-0.5) x10^3/uL Immature Gran # (Auto) (0.00-0.03) x10^3u/L Absolute Lymphs (auto) (1.0-4.6) x10^3/uL Absolute Monos (auto) (0.0-1.3) x10^3/uL Absolute Nucleated RBC (0.00-0.01) x10^3u/L Lymphocytes % (24.0-44.0) % Monocytes % (0.0-12.0) % Eosinophils % (0.00-5.0) % Basophils % (0.0-0.4) % Absolute Granulocytes (1.4-6.9) x10^3/uL Basophils # (0-0.4) x10^3/uL Puncture Site pCO2 (35-45) mmHg pO2 (75-100) mmHg Base Excess (-2.0-2.0) O2 Saturation (94-100) g/dF ABG pH (7.35-7.45) ABG HCO3 (22-28) ABG O2 Sat (Measured) (95-100) % Tone Test A-a Gradient a/A Ratio Hemoglobin Carboxyhemoglobin (0.0-6.9) % THgb Methemoglobin (1.4-1.5) % Temperature C POC O2 Flow Rate % Sodium (135-145) mmol/L Potassium (3.5-5.1) mmol/L Chloride (98-107) mmol/L Carbon Dioxide (22-30) mmol/L Anion Gap (5-15) MEQ/L BUN (9-20) mg/dL Creatinine (0.66-1.25) mg/dL Estimated GFR ML/MIN Glucose (74-106) mg/dL POC Glucometer 156 H 200 H 269 H (74 to 106) mg/dL Hemoglobin A1c (4.5-6.0) % Lactic Acid (0.4-2.0) Calcium (8.4-10.2) mg/dL Phosphorus (2.5-4.5) mg/dL Magnesium (1.6-2.3) mg/dL Total Bilirubin (0.2-1.3) mg/dL Direct Bilirubin (0.0-0.4) mg/dL AST (17-59) U/L ALT (0-50) U/L Alkaline Phosphatase (38-126) U/L Troponin I (0.000-0.034) ng/mL Serum Total Protein (6.3-8.2) g/dL Albumin (3.5-5.0) g/dL Amylase (30-110) U/L Lipase (23-300) U/L Urine Color (Yellow) Urine Appearance (Clear) Urine pH (4.6-8.0) Ur Specific [place] (1.005-1.030) Urine Protein (Negative) Urine Glucose (UA) (Negative) mg/dL Urine Ketones (Negative) Urine Blood (Negative) Urine Nitrite (Negative) Urine Bilirubin (Negative) Urine Urobilinogen (0.2) mg/dL Ur Leukocyte Esterase (Negative) U Hyaline Cast (Auto) (0-2) /LPF Urine Microscopic RBC (0-5) /HPF Urine Microscopic WBC (0-5) /HPF Ur Epithelial Cells (None Seen) /HPF Urine Bacteria (None Seen) /HPF Urine Culture Reflexed (NO) Influenza Type A Ag (NEGATIVE) Influenza Type B Ag (NEGATIVE) RSV (PCR) (NEGATIVE) SARS-CoV-2 (PCR) (NEGATIVE) 12/23/23 12/23/23 12/23/23 Range/Units 09:43 10:00 10:05 WBC (4.0-10.5) x10^3/uL RBC (4.1-5.6) x10^6/uL Hgb (12.5-18.0) g/dL Hct (42-50) % MCV (78-100) fL MCH (26-32) pg MCHC (32-36) g/dL RDW (11.5-14.0) % Plt Count (150-450) x10^3/uL MPV (7.5-11.0) fL Gran % (36.0-66.0) % Immature Gran % (Auto) (0.00-0.4) % Nucleat RBC Rel Count (0.00-0.1) % Eos # (Auto) (0-0.5) x10^3/uL Immature Gran # (Auto) (0.00-0.03) x10^3u/L Absolute Lymphs (auto) (1.0-4.6) x10^3/uL Absolute Monos (auto) (0.0-1.3) x10^3/uL Absolute Nucleated RBC (0.00-0.01) x10^3u/L Lymphocytes % (24.0-44.0) % Monocytes % (0.0-12.0) % Eosinophils % (0.00-5.0) % Basophils % (0.0-0.4) % Absolute Granulocytes (1.4-6.9) x10^3/uL Basophils # (0-0.4) x10^3/uL Puncture Site pCO2 (35-45) mmHg pO2 (75-100) mmHg Base Excess (-2.0-2.0) O2 Saturation (94-100) g/dF ABG pH (7.35-7.45) ABG HCO3 (22-28) ABG O2 Sat (Measured) (95-100) % Tone Test A-a Gradient a/A Ratio Hemoglobin Carboxyhemoglobin (0.0-6.9) % THgb Methemoglobin (1.4-1.5) % Temperature C POC O2 Flow Rate % Sodium (135-145) mmol/L Potassium (3.5-5.1) mmol/L Chloride (98-107) mmol/L Carbon Dioxide (22-30) mmol/L Anion Gap (5-15) MEQ/L BUN (9-20) mg/dL Creatinine (0.66-1.25) mg/dL Estimated GFR ML/MIN Glucose (74-106) mg/dL POC Glucometer 223 H (74 to 106) mg/dL Hemoglobin A1c 10.37 H (4.5-6.0) % Lactic Acid (0.4-2.0) Calcium (8.4-10.2) mg/dL Phosphorus 3.4 (2.5-4.5) mg/dL Magnesium 2.1 (1.6-2.3) mg/dL Total Bilirubin (0.2-1.3) mg/dL Direct Bilirubin (0.0-0.4) mg/dL AST (17-59) U/L ALT (0-50) U/L Alkaline Phosphatase (38-126) U/L Troponin I (0.000-0.034) ng/mL Serum Total Protein (6.3-8.2) g/dL Albumin (3.5-5.0) g/dL Amylase (30-110) U/L Lipase (23-300) U/L Urine Color (Yellow) Urine Appearance (Clear) Urine pH (4.6-8.0) Ur Specific [place] (1.005-1.030) Urine Protein (Negative) Urine Glucose (UA) (Negative) mg/dL Urine Ketones (Negative) Urine Blood (Negative) Urine Nitrite (Negative) Urine Bilirubin (Negative) Urine Urobilinogen (0.2) mg/dL Ur Leukocyte Esterase (Negative) U Hyaline Cast (Auto) (0-2) /LPF Urine Microscopic RBC (0-5) /HPF Urine Microscopic WBC (0-5) /HPF Ur Epithelial Cells (None Seen) /HPF Urine Bacteria (None Seen) /HPF Urine Culture Reflexed (NO) Influenza Type A Ag (NEGATIVE) Influenza Type B Ag (NEGATIVE) RSV (PCR) (NEGATIVE) SARS-CoV-2 (PCR) (NEGATIVE) 12/23/23 12/23/23 12/23/23 Range/Units 10:05 10:05 11:42 WBC 13.9 H (4.0-10.5) x10^3/uL RBC 3.77 L (4.1-5.6) x10^6/uL Hgb 11.3 L (12.5-18.0) g/dL Hct 33.8 L (42-50) % MCV 89.7 (78-100) fL MCH 30.0 (26-32) pg MCHC 33.4 (32-36) g/dL RDW 13.6 (11.5-14.0) % Plt Count 244 (150-450) x10^3/uL MPV 11.3 H (7.5-11.0) fL Gran % (36.0-66.0) % Immature Gran % (Auto) (0.00-0.4) % Nucleat RBC Rel Count (0.00-0.1) % Eos # (Auto) (0-0.5) x10^3/uL Immature Gran # (Auto) (0.00-0.03) x10^3u/L Absolute Lymphs (auto) (1.0-4.6) x10^3/uL Absolute Monos (auto) (0.0-1.3) x10^3/uL Absolute Nucleated RBC (0.00-0.01) x10^3u/L Lymphocytes % (24.0-44.0) % Monocytes % (0.0-12.0) % Eosinophils % (0.00-5.0) % Basophils % (0.0-0.4) % Absolute Granulocytes (1.4-6.9) x10^3/uL Basophils # (0-0.4) x10^3/uL Puncture Site pCO2 (35-45) mmHg pO2 (75-100) mmHg Base Excess (-2.0-2.0) O2 Saturation (94-100) g/dF ABG pH (7.35-7.45) ABG HCO3 (22-28) ABG O2 Sat (Measured) (95-100) % Tone Test A-a Gradient a/A Ratio Hemoglobin Carboxyhemoglobin (0.0-6.9) % THgb Methemoglobin (1.4-1.5) % Temperature C POC O2 Flow Rate % Sodium 142 (135-145) mmol/L Potassium 4.7 (3.5-5.1) mmol/L Chloride 112 H (98-107) mmol/L Carbon Dioxide 20 L (22-30) mmol/L Anion Gap 14.6 (5-15) MEQ/L BUN 43 H (9-20) mg/dL Creatinine 1.35 H (0.66-1.25) mg/dL Estimated GFR 58.6 ML/MIN Glucose 267 H (74-106) mg/dL POC Glucometer 319 H (74 to 106) mg/dL Hemoglobin A1c (4.5-6.0) % Lactic Acid (0.4-2.0) Calcium 9.1 (8.4-10.2) mg/dL Phosphorus (2.5-4.5) mg/dL Magnesium (1.6-2.3) mg/dL Total Bilirubin 1.60 H (0.2-1.3) mg/dL Direct Bilirubin 0.1 (0.0-0.4) mg/dL AST 17 (17-59) U/L ALT 18 (0-50) U/L Alkaline Phosphatase 78 (38-126) U/L Troponin I (0.000-0.034) ng/mL Serum Total Protein 6.5 (6.3-8.2) g/dL Albumin 3.9 (3.5-5.0) g/dL Amylase (30-110) U/L Lipase (23-300) U/L Urine Color (Yellow) Urine Appearance (Clear) Urine pH (4.6-8.0) Ur Specific [place] (1.005-1.030) Urine Protein (Negative) Urine Glucose (UA) (Negative) mg/dL Urine Ketones (Negative) Urine Blood (Negative) Urine Nitrite (Negative) Urine Bilirubin (Negative) Urine Urobilinogen (0.2) mg/dL Ur Leukocyte Esterase (Negative) U Hyaline Cast (Auto) (0-2) /LPF Urine Microscopic RBC (0-5) /HPF Urine Microscopic WBC (0-5) /HPF Ur Epithelial Cells (None Seen) /HPF Urine Bacteria (None Seen) /HPF Urine Culture Reflexed (NO) Influenza Type A Ag (NEGATIVE) Influenza Type B Ag (NEGATIVE) RSV (PCR) (NEGATIVE) SARS-CoV-2 (PCR) (NEGATIVE) 12/23/23 Range/Units 12:10 WBC 13.4 H (4.0-10.5) x10^3/uL RBC 3.80 L (4.1-5.6) x10^6/uL Hgb 11.2 L (12.5-18.0) g/dL Hct 34.1 L (42-50) % MCV 89.7 (78-100) fL MCH 29.5 (26-32) pg MCHC 32.8 (32-36) g/dL RDW 13.7 (11.5-14.0) % Plt Count 227 (150-450) x10^3/uL MPV 10.4 (7.5-11.0) fL Gran % (36.0-66.0) % Immature Gran % (Auto) (0.00-0.4) % Nucleat RBC Rel Count (0.00-0.1) % Eos # (Auto) (0-0.5) x10^3/uL Immature Gran # (Auto) (0.00-0.03) x10^3u/L Absolute Lymphs (auto) (1.0-4.6) x10^3/uL Absolute Monos (auto) (0.0-1.3) x10^3/uL Absolute Nucleated RBC (0.00-0.01) x10^3u/L Lymphocytes % (24.0-44.0) % Monocytes % (0.0-12.0) % Eosinophils % (0.00-5.0) % Basophils % (0.0-0.4) % Absolute Granulocytes (1.4-6.9) x10^3/uL Basophils # (0-0.4) x10^3/uL Puncture Site pCO2 (35-45) mmHg pO2 (75-100) mmHg Base Excess (-2.0-2.0) O2 Saturation (94-100) g/dF ABG pH (7.35-7.45) ABG HCO3 (22-28) ABG O2 Sat (Measured) (95-100) % Tone Test A-a Gradient a/A Ratio Hemoglobin Carboxyhemoglobin (0.0-6.9) % THgb Methemoglobin (1.4-1.5) % Temperature C POC O2 Flow Rate % Sodium (135-145) mmol/L Potassium (3.5-5.1) mmol/L Chloride (98-107) mmol/L Carbon Dioxide (22-30) mmol/L Anion Gap (5-15) MEQ/L BUN (9-20) mg/dL Creatinine (0.66-1.25) mg/dL Estimated GFR ML/MIN Glucose (74-106) mg/dL POC Glucometer (74 to 106) mg/dL Hemoglobin A1c (4.5-6.0) % Lactic Acid (0.4-2.0) Calcium (8.4-10.2) mg/dL Phosphorus (2.5-4.5) mg/dL Magnesium (1.6-2.3) mg/dL Total Bilirubin (0.2-1.3) mg/dL Direct Bilirubin (0.0-0.4) mg/dL AST (17-59) U/L ALT (0-50) U/L Alkaline Phosphatase (38-126) U/L Troponin I (0.000-0.034) ng/mL Serum Total Protein (6.3-8.2) g/dL Albumin (3.5-5.0) g/dL Amylase (30-110) U/L Lipase (23-300) U/L Urine Color (Yellow) Urine Appearance (Clear) Urine pH (4.6-8.0) Ur Specific [place] (1.005-1.030) Urine Protein (Negative) Urine Glucose (UA) (Negative) mg/dL Urine Ketones (Negative) Urine Blood (Negative) Urine Nitrite (Negative) Urine Bilirubin (Negative) Urine Urobilinogen (0.2) mg/dL Ur Leukocyte Esterase (Negative) U Hyaline Cast (Auto) (0-2) /LPF Urine Microscopic RBC (0-5) /HPF Urine Microscopic WBC (0-5) /HPF Ur Epithelial Cells (None Seen) /HPF Urine Bacteria (None Seen) /HPF Urine Culture Reflexed (NO) Influenza Type A Ag (NEGATIVE) Influenza Type B Ag (NEGATIVE) RSV (PCR) (NEGATIVE) SARS-CoV-2 (PCR) (NEGATIVE) Micro Results-Entire Visit: Accuchecks Date 12/23/23 Date 12/23/23 Date 12/23/23 Date 12/23/23 Date 12/23/23 Time 09:00 Time 08:00 Time 07:15 - Radiology Exams Ordered Rad Exams-Entire Visit: Radiology Procedures Category Date Time Status ABDOMEN AND PELVIS W/0 CONTRAS [CT] Stat Exams 12/22/23 14:31 Completed Discharge Exam General Appearance: no apparent distress Neurologic Exam: alert, oriented x 3, cooperative Eye Exam: PERRL Ears, Nose, Throat Exam: normal ENT inspection Neck Exam: normal inspection Respiratory Exam: normal breath sounds, lungs clear Cardiovascular Exam: regular rate/rhythm, normal heart sounds Gastrointestinal/Abdomen Exam: soft, normal bowel sounds Male Genitalia Exam: deferred Rectal Exam: deferred Back Exam: normal inspection Extremity Exam: normal inspection Skin Exam: normal color Final Diagnosis/Problem List - Final Discharge Diagnosis/Problem (1) DKA (diabetic ketoacidoses) Current Visit: Yes Status: Acute Code(s): E11.10 - TYPE 2 DIABETES MELLITUS WITH KETOACIDOSIS WITHOUT COMA (2) SYED (acute kidney injury) Current Visit: Yes Status: Acute Code(s): N17.9 - ACUTE KIDNEY FAILURE, UNSPECIFIED (3) Abdominal pain Current Visit: Yes Status: Acute Code(s): R10.9 - UNSPECIFIED ABDOMINAL PAIN (4) Hyperkalemia Current Visit: Yes Status: Chronic Code(s): E87.5 - HYPERKALEMIA (5) Seizure disorder Current Visit: Yes Status: Chronic Code(s): G40.909 - EPILEPSY, UNSP, NOT INTRACTABLE, WITHOUT STATUS EPILEPTICUS (6) IDDM (insulin dependent diabetes mellitus) Current Visit: No Status: Acute Code(s): [id number] - (7) Peripheral neuropathy Current Visit: Yes Status: Chronic Code(s): G62.9 - POLYNEUROPATHY, UNSPECIFIED - Discharge Disposition: Home, Self-Care Condition: Fair Prescriptions: Continue Insulin Aspart [NovoLOG Insulin] 1 units SQ UD Insulin Glargine [Lantus Insulin] 35 units SQ QAM Ascorbic Acid 500 mg [Vitamin C 500 MG] 1,000 mg PO DAILY Gabapentin 600 mg PO TID Aspirin EC 81 mg [Ecotrin 81 mg] 81 mg PO DAILY Nitroglycerin 0.4 mg Tablet [Nitrostat 0.4 MG Tablet] 0.4 mg PO UD Instructions: Diabetic Ketoacidosis (DC) Follow up with: RUSTY ORTIZ MD [Primary Care Provider] - 12/30/23 2:00 pm Forms: Discharge Instructions
[2023-12-23] MEDS: ECOTRIN 81 MG PO SCH (14:29)
[2023-12-23] MEDS: NEURONTIN PO SCH (14:29)
[2023-12-23] MEDS: Vitamin C 500 MG PO SCH (14:29)
[2023-12-23] MEDS: Sodium Chloride 0.9% 1000 ML 1,000 ML IV SCH (15:08)
[2023-12-23 16:47] LABS: Hematocrit 33.5 % (42-50); Hemoglobin 11.2 g/dL (12.5-18.0); Mean Cell Volume 89.8 fL (78-100); Mean Corpuscular Hgb Concent. 33.4 g/dL (32-36); Mean Platelet Volume 10.6 fL (7.5-11.0); Platelet Count 226 x10^3/uL (150-450); Red Blood Count 3.73 x10^6/uL (4.1-5.6); Red Cell Distribution Width 13.7 % (11.5-14.0); White Blood Count 13.9 x10^3/uL (4.0-10.5)
[2023-12-23 16:54] VITALS: BP 157/80; RESP 15; TEMP 97.2; O2SAT 97
[2023-12-23 16:58] VITALS: PULSE 71
[2023-12-23 17:04] LABS: ALBUMIN 3.9 g/dL (3.5-5.0); ANION GAP 12.3 MEQ/L (5-15); BILIRUBIN,TOTAL 1.6 mg/dL (0.2-1.3); Creatinine 1 1.22 mg/dL (0.66-1.25); Direct Bilirubin 0.1 mg/dL (0.0-0.4); EST GLOMERULAR FILTRATION RATE 66.2 ML/MIN; MAGNESIUM 2.1 mg/dL (1.6-2.3); PHOSPHOROUS 3.2 mg/dL (2.5-4.5); Potassium 3.9 mmol/L (3.5-5.1); Total Protein 6.5 g/dL (6.3-8.2)
[2023-12-24] MEDS ORDERED: Lantus Insulin SQ SCH (08:00)
== END 2023-12-23 18:01 | disposition home or self-care (01) | DRG 638 ==
LOC: ED 13:59 → ICU 17:55
PROVIDERS: ADMIT Internal Medicine; ATTEND Internal Medicine
DX: E11.10 Type 2 diabetes mellitus with ketoacidosis without coma (principal); N17.9 Acute kidney failure, unspecified; R10.9 Unspecified abdominal pain; E87.5 Hyperkalemia; G40.909 Epilepsy, unspecified, not intractable, without status epilepticus; E11.42 Type 2 diabetes mellitus with diabetic polyneuropathy; Z79.899 Other long term (current) drug therapy; Z20.828 Contact with and (suspected) exposure to other viral communicable diseases
CPT/HCPCS: 0241U; 36000; 36415; 36600; 74176; 80048; 80053; 80076; 81001; 82150; 82375; 82803; 82947; 83036; 83605; 83690; 83735; 84100; 84484; 85025; 85027; 93005; 96360; 96361; 96374; 96375; 99284; 99291; J1650; J1815; J1817; J2405; Q3014; A9270-GY

== ENCOUNTER 2024-03-07 03:00 | Observation (INO) | payer SELFPAY ==
--- NOTE | 2024-03-07 03:48 | ERPHSYRPT ---
- History of Present Illness Time Seen by Provider: 03/07/24 03:30 Historian: EMS, old records Exam Limitations: clinical condition Patient Subjective Stated Complaint: pt reports that started at 1900 last night he started experiencing nausea with intermittent vomiting. pt is unable to verbalize what emesis looks like, how many times he has vomited, how often he has vomited. Triage Nursing Assessment: pt brought to room 9 via wheelchair then transfered self independently to ED cot with slow steady gait. pt is alert and oriented times three, able to speak in complete sentences, able to move all extremities, and with resp even and unlabored on RA without use of accessory muscles. skin is warm, dry, pink, and intact with exception of left foot/ toe dressing that is in place s/p toe amputation at [facility] earlier this month. abd soft, flat, nontender to palpation, nondistended, and with positive bowel sounds in all quadrants. pt unable to verbalize when last BM was but is able to state no diarrhea or constipation. pt denies pain, anderson, sob, difficulty breathing, lightheadedness, dizziness, or other complaints other than nausea and vomiting. Physician History: This is a 63-year-old white male patient of Dr. Saunders who presents to the emergency department with intermittent nausea and vomiting that began last evening approximately 7 PM. Patient is an insulin-dependent diabetic. He has intermittently been vomiting even until this morning. He was mildly lethargic and family was concerned so they brought him in by private vehicle. His blood sugar on arrival was 415 by Accu-Chek. Patient recently had left foot toe amputations. He denies chest pain. He denies shortness of breath. He does have mild abdominal pain that is diffuse, generalized Timing/Duration: yesterday, intermittent, worse Activities at Onset: none Quality: cramping Abdominal Pain Onset Location: generalized abdomen Pain Radiation: no radiation Severity of Pain-Max: mild Severity of Pain-Current: mild Modifying Factors: Improves With: vomiting Associated Symptoms: loss of appetite, nausea, vomiting, weakness, No chest pain, No shortness of breath Previous symptoms: same symptoms as today, no recent treatment Allergies/Adverse Reactions: codeine Adverse Reaction (Severe, Verified 03/07/24 03:07) Vomiting hydrocodone bitartrate [From Vicodin] Adverse Reaction (Severe, Verified 03/07/24 03:07) Vomiting propoxyphene [From Darvocet-N 100] Adverse Reaction (Verified 03/07/24 03:07) Home Medications: Insulin Aspart [NovoLOG Insulin] 1 units SQ UD 05/29/16 [History] Insulin Glargine [Lantus Insulin] 50 units SQ QAM 03/25/19 [History] Gabapentin 600 mg PO TID 04/01/23 [History] Hx Tetanus, Diphtheria Vaccination/Date Given: Yes Hx Influenza Vaccination/Date Given: No Hx Pneumococcal Vaccination/Date Given: No Immunizations Up to Date: Yes Travel Risk - International Travel Have you traveled outside of the country in past 3 weeks: No - Emerging Infectious Disease Are you exhibiting symptoms associated with any current EIDs: Yes Symptoms: Abdominal Pain, Vomitting - Review of Systems Constitutional: No Symptoms Eyes: No Symptoms Ears, Nose, & Throat: No Symptoms Respiratory: No Symptoms Cardiac: No Symptoms Abdominal/Gastrointestinal: Abdominal Pain, Nausea, Vomiting, Appetite Changes Genitourinary Symptoms: No Symptoms Musculoskeletal: No Symptoms Skin: No Symptoms Neurological: Lethargy (Mild) Psychological: No Symptoms Endocrine: No Symptoms Hematologic/Lymphatic: No Symptoms Immunological/Allergic: No Symptoms All Other Systems: Reviewed and Negative - Past Medical History Pertinent Past Medical History: Yes Neurological History: Seizures ENT History: No Pertinent History Cardiac History: No Pertinent History Respiratory History: No Pertinent History Endocrine Medical History: Diabetes Type II Musculoskeletal History: No Pertinent History GI Medical History: No Pertinent History History: No Pertinent History Psycho-Social History: No Pertinent History Male Reproductive Disorders: No Pertinent History Other Medical History: FX L LEG AND FOOT subsequent infection. diarrhea x3 weeks, was hospitalized for gi sx. gangrene, sepsis 2014 - Past Surgical History Past Surgical History: Yes Neuro Surgical History: No Pertinent History Cardiac: No Pertinent History Respiratory: No Pertinent History Gastrointestinal: Cholecystectomy, Hernia Repair Genitourinary: No Pertinent History Musculoskeletal: Orthopedic Surgery Male Surgical History: No Pertinent History Other Surgical History: right femur fixed at age 15. left foot broke at age 20. left leg and foot surgery ,,I&D of left foot, polyps removed - Social History Smoking Status: Never smoker How long have you smoked: 1 yr Exposure to second hand smoke: No Drug Use: none Patient Lives Alone: No - Nursing Vital Signs Nursing Vital Signs: Initial Vital Signs Temperature 98.8 F 05/21/24 03:09 Pulse Rate 111 H 03/07/24 03:09 Respiratory Rate 16 03/07/24 03:09 Blood Pressure 157/96 03/07/24 03:09 O2 Sat by Pulse Oximetry 97 03/07/24 03:09 Pain Scale Pain Intensity 6 - Physical Exam General Appearance: mild distress, alert, lethargy (Mildeasily arousable) Eye Exam: PERRL/EOMI, eyes nml inspection Ears, Nose, Throat Exam: dry mucous membranes Neck Exam: normal inspection, non-tender, supple, full range of motion Respiratory Exam: normal breath sounds, lungs clear, respiratory distress, airway intact, No chest tenderness Cardiovascular Exam: tachycardia Gastrointestinal/Abdomen Exam: soft, normal bowel sounds, tenderness (Mild diffuse to palpation), guarding, No rebound Rectal Exam: not done Back Exam: normal inspection, normal range of motion, No CVA tenderness, No vertebral tenderness Extremity Exam: normal range of motion, amputations (Left footseveral toes amputated. Bandages still in place) Neurologic Exam: oriented x 3, cooperative, dependency director II-XII nml as tested, sensation nml Skin Exam: normal color, warm, dry Lymphatic Exam: No adenopathy SpO2 Interpretation: normal SpO2: 97 O2 Delivery: Room Air - Course Nursing assessment & vital signs reviewed: Yes EKG Interpreted by Me: RATE ([id number]), Sinus Tach, NORMAL AXIS, NORMAL INTERVALS, NORMAL QRS, Other (No acute ischemic changes on today's twelve-lead EKG. This is compared to a twelve-lead EKG dated 12/22/2023 where the heart rate was 99 bpm and was in normal sinus rhythm without evidence of ischemia.) Ordered Tests: Active Orders 24 hr Category Date Time Status EKG-ER Only STAT Care 03/07/24 05:02 Active IV Insertion STAT Care 03/07/24 03:48 Active ABDOMEN AND PELVIS W/0 CONTRAS [CT] Stat Exams 03/07/24 03:48 Completed AMYLASE Stat Lab 03/07/24 03:45 Completed CBC W DIFF Stat Lab 03/07/24 03:45 Completed CMP Stat Lab 03/07/24 03:45 Completed LIPASE Stat Lab 03/07/24 03:45 Completed Lactic Acid Stat Lab 03/07/24 03:55 Completed MAG [MAGNESIUM] Stat Lab 03/07/24 03:45 Completed POCT GLUCOSE Stat Lab 03/07/24 03:31 Completed POCT GLUCOSE Stat Lab 03/07/24 04:59 Completed POCT GLUCOSE Stat Lab 03/07/24 05:38 Completed TROPONIN Q4H Lab 03/07/24 03:45 Completed TROPONIN Q4H Lab 03/07/24 09:15 Ordered TROPONIN Q4H Lab 03/07/24 13:15 Ordered UA W/RFX UR CULTURE Stat Lab 03/07/24 05:14 Completed Medication Summary Generic Name Dose Route Start Last Admin Trade Name Freq PRN Reason Stop Dose Admin INSULIN REGULAR IN 0.9 % NACL 100 unit in 100 mls @ 5 mls/hr 03/07/24 05:46 Myxredlin 100 Unit/100 Ml Bag IV 04/06/24 05:45 .Q20H PRN HYPERGLYCEMIA Protocol Discontinued Medications Generic Name Dose Route Start Last Admin Trade Name Freq PRN Reason Stop Dose Admin Sodium Chloride 1,000 mls @ 999 mls/hr 03/07/24 03:48 03/07/24 05:03 Sodium Chloride 0.9% 1000 Ml IV 03/07/24 04:48 Infused .Q1H1M STA Infusion Sodium Chloride Confirm 03/07/24 03:53 Sodium Chloride 0.9% 1000 Ml Administered 03/07/24 03:54 Dose 1,000 mls @ ud .ROUTE .STK-MED ONE Lactated Ringer's 1,000 mls @ 999 mls/hr 03/07/24 04:19 03/07/24 05:03 Lactated Ringers IV 03/07/24 05:19 999 mls/hr .Q1H1M ONE Administration Lactated Ringer's Confirm 03/07/24 04:30 Lactated Ringers Administered 03/07/24 04:31 Dose 1,000 mls @ ud IV .STK-MED ONE Insulin Human Regular 18 unit 03/07/24 04:20 03/07/24 04:43 Insulin Regular, Human 1 Unit IV 03/07/24 04:21 18 unit STAT ONE Administration Insulin Human Regular Confirm 03/07/24 04:29 Insulin Regular, Human 1 Unit Administered 03/07/24 04:30 Dose 10 unit .ROUTE .STK-MED ONE Insulin Human Regular Confirm 03/07/24 04:41 Insulin Regular, Human 1 Unit Administered 03/07/24 04:42 Dose 8 unit .ROUTE .STK-MED ONE Morphine Sulfate Confirm 03/07/24 05:01 Morphine Sulfate 4 Mg/Ml Injection Administered 03/07/24 05:02 Dose 4 mg .ROUTE .STK-MED ONE Morphine Sulfate 4 mg 03/07/24 05:02 03/07/24 05:03 Morphine Sulfate 4 Mg/Ml Injection IV 03/07/24 05:03 4 mg STAT ONE Administration Ondansetron HCl 4 mg 03/07/24 03:48 03/07/24 03:56 Ondansetron Hcl 4 Mg/2 Ml Vial IV 03/07/24 03:49 4 mg STAT ONE Administration Ondansetron HCl Confirm 03/07/24 03:53 Ondansetron Hcl 4 Mg/2 Ml Vial Administered 03/07/24 03:54 Dose 4 mg .ROUTE .STK-MED ONE Lab/Rad Data: Laboratory Result Diagrams 03/07/24 03:45 03/07/24 03:45 Laboratory Results 03/07/24 03/07/24 03/07/24 Range/Units 05:38 05:14 04:59 WBC (4.0-10.5) x10^3/uL RBC (4.1-5.6) x10^6/uL Hgb (12.5-18.0) g/dL Hct (42-50) % MCV (78-100) fL MCH (26-32) pg MCHC (32-36) g/dL RDW (11.5-14.0) % Plt Count (150-450) x10^3/uL MPV (7.5-11.0) fL Gran % (36.0-66.0) % Immature Gran % (Auto) (0.00-0.4) % Nucleat RBC Rel Count (0.00-0.1) % Eos # (Auto) (0-0.5) x10^3/uL Immature Gran # (Auto) (0.00-0.03) x10^3u/L Absolute Lymphs (auto) (1.0-4.6) x10^3/uL Absolute Monos (auto) (0.0-1.3) x10^3/uL Absolute Nucleated RBC (0.00-0.01) x10^3u/L Lymphocytes % (24.0-44.0) % Monocytes % (0.0-12.0) % Eosinophils % (0.00-5.0) % Basophils % (0.0-0.4) % Absolute Granulocytes (1.4-6.9) x10^3/uL Basophils # (0-0.4) x10^3/uL Sodium (135-145) mmol/L Potassium (3.5-5.1) mmol/L Chloride (98-107) mmol/L Carbon Dioxide (22-30) mmol/L Anion Gap (5-15) MEQ/L BUN (9-20) mg/dL Creatinine (0.66-1.25) mg/dL Estimated GFR ML/MIN Glucose (74-106) mg/dL POC Glucometer 473 H 523 H* (74 to 106) mg/dL Lactic Acid (0.4-2.0) Calcium (8.4-10.2) mg/dL Magnesium (1.6-2.3) mg/dL Total Bilirubin (0.2-1.3) mg/dL AST (17-59) U/L ALT (0-50) U/L Alkaline Phosphatase (38-126) U/L Troponin I (0.000-0.033) ng/mL Serum Total Protein (6.3-8.2) g/dL Albumin (3.5-5.0) g/dL Amylase (30-110) U/L Lipase (23-300) U/L Urine Color Yellow (Yellow) Urine Appearance Clear (Clear) Urine pH 5.5 (4.6-8.0) Ur Specific [place] 1.025 (1.005-1.030) Urine Protein 100 A (Negative) Urine Glucose (UA) >=1000 A (Negative) mg/dL Urine Ketones >=160 A (Negative) Urine Blood Negative (Negative) Urine Nitrite Negative (Negative) Urine Bilirubin Negative (Negative) Urine Urobilinogen 0.2 (0.2) mg/dL Ur Leukocyte Esterase Negative (Negative) U Hyaline Cast (Auto) 3-5 A (0-2) /LPF Urine Microscopic RBC 0-2 (0-5) /HPF Urine Microscopic WBC 0-2 (0-5) /HPF Ur Epithelial Cells None Seen (None Seen) /HPF Urine Bacteria None Seen (None Seen) /HPF Urine Culture Reflexed NO (NO) Influenza Type A Ag (NEGATIVE) Influenza Type B Ag (NEGATIVE) RSV (PCR) (NEGATIVE) SARS-CoV-2 (PCR) (NEGATIVE) 03/07/24 03/07/24 03/07/24 Range/Units 04:50 03:55 03:45 WBC (4.0-10.5) x10^3/uL RBC (4.1-5.6) x10^6/uL Hgb (12.5-18.0) g/dL Hct (42-50) % MCV (78-100) fL MCH (26-32) pg MCHC (32-36) g/dL RDW (11.5-14.0) % Plt Count (150-450) x10^3/uL MPV (7.5-11.0) fL Gran % (36.0-66.0) % Immature Gran % (Auto) (0.00-0.4) % Nucleat RBC Rel Count (0.00-0.1) % Eos # (Auto) (0-0.5) x10^3/uL Immature Gran # (Auto) (0.00-0.03) x10^3u/L Absolute Lymphs (auto) (1.0-4.6) x10^3/uL Absolute Monos (auto) (0.0-1.3) x10^3/uL Absolute Nucleated RBC (0.00-0.01) x10^3u/L Lymphocytes % (24.0-44.0) % Monocytes % (0.0-12.0) % Eosinophils % (0.00-5.0) % Basophils % (0.0-0.4) % Absolute Granulocytes (1.4-6.9) x10^3/uL Basophils # (0-0.4) x10^3/uL Sodium (135-145) mmol/L Potassium (3.5-5.1) mmol/L Chloride (98-107) mmol/L Carbon Dioxide (22-30) mmol/L Anion Gap (5-15) MEQ/L BUN (9-20) mg/dL Creatinine (0.66-1.25) mg/dL Estimated GFR ML/MIN Glucose (74-106) mg/dL POC Glucometer (74 to 106) mg/dL Lactic Acid 1.6 (0.4-2.0) Calcium (8.4-10.2) mg/dL Magnesium (1.6-2.3) mg/dL Total Bilirubin (0.2-1.3) mg/dL AST (17-59) U/L ALT (0-50) U/L Alkaline Phosphatase (38-126) U/L Troponin I < 0.012 (0.000-0.033) ng/mL Serum Total Protein (6.3-8.2) g/dL Albumin (3.5-5.0) g/dL Amylase (30-110) U/L Lipase (23-300) U/L Urine Color (Yellow) Urine Appearance (Clear) Urine pH (4.6-8.0) Ur Specific [place] (1.005-1.030) Urine Protein (Negative) Urine Glucose (UA) (Negative) mg/dL Urine Ketones (Negative) Urine Blood (Negative) Urine Nitrite (Negative) Urine Bilirubin (Negative) Urine Urobilinogen (0.2) mg/dL Ur Leukocyte Esterase (Negative) U Hyaline Cast (Auto) (0-2) /LPF Urine Microscopic RBC (0-5) /HPF Urine Microscopic WBC (0-5) /HPF Ur Epithelial Cells (None Seen) /HPF Urine Bacteria (None Seen) /HPF Urine Culture Reflexed (NO) Influenza Type A Ag NEGATIVE (NEGATIVE) Influenza Type B Ag NEGATIVE (NEGATIVE) RSV (PCR) NEGATIVE (NEGATIVE) SARS-CoV-2 (PCR) NEGATIVE (NEGATIVE) 03/07/24 03/07/24 03/07/24 Range/Units 03:45 03:45 03:45 WBC 11.6 H (4.0-10.5) x10^3/uL RBC 3.88 L (4.1-5.6) x10^6/uL Hgb 11.5 L (12.5-18.0) g/dL Hct 34.2 L (42-50) % MCV 88.1 (78-100) fL MCH 29.6 (26-32) pg MCHC 33.6 (32-36) g/dL RDW 13.0 (11.5-14.0) % Plt Count 280 (150-450) x10^3/uL MPV 11.0 (7.5-11.0) fL Gran % 85.8 H (36.0-66.0) % Immature Gran % (Auto) 0.3 (0.00-0.4) % Nucleat RBC Rel Count 0.0 (0.00-0.1) % Eos # (Auto) 0.01 (0-0.5) x10^3/uL Immature Gran # (Auto) 0.03 (0.00-0.03) x10^3u/L Absolute Lymphs (auto) 0.89 L (1.0-4.6) x10^3/uL Absolute Monos (auto) 0.57 (0.0-1.3) x10^3/uL Absolute Nucleated RBC 0.00 (0.00-0.01) x10^3u/L Lymphocytes % 7.7 L (24.0-44.0) % Monocytes % 4.9 (0.0-12.0) % Eosinophils % 0.1 (0.00-5.0) % Basophils % 1.2 (0.0-0.4) % Absolute Granulocytes 9.96 H (1.4-6.9) x10^3/uL Basophils # 0.14 (0-0.4) x10^3/uL Sodium 136 (135-145) mmol/L Potassium 5.2 H (3.5-5.1) mmol/L Chloride 99 (98-107) mmol/L Carbon Dioxide 15 L* (22-30) mmol/L Anion Gap 27.8 H (5-15) MEQ/L BUN 38 H (9-20) mg/dL Creatinine 1.53 H (0.66-1.25) mg/dL Estimated GFR 50.5 ML/MIN Glucose 558 H* (74-106) mg/dL POC Glucometer (74 to 106) mg/dL Lactic Acid (0.4-2.0) Calcium 10.3 H (8.4-10.2) mg/dL Magnesium 1.9 (1.6-2.3) mg/dL Total Bilirubin 1.40 H (0.2-1.3) mg/dL AST 17 (17-59) U/L ALT 14 (0-50) U/L Alkaline Phosphatase 98 (38-126) U/L Troponin I (0.000-0.033) ng/mL Serum Total Protein 7.5 (6.3-8.2) g/dL Albumin 4.4 (3.5-5.0) g/dL Amylase 64 (30-110) U/L Lipase 44 (23-300) U/L Urine Color (Yellow) Urine Appearance (Clear) Urine pH (4.6-8.0) Ur Specific [place] (1.005-1.030) Urine Protein (Negative) Urine Glucose (UA) (Negative) mg/dL Urine Ketones (Negative) Urine Blood (Negative) Urine Nitrite (Negative) Urine Bilirubin (Negative) Urine Urobilinogen (0.2) mg/dL Ur Leukocyte Esterase (Negative) U Hyaline Cast (Auto) (0-2) /LPF Urine Microscopic RBC (0-5) /HPF Urine Microscopic WBC (0-5) /HPF Ur Epithelial Cells (None Seen) /HPF Urine Bacteria (None Seen) /HPF Urine Culture Reflexed (NO) Influenza Type A Ag (NEGATIVE) Influenza Type B Ag (NEGATIVE) RSV (PCR) (NEGATIVE) SARS-CoV-2 (PCR) (NEGATIVE) 03/07/24 Range/Units 03:31 WBC (4.0-10.5) x10^3/uL RBC (4.1-5.6) x10^6/uL Hgb (12.5-18.0) g/dL Hct (42-50) % MCV (78-100) fL MCH (26-32) pg MCHC (32-36) g/dL RDW (11.5-14.0) % Plt Count (150-450) x10^3/uL MPV (7.5-11.0) fL Gran % (36.0-66.0) % Immature Gran % (Auto) (0.00-0.4) % Nucleat RBC Rel Count (0.00-0.1) % Eos # (Auto) (0-0.5) x10^3/uL Immature Gran # (Auto) (0.00-0.03) x10^3u/L Absolute Lymphs (auto) (1.0-4.6) x10^3/uL Absolute Monos (auto) (0.0-1.3) x10^3/uL Absolute Nucleated RBC (0.00-0.01) x10^3u/L Lymphocytes % (24.0-44.0) % Monocytes % (0.0-12.0) % Eosinophils % (0.00-5.0) % Basophils % (0.0-0.4) % Absolute Granulocytes (1.4-6.9) x10^3/uL Basophils # (0-0.4) x10^3/uL Sodium (135-145) mmol/L Potassium (3.5-5.1) mmol/L Chloride (98-107) mmol/L Carbon Dioxide (22-30) mmol/L Anion Gap (5-15) MEQ/L BUN (9-20) mg/dL Creatinine (0.66-1.25) mg/dL Estimated GFR ML/MIN Glucose (74-106) mg/dL POC Glucometer 415 H (74 to 106) mg/dL Lactic Acid (0.4-2.0) Calcium (8.4-10.2) mg/dL Magnesium (1.6-2.3) mg/dL Total Bilirubin (0.2-1.3) mg/dL AST (17-59) U/L ALT (0-50) U/L Alkaline Phosphatase (38-126) U/L Troponin I (0.000-0.033) ng/mL Serum Total Protein (6.3-8.2) g/dL Albumin (3.5-5.0) g/dL Amylase (30-110) U/L Lipase (23-300) U/L Urine Color (Yellow) Urine Appearance (Clear) Urine pH (4.6-8.0) Ur Specific [place] (1.005-1.030) Urine Protein (Negative) Urine Glucose (UA) (Negative) mg/dL Urine Ketones (Negative) Urine Blood (Negative) Urine Nitrite (Negative) Urine Bilirubin (Negative) Urine Urobilinogen (0.2) mg/dL Ur Leukocyte Esterase (Negative) U Hyaline Cast (Auto) (0-2) /LPF Urine Microscopic RBC (0-5) /HPF Urine Microscopic WBC (0-5) /HPF Ur Epithelial Cells (None Seen) /HPF Urine Bacteria (None Seen) /HPF Urine Culture Reflexed (NO) Influenza Type A Ag (NEGATIVE) Influenza Type B Ag (NEGATIVE) RSV (PCR) (NEGATIVE) SARS-CoV-2 (PCR) (NEGATIVE) - Progress Progress: improved, re-examined Progress Note: 03/07/24 04:05 My medical decision making and the assignment of moderate complexity to this patient's medical issue is based on review of the patient's past medical history, review of the most recent [facility] admission and discharge summary note, review of the patient's medication list, review of patient drug allergy list, history of present illness and physical findings on examination. The workup in the patient included placement of intravenous line, infusion of normal saline solution, CBC, CMP, lactic acid level, urinalysis, magnesium level, CT scan of the abdomen pelvis without contrast. Differential diagnosis includes DKA, urinary tract infection, dehydration, intra-abdominal abnormality 03/07/24 05:34 I interpreted the patient's laboratory data results. The patient is in DKA. We provided the patient with a bolus of intravenous insulin and have started the second liter of crystalloid. Patient has significant ketones in his urine. Patient began complaining of some chest pain. The twelve-lead EKG was perfo rmed. The results are within the body of the chart. No acute ischemic changes present. CT scan of the abdomen pelvis was interpreted by the radiologist and I reviewed the impression. The impression shows a small hiatal hernia. No acute appendicitis. There is aortoiliac atheromatous calcifications present. The remainder of the CT scan of the abdomen pelvis is unremarkable. 03/07/24 05:[address] Laughlin, our telehospitalist on-call at this time, I reviewed the patient history, presenting complaint, workup performed and results of that workup. We will place this patient inpatient in the ICU. Patient will be started on an insulin drip. Counseled pt/family regarding: lab results, diagnosis, rad results Medical Desision Making - Independent Historian Additional History obtained from: Family - Diagnostic Testing Diagnostic test were ordered, analyzed, and reviewed by me: Yes Radiological Interpretation: Reviewed by me, Teleradiologist Report - Risk of complications The pt has a high risk of morbidity or mortality based on: Decision regarding hospitilization or escalation of hosp level of care - Departure Departure Disposition: In-patient Admission Clinical Impression: DKA (diabetic ketoacidosis) Condition: Fair Critical Care Time: Yes Critical Care Time(excluding separately billable procedures): Critical 30-74 mins (45) Referrals: DIANA,RUSTY, MD [Primary Care Provider] - Follow up/PCP as directed
[2024-03-07 03:52] LABS: Absolute Neutrophil Ct (ANC) 9.96 x10^3/uL (1.4-6.9); BASOPHIL % 1.2 % (0.0-0.4); Basophil (Absolute #) 0.14 x10^3/uL (0-0.4); Eosinophil % 0.1 % (0.00-5.0); Eosinophil (Absolute #) 0.01 x10^3/uL (0-0.5); Hematocrit 34.2 % (42-50); Hemoglobin 11.5 g/dL (12.5-18.0); IMMATURE GRAN # 0.03 x10^3u/L (0.00-0.03); IMMATURE GRAN % 0.3 % (0.00-0.4); Lymphocyte (Absolute #) 0.89 x10^3/uL (1.0-4.6); Lymphocytes % 7.7 % (24.0-44.0); Mean Cell Volume 88.1 fL (78-100); Mean Corpuscular Hemoglobin 29.6 pg (26-32); Mean Corpuscular Hgb Concent. 33.6 g/dL (32-36); Monocyte (Absolute #) 0.57 x10^3/uL (0.0-1.3); Monocytes % 4.9 % (0.0-12.0); Neutrophil % 85.8 % (36.0-66.0); Platelet Count 280 x10^3/uL (150-450); Red Blood Count 3.88 x10^6/uL (4.1-5.6); White Blood Count 11.6 x10^3/uL (4.0-10.5)
[2024-03-07] MEDS ORDERED: Sodium Chloride 0.9% 1000 ML 1,000 ML ONE ×2 (03:53→06:34)
[2024-03-07] MEDS ORDERED: Zofran 4 MG/2 ML VIAL ONE (03:53)
[2024-03-07] MEDS: Zofran 4 MG/2 ML VIAL IV ONE (03:56)
[2024-03-07] MEDS: Sodium Chloride 0.9% 1000 ML 1,000 ML IV STA (03:56)
[2024-03-07 04:09] LABS: ALBUMIN 4.4 g/dL (3.5-5.0); ANION GAP 27.8 MEQ/L (5-15); BILIRUBIN,TOTAL 1.4 mg/dL (0.2-1.3); Calcium 10.3 mg/dL (8.4-10.2); Creatinine 1 1.53 mg/dL (0.66-1.25); EST GLOMERULAR FILTRATION RATE 50.5 ML/MIN; Potassium 5.2 mmol/L (3.5-5.1); Total Protein 7.5 g/dL (6.3-8.2)
[2024-03-07] MEDS ORDERED: HUMULIN R ONE ×2 (04:29→04:41)
[2024-03-07] MEDS ORDERED: Lactated Ringers 1,000 ML IV ONE (04:30)
[2024-03-07] MEDS: HUMULIN R IV ONE (04:43)
[2024-03-07] MEDS ORDERED: MORPHINE SULFATE 4 MG INJ ONE (05:01)
[2024-03-07] MEDS: MORPHINE SULFATE 4 MG INJ IV ONE (05:03)
[2024-03-07] MEDS: Lactated Ringers 1,000 ML IV ONE (05:03)
--- NOTE | 2024-03-07 05:22 | XRAY ---
CLINICAL HISTORY: ABD pain; N/V COMPARISON: None. TECHNIQUE: A CT scan of the abdomen and pelvis was performed without IV contrast. Coronal and sagittal reconstructive images were also obtained.One of the following dose reduction techniques was utilized for this exam.Automated exposure control, adjustment of the mA and/or kV according to patient size, and use of iterative reconstruction. FINDINGS: The liver is mildly enlarged measuring 18.5 cm. No focal or diffuse parenchymal abnormality. The intrahepatic biliary radicals and the bile ducts are normal. Cholecystectomy. Average sized spleen showing few small calcific foci likely old granulomas. No focal lesions. The pancreas shows fatty involutional changes. No masses. Clear rosy-pancreatic fat planes. The adrenal glands are unremarkable. The kidneys are normal in size and shape. No calculi or masses. No right hydronephrosis. Minimal fullness of the left renal pelvicalyceal system without any obvious visualized obstructing radiodense calculus. The ascending colon, the transverse colon, the descending colon, and the visualized small bowel loops are unremarkable. No CT evidence of acute appendicitis. A small hiatus hernia. The urinary bladder is unremarkable. The prostate was unremarkable. The rectosigmoid colon is unremarkable. Aorto-iliac atheromatous calcifiactions. No evidence of abdominopelvic lymphadenopathy. No ascites. A scan through the lower chest reveals bilateral lung thin subpleural atelectatic plates. Degenerative changes of the scanned spine. IMPRESSION: 1. Minimal fullness of the left renal pelvicalyceal system without any obvious visualized obstructing radiodense calculus. If needed, US follow-up is advised. 2. Mild hepatomegaly. Laboratory correlation is advised. 3. A small hiatus hernia. 4. The rest of the study was unremarkable. Electronically Signed by: Luis Freitas MD. (03/07/2024 05:18:24 EDT)
[2024-03-07 05:24] LABS: Appearance Clear (Clear); Bacteria None Seen /HPF (None Seen); Bilirubin Negative (Negative); Blood Negative (Negative); Epithelial Cells None Seen /HPF (None Seen); Glucose, Urine >=1000 mg/dL (Negative); Ketones >=160 (Negative); Leukocyte Esterase Negative (Negative); Nitrite Negative (Negative); Ph 5.5 (4.6-8.0); Protein,Urine Dip 100 (Negative); RBC 0-2 /HPF (0-5); Specific Gravity 1.025 (1.005-1.030); Urobilinogen 0.2 mg/dL (0.2); WBC 0-2 /HPF (0-5)
[2024-03-07 05:25] LABS: ADD URINE CULTURE? NO (NO)
[2024-03-07 05:39] LABS: INFLUENZA A NEGATIVE (NEGATIVE); INFLUENZA B NEGATIVE (NEGATIVE); RESPIRATORY SYNCTIAL VIRUS NEGATIVE (NEGATIVE); SARS-CoV-2 Xpert Express NEGATIVE (NEGATIVE)
[2024-03-07] MEDS: MYXREDLIN 100 UNIT/100 ML BAG 100 UNIT/100 ML PLAST..BAG IV PRN (06:30)
[2024-03-07] MEDS ORDERED: Compazine 10 MG/2 ML ONE (06:36)
[2024-03-07] MEDS: Compazine 10 MG/2 ML IV ONE (06:38)
[2024-03-07] MEDS: Sodium Chloride 0.9% 1000 ML 1,000 ML IV SCH (06:51)
[2024-03-07] MEDS ORDERED: TYLENOL 325 MG PO PRN ×2 (08:00→08:18)
--- NOTE | 2024-03-07 08:11 | PCM.HP ---
History of Present Illness - Chief Complaint Chief Complaint: DKA Date: 03/07/24 History of Present Illness: is a 63 year old male with PMHX of Type II DM- insulin dependent, peripheral neuropathy, and recent left toe amputation. Pt presented to the emergency department with intermittent nausea and vomiting that began last evening approximately 7 PM. He has intermittently been vomiting even until this morning. He was mildly lethargic at home and family was concerned so they brought him in by private vehicle. His blood sugar on arrival was 415 by Accu-Check. Patient recently had a left foot toe amputation at [place] [facility] but unable to tell me why. Pt is a poor historian. He does have mild abdominal pain that is diffuse, generalized. CT abd does show 1. Minimal fullness of the left renal pelvicalyceal system without any obvious visualized obstructing radiodense calculus. If needed, US follow-up is advised. 2. Mild hepatomegaly. Laboratory correlation is advised.3. A small hiatus hernia. US ordered for further evaluation. DKA protocol started in ER and will continue. Pt on insulin gtt and repeat labs ordered. Pt thinks he may have forgot to take his insulin. he is feeling better since admission and no longer has N/V. He denies CP, SOB, N/V/D. - Review of Systems Constitutional: Weakness, No Fever, No Chills Eyes: No Symptoms Ears, Nose, & Throat: No Symptoms Respiratory: No Cough, No Short Of Breath Cardiac: No Chest Pain, No Edema, No Syncope Abdominal/Gastrointestinal: Abdominal Pain, Nausea, Vomiting, No Diarrhea Genitourinary Symptoms: No Dysuria Musculoskeletal: No Back Pain, No Neck Pain Skin: Other (LLE wrapped), No Rash Neurological: No Dizziness, No Focal Weakness, No Sensory Changes Psychological: No Symptoms Endocrine: No Symptoms Hematologic/Lymphatic: No Symptoms Immunological/Allergic: No Symptoms Medications & Allergies Home Medications: Home Medication List Insulin Aspart [NovoLOG Insulin] 1 units SQ UD 05/29/16 [History Confirmed 03/07/24] Insulin Glargine [Lantus Insulin] 50 units SQ QAM 03/25/19 [History Confirmed 03/07/24] Gabapentin 600 mg PO TID 04/01/23 [History Confirmed 03/07/24] Amlodipine Besylate [Norvasc] 10 mg PO DAILY 03/07/24 [History Confirmed 02/16 11/10] Multivitamins,Therapeutic Tab* [Theragran Multivitamin] 1 tab PO DAILY 03/07/24 [History Confirmed 03/07/24] Allergies/Adverse Reactions: Allergies Allergy/AdvReac Type Severity Reaction Status Date / Time codeine AdvReac Severe Vomiting Verified 03/07/24 03:07 hydrocodone bitartrate AdvReac Severe Vomiting Verified 03/07/24 03:07 [From Vicodin] propoxyphene AdvReac Verified 03/07/24 03:07 [From Darvocet-N 100] - Past Medical History Past Medical History: Yes Neurological History: Seizures ENT History: No Pertinent History Cardiac History: No Pertinent History Respiratory History: No Pertinent History Endocrine Medical History: Diabetes Type II Musculoskelatal History: No Pertinent History GI Medical History: No Pertinent History History: No Pertinent History Pyscho-Social History: No Pertinent History Male Reproductive Disorders: No Pertinent History Comment: FX L LEG AND FOOT subsequent infection. diarrhea x3 weeks, was hospitalized for gi sx. gangrene, sepsis 2014 - Past Surgical History Past Surgical History: Yes Neuro Surgical History: No Pertinent History Cardiac History: No Pertinent History Respiratory Surgery: No Pertinent History GI Surgical History: Cholecystectomy, Hernia Repair Genitourinary Surgical Hx: No Pertinent History Musculskeletal Surgical Hx: Orthopedic Surgery Male Surgical History: No Pertinent History Other Surgical History: right femur fixed at age 15. left foot broke at age 20. left leg and foot surgery ,,I&D of left foot, polyps removed - Social History Smoking Status: Never smoker How long have you smoked: 1 yr Exposure to second hand smoke: No Alcohol: None Drug Use: none - Social Determinants of Health Will the patient participate in the screening: Declined to provide Do you worry about a steady place to live?: No In the past 12 months,have you had to go without utilities?: No Have you or anyone in your house had to go without enough: No Transportation Issues: No Has anyone in your support network made you feel unsafe?: No Does the patient want assistance with any of the above?: No - Physical Exam Vital Signs: Vital Signs - 24 hr Temp Pulse Resp BP BP Pulse Ox 03/07/24 07:00 83 13 169/96 98 03/07/24 06:53 102 H 12 167/96 98 03/07/24 06:30 103 H 16 191/145 94 L 03/07/24 06:00 120 H 16 171/93 96 03/07/24 05:57 97 03/07/24 05:30 107 H 13 155/84 94 L 03/07/24 05:00 110 H 17 171/82 97 03/07/24 04:46 113 H 17 167/89 96 03/07/24 04:00 107 H 15 169/89 94 L 03/07/24 03:32 104 H 20 154/83 97 03/07/24 03:12 104 H 16 157/96 98 03/07/24 03:09 98.8 F 111 H 16 157/96 97 General Appearance: no apparent distress, alert Neurologic Exam: alert, oriented x 3, cooperative, normal mood/affect, nml cerebellar function, nml station & gait, sensation nml, No motor deficits Eye Exam: PERRL/EOMI, eyes nml inspection Ears, Nose, Throat Exam: normal ENT inspection, TMs normal, pharynx normal, moist mucous membranes Neck Exam: normal inspection, non-tender, supple, full range of motion Respiratory Exam: normal breath sounds, lungs clear, No respiratory distress Cardiovascular Exam: regular rate/rhythm, normal heart sounds, normal peripheral pulses Gastrointestinal/Abdomen Exam: soft, normal bowel sounds, tenderness (with palpation LUQ, RUQ, RLQ), No mass Back Exam: normal inspection, normal range of motion, No CVA tenderness, No vertebral tenderness Extremity Exam: normal inspection, normal range of motion, pelvis stable, other (LLE wrapped from recent toe amputation. Pt states family has been wrapping weekly for him.) Skin Exam: normal color, warm, dry, No rash Lymphatic Exam: No adenopathy Results - Labs Lab/Micro Results: Lab Results-Last 24 Hours 03/07/24 03/07/24 03/07/24 Range/Units 03:31 03:45 03:45 WBC 11.6 H (4.0-10.5) x10^3/uL RBC 3.88 L (4.1-5.6) x10^6/uL Hgb 11.5 L (12.5-18.0) g/dL Hct 34.2 L (42-50) % MCV 88.1 (78-100) fL MCH 29.6 (26-32) pg MCHC 33.6 (32-36) g/dL RDW 13.0 (11.5-14.0) % Plt Count 280 (150-450) x10^3/uL MPV 11.0 (7.5-11.0) fL Gran % 85.8 H (36.0-66.0) % Immature Gran % (Auto) 0.3 (0.00-0.4) % Nucleat RBC Rel Count 0.0 (0.00-0.1) % Eos # (Auto) 0.01 (0-0.5) x10^3/uL Immature Gran # (Auto) 0.03 (0.00-0.03) x10^3u/L Absolute Lymphs (auto) 0.89 L (1.0-4.6) x10^3/uL Absolute Monos (auto) 0.57 (0.0-1.3) x10^3/uL Absolute Nucleated RBC 0.00 (0.00-0.01) x10^3u/L Lymphocytes % 7.7 L (24.0-44.0) % Monocytes % 4.9 (0.0-12.0) % Eosinophils % 0.1 (0.00-5.0) % Basophils % 1.2 (0.0-0.4) % Absolute Granulocytes 9.96 H (1.4-6.9) x10^3/uL Basophils # 0.14 (0-0.4) x10^3/uL Sodium 136 (135-145) mmol/L Potassium 5.2 H (3.5-5.1) mmol/L Chloride 99 (98-107) mmol/L Carbon Dioxide 15 L* (22-30) mmol/L Anion Gap 27.8 H (5-15) MEQ/L BUN 38 H (9-20) mg/dL Creatinine 1.53 H (0.66-1.25) mg/dL Estimated GFR 50.5 ML/MIN Glucose 558 H* (74-106) mg/dL POC Glucometer 415 H (74 to 106) mg/dL Lactic Acid (0.4-2.0) Calcium 10.3 H (8.4-10.2) mg/dL Magnesium (1.6-2.3) mg/dL Total Bilirubin 1.40 H (0.2-1.3) mg/dL AST 17 (17-59) U/L ALT 14 (0-50) U/L Alkaline Phosphatase 98 (38-126) U/L Troponin I (0.000-0.033) ng/mL Serum Total Protein 7.5 (6.3-8.2) g/dL Albumin 4.4 (3.5-5.0) g/dL Amylase 64 (30-110) U/L Lipase 44 (23-300) U/L Urine Color (Yellow) Urine Appearance (Clear) Urine pH (4.6-8.0) Ur Specific [place] (1.005-1.030) Urine Protein (Negative) Urine Glucose (UA) (Negative) mg/dL Urine Ketones (Negative) Urine Blood (Negative) Urine Nitrite (Negative) Urine Bilirubin (Negative) Urine Urobilinogen (0.2) mg/dL Ur Leukocyte Esterase (Negative) U Hyaline Cast (Auto) (0-2) /LPF Urine Microscopic RBC (0-5) /HPF Urine Microscopic WBC (0-5) /HPF Ur Epithelial Cells (None Seen) /HPF Urine Bacteria (None Seen) /HPF Urine Culture Reflexed (NO) Influenza Type A Ag (NEGATIVE) Influenza Type B Ag (NEGATIVE) RSV (PCR) (NEGATIVE) SARS-CoV-2 (PCR) (NEGATIVE) 03/07/24 03/07/24 03/07/24 Range/Units 03:45 03:45 03:55 WBC (4.0-10.5) x10^3/uL RBC (4.1-5.6) x10^6/uL Hgb (12.5-18.0) g/dL Hct (42-50) % MCV (78-100) fL MCH (26-32) pg MCHC (32-36) g/dL RDW (11.5-14.0) % Plt Count (150-450) x10^3/uL MPV (7.5-11.0) fL Gran % (36.0-66.0) % Immature Gran % (Auto) (0.00-0.4) % Nucleat RBC Rel Count (0.00-0.1) % Eos # (Auto) (0-0.5) x10^3/uL Immature Gran # (Auto) (0.00-0.03) x10^3u/L Absolute Lymphs (auto) (1.0-4.6) x10^3/uL Absolute Monos (auto) (0.0-1.3) x10^3/uL Absolute Nucleated RBC (0.00-0.01) x10^3u/L Lymphocytes % (24.0-44.0) % Monocytes % (0.0-12.0) % Eosinophils % (0.00-5.0) % Basophils % (0.0-0.4) % Absolute Granulocytes (1.4-6.9) x10^3/uL Basophils # (0-0.4) x10^3/uL Sodium (135-145) mmol/L Potassium (3.5-5.1) mmol/L Chloride (98-107) mmol/L Carbon Dioxide (22-30) mmol/L Anion Gap (5-15) MEQ/L BUN (9-20) mg/dL Creatinine (0.66-1.25) mg/dL Estimated GFR ML/MIN Glucose (74-106) mg/dL POC Glucometer (74 to 106) mg/dL Lactic Acid 1.6 (0.4-2.0) Calcium (8.4-10.2) mg/dL Magnesium 1.9 (1.6-2.3) mg/dL Total Bilirubin (0.2-1.3) mg/dL AST (17-59) U/L ALT (0-50) U/L Alkaline Phosphatase (38-126) U/L Troponin I < 0.012 (0.000-0.033) ng/mL Serum Total Protein (6.3-8.2) g/dL Albumin (3.5-5.0) g/dL Amylase (30-110) U/L Lipase (23-300) U/L Urine Color (Yellow) Urine Appearance (Clear) Urine pH (4.6-8.0) Ur Specific [place] (1.005-1.030) Urine Protein (Negative) Urine Glucose (UA) (Negative) mg/dL Urine Ketones (Negative) Urine Blood (Negative) Urine Nitrite (Negative) Urine Bilirubin (Negative) Urine Urobilinogen (0.2) mg/dL Ur Leukocyte Esterase (Negative) U Hyaline Cast (Auto) (0-2) /LPF Urine Microscopic RBC (0-5) /HPF Urine Microscopic WBC (0-5) /HPF Ur Epithelial Cells (None Seen) /HPF Urine Bacteria (None Seen) /HPF Urine Culture Reflexed (NO) Influenza Type A Ag (NEGATIVE) Influenza Type B Ag (NEGATIVE) RSV (PCR) (NEGATIVE) SARS-CoV-2 (PCR) (NEGATIVE) 03/07/24 03/07/24 03/07/24 Range/Units 04:50 04:59 05:14 WBC (4.0-10.5) x10^3/uL RBC (4.1-5.6) x10^6/uL Hgb (12.5-18.0) g/dL Hct (42-50) % MCV (78-100) fL MCH (26-32) pg MCHC (32-36) g/dL RDW (11.5-14.0) % Plt Count (150-450) x10^3/uL MPV (7.5-11.0) fL Gran % (36.0-66.0) % Immature Gran % (Auto) (0.00-0.4) % Nucleat RBC Rel Count (0.00-0.1) % Eos # (Auto) (0-0.5) x10^3/uL Immature Gran # (Auto) (0.00-0.03) x10^3u/L Absolute Lymphs (auto) (1.0-4.6) x10^3/uL Absolute Monos (auto) (0.0-1.3) x10^3/uL Absolute Nucleated RBC (0.00-0.01) x10^3u/L Lymphocytes % (24.0-44.0) % Monocytes % (0.0-12.0) % Eosinophils % (0.00-5.0) % Basophils % (0.0-0.4) % Absolute Granulocytes (1.4-6.9) x10^3/uL Basophils # (0-0.4) x10^3/uL Sodium (135-145) mmol/L Potassium (3.5-5.1) mmol/L Chloride (98-107) mmol/L Carbon Dioxide (22-30) mmol/L Anion Gap (5-15) MEQ/L BUN (9-20) mg/dL Creatinine (0.66-1.25) mg/dL Estimated GFR ML/MIN Glucose (74-106) mg/dL POC Glucometer 523 H* (74 to 106) mg/dL Lactic Acid (0.4-2.0) Calcium (8.4-10.2) mg/dL Magnesium (1.6-2.3) mg/dL Total Bilirubin (0.2-1.3) mg/dL AST (17-59) U/L ALT (0-50) U/L Alkaline Phosphatase (38-126) U/L Troponin I (0.000-0.033) ng/mL Serum Total Protein (6.3-8.2) g/dL Albumin (3.5-5.0) g/dL Amylase (30-110) U/L Lipase (23-300) U/L Urine Color Yellow (Yellow) Urine Appearance Clear (Clear) Urine pH 5.5 (4.6-8.0) Ur Specific [place] 1.025 (1.005-1.030) Urine Protein 100 A (Negative) Urine Glucose (UA) >=1000 A (Negative) mg/dL Urine Ketones >=160 A (Negative) Urine Blood Negative (Negative) Urine Nitrite Negative (Negative) Urine Bilirubin Negative (Negative) Urine Urobilinogen 0.2 (0.2) mg/dL Ur Leukocyte Esterase Negative (Negative) U Hyaline Cast (Auto) 3-5 A (0-2) /LPF Urine Microscopic RBC 0-2 (0-5) /HPF Urine Microscopic WBC 0-2 (0-5) /HPF Ur Epithelial Cells None Seen (None Seen) /HPF Urine Bacteria None Seen (None Seen) /HPF Urine Culture Reflexed NO (NO) Influenza Type A Ag NEGATIVE (NEGATIVE) Influenza Type B Ag NEGATIVE (NEGATIVE) RSV (PCR) NEGATIVE (NEGATIVE) SARS-CoV-2 (PCR) NEGATIVE (NEGATIVE) 03/07/24 03/07/24 03/07/24 Range/Units 05:38 06:26 07:29 WBC (4.0-10.5) x10^3/uL RBC (4.1-5.6) x10^6/uL Hgb (12.5-18.0) g/dL Hct (42-50) % MCV (78-100) fL MCH (26-32) pg MCHC (32-36) g/dL RDW (11.5-14.0) % Plt Count (150-450) x10^3/uL MPV (7.5-11.0) fL Gran % (36.0-66.0) % Immature Gran % (Auto) (0.00-0.4) % Nucleat RBC Rel Count (0.00-0.1) % Eos # (Auto) (0-0.5) x10^3/uL Immature Gran # (Auto) (0.00-0.03) x10^3u/L Absolute Lymphs (auto) (1.0-4.6) x10^3/uL Absolute Monos (auto) (0.0-1.3) x10^3/uL Absolute Nucleated RBC (0.00-0.01) x10^3u/L Lymphocytes % (24.0-44.0) % Monocytes % (0.0-12.0) % Eosinophils % (0.00-5.0) % Basophils % (0.0-0.4) % Absolute Granulocytes (1.4-6.9) x10^3/uL Basophils # (0-0.4) x10^3/uL Sodium (135-145) mmol/L Potassium (3.5-5.1) mmol/L Chloride (98-107) mmol/L Carbon Dioxide (22-30) mmol/L Anion Gap (5-15) MEQ/L BUN (9-20) mg/dL Creatinine (0.66-1.25) mg/dL Estimated GFR ML/MIN Glucose (74-106) mg/dL POC Glucometer 473 H 450 H 355 H (74 to 106) mg/dL Lactic Acid (0.4-2.0) Calcium (8.4-10.2) mg/dL Magnesium (1.6-2.3) mg/dL Total Bilirubin (0.2-1.3) mg/dL AST (17-59) U/L ALT (0-50) U/L Alkaline Phosphatase (38-126) U/L Troponin I (0.000-0.033) ng/mL Serum Total Protein (6.3-8.2) g/dL Albumin (3.5-5.0) g/dL Amylase (30-110) U/L Lipase (23-300) U/L Urine Color (Yellow) Urine Appearance (Clear) Urine pH (4.6-8.0) Ur Specific [place] (1.005-1.030) Urine Protein (Negative) Urine Glucose (UA) (Negative) mg/dL Urine Ketones (Negative) Urine Blood (Negative) Urine Nitrite (Negative) Urine Bilirubin (Negative) Urine Urobilinogen (0.2) mg/dL Ur Leukocyte Esterase (Negative) U Hyaline Cast (Auto) (0-2) /LPF Urine Microscopic RBC (0-5) /HPF Urine Microscopic WBC (0-5) /HPF Ur Epithelial Cells (None Seen) /HPF Urine Bacteria (None Seen) /HPF Urine Culture Reflexed (NO) Influenza Type A Ag (NEGATIVE) Influenza Type B Ag (NEGATIVE) RSV (PCR) (NEGATIVE) SARS-CoV-2 (PCR) (NEGATIVE) - Radiology Impressions Radiology Exams & Impressions: Radiology Procedures Category Date Time Status ABDOMEN AND PELVIS W/0 CONTRAS [CT] Stat Exams 03/07/24 03:48 Completed US ABDOMEN LIMITED [ABDOMINAL-LIMITED] [US] Routine Exams 03/07/24 07:56 Ordered - Other Procedures and Tests Respiratory Therapy 03/07/24 08:00 EKG REPEAT IN AM Assessment/Plan (1) DKA (diabetic ketoacidoses) Current Visit: Yes Status: Acute Qualifiers: Diabetes mellitus type: type 2 Diabetes mellitus complication detail: without coma Qualified Code(s): E11.10 - Type 2 diabetes mellitus with ketoacidosis without coma Assessment & Plan: - DKA protocol - ICU - tele - repeat labs this AM - Zofran for nausea/ vomiting - NPO Code(s): E11.10 - TYPE 2 DIABETES MELLITUS WITH KETOACIDOSIS WITHOUT COMA (2) Hepatomegaly Current Visit: Yes Status: Acute Assessment & Plan: - as seen on CT - US 03/07/24 Impression: Hepatosplenomegaly. Mild left renal pelvocaliectasis. Remaining abdominal sonogram is negative. Code(s): R16.0 - HEPATOMEGALY, NOT ELSEWHERE CLASSIFIED (3) SYED (acute kidney injury) Current Visit: No Status: Acute Assessment & Plan: - Creat 1.53- baseline normal - repeat labs Code(s): N17.9 - ACUTE KIDNEY FAILURE, UNSPECIFIED (4) Abdominal pain Current Visit: No Status: Acute Assessment & Plan: - CT abd 03/07/24 IMPRESSION: 1. Minimal fullness of the left renal pelvicalyceal system without any obvious visualized obstructing radiodense calculus. If needed, US follow-up is advised. 2. Mild hepatomegaly. Laboratory correlation is advised. 3. A small hiatus hernia. 4. The rest of the study was unremarkable. - US for further evaluation of CT- reviewed - Morphine gave in ER - Tylenol for pain PRN Code(s): R10.9 - UNSPECIFIED ABDOMINAL PAIN (5) Hyperkalemia Current Visit: No Status: Chronic Assessment & Plan: - K+5.2 in ER - recheck labs since IV fluids and DKA protocol started- resolved Code(s): E87.5 - HYPERKALEMIA (6) Peripheral neuropathy Current Visit: No Status: Chronic Assessment & Plan: - Continue gabapentin Code(s): G62.9 - POLYNEUROPATHY, UNSPECIFIED (7) Hypertension Current Visit: Yes Status: Acute Assessment & Plan: - acute - 2:2 DKA/ N/V? - Hydralazine PRN - continue amlodipine Code(s): I10 - ESSENTIAL (PRIMARY) HYPERTENSION (8) Amputated toe of left foot Current Visit: Yes Status: Acute Assessment & Plan: - recent left foot toe amputation - adds to complexity - podiatry consulted VTE: Lovenox PPI: protonix Next of [facility]: [facility] [phone] D/C plan: 1-2 days Code status: Full Code(s): S98.132A - COMPLETE TRAUMATIC AMPUTATION OF ONE LEFT LESSER TOE, INIT
[2024-03-07 08:40] LABS: ALBUMIN 4.2 g/dL (3.5-5.0); ANION GAP 20.2 MEQ/L (5-15); BILIRUBIN,TOTAL 1.1 mg/dL (0.2-1.3); Calcium 10.2 mg/dL (8.4-10.2); Creatinine 1 1.37 mg/dL (0.66-1.25); EST GLOMERULAR FILTRATION RATE 57.6 ML/MIN; Potassium 4.5 mmol/L (3.5-5.1); Total Protein 7.3 g/dL (6.3-8.2)
[2024-03-07 08:41] LABS: PHOSPHOROUS 4.3 mg/dL (2.5-4.5)
[2024-03-07] MEDS ORDERED: PROTONIX 40 MG IV IV SCH (10:00)
[2024-03-07] MEDS: NEURONTIN PO SCH (10:13)
[2024-03-07] MEDS: THERAGRAN MULTIVITAMIN PO SCH (10:13)
[2024-03-07] MEDS: ENOXAPARIN SODIUM SQ SCH (10:13)
[2024-03-07] MEDS: Protonix 20MG Tablet PO SCH (10:13)
[2024-03-07] MEDS: NORVASC 5 MG PO SCH (10:13)
--- NOTE | 2024-03-07 10:16 | XRAY ---
Indication: Liver/kidney. Hepatomegaly. Two-dimensional abdominal sonogram performed. Comparison: None. Visualized liver is enlarged measuring 19.8 cm and spleen is enlarged measuring 12.6 cm. No focal solid/cystic hepatic or splenic mass. No ascites. Visualized pancreas homogeneous in echogenicity. Gallbladder surgically absent. Common bile duct measures 6.6 mm. No intrahepatic biliary distention. Visualized aorta and IVC are normal in course and caliber. Right kidney measures 12.6 x 5.4 x 5.7 cm and left measures 12.2 x 6.3 x 5.2 cm. Mild left renal pelvocaliectasis without focal solid/cystic mass or free fluid. Impression: Hepatosplenomegaly. Mild left renal pelvocaliectasis. Remaining abdominal sonogram is negative.
[2024-03-07] MEDS: Zofran 4 MG/2 ML VIAL IV PRN (10:43)
[2024-03-07] MEDS: D5W/0.45NS W/ 20mEq KCl 1000 ML 1,000 ML IV SCH (10:46)
[2024-03-07] MEDS: APRESOLINE 20 MG/ML INJ IV PRN (12:41)
[2024-03-07 13:03] LABS: ANION GAP 12.2 MEQ/L (5-15); Calcium 9.9 mg/dL (8.4-10.2); Creatinine 1 1.19 mg/dL (0.66-1.25); EST GLOMERULAR FILTRATION RATE 68.2 ML/MIN; MAGNESIUM 1.9 mg/dL (1.6-2.3); Potassium 4.1 mmol/L (3.5-5.1)
[2024-03-07] MEDS ORDERED: D50W 50 ml Abboject IV PRN (13:09)
[2024-03-07] MEDS ORDERED: Glutose 15 GM ORAL GEL PO PRN (13:09)
--- NOTE | 2024-03-07 14:39 | PCM.CONS ---
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 He presents today with DKA this AM. Pt presented to the emergency department with intermittent nausea and vomiting that began last evening approximately 7 PM. He has intermittently been vomiting even until this morning. He was mildly lethargic at home and family was concerned so they brought him in by private vehicle. His blood sugar on arrival was 415 by Accu-Check. Patient recently had a left foot toe amputation at [place] for bone infection. Pt is a poor historian. Medications & Allergies Home Medications: Home Medication List Insulin Aspart [NovoLOG Insulin] 1 units SQ UD 05/29/16 [History Confirmed 03/07/24] Insulin Glargine [Lantus Insulin] 50 units SQ QAM 03/25/19 [History Confirmed 03/07/24] Gabapentin 600 mg PO TID 04/01/23 [History Confirmed 03/07/24] Amlodipine Besylate [Norvasc] 10 mg PO DAILY 03/07/24 [History Confirmed 03/07/24] Multivitamins,Therapeutic Tab* [Theragran Multivitamin] 1 tab PO DAILY [History Confirmed 03/07/24] Allergies/Adverse Reactions: Allergies Allergy/AdvReac Type Severity Reaction Status Date / Time codeine AdvReac Severe Vomiting Verified 03/07/24 03:07 hydrocodone bitartrate AdvReac Severe Vomiting Verified 03/07/24 03:07 [From Vicodin] propoxyphene AdvReac Verified 03/07/24 03:07 [From Darvocet-N 100] - Past Medical History Past Medical History: Yes Neurological History: Seizures ENT History: No Pertinent History Cardiac History: No Pertinent History Respiratory History: No Pertinent History Endocrine Medical History: Diabetes Type II Musculoskelatal History: No Pertinent History GI Medical History: No Pertinent History History: No Pertinent History Pyscho-Social History: No Pertinent History Male Reproductive Disorders: No Pertinent History Comment: FX L LEG AND FOOT subsequent infection. diarrhea x3 weeks, was hospitalized for gi sx. gangrene, sepsis 2014 - Past Surgical History Past Surgical History: Yes Neuro Surgical History: No Pertinent History Cardiac History: No Pertinent History Respiratory Surgery: No Pertinent History GI Surgical History: Cholecystectomy, Hernia Repair Genitourinary Surgical Hx: No Pertinent History Musculskeletal Surgical Hx: Orthopedic Surgery Male Surgical History: No Pertinent History Other Surgical History: right femur fixed at age 15. left foot broke at age 20. left leg and foot surgery ,,I&D of left foot, polyps removed - Social History Smoking Status: Never smoker How long have you smoked: 1 yr Exposure to second hand smoke: No Alcohol: None Drug Use: none - Social Determinants of Health Will the patient participate in the screening: Declined to provide Do you worry about a steady place to live?: No In the past 12 months,have you had to go without utilities?: No Have you or anyone in your house had to go without enough: No Transportation Issues: No Has anyone in your support network made you feel unsafe?: No Does the patient want assistance with any of the above?: No Physical Exam - Narrative Narrative Physical Exam: Podiatry Physical Exam Results - Labs Lab/Micro Results: Lab Results-Last 24 Hours 03/07/24 03/07/24 03/07/24 Range/Units 03:31 03:45 03:45 WBC 11.6 H (4.0-10.5) x10^3/uL RBC 3.88 L (4.1-5.6) x10^6/uL Hgb 11.5 L (12.5-18.0) g/dL Hct 34.2 L (42-50) % MCV 88.1 (78-100) fL MCH 29.6 (26-32) pg MCHC 33.6 (32-36) g/dL RDW 13.0 (11.5-14.0) % Plt Count 280 (150-450) x10^3/uL MPV 11.0 (7.5-11.0) fL Gran % 85.8 H (36.0-66.0) % Immature Gran % (Auto) 0.3 (0.00-0.4) % Nucleat RBC Rel Count 0.0 (0.00-0.1) % Eos # (Auto) 0.01 (0-0.5) x10^3/uL Immature Gran # (Auto) 0.03 (0.00-0.03) x10^3u/L Absolute Lymphs (auto) 0.89 L (1.0-4.6) x10^3/uL Absolute Monos (auto) 0.57 (0.0-1.3) x10^3/uL Absolute Nucleated RBC 0.00 (0.00-0.01) x10^3u/L Lymphocytes % 7.7 L (24.0-44.0) % Monocytes % 4.9 (0.0-12.0) % Eosinophils % 0.1 (0.00-5.0) % Basophils % 1.2 (0.0-0.4) % Absolute Granulocytes 9.96 H (1.4-6.9) x10^3/uL Basophils # 0.14 (0-0.4) x10^3/uL Sodium 136 (135-145) mmol/L Potassium 5.2 H (3.5-5.1) mmol/L Chloride 99 (98-107) mmol/L Carbon Dioxide 15 L* (22-30) mmol/L Anion Gap 27.8 H (5-15) MEQ/L BUN 38 H (9-20) mg/dL Creatinine 1.53 H (0.66-1.25) mg/dL Estimated GFR 50.5 ML/MIN Glucose 558 H* (74-106) mg/dL POC Glucometer 415 H (74 to 106) mg/dL Lactic Acid (0.4-2.0) Calcium 10.3 H (8.4-10.2) mg/dL Phosphorus (2.5-4.5) mg/dL Magnesium (1.6-2.3) mg/dL Total Bilirubin 1.40 H (0.2-1.3) mg/dL AST 17 (17-59) U/L ALT 14 (0-50) U/L Alkaline Phosphatase 98 (38-126) U/L Ammonia (9-30) umol/L Troponin I (0.000-0.033) ng/mL Serum Total Protein 7.5 (6.3-8.2) g/dL Albumin 4.4 (3.5-5.0) g/dL Prealbumin (17.6-36.0) mg/dL Amylase 64 (30-110) U/L Lipase 44 (23-300) U/L Urine Color (Yellow) Urine Appearance (Clear) Urine pH (4.6-8.0) Ur Specific [place] (1.005-1.030) Urine Protein (Negative) Urine Glucose (UA) (Negative) mg/dL Urine Ketones (Negative) Urine Blood (Negative) Urine Nitrite (Negative) Urine Bilirubin (Negative) Urine Urobilinogen (0.2) mg/dL Ur Leukocyte Esterase (Negative) U Hyaline Cast (Auto) (0-2) /LPF Urine Microscopic RBC (0-5) /HPF Urine Microscopic WBC (0-5) /HPF Ur Epithelial Cells (None Seen) /HPF Urine Bacteria (None Seen) /HPF Urine Culture Reflexed (NO) Monoscreen (NEGATIVE) Influenza Type A Ag (NEGATIVE) Influenza Type B Ag (NEGATIVE) RSV (PCR) (NEGATIVE) SARS-CoV-2 (PCR) (NEGATIVE) 03/07/24 03/07/24 03/07/24 Range/Units 03:45 03:45 03:55 WBC (4.0-10.5) x10^3/uL RBC (4.1-5.6) x10^6/uL Hgb (12.5-18.0) g/dL Hct (42-50) % MCV (78-100) fL MCH (26-32) pg MCHC (32-36) g/dL RDW (11.5-14.0) % Plt Count (150-450) x10^3/uL MPV (7.5-11.0) fL Gran % (36.0-66.0) % Immature Gran % (Auto) (0.00-0.4) % Nucleat RBC Rel Count (0.00-0.1) % Eos # (Auto) (0-0.5) x10^3/uL Immature Gran # (Auto) (0.00-0.03) x10^3u/L Absolute Lymphs (auto) (1.0-4.6) x10^3/uL Absolute Monos (auto) (0.0-1.3) x10^3/uL Absolute Nucleated RBC (0.00-0.01) x10^3u/L Lymphocytes % (24.0-44.0) % Monocytes % (0.0-12.0) % Eosinophils % (0.00-5.0) % Basophils % (0.0-0.4) % Absolute Granulocytes (1.4-6.9) x10^3/uL Basophils # (0-0.4) x10^3/uL Sodium (135-145) mmol/L Potassium (3.5-5.1) mmol/L Chloride (98-107) mmol/L Carbon Dioxide (22-30) mmol/L Anion Gap (5-15) MEQ/L BUN (9-20) mg/dL Creatinine (0.66-1.25) mg/dL Estimated GFR ML/MIN Glucose (74-106) mg/dL POC Glucometer (74 to 106) mg/dL Lactic Acid 1.6 (0.4-2.0) Calcium (8.4-10.2) mg/dL Phosphorus (2.5-4.5) mg/dL Magnesium 1.9 (1.6-2.3) mg/dL Total Bilirubin (0.2-1.3) mg/dL AST (17-59) U/L ALT (0-50) U/L Alkaline Phosphatase (38-126) U/L Ammonia (9-30) umol/L Troponin I < 0.012 (0.000-0.033) ng/mL Serum Total Protein (6.3-8.2) g/dL Albumin (3.5-5.0) g/dL Prealbumin (17.6-36.0) mg/dL Amylase (30-110) U/L Lipase (23-300) U/L Urine Color (Yellow) Urine Appearance (Clear) Urine pH (4.6-8.0) Ur Specific [place] (1.005-1.030) Urine Protein (Negative) Urine Glucose (UA) (Negative) mg/dL Urine Ketones (Negative) Urine Blood (Negative) Urine Nitrite (Negative) Urine Bilirubin (Negative) Urine Urobilinogen (0.2) mg/dL Ur Leukocyte Esterase (Negative) U Hyaline Cast (Auto) (0-2) /LPF Urine Microscopic RBC (0-5) /HPF Urine Microscopic WBC (0-5) /HPF Ur Epithelial Cells (None Seen) /HPF Urine Bacteria (None Seen) /HPF Urine Culture Reflexed (NO) Monoscreen (NEGATIVE) Influenza Type A Ag (NEGATIVE) Influenza Type B Ag (NEGATIVE) RSV (PCR) (NEGATIVE) SARS-CoV-2 (PCR) (NEGATIVE) 03/07/24 03/07/24 03/07/24 Range/Units 04:50 04:59 05:14 WBC (4.0-10.5) x10^3/uL RBC (4.1-5.6) x10^6/uL Hgb (12.5-18.0) g/dL Hct (42-50) % MCV (78-100) fL MCH (26-32) pg MCHC (32-36) g/dL RDW (11.5-14.0) % Plt Count (150-450) x10^3/uL MPV (7.5-11.0) fL Gran % (36.0-66.0) % Immature Gran % (Auto) (0.00-0.4) % Nucleat RBC Rel Count (0.00-0.1) % Eos # (Auto) (0-0.5) x10^3/uL Immature Gran # (Auto) (0.00-0.03) x10^3u/L Absolute Lymphs (auto) (1.0-4.6) x10^3/uL Absolute Monos (auto) (0.0-1.3) x10^3/uL Absolute Nucleated RBC (0.00-0.01) x10^3u/L Lymphocytes % (24.0-44.0) % Monocytes % (0.0-12.0) % Eosinophils % (0.00-5.0) % Basophils % (0.0-0.4) % Absolute Granulocytes (1.4-6.9) x10^3/uL Basophils # (0-0.4) x10^3/uL Sodium (135-145) mmol/L Potassium (3.5-5.1) mmol/L Chloride (98-107) mmol/L Carbon Dioxide (22-30) mmol/L Anion Gap (5-15) MEQ/L BUN (9-20) mg/dL Creatinine (0.66-1.25) mg/dL Estimated GFR ML/MIN Glucose (74-106) mg/dL POC Glucometer 523 H* (74 to 106) mg/dL Lactic Acid (0.4-2.0) Calcium (8.4-10.2) mg/dL Phosphorus (2.5-4.5) mg/dL Magnesium (1.6-2.3) mg/dL Total Bilirubin (0.2-1.3) mg/dL AST (17-59) U/L ALT (0-50) U/L Alkaline Phosphatase (38-126) U/L Ammonia (9-30) umol/L Troponin I (0.000-0.033) ng/mL Serum Total Protein (6.3-8.2) g/dL Albumin (3.5-5.0) g/dL Prealbumin (17.6-36.0) mg/dL Amylase (30-110) U/L Lipase (23-300) U/L Urine Color Yellow (Yellow) Urine Appearance Clear (Clear) Urine pH 5.5 (4.6-8.0) Ur Specific [place] 1.025 (1.005-1.030) Urine Protein 100 A (Negative) Urine Glucose (UA) >=1000 A (Negative) mg/dL Urine Ketones >=160 A (Negative) Urine Blood Negative (Negative) Urine Nitrite Negative (Negative) Urine Bilirubin Negative (Negative) Urine Urobilinogen 0.2 (0.2) mg/dL Ur Leukocyte Esterase Negative (Negative) U Hyaline Cast (Auto) 3-5 A (0-2) /LPF Urine Microscopic RBC 0-2 (0-5) /HPF Urine Microscopic WBC 0-2 (0-5) /HPF Ur Epithelial Cells None Seen (None Seen) /HPF Urine Bacteria None Seen (None Seen) /HPF Urine Culture Reflexed NO (NO) Monoscreen (NEGATIVE) Influenza Type A Ag NEGATIVE (NEGATIVE) Influenza Type B Ag NEGATIVE (NEGATIVE) RSV (PCR) NEGATIVE (NEGATIVE) SARS-CoV-2 (PCR) NEGATIVE (NEGATIVE) 03/07/24 03/07/24 03/07/24 Range/Units 05:38 06:26 07:29 WBC (4.0-10.5) x10^3/uL RBC (4.1-5.6) x10^6/uL Hgb (12.5-18.0) g/dL Hct (42-50) % MCV (78-100) fL MCH (26-32) pg MCHC (32-36) g/dL RDW (11.5-14.0) % Plt Count (150-450) x10^3/uL MPV (7.5-11.0) fL Gran % (36.0-66.0) % Immature Gran % (Auto) (0.00-0.4) % Nucleat RBC Rel Count (0.00-0.1) % Eos # (Auto) (0-0.5) x10^3/uL Immature Gran # (Auto) (0.00-0.03) x10^3u/L Absolute Lymphs (auto) (1.0-4.6) x10^3/uL Absolute Monos (auto) (0.0-1.3) x10^3/uL Absolute Nucleated RBC (0.00-0.01) x10^3u/L Lymphocytes % (24.0-44.0) % Monocytes % (0.0-12.0) % Eosinophils % (0.00-5.0) % Basophils % (0.0-0.4) % Absolute Granulocytes (1.4-6.9) x10^3/uL Basophils # (0-0.4) x10^3/uL Sodium (135-145) mmol/L Potassium (3.5-5.1) mmol/L Chloride (98-107) mmol/L Carbon Dioxide (22-30) mmol/L Anion Gap (5-15) MEQ/L BUN (9-20) mg/dL Creatinine (0.66-1.25) mg/dL Estimated GFR ML/MIN Glucose (74-106) mg/dL POC Glucometer 473 H 450 H 355 H (74 to 106) mg/dL Lactic Acid (0.4-2.0) Calcium (8.4-10.2) mg/dL Phosphorus (2.5-4.5) mg/dL Magnesium (1.6-2.3) mg/dL Total Bilirubin (0.2-1.3) mg/dL AST (17-59) U/L ALT (0-50) U/L Alkaline Phosphatase (38-126) U/L Ammonia (9-30) umol/L Troponin I (0.000-0.033) ng/mL Serum Total Protein (6.3-8.2) g/dL Albumin (3.5-5.0) g/dL Prealbumin (17.6-36.0) mg/dL Amylase (30-110) U/L Lipase (23-300) U/L Urine Color (Yellow) Urine Appearance (Clear) Urine pH (4.6-8.0) Ur Specific [place] (1.005-1.030) Urine Protein (Negative) Urine Glucose (UA) (Negative) mg/dL Urine Ketones (Negative) Urine Blood (Negative) Urine Nitrite (Negative) Urine Bilirubin (Negative) Urine Urobilinogen (0.2) mg/dL Ur Leukocyte Esterase (Negative) U Hyaline Cast (Auto) (0-2) /LPF Urine Microscopic RBC (0-5) /HPF Urine Microscopic WBC (0-5) /HPF Ur Epithelial Cells (None Seen) /HPF Urine Bacteria (None Seen) /HPF Urine Culture Reflexed (NO) Monoscreen (NEGATIVE) Influenza Type A Ag (NEGATIVE) Influenza Type B Ag (NEGATIVE) RSV (PCR) (NEGATIVE) SARS-CoV-2 (PCR) (NEGATIVE) 03/07/24 03/07/24 03/07/24 Range/Units 08:14 08:15 08:15 WBC (4.0-10.5) x10^3/uL RBC (4.1-5.6) x10^6/uL Hgb (12.5-18.0) g/dL Hct (42-50) % MCV (78-100) fL MCH (26-32) pg MCHC (32-36) g/dL RDW (11.5-14.0) % Plt Count (150-450) x10^3/uL MPV (7.5-11.0) fL Gran % (36.0-66.0) % Immature Gran % (Auto) (0.00-0.4) % Nucleat RBC Rel Count (0.00-0.1) % Eos # (Auto) (0-0.5) x10^3/uL Immature Gran # (Auto) (0.00-0.03) x10^3u/L Absolute Lymphs (auto) (1.0-4.6) x10^3/uL Absolute Monos (auto) (0.0-1.3) x10^3/uL Absolute Nucleated RBC (0.00-0.01) x10^3u/L Lymphocytes % (24.0-44.0) % Monocytes % (0.0-12.0) % Eosinophils % (0.00-5.0) % Basophils % (0.0-0.4) % Absolute Granulocytes (1.4-6.9) x10^3/uL Basophils # (0-0.4) x10^3/uL Sodium 142 (135-145) mmol/L Potassium 4.5 (3.5-5.1) mmol/L Chloride 106 (98-107) mmol/L Carbon Dioxide 21 L (22-30) mmol/L Anion Gap 20.2 H (5-15) MEQ/L BUN 33 H (9-20) mg/dL Creatinine 1.37 H (0.66-1.25) mg/dL Estimated GFR 57.6 ML/MIN Glucose 309 H (74-106) mg/dL POC Glucometer 286 H (74 to 106) mg/dL Lactic Acid (0.4-2.0) Calcium 10.2 (8.4-10.2) mg/dL Phosphorus (2.5-4.5) mg/dL Magnesium (1.6-2.3) mg/dL Total Bilirubin 1.10 (0.2-1.3) mg/dL AST 18 (17-59) U/L ALT 17 (0-50) U/L Alkaline Phosphatase 80 (38-126) U/L Ammonia (9-30) umol/L Troponin I < 0.012 (0.000-0.033) ng/mL Serum Total Protein 7.3 (6.3-8.2) g/dL Albumin 4.2 (3.5-5.0) g/dL Prealbumin (17.6-36.0) mg/dL Amylase (30-110) U/L Lipase (23-300) U/L Urine Color (Yellow) Urine Appearance (Clear) Urine pH (4.6-8.0) Ur Specific [place] (1.005-1.030) Urine Protein (Negative) Urine Glucose (UA) (Negative) mg/dL Urine Ketones (Negative) Urine Blood (Negative) Urine Nitrite (Negative) Urine Bilirubin (Negative) Urine Urobilinogen (0.2) mg/dL Ur Leukocyte Esterase (Negative) U Hyaline Cast (Auto) (0-2) /LPF Urine Microscopic RBC (0-5) /HPF Urine Microscopic WBC (0-5) /HPF Ur Epithelial Cells (None Seen) /HPF Urine Bacteria (None Seen) /HPF Urine Culture Reflexed (NO) Monoscreen (NEGATIVE) Influenza Type A Ag (NEGATIVE) Influenza Type B Ag (NEGATIVE) RSV (PCR) (NEGATIVE) SARS-CoV-2 (PCR) (NEGATIVE) 03/07/24 03/07/24 03/07/24 Range/Units 08:15 08:15 09:04 WBC (4.0-10.5) x10^3/uL RBC (4.1-5.6) x10^6/uL Hgb (12.5-18.0) g/dL Hct (42-50) % MCV (78-100) fL MCH (26-32) pg MCHC (32-36) g/dL RDW (11.5-14.0) % Plt Count (150-450) x10^3/uL MPV (7.5-11.0) fL Gran % (36.0-66.0) % Immature Gran % (Auto) (0.00-0.4) % Nucleat RBC Rel Count (0.00-0.1) % Eos # (Auto) (0-0.5) x10^3/uL Immature Gran # (Auto) (0.00-0.03) x10^3u/L Absolute Lymphs (auto) (1.0-4.6) x10^3/uL Absolute Monos (auto) (0.0-1.3) x10^3/uL Absolute Nucleated RBC (0.00-0.01) x10^3u/L Lymphocytes % (24.0-44.0) % Monocytes % (0.0-12.0) % Eosinophils % (0.00-5.0) % Basophils % (0.0-0.4) % Absolute Granulocytes (1.4-6.9) x10^3/uL Basophils # (0-0.4) x10^3/uL Sodium (135-145) mmol/L Potassium (3.5-5.1) mmol/L Chloride (98-107) mmol/L Carbon Dioxide (22-30) mmol/L Anion Gap (5-15) MEQ/L BUN (9-20) mg/dL Creatinine (0.66-1.25) mg/dL Estimated GFR ML/MIN Glucose (74-106) mg/dL POC Glucometer 234 H (74 to 106) mg/dL Lactic Acid (0.4-2.0) Calcium (8.4-10.2) mg/dL Phosphorus 4.3 (2.5-4.5) mg/dL Magnesium 2.0 (1.6-2.3) mg/dL Total Bilirubin (0.2-1.3) mg/dL AST (17-59) U/L ALT (0-50) U/L Alkaline Phosphatase (38-126) U/L Ammonia (9-30) umol/L Troponin I (0.000-0.033) ng/mL Serum Total Protein (6.3-8.2) g/dL Albumin (3.5-5.0) g/dL Prealbumin 19.98 (17.6-36.0) mg/dL Amylase (30-110) U/L Lipase (23-300) U/L Urine Color (Yellow) Urine Appearance (Clear) Urine pH (4.6-8.0) Ur Specific [place] (1.005-1.030) Urine Protein (Negative) Urine Glucose (UA) (Negative) mg/dL Urine Ketones (Negative) Urine Blood (Negative) Urine Nitrite (Negative) Urine Bilirubin (Negative) Urine Urobilinogen (0.2) mg/dL Ur Leukocyte Esterase (Negative) U Hyaline Cast (Auto) (0-2) /LPF Urine Microscopic RBC (0-5) /HPF Urine Microscopic WBC (0-5) /HPF Ur Epithelial Cells (None Seen) /HPF Urine Bacteria (None Seen) /HPF Urine Culture Reflexed (NO) Monoscreen (NEGATIVE) Influenza Type A Ag (NEGATIVE) Influenza Type B Ag (NEGATIVE) RSV (PCR) (NEGATIVE) SARS-CoV-2 (PCR) (NEGATIVE) 03/07/24 03/07/24 03/07/24 Range/Units 10:06 11:11 12:08 WBC (4.0-10.5) x10^3/uL RBC (4.1-5.6) x10^6/uL Hgb (12.5-18.0) g/dL Hct (42-50) % MCV (78-100) fL MCH (26-32) pg MCHC (32-36) g/dL RDW (11.5-14.0) % Plt Count (150-450) x10^3/uL MPV (7.5-11.0) fL Gran % (36.0-66.0) % Immature Gran % (Auto) (0.00-0.4) % Nucleat RBC Rel Count (0.00-0.1) % Eos # (Auto) (0-0.5) x10^3/uL Immature Gran # (Auto) (0.00-0.03) x10^3u/L Absolute Lymphs (auto) (1.0-4.6) x10^3/uL Absolute Monos (auto) (0.0-1.3) x10^3/uL Absolute Nucleated RBC (0.00-0.01) x10^3u/L Lymphocytes % (24.0-44.0) % Monocytes % (0.0-12.0) % Eosinophils % (0.00-5.0) % Basophils % (0.0-0.4) % Absolute Granulocytes (1.4-6.9) x10^3/uL Basophils # (0-0.4) x10^3/uL Sodium (135-145) mmol/L Potassium (3.5-5.1) mmol/L Chloride (98-107) mmol/L Carbon Dioxide (22-30) mmol/L Anion Gap (5-15) MEQ/L BUN (9-20) mg/dL Creatinine (0.66-1.25) mg/dL Estimated GFR ML/MIN Glucose (74-106) mg/dL POC Glucometer 186 H 131 H 117 H (74 to 106) mg/dL Lactic Acid (0.4-2.0) Calcium (8.4-10.2) mg/dL Phosphorus (2.5-4.5) mg/dL Magnesium (1.6-2.3) mg/dL Total Bilirubin (0.2-1.3) mg/dL AST (17-59) U/L ALT (0-50) U/L Alkaline Phosphatase (38-126) U/L Ammonia (9-30) umol/L Troponin I (0.000-0.033) ng/mL Serum Total Protein (6.3-8.2) g/dL Albumin (3.5-5.0) g/dL Prealbumin (17.6-36.0) mg/dL Amylase (30-110) U/L Lipase (23-300) U/L Urine Color (Yellow) Urine Appearance (Clear) Urine pH (4.6-8.0) Ur Specific [place] (1.005-1.030) Urine Protein (Negative) Urine Glucose (UA) (Negative) mg/dL Urine Ketones (Negative) Urine Blood (Negative) Urine Nitrite (Negative) Urine Bilirubin (Negative) Urine Urobilinogen (0.2) mg/dL Ur Leukocyte Esterase (Negative) U Hyaline Cast (Auto) (0-2) /LPF Urine Microscopic RBC (0-5) /HPF Urine Microscopic WBC (0-5) /HPF Ur Epithelial Cells (None Seen) /HPF Urine Bacteria (None Seen) /HPF Urine Culture Reflexed (NO) Monoscreen (NEGATIVE) Influenza Type A Ag (NEGATIVE) Influenza Type B Ag (NEGATIVE) RSV (PCR) (NEGATIVE) SARS-CoV-2 (PCR) (NEGATIVE) 03/07/24 03/07/24 03/07/24 Range/Units 12:44 12:44 12:44 WBC (4.0-10.5) x10^3/uL RBC (4.1-5.6) x10^6/uL Hgb (12.5-18.0) g/dL Hct (42-50) % MCV (78-100) fL MCH (26-32) pg MCHC (32-36) g/dL RDW (11.5-14.0) % Plt Count (150-450) x10^3/uL MPV (7.5-11.0) fL Gran % (36.0-66.0) % Immature Gran % (Auto) (0.00-0.4) % Nucleat RBC Rel Count (0.00-0.1) % Eos # (Auto) (0-0.5) x10^3/uL Immature Gran # (Auto) (0.00-0.03) x10^3u/L Absolute Lymphs (auto) (1.0-4.6) x10^3/uL Absolute Monos (auto) (0.0-1.3) x10^3/uL Absolute Nucleated RBC (0.00-0.01) x10^3u/L Lymphocytes % (24.0-44.0) % Monocytes % (0.0-12.0) % Eosinophils % (0.00-5.0) % Basophils % (0.0-0.4) % Absolute Granulocytes (1.4-6.9) x10^3/uL Basophils # (0-0.4) x10^3/uL Sodium 144 (135-145) mmol/L Potassium 4.1 (3.5-5.1) mmol/L Chloride 109 H (98-107) mmol/L Carbon Dioxide 27 (22-30) mmol/L Anion Gap 12.2 (5-15) MEQ/L BUN 31 H (9-20) mg/dL Creatinine 1.19 (0.66-1.25) mg/dL Estimated GFR 68.2 ML/MIN Glucose 122 H (74-106) mg/dL POC Glucometer (74 to 106) mg/dL Lactic Acid (0.4-2.0) Calcium 9.9 (8.4-10.2) mg/dL Phosphorus (2.5-4.5) mg/dL Magnesium 1.9 (1.6-2.3) mg/dL Total Bilirubin (0.2-1.3) mg/dL AST (17-59) U/L ALT (0-50) U/L Alkaline Phosphatase (38-126) U/L Ammonia < 9 L (9-30) umol/L Troponin I < 0.012 (0.000-0.033) ng/mL Serum Total Protein (6.3-8.2) g/dL Albumin (3.5-5.0) g/dL Prealbumin (17.6-36.0) mg/dL Amylase (30-110) U/L Lipase (23-300) U/L Urine Color (Yellow) Urine Appearance (Clear) Urine pH (4.6-8.0) Ur Specific [place] (1.005-1.030) Urine Protein (Negative) Urine Glucose (UA) (Negative) mg/dL Urine Ketones (Negative) Urine Blood (Negative) Urine Nitrite (Negative) Urine Bilirubin (Negative) Urine Urobilinogen (0.2) mg/dL Ur Leukocyte Esterase (Negative) U Hyaline Cast (Auto) (0-2) /LPF Urine Microscopic RBC (0-5) /HPF Urine Microscopic WBC (0-5) /HPF Ur Epithelial Cells (None Seen) /HPF Urine Bacteria (None Seen) /HPF Urine Culture Reflexed (NO) Monoscreen (NEGATIVE) Influenza Type A Ag (NEGATIVE) Influenza Type B Ag (NEGATIVE) RSV (PCR) (NEGATIVE) SARS-CoV-2 (PCR) (NEGATIVE) 03/07/24 03/07/24 03/07/24 Range/Units 12:44 13:07 14:04 WBC (4.0-10.5) x10^3/uL RBC (4.1-5.6) x10^6/uL Hgb (12.5-18.0) g/dL Hct (42-50) % MCV (78-100) fL MCH (26-32) pg MCHC (32-36) g/dL RDW (11.5-14.0) % Plt Count (150-450) x10^3/uL MPV (7.5-11.0) fL Gran % (36.0-66.0) % Immature Gran % (Auto) (0.00-0.4) % Nucleat RBC Rel Count (0.00-0.1) % Eos # (Auto) (0-0.5) x10^3/uL Immature Gran # (Auto) (0.00-0.03) x10^3u/L Absolute Lymphs (auto) (1.0-4.6) x10^3/uL Absolute Monos (auto) (0.0-1.3) x10^3/uL Absolute Nucleated RBC (0.00-0.01) x10^3u/L Lymphocytes % (24.0-44.0) % Monocytes % (0.0-12.0) % Eosinophils % (0.00-5.0) % Basophils % (0.0-0.4) % Absolute Granulocytes (1.4-6.9) x10^3/uL Basophils # (0-0.4) x10^3/uL Sodium (135-145) mmol/L Potassium (3.5-5.1) mmol/L Chloride (98-107) mmol/L Carbon Dioxide (22-30) mmol/L Anion Gap (5-15) MEQ/L BUN (9-20) mg/dL Creatinine (0.66-1.25) mg/dL Estimated GFR ML/MIN Glucose (74-106) mg/dL POC Glucometer 106 122 H (74 to 106) mg/dL Lactic Acid (0.4-2.0) Calcium (8.4-10.2) mg/dL Phosphorus (2.5-4.5) mg/dL Magnesium (1.6-2.3) mg/dL Total Bilirubin (0.2-1.3) mg/dL AST (17-59) U/L ALT (0-50) U/L Alkaline Phosphatase (38-126) U/L Ammonia (9-30) umol/L Troponin I (0.000-0.033) ng/mL Serum Total Protein (6.3-8.2) g/dL Albumin (3.5-5.0) g/dL Prealbumin (17.6-36.0) mg/dL Amylase (30-110) U/L Lipase (23-300) U/L Urine Color (Yellow) Urine Appearance (Clear) Urine pH (4.6-8.0) Ur Specific [place] (1.005-1.030) Urine Protein (Negative) Urine Glucose (UA) (Negative) mg/dL Urine Ketones (Negative) Urine Blood (Negative) Urine Nitrite (Negative) Urine Bilirubin (Negative) Urine Urobilinogen (0.2) mg/dL Ur Leukocyte Esterase (Negative) U Hyaline Cast (Auto) (0-2) /LPF Urine Microscopic RBC (0-5) /HPF Urine Microscopic WBC (0-5) /HPF Ur Epithelial Cells (None Seen) /HPF Urine Bacteria (None Seen) /HPF Urine Culture Reflexed (NO) Monoscreen NEGATIVE (NEGATIVE) Influenza Type A Ag (NEGATIVE) Influenza Type B Ag (NEGATIVE) RSV (PCR) (NEGATIVE) SARS-CoV-2 (PCR) (NEGATIVE) - Radiology Impressions Radiology Exams & Impressions: Radiology Procedures Category Date Time Status ABDOMEN AND PELVIS W/0 CONTRAS [CT] Stat Exams 03/07/24 03:48 Completed UPPER ABDOMEN [US] Routine Exams 03/07/24 08:50 Completed - Other Procedures and Tests Respiratory Therapy 03/07/24 08:00 EKG REPEAT IN AM Assessment/Plan (1) Amputated toe of left foot Current Visit: Yes Status: Acute Assessment & Plan: Patient examination and evaluation Awaiting fax of patients chart at this time Amputation of 3rd digit to the left foot with sutures well co apt and no obvious signs of drainage. Will plan for outpatient follow up in 2 weeks of d/c Highly recommend patient being on out patient abx during healing process. Seemingly partial resection of digit, unknown level of extent of bone infection/clean margins etc. Will follow with you at this time Ok for d/c from my standpoint once medical criteria has been met. Code(s): S98.132A - COMPLETE TRAUMATIC AMPUTATION OF ONE LEFT LESSER TOE, INIT (2) DKA (diabetic ketoacidoses) Current Visit: Yes Status: Acute Qualifiers: Diabetes mellitus type: type 2 Diabetes mellitus complication detail: w [facility] coma Qualified Code(s): E11.10 - Type 2 diabetes mellitus with ketoacidosis without coma Code(s): E11.10 - TYPE 2 DIABETES MELLITUS WITH KETOACIDOSIS WITHOUT COMA (3) Uncontrolled type 2 diabetes mellitus Current Visit: No Status: Acute Code(s): E11.65 - TYPE 2 DIABETES MELLITUS WITH HYPERGLYCEMIA (4) Peripheral neuropathy Current Visit: No Status: Chronic Code(s): G62.9 - POLYNEUROPATHY, UNSPECIFIED (5) Type 2 diabetes mellitus with left diabetic foot infection Current Visit: No Status: Resolved Code(s): E11.628 - TYPE 2 DIABETES MELLITUS WITH OTHER SKIN COMPLICATIONS; L08.9 - LOCAL INFECTION OF THE SKIN AND SUBCUTANEOUS TISSUE, UNSP
[2024-03-07] MEDS: Lantus Insulin SQ ONE (15:21)
[2024-03-07] MEDS: Zestril 10 MG PO SCH (16:32)
[2024-03-07 16:54] LABS: ANION GAP 13.2 MEQ/L (5-15); Calcium 9.6 mg/dL (8.4-10.2); Creatinine 1 1.18 mg/dL (0.66-1.25); EST GLOMERULAR FILTRATION RATE 68.9 ML/MIN; MAGNESIUM 1.9 mg/dL (1.6-2.3); Potassium 4.2 mmol/L (3.5-5.1)
[2024-03-07] MEDS: HUMALOG SQ PRN (19:55)
[2024-03-07 20:12] LABS: ANION GAP 11.7 MEQ/L (5-15); Calcium 9.5 mg/dL (8.4-10.2); Creatinine 1 1.14 mg/dL (0.66-1.25); EST GLOMERULAR FILTRATION RATE 71.8 ML/MIN; MAGNESIUM 1.9 mg/dL (1.6-2.3); Potassium 4.3 mmol/L (3.5-5.1)
[2024-03-07] MEDS: Coreg 3.125 MG PO SCH (23:00)
[2024-03-08 00:55] LABS: ANION GAP 11.1 MEQ/L (5-15); Calcium 9.1 mg/dL (8.4-10.2); Creatinine 1 1.13 mg/dL (0.66-1.25); EST GLOMERULAR FILTRATION RATE 72.6 ML/MIN; Potassium 4.1 mmol/L (3.5-5.1)
[2024-03-08 05:48] LABS: Hematocrit 32.5 % (42-50); Hemoglobin 10.8 g/dL (12.5-18.0); Mean Cell Volume 86.9 fL (78-100); Mean Corpuscular Hemoglobin 28.9 pg (26-32); Mean Corpuscular Hgb Concent. 33.2 g/dL (32-36); Mean Platelet Volume 11.1 fL (7.5-11.0); Platelet Count 254 x10^3/uL (150-450); Red Blood Count 3.74 x10^6/uL (4.1-5.6); Red Cell Distribution Width 13.4 % (11.5-14.0)
[2024-03-08 06:03] LABS: ANION GAP 14.1 MEQ/L (5-15); Calcium 9.5 mg/dL (8.4-10.2); Creatinine 1 1.17 mg/dL (0.66-1.25); EST GLOMERULAR FILTRATION RATE 69.6 ML/MIN; MAGNESIUM 1.9 mg/dL (1.6-2.3); Potassium 3.9 mmol/L (3.5-5.1)
[2024-03-08 08:18] VITALS: RESP 16
--- NOTE | 2024-03-08 08:28 | PCM.DS ---
Discharge Summary Date of Admission: 03/07/24 07:49 Date of Discharge: 03/08/24 Admitting Physician: JARED CHOI MD Consults: Consults on Case 03/07/24 10:52 Consult Podiatry ROUTINE Primary Care Provider: DIANA,RUSTY Allergies Allergies codeine Adverse Reaction (Severe, Verified 03/07/24 03:07) Vomiting hydrocodone bitartrate [From Vicodin] Adverse Reaction (Severe, Verified 03/07/24 03:07) Vomiting propoxyphene [From Darvocet-N 100] Adverse Reaction (Verified 03/07/24 03:07) Hospital Summary - Hospital Course Hospital Course: 03/07/24 is a 63 year old male with PMHX of Type II DM- insulin dependent, peripheral neuropathy, and recent left toe amputation. Pt presented to the emergency department with intermittent nausea and vomiting that began last evening approximately 7 PM. He has intermittently been vomiting even until this morning. He was mildly lethargic at home and family was concerned so they brought him in by private vehicle. His blood sugar on arrival was 415 by Accu-Check. Patient recently had a left foot toe amputation at [facility] but unable to tell me why. Pt is a poor historian. He does have mild abdominal pain that is diffuse, generalized. CT abd does show 1. Minimal fullness of the left renal pelvicalyceal system without any obvious visualized obstructing radiodense calculus. If needed, US follow-up is advised. 2. Mild hepatomegaly. Laboratory correlation is advised.3. A small hiatus hernia. US ordered for further evaluation. DKA protocol started in ER and will continue. Pt on insulin gtt and repeat labs ordered. Pt thinks he may have forgot to take his insulin. he is feeling better since admission and no longer has N/V. He denies CP, SOB, N/V/D. 03/08/24 Pt is resting in bed. he is eating and drinking well. Gap is closed and restarted on home insulin dosing yesterday evening. Discussed case with podiatry and he would like him to go home on augmentin for 14 days. Will also send in probiotics. Discussed he has to follow his insulin regimen at home or he will end up right back in the hospital. Abd pain has resolved. He denies CP, SOB, N/V/D. - Vitals & Intake/Output Vital Signs: Vital Signs Temperature 97.8 F 03/08/24 08:00 Pulse Rate 74 03/08/24 08:00 Respiratory Rate 16 03/08/24 08:00 Blood Pressure 136/79 03/08/24 08:00 O2 Sat by Pulse Oximetry 96 03/08/24 08:00 Intake & Output: Intake & Output 03/05/24 03/06/24 03/07/24 03/08/24 11:59 11:59 11:59 11:59 Intake Total 2016 Output Total 975 Balance 1041 Weight 77.7 kg 77.7 kg - Lab Result Diagrams: 03/08/24 05:40 03/08/24 05:40 Lab Results-Last 24 Hrs: Lab Results-Last 24 Hours 03/07/24 03/07/24 03/07/24 Range/Units 08:15 08:15 08:15 WBC (4.0-10.5) x10^3/uL RBC (4.1-5.6) x10^6/uL Hgb (12.5-18.0) g/dL Hct (42-50) % MCV (78-100) fL MCH (26-32) pg MCHC (32-36) g/dL RDW (11.5-14.0) % Plt Count (150-450) x10^3/uL MPV (7.5-11.0) fL Sodium 142 (135-145) mmol/L Potassium 4.5 (3.5-5.1) mmol/L Chloride 106 (98-107) mmol/L Carbon Dioxide 21 L (22-30) mmol/L Anion Gap 20.2 H (5-15) MEQ/L BUN 33 H (9-20) mg/dL Creatinine 1.37 H (0.66-1.25) mg/dL Estimated GFR 57.6 ML/MIN Glucose 309 H (74-106) mg/dL POC Glucometer (74 to 106) mg/dL Calcium 10.2 (8.4-10.2) mg/dL Phosphorus 4.3 (2.5-4.5) mg/dL Magnesium 2.0 (1.6-2.3) mg/dL Total Bilirubin 1.10 (0.2-1.3) mg/dL AST 18 (17-59) U/L ALT 17 (0-50) U/L Alkaline Phosphatase 80 (38-126) U/L Ammonia (9-30) umol/L Troponin I < 0.012 (0.000-0.033) ng/mL Serum Total Protein 7.3 (6.3-8.2) g/dL Albumin 4.2 (3.5-5.0) g/dL Prealbumin (17.6-36.0) mg/dL Monoscreen (NEGATIVE) 03/07/24 03/07/24 03/07/24 Range/Units 08:15 09:04 10:06 WBC (4.0-10.5) x10^3/uL RBC (4.1-5.6) x10^6/uL Hgb (12.5-18.0) g/dL Hct (42-50) % MCV (78-100) fL MCH (26-32) pg MCHC (32-36) g/dL RDW (11.5-14.0) % Plt Count (150-450) x10^3/uL MPV (7.5-11.0) fL Sodium (135-145) mmol/L Potassium (3.5-5.1) mmol/L Chloride (98-107) mmol/L Carbon Dioxide (22-30) mmol/L Anion Gap (5-15) MEQ/L BUN (9-20) mg/dL Creatinine (0.66-1.25) mg/dL Estimated GFR ML/MIN Glucose (74-106) mg/dL POC Glucometer 234 H 186 H (74 to 106) mg/dL Calcium (8.4-10.2) mg/dL Phosphorus (2.5-4.5) mg/dL Magnesium (1.6-2.3) mg/dL Total Bilirubin (0.2-1.3) mg/dL AST (17-59) U/L ALT (0-50) U/L Alkaline Phosphatase (38-126) U/L Ammonia (9-30) umol/L Troponin I (0.000-0.033) ng/mL Serum Total Protein (6.3-8.2) g/dL Albumin (3.5-5.0) g/dL Prealbumin 19.98 (17.6-36.0) mg/dL Monoscreen (NEGATIVE) 03/07/24 03/07/24 03/07/24 Range/Units 11:11 12:08 12:44 WBC (4.0-10.5) x10^3/uL RBC (4.1-5.6) x10^6/uL Hgb (12.5-18.0) g/dL Hct (42-50) % MCV (78-100) fL MCH (26-32) pg MCHC (32-36) g/dL RDW (11.5-14.0) % Plt Count (150-450) x10^3/uL MPV (7.5-11.0) fL Sodium (135-145) mmol/L Potassium (3.5-5.1) mmol/L Chloride (98-107) mmol/L Carbon Dioxide (22-30) mmol/L Anion Gap (5-15) MEQ/L BUN (9-20) mg/dL Creatinine (0.66-1.25) mg/dL Estimated GFR ML/MIN Glucose (74-106) mg/dL POC Glucometer 131 H 117 H (74 to 106) mg/dL Calcium (8.4-10.2) mg/dL Phosphorus (2.5-4.5) mg/dL Magnesium (1.6-2.3) mg/dL Total Bilirubin (0.2-1.3) mg/dL AST (17-59) U/L ALT (0-50) U/L Alkaline Phosphatase (38-126) U/L Ammonia (9-30) umol/L Troponin I < 0.012 (0.000-0.033) ng/mL Serum Total Protein (6.3-8.2) g/dL Albumin (3.5-5.0) g/dL Prealbumin (17.6-36.0) mg/dL Monoscreen (NEGATIVE) 03/07/24 03/07/24 03/07/24 Range/Units 12:44 12:44 12:44 WBC (4.0-10.5) x10^3/uL RBC (4.1-5.6) x10^6/uL Hgb (12.5-18.0) g/dL Hct (42-50) % MCV (78-100) fL MCH (26-32) pg MCHC (32-36) g/dL RDW (11.5-14.0) % Plt Count (150-450) x10^3/uL MPV (7.5-11.0) fL Sodium 144 (135-145) mmol/L Potassium 4.1 (3.5-5.1) mmol/L Chloride 109 H (98-107) mmol/L Carbon Dioxide 27 (22-30) mmol/L Anion Gap 12.2 (5-15) MEQ/L BUN 31 H (9-20) mg/dL Creatinine 1.19 (0.66-1.25) mg/dL Estimated GFR 68.2 ML/MIN Glucose 122 H (74-106) mg/dL POC Glucometer (74 to 106) mg/dL Calcium 9.9 (8.4-10.2) mg/dL Phosphorus (2.5-4.5) mg/dL Magnesium 1.9 (1.6-2.3) mg/dL Total Bilirubin (0.2-1.3) mg/dL AST (17-59) U/L ALT (0-50) U/L Alkaline Phosphatase (38-126) U/L Ammonia < 9 L (9-30) umol/L Troponin I (0.000-0.033) ng/mL Serum Total Protein (6.3-8.2) g/dL Albumin (3.5-5.0) g/dL Prealbumin (17.6-36.0) mg/dL Monoscreen NEGATIVE (NEGATIVE) 03/07/24 03/07/24 03/07/24 Range/Units 13:07 14:04 15:19 WBC (4.0-10.5) x10^3/uL RBC (4.1-5.6) x10^6/uL Hgb (12.5-18.0) g/dL Hct (42-50) % MCV (78-100) fL MCH (26-32) pg MCHC (32-36) g/dL RDW (11.5-14.0) % Plt Count (150-450) x10^3/uL MPV (7.5-11.0) fL Sodium (135-145) mmol/L Potassium (3.5-5.1) mmol/L Chloride (98-107) mmol/L Carbon Dioxide (22-30) mmol/L Anion Gap (5-15) MEQ/L BUN (9-20) mg/dL Creatinine (0.66-1.25) mg/dL Estimated GFR ML/MIN Glucose (74-106) mg/dL POC Glucometer 106 122 H 143 H (74 to 106) mg/dL Calcium (8.4-10.2) mg/dL Phosphorus (2.5-4.5) mg/dL Magnesium (1.6-2.3) mg/dL Total Bilirubin (0.2-1.3) mg/dL AST (17-59) U/L ALT (0-50) U/L Alkaline Phosphatase (38-126) U/L Ammonia (9-30) umol/L Troponin I (0.000-0.033) ng/mL Serum Total Protein (6.3-8.2) g/dL Albumin (3.5-5.0) g/dL Prealbumin (17.6-36.0) mg/dL Monoscreen (NEGATIVE) 03/07/24 03/07/24 03/07/24 Range/Units 16:28 16:35 17:24 WBC (4.0-10.5) x10^3/uL RBC (4.1-5.6) x10^6/uL Hgb (12.5-18.0) g/dL Hct (42-50) % MCV (78-100) fL MCH (26-32) pg MCHC (32-36) g/dL RDW (11.5-14.0) % Plt Count (150-450) x10^3/uL MPV (7.5-11.0) fL Sodium 143 (135-145) mmol/L Potassium 4.2 (3.5-5.1) mmol/L Chloride 109 H (98-107) mmol/L Carbon Dioxide 26 (22-30) mmol/L Anion Gap 13.2 (5-15) MEQ/L BUN 28 H (9-20) mg/dL Creatinine 1.18 (0.66-1.25) mg/dL Estimated GFR 68.9 ML/MIN Glucose 157 H (74-106) mg/dL POC Glucometer 153 H 159 H (74 to 106) mg/dL Calcium 9.6 (8.4-10.2) mg/dL Phosphorus (2.5-4.5) mg/dL Magnesium 1.9 (1.6-2.3) mg/dL Total Bilirubin (0.2-1.3) mg/dL AST (17-59) U/L ALT (0-50) U/L Alkaline Phosphatase (38-126) U/L Ammonia (9-30) umol/L Troponin I (0.000-0.033) ng/mL Serum Total Protein (6.3-8.2) g/dL Albumin (3.5-5.0) g/dL Prealbumin (17.6-36.0) mg/dL Monoscreen (NEGATIVE) 03/07/24 03/07/24 03/07/24 Range/Units 19:33 19:57 21:34 WBC (4.0-10.5) x10^3/uL RBC (4.1-5.6) x10^6/uL Hgb (12.5-18.0) g/dL Hct (42-50) % MCV (78-100) fL MCH (26-32) pg MCHC (32-36) g/dL RDW (11.5-14.0) % Plt Count (150-450) x10^3/uL MPV (7.5-11.0) fL Sodium 140 (135-145) mmol/L Potassium 4.3 (3.5-5.1) mmol/L Chloride 108 H (98-107) mmol/L Carbon Dioxide 25 (22-30) mmol/L Anion Gap 11.7 (5-15) MEQ/L BUN 27 H (9-20) mg/dL Creatinine 1.14 (0.66-1.25) mg/dL Estimated GFR 71.8 ML/MIN Glucose 219 H (74-106) mg/dL POC Glucometer 210 H 126 H (74 to 106) mg/dL Calcium 9.5 (8.4-10.2) mg/dL Phosphorus (2.5-4.5) mg/dL Magnesium 1.9 (1.6-2.3) mg/dL Total Bilirubin (0.2-1.3) mg/dL AST (17-59) U/L ALT (0-50) U/L Alkaline Phosphatase (38-126) U/L Ammonia (9-30) umol/L Troponin I (0.000-0.033) ng/mL Serum Total Protein (6.3-8.2) g/dL Albumin (3.5-5.0) g/dL Prealbumin (17.6-36.0) mg/dL Monoscreen (NEGATIVE) 03/07/24 03/08/24 03/08/24 Range/Units 23:32 00:30 03:39 WBC (4.0-10.5) x10^3/uL RBC (4.1-5.6) x10^6/uL Hgb (12.5-18.0) g/dL Hct (42-50) % MCV (78-100) fL MCH (26-32) pg MCHC (32-36) g/dL RDW (11.5-14.0) % Plt Count (150-450) x10^3/uL MPV (7.5-11.0) fL Sodium 139 (135-145) mmol/L Potassium 4.1 (3.5-5.1) mmol/L Chloride 110 H (98-107) mmol/L Carbon Dioxide 22 (22-30) mmol/L Anion Gap 11.1 (5-15) MEQ/L BUN 26 H (9-20) mg/dL Creatinine 1.13 (0.66-1.25) mg/dL Estimated GFR 72.6 ML/MIN Glucose 124 H (74-106) mg/dL POC Glucometer 119 H 156 H (74 to 106) mg/dL Calcium 9.1 (8.4-10.2) mg/dL Phosphorus (2.5-4.5) mg/dL Magnesium 2.0 (1.6-2.3) mg/dL Total Bilirubin (0.2-1.3) mg/dL AST (17-59) U/L ALT (0-50) U/L Alkaline Phosphatase (38-126) U/L Ammonia (9-30) umol/L Troponin I (0.000-0.033) ng/mL Serum Total Protein (6.3-8.2) g/dL Albumin (3.5-5.0) g/dL Prealbumin (17.6-36.0) mg/dL Monoscreen (NEGATIVE) 0503/08/24 03/08/24 Range/Units 05:40 05:40 07:10 WBC 9.0 (4.0-10.5) x10^3/uL RBC 3.74 L (4.1-5.6) x10^6/uL Hgb 10.8 L (12.5-18.0) g/dL Hct 32.5 L (42-50) % MCV 86.9 (78-100) fL MCH 28.9 (26-32) pg MCHC 33.2 (32-36) g/dL RDW 13.4 (11.5-14.0) % Plt Count 254 (150-450) x10^3/uL MPV 11.1 H (7.5-11.0) fL Sodium 142 (135-145) mmol/L Potassium 3.9 (3.5-5.1) mmol/L Chloride 108 H (98-107) mmol/L Carbon Dioxide 23 (22-30) mmol/L Anion Gap 14.1 (5-15) MEQ/L BUN 23 H (9-20) mg/dL Creatinine 1.17 (0.66-1.25) mg/dL Estimated GFR 69.6 ML/MIN Glucose 112 H (74-106) mg/dL POC Glucometer 139 H (74 to 106) mg/dL Calcium 9.5 (8.4-10.2) mg/dL Phosphorus (2.5-4.5) mg/dL Magnesium 1.9 (1.6-2.3) mg/dL Total Bilirubin (0.2-1.3) mg/dL AST (17-59) U/L ALT (0-50) U/L Alkaline Phosphatase (38-126) U/L Ammonia (9-30) umol/L Troponin I (0.000-0.033) ng/mL Serum Total Protein (6.3-8.2) g/dL Albumin (3.5-5.0) g/dL Prealbumin (17.6-36.0) mg/dL Monoscreen (NEGATIVE) Micro Results-Entire Visit: Accuchecks Date 03/08/24 Date 03/08/24 Date 03/07/24 Date 03/07/24 Time 03:40 Time 23:30 Time 21:30 - Radiology Exams Ordered Rad Exams-Entire Visit: Radiology Procedures Category Date Time Status ABDOMEN AND PELVIS W/0 CONTRAS [CT] Stat Exams 03/07/24 03:48 Completed UPPER ABDOMEN [US] Routine Exams 03/07/24 08:50 Completed - Procedures and Test Procedures and Tests throughout Hospitalization: Therapy Orders & Screens 03/07/24 08:00 EKG REPEAT IN AM Comment: 03/07/24 08:10 Oxygen Nasal Cannula 2 lpm Comment: 2-4L/NS TO KEEP SATS >95% Diagnosis: DKA 03/07/24 09:31 OT Screen per Nursing Assess ONCE Comment: Protocol Order Physician Instructions: Greater than 3 points order OT Admission Screening Reason For Exam: Triggered on Admission Diagnosis: DKA Open Wound/Cellutlitis/Pressure Ulcers: Yes: left foot Acute Fx/ORIF/Change in wt bearing status: No Severe MUSCULOSKELETAL pain: No ADL Dysfunction: No Acute CVA w/Hemiparesis/Hemiplegia: No Decreased Functional Mobility/Strength: No Sprain/Strain: No Acute Post-op Mobility Dysfunction: No Total Points: 5 PT Screen per Nursing Assess ONCE Comment: Protocol Order Physician Instructions: Greater than 3 points order PT Admission Screenin Reason For Exam: Triggered on Admission Diagnosis: DKA Open Wound/Cellutlitis/Pressure Ulcers: Yes: left foot Acute Fx/ORIF/Change in wt bearing status: No Severe MUSCULOSKELETAL pain: No ADL Dysfunction: No Acute CVA w/Hemiparesis/Hemiplegia: No Decreased Functional Mobility/Strength: No Sprain/Strain: No Acute Post-op Mobility Dysfunction: No Total Points: 5 Discharge Exam General Appearance: no apparent distress, alert Neurologic Exam: alert, oriented x 3, cooperative, normal mood/affect, nml cerebellar function, sensation nml, No motor deficits Eye Exam: PERRL, EOMI, eyes nml inspection Ears, Nose, Throat Exam: normal ENT inspection, pharynx normal, moist mucous membranes Neck Exam: normal inspection, non-tender, supple, full range of motion Respiratory Exam: normal breath sounds, lungs clear, No respiratory distress Cardiovascular Exam: regular rate/rhythm, normal heart sounds Gastrointestinal/Abdomen Exam: soft, No tenderness, No mass Male Genitalia Exam: deferred Rectal Exam: deferred Back Exam: normal inspection, normal range of motion, No CVA tenderness, No vertebral tenderness Extremity Exam: normal inspection, normal range of motion Skin Exam: normal color, warm, dry Wound Assessment: Skin/Wound Assessment Wound/Incision Assessment Start: 03/07/24 09:31 Text: Status: Active Freq: Q6H Protocol: Document 03/08/24 08:00 WILDER (Rec: 03/08/24 08:16 WILDER [id number]) Wound/Incision Assessment Left Foot Wound Assessment Shift Assessment Wound Type Incision Wound Stage Non Pressure Wound Dressing Status Dry & Intact Drainage Amount None Comment DRESSING IN PLACE Final Diagnosis/Problem List - Final Discharge Diagnosis/Problem (1) DKA (diabetic ketoacidoses) Current Visit: Yes Status: Acute Code(s): E11.10 - TYPE 2 DIABETES MELLITUS WITH KETOACIDOSIS WITHOUT COMA (2) Hepatomegaly Current Visit: Yes Status: Acute Code(s): R16.0 - HEPATOMEGALY, NOT ELSEWHERE CLASSIFIED (3) SYED (acute kidney injury) Current Visit: No Status: Acute Code(s): N17.9 - ACUTE KIDNEY FAILURE, UNS PECIFIED (4) Abdominal pain Current Visit: No Status: Acute Code(s): R10.9 - UNSPECIFIED ABDOMINAL PAIN (5) Hyperkalemia Current Visit: No Status: Chronic Code(s): E87.5 - HYPERKALEMIA (6) Peripheral neuropathy Current Visit: No Status: Chronic Code(s): G62.9 - POLYNEUROPATHY, UNSPECIFIED (7) Hypertension Current Visit: Yes Status: Acute Code(s): I10 - ESSENTIAL (PRIMARY) HYPERTENSION (8) Amputated toe of left foot Current Visit: Yes Status: Acute Assessment & Plan: (1) DKA (diabetic ketoacidoses) Current Visit: Yes Status: Acute Qualifiers: Diabetes mellitus type: type 2 Diabetes mellitus complication detail: without coma Qualified Code(s): E11.10 - Type 2 diabetes mellitus with ketoacidosis without coma Assessment & Plan: - DKA protocol - ICU - tele - repeat labs this AM - Zofran for nausea/ vomiting - NPO 03/08 - Diet advanced from clear liquid last night to carb consistent and doing well. - N/V resolved Code(s): E11.10 - TYPE 2 DIABETES MELLITUS WITH KETOACIDOSIS WITHOUT COMA (2) Hepatomegaly Current Visit: Yes Status: Acute Assessment & Plan: - as seen on CT - US 03/07/24 Impression: Hepatosplenomegaly. Mild left renal pelvocaliectasis. Remaining abdominal sonogram is negative. 03/08- labs pending for further eval- will need to f/u with PCP for results Code(s): R16.0 - HEPATOMEGALY, NOT ELSEWHERE CLASSIFIED (3) SYED (acute kidney injury) Current Visit: No Status: Acute Assessment & Plan: - Creat 1.53- baseline normal - repeat labs 03/08 - resolved Code(s): N17.9 - ACUTE KIDNEY FAILURE, UNSPECIFIED (4) Abdominal pain Current Visit: No Status: Acute Assessment & Plan: - CT abd 03/07/24 IMPRESSION: 1. Minimal fullness of the left renal pelvicalyceal system without any obvious visualized obstructing radiodense calculus. If needed, US follow-up is advised. 2. Mild hepatomegaly. Laboratory correlation is advised. 3. A small hiatus hernia. 4. The rest of the study was unremarkable. - US for further evaluation of CT- reviewed - Morphine gave in ER - Tylenol for pain PRN 03/08 - resolved Code(s): R10.9 - UNSPECIFIED ABDOMINAL PAIN (5) Hyperkalemia Current Visit: No Status: Chronic Assessment & Plan: - K+5.2 in ER - recheck labs since IV fluids and DKA protocol started- resolved Code(s): E87.5 - HYPERKALEMIA (6) Peripheral neuropathy Current Visit: No Status: Chronic Assessment & Plan: - Continue gabapentin Code(s): G62.9 - POLYNEUROPATHY, UNSPECIFIED (7) Hypertension Current Visit: Yes Status: Acute Assessment & Plan: - acute - 2:2 DKA/ N/V? - Hydralazine PRN - continue amlodipine - added coreg and lisinopril- had been taking in the past 03/08 - improved with meds added- will continue OP Code(s): I10 - ESSENTIAL (PRIMARY) HYPERTENSION (8) Amputated toe of left foot Current Visit: Yes Status: Acute Assessment & Plan: - recent left foot toe amputation - adds to complexity - podiatry consulted - will d/c with antibiotics and probiotics Code(s): S98.132A - COMPLETE TRAUMATIC AMPUTATION OF ONE LEFT LESSER TOE, INIT - Discharge Discharge Date: 03/08/24 Disposition: Home, Self-Care Condition: Stable Prescriptions: New Carvedilol 3.125 mg [Coreg 3.125 MG] 3.125 mg PO BID 30 Days #30 tablet Lisinopril 10 mg [Zestril 10 MG] 10 mg PO DAILY 30 Days #30 tablet Continue Insulin Aspart [NovoLOG Insulin] 1 units SQ UD Insulin Glargine [Lantus Insulin] 50 units SQ QAM Gabapentin 600 mg PO TID Amlodipine Besylate [Norvasc] 10 mg PO DAILY Multivitamins,Therapeutic Tab* [Theragran Multivitamin] 1 tab PO DAILY Instructions: Diabetic ketoacidosis Additional Instructions: Continue dressing changes as ordered by podiatry. Follow up with: ADDY BEATTY DPM [ACTIVE STAFF] - 03/14/24 1:30 pm RUSTY ORTIZ MD [Primary Care Provider] - 03/17/24 4:00 pm ([place] [facility]) Forms: Discharge Instructions
[2024-03-08] MEDS: Lantus Insulin SQ SCH (08:32)
[2024-03-08 09:12] LABS: HBsAg Screen Negative (Negative); HCV Ab Non Reactive (Non Reactive); Hep A Ab, IgM Negative (Negative); Hep B Core Ab, IgM Negative (Negative)
[2024-03-08 11:52] VITALS: BP 144/83; PULSE 79; TEMP 98.5; O2SAT 97
[2024-03-08 12:10] LABS: HIV Screen 4th Generation wRfx Non Reactive (Non Reactive)
== END 2024-03-08 12:00 | disposition home or self-care (01) ==
LOC: ED 03:00 → ICU 07:49 → INTOOBSV 07:49
PROVIDERS: ADMIT Internal Medicine; ATTEND Internal Medicine
DX: E11.10 Type 2 diabetes mellitus with ketoacidosis without coma (principal); E11.65 Type 2 diabetes mellitus with hyperglycemia; G62.9 Polyneuropathy, unspecified; S98.132A Complete traumatic amputation of one left lesser toe, initial encounter; E11.628 Type 2 diabetes mellitus with other skin complications; R16.0 Hepatomegaly, not elsewhere classified; N17.9 Acute kidney failure, unspecified; R10.9 Unspecified abdominal pain; E87.5 Hyperkalemia; I10 Essential (primary) hypertension; Z79.899 Other long term (current) drug therapy
CPT/HCPCS: 0241U; 36000; 36415; 74176; 76700; 80048; 80053; 80074; 81001; 82140; 82150; 82947; 83605; 83690; 83735; 84100; 84134; 84484; 85025; 85027; 86308; 87389; 93005; 96360; 96374; 96375; 99285; 99291; Q3014; 93268; 99222; J0360; J1650; J1815; J1817; J2270; J2405; A9270-GY; G0378

== ENCOUNTER 2024-04-01 19:14 | Observation (INO) | payer OTHER ==
--- NOTE | 2024-04-01 19:17 | ERPHSYRPT ---
- History of Present Illness Time Seen by Provider: 04/01/24 19:16 Historian: patient, family Exam Limitations: no limitations Physician History: This is a 63-year-old diabetic white male who is insulin-dependent and is a patient of Dr. Ortiz and is noncompliant with his medication. Patient arrives by private vehicle secondary to episodes of nausea and vomiting today without diarrhea. Patient's blood sugar at home read "high". Patient has a history of recurrent DKA. On arrival to the emergency department the Accu-Chek reading was 558. Patient has history of hypertension, seizure disorder and insulin- dependent diabetes. Patient did take his 30 units of Humalog earlier in the afternoon. Timing/Duration: today Activities at Onset: none Abdominal Pain Onset Location: other (No complaints of abdominal pain) Pain Radiation: no radiation Severity of Pain-Max: none Severity of Pain-Current: none Modifying Factors: Improves With: vomiting Associated Symptoms: loss of appetite, nausea, vomiting, weakness Previous symptoms: same symptoms as today, no recent treatment Allergies/Adverse Reactions: codeine Adverse Reaction (Severe, Verified 04/01/24 19:23) Vomiting hydrocodone bitartrate [From Vicodin] Adverse Reaction (Severe, Verified 04/01/24 19:23) Vomiting propoxyphene [From Darvocet-N 100] Adverse Reaction (Verified 04/01/24 19:23) Home Medications: Insulin Glargine [Lantus Insulin] 50 units SQ QAM 03/25/19 [History] Gabapentin 600 mg PO TID 04/01/23 [History] Amlodipine Besylate [Norvasc] 10 mg PO DAILY 03/07/24 [History] Multivitamins,Therapeutic Tab* [Theragran Multivitamin] 1 tab PO DAILY 03/07/24 [History] Insulin Lispro [Humalog Kwikpen U-100] 1 unit SQ ACHS 04/01/24 [History] Hx Tetanus, Diphtheria Vaccination/Date Given: Yes Hx Influenza Vaccination/Date Given: No Hx Pneumococcal Vaccination/Date Given: No Travel Risk - International Travel Have you traveled outside of the country in past 3 weeks: No - Emerging Infectious Disease Are you exhibiting symptoms associated with any current EIDs: Yes Symptoms: Abdominal Pain, Vomitting - Review of Systems Constitutional: Weakness Eyes: No Symptoms Ears, Nose, & Throat: No Symptoms Respiratory: No Symptoms Cardiac: No Symptoms Abdominal/Gastrointestinal: Nausea, Vomiting, Appetite Changes, No Abdominal Pain Genitourinary Symptoms: No Symptoms Musculoskeletal: No Symptoms Skin: No Symptoms Neurological: No Symptoms Psychological: No Symptoms Endocrine: No Symptoms Hematologic/Lymphatic: No Symptoms Immunological/Allergic: No Symptoms All Other Systems: Reviewed and Negative - Past Medical History Pertinent Past Medical History: Yes Neurological History: Seizures ENT History: No Pertinent History Cardiac History: No Pertinent History Respiratory History: No Pertinent History Endocrine Medical History: Diabetes Type II Musculoskeletal History: No Pertinent History GI Medical History: No Pertinent History History: No Pertinent History Psycho-Social History: No Pertinent History Male Reproductive Disorders: No Pertinent History Other Medical History: FX L LEG AND FOOT subsequent infection. diarrhea x3 weeks, was hospitalized for gi sx. gangrene, sepsis 2014 - Past Surgical History Past Surgical History: Yes Neuro Surgical History: No Pertinent History Cardiac: No Pertinent History Respiratory: No Pertinent History Gastrointestinal: Cholecystectomy, Hernia Repair Genitourinary: No Pertinent History Musculoskeletal: Orthopedic Surgery Male Surgical History: No Pertinent History Other Surgical History: right femur fixed at age 15. left foot broke at age 20. left leg and foot surgery ,,I&D of left foot, polyps removed - Social History Smoking Status: Never smoker How long have you smoked: 1 yr Exposure to second hand smoke: No Drug Use: none Patient Lives Alone: No - Social Determinants of Health Will the patient participate in the screening: Declined to provide Do you worry about a steady place to live?: No In the past 12 months,have you had to go without utilities?: No Transportation Issues: No Has anyone in your support network made you feel unsafe?: No Have you or anyone in your house had to go without enough: No - Nursing Vital Signs Nursing Vital Signs: Initial Vital Signs Temperature 98.3 F 04/01/24 19:20 Pulse Rate 111 H 04/01/24 19:20 Respiratory Rate 16 04/01/24 19:20 Blood Pressure 198/98 04/01/24 19:20 O2 Sat by Pulse Oximetry 98 04/01/24 19:20 Pain Scale Pain Intensity 0 - Physical Exam General Appearance: mild distress, alert, anxiety Eye Exam: PERRL/EOMI, eyes nml inspection Ears, Nose, Throat Exam: normal ENT inspection, dry mucous membranes Neck Exam: normal inspection, non-tender, supple, full range of motion Respiratory Exam: normal breath sounds, lungs clear, airway intact, No chest tenderness, No respiratory distress Cardiovascular Exam: tachycardia Gastrointestinal/Abdomen Exam: soft, normal bowel sounds, No tenderness Rectal Exam: not done Back Exam: normal inspection, normal range of motion, No CVA tenderness, No vertebral tenderness Extremity Exam: normal inspection, normal range of motion, pelvis stable Neurologic Exam: alert, oriented x 3, cooperative, 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 II-XII nml as tested, nml cerebellar function, nml station & gait, sensation nml Skin Exam: normal color, warm, dry Lymphatic Exam: No adenopathy SpO2 Interpretation: normal O2 Delivery: Room Air - Course Nursing assessment & vital signs reviewed: Yes Ordered Tests: Active Orders 24 hr Category Date Time Status IV Insertion STAT Care 04/01/24 19:31 Active AMYLASE Stat Lab 04/01/24 19:44 Completed CBC W DIFF Stat Lab 04/01/24 19:44 Completed CMP Stat Lab 04/01/24 19:44 Completed ETHYL ALCOHOL Stat Lab 04/01/24 19:50 Completed LIPASE Stat Lab 04/01/24 19:44 Completed Lactic Acid Stat Lab 04/01/24 19:31 Completed Lactic Acid Stat Lab 04/01/24 21:50 Received MAGNESIUM Stat Lab 04/01/24 19:50 Completed POCT GLUCOSE Stat Lab 04/01/24 19:26 Completed UA W/RFX UR CULTURE Stat Lab 04/01/24 20:15 Completed Transfer Order Routine Transfer 04/01/24 Ordered Medication Summary Discontinued Medications Generic Name Dose Route Start Last Admin Trade Name Quintenq PRN Reason Stop Dose Admin Sodium Chloride 1,000 mls @ 999 mls/hr 04/01/24 19:31 04/01/24 21:29 Sodium Chloride 0.9% 1000 Ml IV 04/01/24 20:31 Infused .Q1H1M STA Infusion Sodium Chloride Confirm 04/01/24 19:44 Sodium Chloride 0.9% 1000 Ml Administered 04/01/24 19:45 Dose 1,000 mls @ ud .ROUTE .STK-MED ONE Lactated Ringer's 1,000 mls @ 999 mls/hr 04/01/24 20:50 04/01/24 21:02 Lactated Ringers IV 04/01/24 21:50 999 mls/hr .Q1H1M ONE Administration Lactated Ringer's Confirm 04/01/24 20:59 Lactated Ringers Administered 04/01/24 21:00 Dose 1,000 mls @ ud IV .STK-MED ONE Insulin Human Regular 15 unit 04/01/24 20:16 04/01/24 21:02 Insulin Regular, Human 1 Unit IV 04/01/24 20:17 15 unit STAT ONE Administration Insulin Human Regular Confirm 04/01/24 21:01 Insulin Regular, Human 1 Unit Administered 04/01/24 21:02 Dose 15 unit .ROUTE .STK-MED ONE Labetalol HCl 10 mg 04/01/24 21:04 04/01/24 21:28 Labetalol Hcl 20 Mg/4 Ml Disp.Syringe IV 04/01/24 21:05 Not Given STAT ONE Labetalol HCl Confirm 04/01/24 21:11 Labetalol Hcl 20 Mg/4 Ml Disp.Syringe Administered 04/01/24 21:12 Dose 20 mg IV .STK-MED ONE Ondansetron HCl 4 mg 04/01/24 19:31 04/01/24 19:46 Ondansetron Hcl 4 Mg/2 Ml Vial IV 04/01/24 19:32 4 mg STAT ONE Administration Ondansetron HCl Confirm 04/01/24 19:44 Ondansetron Hcl 4 Mg/2 Ml Vial Administered 04/01/24 19:45 Dose 4 mg .ROUTE .STK-MED ONE Pantoprazole Sodium 40 mg 04/01/24 19:31 04/01/24 19:47 Pantoprazole 40 Mg Vial IV 04/01/24 19:32 40 mg STAT ONE Administration Pantoprazole Sodium Confirm 04/01/24 19:44 Pantoprazole 40 Mg Vial Administered 04/01/24 19:45 Dose 40 mg IV .STK-MED ONE Prochlorperazine Edisylate 5 mg 04/01/24 20:50 04/01/24 21:02 Prochlorperazine Edisylate 10 Mg/2 Ml Vial IV 04/01/24 20:51 5 mg STAT ONE Administration Prochlorperazine Edisylate Confirm 04/01/24 20:59 Prochlorperazine Edisylate 10 Mg/2 Ml Vial Administered 04/01/24 21:00 Dose 10 mg .ROUTE .STK-MED ONE Lab/Rad Data: Laboratory Result Diagrams 04/01/24 19:44 04/01/24 19:44 Laboratory Results 04/01/24 04/01/24 04/01/24 Range/Units 20:15 19:50 19:44 WBC (4.23-9.07) x10^3/uL RBC (4.63-6.08) x10^6/uL Hgb (13.7-17.5) g/dL Hct (40.1-51.0) % MCV (79.0-92.2) fL MCH (25.7-32.2) pg MCHC (32.3-36.5) g/dL RDW (11.6-14.4) % Plt Count (163-337) x10^3/uL MPV (9.4-12.4) fL Gran % (34.0-67.9) % Immature Gran % (Auto) (0.001-0.429) % Nucleat RBC Rel Count (0.00-0.2) % Eos # (Auto) (0.04-0.54) x10^3/uL Immature Gran # (Auto) (0.001-0.031) x10^3u/L Absolute Lymphs (auto) (1.32-3.57) x10^3/uL Absolute Monos (auto) (0.30-0.82) x10^3/uL Absolute Nucleated RBC (0.00-0.012) x10^3u/L Lymphocytes % (21.8-53.1) % Monocytes % (5.3-12.2) % Eosinophils % (0.8-7.0) % Basophils % (0.2-1.2) % Absolute Granulocytes (1.78-5.38) x10^3/uL Basophils # (0.01-0.08) x10^3/uL Sodium 138 (135-145) mmol/L Potassium 5.3 H (3.5-5.1) mmol/L Chloride 102 (98-107) mmol/L Carbon Dioxide 9 L* (22-30) mmol/L Anion Gap 32.1 H (5-15) MEQ/L BUN 41 H (9-20) mg/dL Creatinine 1.77 H (0.66-1.25) mg/dL Estimated GFR 42.4 ML/MIN Glucose 665 H* (74-106) mg/dL POC Glucometer (50 to 500) mg/dL Lactic Acid (0.4-2.0) Calcium 10.2 (8.4-10.2) mg/dL Magnesium 2.1 (1.6-2.3) mg/dL Total Bilirubin 2.00 H (0.2-1.3) mg/dL AST 19 (17-59) U/L ALT 20 (0-50) U/L Alkaline Phosphatase 100 (38-126) U/L Serum Total Protein 7.3 (6.3-8.2) g/dL Albumin 4.7 (3.5-5.0) g/dL Amylase 68 (30-110) U/L Lipase 47 (23-300) U/L Urine Color Yellow (Yellow) Urine Appearance Clear (Clear) Urine pH 5.5 (4.6-8.0) Ur Specific [place] 1.025 (1.005-1.030) Urine Protein 100 A (Negative) Urine Glucose (UA) >=1000 A (Negative) mg/dL Urine Ketones 80 A (Negative) Urine Blood Negative (Negative) Urine Nitrite Negative (Negative) Urine Bilirubin Negative (Negative) Urine Urobilinogen 0.2 (0.2) mg/dL Ur Leukocyte Esterase Negative (Negative) U Hyaline Cast (Auto) 3-5 A (0-2) /LPF Urine Microscopic RBC 0-2 (0-5) /HPF Urine Microscopic WBC 0-2 (0-5) /HPF Ur Epithelial Cells None Seen (None Seen) /HPF Urine Bacteria None Seen (None Seen) /HPF Urine Culture Reflexed NO (NO) Ethyl Alcohol < 10 (0-10) mg/dL 04/01/24 04/01/24 04/01/24 Range/Units 19:44 19:31 19:26 WBC 13.5 H (4.23-9.07) x10^3/uL RBC 3.82 L (4.63-6.08) x10^6/uL Hgb 11.3 L (13.7-17.5) g/dL Hct 34.6 L (40.1-51.0) % MCV 90.6 (79.0-92.2) fL MCH 29.6 (25.7-32.2) pg MCHC 32.7 (32.3-36.5) g/dL RDW 13.5 (11.6-14.4) % Plt Count 269 (163-337) x10^3/uL MPV 11.8 (9.4-12.4) fL Gran % 87.9 H (34.0-67.9) % Immature Gran % (Auto) 0.5 H (0.001-0.429) % Nucleat RBC Rel Count 0.0 (0.00-0.2) % Eos # (Auto) 0 L (0.04-0.54) x10^3/uL Immature Gran # (Auto) 0.07 H (0.001-0.031) x10^3u/L Absolute Lymphs (auto) 1.06 L (1.32-3.57) x10^3/uL Absolute Monos (auto) 0.42 (0.30-0.82) x10^3/uL Absolute Nucleated RBC 0.00 (0.00-0.012) x10^3u/L Lymphocytes % 7.9 L (21.8-53.1) % Monocytes % 3.1 L (5.3-12.2) % Eosinophils % 0.0 L (0.8-7.0) % Basophils % 0.6 (0.2-1.2) % Absolute Granulocytes 11.87 H (1.78-5.38) x10^3/uL Basophils # 0.08 (0.01-0.08) x10^3/uL Sodium (135-145) mmol/L Potassium (3.5-5.1) mmol/L Chloride (98-107) mmol/L Carbon Dioxide (22-30) mmol/L Anion Gap (5-15) MEQ/L BUN (9-20) mg/dL Creatinine (0.66-1.25) mg/dL Estimated GFR ML/MIN Glucose (74-106) mg/dL POC Glucometer 558 H* (50 to 500) mg/dL Lactic Acid 2.0 (0.4-2.0) Calcium (8.4-10.2) mg/dL Magnesium (1.6-2.3) mg/dL Total Bilirubin (0.2-1.3) mg/dL AST (17-59) U/L ALT (0-50) U/L Alkaline Phosphatase (38-126) U/L Serum Total Protein (6.3-8.2) g/dL Albumin (3.5-5.0) g/dL Amylase (30-110) U/L Lipase (23-300) U/L Urine Color (Yellow) Urine Appearance (Clear) Urine pH (4.6-8.0) Ur Specific [place] (1.005-1.030) Urine Protein (Negative) Urine Glucose (UA) (Negative) mg/dL Urine Ketones (Negative) Urine Blood (Negative) Urine Nitrite (Negative) Urine Bilirubin (Negative) Urine Urobilinogen (0.2) mg/dL Ur Leukocyte Esterase (Negative) U Hyaline Cast (Auto) (0-2) /LPF Urine Microscopic RBC (0-5) /HPF Urine Microscopic WBC (0-5) /HPF Ur Epithelial Cells (None Seen) /HPF Urine Bacteria (None Seen) /HPF Urine Culture Reflexed (NO) Ethyl Alcohol (0-10) mg/dL - Progress Progress: improved, re-examined Progress Note: 04/01/24 21:38 My medical decision making and the assignment of high complexity to this medical issue in this patient is based on review of the patient's past medical history, review of patient's medication list, review of patient drug allergy list, history present illness and physical findings on examination. The workup includes placement of intravenous line, infusion of normal saline solution, CBC, CMP, urinalysis, lactic acid level, magnesium level, and bedside Accu-Chek/fkdem-ku-woyn glucose level. Differential diagnosis includes but is not limited to hyperglycemia, urinary tract infection, dehydration, DKA 04/01/24 21:40 I did review and interpret the patient's laboratory data results. The patient has DKA with an anion gap of 32 and a CO2 of 9. Urinalysis is still pending. Patient has leukocytosis. I did speak with Dr. Francy Barahona, the telehospitalist on-call today. I reviewed the patient history, presenting complaint, results of laboratory data. He agrees that the patient will be placed in the ICU and treated for DKA. Counseled pt/family regarding: lab results, diagnosis Medical Desision Making - Independent Historian Additional History obtained from: Spouse - External Record(s) Reviewed Records reviewed as a part of evaluation & management: Inpatient - Discussion of managment Care discussed with:: hospitalist Reviewed:: Test results, Need for additional workup Agreed on:: decision to admit Will see patient: in hospital - Diagnostic Testing Diagnostic test were ordered, analyzed, and reviewed by me: Yes - Risk of complications The pt has a high risk of morbidity or mortality based on: Decision regarding hospitilization or escalation of hosp level of care - Departure Departure Disposition: In-patient Admission Clinical Impression: DKA (diabetic ketoacidosis), History of medication noncompliance Condition: Fair Critical Care Time: Yes Critical Care Time(excluding separately billable procedures): Critical 30-74 mins (45) Referrals: RUSTY ORTIZ MD [Primary Care Provider] - Follow up/PCP as directed
[2024-04-01] MEDS ORDERED: PROTONIX 40 MG IV IV ONE (19:44)
[2024-04-01] MEDS ORDERED: Zofran 4 MG/2 ML VIAL ONE ×2 (19:44→22:28)
[2024-04-01] MEDS ORDERED: Sodium Chloride 0.9% 1000 ML 1,000 ML ONE ×2 (19:44→23:07)
[2024-04-01] MEDS: Sodium Chloride 0.9% 1000 ML 1,000 ML IV STA (19:46)
[2024-04-01] MEDS: Zofran 4 MG/2 ML VIAL IV ONE ×2 (19:46→22:29)
[2024-04-01] MEDS: PROTONIX 40 MG IV IV ONE (19:47)
[2024-04-01 19:49] LABS: Absolute Neutrophil Ct (ANC) 11.87 x10^3/uL (1.78-5.38); BASOPHIL % 0.6 % (0.2-1.2); Basophil (Absolute #) 0.08 x10^3/uL (0.01-0.08); Eosinophil (Absolute #) 0 x10^3/uL (0.04-0.54); Hematocrit 34.6 % (40.1-51.0); Hemoglobin 11.3 g/dL (13.7-17.5); IMMATURE GRAN # 0.07 x10^3u/L (0.001-0.031); IMMATURE GRAN % 0.5 % (0.001-0.429); Lymphocyte (Absolute #) 1.06 x10^3/uL (1.32-3.57); Lymphocytes % 7.9 % (21.8-53.1); Mean Cell Volume 90.6 fL (79.0-92.2); Mean Corpuscular Hemoglobin 29.6 pg (25.7-32.2); Mean Corpuscular Hgb Concent. 32.7 g/dL (32.3-36.5); Mean Platelet Volume 11.8 fL (9.4-12.4); Monocyte (Absolute #) 0.42 x10^3/uL (0.30-0.82); Monocytes % 3.1 % (5.3-12.2); Neutrophil % 87.9 % (34.0-67.9); Platelet Count 269 x10^3/uL (163-337); Red Blood Count 3.82 x10^6/uL (4.63-6.08); Red Cell Distribution Width 13.5 % (11.6-14.4); White Blood Count 13.5 x10^3/uL (4.23-9.07)
[2024-04-01 20:04] LABS: ALBUMIN 4.7 g/dL (3.5-5.0); ANION GAP 32.1 MEQ/L (5-15); Calcium 10.2 mg/dL (8.4-10.2); Creatinine 1 1.77 mg/dL (0.66-1.25); EST GLOMERULAR FILTRATION RATE 42.4 ML/MIN; Potassium 5.3 mmol/L (3.5-5.1); Total Protein 7.3 g/dL (6.3-8.2)
[2024-04-01 20:05] LABS: ETHYL ALCOHOL < 10 mg/dL (0-10); MAGNESIUM 2.1 mg/dL (1.6-2.3)
[2024-04-01] MEDS ORDERED: Lactated Ringers 1,000 ML IV ONE (20:59)
[2024-04-01] MEDS ORDERED: Compazine 10 MG/2 ML ONE (20:59)
[2024-04-01] MEDS ORDERED: HUMULIN R ONE (21:01)
[2024-04-01] MEDS: Lactated Ringers 1,000 ML IV ONE (21:02)
[2024-04-01] MEDS: Compazine 10 MG/2 ML IV ONE (21:02)
[2024-04-01] MEDS: HUMULIN R IV ONE (21:02)
[2024-04-01] MEDS ORDERED: TRANDATE 20 MG/4 ML SYRINGE IV ONE ×2 (21:11→22:28)
[2024-04-01] MEDS: TRANDATE 20 MG/4 ML SYRINGE IV ONE ×2 (21:11→22:30)
--- NOTE | 2024-04-01 21:28 | PCM.HP ---
History of Present Illness - Chief Complaint Chief Complaint: DKA History of Present Illness: is a 63 year old male with diabetes, HTN, seizure disorder and recurrent episodes of DKA who presents with nausea, vomiting and a blood sugar of 600 and AG of 32, consistent with a DKA episode. No fever, diarrhea. Pt reports taking 30 units of humalog earlier. Started on fluids and insulin gtt in the ED. - Review of Systems Constitutional: No Fever, No Chills Eyes: No Symptoms Ears, Nose, & Throat: No Symptoms Respiratory: No Cough, No Short Of Breath Cardiac: No Chest Pain, No Edema, No Syncope Abdominal/Gastrointestinal: No Abdominal Pain, No Nausea, No Vomiting, No Diarrhea Genitourinary Symptoms: No Dysuria Musculoskeletal: No Back Pain, No Neck Pain Skin: No Rash Neurological: No Dizziness, No Focal Weakness, No Sensory Changes Psychological: No Symptoms Endocrine: No Symptoms Hematologic/Lymphatic: No Symptoms Immunological/Allergic: No Symptoms Medications & Allergies Home Medications: Home Medication List Insulin Glargine [Lantus Insulin] 50 units SQ QAM 03/25/19 [History Confirmed 04/01/24] Gabapentin 600 mg PO TID 04/01/23 [History Confirmed 04/01/24] Amlodipine Besylate [Norvasc] 10 mg PO DAILY 03/07/24 [History Confirmed 04/01/24] Multivitamins,Therapeutic Tab* [Theragran Multivitamin] 1 tab PO DAILY 03/07/24 [History Confirmed 04/01/24] Carvedilol 3.125 mg [Coreg 3.125 MG] 3.125 mg PO BID 30 Days #30 tablet 03/08/24 [Rx Confirmed 04/01/24] Lactobacillus Acidophilus [Acidophilus TABLET] 1 tab PO DAILY 30 Days #30 tablet 03/08/24 [Rx Confirmed 04/01/24] Lisinopril 10 mg [Zestril 10 MG] 10 mg PO DAILY 30 Days #30 tablet 03/08/24 [Rx Confirmed 04/01/24] Insulin Lispro [Humalog Kwikpen U-100] 1 unit SQ ACHS 04/01/24 [History Confirmed 04/01/24] Allergies/Adverse Reactions: Allergies Allergy/AdvReac Type Severity Reaction Status Date / Time codeine AdvReac Severe Vomiting Verified 04/01/24 19:23 hydrocodone bitartrate AdvReac Severe Vomiting Verified 04/01/24 19:23 [From Vicodin] propoxyphene AdvReac Verified 04/01/24 19:23 [From Darvocet-N 100] - Past Medical History Past Medical History: Yes Neurological History: Seizures ENT History: No Pertinent History Cardiac History: No Pertinent History Respiratory History: No Pertinent History Endocrine Medical History: Diabetes Type II Musculoskelatal History: No Pertinent History GI Medical History: No Pertinent History History: No Pertinent History Pyscho-Social History: No Pertinent History Male Reproductive Disorders: No Pertinent History Comment: FX L LEG AND FOOT subsequent infection. diarrhea x3 weeks, was hospitalized for gi sx. gangrene, sepsis 2014 - Past Surgical History Past Surgical History: Yes Neuro Surgical History: No Pertinent History Cardiac History: No Pertinent History Respiratory Surgery: No Pertinent History GI Surgical History: Cholecystectomy, Hernia Repair Genitourinary Surgical Hx: No Pertinent History Musculskeletal Surgical Hx: Orthopedic Surgery Male Surgical History: No Pertinent History Other Surgical History: right femur fixed at age 15. left foot broke at age 20. left leg and foot surgery ,,I&D of left foot, polyps removed - Social History Smoking Status: Never smoker How long have you smoked: 1 yr Exposure to second hand smoke: No Alcohol: None Drug Use: none - Social Determinants of Health Will the patient participate in the screening: Declined to provide Do you worry about a steady place to live?: No In the past 12 months,have you had to go without utilities?: No Have you or anyone in your house had to go without enough: No Transportation Issues: No Has anyone in your support network made you feel unsafe?: No Does the patient want assistance with any of the above?: No - Physical Exam Vital Signs: Vital Signs - 24 hr Temp Pulse Resp BP BP Pulse Ox 04/01/24 21:10 177/85 04/01/24 21:01 103 H 181/81 97 04/01/24 20:50 165/69 04/01/24 20:40 181/71 97 04/01/24 20:30 110 H 211/108 97 04/01/24 20:00 168/84 100 04/01/24 19:25 113 H 198/97 97 04/01/24 19:20 98.3 F 111 H 16 198/98 98 General Appearance: no apparent distress, alert Neurologic Exam: alert, oriented x 3, cooperative, normal mood/affect, nml cerebellar function, nml station & gait, sensation nml, No motor deficits Eye Exam: PERRL/EOMI, eyes nml inspection Ears, Nose, Throat Exam: normal ENT inspection, TMs normal, pharynx normal, moist mucous membranes Neck Exam: normal inspection, non-tender, supple, full range of motion Respiratory Exam: normal breath sounds, lungs clear, No respiratory distress Cardiovascular Exam: regular rate/rhythm, normal heart sounds, normal peripheral pulses Gastrointestinal/Abdomen Exam: soft, normal bowel sounds, No tenderness, No mass Back Exam: normal inspection, normal range of motion, No CVA tenderness, No vertebral tenderness Extremity Exam: normal inspection, normal range of motion, pelvis stable Skin Exam: normal color, warm, dry, No rash Lymphatic Exam: No adenopathy Results - Labs Lab/Micro Results: Lab Results-Last 24 Hours 04/01/24 04/01/24 04/01/24 Range/Units 19:26 19:31 19:44 WBC 13.5 H (4.23-9.07) x10^3/uL RBC 3.82 L (4.63-6.08) x10^6/uL Hgb 11.3 L (13.7-17.5) g/dL Hct 34.6 L (40.1-51.0) % MCV 90.6 (79.0-92.2) fL MCH 29.6 (25.7-32.2) pg MCHC 32.7 (32.3-36.5) g/dL RDW 13.5 (11.6-14.4) % Plt Count 269 (163-337) x10^3/uL MPV 11.8 (9.4-12.4) fL Gran % 87.9 H (34.0-67.9) % Immature Gran % (Auto) 0.5 H (0.001-0.429) % Nucleat RBC Rel Count 0.0 (0.00-0.2) % Eos # (Auto) 0 L (0.04-0.54) x10^3/uL Immature Gran # (Auto) 0.07 H (0.001-0.031) x10^3u/L Absolute Lymphs (auto) 1.06 L (1.32-3.57) x10^3/uL Absolute Monos (auto) 0.42 (0.30-0.82) x10^3/uL Absolute Nucleated RBC 0.00 (0.00-0.012) x10^3u/L Lymphocytes % 7.9 L (21.8-53.1) % Monocytes % 3.1 L (5.3-12.2) % Eosinophils % 0.0 L (0.8-7.0) % Basophils % 0.6 (0.2-1.2) % Absolute Granulocytes 11.87 H (1.78-5.38) x10^3/uL Basophils # 0.08 (0.01-0.08) x10^3/uL Sodium (135-145) mmol/L Potassium (3.5-5.1) mmol/L Chloride (98-107) mmol/L Carbon Dioxide (22-30) mmol/L Anion Gap (5-15) MEQ/L BUN (9-20) mg/dL Creatinine (0.66-1.25) mg/dL Estimated GFR ML/MIN Glucose (74-106) mg/dL POC Glucometer 558 H* (50 to 500) mg/dL Lactic Acid 2.0 (0.4-2.0) Calcium (8.4-10.2) mg/dL Magnesium (1.6-2.3) mg/dL Total Bilirubin (0.2-1.3) mg/dL AST (17-59) U/L ALT (0-50) U/L Alkaline Phosphatase (38-126) U/L Serum Total Protein (6.3-8.2) g/dL Albumin (3.5-5.0) g/dL Amylase (30-110) U/L Lipase (23-300) U/L Ethyl Alcohol (0-10) mg/dL 04/01/24 04/01/24 Range/Units 19:44 19:50 WBC (4.23-9.07) x10^3/uL RBC (4.63-6.08) x10^6/uL Hgb (13.7-17.5) g/dL Hct (40.1-51.0) % MCV (79.0-92.2) fL MCH (25.7-32.2) pg MCHC (32.3-36.5) g/dL RDW (11.6-14.4) % Plt Count (163-337) x10^3/uL MPV (9.4-12.4) fL Gran % (34.0-67.9) % Immature Gran % (Auto) (0.001-0.429) % Nucleat RBC Rel Count (0.00-0.2) % Eos # (Auto) (0.04-0.54) x10^3/uL Immature Gran # (Auto) (0.001-0.031) x10^3u/L Absolute Lymphs (auto) (1.32-3.57) x10^3/uL Absolute Monos (auto) (0.30-0.82) x10^3/uL Absolute Nucleated RBC (0.00-0.012) x10^3u/L Lymphocytes % (21.8-53.1) % Monocytes % (5.3-12.2) % Eosinophils % (0.8-7.0) % Basophils % (0.2-1.2) % Absolute Granulocytes (1.78-5.38) x10^3/uL Basophils # (0.01-0.08) x10^3/uL Sodium 138 (135-145) mmol/L Potassium 5.3 H (3.5-5.1) mmol/L Chloride 102 (98-107) mmol/L Carbon Dioxide 9 L* (22-30) mmol/L Anion Gap 32.1 H (5-15) MEQ/L BUN 41 H (9-20) mg/dL Creatinine 1.77 H (0.66-1.25) mg/dL Estimated GFR 42.4 ML/MIN Glucose 665 H* (74-106) mg/dL POC Glucometer (50 to 500) mg/dL Lactic Acid (0.4-2.0) Calcium 10.2 (8.4-10.2) mg/dL Magnesium 2.1 (1.6-2.3) mg/dL Total Bilirubin 2.00 H (0.2-1.3) mg/dL AST 19 (17-59) U/L ALT 20 (0-50) U/L Alkaline Phosphatase 100 (38-126) U/L Serum Total Protein 7.3 (6.3-8.2) g/dL Albumin 4.7 (3.5-5.0) g/dL Amylase 68 (30-110) U/L Lipase 47 (23-300) U/L Ethyl Alcohol < 10 (0-10) mg/dL Assessment/Plan (1) DKA (diabetic ketoacidoses) Current Visit: No Status: Acute Qualifiers: Assessment & Plan: 1. Insulin gtt with fluids 2. Chemistry Labs Q4 Code(s): E11.10 - TYPE 2 DIABETES MELLITUS WITH KETOACIDOSIS WITHOUT COMA Telemedicine Encounter - Telemedicine Encounter Telemedicine Encounter: The entirety of this encounter was performed via Telemedicine"
[2024-04-01 21:48] LABS: Appearance Clear (Clear); Bacteria None Seen /HPF (None Seen); Bilirubin Negative (Negative); Blood Negative (Negative); Epithelial Cells None Seen /HPF (None Seen); Glucose, Urine >=1000 mg/dL (Negative); Ketones 80 (Negative); Leukocyte Esterase Negative (Negative); Nitrite Negative (Negative); Ph 5.5 (4.6-8.0); Protein,Urine Dip 100 (Negative); RBC 0-2 /HPF (0-5); Specific Gravity 1.025 (1.005-1.030); Urobilinogen 0.2 mg/dL (0.2); WBC 0-2 /HPF (0-5)
[2024-04-01 21:50] LABS: ADD URINE CULTURE? NO (NO)
[2024-04-01] MEDS: MYXREDLIN 100 UNIT/100 ML BAG 100 UNIT/100 ML PLAST..BAG IV PRN (22:06)
[2024-04-01] MEDS: Sodium Chloride 0.9% 1000 ML 1,000 ML IV SCH (23:11)
[2024-04-01] MEDS ORDERED: Zofran 4 MG/2 ML VIAL IV PRN (23:56)
[2024-04-01] MEDS ORDERED: TYLENOL 325 MG PO PRN (23:56)
[2024-04-02 01:19] LABS: ANION GAP 25.6 MEQ/L (5-15); Creatinine 1 1.65 mg/dL (0.66-1.25); EST GLOMERULAR FILTRATION RATE 46.1 ML/MIN; Potassium 4.7 mmol/L (3.5-5.1)
[2024-04-02] MEDS: PROTONIX 40 MG IV IV SCH (01:26)
[2024-04-02] MEDS: D5W/0.45NS W/ 20mEq KCl 1000 ML 1,000 ML IV SCH (04:02)
[2024-04-02 04:36] LABS: Absolute Neutrophil Ct (ANC) 10.87 x10^3/uL (1.78-5.38); BASOPHIL % 0.4 % (0.2-1.2); Basophil (Absolute #) 0.05 x10^3/uL (0.01-0.08); Eosinophil (Absolute #) 0 x10^3/uL (0.04-0.54); Hematocrit 29.2 % (40.1-51.0); IMMATURE GRAN # 0.03 x10^3u/L (0.001-0.031); IMMATURE GRAN % 0.2 % (0.001-0.429); Lymphocyte (Absolute #) 1.59 x10^3/uL (1.32-3.57); Lymphocytes % 11.8 % (21.8-53.1); Mean Cell Volume 86.9 fL (79.0-92.2); Mean Corpuscular Hemoglobin 29.8 pg (25.7-32.2); Mean Corpuscular Hgb Concent. 34.2 g/dL (32.3-36.5); Monocyte (Absolute #) 0.91 x10^3/uL (0.30-0.82); Monocytes % 6.8 % (5.3-12.2); Neutrophil % 80.8 % (34.0-67.9); Platelet Count 262 x10^3/uL (163-337); Red Blood Count 3.36 x10^6/uL (4.63-6.08); Red Cell Distribution Width 13.7 % (11.6-14.4); White Blood Count 13.5 x10^3/uL (4.23-9.07)
[2024-04-02 04:41] VITALS: TEMP 98.2
[2024-04-02 04:50] LABS: ALBUMIN 4.1 g/dL (3.5-5.0); ANION GAP 16.7 MEQ/L (5-15); BILIRUBIN,TOTAL 1.2 mg/dL (0.2-1.3); Creatinine 1 1.5 mg/dL (0.66-1.25); EST GLOMERULAR FILTRATION RATE 51.7 ML/MIN; Potassium 4.3 mmol/L (3.5-5.1); Total Protein 6.8 g/dL (6.3-8.2)
[2024-04-02 08:38] VITALS: O2SAT 99
[2024-04-02 09:18] LABS: ANION GAP 14.5 MEQ/L (5-15); Calcium 9.8 mg/dL (8.4-10.2); Creatinine 1 1.38 mg/dL (0.66-1.25); EST GLOMERULAR FILTRATION RATE 57.1 ML/MIN
[2024-04-02] MEDS: HUMALOG SQ PRN (11:32)
[2024-04-02 11:44] VITALS: BP 175/89; PULSE 85; RESP 18
--- NOTE | 2024-04-02 12:03 | PCM.DS ---
Discharge Summary Date of Admission: 04/01/24 23:42 Date of Discharge: 04/02/24 Admitting Physician: LOUIE CEJA MD Primary Care Provider: DIANA,RUSTY Allergies Allergies codeine Adverse Reaction (Severe, Verified 04/01/24 19:23) Vomiting hydrocodone bitartrate [From Vicodin] Adverse Reaction (Severe, Verified 19:23) Vomiting propoxyphene [From Darvocet-N 100] Adverse Reaction (Verified 04/01/24 19:23) Hospital Summary - Hospital Course Hospital Course: is a 63 year old male with diabetes, HTN, seizure disorder and rec urrent episodes of DKA admitted with DKA. Patient received insulin drip overnight with much improvement. Patient was adamant about discharge today. He was still on insulin drip and was advised to stay overnight but refused and let AMA. Risks of leaving AMA discussed with patient including . Patient signed AMA forms and left the facility with spouse. (1) DKA (diabetic ketoacidoses) Current Visit: No Status: Acute Qualifiers: Assessment & Plan: 1. Insulin gtt with fluids 2. Chemistry Labs Q4 - Vitals & Intake/Output Vital Signs: Vital Signs Temperature 98.2 F 04/02/24 04:00 Pulse Rate 85 04/02/24 11:30 Respiratory Rate 18 04/02/24 11:30 Blood Pressure 175/89 04/02/24 10:01 O2 Sat by Pulse Oximetry 99 04/02/24 11:10 Intake & Output: Intake & Output 03/30/24 03/31/24 04/01/24 04/02/24 11:59 11:59 11:59 11:59 Intake Total 344 Output Total 1175 Balance -831 Weight 75.2 kg - Lab Result Diagrams: 04/02/24 04:34 04/02/24 09:00 Lab Results-Last 24 Hrs: Lab Results-Last 24 Hours 04/01/24 04/01/24 04/01/24 Range/Units 19:26 19:31 19:44 WBC 13.5 H (4.23-9.07) x10^3/uL RBC 3.82 L (4.63-6.08) x10^6/uL Hgb 11.3 L (13.7-17.5) g/dL Hct 34.6 L (40.1-51.0) % MCV 90.6 (79.0-92.2) fL MCH 29.6 (25.7-32.2) pg MCHC 32.7 (32.3-36.5) g/dL RDW 13.5 (11.6-14.4) % Plt Count 269 (163-337) x10^3/uL MPV 11.8 (9.4-12.4) fL Gran % 87.9 H (34.0-67.9) % Immature Gran % (Auto) 0.5 H (0.001-0.429) % Nucleat RBC Rel Count 0.0 (0.00-0.2) % Eos # (Auto) 0 L (0.04-0.54) x10^3/uL Immature Gran # (Auto) 0.07 H (0.001-0.031) x10^3u/L Absolute Lymphs (auto) 1.06 L (1.32-3.57) x10^3/uL Absolute Monos (auto) 0.42 (0.30-0.82) x10^3/uL Absolute Nucleated RBC 0.00 (0.00-0.012) x10^3u/L Lymphocytes % 7.9 L (21.8-53.1) % Monocytes % 3.1 L (5.3-12.2) % Eosinophils % 0.0 L (0.8-7.0) % Basophils % 0.6 (0.2-1.2) % Absolute Granulocytes 11.87 H (1.78-5.38) x10^3/uL Basophils # 0.08 (0.01-0.08) x10^3/uL Sodium (135-145) mmol/L Potassium (3.5-5.1) mmol/L Chloride (98-107) mmol/L Carbon Dioxide (22-30) mmol/L Anion Gap (5-15) MEQ/L BUN (9-20) mg/dL Creatinine (0.66-1.25) mg/dL Estimated GFR ML/MIN Glucose (74-106) mg/dL POC Glucometer 558 H* (50 to 500) mg/dL Lactic Acid 2.0 (0.4-2.0) Calcium (8.4-10.2) mg/dL Phosphorus (2.5-4.5) mg/dL Magnesium (1.6-2.3) mg/dL Total Bilirubin (0.2-1.3) mg/dL AST (17-59) U/L ALT (0-50) U/L Alkaline Phosphatase (38-126) U/L Serum Total Protein (6.3-8.2) g/dL Albumin (3.5-5.0) g/dL Amylase (30-110) U/L Lipase (23-300) U/L Urine Color (Yellow) Urine Appearance (Clear) Urine pH (4.6-8.0) Ur Specific [place] (1.005-1.030) Urine Protein (Negative) Urine Glucose (UA) (Negative) mg/dL Urine Ketones (Negative) Urine Blood (Negative) Urine Nitrite (Negative) Urine Bilirubin (Negative) Urine Urobilinogen (0.2) mg/dL Ur Leukocyte Esterase (Negative) U Hyaline Cast (Auto) (0-2) /LPF Urine Microscopic RBC (0-5) /HPF Urine Microscopic WBC (0-5) /HPF Ur Epithelial Cells (None Seen) /HPF Urine Bacteria (None Seen) /HPF Urine Culture Reflexed (NO) Ethyl Alcohol (0-10) mg/dL 04/01/24 04/01/24 04/01/24 Range/Units 19:44 19:50 20:15 WBC (4.23-9.07) x10^3/uL RBC (4.63-6.08) x10^6/uL Hgb (13.7-17.5) g/dL Hct (40.1-51.0) % MCV (79.0-92.2) fL MCH (25.7-32.2) pg MCHC (32.3-36.5) g/dL RDW (11.6-14.4) % Plt Count (163-337) x10^3/uL MPV (9.4-12.4) fL Gran % (34.0-67.9) % Immature Gran % (Auto) (0.001-0.429) % Nucleat RBC Rel Count (0.00-0.2) % Eos # (Auto) (0.04-0.54) x10^3/uL Immature Gran # (Auto) (0.001-0.031) x10^3u/L Absolute Lymphs (auto) (1.32-3.57) x10^3/uL Absolute Monos (auto) (0.30-0.82) x10^3/uL Absolute Nucleated RBC (0.00-0.012) x10^3u/L Lymphocytes % (21.8-53.1) % Monocytes % (5.3-12.2) % Eosinophils % (0.8-7.0) % Basophils % (0.2-1.2) % Absolute Granulocytes (1.78-5.38) x10^3/uL Basophils # (0.01-0.08) x10^3/uL Sodium 138 (135-145) mmol/L Potassium 5.3 H (3.5-5.1) mmol/L Chloride 102 (98-107) mmol/L Carbon Dioxide 9 L* (22-30) mmol/L Anion Gap 32.1 H (5-15) MEQ/L BUN 41 H (9-20) mg/dL Creatinine 1.77 H (0.66-1.25) mg/dL Estimated GFR 42.4 ML/MIN Glucose 665 H* (74-106) mg/dL POC Glucometer (50 to 500) mg/dL Lactic Acid (0.4-2.0) Calcium 10.2 (8.4-10.2) mg/dL Phosphorus (2.5-4.5) mg/dL Magnesium 2.1 (1.6-2.3) mg/dL Total Bilirubin 2.00 H (0.2-1.3) mg/dL AST 19 (17-59) U/L ALT 20 (0-50) U/L Alkaline Phosphatase 100 (38-126) U/L Serum Total Protein 7.3 (6.3-8.2) g/dL Albumin 4.7 (3.5-5.0) g/dL Amylase 68 (30-110) U/L Lipase 47 (23-300) U/L Urine Color Yellow (Yellow) Urine Appearance Clear (Clear) Urine pH 5.5 (4.6-8.0) Ur Specific [place] 1.025 (1.005-1.030) Urine Protein 100 A (Negative) Urine Glucose (UA) >=1000 A (Negative) mg/dL Urine Ketones 80 A (Negative) Urine Blood Negative (Negative) Urine Nitrite Negative (Negative) Urine Bilirubin Negative (Negative) Urine Urobilinogen 0.2 (0.2) mg/dL Ur Leukocyte Esterase Negative (Negative) U Hyaline Cast (Auto) 3-5 A (0-2) /LPF Urine Microscopic RBC 0-2 (0-5) /HPF Urine Microscopic WBC 0-2 (0-5) /HPF Ur Epithelial Cells None Seen (None Seen) /HPF Urine Bacteria None Seen (None Seen) /HPF Urine Culture Reflexed NO (NO) Ethyl Alcohol < 10 (0-10) mg/dL 04/01/24 04/01/24 04/01/24 Range/Units 21:50 21:52 22:36 WBC (4.23-9.07) x10^3/uL RBC (4.63-6.08) x10^6/uL Hgb (13.7-17.5) g/dL Hct (40.1-51.0) % MCV (79.0-92.2) fL MCH (25.7-32.2) pg MCHC (32.3-36.5) g/dL RDW (11.6-14.4) % Plt Count (163-337) x10^3/uL MPV (9.4-12.4) fL Gran % (34.0-67.9) % Immature Gran % (Auto) (0.001-0.429) % Nucleat RBC Rel Count (0.00-0.2) % Eos # (Auto) (0.04-0.54) x10^3/uL Immature Gran # (Auto) (0.001-0.031) x10^3u/L Absolute Lymphs (auto) (1.32-3.57) x10^3/uL Absolute Monos (auto) (0.30-0.82) x10^3/uL Absolute Nucleated RBC (0.00-0.012) x10^3u/L Lymphocytes % (21.8-53.1) % Monocytes % (5.3-12.2) % Eosinophils % (0.8-7.0) % Basophils % (0.2-1.2) % Absolute Granulocytes (1.78-5.38) x10^3/uL Basophils # (0.01-0.08) x10^3/uL Sodium (135-145) mmol/L Potassium (3.5-5.1) mmol/L Chloride (98-107) mmol/L Carbon Dioxide (22-30) mmol/L Anion Gap (5-15) MEQ/L BUN (9-20) mg/dL Creatinine (0.66-1.25) mg/dL Estimated GFR ML/MIN Glucose (74-106) mg/dL POC Glucometer 520 H* 467 H (50 to 500) mg/dL Lactic Acid 1.5 (0.4-2.0) Calcium (8.4-10.2) mg/dL Phosphorus (2.5-4.5) mg/dL Magnesium (1.6-2.3) mg/dL Total Bilirubin (0.2-1.3) mg/dL AST (17-59) U/L ALT (0-50) U/L Alkaline Phosphatase (38-126) U/L Serum Total Protein (6.3-8.2) g/dL Albumin (3.5-5.0) g/dL Amylase (30-110) U/L Lipase (23-300) U/L Urine Color (Yellow) Urine Appearance (Clear) Urine pH (4.6-8.0) Ur Specific [place] (1.005-1.030) Urine Protein (Negative) Urine Glucose (UA) (Negative) mg/dL Urine Ketones (Negative) Urine Blood (Negative) Urine Nitrite (Negative) Urine Bilirubin (Negative) Urine Urobilinogen (0.2) mg/dL Ur Leukocyte Esterase (Negative) U Hyaline Cast (Auto) (0-2) /LPF Urine Microscopic RBC (0-5) /HPF Urine Microscopic WBC (0-5) /HPF Ur Epithelial Cells (None Seen) /HPF Urine Bacteria (None Seen) /HPF Urine Culture Reflexed (NO) Ethyl Alcohol (0-10) mg/dL 04/01/24 04/02/24 04/02/24 Range/Units 23:07 00:06 01:02 WBC (4.23-9.07) x10^3/uL RBC (4.63-6.08) x10^6/uL Hgb (13.7-17.5) g/dL Hct (40.1-51.0) % MCV (79.0-92.2) fL MCH (25.7-32.2) pg MCHC (32.3-36.5) g/dL RDW (11.6-14.4) % Plt Count (163-337) x10^3/uL MPV (9.4-12.4) fL Gran % (34.0-67.9) % Immature Gran % (Auto) (0.001-0.429) % Nucleat RBC Rel Count (0.00-0.2) % Eos # (Auto) (0.04-0.54) x10^3/uL Immature Gran # (Auto) (0.001-0.031) x10^3u/L Absolute Lymphs (auto) (1.32-3.57) x10^3/uL Absolute Monos (auto) (0.30-0.82) x10^3/uL Absolute Nucleated RBC (0.00-0.012) x10^3u/L Lymphocytes % (21.8-53.1) % Monocytes % (5.3-12.2) % Eosinophils % (0.8-7.0) % Basophils % (0.2-1.2) % Absolute Granulocytes (1.78-5.38) x10^3/uL Basophils # (0.01-0.08) x10^3/uL Sodium (135-145) mmol/L Potassium (3.5-5.1) mmol/L Chloride (98-107) mmol/L Carbon Dioxide (22-30) mmol/L Anion Gap (5-15) MEQ/L BUN (9-20) mg/dL Creatinine (0.66-1.25) mg/dL Estimated GFR ML/MIN Glucose (74-106) mg/dL POC Glucometer 443 H 365 H 329 H (50 to 500) mg/dL Lactic Acid (0.4-2.0) Calcium (8.4-10.2) mg/dL Phosphorus (2.5-4.5) mg/dL Magnesium (1.6-2.3) mg/dL Total Bilirubin (0.2-1.3) mg/dL AST (17-59) U/L ALT (0-50) U/L Alkaline Phosphatase (38-126) U/L Serum Total Protein (6.3-8.2) g/dL Albumin (3.5-5.0) g/dL Amylase (30-110) U/L Lipase (23-300) U/L Urine Color (Yellow) Urine Appearance (Clear) Urine pH (4.6-8.0) Ur Specific [place] (1.005-1.030) Urine Protein (Negative) Urine Glucose (UA) (Negative) mg/dL Urine Ketones (Negative) Urine Blood (Negative) Urine Nitrite (Negative) Urine Bilirubin (Negative) Urine Urobilinogen (0.2) mg/dL Ur Leukocyte Esterase (Negative) U Hyaline Cast (Auto) (0-2) /LPF Urine Microscopic RBC (0-5) /HPF Urine Microscopic WBC (0-5) /HPF Ur Epithelial Cells (None Seen) /HPF Urine Bacteria (None Seen) /HPF Urine Culture Reflexed (NO) Ethyl Alcohol (0-10) mg/dL 04/02/24 04/02/24 04/02/24 Range/Units 01:11 01:11 02:01 WBC (4.23-9.07) x10^3/uL RBC (4.63-6.08) x10^6/uL Hgb (13.7-17.5) g/dL Hct (40.1-51.0) % MCV (79.0-92.2) fL MCH (25.7-32.2) pg MCHC (32.3-36.5) g/dL RDW (11.6-14.4) % Plt Count (163-337) x10^3/uL MPV (9.4-12.4) fL Gran % (34.0-67.9) % Immature Gran % (Auto) (0.001-0.429) % Nucleat RBC Rel Count (0.00-0.2) % Eos # (Auto) (0.04-0.54) x10^3/uL Immature Gran # (Auto) (0.001-0.031) x10^3u/L Absolute Lymphs (auto) (1.32-3.57) x10^3/uL Absolute Monos (auto) (0.30-0.82) x10^3/uL Absolute Nucleated RBC (0.00-0.012) x10^3u/L Lymphocytes % (21.8-53.1) % Monocytes % (5.3-12.2) % Eosinophils % (0.8-7.0) % Basophils % (0.2-1.2) % Absolute Granulocytes (1.78-5.38) x10^3/uL Basophils # (0.01-0.08) x10^3/uL Sodium 144 (135-145) mmol/L Potassium 4.7 (3.5-5.1) mmol/L Chloride 110 H (98-107) mmol/L Carbon Dioxide 13 L* (22-30) mmol/L Anion Gap 25.6 H (5-15) MEQ/L BUN 41 H (9-20) mg/dL Creatinine 1.65 H (0.66-1.25) mg/dL Estimated GFR 46.1 ML/MIN Glucose 371 H (74-106) mg/dL POC Glucometer 291 H (50 to 500) mg/dL Lactic Acid (0.4-2.0) Calcium 10.0 (8.4-10.2) mg/dL Phosphorus 4.8 H (2.5-4.5) mg/dL Magnesium (1.6-2.3) mg/dL Total Bilirubin (0.2-1.3) mg/dL AST (17-59) U/L ALT (0-50) U/L Alkaline Phosphatase (38-126) U/L Serum Total Protein (6.3-8.2) g/dL Albumin (3.5-5.0) g/dL Amylase (30-110) U/L Lipase (23-300) U/L Urine Color (Yellow) Urine Appearance (Clear) Urine pH (4.6-8.0) Ur Specific [place] (1.005-1.030) Urine Protein (Negative) Urine Glucose (UA) (Negative) mg/dL Urine Ketones (Negative) Urine Blood (Negative) Urine Nitrite (Negative) Urine Bilirubin (Negative) Urine Urobilinogen (0.2) mg/dL Ur Leukocyte Esterase (Negative) U Hyaline Cast (Auto) (0-2) /LPF Urine Microscopic RBC (0-5) /HPF Urine Microscopic WBC (0-5) /HPF Ur Epithelial Cells (None Seen) /HPF Urine Bacteria (None Seen) /HPF Urine Culture Reflexed (NO) Ethyl Alcohol (0-10) mg/dL 04/02/24 04/02/24 04/02/24 Range/Units 03:02 03:58 04:34 WBC (4.23-9.07) x10^3/uL RBC (4.63-6.08) x10^6/uL Hgb (13.7-17.5) g/dL Hct (40.1-51.0) % MCV (79.0-92.2) fL MCH (25.7-32.2) pg MCHC (32.3-36.5) g/dL RDW (11.6-14.4) % Plt Count (163-337) x10^3/uL MPV (9.4-12.4) fL Gran % (34.0-67.9) % Immature Gran % (Auto) (0.001-0.429) % Nucleat RBC Rel Count (0.00-0.2) % Eos # (Auto) (0.04-0.54) x10^3/uL Immature Gran # (Auto) (0.001-0.031) x10^3u/L Absolute Lymphs (auto) (1.32-3.57) x10^3/uL Absolute Monos (auto) (0.30-0.82) x10^3/uL Absolute Nucleated RBC (0.00-0.012) x10^3u/L Lymphocytes % (21.8-53.1) % Monocytes % (5.3-12.2) % Eosinophils % (0.8-7.0) % Basophils % (0.2-1.2) % Absolute Granulocytes (1.78-5.38) x10^3/uL Basophils # (0.01-0.08) x10^3/uL Sodium 145 (135-145) mmol/L Potassium 4.3 (3.5-5.1) mmol/L Chloride 113 H (98-107) mmol/L Carbon Dioxide 20 L (22-30) mmol/L Anion Gap 16.7 H (5-15) MEQ/L BUN 38 H (9-20) mg/dL Creatinine 1.50 H (0.66-1.25) mg/dL Estimated GFR 51.7 ML/MIN Glucose 205 H (74-106) mg/dL POC Glucometer 279 H 209 H (50 to 500) mg/dL Lactic Acid (0.4-2.0) Calcium 10.0 (8.4-10.2) mg/dL Phosphorus (2.5-4.5) mg/dL Magnesium (1.6-2.3) mg/dL Total Bilirubin 1.20 (0.2-1.3) mg/dL AST 18 (17-59) U/L ALT 19 (0-50) U/L Alkaline Phosphatase 74 (38-126) U/L Serum Total Protein 6.8 (6.3-8.2) g/dL Albumin 4.1 (3.5-5.0) g/dL Amylase (30-110) U/L Lipase (23-300) U/L Urine Color (Yellow) Urine Appearance (Clear) Urine pH (4.6-8.0) Ur Specific [place] (1.005-1.030) Urine Protein (Negative) Urine Glucose (UA) (Negative) mg/dL Urine Ketones (Negative) Urine Blood (Negative) Urine Nitrite (Negative) Urine Bilirubin (Negative) Urine Urobilinogen (0.2) mg/dL Ur Leukocyte Esterase (Negative) U Hyaline Cast (Auto) (0-2) /LPF Urine Microscopic RBC (0-5) /HPF Urine Microscopic WBC (0-5) /HPF Ur Epithelial Cells (None Seen) /HPF Urine Bacteria (None Seen) /HPF Urine Culture Reflexed (NO) Ethyl Alcohol (0-10) mg/dL 04/02/24 04/02/24 04/02/24 Range/Units 04:34 05:05 06:02 WBC 13.5 H (4.23-9.07) x10^3/uL RBC 3.36 L (4.63-6.08) x10^6/uL Hgb 10.0 L (13.7-17.5) g/dL Hct 29.2 L (40.1-51.0) % MCV 86.9 (79.0-92.2) fL MCH 29.8 (25.7-32.2) pg MCHC 34.2 (32.3-36.5) g/dL RDW 13.7 (11.6-14.4) % Plt Count 262 (163-337) x10^3/uL MPV 11.0 (9.4-12.4) fL Gran % 80.8 H (34.0-67.9) % Immature Gran % (Auto) 0.2 (0.001-0.429) % Nucleat RBC Rel Count 0.0 (0.00-0.2) % Eos # (Auto) 0 L (0.04-0.54) x10^3/uL Immature Gran # (Auto) 0.03 (0.001-0.031) x10^3u/L Absolute Lymphs (auto) 1.59 (1.32-3.57) x10^3/uL Absolute Monos (auto) 0.91 H (0.30-0.82) x10^3/uL Absolute Nucleated RBC 0.00 (0.00-0.012) x10^3u/L Lymphocytes % 11.8 L (21.8-53.1) % Monocytes % 6.8 (5.3-12.2) % Eosinophils % 0.0 L (0.8-7.0) % Basophils % 0.4 (0.2-1.2) % Absolute Granulocytes 10.87 H (1.78-5.38) x10^3/uL Basophils # 0.05 (0.01-0.08) x10^3/uL Sodium (135-145) mmol/L Potassium (3.5-5.1) mmol/L Chloride (98-107) mmol/L Carbon Dioxide (22-30) mmol/L Anion Gap (5-15) MEQ/L BUN (9-20) mg/dL Creatinine (0.66-1.25) mg/dL Estimated GFR ML/MIN Glucose (74-106) mg/dL POC Glucometer 169 H 157 H (50 to 500) mg/dL Lactic Acid (0.4-2.0) Calcium (8.4-10.2) mg/dL Phosphorus (2.5-4.5) mg/dL Magnesium (1.6-2.3) mg/dL Total Bilirubin (0.2-1.3) mg/dL AST (17-59) U/L ALT (0-50) U/L Alkaline Phosphatase (38-126) U/L Serum Total Protein (6.3-8.2) g/dL Albumin (3.5-5.0) g/dL Amylase (30-110) U/L Lipase (23-300) U/L Urine Color (Yellow) Urine Appearance (Clear) Urine pH (4.6-8.0) Ur Specific [place] (1.005-1.030) Urine Protein (Negative) Urine Glucose (UA) (Negative) mg/dL Urine Ketones (Negative) Urine Blood (Negative) Urine Nitrite (Negative) Urine Bilirubin (Negative) Urine Urobilinogen (0.2) mg/dL Ur Leukocyte Esterase (Negative) U Hyaline Cast (Auto) (0-2) /LPF Urine Microscopic RBC (0-5) /HPF Urine Microscopic WBC (0-5) /HPF Ur Epithelial Cells (None Seen) /HPF Urine Bacteria (None Seen) /HPF Urine Culture Reflexed (NO) Ethyl Alcohol (0-10) mg/dL 04/02/24 04/02/24 04/02/24 Range/Units 07:03 08:04 09:00 WBC (4.23-9.07) x10^3/uL RBC (4.63-6.08) x10^6/uL Hgb (13.7-17.5) g/dL Hct (40.1-51.0) % MCV (79.0-92.2) fL MCH (25.7-32.2) pg MCHC (32.3-36.5) g/dL RDW (11.6-14.4) % Plt Count (163-337) x10^3/uL MPV (9.4-12.4) fL Gran % (34.0-67.9) % Immature Gran % (Auto) (0.001-0.429) % Nucleat RBC Rel Count (0.00-0.2) % Eos # (Auto) (0.04-0.54) x10^3/uL Immature Gran # (Auto) (0.001-0.031) x10^3u/L Absolute Lymphs (auto) (1.32-3.57) x10^3/uL Absolute Monos (auto) (0.30-0.82) x10^3/uL Absolute Nucleated RBC (0.00-0.012) x10^3u/L Lymphocytes % (21.8-53.1) % Monocytes % (5.3-12.2) % Eosinophils % (0.8-7.0) % Basophils % (0.2-1.2) % Absolute Granulocytes (1.78-5.38) x10^3/uL Basophils # (0.01-0.08) x10^3/uL Sodium 147 H (135-145) mmol/L Potassium 4.0 (3.5-5.1) mmol/L Chloride 113 H (98-107) mmol/L Carbon Dioxide 23 (22-30) mmol/L Anion Gap 14.5 (5-15) MEQ/L BUN 35 H (9-20) mg/dL Creatinine 1.38 H (0.66-1.25) mg/dL Estimated GFR 57.1 ML/MIN Glucose 123 H (74-106) mg/dL POC Glucometer 136 H 120 H (50 to 500) mg/dL Lactic Acid (0.4-2.0) Calcium 9.8 (8.4-10.2) mg/dL Phosphorus (2.5-4.5) mg/dL Magnesium (1.6-2.3) mg/dL Total Bilirubin (0.2-1.3) mg/dL AST (17-59) U/L ALT (0-50) U/L Alkaline Phosphatase (38-126) U/L Serum Total Protein (6.3-8.2) g/dL Albumin (3.5-5.0) g/dL Amylase (30-110) U/L Lipase (23-300) U/L Urine Color (Yellow) Urine Appearance (Clear) Urine pH (4.6-8.0) Ur Specific [place] (1.005-1.030) Urine Protein (Negative) Urine Glucose (UA) (Negative) mg/dL Urine Ketones (Negative) Urine Blood (Negative) Urine Nitrite (Negative) Urine Bilirubin (Negative) Urine Urobilinogen (0.2) mg/dL Ur Leukocyte Esterase (Negative) U Hyaline Cast (Auto) (0-2) /LPF Urine Microscopic RBC (0-5) /HPF Urine Microscopic WBC (0-5) /HPF Ur Epithelial Cells (None Seen) /HPF Urine Bacteria (None Seen) /HPF Urine Culture Reflexed (NO) Ethyl Alcohol (0-10) mg/dL 04/02/24 04/02/24 04/02/24 Range/Units 09:00 09:09 10:23 WBC (4.23-9.07) x10^3/uL RBC (4.63-6.08) x10^6/uL Hgb (13.7-17.5) g/dL Hct (40.1-51.0) % MCV (79.0-92.2) fL MCH (25.7-32.2) pg MCHC (32.3-36.5) g/dL RDW (11.6-14.4) % Plt Count (163-337) x10^3/uL MPV (9.4-12.4) fL Gran % (34.0-67.9) % Immature Gran % (Auto) (0.001-0.429) % Nucleat RBC Rel Count (0.00-0.2) % Eos # (Auto) (0.04-0.54) x10^3/uL Immature Gran # (Auto) (0.001-0.031) x10^3u/L Absolute Lymphs (auto) (1.32-3.57) x10^3/uL Absolute Monos (auto) (0.30-0.82) x10^3/uL Absolute Nucleated RBC (0.00-0.012) x10^3u/L Lymphocytes % (21.8-53.1) % Monocytes % (5.3-12.2) % Eosinophils % (0.8-7.0) % Basophils % (0.2-1.2) % Absolute Granulocytes (1.78-5.38) x10^3/uL Basophils # (0.01-0.08) x10^3/uL Sodium (135-145) mmol/L Potassium (3.5-5.1) mmol/L Chloride (98-107) mmol/L Carbon Dioxide (22-30) mmol/L Anion Gap (5-15) MEQ/L BUN (9-20) mg/dL Creatinine (0.66-1.25) mg/dL Estimated GFR ML/MIN Glucose (74-106) mg/dL POC Glucometer 132 H 186 H (50 to 500) mg/dL Lactic Acid (0.4-2.0) Calcium (8.4-10.2) mg/dL Phosphorus (2.5-4.5) mg/dL Magnesium 2.2 (1.6-2.3) mg/dL Total Bilirubin (0.2-1.3) mg/dL AST (17-59) U/L ALT (0-50) U/L Alkaline Phosphatase (38-126) U/L Serum Total Protein (6.3-8.2) g/dL Albumin (3.5-5.0) g/dL Amylase (30-110) U/L Lipase (23-300) U/L Urine Color (Yellow) Urine Appearance (Clear) Urine pH (4.6-8.0) Ur Specific [place] (1.005-1.030) Urine Protein (Negative) Urine Glucose (UA) (Negative) mg/dL Urine Ketones (Negative) Urine Blood (Negative) Urine Nitrite (Negative) Urine Bilirubin (Negative) Urine Urobilinogen (0.2) mg/dL Ur Leukocyte Esterase (Negative) U Hyaline Cast (Auto) (0-2) /LPF Urine Microscopic RBC (0-5) /HPF Urine Microscopic WBC (0-5) /HPF Ur Epithelial Cells (None Seen) /HPF Urine Bacteria (None Seen) /HPF Urine Culture Reflexed (NO) Ethyl Alcohol (0-10) mg/dL Discharge Exam General Appearance: no apparent distress Neurologic Exam: alert, oriented x 3, cooperative Eye Exam: PERRL Ears, Nose, Throat Exam: normal ENT inspection Neck Exam: normal inspection Respiratory Exam: normal breath sounds, lungs clear Cardiovascular Exam: regular rate/rhythm Gastrointestinal/Abdomen Exam: soft, normal bowel sounds Male Genitalia Exam: deferred Rectal Exam: deferred Final Diagnosis/Problem List - Final Discharge Diagnosis/Problem (1) DKA (diabetic ketoacidoses) Current Visit: Yes Status: Acute Code(s): E11.10 - TYPE 2 DIABETES MELLITUS WITH KETOACIDOSIS WITHOUT COMA (2) History of medication noncompliance Current Visit: Yes Status: Acute Code(s): Z91.148 - PATIENT'S OTHER NONCOMPL WITH MEDS REGIMEN FOR OTHER REASON (3) SYED (acute kidney injury) Current Visit: No Status: Acute Code(s): N17.9 - ACUTE KIDNEY FAILURE, UNSPECIFIED (4) Hypertension Current Visit: No Status: Acute Code(s): I10 - ESSENTIAL (PRIMARY) HYPERTENSION (5) IDDM (insulin dependent diabetes mellitus) Current Visit: No Status: Acute Code(s): AUT2767 - (6) Vomiting Current Visit: No Status: Acute Code(s): R11.10 - VOMITING, UNSPECIFIED (7) Peripheral neuropathy Current Visit: No Status: Chronic Code(s): G62.9 - POLYNEUROPATHY, UNSPECIFIED (8) Seizure disorder Current Visit: No Status: Chronic Code(s): G40.909 - EPILEPSY, UNSP, NOT INTRACTABLE, WITHOUT STATUS EPILEPTICUS - Discharge Disposition: Home, Self-Care Condition: Fair Prescriptions: No Action Insulin Glargine [Lantus Insulin] 35 units SQ QAM Gabapentin 600 mg PO TID Amlodipine Besylate [Norvasc] 10 mg PO DAILY Multivitamins,Therapeutic Tab* [Theragran Multivitamin] 1 tab PO DAILY Carvedilol 3.125 mg [Coreg 3.125 MG] 3.125 mg PO BID 30 Days #30 tablet Lisinopril 10 mg [Zestril 10 MG] 10 mg PO DAILY 30 Days #30 tablet Lactobacillus Acidophilus [Acidophilus TABLET] 1 tab PO DAILY 30 Days #30 tablet Insulin Lispro [Humalog Kwikpen U-100] 1 unit SQ ACHS Follow up with: RUSTY ORTIZ MD [Primary Care Provider] -
[2024-04-02] MEDS ORDERED: PROTONIX 40 MG IV IV SCH (20:00)
== END 2024-04-02 11:42 | disposition left against medical advice (07) ==
LOC: ED 19:14 → ICU 23:42 → INTOOBSV 23:42
PROVIDERS: ADMIT Student in an Organized Health Care Education/Training Program; ATTEND Student in an Organized Health Care Education/Training Program
DX: E11.10 Type 2 diabetes mellitus with ketoacidosis without coma (principal); Z91.148 Patient's other noncompliance with medication regimen for other reason; N17.9 Acute kidney failure, unspecified; I10 Essential (primary) hypertension; R11.10 Vomiting, unspecified; G62.9 Polyneuropathy, unspecified; G40.909 Epilepsy, unspecified, not intractable, without status epilepticus; Z79.899 Other long term (current) drug therapy
CPT/HCPCS: 36000; 36415; 80048; 80053; 81001; 82077; 82150; 82947; 83036; 83605; 83690; 83735; 84100; 85025; 93268; 96360; 96361; 96374; 96375; 99285; 99291; J1815; J1817; J2405; Q3014; G0378

== ENCOUNTER 2024-04-08 16:05 | Observation (INO) | payer OTHER ==
[2024-04-08] MEDS ORDERED: D50W 50 ml Abboject IV ONE ×3 (16:10→18:38)
--- NOTE | 2024-04-08 16:11 | ERPHSYRPT ---
- History of Present Illness Time Seen by Provider: 04/08/24 16:11 Source: family, old records Physician History: This is a 63-year-old white male patient of Dr. Ortiz who is a brittle diabetic and also is noncompliant with his medication and has had several episodes of recurrent DKA and presents to the emergency room by private vehicle (after his significant other declined transportation by paramedics) secondary to sudden change in his mental status. It occurred approximately 3:30 PM prior to arrival. Patient has had several episodes in the past of the sudden drop in his blood sugar level. His blood sugar level was measured at 121 at the [facility] where the patient was already sitting in a wheelchair doing shopping. However he had a sudden change in his mental status and noticed left-sided weakness per patient family. Ambulance arrived and they declined taking the patient by ambulance. Patient arrived to our facility with a blood sugar of 65. Patient was admitted into this hospital on 04/01/2024 with DKA. According to the notes he was discharged to home. However, patient's significant other reports that a few days ago the patient had to be admitted into the hospital in [facility] and was discharged recently with diagnosis of recurrent DKA. Timing/Duration: today Severity: moderate Character of Deficits: other (Patient has altered mental status. He is not awake and alert enough to follow any commands.) Baseline/Normal Cognition: poor alertness Current Cognition: poor alertness Associated Symptoms: weakness, other (Lethargic) Allergies/Adverse Reactions: codeine Adverse Reaction (Severe, Verified 04/01/24 19:23) Vomiting hydrocodone bitartrate [From Vicodin] Adverse Reaction (Severe, Verified 04/01/24 19:23) Vomiting propoxyphene [From Darvocet-N 100] Adverse Reaction (Verified 04/01/24 19:23) Home Medications: Insulin Glargine [Lantus Insulin] 35 units SQ QAM 03/25/19 [History] Gabapentin 600 mg PO TID 04/01/23 [History] Amlodipine Besylate [Norvasc] 10 mg PO DAILY 03/07/24 [History] Multivitamins,Therapeutic Tab* [Theragran Multivitamin] 1 tab PO DAILY 03/07/24 [History] Insulin Lispro [Humalog Kwikpen U-100] 1 unit SQ ACHS 04/01/24 [History] Hx Tetanus, Diphtheria Vaccination/Date Given: Yes Hx Influenza Vaccination/Date Given: No Hx Pneumococcal Vaccination/Date Given: No Travel Risk - International Travel Have you traveled outside of the country in past 3 weeks: No - Emerging Infectious Disease Are you exhibiting symptoms associated with any current EIDs: Yes Symptoms: Headaches/Body Aches/, Vomitting Comment: nausea, vomiting, headache - Review of Systems Constitutional: Lethargy, Weakness Eyes: No Symptoms Ears, Nose, & Throat: No Symptoms Respiratory: No Symptoms Cardiac: No Symptoms Abdominal/Gastrointestinal: No Symptoms Genitourinary Symptoms: No Symptoms Musculoskeletal: No Symptoms Skin: No Symptoms Neurological: Other (His blood sugar is relatively low for him and he is not able to answer any questions at this time.) Psychological: No Symptoms Endocrine: No Symptoms Hematologic/Lymphatic: No Symptoms Immunological/Allergic: No Symptoms All Other Systems: Reviewed and Negative - Past Medical History Pertinent Past Medical History: Yes Neurological History: Seizures ENT History: No Pertinent History Cardiac History: No Pertinent History Respiratory History: No Pertinent History Endocrine Medical History: Diabetes Type II Musculoskeletal History: No Pertinent History GI Medical History: No Pertinent History History: No Pertinent History Psycho-Social History: No Pertinent History Male Reproductive Disorders: No Pertinent History Other Medical History: FX L LEG AND FOOT subsequent infection. gangrene, sepsis 2014 - Past Surgical History Past Surgical History: Yes Neuro Surgical History: No Pertinent History Cardiac: No Pertinent History Respiratory: No Pertinent History Gastrointestinal: Cholecystectomy, Hernia Repair Genitourinary: No Pertinent History Musculoskeletal: Orthopedic Surgery Male Surgical History: No Pertinent History Other Surgical History: right femur fixed at age 15. left foot broke at age 20. left leg and foot surgery ,,I&D of left foot, polyps removed - Social History Smoking Status: Never smoker How long have you smoked: 1 yr Exposure to second hand smoke: No Drug Use: none Patient Lives Alone: No - Social Determinants of Health Will the patient participate in the screening: Yes Do you worry about a steady place to live?: No In the past 12 months,have you had to go without utilities?: No Transportation Issues: No Has anyone in your support network made you feel unsafe?: No Have you or anyone in your house had to go without enough: No - Nursing Vital Signs Nursing Vital Signs: Initial Vital Signs Temperature 99.0 F 04/08/24 16:06 Pulse Rate 76 04/08/24 16:06 Respiratory Rate 20 04/08/24 16:06 Blood Pressure 111/59 04/08/24 16:06 O2 Sat by Pulse Oximetry 95 04/08/24 16:06 Pain Scale Pain Intensity 0 - Howard Coma Scale Best Eye Response (Howard): (2) open to pain Best Verbal Response (Howard): (2) incomprehsible sounds Best Motor Response (Cardale): (5) localizes to pain Cardale Total: 9 - Physical Exam General Appearance: lethargy Eye Exam: bilateral eye: normal inspection, PERRL, EOMI Ears, Nose, Throat Exam: normal ENT inspection, moist mucous membranes Neck Exam: normal inspection, non-tender, supple, full range of motion Respiratory: normal breath sounds, lungs clear, airway intact, No chest tenderness, No respiratory distress Cardiovascular: regular rate/rhythm, normal heart sounds, normal peripheral puls es Gastrointestinal: soft, normal bowel sounds, No tenderness Rectal Exam: not done Back Exam: normal inspection, No vertebral tenderness Extremity Exam: normal inspection, pelvis stable Mental Status: alert, oriented x 3, 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 Exam: PERRL Skin Exam: normal color, warm, dry SpO2 Interpretation: normal O2 Delivery: Room Air - Course Nursing assessment & vital signs reviewed: Yes EKG Interpreted by Me: RATE (85), Sinus Rhythm, NORMAL AXIS, prolonged QT interval, NORMAL QRS, Other (No acute ischemic changes on today's twelve-lead EKG.) Ordered Tests: Active Orders 24 hr Category Date Time Status Cashier Manager STAT Care 04/08/24 16:14 Active Cath for Specimen-Straight STAT Care 04/08/24 16:16 Active EKG-ER Only STAT Care 04/08/24 16:12 Active IV Insertion STAT Care 04/08/24 16:12 Active NPO (ED) STAT Care 04/08/24 16:13 Active POCT Glucose Check ONCE Care 04/08/24 16:12 Active Pulse Oximetry (ED) STAT Care 04/08/24 16:12 Active Pulse Oximetry (ED) STAT Care 04/08/24 16:14 Active CHEST 1 VIEW (PORTABLE) Stat Exams 04/08/24 18:08 Taken HEAD WITHOUT CONTRAST [CT] Stat Exams 04/08/24 16:13 Completed BLOOD CULTURE Stat Lab 04/08/24 18:08 Ordered CBC W DIFF Stat Lab 04/08/24 16:30 Completed CMP Stat Lab 04/08/24 16:30 Completed CULTURE,URINE Stat Lab 04/08/24 18:15 Received ETHYL ALCOHOL Stat Lab 04/08/24 16:30 Completed Lactic Acid Stat Lab 04/08/24 18:36 Completed Lactic Acid Urgent Lab 04/08/24 16:34 Completed MAGNESIUM Stat Lab 04/08/24 16:30 Completed Manual Differential NC Stat Lab 04/08/24 16:30 Completed POCT GLUCOSE Stat Lab 04/08/24 17:31 Completed POCT GLUCOSE Stat Lab 04/08/24 18:36 Completed UA W/RFX UR CULTURE Stat Lab 04/08/24 18:15 Completed Urine Triage Profile Stat Lab 04/08/24 18:15 Completed Medication Summary Generic Name Dose Route Start Last Admin Trade Name Vickie PRN Reason Stop Dose Admin Dextrose/Lactated Ringer's 1,000 mls @ 100 mls/hr 04/08/24 17:00 04/08/24 16:51 Dextrose 5%-Lr Iv Solution 1000 Ml IV 05/08/24 16:59 100 mls/hr .Q10H AURA Administration Levofloxacin/Dextrose 500 mg in 100 mls @ 100 mls/hr 04/08/24 19:12 Levofloxacin 500mg/100ml D5w IV 04/08/24 20:11 STAT STA Discontinued Medications Generic Name Dose Route Start Last Admin Trade Name Vickie PRN Reason Stop Dose Admin Acetaminophen 650 mg 04/08/24 18:08 04/08/24 18:11 Acetaminophen 325 Mg Tablet PO 04/08/24 18:09 650 mg STAT ONE Administration Acetaminophen Confirm 04/08/24 18:11 Acetaminophen 325 Mg Tablet Administered 04/08/24 18:12 Dose 650 mg .ROUTE .STK-MED ONE Dextrose Confirm 04/08/24 16:10 Dextrose 50%-Water 50 Ml Abboject Administered 04/08/24 16:11 Dose 50 ml IV .STK-MED ONE Dextrose 50 ml 04/08/24 16:14 04/08/24 16:31 Dextrose 50%-Water 50 Ml Abboject IV 04/08/24 16:15 50 ml STAT ONE Administration Dextrose 50 ml 04/08/24 17:32 04/08/24 17:38 Dextrose 50%-Water 50 Ml Abboject IV 04/08/24 17:33 50 ml STAT ONE Administration Dextrose Confirm 04/08/24 17:33 Dextrose 50%-Water 50 Ml Abboject Administered 04/08/24 17:34 Dose 50 ml IV .STK-MED ONE Dextrose 50 ml 04/08/24 18:38 04/08/24 18:39 Dextrose 50%-Water 50 Ml Abboject IV 04/08/24 18:39 50 ml STAT ONE Administration Dextrose Confirm 04/08/24 18:38 Dextrose 50%-Water 50 Ml Abboject Administered 04/08/24 18:39 Dose 50 ml IV .STK-MED ONE Lab/Rad Data: Laboratory Result Diagrams 04/08/24 16:30 04/08/24 16:30 Laboratory Results 04/08/24 04/08/24 04/08/24 Range/Units 18:36 18:36 18:15 WBC (4.23-9.07) x10^3/uL RBC (4.63-6.08) x10^6/uL Hgb (13.7-17.5) g/dL Hct (40.1-51.0) % MCV (79.0-92.2) fL MCH (25.7-32.2) pg MCHC (32.3-36.5) g/dL RDW (11.6-14.4) % Plt Count (163-337) x10^3/uL MPV (9.4-12.4) fL Sodium (135-145) mmol/L Potassium (3.5-5.1) mmol/L Chloride (98-107) mmol/L Carbon Dioxide (22-30) mmol/L Anion Gap (5-15) MEQ/L BUN (9-20) mg/dL Creatinine (0.66-1.25) mg/dL Estimated GFR ML/MIN Glucose (74-106) mg/dL POC Glucometer 38 L* (50 to 500) mg/dL Lactic Acid 1.5 (0.4-2.0) Calcium (8.4-10.2) mg/dL Magnesium (1.6-2.3) mg/dL Total Bilirubin (0.2-1.3) mg/dL AST (17-59) U/L ALT (0-50) U/L Alkaline Phosphatase (38-126) U/L Ammonia (9-30) umol/L Serum Total Protein (6.3-8.2) g/dL Albumin (3.5-5.0) g/dL Urine Color (Yellow) Urine Appearance (Clear) Urine pH (4.6-8.0) Ur Specific [place] (1.005-1.030) Urine Protein (Negative) Urine Glucose (UA) (Negative) mg/dL Urine Ketones (Negative) Urine Blood (Negative) Urine Nitrite (Negative) Urine Bilirubin (Negative) Urine Urobilinogen (0.2) mg/dL Ur Leukocyte Esterase (Negative) U Hyaline Cast (Auto) (0-2) /LPF Urine Microscopic RBC (0-5) /HPF Urine Microscopic WBC (0-5) /HPF Ur Epithelial Cells (None Seen) /HPF Urine Bacteria (None Seen) /HPF Urine Culture Reflexed (NO) Urine Opiates Level NEGATIVE (NEGATIVE) Ur Methadone NEGATIVE (NEGATIVE) Urine Barbiturates NEGATIVE (NEGATIVE) Ur Phencyclidine (PCP) NEGATIVE (NEGATIVE) Urine Amphetamine NEGATIVE (NEGATIVE) U Benzodiazepine Level NEGATIVE (NEGATIVE) Urine Cocaine NEGATIVE (NEGATIVE) Urine Marijuana (THC) NEGATIVE (NEGATIVE) Ethyl Alcohol (0-10) mg/dL 04/08/24 04/08/24 04/08/24 Range/Units 18:15 17:31 16:34 WBC (4.23-9.07) x10^3/uL RBC (4.63-6.08) x10^6/uL Hgb (13.7-17.5) g/dL Hct (40.1-51.0) % MCV (79.0-92.2) fL MCH (25.7-32.2) pg MCHC (32.3-36.5) g/dL RDW (11.6-14.4) % Plt Count (163-337) x10^3/uL MPV (9.4-12.4) fL Sodium (135-145) mmol/L Potassium (3.5-5.1) mmol/L Chloride (98-107) mmol/L Carbon Dioxide (22-30) mmol/L Anion Gap (5-15) MEQ/L BUN (9-20) mg/dL Creatinine (0.66-1.25) mg/dL Estimated GFR ML/MIN Glucose (74-106) mg/dL POC Glucometer 28 L* (50 to 500) mg/dL Lactic Acid 2.1 H (0.4-2.0) Calcium (8.4-10.2) mg/dL Magnesium (1.6-2.3) mg/dL Total Bilirubin (0.2-1.3) mg/dL AST (17-59) U/L ALT (0-50) U/L Alkaline Phosphatase (38-126) U/L Ammonia (9-30) umol/L Serum Total Protein (6.3-8.2) g/dL Albumin (3.5-5.0) g/dL Urine Color Yellow (Yellow) Urine Appearance Clear (Clear) Urine pH 5.5 (4.6-8.0) Ur Specific [place] 1.015 (1.005-1.030) Urine Protein 30 (Negative) Urine Glucose (UA) >=1000 A (Negative) mg/dL Urine Ketones Negative (Negative) Urine Blood Negative (Negative) Urine Nitrite Negative (Negative) Urine Bilirubin Negative (Negative) Urine Urobilinogen 0.2 (0.2) mg/dL Ur Leukocyte Esterase Negative (Negative) U Hyaline Cast (Auto) 3-5 A (0-2) /LPF Urine Microscopic RBC 0-2 (0-5) /HPF Urine Microscopic WBC 0-2 (0-5) /HPF Ur Epithelial Cells None Seen (None Seen) /HPF Urine Bacteria None Seen (None Seen) /HPF Urine Culture Reflexed ORDERED SEPARATELY (NO) Urine Opiates Level (NEGATIVE) Ur Methadone (NEGATIVE) Urine Barbiturates (NEGATIVE) Ur Phencyclidine (PCP) (NEGATIVE) Urine Amphetamine (NEGATIVE) U Benzodiazepine Level (NEGATIVE) Urine Cocaine (NEGATIVE) Urine Marijuana (THC) (NEGATIVE) Ethyl Alcohol (0-10) mg/dL 04/08/24 04/08/24 04/08/24 Range/Units 16:30 16:30 16:30 WBC (4.23-9.07) x10^3/uL RBC (4.63-6.08) x10^6/uL Hgb (13.7-17.5) g/dL Hct (40.1-51.0) % MCV (79.0-92.2) fL MCH (25.7-32.2) pg MCHC (32.3-36.5) g/dL RDW (11.6-14.4) % Plt Count (163-337) x10^3/uL MPV (9.4-12.4) fL Sodium 139 (135-145) mmol/L Potassium 3.7 (3.5-5.1) mmol/L Chloride 108 H (98-107) mmol/L Carbon Dioxide 23 (22-30) mmol/L Anion Gap 12.1 (5-15) MEQ/L BUN 25 H (9-20) mg/dL Creatinine 1.46 H (0.66-1.25) mg/dL Estimated GFR 53.4 ML/MIN Glucose 106 (74-106) mg/dL POC Glucometer (50 to 500) mg/dL Lactic Acid (0.4-2.0) Calcium 10.0 (8.4-10.2) mg/dL Magnesium 1.9 (1.6-2.3) mg/dL Total Bilirubin 0.70 (0.2-1.3) mg/dL AST 20 (17-59) U/L ALT 17 (0-50) U/L Alkaline Phosphatase 66 (38-126) U/L Ammonia < 9 L (9-30) umol/L Serum Total Protein 6.5 (6.3-8.2) g/dL Albumin 3.9 (3.5-5.0) g/dL Urine Color (Yellow) Urine Appearance (Clear) Urine pH (4.6-8.0) Ur Specific [place] (1.005-1.030) Urine Protein (Negative) Urine Glucose (UA) (Negative) mg/dL Urine Ketones (Negative) Urine Blood (Negative) Urine Nitrite (Negative) Urine Bilirubin (Negative) Urine Urobilinogen (0.2) mg/dL Ur Leukocyte Esterase (Negative) U Hyaline Cast (Auto) (0-2) /LPF Urine Microscopic RBC (0-5) /HPF Urine Microscopic WBC (0-5) /HPF Ur Epithelial Cells (None Seen) /HPF Urine Bacteria (None Seen) /HPF Urine Culture Reflexed (NO) Urine Opiates Level (NEGATIVE) Ur Methadone (NEGATIVE) Urine Barbiturates (NEGATIVE) Ur Phencyclidine (PCP) (NEGATIVE) Urine Amphetamine (NEGATIVE) U Benzodiazepine Level (NEGATIVE) Urine Cocaine (NEGATIVE) Urine Marijuana (THC) (NEGATIVE) Ethyl Alcohol < 10 (0-10) mg/dL 04/08/24 Range/Units 16:30 WBC 7.4 (4.23-9.07) x10^3/uL RBC 3.44 L (4.63-6.08) x10^6/uL Hgb 10.1 L (13.7-17.5) g/dL Hct 30.2 L (40.1-51.0) % MCV 87.8 (79.0-92.2) fL MCH 29.4 (25.7-32.2) pg MCHC 33.4 (32.3-36.5) g/dL RDW 13.4 (11.6-14.4) % Plt Count 202 (163-337) x10^3/uL MPV 11.2 (9.4-12.4) fL Sodium (135-145) mmol/L Potassium (3.5-5.1) mmol/L Chloride (98-107) mmol/L Carbon Dioxide (22-30) mmol/L Anion Gap (5-15) MEQ/L BUN (9-20) mg/dL Creatinine (0.66-1.25) mg/dL Estimated GFR ML/MIN Glucose (74-106) mg/dL POC Glucometer (50 to 500) mg/dL Lactic Acid (0.4-2.0) Calcium (8.4-10.2) mg/dL Magnesium (1.6-2.3) mg/dL Total Bilirubin (0.2-1.3) mg/dL AST (17-59) U/L ALT (0-50) U/L Alkaline Phosphatase (38-126) U/L Ammonia (9-30) umol/L Serum Total Protein (6.3-8.2) g/dL Albumin (3.5-5.0) g/dL Urine Color (Yellow) Urine Appearance (Clear) Urine pH (4.6-8.0) Ur Specific [place] (1.005-1.030) Urine Protein (Negative) Urine Glucose (UA) (Negative) mg/dL Urine Ketones (Negative) Urine Blood (Negative) Urine Nitrite (Negative) Urine Bilirubin (Negative) Urine Urobilinogen (0.2) mg/dL Ur Leukocyte Esterase (Negative) U Hyaline Cast (Auto) (0-2) /LPF Urine Microscopic RBC (0-5) /HPF Urine Microscopic WBC (0-5) /HPF Ur Epithelial Cells (None Seen) /HPF Urine Bacteria (None Seen) /HPF Urine Culture Reflexed (NO) Urine Opiates Level (NEGATIVE) Ur Methadone (NEGATIVE) Urine Barbiturates (NEGATIVE) Ur Phencyclidine (PCP) (NEGATIVE) Urine Amphetamine (NEGATIVE) U Benzodiazepine Level (NEGATIVE) Urine Cocaine (NEGATIVE) Urine Marijuana (THC) (NEGATIVE) Ethyl Alcohol (0-10) mg/dL - Progress Progress Note: 04/08/24 16:39 Medical decision making and the assignment of high complexity to this patient's medical issues based on review of the patient's past medical history, review the patient's last inpatient admission, review of the patient's medication list, review patient drug allergy list, history present illness and physical findings on examination. The workup in this patient includes placement of intravenous line, infusion of D5 LR, infusion of amp of D50, CT scan of the head without contrast, CBC, CMP, lactic acid level, straight catheter for urine retrieval, magnesium level, ammonia level 04/08/24 16:57 Differential diagnosis includes but not limited to acute intracerebral abnormality, hypoglycemia, electrolyte abnormalities, urinary tract infection, hyperammonemia Reassessment of the patient after he returned from the CT scan reveals the patient to be now more awake alert and oriented. He is moving all extremities. He actually states he is feeling better. He has no complaints of chest pain, shortness of breath or abdominal pain. 04/08/24 17:43 Patient's mental status change suddenly again. We rechecked his blood sugar and it was 26. This is despite having dextrose LR at 100/h. We provided the patient with an amp of D50. 04/08/24 18:10 I have interpreted the laboratory data results that have returned. We are still waiting for the urinalysis. The patient's temperature went from 99.8-100.8. Will provide the patient with 650 mg Tylenol orally, draw a blood culture and perform a chest x-ray. CT scan of the head without contrast was interpreted by the radiologist and I reviewed the impression. Depression states no significant acute abnormality. Bilateral white matter microvascular ischemic changes that are chronic. The patient took his 35 units of Lantus insulin this morning as he does every morning. Per patient family report, they believe that he has taken 30 to 35 units of sliding scale Humalog prior to 330pm this afternoon 04/08/24 19:33 The patient's QT interval is prolonged so I am avoiding Zofran in the admit orders. I am also avoiding Compazine in order to avoid sedating medication. I will let the admitting physician determine which antiemetic the patient will be placed on. Discussed with Dr.: Other (dr. gomes) Counseled pt/family regarding: lab results, diagnosis, rad results Medical Desision Making - Independent Historian Additional History obtained from: Spouse, Family - Discussion of managment Care discussed with:: hospitalist Reviewed:: Need for additional workup Agreed on:: decision to admit Will see patient: in hospital - Diagnostic Testing Diagnostic test were ordered, analyzed, and reviewed by me: Yes Radiological Interpretation: Reviewed by me, Teleradiologist Report - Risk of complications The pt has a high risk of morbidity or mortality based on: Decision regarding hospitilization or escalation of hosp level of care - Departure Departure Disposition: In-patient Admission Clinical Impression: Altered mental status, Hypoglycemia, Fever Condition: Fair Critical Care Time: No Referrals: RUSTY ORTIZ MD [Primary Care Provider] - Follow up/PCP as directed
[2024-04-08] MEDS: D50W 50 ml Abboject IV ONE ×3 (16:31→18:39)
[2024-04-08 16:36] LABS: Hematocrit 30.2 % (40.1-51.0); Hemoglobin 10.1 g/dL (13.7-17.5); Mean Cell Volume 87.8 fL (79.0-92.2); Mean Corpuscular Hemoglobin 29.4 pg (25.7-32.2); Mean Corpuscular Hgb Concent. 33.4 g/dL (32.3-36.5); Mean Platelet Volume 11.2 fL (9.4-12.4); Platelet Count 202 x10^3/uL (163-337); Red Blood Count 3.44 x10^6/uL (4.63-6.08); Red Cell Distribution Width 13.4 % (11.6-14.4); White Blood Count 7.4 x10^3/uL (4.23-9.07)
[2024-04-08] MEDS ORDERED: Dextrose 5%-Lr IV Solution 1000 ML 1,000 ML IV ONE (16:49)
[2024-04-08] MEDS: Dextrose 5%-Lr IV Solution 1000 ML 1,000 ML IV SCH (16:51)
[2024-04-08 16:57] LABS: ALBUMIN 3.9 g/dL (3.5-5.0); ANION GAP 12.1 MEQ/L (5-15); BILIRUBIN,TOTAL 0.7 mg/dL (0.2-1.3); Creatinine 1 1.46 mg/dL (0.66-1.25); EST GLOMERULAR FILTRATION RATE 53.4 ML/MIN; Potassium 3.7 mmol/L (3.5-5.1); Total Protein 6.5 g/dL (6.3-8.2)
[2024-04-08 16:58] LABS: ETHYL ALCOHOL < 10 mg/dL (0-10); MAGNESIUM 1.9 mg/dL (1.6-2.3)
--- NOTE | 2024-04-08 18:05 | XRAY ---
CLINICAL HISTORY: Altered mental status COMPARISON: None TECHNIQUE: Axial non-contrast CT scan of the brain was performed from the skull base to the high parietal region. One of the following dose reduction techniques were utilized for this exam: Automated exposure control, adjustment of the mA and/or kV according to patient size, use of iterative reconstruction FINDINGS: Bilateral hypodense areas are noted in the subcortical white matter, suggestive of microvascular ischemic changes. There is a small hypodense area within the right internal capsule. The cerebral parenchyma exhibits normal attenuation. Christensen-white differentiation is well preserved. The ventricular system and subarachnoid CSF spaces are unremarkable. No midline shift was seen. The brainstem and cerebellum are normal in morphology and attenuation. No fracture was seen. IMPRESSION: No significant acute abnormality seen. Bilateral white matter microvascular ischemic changes. Electronically Signed by: Luis Freitas MD. (04/08/2024 18:01:38 EDT)
[2024-04-08] MEDS ORDERED: TYLENOL 325 MG ONE (18:11)
[2024-04-08] MEDS: TYLENOL 325 MG PO ONE ×2 (18:11→20:50)
[2024-04-08 18:32] LABS: Appearance Clear (Clear); Bacteria None Seen /HPF (None Seen); Bilirubin Negative (Negative); Blood Negative (Negative); Epithelial Cells None Seen /HPF (None Seen); Glucose, Urine >=1000 mg/dL (Negative); Ketones Negative (Negative); Leukocyte Esterase Negative (Negative); Nitrite Negative (Negative); Ph 5.5 (4.6-8.0); Protein,Urine Dip 30 (Negative); RBC 0-2 /HPF (0-5); Specific Gravity 1.015 (1.005-1.030); Urobilinogen 0.2 mg/dL (0.2); WBC 0-2 /HPF (0-5)
[2024-04-08 18:40] LABS: ADD URINE CULTURE? ORDERED SEPARATELY (NO)
[2024-04-08 18:43] LABS: Amphetamine,Urine NEGATIVE (NEGATIVE); Barbiturate,Urine NEGATIVE (NEGATIVE); Benzodiazepine,Urine NEGATIVE (NEGATIVE); Cocaine,Urine NEGATIVE (NEGATIVE); Methadone,Urine NEGATIVE (NEGATIVE); Opiate,Urine NEGATIVE (NEGATIVE); PCP,Urine NEGATIVE (NEGATIVE); THC,Urine NEGATIVE (NEGATIVE)
[2024-04-08] MEDS ORDERED: Levofloxacin 500MG/100ML D5W 500 MG/100 ML BAG IV ONE (19:35)
[2024-04-08] MEDS: Levofloxacin 500MG/100ML D5W 500 MG/100 ML BAG IV STA (19:38)
--- NOTE | 2024-04-08 20:05 | XRAY ---
Indication: Fever. Comparison: March 08, 2023 Portable chest again demonstrates normal heart and lungs with a few incidental calcified granulomas. Bony thorax intact again with mild degenerative changes. No new/acute findings.
[2024-04-08] MEDS ORDERED: HUMULIN R SQ PRN (20:14)
[2024-04-08 20:24] LABS: Eosinophil 2 % (0.00-3.0); Lymphocytes 30 % (24-44); Monocyte 6 % (0.0-12.0); Neutrophils 62 % (1.78-5.38); Platelet Estimate NORMAL (NORMAL); Total Cells Counted 100
[2024-04-08 20:36] LABS: INFLUENZA A NEGATIVE (NEGATIVE); INFLUENZA B NEGATIVE (NEGATIVE); RESPIRATORY SYNCTIAL VIRUS NEGATIVE (NEGATIVE); SARS-CoV-2 Xpert Express NEGATIVE (NEGATIVE)
[2024-04-08] MEDS ORDERED: MOTRIN 600 MG ONE (20:49)
[2024-04-08] MEDS: MOTRIN 600 MG PO ONE (20:50)
--- NOTE | 2024-04-08 21:38 | PCM.HP ---
History of Present Illness - Chief Complaint Chief Complaint: Hypoglycemia Date: 04/08/24 History of Present Illness: Mr. MOSQUERA is a 63 year old male with a past medical history significant for hypertension, diabetes with previous episodes/hospitalizations for DKA and hyperlipidemia who was brought to the ER after passing out at a store while riding an electric cart. Upon arrival, he was found to have low blood sugars in the 30s-40s despite amps of d50. His initial labs were notable for an elevated creatinine of 1.5, and he has been started on IVFs. He initially had a low grade temp that increased up to 101, so he was started on antibiotics and cultures sent. He is resting in bed, awake. Most history has been obtained from family at bedside. They report that he gave himself his usual dose of Lantus in the morning, did eat two meals and was giving himself Humalog throughout the day. - Review of Systems Constitutional: Fever, No Chills, No Fatigue, No Lethargy Eyes: No Vision Changes Ears, Nose, & Throat: No Sinus Drainage Respiratory: No Cough, No Short Of Breath Cardiac: No Chest Pain, No Edema, No Palpitations Abdominal/Gastrointestinal: No Abdominal Pain, No Nausea, No Vomiting, No Diarrhea Genitourinary Symptoms: No Dysuria, No Frequency, No Hematuria Musculoskeletal: No Back Pain, No Neck Pain Skin: No Rash Neurological: No Headache Psychological: No Suicidal Ideations Endocrine: No Polyuria, No Polydipsia Hematologic/Lymphatic: No Easy Bleeding Medications & Allergies Home Medications: Home Medication List Insulin Glargine [Lantus Insulin] 35 units SQ QAM 03/25/19 [History Confirmed 04/08/24] Gabapentin 600 mg PO TID 04/01/23 [History Confirmed 04/01/24] Amlodipine Besylate [Norvasc] 10 mg PO DAILY 03/07/24 [History Confirmed 04/01/24] Multivitamins,Therapeutic Tab* [Theragran Multivitamin] 1 tab PO DAILY 03/07/24 [History Confirmed 04/01/24] Lactobacillus Acidophilus [Acidophilus TABLET] 1 tab PO DAILY 30 Days #30 tablet 03/08/24 [Rx Confirmed 04/01/24] Lisinopril 10 mg [Zestril 10 MG] 10 mg PO DAILY 30 Days #30 tablet [Rx Confirmed 04/02/24] Insulin Lispro [Humalog Kwikpen U-100] 1 unit SQ ACHS 04/01/24 [History Confirmed 04/08/24] Allergies/Adverse Reactions: Allergies Allergy/AdvReac Type Severity Reaction Status Date / Time codeine AdvReac Severe Vomiting Verified 04/01/24 19:23 hydrocodone bitartrate AdvReac Severe Vomiting Verified 04/01/24 19:23 [From Vicodin] propoxyphene AdvReac Verified 04/01/24 19:23 [From Darvocet-N 100] - Past Medical History Past Medical History: Yes Neurological History: Seizures ENT History: No Pertinent History Cardiac History: No Pertinent History Respiratory History: No Pertinent History Endocrine Medical History: Diabetes Type II Musculoskelatal History: No Pertinent History GI Medical History: No Pertinent History History: No Pertinent History Pyscho-Social History: No Pertinent History Male Reproductive Disorders: No Pertinent History Comment: FX L LEG AND FOOT subsequent infection. gangrene, sepsis 2014 - Past Surgical History Past Surgical History: Yes Neuro Surgical History: No Pertinent History Cardiac History: No Pertinent History Respiratory Surgery: No Pertinent History GI Surgical History: Cholecystectomy, Hernia Repair Genitourinary Surgical Hx: No Pertinent History Musculskeletal Surgical Hx: Orthopedic Surgery Male Surgical History: No Pertinent History Other Surgical History: right femur fixed at age 15. left foot broke at age 20. left leg and foot surgery ,,I&D of left foot, polyps removed - Social History Smoking Status: Never smoker How long have you smoked: 1 yr Exposure to second hand smoke: No Alcohol: None Drug Use: none - Social Determinants of Health Will the patient participate in the screening: Yes Do you worry about a steady place to live?: No Do you have any problems with any of the following?: No known problems In the past 12 months,have you had to go without utilities?: No Have you or anyone in your house had to go without enough: No Transportation Issues: No Has anyone in your support network made you feel unsafe?: No Does the patient want assistance with any of the above?: No - Physical Exam Vital Signs: Vital Signs - 24 hr Temp Pulse Resp BP BP Pulse Ox 04/08/24 20:30 100 H 21 171/126 97 04/08/24 20:15 100 H 18 177/80 97 04/08/24 20:00 102 H 19 185/79 97 04/08/24 19:45 104 H 21 177/90 97 04/08/24 19:30 105 H 18 169/81 97 04/08/24 19:15 110 H 18 183/84 97 04/08/24 19:00 156/107 04/08/24 18:46 161/93 04/08/24 18:30 100 H 185/90 98 04/08/24 18:15 102 H 166/89 97 04/08/24 18:07 154/90 97 04/08/24 18:04 100 04/08/24 18:02 76/39 97 04/08/24 17:45 168/82 97 04/08/24 17:30 171/79 98 04/08/24 17:15 81 18 161/80 04/08/24 17:08 79 17 149/76 04/08/24 16:33 98 04/08/24 16:18 96 04/08/24 16:06 99.0 F 76 20 111/59 95 General Appearance: no apparent distress Neurologic Exam: cooperative Ears, Nose, Throat Exam: dry mucous membranes Neck Exam: supple Respiratory Exam: No respiratory distress Cardiovascular Exam: regular rate/rhythm Gastrointestinal/Abdomen Exam: soft Extremity Exam: No pedal edema, No swelling Skin Exam: No rash Results - Labs Lab/Micro Results: Lab Results-Last 24 Hours 04/08/24 04/08/24 04/08/24 Range/Units 16:30 16:30 16:30 WBC 7.4 (4.23-9.07) x10^3/uL RBC 3.44 L (4.63-6.08) x10^6/uL Hgb 10.1 L (13.7-17.5) g/dL Hct 30.2 L (40.1-51.0) % MCV 87.8 (79.0-92.2) fL MCH 29.4 (25.7-32.2) pg MCHC 33.4 (32.3-36.5) g/dL RDW 13.4 (11.6-14.4) % Plt Count 202 (163-337) x10^3/uL MPV 11.2 (9.4-12.4) fL Segmented Neutrophils 62 H (1.78-5.38) % Lymphocytes (Manual) 30 (24-44) % Monocytes (Manual) 6 (0.0-12.0) % Eosinophils (Manual) 2 (0.00-3.0) % Platelet Estimate NORMAL (NORMAL) RBC Morphology NORMAL Sodium 139 (135-145) mmol/L Potassium 3.7 (3.5-5.1) mmol/L Chloride 108 H (98-107) mmol/L Carbon Dioxide 23 (22-30) mmol/L Anion Gap 12.1 (5-15) MEQ/L BUN 25 H (9-20) mg/dL Creatinine 1.46 H (0.66-1.25) mg/dL Estimated GFR 53.4 ML/MIN Glucose 106 (74-106) mg/dL POC Glucometer (50 to 500) mg/dL Lactic Acid (0.4-2.0) Calcium 10.0 (8.4-10.2) mg/dL Magnesium 1.9 (1.6-2.3) mg/dL Total Bilirubin 0.70 (0.2-1.3) mg/dL AST 20 (17-59) U/L ALT 17 (0-50) U/L Alkaline Phosphatase 66 (38-126) U/L Ammonia (9-30) umol/L Serum Total Protein 6.5 (6.3-8.2) g/dL Albumin 3.9 (3.5-5.0) g/dL Urine Color (Yellow) Urine Appearance (Clear) Urine pH (4.6-8.0) Ur Specific [place] (1.005-1.030) Urine Protein (Negative) Urine Glucose (UA) (Negative) mg/dL Urine Ketones (Negative) Urine Blood (Negative) Urine Nitrite (Negative) Urine Bilirubin (Negative) Urine Urobilinogen (0.2) mg/dL Ur Leukocyte Esterase (Negative) U Hyaline Cast (Auto) (0-2) /LPF Urine Microscopic RBC (0-5) /HPF Urine Microscopic WBC (0-5) /HPF Ur Epithelial Cells (None Seen) /HPF Urine Bacteria (None Seen) /HPF Urine Culture Reflexed (NO) Urine Opiates Level (NEGATIVE) Ur Methadone (NEGATIVE) Urine Barbiturates (NEGATIVE) Ur Phencyclidine (PCP) (NEGATIVE) Urine Amphetamine (NEGATIVE) U Benzodiazepine Level (NEGATIVE) Urine Cocaine (NEGATIVE) Urine Marijuana (THC) (NEGATIVE) Ethyl Alcohol < 10 (0-10) mg/dL Influenza Type A Ag (NEGATIVE) Influenza Type B Ag (NEGATIVE) RSV (PCR) (NEGATIVE) SARS-CoV-2 (PCR) (NEGATIVE) 04/08/24 04/08/24 04/08/24 Range/Units 16:30 16:34 17:31 WBC (4.23-9.07) x10^3/uL RBC (4.63-6.08) x10^6/uL Hgb (13.7-17.5) g/dL Hct (40.1-51.0) % MCV (79.0-92.2) fL MCH (25.7-32.2) pg MCHC (32.3-36.5) g/dL RDW (11.6-14.4) % Plt Count (163-337) x10^3/uL MPV (9.4-12.4) fL Segmented Neutrophils (1.78-5.38) % Lymphocytes (Manual) (24-44) % Monocytes (Manual) (0.0-12.0) % Eosinophils (Manual) (0.00-3.0) % Platelet Estimate (NORMAL) RBC Morphology Sodium (135-145) mmol/L Potassium (3.5-5.1) mmol/L Chloride (98-107) mmol/L Carbon Dioxide (22-30) mmol/L Anion Gap (5-15) MEQ/L BUN (9-20) mg/dL Creatinine (0.66-1.25) mg/dL Estimated GFR ML/MIN Glucose (74-106) mg/dL POC Glucometer 28 L* (50 to 500) mg/dL Lactic Acid 2.1 H (0.4-2.0) Calcium (8.4-10.2) mg/dL Magnesium (1.6-2.3) mg/dL Total Bilirubin (0.2-1.3) mg/dL AST (17-59) U/L ALT (0-50) U/L Alkaline Phosphatase (38-126) U/L Ammonia < 9 L (9-30) umol/L Serum Total Protein (6.3-8.2) g/dL Albumin (3.5-5.0) g/dL Urine Color (Yellow) Urine Appearance (Clear) Urine pH (4.6-8.0) Ur Specific [place] (1.005-1.030) Urine Protein (Negative) Urine Glucose (UA) (Negative) mg/dL Urine Ketones (Negative) Urine Blood (Negative) Urine Nitrite (Negative) Urine Bilirubin (Negative) Urine Urobilinogen (0.2) mg/dL Ur Leukocyte Esterase (Negative) U Hyaline Cast (Auto) (0-2) /LPF Urine Microscopic RBC (0-5) /HPF Urine Microscopic WBC (0-5) /HPF Ur Epithelial Cells (None Seen) /HPF Urine Bacteria (None Seen) /HPF Urine Culture Reflexed (NO) Urine Opiates Level (NEGATIVE) Ur Methadone (NEGATIVE) Urine Barbiturates (NEGATIVE) Ur Phencyclidine (PCP) (NEGATIVE) Urine Amphetamine (NEGATIVE) U Benzodiazepine Level (NEGATIVE) Urine Cocaine (NEGATIVE) Urine Marijuana (THC) (NEGATIVE) Ethyl Alcohol (0-10) mg/dL Influenza Type A Ag (NEGATIVE) Influenza Type B Ag (NEGATIVE) RSV (PCR) (NEGATIVE) SARS-CoV-2 (PCR) (NEGATIVE) 04/08/24 04/08/24 04/08/24 Range/Units 18:15 18:15 18:36 WBC (4.23-9.07) x10^3/uL RBC (4.63-6.08) x10^6/uL Hgb (13.7-17.5) g/dL Hct (40.1-51.0) % MCV (79.0-92.2) fL MCH (25.7-32.2) pg MCHC (32.3-36.5) g/dL RDW (11.6-14.4) % Plt Count (163-337) x10^3/uL MPV (9.4-12.4) fL Segmented Neutrophils (1.78-5.38) % Lymphocytes (Manual) (24-44) % Monocytes (Manual) (0.0-12.0) % Eosinophils (Manual) (0.00-3.0) % Platelet Estimate (NORMAL) RBC Morphology Sodium (135-145) mmol/L Potassium (3.5-5.1) mmol/L Chloride (98-107) mmol/L Carbon Dioxide (22-30) mmol/L Anion Gap (5-15) MEQ/L BUN (9-20) mg/dL Creatinine (0.66-1.25) mg/dL Estimated GFR ML/MIN Glucose (74-106) mg/dL POC Glucometer (50 to 500) mg/dL Lactic Acid 1.5 (0.4-2.0) Calcium (8.4-10.2) mg/dL Magnesium (1.6-2.3) mg/dL Total Bilirubin (0.2-1.3) mg/dL AST (17-59) U/L ALT (0-50) U/L Alkaline Phosphatase (38-126) U/L Ammonia (9-30) umol/L Serum Total Protein (6.3-8.2) g/dL Albumin (3.5-5.0) g/dL Urine Color Yellow (Yellow) Urine Appearance Clear (Clear) Urine pH 5.5 (4.6-8.0) Ur Specific [place] 1.015 (1.005-1.030) Urine Protein 30 (Negative) Urine Glucose (UA) >=1000 A (Negative) mg/dL Urine Ketones Negative (Negative) Urine Blood Negative (Negative) Urine Nitrite Negative (Negative) Urine Bilirubin Negative (Negative) Urine Urobilinogen 0.2 (0.2) mg/dL Ur Leukocyte Esterase Negative (Negative) U Hyaline Cast (Auto) 3-5 A (0-2) /LPF Urine Microscopic RBC 0-2 (0-5) /HPF Urine Microscopic WBC 0-2 (0-5) /HPF Ur Epithelial Cells None Seen (None Seen) /HPF Urine Bacteria None Seen (None Seen) /HPF Urine Culture Reflexed ORDERED SEPARATELY (NO) Urine Opiates Level NEGATIVE (NEGATIVE) Ur Methadone NEGATIVE (NEGATIVE) Urine Barbiturates NEGATIVE (NEGATIVE) Ur Phencyclidine (PCP) NEGATIVE (NEGATIVE) Urine Amphetamine NEGATIVE (NEGATIVE) U Benzodiazepine Level NEGATIVE (NEGATIVE) Urine Cocaine NEGATIVE (NEGATIVE) Urine Marijuana (THC) NEGATIVE (NEGATIVE) Ethyl Alcohol (0-10) mg/dL Influenza Type A Ag (NEGATIVE) Influenza Type B Ag (NEGATIVE) RSV (PCR) (NEGATIVE) SARS-CoV-2 (PCR) (NEGATIVE) 04/08/24 04/08/24 04/08/24 Range/Units 18:36 19:23 19:55 WBC (4.23-9.07) x10^3/uL RBC (4.63-6.08) x10^6/uL Hgb (13.7-17.5) g/dL Hct (40.1-51.0) % MCV (79.0-92.2) fL MCH (25.7-32.2) pg MCHC (32.3-36.5) g/dL RDW (11.6-14.4) % Plt Count (163-337) x10^3/uL MPV (9.4-12.4) fL Segmented Neutrophils (1.78-5.38) % Lymphocytes (Manual) (24-44) % Monocytes (Manual) (0.0-12.0) % Eosinophils (Manual) (0.00-3.0) % Platelet Estimate (NORMAL) RBC Morphology Sodium (135-145) mmol/L Potassium (3.5-5.1) mmol/L Chloride (98-107) mmol/L Carbon Dioxide (22-30) mmol/L Anion Gap (5-15) MEQ/L BUN (9-20) mg/dL Creatinine (0.66-1.25) mg/dL Estimated GFR ML/MIN Glucose (74-106) mg/dL POC Glucometer 38 L* 143 H (50 to 500) mg/dL Lactic Acid (0.4-2.0) Calcium (8.4-10.2) mg/dL Magnesium (1.6-2.3) mg/dL Total Bilirubin (0.2-1.3) mg/dL AST (17-59) U/L ALT (0-50) U/L Alkaline Phosphatase (38-126) U/L Ammonia (9-30) umol/L Serum Total Protein (6.3-8.2) g/dL Albumin (3.5-5.0) g/dL Urine Color (Yellow) Urine Appearance (Clear) Urine pH (4.6-8.0) Ur Specific [place] (1.005-1.030) Urine Protein (Negative) Urine Glucose (UA) (Negative) mg/dL Urine Ketones (Negative) Urine Blood (Negative) Urine Nitrite (Negative) Urine Bilirubin (Negative) Urine Urobilinogen (0.2) mg/dL Ur Leukocyte Esterase (Negative) U Hyaline Cast (Auto) (0-2) /LPF Urine Microscopic RBC (0-5) /HPF Urine Microscopic WBC (0-5) /HPF Ur Epithelial Cells (None Seen) /HPF Urine Bacteria (None Seen) /HPF Urine Culture Reflexed (NO) Urine Opiates Level (NEGATIVE) Ur Methadone (NEGATIVE) Urine Barbiturates (NEGATIVE) Ur Phencyclidine (PCP) (NEGATIVE) Urine Amphetamine (NEGATIVE) U Benzodiazepine Level (NEGATIVE) Urine Cocaine (NEGATIVE) Urine Marijuana (THC) (NEGATIVE) Ethyl Alcohol (0-10) mg/dL Influenza Type A Ag NEGATIVE (NEGATIVE) Influenza Type B Ag NEGATIVE (NEGATIVE) RSV (PCR) NEGATIVE (NEGATIVE) SARS-CoV-2 (PCR) NEGATIVE (NEGATIVE) 04/08/24 Range/Units 20:40 WBC (4.23-9.07) x10^3/uL RBC (4.63-6.08) x10^6/uL Hgb (13.7-17.5) g/dL Hct (40.1-51.0) % MCV (79.0-92.2) fL MCH (25.7-32.2) pg MCHC (32.3-36.5) g/dL RDW (11.6-14.4) % Plt Count (163-337) x10^3/uL MPV (9.4-12.4) fL Segmented Neutrophils (1.78-5.38) % Lymphocytes (Manual) (24-44) % Monocytes (Manual) (0.0-12.0) % Eosinophils (Manual) (0.00-3.0) % Platelet Estimate (NORMAL) RBC Morphology Sodium (135-145) mmol/L Potassium (3.5-5.1) mmol/L Chloride (98-107) mmol/L Carbon Dioxide (22-30) mmol/L Anion Gap (5-15) MEQ/L BUN (9-20) mg/dL Creatinine (0.66-1.25) mg/dL Estimated GFR ML/MIN Glucose (74-106) mg/dL POC Glucometer 210 H (50 to 500) mg/dL Lactic Acid (0.4-2.0) Calcium (8.4-10.2) mg/dL Magnesium (1.6-2.3) mg/dL Total Bilirubin (0.2-1.3) mg/dL AST (17-59) U/L ALT (0-50) U/L Alkaline Phosphatase (38-126) U/L Ammonia (9-30) umol/L Serum Total Protein (6.3-8.2) g/dL Albumin (3.5-5.0) g/dL Urine Color (Yellow) Urine Appearance (Clear) Urine pH (4.6-8.0) Ur Specific [place] (1.005-1.030) Urine Protein (Negative) Urine Glucose (UA) (Negative) mg/dL Urine Ketones (Negative) Urine Blood (Negative) Urine Nitrite (Negative) Urine Bilirubin (Negative) Urine Urobilinogen (0.2) mg/dL Ur Leukocyte Esterase (Negative) U Hyaline Cast (Auto) (0-2) /LPF Urine Microscopic RBC (0-5) /HPF Urine Microscopic WBC (0-5) /HPF Ur Epithelial Cells (None Seen) /HPF Urine Bacteria (None Seen) /HPF Urine Culture Reflexed (NO) Urine Opiates Level (NEGATIVE) Ur Methadone (NEGATIVE) Urine Barbiturates (NEGATIVE) Ur Phencyclidine (PCP) (NEGATIVE) Urine Amphetamine (NEGATIVE) U Benzodiazepine Level (NEGATIVE) Urine Cocaine (NEGATIVE) Urine Marijuana (THC) (NEGATIVE) Ethyl Alcohol (0-10) mg/dL Influenza Type A Ag (NEGATIVE) Influenza Type B Ag (NEGATIVE) RSV (PCR) (NEGATIVE) SARS-CoV-2 (PCR) (NEGATIVE) Accuchecks Date 04/08/24 Time 16:29 - Radiology Impressions Radiology Exams & Impressions: Radiology Procedures Category Date Time Status CHEST 1 VIEW (PORTABLE) Stat Exams 04/08/24 18:08 Completed HEAD WITHOUT CONTRAST [CT] Stat Exams 04/08/24 16:13 Completed Assessment/Plan (1) Hypoglycemia Current Visit: Yes Status: Acute Assessment & Plan: Likely from insulin intake in setting of underlying infection 1. Admit to hospital 2. D10 IVFs to maintain blood sugars 3. Hold Lantus and use insulin sliding scale 4. FSBS q2 until sugars stabilized, then qAC/HS Code(s): E16.2 - HYPOGLYCEMIA, UNSPECIFIED (2) Fever Current Visit: Yes Status: Acute Assessment & Plan: Unclear etiology, u/a and cxr appear normal, WBC normal, ? foot infection 1. Follow up cultures 2. Will continue empiric Levaquin 3. Trend temps Code(s): R50.9 - FEVER, UNSPECIFIED (3) SYED (acute kidney injury) Current Visit: No Status: Acute Assessment & Plan: Likely from prerenal azotemia in setting of TORITO 1. IVFs 2. Avoid NSAIDs 3. Check urine lytes, urine creatinine 4. Follow I/Os 5. Watch electrolytes, creatinine closely Code(s): N17.9 - ACUTE KIDNEY FAILURE, UNSPECIFIED (4) Hypertension Current Visit: No Status: Acute Qualifiers: Hypertension type: primary hypertension Qualified Code(s): I10 - Essential (primary) hypertension Assessment & Plan: Blood pressure under suboptimal control 1. Continue bp meds 2. Low Na diet 3. Monitor blood pressure readings Code(s): I10 - ESSENTIAL (PRIMARY) HYPERTENSION Telemedicine Encounter - Telemedicine Encounter Telemedicine Encounter: The entirety of this encounter was performed via Telemedicine"
[2024-04-08 22:45] LABS: CREATININE,URINE RANDOM 106.7 MG/DL
[2024-04-09] MEDS: Dextrose 5%-Lr IV Solution 1000 ML 1,000 ML IV SCH (08:48)
[2024-04-09] MEDS: Dextrose 5% -0.45 NaCl 1000 ML 1,000 ML IV SCH (08:49)
[2024-04-09] MEDS: NORVASC 5 MG PO SCH (08:59)
[2024-04-09] MEDS: Zestril 10 MG PO SCH (08:59)
[2024-04-09] MEDS: Acidophilus TABLET PO SCH (08:59)
[2024-04-09] MEDS: Protonix 40MG Tablet PO SCH (08:59)
[2024-04-09] MEDS: THERAGRAN MULTIVITAMIN PO SCH (09:00)
[2024-04-09] MEDS: ENOXAPARIN SODIUM SQ SCH (09:02)
[2024-04-09 09:24] LABS: Absolute Neutrophil Ct (ANC) 3.89 x10^3/uL (1.78-5.38); BASOPHIL % 0.8 % (0.2-1.2); Basophil (Absolute #) 0.05 x10^3/uL (0.01-0.08); Eosinophil % 3.3 % (0.8-7.0); Eosinophil (Absolute #) 0.21 x10^3/uL (0.04-0.54); Hematocrit 28.7 % (40.1-51.0); Hemoglobin 9.6 g/dL (13.7-17.5); IMMATURE GRAN # 0.01 x10^3u/L (0.001-0.031); IMMATURE GRAN % 0.2 % (0.001-0.429); Lymphocyte (Absolute #) 1.75 x10^3/uL (1.32-3.57); Lymphocytes % 27.2 % (21.8-53.1); Mean Cell Volume 88.3 fL (79.0-92.2); Mean Corpuscular Hemoglobin 29.5 pg (25.7-32.2); Mean Corpuscular Hgb Concent. 33.4 g/dL (32.3-36.5); Mean Platelet Volume 11.2 fL (9.4-12.4); Monocyte (Absolute #) 0.53 x10^3/uL (0.30-0.82); Monocytes % 8.2 % (5.3-12.2); Neutrophil % 60.3 % (34.0-67.9); Platelet Count 164 x10^3/uL (163-337); Red Blood Count 3.25 x10^6/uL (4.63-6.08); Red Cell Distribution Width 13.3 % (11.6-14.4); White Blood Count 6.4 x10^3/uL (4.23-9.07)
[2024-04-09 09:37] LABS: ALBUMIN 3.5 g/dL (3.5-5.0); ANION GAP 10.3 MEQ/L (5-15); BILIRUBIN,TOTAL 0.7 mg/dL (0.2-1.3); Calcium 9.4 mg/dL (8.4-10.2); Creatinine 1 1.1 mg/dL (0.66-1.25); Total Protein 5.9 g/dL (6.3-8.2)
--- NOTE | 2024-04-09 10:23 | PCM.NOTE ---
Date and Time: 04/09/24 1010 Subjective Assessment: 04/09/24 Mr. BISHOP is a 63 year old male with a past medical history significant for hypertension, diabetes with previous episodes/hospitalizations for DKA and hyperlipidemia. He was just discharged from [facility] 2 days ago for hypoglycemia. On 04/08/24 he was brought to the ER after passing out at a store while riding an electric cart. Upon arrival, he was found to have low blood sugars in the 30s-40s despite several amps of D50. His initial labs were notable for an elevated creatinine of 1.5, and was started on IVFs. He initially had a low grade temp that increased up to 102, so he was started on Levaquin and cultures sent. Family reported that he gave himself his usual dose of Lantus in the morning, did eat two meals and was giving himself Humalog throughout the day. After speaking with the pt this AM he reports he does not eat well and does not feel like eating. He reports not loosing any weight recenlty. In fact he did not want to eat breakfast this morning. Encouraged pt to tray and eat several small meals throughout the day to keep glucose level up. Lantus is being held. 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 Podiatry was consulted in ER by physician has he has a small dried scab on interior aspect of top of right big toe. It has no erythema, edema, or pain. 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 His PCP Dr. Wells came in to see pt today and asked that antibiotic be changed to Merrem as he has had episodes of hyperglycemia and hypoglycemia with Levaquin in the past. He also wanted blood sugars checked more often, he already is having them checked Q2 hours and will leave it at this. He also requested that IVF be restarted- NS started at 50ml/hr. Discussed with Dr. Munoz and he is agreeable to this plan of care. Pt denies any other source of infection. He has no pain. CXR and head CT negative for acute concern. Will recheck labs this afternoon. UC and BC x2 pending. He denies CP, SOB, abd. pain, N/V/D. - Review of Systems Constitutional: No Fever, No Chills Eyes: No Symptoms Ears, Nose, & Throat: No Symptoms Respiratory: No Cough, No Short Of Breath Cardiac: No Chest Pain, No Edema, No Syncope Abdominal/Gastrointestinal: No Abdominal Pain, No Nausea, No Vomiting, No Diarrhea Genitourinary Symptoms: No Dysuria Musculoskeletal: No Back Pain, No Neck Pain Skin: Skin Lesions (small dried scab on interior aspect of top of right big toe), No Rash Neurological: Irritability, No Dizziness, No Focal Weakness, No Sensory Changes Psychological: No Symptoms Endocrine: No Symptoms Hematologic/Lymphatic: No Symptoms Immunological/Allergic: No Symptoms Objective Exam General Appearance: no apparent distress, alert Neurologic Exam: alert, oriented x 3, nml cerebellar function, sensation nml, agitation, No motor deficits Skin Exam: normal color, warm, dry, other (small dried scab on interior aspect of top of right big toe) Eye Exam: PERRL, EOMI, eyes nml inspection Ears, Nose, Throat Exam: normal ENT inspection, pharynx normal, moist mucous membranes Neck Exam: normal inspection, non-tender, supple, full range of motion Respiratory Exam: normal breath sounds, lungs clear, No respiratory distress Cardiovascular Exam: regular rate/rhythm, normal heart sounds Gastrointestinal/Abdomen Exam: soft, No tenderness, No mass Extremity Exam: normal inspection, normal range of motion Back Exam: normal inspection, normal range of motion, No CVA tenderness, No vertebral tenderness Male Genitalia Exam: deferred Rectal Exam: deferred Objective Data Vital Signs: Vital Signs - 24 hr Temp Pulse Resp BP BP Pulse Ox 04/09/24 07:34 97.5 F 73 16 138/84 98 04/09/24 04:00 98.9 F 73 18 135/71 97 04/09/24 00:00 100.1 F 04/08/24 21:46 102.1 F 94 H 16 163/74 97 04/08/24 20:45 102.0 F 04/08/24 20:30 100 H 21 171/126 97 04/08/24 20:15 100 H 18 177/80 97 04/08/24 20:00 102 H 19 185/79 97 04/08/24 19:45 104 H 21 177/90 97 04/08/24 19:30 105 H 18 169/81 97 04/08/24 19:15 110 H 18 183/84 97 04/08/24 19:00 156/107 04/08/24 18:46 161/93 04/08/24 18:30 100 H 185/90 98 04/08/24 18:15 102 H 166/89 97 04/08/24 18:07 154/90 97 04/08/24 18:04 100 04/08/24 18:02 76/39 97 04/08/24 17:45 168/82 97 04/08/24 17:30 171/79 98 04/08/24 17:15 81 18 161/80 04/08/24 17:08 79 17 149/76 04/08/24 16:33 98 04/08/24 16:18 96 04/08/24 16:06 99.0 F 76 20 111/59 95 Pain Assessment - Last Documented Pain Intensity 0 Intake and Output: Intake & Output 04/06/24 04/07/24 04/08/24 04/09/24 11:59 11:59 11:59 11:59 Intake Total 380 Balance 380 Weight 77.9 kg Lab Results: Lab Results-Last 24 Hours 04/08/24 04/08/24 04/08/24 Range/Units 16:30 16:30 16:30 WBC 7.4 (4.23-9.07) x10^3/uL RBC 3.44 L (4.63-6.08) x10^6/uL Hgb 10.1 L (13.7-17.5) g/dL Hct 30.2 L (40.1-51.0) % MCV 87.8 (79.0-92.2) fL MCH 29.4 (25.7-32.2) pg MCHC 33.4 (32.3-36.5) g/dL RDW 13.4 (11.6-14.4) % Plt Count 202 (163-337) x10^3/uL MPV 11.2 (9.4-12.4) fL Gran % (34.0-67.9) % Immature Gran % (Auto) (0.001-0.429) % Nucleat RBC Rel Count (0.00-0.2) % Eos # (Auto) (0.04-0.54) x10^3/uL Immature Gran # (Auto) (0.001-0.031) x10^3u/L Absolute Lymphs (auto) (1.32-3.57) x10^3/uL Absolute Monos (auto) (0.30-0.82) x10^3/uL Absolute Nucleated RBC (0.00-0.012) x10^3u/L Lymphocytes % (21.8-53.1) % Monocytes % (5.3-12.2) % Eosinophils % (0.8-7.0) % Basophils % (0.2-1.2) % Absolute Granulocytes (1.78-5.38) x10^3/uL Segmented Neutrophils 62 H (1.78-5.38) % Lymphocytes (Manual) 30 (24-44) % Monocytes (Manual) 6 (0.0-12.0) % Eosinophils (Manual) 2 (0.00-3.0) % Basophils # (0.01-0.08) x10^3/uL Platelet Estimate NORMAL (NORMAL) RBC Morphology NORMAL Sodium 139 (135-145) mmol/L Potassium 3.7 (3.5-5.1) mmol/L Chloride 108 H (98-107) mmol/L Carbon Dioxide 23 (22-30) mmol/L Anion Gap 12.1 (5-15) MEQ/L BUN 25 H (9-20) mg/dL Creatinine 1.46 H (0.66-1.25) mg/dL Estimated GFR 53.4 ML/MIN Glucose 106 (74-106) mg/dL POC Glucometer (50 to 500) mg/dL Lactic Acid (0.4-2.0) Calcium 10.0 (8.4-10.2) mg/dL Magnesium 1.9 (1.6-2.3) mg/dL Total Bilirubin 0.70 (0.2-1.3) mg/dL AST 20 (17-59) U/L ALT 17 (0-50) U/L Alkaline Phosphatase 66 (38-126) U/L Ammonia (9-30) umol/L Serum Total Protein 6.5 (6.3-8.2) g/dL Albumin 3.9 (3.5-5.0) g/dL Urine Color (Yellow) Urine Appearance (Clear) Urine pH (4.6-8.0) Ur Specific [place] (1.005-1.030) Urine Protein (Negative) Urine Glucose (UA) (Negative) mg/dL Urine Ketones (Negative) Urine Blood (Negative) Urine Nitrite (Negative) Urine Bilirubin (Negative) Urine Urobilinogen (0.2) mg/dL Ur Leukocyte Esterase (Negative) U Hyaline Cast (Auto) (0-2) /LPF Urine Microscopic RBC (0-5) /HPF Urine Microscopic WBC (0-5) /HPF Ur Epithelial Cells (None Seen) /HPF Urine Bacteria (None Seen) /HPF Urine Culture Reflexed (NO) Ur Random Creatinine MG/DL U Random Total Protein (0-12) mg/dL Urine Sodium (30-90) mmol/L Urine Opiates Level (NEGATIVE) Ur Methadone (NEGATIVE) Urine Barbiturates (NEGATIVE) Ur Phencyclidine (PCP) (NEGATIVE) Urine Amphetamine (NEGATIVE) U Benzodiazepine Level (NEGATIVE) Urine Cocaine (NEGATIVE) Urine Marijuana (THC) (NEGATIVE) Ethyl Alcohol < 10 (0-10) mg/dL Influenza Type A Ag (NEGATIVE) Influenza Type B Ag (NEGATIVE) RSV (PCR) (NEGATIVE) SARS-CoV-2 (PCR) (NEGATIVE) 04/08/24 04/08/24 04/08/24 Range/Units 16:30 16:34 17:31 WBC (4.23-9.07) x10^3/uL RBC (4.63-6.08) x10^6/uL Hgb (13.7-17.5) g/dL Hct (40.1-51.0) % MCV (79.0-92.2) fL MCH (25.7-32.2) pg MCHC (32.3-36.5) g/dL RDW (11.6-14.4) % Plt Count (163-337) x10^3/uL MPV (9.4-12.4) fL Gran % (34.0-67.9) % Immature Gran % (Auto) (0.001-0.429) % Nucleat RBC Rel Count (0.00-0.2) % Eos # (Auto) (0.04-0.54) x10^3/uL Immature Gran # (Auto) (0.001-0.031) x10^3u/L Absolute Lymphs (auto) (1.32-3.57) x10^3/uL Absolute Monos (auto) (0.30-0.82) x10^3/uL Absolute Nucleated RBC (0.00-0.012) x10^3u/L Lymphocytes % (21.8-53.1) % Monocytes % (5.3-12.2) % Eosinophils % (0.8-7.0) % Basophils % (0.2-1.2) % Absolute Granulocytes (1.78-5.38) x10^3/uL Segmented Neutrophils (1.78-5.38) % Lymphocytes (Manual) (24-44) % Monocytes (Manual) (0.0-12.0) % Eosinophils (Manual) (0.00-3.0) % Basophils # (0.01-0.08) x10^3/uL Platelet Estimate (NORMAL) RBC Morphology Sodium (135-145) mmol/L Potassium (3.5-5.1) mmol/L Chloride (98-107) mmol/L Carbon Dioxide (22-30) mmol/L Anion Gap (5-15) MEQ/L BUN (9-20) mg/dL Creatinine (0.66-1.25) mg/dL Estimated GFR ML/MIN Glucose (74-106) mg/dL POC Glucometer 28 L* (50 to 500) mg/dL Lactic Acid 2.1 H (0.4-2.0) Calcium (8.4-10.2) mg/dL Magnesium (1.6-2.3) mg/dL Total Bilirubin (0.2-1.3) mg/dL AST (17-59) U/L ALT (0-50) U/L Alkaline Phosphatase (38-126) U/L Ammonia < 9 L (9-30) umol/L Serum Total Protein (6.3-8.2) g/dL Albumin (3.5-5.0) g/dL Urine Color (Yellow) Urine Appearance (Clear) Urine pH (4.6-8.0) Ur Specific [place] (1.005-1.030) Urine Protein (Negative) Urine Glucose (UA) (Negative) mg/dL Urine Ketones (Negative) Urine Blood (Negative) Urine Nitrite (Negative) Urine Bilirubin (Negative) Urine Urobilinogen (0.2) mg/dL Ur Leukocyte Esterase (Negative) U Hyaline Cast (Auto) (0-2) /LPF Urine Microscopic RBC (0-5) /HPF Urine Microscopic WBC (0-5) /HPF Ur Epithelial Cells (None Seen) /HPF Urine Bacteria (None Seen) /HPF Urine Culture Reflexed (NO) Ur Random Creatinine MG/DL U Random Total Protein (0-12) mg/dL Urine Sodium (30-90) mmol/L Urine Opiates Level (NEGATIVE) Ur Methadone (NEGATIVE) Urine Barbiturates (NEGATIVE) Ur Phencyclidine (PCP) (NEGATIVE) Urine Amphetamine (NEGATIVE) U Benzodiazepine Level (NEGATIVE) Urine Cocaine (NEGATIVE) Urine Marijuana (THC) (NEGATIVE) Ethyl Alcohol (0-10) mg/dL Influenza Type A Ag (NEGATIVE) Influenza Type B Ag (NEGATIVE) RSV (PCR) (NEGATIVE) SARS-CoV-2 (PCR) (NEGATIVE) 04/08/24 04/08/24 04/08/24 Range/Units 18:15 18:15 18:15 WBC (4.23-9.07) x10^3/uL RBC (4.63-6.08) x10^6/uL Hgb (13.7-17.5) g/dL Hct (40.1-51.0) % MCV (79.0-92.2) fL MCH (25.7-32.2) pg MCHC (32.3-36.5) g/dL RDW (11.6-14.4) % Plt Count (163-337) x10^3/uL MPV (9.4-12.4) fL Gran % (34.0-67.9) % Immature Gran % (Auto) (0.001-0.429) % Nucleat RBC Rel Count (0.00-0.2) % Eos # (Auto) (0.04-0.54) x10^3/uL Immature Gran # (Auto) (0.001-0.031) x10^3u/L Absolute Lymphs (auto) (1.32-3.57) x10^3/uL Absolute Monos (auto) (0.30-0.82) x10^3/uL Absolute Nucleated RBC (0.00-0.012) x10^3u/L Lymphocytes % (21.8-53.1) % Monocytes % (5.3-12.2) % Eosinophils % (0.8-7.0) % Basophils % (0.2-1.2) % Absolute Granulocytes (1.78-5.38) x10^3/uL Segmented Neutrophils (1.78-5.38) % Lymphocytes (Manual) (24-44) % Monocytes (Manual) (0.0-12.0) % Eosinophils (Manual) (0.00-3.0) % Basophils # (0.01-0.08) x10^3/uL Platelet Estimate (NORMAL) RBC Morphology Sodium (135-145) mmol/L Potassium (3.5-5.1) mmol/L Chloride (98-107) mmol/L Carbon Dioxide (22-30) mmol/L Anion Gap (5-15) MEQ/L BUN (9-20) mg/dL Creatinine (0.66-1.25) mg/dL Estimated GFR ML/MIN Glucose (74-106) mg/dL POC Glucometer (50 to 500) mg/dL Lactic Acid (0.4-2.0) Calcium (8.4-10.2) mg/dL Magnesium (1.6-2.3) mg/dL Total Bilirubin (0.2-1.3) mg/dL AST (17-59) U/L ALT (0-50) U/L Alkaline Phosphatase (38-126) U/L Ammonia (9-30) umol/L Serum Total Protein (6.3-8.2) g/dL Albumin (3.5-5.0) g/dL Urine Color Yellow (Yellow) Urine Appearance Clear (Clear) Urine pH 5.5 (4.6-8.0) Ur Specific [place] 1.015 (1.005-1.030) Urine Protein 30 (Negative) Urine Glucose (UA) >=1000 A (Negative) mg/dL Urine Ketones Negative (Negative) Urine Blood Negative (Negative) Urine Nitrite Negative (Negative) Urine Bilirubin Negative (Negative) Urine Urobilinogen 0.2 (0.2) mg/dL Ur Leukocyte Esterase Negative (Negative) U Hyaline Cast (Auto) 3-5 A (0-2) /LPF Urine Microscopic RBC 0-2 (0-5) /HPF Urine Microscopic WBC 0-2 (0-5) /HPF Ur Epithelial Cells None Seen (None Seen) /HPF Urine Bacteria None Seen (None Seen) /HPF Urine Culture Reflexed ORDERED SEPARATELY (NO) Ur Random Creatinine 106.7 MG/DL U Random Total Protein 50 H (0-12) mg/dL Urine Sodium 98 H (30-90) mmol/L Urine Opiates Level NEGATIVE (NEGATIVE) Ur Methadone NEGATIVE (NEGATIVE) Urine Barbiturates NEGATIVE (NEGATIVE) Ur Phencyclidine (PCP) NEGATIVE (NEGATIVE) Urine Amphetamine NEGATIVE (NEGATIVE) U Benzodiazepine Level NEGATIVE (NEGATIVE) Urine Cocaine NEGATIVE (NEGATIVE) Urine Marijuana (THC) NEGATIVE (NEGATIVE) Ethyl Alcohol (0-10) mg/dL Influenza Type A Ag (NEGATIVE) Influenza Type B Ag (NEGATIVE) RSV (PCR) (NEGATIVE) SARS-CoV-2 (PCR) (NEGATIVE) 04/08/24 04/08/24 04/08/24 Range/Units 18:36 18:36 19:23 WBC (4.23-9.07) x10^3/uL RBC (4.63-6.08) x10^6/uL Hgb (13.7-17.5) g/dL Hct (40.1-51.0) % MCV (79.0-92.2) fL MCH (25.7-32.2) pg MCHC (32.3-36.5) g/dL RDW (11.6-14.4) % Plt Count (163-337) x10^3/uL MPV (9.4-12.4) fL Gran % (34.0-67.9) % Immature Gran % (Auto) (0.001-0.429) % Nucleat RBC Rel Count (0.00-0.2) % Eos # (Auto) (0.04-0.54) x10^3/uL Immature Gran # (Auto) (0.001-0.031) x10^3u/L Absolute Lymphs (auto) (1.32-3.57) x10^3/uL Absolute Monos (auto) (0.30-0.82) x10^3/uL Absolute Nucleated RBC (0.00-0.012) x10^3u/L Lymphocytes % (21.8-53.1) % Monocytes % (5.3-12.2) % Eosinophils % (0.8-7.0) % Basophils % (0.2-1.2) % Absolute Granulocytes (1.78-5.38) x10^3/uL Segmented Neutrophils (1.78-5.38) % Lymphocytes (Manual) (24-44) % Monocytes (Manual) (0.0-12.0) % Eosinophils (Manual) (0.00-3.0) % Basophils # (0.01-0.08) x10^3/uL Platelet Estimate (NORMAL) RBC Morphology Sodium (135-145) mmol/L Potassium (3.5-5.1) mmol/L Chloride (98-107) mmol/L Carbon Dioxide (22-30) mmol/L Anion Gap (5-15) MEQ/L BUN (9-20) mg/dL Creatinine (0.66-1.25) mg/dL Estimated GFR ML/MIN Glucose (74-106) mg/dL POC Glucometer 38 L* 143 H (50 to 500) mg/dL Lactic Acid 1.5 (0.4-2.0) Calcium (8.4-10.2) mg/dL Magnesium (1.6-2.3) mg/dL Total Bilirubin (0.2-1.3) mg/dL AST (17-59) U/L ALT (0-50) U/L Alkaline Phosphatase (38-126) U/L Ammonia (9-30) umol/L Serum Total Protein (6.3-8.2) g/dL Albumin (3.5-5.0) g/dL Urine Color (Yellow) Urine Appearance (Clear) Urine pH (4.6-8.0) Ur Specific [place] (1.005-1.030) Urine Protein (Negative) Urine Glucose (UA) (Negative) mg/dL Urine Ketones (Negative) Urine Blood (Negative) Urine Nitrite (Negative) Urine Bilirubin (Negative) Urine Urobilinogen (0.2) mg/dL Ur Leukocyte Esterase (Negative) U Hyaline Cast (Auto) (0-2) /LPF Urine Microscopic RBC (0-5) /HPF Urine Microscopic WBC (0-5) /HPF Ur Epithelial Cells (None Seen) /HPF Urine Bacteria (None Seen) /HPF Urine Culture Reflexed (NO) Ur Random Creatinine MG/DL U Random Total Protein (0-12) mg/dL Urine Sodium (30-90) mmol/L Urine Opiates Level (NEGATIVE) Ur Methadone (NEGATIVE) Urine Barbiturates (NEGATIVE) Ur Phencyclidine (PCP) (NEGATIVE) Urine Amphetamine (NEGATIVE) U Benzodiazepine Level (NEGATIVE) Urine Cocaine (NEGATIVE) Urine Marijuana (THC) (NEGATIVE) Ethyl Alcohol (0-10) mg/dL Influenza Type A Ag (NEGATIVE) Influenza Type B Ag (NEGATIVE) RSV (PCR) (NEGATIVE) SARS-CoV-2 (PCR) (NEGATIVE) 04/08/24 04/08/24 04/08/24 Range/Units 19:55 20:40 22:03 WBC (4.23-9.07) x10^3/uL RBC (4.63-6.08) x10^6/uL Hgb (13.7-17.5) g/dL Hct (40.1-51.0) % MCV (79.0-92.2) fL MCH (25.7-32.2) pg MCHC (32.3-36.5) g/dL RDW (11.6-14.4) % Plt Count (163-337) x10^3/uL MPV (9.4-12.4) fL Gran % (34.0-67.9) % Immature Gran % (Auto) (0.001-0.429) % Nucleat RBC Rel Count (0.00-0.2) % Eos # (Auto) (0.04-0.54) x10^3/uL Immature Gran # (Auto) (0.001-0.031) x10^3u/L Absolute Lymphs (auto) (1.32-3.57) x10^3/uL Absolute Monos (auto) (0.30-0.82) x10^3/uL Absolute Nucleated RBC (0.00-0.012) x10^3u/L Lymphocytes % (21.8-53.1) % Monocytes % (5.3-12.2) % Eosinophils % (0.8-7.0) % Basophils % (0.2-1.2) % Absolute Granulocytes (1.78-5.38) x10^3/uL Segmented Neutrophils (1.78-5.38) % Lymphocytes (Manual) (24-44) % Monocytes (Manual) (0.0-12.0) % Eosinophils (Manual) (0.00-3.0) % Basophils # (0.01-0.08) x10^3/uL Platelet Estimate (NORMAL) RBC Morphology Sodium (135-145) mmol/L Potassium (3.5-5.1) mmol/L Chloride (98-107) mmol/L Carbon Dioxide (22-30) mmol/L Anion Gap (5-15) MEQ/L BUN (9-20) mg/dL Creatinine (0.66-1.25) mg/dL Estimated GFR ML/MIN Glucose (74-106) mg/dL POC Glucometer 210 H 223 H (50 to 500) mg/dL Lactic Acid (0.4-2.0) Calcium (8.4-10.2) mg/dL Magnesium (1.6-2.3) mg/dL Total Bilirubin (0.2-1.3) mg/dL AST (17-59) U/L ALT (0-50) U/L Alkaline Phosphatase (38-126) U/L Ammonia (9-30) umol/L Serum Total Protein (6.3-8.2) g/dL Albumin (3.5-5.0) g/dL Urine Color (Yellow) Urine Appearance (Clear) Urine pH (4.6-8.0) Ur Specific [place] (1.005-1.030) Urine Protein (Negative) Urine Glucose (UA) (Negative) mg/dL Urine Ketones (Negative) Urine Blood (Negative) Urine Nitrite (Negative) Urine Bilirubin (Negative) Urine Urobilinogen (0.2) mg/dL Ur Leukocyte Esterase (Negative) U Hyaline Cast (Auto) (0-2) /LPF Urine Microscopic RBC (0-5) /HPF Urine Microscopic WBC (0-5) /HPF Ur Epithelial Cells (None Seen) /HPF Urine Bacteria (None Seen) /HPF Urine Culture Reflexed (NO) Ur Random Creatinine MG/DL U Random Total Protein (0-12) mg/dL Urine Sodium (30-90) mmol/L Urine Opiates Level (NEGATIVE) Ur Methadone (NEGATIVE) Urine Barbiturates (NEGATIVE) Ur Phencyclidine (PCP) (NEGATIVE) Urine Amphetamine (NEGATIVE) U Benzodiazepine Level (NEGATIVE) Urine Cocaine (NEGATIVE) Urine Marijuana (THC) (NEGATIVE) Ethyl Alcohol (0-10) mg/dL Influenza Type A Ag NEGATIVE (NEGATIVE) Influenza Type B Ag NEGATIVE (NEGATIVE) RSV (PCR) NEGATIVE (NEGATIVE) SARS-CoV-2 (PCR) NEGATIVE (NEGATIVE) 04/09/24 04/09/24 04/09/24 Range/Units 00:07 03:48 05:49 WBC (4.23-9.07) x10^3/uL RBC (4.63-6.08) x10^6/uL Hgb (13.7-17.5) g/dL Hct (40.1-51.0) % MCV (79.0-92.2) fL MCH (25.7-32.2) pg MCHC (32.3-36.5) g/dL RDW (11.6-14.4) % Plt Count (163-337) x10^3/uL MPV (9.4-12.4) fL Gran % (34.0-67.9) % Immature Gran % (Auto) (0.001-0.429) % Nucleat RBC Rel Count (0.00-0.2) % Eos # (Auto) (0.04-0.54) x10^3/uL Immature Gran # (Auto) (0.001-0.031) x10^3u/L Absolute Lymphs (auto) (1.32-3.57) x10^3/uL Absolute Monos (auto) (0.30-0.82) x10^3/uL Absolute Nucleated RBC (0.00-0.012) x10^3u/L Lymphocytes % (21.8-53.1) % Monocytes % (5.3-12.2) % Eosinophils % (0.8-7.0) % Basophils % (0.2-1.2) % Absolute Granulocytes (1.78-5.38) x10^3/uL Segmented Neutrophils (1.78-5.38) % Lymphocytes (Manual) (24-44) % Monocytes (Manual) (0.0-12.0) % Eosinophils (Manual) (0.00-3.0) % Basophils # (0.01-0.08) x10^3/uL Platelet Estimate (NORMAL) RBC Morphology Sodium (135-145) mmol/L Potassium (3.5-5.1) mmol/L Chloride (98-107) mmol/L Carbon Dioxide (22-30) mmol/L Anion Gap (5-15) MEQ/L BUN (9-20) mg/dL Creatinine (0.66-1.25) mg/dL Estimated GFR ML/MIN Glucose (74-106) mg/dL POC Glucometer 241 H 166 H 137 H (50 to 500) mg/dL Lactic Acid (0.4-2.0) Calcium (8.4-10.2) mg/dL Magnesium (1.6-2.3) mg/dL Total Bilirubin (0.2-1.3) mg/dL AST (17-59) U/L ALT (0-50) U/L Alkaline Phosphatase (38-126) U/L Ammonia (9-30) umol/L Serum Total Protein (6.3-8.2) g/dL Albumin (3.5-5.0) g/dL Urine Color (Yellow) Urine Appearance (Clear) Urine pH (4.6-8.0) Ur Specific [place] (1.005-1.030) Urine Protein (Negative) Urine Glucose (UA) (Negative) mg/dL Urine Ketones (Negative) Urine Blood (Negative) Urine Nitrite (Negative) Urine Bilirubin (Negative) Urine Urobilinogen (0.2) mg/dL Ur Leukocyte Esterase (Negative) U Hyaline Cast (Auto) (0-2) /LPF Urine Microscopic RBC (0-5) /HPF Urine Microscopic WBC (0-5) /HPF Ur Epithelial Cells (None Seen) /HPF Urine Bacteria (None Seen) /HPF Urine Culture Reflexed (NO) Ur Random Creatinine MG/DL U Random Total Protein (0-12) mg/dL Urine Sodium (30-90) mmol/L Urine Opiates Level (NEGATIVE) Ur Methadone (NEGATIVE) Urine Barbiturates (NEGATIVE) Ur Phencyclidine (PCP) (NEGATIVE) Urine Amphetamine (NEGATIVE) U Benzodiazepine Level (NEGATIVE) Urine Cocaine (NEGATIVE) Urine Marijuana (THC) (NEGATIVE) Ethyl Alcohol (0-10) mg/dL Influenza Type A Ag (NEGATIVE) Influenza Type B Ag (NEGATIVE) RSV (PCR) (NEGATIVE) SARS-CoV-2 (PCR) (NEGATIVE) 04/09/24 04/09/24 04/09/24 Range/Units 07:44 09:15 09:15 WBC 6.4 (4.23-9.07) x10^3/uL RBC 3.25 L (4.63-6.08) x10^6/uL Hgb 9.6 L (13.7-17.5) g/dL Hct 28.7 L (40.1-51.0) % MCV 88.3 (79.0-92.2) fL MCH 29.5 (25.7-32.2) pg MCHC 33.4 (32.3-36.5) g/dL RDW 13.3 (11.6-14.4) % Plt Count 164 (163-337) x10^3/uL MPV 11.2 (9.4-12.4) fL Gran % 60.3 (34.0-67.9) % Immature Gran % (Auto) 0.2 (0.001-0.429) % Nucleat RBC Rel Count 0.0 (0.00-0.2) % Eos # (Auto) 0.21 (0.04-0.54) x10^3/uL Immature Gran # (Auto) 0.01 (0.001-0.031) x10^3u/L Absolute Lymphs (auto) 1.75 (1.32-3.57) x10^3/uL Absolute Monos (auto) 0.53 (0.30-0.82) x10^3/uL Absolute Nucleated RBC 0.00 (0.00-0.012) x10^3u/L Lymphocytes % 27.2 (21.8-53.1) % Monocytes % 8.2 (5.3-12.2) % Eosinophils % 3.3 (0.8-7.0) % Basophils % 0.8 (0.2-1.2) % Absolute Granulocytes 3.89 (1.78-5.38) x10^3/uL Segmented Neutrophils (1.78-5.38) % Lymphocytes (Manual) (24-44) % Monocytes (Manual) (0.0-12.0) % Eosinophils (Manual) (0.00-3.0) % Basophils # 0.05 (0.01-0.08) x10^3/uL Platelet Estimate (NORMAL) RBC Morphology Sodium 137 (135-145) mmol/L Potassium 4.0 (3.5-5.1) mmol/L Chloride 107 (98-107) mmol/L Carbon Dioxide 24 (22-30) mmol/L Anion Gap 10.3 (5-15) MEQ/L BUN 22 H (9-20) mg/dL Creatinine 1.10 (0.66-1.25) mg/dL Estimated GFR 75.0 ML/MIN Glucose 110 H (74-106) mg/dL POC Glucometer 108 H (50 to 500) mg/dL Lactic Acid (0.4-2.0) Calcium 9.4 (8.4-10.2) mg/dL Magnesium (1.6-2.3) mg/dL Total Bilirubin 0.70 (0.2-1.3) mg/dL AST 18 (17-59) U/L ALT 15 (0-50) U/L Alkaline Phosphatase 62 (38-126) U/L Ammonia (9-30) umol/L Serum Total Protein 5.9 L (6.3-8.2) g/dL Albumin 3.5 (3.5-5.0) g/dL Urine Color (Yellow) Urine Appearance (Clear) Urine pH (4.6-8.0) Ur Specific [place] (1.005-1.030) Urine Protein (Negative) Urine Glucose (UA) (Negative) mg/dL Urine Ketones (Negative) Urine Blood (Negative) Urine Nitrite (Negative) Urine Bilirubin (Negative) Urine Urobilinogen (0.2) mg/dL Ur Leukocyte Esterase (Negative) U Hyaline Cast (Auto) (0-2) /LPF Urine Microscopic RBC (0-5) /HPF Urine Microscopic WBC (0-5) /HPF Ur Epithelial Cells (None Seen) /HPF Urine Bacteria (None Seen) /HPF Urine Culture Reflexed (NO) Ur Random Creatinine MG/DL U Random Total Protein (0-12) mg/dL Urine Sodium (30-90) mmol/L Urine Opiates Level (NEGATIVE) Ur Methadone (NEGATIVE) Urine Barbiturates (NEGATIVE) Ur Phencyclidine (PCP) (NEGATIVE) Urine Amphetamine (NEGATIVE) U Benzodiazepine Level (NEGATIVE) Urine Cocaine (NEGATIVE) Urine Marijuana (THC) (NEGATIVE) Ethyl Alcohol (0-10) mg/dL Influenza Type A Ag (NEGATIVE) Influenza Type B Ag (NEGATIVE) RSV (PCR) (NEGATIVE) SARS-CoV-2 (PCR) (NEGATIVE) 04/09/24 Range/Units 09:25 WBC (4.23-9.07) x10^3/uL RBC (4.63-6.08) x10^6/uL Hgb (13.7-17.5) g/dL Hct (40.1-51.0) % MCV (79.0-92.2) fL MCH (25.7-32.2) pg MCHC (32.3-36.5) g/dL RDW (11.6-14.4) % Plt Count (163-337) x10^3/uL MPV (9.4-12.4) fL Gran % (34.0-67.9) % Immature Gran % (Auto) (0.001-0.429) % Nucleat RBC Rel Count (0.00-0.2) % Eos # (Auto) (0.04-0.54) x10^3/uL Immature Gran # (Auto) (0.001-0.031) x10^3u/L Absolute Lymphs (auto) (1.32-3.57) x10^3/uL Absolute Monos (auto) (0.30-0.82) x10^3/uL Absolute Nucleated RBC (0.00-0.012) x10^3u/L Lymphocytes % (21.8-53.1) % Monocytes % (5.3-12.2) % Eosinophils % (0.8-7.0) % Basophils % (0.2-1.2) % Absolute Granulocytes (1.78-5.38) x10^3/uL Segmented Neutrophils (1.78-5.38) % Lymphocytes (Manual) (24-44) % Monocytes (Manual) (0.0-12.0) % Eosinophils (Manual) (0.00-3.0) % Basophils # (0.01-0.08) x10^3/uL Platelet Estimate (NORMAL) RBC Morphology Sodium (135-145) mmol/L Potassium (3.5-5.1) mmol/L Chloride (98-107) mmol/L Carbon Dioxide (22-30) mmol/L Anion Gap (5-15) MEQ/L BUN (9-20) mg/dL Creatinine (0.66-1.25) mg/dL Estimated GFR ML/MIN Glucose (74-106) mg/dL POC Glucometer (50 to 500) mg/dL Lactic Acid 1.2 (0.4-2.0) Calcium (8.4-10.2) mg/dL Magnesium (1.6-2.3) mg/dL Total Bilirubin (0.2-1.3) mg/dL AST (17-59) U/L ALT (0-50) U/L Alkaline Phosphatase (38-126) U/L Ammonia (9-30) umol/L Serum Total Protein (6.3-8.2) g/dL Albumin (3.5-5.0) g/dL Urine Color (Yellow) Urine Appearance (Clear) Urine pH (4.6-8.0) Ur Specific [place] (1.005-1.030) Urine Protein (Negative) Urine Glucose (UA) (Negative) mg/dL Urine Ketones (Negative) Urine Blood (Negative) Urine Nitrite (Negative) Urine Bilirubin (Negative) Urine Urobilinogen (0.2) mg/dL Ur Leukocyte Esterase (Negative) U Hyaline Cast (Auto) (0-2) /LPF Urine Microscopic RBC (0-5) /HPF Urine Microscopic WBC (0-5) /HPF Ur Epithelial Cells (None Seen) /HPF Urine Bacteria (None Seen) /HPF Urine Culture Reflexed (NO) Ur Random Creatinine MG/DL U Random Total Protein (0-12) mg/dL Urine Sodium (30-90) mmol/L Urine Opiates Level (NEGATIVE) Ur Methadone (NEGATIVE) Urine Barbiturates (NEGATIVE) Ur Phencyclidine (PCP) (NEGATIVE) Urine Amphetamine (NEGATIVE) U Benzodiazepine Level (NEGATIVE) Urine Cocaine (NEGATIVE) Urine Marijuana (THC) (NEGATIVE) Ethyl Alcohol (0-10) mg/dL Influenza Type A Ag (NEGATIVE) Influenza Type B Ag (NEGATIVE) RSV (PCR) (NEGATIVE) SARS-CoV-2 (PCR) (NEGATIVE) Radiology Exams: Radiology Procedures Category Date Time Status CHEST 1 VIEW (PORTABLE) Stat Exams 04/08/24 18:08 Completed HEAD WITHOUT CONTRAST [CT] Stat Exams 04/08/24 16:13 Completed Assessment/Plan (1) Hypoglycemia Current Visit: Yes Status: Acute Assessment & Plan: - Per PCP pt is a brittle diabetic - Pt would benefit from dexcom OP as he reports he takes his insulin but does not check his blood sugars. - Has been admitted to several hospitals recently for same dx - Will need close OP f/u - Admits to not eating well and taking insulin - Will consult apprentice photographer. - Lantus held - Humalog S/S - accuchecks ac/hs and Q2 hr Code(s): E16.2 - HYPOGLYCEMIA, UNSPECIFIED (2) Uncontrolled type 2 diabetes mellitus Current Visit: No Status: Chronic Assessment & Plan: - A1C 04/02/24 9.69- uncontrolled - Accucehcks ac/hs and Q2 - Hold lantus - Humalog s/s. - see above hypoglycemia plan Code(s): E11.65 - TYPE 2 DIABETES MELLITUS WITH HYPERGLYCEMIA (3) Toe abrasion Current Visit: Yes Status: Acute Assessment & Plan: -small dried scab on interior aspect of top of right big toe - Podiatry consulted - XR BL feet per podiatry request - Levaquin stopped - Merrem IV Code(s): S90.416A - ABRASION, UNSPECIFIED LESSER TOE(S), INITIAL ENCOUNTER (4) Lactic acidosis due to diabetes mellitus Current Visit: Yes Status: Acute Assessment & Plan: - Lactic acid on admission 2.1- D5 LR gave in ER and then stopped - repeat LActic acid 1.5 and 1.2 this AM - NS @ 50 ml/hr Code(s): E11.10 - TYPE 2 DIABETES MELLITUS WITH KETOACIDOSIS WITHOUT COMA (5) Fever Current Visit: Yes Status: Resolved Assessment & Plan: - resolved this AM - IBP gave in ER - Fever of 102 last night - unknown source of infection - BC X2 and UC pending - will recheck labs this afternoon VTE: Lovenox PPI: Protonix Next of KIN: Spouse- Minal Bishop- [phone] D/C plan: 1-2 days Code status: Full Code(s): R50.9 - FEVER, UNSPECIFIED
[2024-04-09] MEDS: Sodium Chloride 0.9% 1000 ML 1,000 ML IV SCH (10:24)
--- NOTE | 2024-04-09 12:20 | XRAY ---
CLINICAL HISTORY: infection, both feet COMPARISON: X-ray dated 03/20/2024. TECHNIQUE: X-ray left foot was performed in 3 views: AP, oblique and lateral views FINDINGS: Status post amputation of big toe phalanges and middle and distal phalanges of the third toe. Generalized reduced bone density. Sclerosis with cortical thickening of the second metatarsal and proximal phalanx seen. No significant soft tissue swelling seen. Plantar calcaneal spurs seen. Intervention seen at ankle joint. Reduced ankle and intertarsal joint spaces likely degenerative. No acute fracture or dislocation seen. IMPRESSION: 1. Status post amputation of big toe phalanges and middle and distal phalanges of the third toe. 2. Sclerosis with cortical thickening of the second metatarsal and proximal phalanx could be post inflammatory changes, Clinical correlation and MRI of foot with contrast are advised. 3. Osteopenia. 4. Plantar calcaneal spurs seen. 5. No gross interval changes. DISCLAIMER:A subtle bone abnormality or fracture may not be readily apparent on x-rays, thus clinical correlation and further imaging including follow up CT, MRI, or follow up x-rays are advised as needed Electronically Signed by: Luis Freitas MD. (04/09/2024 12:16:53 EDT)
--- NOTE | 2024-04-09 12:34 | XRAY ---
CLINICAL HISTORY: infection, both feet COMPARISON: None. TECHNIQUE: X-ray of the right foot was performed in (3 views) AP, Oblique and lateral views. FINDINGS: No significant soft tissue swelling is seen. Generalized reduced bone density is seen. 2.5 x 1.8 cm oval-shaped lucent area is seen in the calcaneus. Plantar calcaneal spur seen. Intact visualized joint spaces. No definite fracture line or subluxation is seen. IMPRESSION: 1. No significant soft tissue swelling seen. MRI foot with contrast is better modality for the infection. 2. Osteopenia. 3. 2.5 x 1.8 cm oval-shaped lucent area is seen in the calcaneus. Differential includes lipoma/bone cyst, would recommend MRI for further evaluation. 4. Plantar calcaneal spur. DISCLAIMER:A subtle bone abnormality or fracture may not be readily apparent on x-rays, thus clinical correlation and further imaging including follow up CT, MRI, or follow up x-rays are advised as needed. Electronically Signed by: Luis Freitas MD. (04/09/2024 12:31:01 EDT)
--- NOTE | 2024-04-09 13:07 | PCM.CONS ---
Podiatry HPI - Consult Date of Consultation Date: 04/09/24 Reason for Consult: Possible foot infection, uncontrolled diabetes, Multiple digital amputations, DKA Consulting Provider: ADDY BEATTY DPM - [facility] History of Present Illness: Eric is a very plesant 63 year old male with a significant PMHx for hypertension, diabetes with multiple previous episodes/hospitalizations for DKA. On 04/08/24 he was brought to the ER after passing out at a store while riding an electric cart. Upon arrival, he was found to have low blood sugars in the 30s- 40s despite several amps of D50. His initial labs were notable for an elevated c reatinine of 1.5, and was started on IVFs. Pt denies any other source of infection. He has no pain. CXR and head CT negative for acute concern. UC and BC x2 pending. He denies CP, SOB, abd. pain, N/V/D. Medications & Allergies Home Medications: Home Medication List Insulin Glargine [Lantus Insulin] 35 units SQ QAM 03/25/19 [History Confirmed 04/08/24] Gabapentin 600 mg PO TID 04/01/23 [History Confirmed 04/08/24] Amlodipine Besylate [Norvasc] 10 mg PO DAILY 03/07/24 [History Confirmed 04/08/24] Multivitamins,Therapeutic Tab* [Theragran Multivitamin] 1 tab PO DAILY 03/07/24 [History Confirmed 04/08/24] Lactobacillus Acidophilus [Acidophilus TABLET] 1 tab PO DAILY 30 Days #30 tablet 03/08/24 [Rx Confirmed 04/08/24] Lisinopril 10 mg [Zestril 10 MG] 10 mg PO DAILY 30 Days #30 tablet 03/08/24 [Rx Confirmed 04/08/24] Insulin Lispro [Humalog Kwikpen U-100] 1 unit SQ ACHS 04/01/24 [History Confirmed 04/08/24] Atorvastatin Calcium 80 mg PO DAILY 04/09/24 [History Confirmed 04/09/24] HydrALAzine HCL 25 MG TAB [Apresoline 25 MG TABLET] 50 mg PO TID 04/09/24 [History Confirmed 04/09/24] Allergies/Adverse Reactions: Allergies Allergy/AdvReac Type Severity Reaction Status Date / Time codeine AdvReac Severe Vomiting Verified 04/01/24 19:23 hydrocodone bitartrate AdvReac Severe Vomiting Verified 04/01/24 19:23 [From Vicodin] propoxyphene AdvReac Verified 04/01/24 19:23 [From Darvocet-N 100] - Past Medical History Past Medical History: Yes Neurological History: Seizures ENT History: No Pertinent History Cardiac History: No Pertinent History Respiratory History: No Pertinent History Endocrine Medical History: Diabetes Type II Musculoskelatal History: No Pertinent History GI Medical History: No Pertinent History History: No Pertinent History Pyscho-Social History: No Pertinent History Male Reproductive Disorders: No Pertinent History Comment: FX L LEG AND FOOT subsequent infection. gangrene, sepsis 2014 - Past Surgical History Past Surgical History: Yes Neuro Surgical History: No Pertinent History Cardiac History: No Pertinent History Respiratory Surgery: No Pertinent History GI Surgical History: Cholecystectomy, Hernia Repair Genitourinary Surgical Hx: No Pertinent History Musculskeletal Surgical Hx: Orthopedic Surgery Male Surgical History: No Pertinent History Other Surgical History: right femur fixed at age 15. left foot broke at age 20. left leg and foot surgery ,,I&D of left foot, polyps removed - Social History Smoking Status: Never smoker How long have you smoked: 1 yr Exposure to second hand smoke: No Alcohol: None Drug Use: none - Social Determinants of Health Will the patient participate in the screening: Yes Do you worry about a steady place to live?: No Do you have any problems with any of the following?: No known problems In the past 12 months,have you had to go without utilities?: No Have you or anyone in your house had to go without enough: No Transportation Issues: No Has anyone in your support network made you feel unsafe?: No Does the patient want assistance with any of the above?: No Physical Exam - General General Appearance: no apparent distress - Neuro Neurologic: Epicritic and protopathic (absent) - Vascular Peripheral Pulses: Posterior tibialis: 2+, Dorsalis-Pedis: 2+ Capillary Refill Time: < 3 seconds Hair Growth: Symmetrical and Bilateral Varicosities: Negtive Edema: None Skin: Supple, not atrophic Skin Temperature: Warm to touch - Muscular Digital Deformity: amp L 1&3 - Narrative Narrative Physical Exam: small nodule on the lateral aspect of the right hallux, Healing blister in area of ingrowing toenail to the right lateral hallux border. negative for wound erythmea or drainage. No cellulitis, lymphangitis noted. No proximal streaking. Results - Labs Lab/Micro Results: Lab Results-Last 24 Hours 04/08/24 04/08/24 04/08/24 Range/Units 16:30 16:30 16:30 WBC 7.4 (4.23-9.07) x10^3/uL RBC 3.44 L (4.63-6.08) x10^6/uL Hgb 10.1 L (13.7-17.5) g/dL Hct 30.2 L (40.1-51.0) % MCV 87.8 (79.0-92.2) fL MCH 29.4 (25.7-32.2) pg MCHC 33.4 (32.3-36.5) g/dL RDW 13.4 (11.6-14.4) % Plt Count 202 (163-337) x10^3/uL MPV 11.2 (9.4-12.4) fL Gran % (34.0-67.9) % Immature Gran % (Auto) (0.001-0.429) % Nucleat RBC Rel Count (0.00-0.2) % Eos # (Auto) (0.04-0.54) x10^3/uL Immature Gran # (Auto) (0.001-0.031) x10^3u/L Absolute Lymphs (auto) (1.32-3.57) x10^3/uL Absolute Monos (auto) (0.30-0.82) x10^3/uL Absolute Nucleated RBC (0.00-0.012) x10^3u/L Lymphocytes % (21.8-53.1) % Monocytes % (5.3-12.2) % Eosinophils % (0.8-7.0) % Basophils % (0.2-1.2) % Absolute Granulocytes (1.78-5.38) x10^3/uL Segmented Neutrophils 62 H (1.78-5.38) % Lymphocytes (Manual) 30 (24-44) % Monocytes (Manual) 6 (0.0-12.0) % Eosinophils (Manual) 2 (0.00-3.0) % Basophils # (0.01-0.08) x10^3/uL Platelet Estimate NORMAL (NORMAL) RBC Morphology NORMAL Sodium 139 (135-145) mmol/L Potassium 3.7 (3.5-5.1) mmol/L Chloride 108 H (98-107) mmol/L Carbon Dioxide 23 (22-30) mmol/L Anion Gap 12.1 (5-15) MEQ/L BUN 25 H (9-20) mg/dL Creatinine 1.46 H (0.66-1.25) mg/dL Estimated GFR 53.4 ML/MIN Glucose 106 (74-106) mg/dL POC Glucometer (50 to 500) mg/dL Lactic Acid (0.4-2.0) Calcium 10.0 (8.4-10.2) mg/dL Magnesium 1.9 (1.6-2.3) mg/dL Total Bilirubin 0.70 (0.2-1.3) mg/dL AST 20 (17-59) U/L ALT 17 (0-50) U/L Alkaline Phosphatase 66 (38-126) U/L Ammonia (9-30) umol/L Serum Total Protein 6.5 (6.3-8.2) g/dL Albumin 3.9 (3.5-5.0) g/dL Urine Color (Yellow) Urine Appearance (Clear) Urine pH (4.6-8.0) Ur Specific [place] (1.005-1.030) Urine Protein (Negative) Urine Glucose (UA) (Negative) mg/dL Urine Ketones (Negative) Urine Blood (Negative) Urine Nitrite (Negative) Urine Bilirubin (Negative) Urine Urobilinogen (0.2) mg/dL Ur Leukocyte Esterase (Negative) U Hyaline Cast (Auto) (0-2) /LPF Urine Microscopic RBC (0-5) /HPF Urine Microscopic WBC (0-5) /HPF Ur Epithelial Cells (None Seen) /HPF Urine Bacteria (None Seen) /HPF Urine Culture Reflexed (NO) Ur Random Creatinine MG/DL U Random Total Protein (0-12) mg/dL Urine Sodium (30-90) mmol/L Urine Opiates Level (NEGATIVE) Ur Methadone (NEGATIVE) Urine Barbiturates (NEGATIVE) Ur Phencyclidine (PCP) (NEGATIVE) Urine Amphetamine (NEGATIVE) U Benzodiazepine Level (NEGATIVE) Urine Cocaine (NEGATIVE) Urine Marijuana (THC) (NEGATIVE) Ethyl Alcohol < 10 (0-10) mg/dL Influenza Type A Ag (NEGATIVE) Influenza Type B Ag (NEGATIVE) RSV (PCR) (NEGATIVE) SARS-CoV-2 (PCR) (NEGATIVE) 04/08/24 04/08/24 04/08/24 Range/Units 16:30 16:34 17:31 WBC (4.23-9.07) x10^3/uL RBC (4.63-6.08) x10^6/uL Hgb (13.7-17.5) g/dL Hct (40.1-51.0) % MCV (79.0-92.2) fL MCH (25.7-32.2) pg MCHC (32.3-36.5) g/dL RDW (11.6-14.4) % Plt Count (163-337) x10^3/uL MPV (9.4-12.4) fL Gran % (34.0-67.9) % Immature Gran % (Auto) (0.001-0.429) % Nucleat RBC Rel Count (0.00-0.2) % Eos # (Auto) (0.04-0.54) x10^3/uL Immature Gran # (Auto) (0.001-0.031) x10^3u/L Absolute Lymphs (auto) (1.32-3.57) x10^3/uL Absolute Monos (auto) (0.30-0.82) x10^3/uL Absolute Nucleated RBC (0.00-0.012) x10^3u/L Lymphocytes % (21.8-53.1) % Monocytes % (5.3-12.2) % Eosinophils % (0.8-7.0) % Basophils % (0.2-1.2) % Absolute Granulocytes (1.78-5.38) x10^3/uL Segmented Neutrophils (1.78-5.38) % Lymphocytes (Manual) (24-44) % Monocytes (Manual) (0.0-12.0) % Eosinophils (Manual) (0.00-3.0) % Basophils # (0.01-0.08) x10^3/uL Platelet Estimate (NORMAL) RBC Morphology Sodium (135-145) mmol/L Potassium (3.5-5.1) mmol/L Chloride (98-107) mmol/L Carbon Dioxide (22-30) mmol/L Anion Gap (5-15) MEQ/L BUN (9-20) mg/dL Creatinine (0.66-1.25) mg/dL Estimated GFR ML/MIN Glucose (74-106) mg/dL POC Glucometer 28 L* (50 to 500) mg/dL Lactic Acid 2.1 H (0.4-2.0) Calcium (8.4-10.2) mg/dL Magnesium (1.6-2.3) mg/dL Total Bilirubin (0.2-1.3) mg/dL AST (17-59) U/L ALT (0-50) U/L Alkaline Phosphatase (38-126) U/L Ammonia < 9 L (9-30) umol/L Serum Total Protein (6.3-8.2) g/dL Albumin (3.5-5.0) g/dL Urine Color (Yellow) Urine Appearance (Clear) Urine pH (4.6-8.0) Ur Specific [place] (1.005-1.030) Urine Protein (Negative) Urine Glucose (UA) (Negative) mg/dL Urine Ketones (Negative) Urine Blood (Negative) Urine Nitrite (Negative) Urine Bilirubin (Negative) Urine Urobilinogen (0.2) mg/dL Ur Leukocyte Esterase (Negative) U Hyaline Cast (Auto) (0-2) /LPF Urine Microscopic RBC (0-5) /HPF Urine Microscopic WBC (0-5) /HPF Ur Epithelial Cells (None Seen) /HPF Urine Bacteria (None Seen) /HPF Urine Culture Reflexed (NO) Ur Random Creatinine MG/DL U Random Total Protein (0-12) mg/dL Urine Sodium (30-90) mmol/L Urine Opiates Level (NEGATIVE) Ur Methadone (NEGATIVE) Urine Barbiturates (NEGATIVE) Ur Phencyclidine (PCP) (NEGATIVE) Urine Amphetamine (NEGATIVE) U Benzodiazepine Level (NEGATIVE) Urine Cocaine (NEGATIVE) Urine Marijuana (THC) (NEGATIVE) Ethyl Alcohol (0-10) mg/dL Influenza Type A Ag (NEGATIVE) Influenza Type B Ag (NEGATIVE) RSV (PCR) (NEGATIVE) SARS-CoV-2 (PCR) (NEGATIVE) 04/08/24 04/08/24 04/08/24 Range/Units 18:15 18:15 18:15 WBC (4.23-9.07) x10^3/uL RBC (4.63-6.08) x10^6/uL Hgb (13.7-17.5) g/dL Hct (40.1-51.0) % MCV (79.0-92.2) fL MCH (25.7-32.2) pg MCHC (32.3-36.5) g/dL RDW (11.6-14.4) % Plt Count (163-337) x10^3/uL MPV (9.4-12.4) fL Gran % (34.0-67.9) % Immature Gran % (Auto) (0.001-0.429) % Nucleat RBC Rel Count (0.00-0.2) % Eos # (Auto) (0.04-0.54) x10^3/uL Immature Gran # (Auto) (0.001-0.031) x10^3u/L Absolute Lymphs (auto) (1.32-3.57) x10^3/uL Absolute Monos (auto) (0.30-0.82) x10^3/uL Absolute Nucleated RBC (0.00-0.012) x10^3u/L Lymphocytes % (21.8-53.1) % Monocytes % (5.3-12.2) % Eosinophils % (0.8-7.0) % Basophils % (0.2-1.2) % Absolute Granulocytes (1.78-5.38) x10^3/uL Segmented Neutrophils (1.78-5.38) % Lymphocytes (Manual) (24-44) % Monocytes (Manual) (0.0-12.0) % Eosinophils (Manual) (0.00-3.0) % Basophils # (0.01-0.08) x10^3/uL Platelet Estimate (NORMAL) RBC Morphology Sodium (135-145) mmol/L Potassium (3.5-5.1) mmol/L Chloride (98-107) mmol/L Carbon Dioxide (22-30) mmol/L Anion Gap (5-15) MEQ/L BUN (9-20) mg/dL Creatinine (0.66-1.25) mg/dL Estimated GFR ML/MIN Glucose (74-106) mg/dL POC Glucometer (50 to 500) mg/dL Lactic Acid (0.4-2.0) Calcium (8.4-10.2) mg/dL Magnesium (1.6-2.3) mg/dL Total Bilirubin (0.2-1.3) mg/dL AST (17-59) U/L ALT (0-50) U/L Alkaline Phosphatase (38-126) U/L Ammonia (9-30) umol/L Serum Total Protein (6.3-8.2) g/dL Albumin (3.5-5.0) g/dL Urine Color Yellow (Yellow) Urine Appearance Clear (Clear) Urine pH 5.5 (4.6-8.0) Ur Specific [place] 1.015 (1.005-1.030) Urine Protein 30 (Negative) Urine Glucose (UA) >=1000 A (Negative) mg/dL Urine Ketones Negative (Negative) Urine Blood Negative (Negative) Urine Nitrite Negative (Negative) Urine Bilirubin Negative (Negative) Urine Urobilinogen 0.2 (0.2) mg/dL Ur Leukocyte Esterase Negative (Negative) U Hyaline Cast (Auto) 3-5 A (0-2) /LPF Urine Microscopic RBC 0-2 (0-5) /HPF Urine Microscopic WBC 0-2 (0-5) /HPF Ur Epithelial Cells None Seen (None Seen) /HPF Urine Bacteria None Seen (None Seen) /HPF Urine Culture Reflexed ORDERED SEPARATELY (NO) Ur Random Creatinine 106.7 MG/DL U Random Total Protein 50 H (0-12) mg/dL Urine Sodium 98 H (30-90) mmol/L Urine Opiates Level NEGATIVE (NEGATIVE) Ur Methadone NEGATIVE (NEGATIVE) Urine Barbiturates NEGATIVE (NEGATIVE) Ur Phencyclidine (PCP) NEGATIVE (NEGATIVE) Urine Amphetamine NEGATIVE (NEGATIVE) U Benzodiazepine Level NEGATIVE (NEGATIVE) Urine Cocaine NEGATIVE (NEGATIVE) Urine Marijuana (THC) NEGATIVE (NEGATIVE) Ethyl Alcohol (0-10) mg/dL Influenza Type A Ag (NEGATIVE) Influenza Type B Ag (NEGATIVE) RSV (PCR) (NEGATIVE) SARS-CoV-2 (PCR) (NEGATIVE) 04/08/24 04/08/2424 Range/Units 18:36 18:36 19:23 WBC (4.23-9.07) x10^3/uL RBC (4.63-6.08) x10^6/uL Hgb (13.7-17.5) g/dL Hct (40.1-51.0) % MCV (79.0-92.2) fL MCH (25.7-32.2) pg MCHC (32.3-36.5) g/dL RDW (11.6-14.4) % Plt Count (163-337) x10^3/uL MPV (9.4-12.4) fL Gran % (34.0-67.9) % Immature Gran % (Auto) (0.001-0.429) % Nucleat RBC Rel Count (0.00-0.2) % Eos # (Auto) (0.04-0.54) x10^3/uL Immature Gran # (Auto) (0.001-0.031) x10^3u/L Absolute Lymphs (auto) (1.32-3.57) x10^3/uL Absolute Monos (auto) (0.30-0.82) x10^3/uL Absolute Nucleated RBC (0.00-0.012) x10^3u/L Lymphocytes % (21.8-53.1) % Monocytes % (5.3-12.2) % Eosinophils % (0.8-7.0) % Basophils % (0.2-1.2) % Absolute Granulocytes (1.78-5.38) x10^3/uL Segmented Neutrophils (1.78-5.38) % Lymphocytes (Manual) (24-44) % Monocytes (Manual) (0.0-12.0) % Eosinophils (Manual) (0.00-3.0) % Basophils # (0.01-0.08) x10^3/uL Platelet Estimate (NORMAL) RBC Morphology Sodium (135-145) mmol/L Potassium (3.5-5.1) mmol/L Chloride (98-107) mmol/L Carbon Dioxide (22-30) mmol/L Anion Gap (5-15) MEQ/L BUN (9-20) mg/dL Creatinine (0.66-1.25) mg/dL Estimated GFR ML/MIN Glucose (74-106) mg/dL POC Glucometer 38 L* 143 H (50 to 500) mg/dL Lactic Acid 1.5 (0.4-2.0) Calcium (8.4-10.2) mg/dL Magnesium (1.6-2.3) mg/dL Total Bilirubin (0.2-1.3) mg/dL AST (17-59) U/L ALT (0-50) U/L Alkaline Phosphatase (38-126) U/L Ammonia (9-30) umol/L Serum Total Protein (6.3-8.2) g/dL Albumin (3.5-5.0) g/dL Urine Color (Yellow) Urine Appearance (Clear) Urine pH (4.6-8.0) Ur Specific [place] (1.005-1.030) Urine Protein (Negative) Urine Glucose (UA) (Negative) mg/dL Urine Ketones (Negative) Urine Blood (Negative) Urine Nitrite (Negative) Urine Bilirubin (Negative) Urine Urobilinogen (0.2) mg/dL Ur Leukocyte Esterase (Negative) U Hyaline Cast (Auto) (0-2) /LPF Urine Microscopic RBC (0-5) /HPF Urine Microscopic WBC (0-5) /HPF Ur Epithelial Cells (None Seen) /HPF Urine Bacteria (None Seen) /HPF Urine Culture Reflexed (NO) Ur Random Creatinine MG/DL U Random Total Protein (0-12) mg/dL Urine Sodium (30-90) mmol/L Urine Opiates Level (NEGATIVE) Ur Methadone (NEGATIVE) Urine Barbiturates (NEGATIVE) Ur Phencyclidine (PCP) (NEGATIVE) Urine Amphetamine (NEGATIVE) U Benzodiazepine Level (NEGATIVE) Urine Cocaine (NEGATIVE) Urine Marijuana (THC) (NEGATIVE) Ethyl Alcohol (0-10) mg/dL Influenza Type A Ag (NEGATIVE) Influenza Type B Ag (NEGATIVE) RSV (PCR) (NEGATIVE) SARS-CoV-2 (PCR) (NEGATIVE) 04/08/24 04/08/24 04/08/24 Range/Units 19:55 20:40 22:03 WBC (4.23-9.07) x10^3/uL RBC (4.63-6.08) x10^6/uL Hgb (13.7-17.5) g/dL Hct (40.1-51.0) % MCV (79.0-92.2) fL MCH (25.7-32.2) pg MCHC (32.3-36.5) g/dL RDW (11.6-14.4) % Plt Count (163-337) x10^3/uL MPV (9.4-12.4) fL Gran % (34.0-67.9) % Immature Gran % (Auto) (0.001-0.429) % Nucleat RBC Rel Count (0.00-0.2) % Eos # (Auto) (0.04-0.54) x10^3/uL Immature Gran # (Auto) (0.001-0.031) x10^3u/L Absolute Lymphs (auto) (1.32-3.57) x10^3/uL Absolute Monos (auto) (0.30-0.82) x10^3/uL Absolute Nucleated RBC (0.00-0.012) x10^3u/L Lymphocytes % (21.8-53.1) % Monocytes % (5.3-12.2) % Eosinophils % (0.8-7.0) % Basophils % (0.2-1.2) % Absolute Granulocytes (1.78-5.38) x10^3/uL Segmented Neutrophils (1.78-5.38) % Lymphocytes (Manual) (24-44) % Monocytes (Manual) (0.0-12.0) % Eosinophils (Manual) (0.00-3.0) % Basophils # (0.01-0.08) x10^3/uL Platelet Estimate (NORMAL) RBC Morphology Sodium (135-145) mmol/L Potassium (3.5-5.1) mmol/L Chloride (98-107) mmol/L Carbon Dioxide (22-30) mmol/L Anion Gap (5-15) MEQ/L BUN (9-20) mg/dL Creatinine (0.66-1.25) mg/dL Estimated GFR ML/MIN Glucose (74-106) mg/dL POC Glucometer 210 H 223 H (50 to 500) mg/dL Lactic Acid (0.4-2.0) Calcium (8.4-10.2) mg/dL Magnesium (1.6-2.3) mg/dL Total Bilirubin (0.2-1.3) mg/dL AST (17-59) U/L ALT (0-50) U/L Alkaline Phosphatase (38-126) U/L Ammonia (9-30) umol/L Serum Total Protein (6.3-8.2) g/dL Albumin (3.5-5.0) g/dL Urine Color (Yellow) Urine Appearance (Clear) Urine pH (4.6-8.0) Ur Specific [place] (1.005-1.030) Urine Protein (Negative) Urine Glucose (UA) (Negative) mg/dL Urine Ketones (Negative) Urine Blood (Negative) Urine Nitrite (Negative) Urine Bilirubin (Negative) Urine Urobilinogen (0.2) mg/dL Ur Leukocyte Esterase (Negative) U Hyaline Cast (Auto) (0-2) /LPF Urine Microscopic RBC (0-5) /HPF Urine Microscopic WBC (0-5) /HPF Ur Epithelial Cells (None Seen) /HPF Urine Bacteria (None Seen) /HPF Urine Culture Reflexed (NO) Ur Random Creatinine MG/DL U Random Total Protein (0-12) mg/dL Urine Sodium (30-90) mmol/L Urine Opiates Level (NEGATIVE) Ur Methadone (NEGATIVE) Urine Barbiturates (NEGATIVE) Ur Phencyclidine (PCP) (NEGATIVE) Urine Amphetamine (NEGATIVE) U Benzodiazepine Level (NEGATIVE) Urine Cocaine (NEGATIVE) Urine Marijuana (THC) (NEGATIVE) Ethyl Alcohol (0-10) mg/dL Influenza Type A Ag NEGATIVE (NEGATIVE) Influenza Type B Ag NEGATIVE (NEGATIVE) RSV (PCR) NEGATIVE (NEGATIVE) SARS-CoV-2 (PCR) NEGATIVE (NEGATIVE) 04/09/24 04/09/24 04/09/24 Range/Units 00:07 03:48 05:49 WBC (4.23-9.07) x10^3/uL RBC (4.63-6.08) x10^6/uL Hgb (13.7-17.5) g/dL Hct (40.1-51.0) % MCV (79.0-92.2) fL MCH (25.7-32.2) pg MCHC (32.3-36.5) g/dL RDW (11.6-14.4) % Plt Count (163-337) x10^3/uL MPV (9.4-12.4) fL Gran % (34.0-67.9) % Immature Gran % (Auto) (0.001-0.429) % Nucleat RBC Rel Count (0.00-0.2) % Eos # (Auto) (0.04-0.54) x10^3/uL Immature Gran # (Auto) (0.001-0.031) x10^3u/L Absolute Lymphs (auto) (1.32-3.57) x10^3/uL Absolute Monos (auto) (0.30-0.82) x10^3/uL Absolute Nucleated RBC (0.00-0.012) x10^3u/L Lymphocytes % (21.8-53.1) % Monocytes % (5.3-12.2) % Eosinophils % (0.8-7.0) % Basophils % (0.2-1.2) % Absolute Granulocytes (1.78-5.38) x10^3/uL Segmented Neutrophils (1.78-5.38) % Lymphocytes (Manual) (24-44) % Monocytes (Manual) (0.0-12.0) % Eosinophils (Manual) (0.00-3.0) % Basophils # (0.01-0.08) x10^3/uL Platelet Estimate (NORMAL) RBC Morphology Sodium (135-145) mmol/L Potassium (3.5-5.1) mmol/L Chloride (98-107) mmol/L Carbon Dioxide (22-30) mmol/L Anion Gap (5-15) MEQ/L BUN (9-20) mg/dL Creatinine (0.66-1.25) mg/dL Estimated GFR ML/MIN Glucose (74-106) mg/dL POC Glucometer 241 H 166 H 137 H (50 to 500) mg/dL Lactic Acid (0.4-2.0) Calcium (8.4-10.2) mg/dL Magnesium (1.6-2.3) mg/dL Total Bilirubin (0.2-1.3) mg/dL AST (17-59) U/L ALT (0-50) U/L Alkaline Phosphatase (38-126) U/L Ammonia (9-30) umol/L Serum Total Protein (6.3-8.2) g/dL Albumin (3.5-5.0) g/dL Urine Color (Yellow) Urine Appearance (Clear) Urine pH (4.6-8.0) Ur Specific [place] (1.005-1.030) Urine Protein (Negative) Urine Glucose (UA) (Negative) mg/dL Urine Ketones (Negative) Urine Blood (Negative) Urine Nitrite (Negative) Urine Bilirubin (Negative) Urine Urobilinogen (0.2) mg/dL Ur Leukocyte Esterase (Negative) U Hyaline Cast (Auto) (0-2) /LPF Urine Microscopic RBC (0-5) /HPF Urine Microscopic WBC (0-5) /HPF Ur Epithelial Cells (None Seen) /HPF Urine Bacteria (None Seen) /HPF Urine Culture Reflexed (NO) Ur Random Creatinine MG/DL U Random Total Protein (0-12) mg/dL Urine Sodium (30-90) mmol/L Urine Opiates Level (NEGATIVE) Ur Methadone (NEGATIVE) Urine Barbiturates (NEGATIVE) Ur Phencyclidine (PCP) (NEGATIVE) Urine Amphetamine (NEGATIVE) U Benzodiazepine Level (NEGATIVE) Urine Cocaine (NEGATIVE) Urine Marijuana (THC) (NEGATIVE) Ethyl Alcohol (0-10) mg/dL Influenza Type A Ag (NEGATIVE) Influenza Type B Ag (NEGATIVE) RSV (PCR) (NEGATIVE) SARS-CoV-2 (PCR) (NEGATIVE) 04/09/24 04/09/24 04/09/24 Range/Units 07:44 09:15 09:15 WBC 6.4 (4.23-9.07) x10^3/uL RBC 3.25 L (4.63-6.08) x10^6/uL Hgb 9.6 L (13.7-17.5) g/dL Hct 28.7 L (40.1-51.0) % MCV 88.3 (79.0-92.2) fL MCH 29.5 (25.7-32.2) pg MCHC 33.4 (32.3-36.5) g/dL RDW 13.3 (11.6-14.4) % Plt Count 164 (163-337) x10^3/uL MPV 11.2 (9.4-12.4) fL Gran % 60.3 (34.0-67.9) % Immature Gran % (Auto) 0.2 (0.001-0.429) % Nucleat RBC Rel Count 0.0 (0.00-0.2) % Eos # (Auto) 0.21 (0.04-0.54) x10^3/uL Immature Gran # (Auto) 0.01 (0.001-0.031) x10^3u/L Absolute Lymphs (auto) 1.75 (1.32-3.57) x10^3/uL Absolute Monos (auto) 0.53 (0.30-0.82) x10^3/uL Absolute Nucleated RBC 0.00 (0.00-0.012) x10^3u/L Lymphocytes % 27.2 (21.8-53.1) % Monocytes % 8.2 (5.3-12.2) % Eosinophils % 3.3 (0.8-7.0) % Basophils % 0.8 (0.2-1.2) % Absolute Granulocytes 3.89 (1.78-5.38) x10^3/uL Segmented Neutrophils (1.78-5.38) % Lymphocytes (Manual) (24-44) % Monocytes (Manual) (0.0-12.0) % Eosinophils (Manual) (0.00-3.0) % Basophils # 0.05 (0.01-0.08) x10^3/uL Platelet Estimate (NORMAL) RBC Morphology Sodium 137 (135-145) mmol/L Potassium 4.0 (3.5-5.1) mmol/L Chloride 107 (98-107) mmol/L Carbon Dioxide 24 (22-30) mmol/L Anion Gap 10.3 (5-15) MEQ/L BUN 22 H (9-20) mg/dL Creatinine 1.10 (0.66-1.25) mg/dL Estimated GFR 75.0 ML/MIN Glucose 110 H (74-106) mg/dL POC Glucometer 108 H (50 to 500) mg/dL Lactic Acid (0.4-2.0) Calcium 9.4 (8.4-10.2) mg/dL Magnesium (1.6-2.3) mg/dL Total Bilirubin 0.70 (0.2-1.3) mg/dL AST 18 (17-59) U/L ALT 15 (0-50) U/L Alkaline Phosphatase 62 (38-126) U/L Ammonia (9-30) umol/L Serum Total Protein 5.9 L (6.3-8.2) g/dL Albumin 3.5 (3.5-5.0) g/dL Urine Color (Yellow) Urine Appearance (Clear) Urine pH (4.6-8.0) Ur Specific [place] (1.005-1.030) Urine Protein (Negative) Urine Glucose (UA) (Negative) mg/dL Urine Ketones (Negative) Urine Blood (Negative) Urine Nitrite (Negative) Urine Bilirubin (Negative) Urine Urobilinogen (0.2) mg/dL Ur Leukocyte Esterase (Negative) U Hyaline Cast (Auto) (0-2) /LPF Urine Microscopic RBC (0-5) /HPF Urine Microscopic WBC (0-5) /HPF Ur Epithelial Cells (None Seen) /HPF Urine Bacteria (None Seen) /HPF Urine Culture Reflexed (NO) Ur Random Creatinine MG/DL U Random Total Protein (0-12) mg/dL Urine Sodium (30-90) mmol/L Urine Opiates Level (NEGATIVE) Ur Methadone (NEGATIVE) Urine Barbiturates (NEGATIVE) Ur Phencyclidine (PCP) (NEGATIVE) Urine Amphetamine (NEGATIVE) U Benzodiazepine Level (NEGATIVE) Urine Cocaine (NEGATIVE) Urine Marijuana (THC) (NEGATIVE) Ethyl Alcohol (0-10) mg/dL Influenza Type A Ag (NEGATIVE) Influenza Type B Ag (NEGATIVE) RSV (PCR) (NEGATIVE) SARS-CoV-2 (PCR) (NEGATIVE) 04/09/24 04/09/24 Range/Units 09:25 10:55 WBC (4.23-9.07) x10^3/uL RBC (4.63-6.08) x10^6/uL Hgb (13.7-17.5) g/dL Hct (40.1-51.0) % MCV (79.0-92.2) fL MCH (25.7-32.2) pg MCHC (32.3-36.5) g/dL RDW (11.6-14.4) % Plt Count (163-337) x10^3/uL MPV (9.4-12.4) fL Gran % (34.0-67.9) % Immature Gran % (Auto) (0.001-0.429) % Nucleat RBC Rel Count (0.00-0.2) % Eos # (Auto) (0.04-0.54) x10^3/uL Immature Gran # (Auto) (0.001-0.031) x10^3u/L Absolute Lymphs (auto) (1.32-3.57) x10^3/uL Absolute Monos (auto) (0.30-0.82) x10^3/uL Absolute Nucleated RBC (0.00-0.012) x10^3u/L Lymphocytes % (21.8-53.1) % Monocytes % (5.3-12.2) % Eosinophils % (0.8-7.0) % Basophils % (0.2-1.2) % Absolute Granulocytes (1.78-5.38) x10^3/uL Segmented Neutrophils (1.78-5.38) % Lymphocytes (Manual) (24-44) % Monocytes (Manual) (0.0-12.0) % Eosinophils (Manual) (0.00-3.0) % Basophils # (0.01-0.08) x10^3/uL Platelet Estimate (NORMAL) RBC Morphology Sodium (135-145) mmol/L Potassium (3.5-5.1) mmol/L Chloride (98-107) mmol/L Carbon Dioxide (22-30) mmol/L Anion Gap (5-15) MEQ/L BUN (9-20) mg/dL Creatinine (0.66-1.25) mg/dL Estimated GFR ML/MIN Glucose (74-106) mg/dL POC Glucometer 104 (50 to 500) mg/dL Lactic Acid 1.2 (0.4-2.0) Calcium (8.4-10.2) mg/dL Magnesium (1.6-2.3) mg/dL Total Bilirubin (0.2-1.3) mg/dL AST (17-59) U/L ALT (0-50) U/L Alkaline Phosphatase (38-126) U/L Ammonia (9-30) umol/L Serum Total Protein (6.3-8.2) g/dL Albumin (3.5-5.0) g/dL Urine Color (Yellow) Urine Appearance (Clear) Urine pH (4.6-8.0) Ur Specific [place] (1.005-1.030) Urine Protein (Negative) Urine Glucose (UA) (Negative) mg/dL Urine Ketones (Negative) Urine Blood (Negative) Urine Nitrite (Negative) Urine Bilirubin (Negative) Urine Urobilinogen (0.2) mg/dL Ur Leukocyte Esterase (Negative) U Hyaline Cast (Auto) (0-2) /LPF Urine Microscopic RBC (0-5) /HPF Urine Microscopic WBC (0-5) /HPF Ur Epithelial Cells (None Seen) /HPF Urine Bacteria (None Seen) /HPF Urine Culture Reflexed (NO) Ur Random Creatinine MG/DL U Random Total Protein (0-12) mg/dL Urine Sodium (30-90) mmol/L Urine Opiates Level (NEGATIVE) Ur Methadone (NEGATIVE) Urine Barbiturates (NEGATIVE) Ur Phencyclidine (PCP) (NEGATIVE) Urine Amphetamine (NEGATIVE) U Benzodiazepine Level (NEGATIVE) Urine Cocaine (NEGATIVE) Urine Marijuana (THC) (NEGATIVE) Ethyl Alcohol (0-10) mg/dL Influenza Type A Ag (NEGATIVE) Influenza Type B Ag (NEGATIVE) RSV (PCR) (NEGATIVE) SARS-CoV-2 (PCR) (NEGATIVE) Accuchecks Date 04/09/24 Date 04/09/24 Date 04/09/24 Date 04/09/24 Date 04/09/24 Date 04/08/24 Date 04/08/24 Time 11:30 Time 07:48 Time 05:50 Time 04:00 Time 00:11 Time 22:00 Time 16:29 - Radiology Impressions Radiology Exams & Impressions: Radiology Procedures Category Date Time Status CHEST 1 VIEW (PORTABLE) Stat Exams 04/08/24 18:08 Completed FOOT (MINIMUM 3 VIEWS) Routine Exams 04/09/24 10:56 Completed FOOT (MINIMUM 3 VIEWS) Routine Exams 04/09/24 10:57 Completed HEAD WITHOUT CONTRAST [CT] Stat Exams 04/08/24 16:13 Completed Assessment/Plan (1) Osteomyelitis Current Visit: No Status: Acute Qualifiers: Osteomyelitis type: unspecified type Laterality: left Assessment & Plan: Initial patient examination and evaluation Radiographs reviewed demonstrating no obvious findings for infection. There are no concominant clinical indication of infection the bilateral lower extremity at this time however potential of uncomplicated abscess to the lateral aspect of the hallux of the right foot. To the left no changes on Radiographs from February. At this time will rely on advanced imaging to assess. MRI to the bilateral foot w/o contrast to be preformed Assess for other infection source BCx 2 pending. Merropenem on per medicine team. Thank you for the consult Following with you Code(s): M86.9 - OSTEOMYELITIS, UNSPECIFIED (2) Type 2 diabetes mellitus with left diabetic foot infection Current Visit: No Status: Resolved Code(s): E11.628 - TYPE 2 DIABETES MELLITUS WITH OTHER SKIN COMPLICATIONS; L08.9 - LOCAL INFECTION OF THE SKIN AND SUBCUTANEOUS TISSUE, UNSP (3) Peripheral neuropathy Current Visit: No Status: Chronic Code(s): G62.9 - POLYNEUROPATHY, UNSPECIFIED (4) History of medication noncompliance Current Visit: No Status: Acute Code(s): Z91.148 - PATIENT'S OTHER NONCOMPL WITH MEDS REGIMEN FOR OTHER REASON (5) Altered mental status Current Visit: Yes Status: Acute Code(s): R41.82 - ALTERED MENTAL STATUS, UNSPECIFIED (6) Hypoglycemia Current Visit: Yes Status: Acute Code(s): E16.2 - HYPOGLYCEMIA, UNSPECIFIED (7) Toe abrasion Current Visit: Yes Status: Acute Code(s): S90.416A - ABRASION, UNSPECIFIED LESSER TOE(S), INITIAL ENCOUNTER (8) DKA (diabetic ketoacidoses) Current Visit: No Status: Acute Qualifiers: Code(s): E11.10 - TYPE 2 DIABETES MELLITUS WITH KETOACIDOSIS WITHOUT COMA (9) Uncontrolled type 2 diabetes mellitus Current Visit: No Status: Chronic Code(s): E11.65 - TYPE 2 DIABETES MELLITUS WITH HYPERGLYCEMIA
[2024-04-09] MEDS: MERREM 500 MG in Sodium Chloride 100ML MINI-BAG PLUS 100 ML IV SCH (14:08)
[2024-04-09 14:31] LABS: Hematocrit 26.5 % (40.1-51.0); Hemoglobin 8.9 g/dL (13.7-17.5); Mean Cell Volume 87.5 fL (79.0-92.2); Mean Corpuscular Hemoglobin 29.4 pg (25.7-32.2); Mean Corpuscular Hgb Concent. 33.6 g/dL (32.3-36.5); Platelet Count 144 x10^3/uL (163-337); Red Blood Count 3.03 x10^6/uL (4.63-6.08); Red Cell Distribution Width 13.3 % (11.6-14.4); White Blood Count 5.8 x10^3/uL (4.23-9.07)
[2024-04-09 14:44] LABS: ALBUMIN 3.1 g/dL (3.5-5.0); ANION GAP 8.9 MEQ/L (5-15); BILIRUBIN,TOTAL 0.7 mg/dL (0.2-1.3); Creatinine 1 1.02 mg/dL (0.66-1.25); EST GLOMERULAR FILTRATION RATE 82.1 ML/MIN; Total Protein 5.3 g/dL (6.3-8.2)
[2024-04-09] MEDS: HUMALOG SQ PRN (16:26)
[2024-04-09] MEDS ORDERED: Levofloxacin 500MG/100ML D5W 500 MG/100 ML BAG IV SCH (22:00)
[2024-04-10 05:03] LABS: Hematocrit 26.2 % (40.1-51.0); Hemoglobin 8.8 g/dL (13.7-17.5); Mean Corpuscular Hemoglobin 29.2 pg (25.7-32.2); Mean Corpuscular Hgb Concent. 33.6 g/dL (32.3-36.5); Platelet Count 153 x10^3/uL (163-337); Red Blood Count 3.01 x10^6/uL (4.63-6.08); Red Cell Distribution Width 13.2 % (11.6-14.4); White Blood Count 5.7 x10^3/uL (4.23-9.07)
[2024-04-10 05:18] LABS: ANION GAP 7.2 MEQ/L (5-15); BILIRUBIN,TOTAL 0.7 mg/dL (0.2-1.3); Calcium 8.8 mg/dL (8.4-10.2); Creatinine 1 0.94 mg/dL (0.66-1.25); EST GLOMERULAR FILTRATION RATE 90.5 ML/MIN; Potassium 3.8 mmol/L (3.5-5.1); Total Protein 5.3 g/dL (6.3-8.2)
--- NOTE | 2024-04-10 05:47 | PCM.NOTE ---
Date and Time: 04/10/24 0543 Subjective Assessment: is a 63 year old male with diabetes, HTN, seizure disorder and recurrent episodes of DKA admitted (most recently 04/01-04/02/24 where he decided to leave AMA as well as admission to [facility] for hypoglycemia - discharged 04/06/24) admitted 04/08/24 with encephalopathy due to to hypoglycemia after experiencing low blood sugars in the 30-40s at the store and passed out. Upon arrival, he was found to have low blood sugars in the 30s-40s despite several amps of D50. His initial labs were notable for an elevated creatinine of 1.5, and was started on IVFs. He initially had a low grade temp that increased up to 102 with no known cause. He was started on empiric antibiotic with Levaquin. Notably CXR and head CT have been negative for acute concern. UA also negative. Podiatry consulted in ER by physician has he has a small dried scab on interior aspect of top of right big toe. It has no erythema, edema, or pain. 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 His PCP Dr. Wells came in to see pt today and asked that antibiotic be changed to Merrem as he has had episodes of hyperglycemia and hypoglycemia with Levaquin in the past. He also wanted blood sugars checked more often, he already is having them checked Q2 hours and will leave it at this. He also requested that IVF be restarted- NS started at 50ml/hr. 04/10/24: Met with patient and spouse bedside. No fever x 24 hours. Blood sugars stable. Patient endorses poor appetite due to food "not tasting right." He reports recent thrush. Upon oral exam, white patches noted. Nystatin on backorder- will have pharmacy to dose difflucan. MRI of RLE showing soft tissue swelling/edema visualized forefoot and toes. Bone edema signal 2nd-5th toes as detailed. Rule out osteomyelitis. 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 Also 2nd MTP degenerative changes, reactive periosteal thickening 2nd metatarsal, and indeterminant 5 mm navicular sclerotic lesion. Podiatry following and patient to have resection to 2nd metatarsal today. Will change antibiotics to vanc/cefepime. Long discussion had with patient and spouse regarding the importance of good glycemic control- patient agreeable to appointment with Dr. Sutton (endocrinology) -scheduled for May 01, 2024. <SAIDA MOON - Last Filed: 04/10/24 14:16> Date and Time: 04/10/242242 <ALINA ECHEVERRIA - Last Filed: 04/10/24 22:43> - Review of Systems Constitutional: No Symptoms Eyes: No Symptoms Ears, Nose, & Throat: No Symptoms Respiratory: No Symptoms Cardiac: No Symptoms Abdominal/Gastrointestinal: No Symptoms Genitourinary Symptoms: No Symptoms Musculoskeletal: No Symptoms Skin: Skin Lesions (Right great toe medial aspect ) Neurological: No Symptoms Psychological: No Symptoms Endocrine: No Symptoms Hematologic/Lymphatic: No Symptoms Immunological/Allergic: No Symptoms <SAIDA MOON - Last Filed: 04/10/24 14:16> Objective Exam General Appearance: no apparent distress Neurologic Exam: alert, oriented x 3, cooperative Skin Exam: normal color Eye Exam: PERRL Ears, Nose, Throat Exam: normal ENT inspection Neck Exam: normal inspection Respiratory Exam: normal breath sounds, lungs clear Cardiovascular Exam: regular rate/rhythm, normal heart sounds Gastrointestinal/Abdomen Exam: soft, normal bowel sounds Extremity Exam: other ( open area to Right great toe medial aspect) Back Exam: normal inspection Male Genitalia Exam: deferred Rectal Exam: deferred <SAIDA MOON - Last Filed: 04/10/24 14:16> Wound Assessment: Skin/Wound Assessment Wound/Incision Assessment Start: 04/10/24 18:03 Text: Status: Active Freq: Q6H Protocol: Document 04/10/24 20:00 MM (Rec: 04/10/24 20:18 MM [id number]) Wound/Incision Assessment Left Toe Wound Assessment Shift Assessment Wound Type Incision Wound Stage Non Pressure Wound Dressing Status Dry & Intact Drainage Amount None Comment Surgery report: Adaptic soaked in betadine, 4X4, kerlex, cast padding, javier wrap. Dressing remains C/D/I. <ALINA ECHEVERRIA - Last Filed: 04/10/24 22:43> Objective Data Vital Signs: Vital Signs - 24 hr Temp Pulse Resp BP Pulse Ox 04/10/24 04:00 94 L 04/09/24 23:51 98.9 F 72 18 162/82 96 04/09/24 19:49 99.0 F 69 18 127/69 97 04/09/24 16:00 98.6 F 76 16 119/59 97 04/09/24 11:31 98.2 F 73 16 147/80 97 04/09/24 07:34 97.5 F 73 16 138/84 98 Pain Assessment - Last Documented Pain Intensity 0 Intake and Output: Intake & Output 04/07/24 04/08/24 04/09/24 04/10/24 11:59 11:59 11:59 11:59 Intake Total 380 851 Output Total 250 Balance 380 601 Weight 77.9 kg Lab Results: Lab Results-Last 24 Hours 04/09/24 04/09/24 04/09/24 Range/Units 05:49 07:44 09:15 WBC 6.4 (4.23-9.07) x10^3/uL RBC 3.25 L (4.63-6.08) x10^6/uL Hgb 9.6 L (13.7-17.5) g/dL Hct 28.7 L (40.1-51.0) % MCV 88.3 (79.0-92.2) fL MCH 29.5 (25.7-32.2) pg MCHC 33.4 (32.3-36.5) g/dL RDW 13.3 (11.6-14.4) % Plt Count 164 (163-337) x10^3/uL MPV 11.2 (9.4-12.4) fL Gran % 60.3 (34.0-67.9) % Immature Gran % (Auto) 0.2 (0.001-0.429) % Nucleat RBC Rel Count 0.0 (0.00-0.2) % Eos # (Auto) 0.21 (0.04-0.54) x10^3/uL Immature Gran # (Auto) 0.01 (0.001-0.031) x10^3u/L Absolute Lymphs (auto) 1.75 (1.32-3.57) x10^3/uL Absolute Monos (auto) 0.53 (0.30-0.82) x10^3/uL Absolute Nucleated RBC 0.00 (0.00-0.012) x10^3u/L Lymphocytes % 27.2 (21.8-53.1) % Monocytes % 8.2 (5.3-12.2) % Eosinophils % 3.3 (0.8-7.0) % Basophils % 0.8 (0.2-1.2) % Absolute Granulocytes 3.89 (1.78-5.38) x10^3/uL Basophils # 0.05 (0.01-0.08) x10^3/uL Sodium (135-145) mmol/L Potassium (3.5-5.1) mmol/L Chloride (98-107) mmol/L Carbon Dioxide (22-30) mmol/L Anion Gap (5-15) MEQ/L BUN (9-20) mg/dL Creatinine (0.66-1.25) mg/dL Estimated GFR ML/MIN Glucose (74-106) mg/dL POC Glucometer 137 H 108 H (74 to 106) mg/dL Lactic Acid (0.4-2.0) Calcium (8.4-10.2) mg/dL Total Bilirubin (0.2-1.3) mg/dL AST (17-59) U/L ALT (0-50) U/L Alkaline Phosphatase (38-126) U/L Serum Total Protein (6.3-8.2) g/dL Albumin (3.5-5.0) g/dL 04/09/24 04/09/24 04/09/24 Range/Units 09:15 09:25 10:55 WBC (4.23-9.07) x10^3/uL RBC (4.63-6.08) x10^6/uL Hgb (13.7-17.5) g/dL Hct (40.1-51.0) % MCV (79.0-92.2) fL MCH (25.7-32.2) pg MCHC (32.3-36.5) g/dL RDW (11.6-14.4) % Plt Count (163-337) x10^3/uL MPV (9.4-12.4) fL Gran % (34.0-67.9) % Immature Gran % (Auto) (0.001-0.429) % Nucleat RBC Rel Count (0.00-0.2) % Eos # (Auto) (0.04-0.54) x10^3/uL Immature Gran # (Auto) (0.001-0.031) x10^3u/L Absolute Lymphs (auto) (1.32-3.57) x10^3/uL Absolute Monos (auto) (0.30-0.82) x10^3/uL Absolute Nucleated RBC (0.00-0.012) x10^3u/L Lymphocytes % (21.8-53.1) % Monocytes % (5.3-12.2) % Eosinophils % (0.8-7.0) % Basophils % (0.2-1.2) % Absolute Granulocytes (1.78-5.38) x10^3/uL Basophils # (0.01-0.08) x10^3/uL Sodium 137 (135-145) mmol/L Potassium 4.0 (3.5-5.1) mmol/L Chloride 107 (98-107) mmol/L Carbon Dioxide 24 (22-30) mmol/L Anion Gap 10.3 (5-15) MEQ/L BUN 22 H (9-20) mg/dL Creatinine 1.10 (0.66-1.25) mg/dL Estimated GFR 75.0 ML/MIN Glucose 110 H (74-106) mg/dL POC Glucometer 104 (74 to 106) mg/dL Lactic Acid 1.2 (0.4-2.0) Calcium 9.4 (8.4-10.2) mg/dL Total Bilirubin 0.70 (0.2-1.3) mg/dL AST 18 (17-59) U/L ALT 15 (0-50) U/L Alkaline Phosphatase 62 (38-126) U/L Serum Total Protein 5.9 L (6.3-8.2) g/dL Albumin 3.5 (3.5-5.0) g/dL 04/09/24 04/09/24 04/09/24 Range/Units 14:02 14:25 14:25 WBC 5.8 (4.23-9.07) x10^3/uL RBC 3.03 L (4.63-6.08) x10^6/uL Hgb 8.9 L (13.7-17.5) g/dL Hct 26.5 L (40.1-51.0) % MCV 87.5 (79.0-92.2) fL MCH 29.4 (25.7-32.2) pg MCHC 33.6 (32.3-36.5) g/dL RDW 13.3 (11.6-14.4) % Plt Count 144 L (163-337) x10^3/uL MPV 11.0 (9.4-12.4) fL Gran % (34.0-67.9) % Immature Gran % (Auto) (0.001-0.429) % Nucleat RBC Rel Count (0.00-0.2) % Eos # (Auto) (0.04-0.54) x10^3/uL Immature Gran # (Auto) (0.001-0.031) x10^3u/L Absolute Lymphs (auto) (1.32-3.57) x10^3/uL Absolute Monos (auto) (0.30-0.82) x10^3/uL Absolute Nucleated RBC (0.00-0.012) x10^3u/L Lymphocytes % (21.8-53.1) % Monocytes % (5.3-12.2) % Eosinophils % (0.8-7.0) % Basophils % (0.2-1.2) % Absolute Granulocytes (1.78-5.38) x10^3/uL Basophils # (0.01-0.08) x10^3/uL Sodium 134 L (135-145) mmol/L Potassium 4.0 (3.5-5.1) mmol/L Chloride 106 (98-107) mmol/L Carbon Dioxide 23 (22-30) mmol/L Anion Gap 8.9 (5-15) MEQ/L BUN 20 (9-20) mg/dL Creatinine 1.02 (0.66-1.25) mg/dL Estimated GFR 82.1 ML/MIN Glucose 170 H (74-106) mg/dL POC Glucometer 154 H (74 to 106) mg/dL Lactic Acid (0.4-2.0) Calcium 9.0 (8.4-10.2) mg/dL Total Bilirubin 0.70 (0.2-1.3) mg/dL AST 17 (17-59) U/L ALT 13 (0-50) U/L Alkaline Phosphatase 60 (38-126) U/L Serum Total Protein 5.3 L (6.3-8.2) g/dL Albumin 3.1 L (3.5-5.0) g/dL 04/09/24 04/09/24 04/09/24 Range/Units 16:13 18:32 20:03 WBC (4.23-9.07) x10^3/uL RBC (4.63-6.08) x10^6/uL Hgb (13.7-17.5) g/dL Hct (40.1-51.0) % MCV (79.0-92.2) fL MCH (25.7-32.2) pg MCHC (32.3-36.5) g/dL RDW (11.6-14.4) % Plt Count (163-337) x10^3/uL MPV (9.4-12.4) fL Gran % (34.0-67.9) % Immature Gran % (Auto) (0.001-0.429) % Nucleat RBC Rel Count (0.00-0.2) % Eos # (Auto) (0.04-0.54) x10^3/uL Immature Gran # (Auto) (0.001-0.031) x10^3u/L Absolute Lymphs (auto) (1.32-3.57) x10^3/uL Absolute Monos (auto) (0.30-0.82) x10^3/uL Absolute Nucleated RBC (0.00-0.012) x10^3u/L Lymphocytes % (21.8-53.1) % Monocytes % (5.3-12.2) % Eosinophils % (0.8-7.0) % Basophils % (0.2-1.2) % Absolute Granulocytes (1.78-5.38) x10^3/uL Basophils # (0.01-0.08) x10^3/uL Sodium (135-145) mmol/L Potassium (3.5-5.1) mmol/L Chloride (98-107) mmol/L Carbon Dioxide (22-30) mmol/L Anion Gap (5-15) MEQ/L BUN (9-20) mg/dL Creatinine (0.66-1.25) mg/dL Estimated GFR ML/MIN Glucose (74-106) mg/dL POC Glucometer 236 H 272 H 244 H (74 to 106) mg/dL Lactic Acid (0.4-2.0) Calcium (8.4-10.2) mg/dL Total Bilirubin (0.2-1.3) mg/dL AST (17-59) U/L ALT (0-50) U/L Alkaline Phosphatase (38-126) U/L Serum Total Protein (6.3-8.2) g/dL Albumin (3.5-5.0) g/dL 04/09/24 04/09/24 04/10/24 Range/Units 21:54 23:40 02:06 WBC (4.23-9.07) x10^3/uL RBC (4.63-6.08) x10^6/uL Hgb (13.7-17.5) g/dL Hct (40.1-51.0) % MCV (79.0-92.2) fL MCH (25.7-32.2) pg MCHC (32.3-36.5) g/dL RDW (11.6-14.4) % Plt Count (163-337) x10^3/uL MPV (9.4-12.4) fL Gran % (34.0-67.9) % Immature Gran % (Auto) (0.001-0.429) % Nucleat RBC Rel Count (0.00-0.2) % Eos # (Auto) (0.04-0.54) x10^3/uL Immature Gran # (Auto) (0.001-0.031) x10^3u/L Absolute Lymphs (auto) (1.32-3.57) x10^3/uL Absolute Monos (auto) (0.30-0.82) x10^3/uL Absolute Nucleated RBC (0.00-0.012) x10^3u/L Lymphocytes % (21.8-53.1) % Monocytes % (5.3-12.2) % Eosinophils % (0.8-7.0) % Basophils % (0.2-1.2) % Absolute Granulocytes (1.78-5.38) x10^3/uL Basophils # (0.01-0.08) x10^3/uL Sodium (135-145) mmol/L Potassium (3.5-5.1) mmol/L Chloride (98-107) mmol/L Carbon Dioxide (22-30) mmol/L Anion Gap (5-15) MEQ/L BUN (9-20) mg/dL Creatinine (0.66-1.25) mg/dL Estimated GFR ML/MIN Glucose (74-106) mg/dL POC Glucometer 169 H 122 H 121 H (74 to 106) mg/dL Lactic Acid (0.4-2.0) Calcium (8.4-10.2) mg/dL Total Bilirubin (0.2-1.3) mg/dL AST (17-59) U/L ALT (0-50) U/L Alkaline Phosphatase (38-126) U/L Serum Total Protein (6.3-8.2) g/dL Albumin (3.5-5.0) g/dL 04/10/24 04/10/24 04/10/24 Range/Units 04:09 04:20 04:20 WBC 5.7 (4.23-9.07) x10^3/uL RBC 3.01 L (4.63-6.08) x10^6/uL Hgb 8.8 L (13.7-17.5) g/dL Hct 26.2 L (40.1-51.0) % MCV 87.0 (79.0-92.2) fL MCH 29.2 (25.7-32.2) pg MCHC 33.6 (32.3-36.5) g/dL RDW 13.2 (11.6-14.4) % Plt Count 153 L (163-337) x10^3/uL MPV 12.0 (9.4-12.4) fL Gran % (34.0-67.9) % Immature Gran % (Auto) (0.001-0.429) % Nucleat RBC Rel Count (0.00-0.2) % Eos # (Auto) (0.04-0.54) x10^3/uL Immature Gran # (Auto) (0.001-0.031) x10^3u/L Absolute Lymphs (auto) (1.32-3.57) x10^3/uL Absolute Monos (auto) (0.30-0.82) x10^3/uL Absolute Nucleated RBC (0.00-0.012) x10^3u/L Lymphocytes % (21.8-53.1) % Monocytes % (5.3-12.2) % Eosinophils % (0.8-7.0) % Basophils % (0.2-1.2) % Absolute Granulocytes (1.78-5.38) x10^3/uL Basophils # (0.01-0.08) x10^3/uL Sodium 135 (135-145) mmol/L Potassium 3.8 (3.5-5.1) mmol/L Chloride 108 H (98-107) mmol/L Carbon Dioxide 24 (22-30) mmol/L Anion Gap 7.2 (5-15) MEQ/L BUN 17 (9-20) mg/dL Creatinine 0.94 (0.66-1.25) mg/dL Estimated GFR 90.5 ML/MIN Glucose 140 H (74-106) mg/dL POC Glucometer 135 H (74 to 106) mg/dL Lactic Acid (0.4-2.0) Calcium 8.8 (8.4-10.2) mg/dL Total Bilirubin 0.70 (0.2-1.3) mg/dL AST 17 (17-59) U/L ALT 12 (0-50) U/L Alkaline Phosphatase 59 (38-126) U/L Serum Total Protein 5.3 L (6.3-8.2) g/dL Albumin 3.0 L (3.5-5.0) g/dL Radiology Exams: Radiology Procedures Category Date Time Status CHEST 1 VIEW (PORTABLE) Stat Exams 04/08/24 18:08 Completed FOOT (MINIMUM 3 VIEWS) Routine Exams 04/09/24 10:56 Completed FOOT (MINIMUM 3 VIEWS) Routine Exams 04/09/24 10:57 Completed HEAD WITHOUT CONTRAST [CT] Stat Exams 04/08/24 16:13 Completed MRI LOWER EXT W/O CONTRAST [MRI] Routine Exams 04/10/24 13:00 Ordered MRI LOWER EXT W/O CONTRAST [MRI] Routine Exams 04/10/24 13:01 Ordered <SAIDA MOON - Last Filed: 04/10/24 14:16> Vital Signs: Vital Signs - 24 hr Temp Pulse Resp BP Pulse Ox 04/10/24 19:00 98.3 F 67 16 151/74 97 04/10/24 15:30 97.6 F 72 17 169/79 97 04/10/24 15:15 97.7 F 71 17 154/73 96 04/10/24 13:40 97.4 F 77 17 156/73 97 04/10/24 12:00 97.4 F 77 17 156/73 97 04/10/24 08:00 98.3 F 69 17 177/84 98 04/10/24 04:00 94 L 04/09/24 23:51 98.9 F 72 18 162/82 96 Pain Assessment - Last Documented Pain Intensity 7 Pain Scale Used 0-10 Pain Scale Intake and Output: Intake & Output 04/08/24 04/09/24 04/10/24 04/11/24 11:59 11:59 11:59 11:59 Intake Total 380 971 120 Output Total 550 200 Balance 380 421 -80 Weight 77.9 kg 77 kg 77 kg Lab Results: Lab Results-Last 24 Hours 04/09/24 04/10/24 04/10/24 Range/Units 23:40 02:06 04:09 WBC (4.23-9.07) x10^3/uL RBC (4.63-6.08) x10^6/uL Hgb (13.7-17.5) g/dL Hct (40.1-51.0) % MCV (79.0-92.2) fL MCH (25.7-32.2) pg MCHC (32.3-36.5) g/dL RDW (11.6-14.4) % Plt Count (163-337) x10^3/uL MPV (9.4-12.4) fL Sodium (135-145) mmol/L Potassium (3.5-5.1) mmol/L Chloride (98-107) mmol/L Carbon Dioxide (22-30) mmol/L Anion Gap (5-15) MEQ/L BUN (9-20) mg/dL Creatinine (0.66-1.25) mg/dL Estimated GFR ML/MIN Glucose (74-106) mg/dL POC Glucometer 122 H 121 H 135 H (74 to 106) mg/dL Calcium (8.4-10.2) mg/dL Total Bilirubin (0.2-1.3) mg/dL AST (17-59) U/L ALT (0-50) U/L Alkaline Phosphatase (38-126) U/L Serum Total Protein (6.3-8.2) g/dL Albumin (3.5-5.0) g/dL 04/10/24 04/10/24 04/10/24 Range/Units 04:20 04:20 05:51 WBC 5.7 (4.23-9.07) x10^3/uL RBC 3.01 L (4.63-6.08) x10^6/uL Hgb 8.8 L (13.7-17.5) g/dL Hct 26.2 L (40.1-51.0) % MCV 87.0 (79.0-92.2) fL MCH 29.2 (25.7-32.2) pg MCHC 33.6 (32.3-36.5) g/dL RDW 13.2 (11.6-14.4) % Plt Count 153 L (163-337) x10^3/uL MPV 12.0 (9.4-12.4) fL Sodium 135 (135-145) mmol/L Potassium 3.8 (3.5-5.1) mmol/L Chloride 108 H (98-107) mmol/L Carbon Dioxide 24 (22-30) mmol/L Anion Gap 7.2 (5-15) MEQ/L BUN 17 (9-20) mg/dL Creatinine 0.94 (0.66-1.25) mg/dL Estimated GFR 90.5 ML/MIN Glucose 140 H (74-106) mg/dL POC Glucometer 172 H (74 to 106) mg/dL Calcium 8.8 (8.4-10.2) mg/dL Total Bilirubin 0.70 (0.2-1.3) mg/dL AST 17 (17-59) U/L ALT 12 (0-50) U/L Alkaline Phosphatase 59 (38-126) U/L Serum Total Protein 5.3 L (6.3-8.2) g/dL Albumin 3.0 L (3.5-5.0) g/dL 04/10/24 04/10/24 04/10/24 Range/Units 08:08 10:05 12:47 WBC (4.23-9.07) x10^3/uL RBC (4.63-6.08) x10^6/uL Hgb (13.7-17.5) g/dL Hct (40.1-51.0) % MCV (79.0-92.2) fL MCH (25.7-32.2) pg MCHC (32.3-36.5) g/dL RDW (11.6-14.4) % Plt Count (163-337) x10^3/uL MPV (9.4-12.4) fL Sodium (135-145) mmol/L Potassium (3.5-5.1) mmol/L Chloride (98-107) mmol/L Carbon Dioxide (22-30) mmol/L Anion Gap (5-15) MEQ/L BUN (9-20) mg/dL Creatinine (0.66-1.25) mg/dL Estimated GFR ML/MIN Glucose (74-106) mg/dL POC Glucometer 225 H 202 H 297 H (74 to 106) mg/dL Calcium (8.4-10.2) mg/dL Total Bilirubin (0.2-1.3) mg/dL AST (17-59) U/L ALT (0-50) U/L Alkaline Phosphatase (38-126) U/L Serum Total Protein (6.3-8.2) g/dL Albumin (3.5-5.0) g/dL 04/10/24 04/10/24 Range/Units 16:38 21:55 WBC (4.23-9.07) x10^3/uL RBC (4.63-6.08) x10^6/uL Hgb (13.7-17.5) g/dL Hct (40.1-51.0) % MCV (79.0-92.2) fL MCH (25.7-32.2) pg MCHC (32.3-36.5) g/dL RDW (11.6-14.4) % Plt Count (163-337) x10^3/uL MPV (9.4-12.4) fL Sodium (135-145) mmol/L Potassium (3.5-5.1) mmol/L Chloride (98-107) mmol/L Carbon Dioxide (22-30) mmol/L Anion Gap (5-15) MEQ/L BUN (9-20) mg/dL Creatinine (0.66-1.25) mg/dL Estimated GFR ML/MIN Glucose (74-106) mg/dL POC Glucometer 277 H 150 H (74 to 106) mg/dL Calcium (8.4-10.2) mg/dL Total Bilirubin (0.2-1.3) mg/dL AST (17-59) U/L ALT (0-50) U/L Alkaline Phosphatase (38-126) U/L Serum Total Protein (6.3-8.2) g/dL Albumin (3.5-5.0) g/dL Radiology Exams: Radiology Procedures Category Date Time Status FOOT (MINIMUM 3 VIEWS) Routine Exams 04/09/24 10:56 Completed FOOT (MINIMUM 3 VIEWS) Routine Exams 04/09/24 10:57 Completed MRI LOWER EXT W/O CONTRAST [MRI] Routine Exams 04/10/24 13:00 Completed MRI LOWER EXT W/O CONTRAST [MRI] Routine Exams 04/10/24 13:01 Completed <ALINA ECHEVERRIA - Last Filed: 04/10/24 22:43> Assessment/Plan (1) Hypoglycemia Current Visit: Yes Status: Acute Assessment & Plan: -Lantus held -SSI -Accuchecks Q4H -Multiple admissions for uncontrolled blood glucose levels - would benefit from a dexcom/insulin pump (closed loop system) and specialty care with endocrinology - appt made with Dr. Sutton 05/01/24 Code(s): E16.2 - HYPOGLYCEMIA, UNSPECIFIED (2) Altered mental status Current Visit: Yes Status: Acute Assessment & Plan: -secondary to hypoglycemia - now at baseline mentation -No acute findings on head CT Code(s): R41.82 - ALTERED MENTAL STATUS, UNSPECIFIED (3) Lactic acidosis due to diabetes mellitus Current Visit: Yes Status: Acute Assessment & Plan: -Initial LA at 2.1, repeat now WNL at 1.2 -Continue gentle hydration Code(s): E11.10 - TYPE 2 DIABETES MELLITUS WITH KETOACIDOSIS WITHOUT COMA (4) Toe abrasion Current Visit: Yes Status: Acute Assessment & Plan: -small dried scab on interior aspect of top of right big toe - Podiatry consulted - plan for surgical intervention of right 2nd metatarsal -MRI right ext showing Nonspecific plantar subcutaneous soft tissue swelling/edema. Subtle T2 bone edema signal distal 1st phalanx. Inflammatory/infectious process not completely excluded in the right clinical setting. -MRI left ext showing Impression: 1. Soft tissue swelling/edema visualized forefoot and toes. Rule out cellulitis. 2. Bone edema signal 2nd-5th toes as detailed. Rule out osteomyelitis. 3. 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 Also 2nd MTP degenerative changes, reactive periosteal thickening 2nd metatarsal, and indeterminant 5 mm navicular sclerotic lesion. -BC x 2 pending- follow - XR BL feet with no acute findings - Levaquin stopped -Merrem started - DC Merrem - start vanc/cefepime due to osteomyelitis on MRI - Code(s): S90.416A - ABRASION, UNSPECIFIED LESSER TOE(S), INITIAL ENCOUNTER (5) Fever Current Visit: Yes Status: Resolved Assessment & Plan: -No known source of infection - Tmax at 102.1 - no fever x 24 hours - -WBC wnl -CXR/ UA with no acute findings -MRI of right foot consistent with osteomyelitis- plan for surgical intervention of right 2nd metatarsal -Merrem discontinued, start vanc/cefepime VTE: Lovenox PPI: Protonix Next of KIN: Spouse- Minal Bishop- [phone] D/C plan: 1-2 days Code status: Full Code(s): R50.9 - FEVER, UNSPECIFIED (6) Osteomyelitis Current Visit: Yes Status: Acute Assessment & Plan: -see toe abrasion Code(s): M86.9 - OSTEOMYELITIS, UNSPECIFIED <SAIDA MOON - Last Filed: 04/10/24 14:16> PRASANNA Encounter - PRASANNA Encounter Attestation PRASANNA Encounter Attestation: "GARETH Del Castillo andhavediscussed pertinent aspects of their care with Saida Pearson agree with the history, physical exam (any modifications based on my personal exam will be noted below), assessment, and plan as outlined in original note. Please see immediately below for my summary of findings and additional assessment and plan along with any meaningful corrections/explanations to the Subjective/Objective portions of the PRASANNA note will be noted." My portion of the encounter took place via telemedicine. <ALINA ECHEVERRIA - Last Filed: 04/10/24 22:43>
[2024-04-10] MEDS ORDERED: Nystatin SUSPENSION 60 ML PO SCH (10:00)
[2024-04-10] MEDS: PHARMACY DOSING REQUEST MC ONE ×2 (12:20→14:34)
--- NOTE | 2024-04-10 12:52 | XRAY ---
Indication: Osteomyelitis. Sagittal, coronal, and axial MRI left forefoot performed without contrast using T1, T2, and STIR sequences. Comparison: None Visualized forefoot demonstrates mild deep soft tissue swelling/edema, especially 3rd-5th toes. Lack of IV contrast precludes further characterization. No focal solid/cystic soft tissue mass or abnormal fluid collection. Total amputation great toe and partial amputation mid to distal 3rd toe. There is bone edema signal seen of the remaining proximal 3rd toe and mid to distal 2nd/4th/5th toes. Elsewhere there is moderate 2nd MTP degenerative changes. Incidental reactive periosteal thickening mid to distal 2nd metatarsal. Lateral aspect navicular bone demonstrates 5 mm indeterminant sclerotic lesion. No suspicious bony lesions. Impression: 1. Soft tissue swelling/edema visualized forefoot and toes. Rule out cellulitis. 2. Bone edema signal 2nd-5th toes as detailed. Rule out osteomyelitis. 3. 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 Also 2nd MTP degenerative changes, reactive periosteal thickening 2nd metatarsal, and indeterminant 5 mm navicular sclerotic lesion.
--- NOTE | 2024-04-10 13:02 | XRAY ---
Indication: Osteomyelitis. 1st toe nodule. Sagittal, coronal, and axial MRI right forefoot performed without contrast using T1, T2, and STIR sequences. Comparison: None Visualized right forefoot and toes demonstrates mild plantar subcutaneous soft tissue swelling/edema, greatest extent proximal 5th toe. Lack of IV contrast precludes further characterization. No focal solid/cystic soft tissue mass or abnormal fluid collection. Distal 1st phalanx demonstrates subtle diffuse T2 edema signal. Elsewhere no acute fracture, suspicious bony lesions, or abnormal bone marrow signal. Impression: Nonspecific plantar subcutaneous soft tissue swelling/edema. Subtle T2 bone edema signal distal 1st phalanx. Inflammatory/infectious process not completely excluded in the right clinical setting.
[2024-04-10] MEDS: Diflucan 100 MG PO SCH (13:50)
[2024-04-10] MEDS ORDERED: Xylocaine 1% Vial 30 ML PF IJ ONE (13:53)
[2024-04-10] MEDS ORDERED: Marcaine Mpf 0.5% Vial 30 Ml ONE (13:53)
[2024-04-10] MEDS ORDERED: VANCOCIN INJECTION IV ONE (14:43)
[2024-04-10] MEDS: Maxipime 2 GM** 2 G in Dextrose 5%/Water IV Soln. 100ML PLUS BAG 100 ML IV SCH ×2 (15:39→22:01)
[2024-04-10] MEDS ORDERED: NORCO 5/325 MG PO PRN (16:10)
[2024-04-10] MEDS: Lantus Insulin SQ SCH (16:18)
[2024-04-10] MEDS: VANCOMYCIN 1 GRAM/200 ML BAG 1 GM/200 ML PIGGYBACK IV SCH (16:18)
[2024-04-10] MEDS: ULTRAM 50 MG PO PRN (18:00)
[2024-04-10] MEDS: TYLENOL 325 MG PO PRN (22:05)
[2024-04-11] MEDS: ZYVOX PO SCH (00:35)
[2024-04-11 04:50] LABS: Absolute Neutrophil Ct (ANC) 4.37 x10^3/uL (1.78-5.38); BASOPHIL % 0.9 % (0.2-1.2); Basophil (Absolute #) 0.06 x10^3/uL (0.01-0.08); Eosinophil % 3.5 % (0.8-7.0); Eosinophil (Absolute #) 0.24 x10^3/uL (0.04-0.54); Hematocrit 28.4 % (40.1-51.0); Hemoglobin 9.8 g/dL (13.7-17.5); IMMATURE GRAN # 0.02 x10^3u/L (0.001-0.031); IMMATURE GRAN % 0.3 % (0.001-0.429); Lymphocyte (Absolute #) 1.59 x10^3/uL (1.32-3.57); Lymphocytes % 22.9 % (21.8-53.1); Mean Cell Volume 84.8 fL (79.0-92.2); Mean Corpuscular Hemoglobin 29.3 pg (25.7-32.2); Mean Corpuscular Hgb Concent. 34.5 g/dL (32.3-36.5); Mean Platelet Volume 12.1 fL (9.4-12.4); Monocyte (Absolute #) 0.65 x10^3/uL (0.30-0.82); Monocytes % 9.4 % (5.3-12.2); Platelet Count 194 x10^3/uL (163-337); Red Blood Count 3.35 x10^6/uL (4.63-6.08); Red Cell Distribution Width 13.6 % (11.6-14.4); White Blood Count 6.9 x10^3/uL (4.23-9.07)
[2024-04-11 05:12] VITALS: RESP 16
[2024-04-11 05:21] LABS: ALBUMIN 3.5 g/dL (3.5-5.0); BILIRUBIN,TOTAL 0.9 mg/dL (0.2-1.3); Calcium 9.3 mg/dL (8.4-10.2); Creatinine 1 0.91 mg/dL (0.66-1.25); EST GLOMERULAR FILTRATION RATE 94.1 ML/MIN; Potassium 3.8 mmol/L (3.5-5.1)
--- NOTE | 2024-04-11 05:28 | PCM.DS ---
Discharge Summary Date of Admission: 04/08/24 20:05 Date of Discharge: 04/11/24 Admitting Physician: AYESHA PFEIFFER MD Consults: Consults on Case 04/08/24 20:23 Consult Podiatry ROUTINE 04/09/24 10:36 Nutritional Consult ROUTINE Primary Care Provider: RUSTY ORTIZ Allergies Allergies codeine Adverse Reaction (Severe, Verified 04/01/24 19:23) Vomiting hydrocodone bitartrate [From Vicodin] Adverse Reaction (Severe, Verified 04/01/24 19:23) Vomiting propoxyphene [From Darvocet-N 100] Adverse Reaction (Verified 04/01/24 19:23) Hospital Summary - Hospital Course Hospital Course: is a 63 year old male with diabetes, HTN, seizure disorder and recurrent episodes of DKA admitted (most recently 04/01-04/02/24 where he decided to leave AMA as well as admission to [facility] for hypoglycemia - discharged 04/06/24) admitted 04/08/24 with encephalopathy due to to hypoglycemia after experiencing low blood sugars in the 30-40s at the store and passed out. Upon arrival, he was found to have low blood sugars in the 30s-40s despite several amps of D50. His initial labs were notable for an elevated creatinine of 1.5, and was started on IVFs. He initially had a low grade temp that increased up to 102 with no known cause. He was started on empiric antibiotic with Levaquin. Notably CXR and head CT have been negative for acute concern. UA also negative. Podiatry consulted in ER by physician has he has a small dried scab on interior aspect of top of right big toe. It has no erythema, edema, or pain. 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 His PCP Dr. Wells came in to see pt today and asked that antibiotic be changed to Merrem as he has had episodes of hyperglycemia and hypoglycemia with Levaquin in the past. He also wanted blood sugars checked more often, he already is having them checked Q2 hours and will leave it at this. He also requested that IVF be restarted- NS started at 50ml/hr. 04/10/24: Met with patient and spouse bedside. No fever x 24 hours. Blood sugars stable. Patient endorses poor appetite due to food "not tasting right." He reports recent thrush. Upon oral exam, white patches noted. Nystatin on backorder- will have pharmacy to dose difflucan. MRI of RLE showing soft tissue swelling/edema visualized forefoot and toes. Bone edema signal 2nd-5th toes as detailed. Rule out osteomyelitis. 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 Also 2nd MTP degenerative changes, reactive periosteal thickening 2nd metatarsal, and indeterminant 5 mm navicular sclerotic lesion. Podiatry following and patient to have resection to 2nd metatarsal today. Will change antibiotics to vanc/cefepime and discharge tomorrow on Cipro/doxy per podiatry with follow up. Long discussion had with patient and spouse regarding the importance of good glycemic control- patient agreeable to appointment with Dr. Menjivar (endocrinology) -scheduled for May 01, 2024. 04/11: Labs and vitals stable. No further instances of hypoglycemia. Discussed the importance of good glycemic control and testing blood glucose levels at home. Patient to continue diflucan for oral thrush - this most likely will aid in improving oral consumption. Will discharge home on Cipro/doxy combo per podiatry with close OP follow up with pending cultures. Patient anxious for discharge and agreeable to plan. Will try to get Dexcom prior to his discharge today. Discharge Note New Diagnosis: Osteomyelitis/hypoglycemia New Medications: cipro/doxy -lantus changed to 30 units Follow Up: PCP/ Podiatry Results pending: biopsy 2nd metatarsal Latest Assessment & Plan (1) Hypoglycemia Current Visit: Yes Status: Acute Assessment & Plan: -Lantus reduced to 34 units -SSI - low dose -Poor appetite contributing due to thrush - difflucan started -Accuchecks Q4H -Multiple admissions for uncontrolled blood glucose levels - would benefit from a dexcom/insulin pump (closed loop system) and specialty care with endocrinology - appt made with Dr. Menjivar 05/01/24 Code(s): E16.2 - HYPOGLYCEMIA, UNSPECIFIED (2) Altered mental status Current Visit: Yes Status: Acute Assessment & Plan: -secondary to hypoglycemia - now at baseline mentation -No acute findings on head CT Code(s): R41.82 - ALTERED MENTAL STATUS, UNSPECIFIED (3) Lactic acidosis due to diabetes mellitus Current Visit: Yes Status: Acute Assessment & Plan: -Initial LA at 2.1, repeat now WNL at 1.2 -Continue gentle hydration Code(s): E11.10 - TYPE 2 DIABETES MELLITUS WITH KETOACIDOSIS WITHOUT COMA (4) Toe abrasion Current Visit: Yes Status: Acute Assessment & Plan: -small dried scab on interior aspect of top of right big toe - Podiatry consulted - plan for surgical intervention of right 2nd metatarsal -MRI right ext showing Nonspecific plantar subcutaneous soft tissue swelling/edema. Subtle T2 bone edema signal distal 1st phalanx. Inflammatory/infectious process not completely excluded in the right clinical setting. -MRI left ext showing Impression: 1. Soft tissue swelling/edema visualized forefoot and toes. Rule out cellulitis. 2. Bone edema signal 2nd-5th toes as detailed. Rule out osteomyelitis. 3. 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 Also 2nd MTP degenerative changes, reactive periosteal thickening 2nd metatarsal, and indeterminant 5 mm navicular sclerotic lesion. -BC x 2 pending- follow - XR BL feet with no acute findings - Levaquin stopped -Merrem started - DC Merrem - start vanc/cefepime due to osteomyelitis on MRI -plan for discharge with cipro/ doxycycline Code(s): S90.416A - ABRASION, UNSPECIFIED LESSER TOE(S), INITIAL ENCOUNTER (5) Fever Current Visit: Yes Status: Resolved Assessment & Plan: -No known source of infection - Tmax at 102.1 - no fever x 24 hours - -WBC wnl -CXR/ UA with no acute findings -MRI of right foot consistent with osteomyelitis- plan for surgical intervention of right 2nd metatarsal -Merrem discontinued, start vanc/cefepime I spent 35 minutes [id number] with the patient on the day of discharge performing discharge exam, discussing hospital stay and discharge instructions with patient and caregivers, preparation of discharge records, prescriptions & referral forms and addressing any questions/concerns the patient had as documented above. - Vitals & Intake/Output Vital Signs: Vital Signs Temperature 97.4 F 04/11/24 03:00 Pulse Rate 73 04/11/24 03:00 Respiratory Rate 16 04/11/24 03:00 Blood Pressure 128/77 04/11/24 03:00 O2 Sat by Pulse Oximetry 94 L 04/11/24 03:00 Intake & Output: Intake & Output 04/08/24 04/09/24 04/10/24 04/11/24 11:59 11:59 11:59 11:59 Intake Total 380 971 240 Output Total 550 500 Balance 380 421 -260 Weight 77.9 kg 77 kg 77 kg - Lab Result Diagrams: 04/11/24 04:19 04/11/24 04:19 Lab Results-Last 24 Hrs: Lab Results-Last 24 Hours 04/10/24 04/10/24 04/10/24 Range/Units 04:20 05:51 08:08 Sodium 135 (135-145) mmol/L Potassium 3.8 (3.5-5.1) mmol/L Chloride 108 H (98-107) mmol/L Carbon Dioxide 24 (22-30) mmol/L Anion Gap 7.2 (5-15) MEQ/L BUN 17 (9-20) mg/dL Creatinine 0.94 (0.66-1.25) mg/dL Estimated GFR 90.5 ML/MIN Glucose 140 H (74-106) mg/dL POC Glucometer 172 H 225 H (74 to 106) mg/dL Calcium 8.8 (8.4-10.2) mg/dL Total Bilirubin 0.70 (0.2-1.3) mg/dL AST 17 (17-59) U/L ALT 12 (0-50) U/L Alkaline Phosphatase 59 (38-126) U/L Serum Total Protein 5.3 L (6.3-8.2) g/dL Albumin 3.0 L (3.5-5.0) g/dL 04/10/24 04/10/24 04/10/24 Range/Units 10:05 12:47 16:38 Sodium (135-145) mmol/L Potassium (3.5-5.1) mmol/L Chloride (98-107) mmol/L Carbon Dioxide (22-30) mmol/L Anion Gap (5-15) MEQ/L BUN (9-20) mg/dL Creatinine (0.66-1.25) mg/dL Estimated GFR ML/MIN Glucose (74-106) mg/dL POC Glucometer 202 H 297 H 277 H (74 to 106) mg/dL Calcium (8.4-10.2) mg/dL Total Bilirubin (0.2-1.3) mg/dL AST (17-59) U/L ALT (0-50) U/L Alkaline Phosphatase (38-126) U/L Serum Total Protein (6.3-8.2) g/dL Albumin (3.5-5.0) g/dL 04/10/24 Range/Units 21:55 Sodium (135-145) mmol/L Potassium (3.5-5.1) mmol/L Chloride (98-107) mmol/L Carbon Dioxide (22-30) mmol/L Anion Gap (5-15) MEQ/L BUN (9-20) mg/dL Creatinine (0.66-1.25) mg/dL Estimated GFR ML/MIN Glucose (74-106) mg/dL POC Glucometer 150 H (74 to 106) mg/dL Calcium (8.4-10.2) mg/dL Total Bilirubin (0.2-1.3) mg/dL AST (17-59) U/L ALT (0-50) U/L Alkaline Phosphatase (38-126) U/L Serum Total Protein (6.3-8.2) g/dL Albumin (3.5-5.0) g/dL Micro Results-Entire Visit: Microbiology 04/10/24 16:51 Yeast/Fungus Susceptibility - Final Metatarsal - 2nd Left Not Reportable 04/08/24 18:15 Urine Culture - Final Catherized NO GROWTH Accuchecks Date 04/10/24 Date 04/10/24 Date 04/10/24 Date 04/10/24 Date 04/10/24 Time 17:40 Time 13:39 Time 10:08 Time 08:12 Time 06:00 - Radiology Exams Ordered Rad Exams-Entire Visit: Radiology Procedures Category Date Time Status FOOT (MINIMUM 3 VIEWS) Routine Exams 04/09/24 10:56 Completed FOOT (MINIMUM 3 VIEWS) Routine Exams 04/09/24 10:57 Completed MRI LOWER EXT W/O CONTRAST [MRI] Routine Exams 04/10/24 13:00 Completed MRI LOWER EXT W/O CONTRAST [MRI] Routine Exams 04/10/24 13:01 Completed Discharge Exam General Appearance: no apparent distress Neurologic Exam: alert, oriented x 3, cooperative Eye Exam: PERRL Ears, Nose, Throat Exam: normal ENT inspection Neck Exam: normal inspection Respiratory Exam: normal breath sounds, lungs clear Cardiovascular Exam: regular rate/rhythm, normal heart sounds Gastrointestinal/Abdomen Exam: soft, normal bowel sounds Male Genitalia Exam: deferred Rectal Exam: deferred Back Exam: normal inspection Extremity Exam: normal inspection, other (LLE) Skin Exam: normal color, other (RLE with surgical dressing CDI) Wound Assessment: Skin/Wound Assessment Wound/Incision Assessment Start: 04/10/24 18:03 Text: Status: Active Freq: Q6H Protocol: Document 04/11/24 02:00 MM (Rec: 04/11/24 02:06 MM [id number]) Wound/Incision Assessment Left Toe Wound Assessment Shift Assessment Wound Type Incision Wound Stage Non Pressure Wound Dressing Status Dry & Intact Drainage Amount None Comment Surgery report: Adaptic soaked in betadine, 4X4, kerlex, cast padding, javier wrap. Dressing remains C/D/I. Final Diagnosis/Problem List - Final Discharge Diagnosis/Problem (1) Hypoglycemia Current Visit: Yes Status: Acute Code(s): E16.2 - HYPOGLYCEMIA, UNSPECIFIED (2) Altered mental status Current Visit: Yes Status: Acute Code(s): R41.82 - ALTERED MENTAL STATUS, UNSPECIFIED (3) Lactic acidosis due to diabetes mellitus Current Visit: Yes Status: Acute Code(s): E11.10 - TYPE 2 DIABETES MELLITUS WITH KETOACIDOSIS WITHOUT COMA (4) Toe abrasion Current Visit: Yes Status: Acute Code(s): S90.416A - ABRASION, UNSPECIFIED LESSER TOE(S), INITIAL ENCOUNTER (5) Fever Current Visit: Yes Status: Resolved Code(s): R50.9 - FEVER, UNSPECIFIED (6) Osteomyelitis Current Visit: Yes Status: Acute Code(s): M86.9 - OSTEOMYELITIS, UNSPECIFIED (7) Thrush, oral Current Visit: Yes Status: Acute Code(s): B37.0 - CANDIDAL STOMATITIS - Discharge Disposition: Home, Self-Care Condition: Stable Prescriptions: New Fluconazole 100 mg [Diflucan 100 MG] 200 mg PO DAILY 7 Days #7 tablet Ciprofloxacin [Cipro 500 MG] 500 mg PO BID 10 Days #20 tablet Doxycycline Hyclate 100 mg [Vibramycin 100 MG] 100 mg PO BID 10 Days #20 tab Continue Gabapentin 600 mg PO TID Amlodipine Besylate [Norvasc] 10 mg PO DAILY Multivitamins,Therapeutic Tab* [Theragran Multivitamin] 1 tab PO DAILY Lisinopril 10 mg [Zestril 10 MG] 10 mg PO DAILY 30 Days #30 tablet Lactobacillus Acidophilus [Acidophilus TABLET] 1 tab PO DAILY 30 Days #30 tablet Insulin Lispro [Humalog Kwikpen U-100] 1 unit SQ ACHS HydrALAzine HCL 25 MG TAB [Apresoline 25 MG TABLET] 50 mg PO TID Atorvastatin Calcium 80 mg PO DAILY Changed Insulin Glargine [Lantus Insulin] 30 units SQ QAM #0 Instructions: Low blood sugar in people with diabetes Follow up with: VIJI MENJIVAR [NON-STAFF PHY W/O PRIVILEGES] - 05/01/24 10:00 am ([address] [place] [address] [facility], close to [facility] ) RUSTY ORTIZ MD [Primary Care Provider] -
[2024-04-11 07:41] VITALS: BP 152/72; PULSE 76; TEMP 98.4; O2SAT 96
[2024-04-11] MEDS ORDERED: Diflucan 100 MG PO SCH (10:00)
[2024-04-11] MEDS ORDERED: TROUGH DRUG LEVELS IJ ONE (21:30)
--- NOTE | 2024-04-19 23:02 | OP ---
SURGERY DATE/TIME: 04/18/2024 [id number] PREOPERATIVE DIAGNOSES: 1) Osteomyelitis, left foot. 2) Diabetic food ulcer. 3) Chronic foot infection. POSTOPERATIVE DIAGNOSES: 1) Osteomyelitis, left foot. 2) Diabetic food ulcer. 3) Chronic foot infection. PROCEDURE: Second metatarsal excision with bone debridement, left foot. SURGEON: Juan Mark DPM ANESTHESIA: Local. HEMOSTASIS: Pressure dressing. ESTIMATED BLOOD LOSS: Approximately 3 mL. MATERIALS: 4-0 Monocryl, 3-0 nylon. INJECTABLES: 20 mL of a 1:1 mixture of 1% Lidocaine plain and 0.5% bupivacaine plain. INDICATIONS: Eric is a very pleasant patient who is very well known to my service for amputation secondary to peripheral neuropathy as well as diabetes mellitus with bone infection. Patient has recently had an intervention with another provider resulting in a partial amputation with filet of toe flap to the third digit. The patient has been fairly labile with his blood sugar levels recently where he usually runs in the hyperglycemic episodes; however, he has been hypoglycemic with no changes in his regimen. Patient was having fevers on admission to the hospital with concerns of pain to the left foot. X-rays were taken demonstrating some changes to the second metatarsal head; however, looking to be degenerative. An MRI was then obtained demonstrating T2 uptake on T2 imaging as well as dropout of the metatarsal head on T1 imaging. This, in my eyes, was suspicious for potential bone infection potentially ceded by contiguous spread from the third digit. Patient was discharged from the hospital in [place] with no antibiotics which was concerning at the time of his presentation to the hospital. He was started on IV antibiotics and then we decided to proceed with partial second metatarsal head resection with bone debridement. Patient understands all risks, complications and benefits of the surgical intervention at this time including but not limited to infections, hematoma, seroma, possibility of delayed wound healing, non-wound healing and possible need for further surgical intervention at a later day. No guarantees were provided as to the outcome of surgical intervention at this time. Plenty of time was allowed for the patient as well as his to ask questions which were answered to their apparent satisfaction. It was at this time we decided to proceed. DESCRIPTION OF PROCEDURE AND FINDINGS: The patient was brought into the operating room and placed on the operating room table in the supine position. At this time, the left lower extremity was prepped and draped in the typical sterile fashion and lowered onto the surgical field. At this time, a block consisting of 20 mL of a 1:1 mixture of 1% Lidocaine plain and 0.5% bupivacaine plain was injected in a metatarsal block-type fashion. Following this, a sufficient amount of time was allowed for the block to take place to have effect. A linear incision was made over the dorsal aspect of the second metatarsal head ending just distal to the proximal phalanx. The extensor tendon then was retracted out of the surgical site and attention was directed to the second metatarsal head. On capsular dissection, there was some purulence as well as a softening of the metatarsal head that was encountered. This was cultured and the metatarsal head was then resected utilizing an 18 mm sagittal saw. This was removed utilizing towel clamp as well as dissection scissors. Following this, copious amounts of sterile saline by way of Pulsavac was utilized to flush the surgical site. The surgical site was then coapted utilizing 2-0 Vicryl and 3-0 nylon in a simple interrupted buried-type fashion as well as a horizontal mattress-type fashion for the surgical site closure. Following this, a dressing consisting of Betadine, Adaptic, 4 x 4, Kerlix, and Geoff was applied to patient's left lower extremity. The patient was then returned to the postoperative anesthesia care unit with vital signs stable and vascular status intact. The patient handled the anesthesia as well as the procedure without significant complication. Postoperative orders as indicated in the patient's discharge chart.
== END 2024-04-11 11:10 | disposition home or self-care (01) ==
LOC: ED 16:05 → MED SURG 20:05
PROVIDERS: ADMIT Internal Medicine Nephrology; ATTEND Internal Medicine Nephrology
DX: E11.649 Type 2 diabetes mellitus with hypoglycemia without coma (principal); R41.82 Altered mental status, unspecified; E11.10 Type 2 diabetes mellitus with ketoacidosis without coma; S90.416A Abrasion, unspecified lesser toe(s), initial encounter; R50.9 Fever, unspecified; M86.9 Osteomyelitis, unspecified; E11.628 Type 2 diabetes mellitus with other skin complications; E11.621 Type 2 diabetes mellitus with foot ulcer; L08.9 Local infection of the skin and subcutaneous tissue, unspecified; G62.9 Polyneuropathy, unspecified; I10 Essential (primary) hypertension; G40.909 Epilepsy, unspecified, not intractable, without status epilepticus; B37.0 Candidal stomatitis; Z91.148 Patient's other noncompliance with medication regimen for other reason; Z79.899 Other long term (current) drug therapy
CPT/HCPCS: 0241U; 28005; 28112; 36000; 36415; 70450; 71045; 73630; 73718; 80053; 80307; 81001; 82077; 82140; 82570; 82947; 83605; 83735; 84156; 84300; 85025; 85027; 87040; 87046; 87070; 87075; 87086; 87116; 87206; 93005; 93041; 93268; 94760; 96374; 96376; 99222; 99285; G0378; P9612; Q3014; 96372; J0692; J1650; J1817; J1956; J3370; A9270-GY

== ENCOUNTER 2025-01-01 13:08 | Emergency (ER) | payer MEDICARE ==
[2025-01-01] MEDS ORDERED: Sodium Chloride 0.9% 1000 ML 1,000 ML ONE (13:44)
--- NOTE | 2025-01-01 13:55 | ERPHSYRPT ---
- History of Present Illness Time Seen by Provider: 01/01/25 14:20 Source: patient Exam Limitations: no limitations Physician History: Patient is a 64-year-old male history of type 1 diabetes presents to our ED for evaluation of syncope. states that patient was feeling unwell yesterday. Patient had dinner. Patient went to sleep. Patient awoke this morning stating he felt unwell. checked his glucose and stated it was over 500. Patient had his morning Lantus. followed up with a dose of Humalog at approximately 6:30 AM. Glucose was checked later in the morning it was found to be north of 300. gave another 10 units of Humalog. Patient began to slur his words. was worried that he may have had a stroke. Patient was brought to our ED. Upon arrival to our ED patient had another syncopal episode. No fever reported. No seizure activity. No trauma. Patient symptoms are progressive. Symptoms are moderate in intensity. No specific worsening or improving factors. Patient voices no other complaints or concerns at this time. Portions of this note were created with voice recognition technology. There may be grammatical, spelling, punctuation or sound alike errors Timing/Duration: today Severity: moderate Modifying Factors: Improves With: nothing Associated Symptoms: denies symptoms Allergies/Adverse Reactions: codeine Adverse Reaction (Severe, Verified 01/01/25 14:36) Vomiting hydrocodone bitartrate [From Vicodin] Adverse Reaction (Severe, Verified 01/01/25 14:36) Vomiting propoxyphene [From Darvocet-N 100] Adverse Reaction (Verified 01/01/25 14:36) Home Medications: Gabapentin 600 mg PO TID 04/01/23 [History] Multivitamins,Therapeutic Tab* [Theragran Multivitamin] 1 tab PO DAILY 03/07/24 [History] Insulin Lispro [Humalog Kwikpen U-100] 1 unit SQ ACHS 04/01/24 [History] Atorvastatin Calcium 80 mg PO DAILY 04/09/24 [History] Primidone 50 MG [Mysoline 50Mg] 50 mg PO TID 01/01/25 [History] Semaglutide [Ozempic] 0.12 mg SQ WEEKLY 01/01/25 [History] Hx Tetanus, Diphtheria Vaccination/Date Given: Yes Hx Influenza Vaccination/Date Given: No Hx Pneumococcal Vaccination/Date Given: No Travel Risk - Emerging Infectious Disease Are you exhibiting symptoms associated with any current EIDs: Yes Symptoms: Fever, Headaches/Body Aches/ Comment: nausea - Review of Systems Constitutional: No Symptoms, No Fever, No Chills Eyes: No Symptoms Ears, Nose, & Throat: No Symptoms Respiratory: No Symptoms, No Cough, No Dyspnea Cardiac: No Symptoms, No Chest Pain, No Edema, No Syncope Abdominal/Gastrointestinal: No Symptoms, No Abdominal Pain, No Nausea, No Vomiting, No Diarrhea Genitourinary Symptoms: No Symptoms, No Dysuria Musculoskeletal: No Symptoms, No Back Pain, No Neck Pain Skin: No Symptoms, No Rash Neurological: No Symptoms, No Dizziness, No Focal Weakness, No Sensory Changes Psychological: No Symptoms Endocrine: No Symptoms Hematologic/Lymphatic: No Symptoms Immunological/Allergic: No Symptoms All Other Systems: Reviewed and Negative - Past Medical History Pertinent Past Medical History: Yes Neurological History: Seizures ENT History: No Pertinent History Cardiac History: No Pertinent History Respiratory History: No Pertinent History Endocrine Medical History: Diabetes Type II Musculoskeletal History: No Pertinent History GI Medical History: No Pertinent History History: No Pertinent History Psycho-Social History: No Pertinent History Male Reproductive Disorders: No Pertinent History Other Medical History: FX L LEG AND FOOT subsequent infection. gangrene, sepsis 2014 - Past Surgical History Past Surgical History: Yes Neuro Surgical History: No Pertinent History Cardiac: No Pertinent History Respiratory: No Pertinent History Gastrointestinal: Cholecystectomy, Hernia Repair Genitourinary: No Pertinent History Musculoskeletal: Orthopedic Surgery Male Surgical History: No Pertinent History Other Surgical History: right femur fixed at age 15. left foot broke at age 20. left leg and foot surgery ,,I&D of left foot, polyps removed - Social History Smoking Status: Never smoker How long have you smoked: 1 yr Exposure to second hand smoke: No Drug Use: none - Social Determinants of Health Will the patient participate in the screening: Yes Do you worry about a steady place to live?: No In the past 12 months,have you had to go without utilities?: No Transportation Issues: No Has anyone in your support network made you feel unsafe?: No Have you or anyone in your house had to go w/o enough food: No - Nursing Vital Signs Nursing Vital Signs: Initial Vital Signs O2 Sat by Pulse Oximetry 96 01/01/25 13:09 Pain Scale Pain Intensity 0 - Physical Exam General Appearance: no apparent distress, alert Eye Exam: PERRL/EOMI, eyes nml inspection Ears, Nose, Throat Exam: normal ENT inspection, TMs normal, pharynx normal, moist mucous membranes Neck Exam: normal inspection, non-tender, supple, full range of motion Respiratory Exam: normal breath sounds, lungs clear, No respiratory distress Cardiovascular Exam: regular rate/rhythm, normal heart sounds, normal peripheral pulses Gastrointestinal/Abdomen Exam: soft, normal bowel sounds, No tenderness, No mass Back Exam: normal inspection, normal range of motion, No CVA tenderness, No vertebral tenderness Extremity Exam: normal inspection, normal range of motion, pelvis stable Neurologic Exam: alert, oriented x 3, cooperative, normal mood/affect, nml cerebellar function, nml station & gait, sensation nml, No motor deficits Skin Exam: normal color, warm, dry, No rash Lymphatic Exam: No adenopathy SpO2 Interpretation: normal O2 Delivery: Room Air - Course Nursing assessment & vital signs reviewed: Yes EKG Interpreted by Me: RATE (73), Sinus Rhythm, NORMAL AXIS, NORMAL INTERVALS, NORMAL QRS - CT Exams Head CT Interpretation: Tele-radiologist Report (New remote lacunar infarct right basal ganglia) Ordered Tests: Active Orders 24 hr Category Date Time Status Research And Development Manager STAT Care 01/01/25 13:35 Active EKG-ER Only STAT Care 01/01/25 13:34 Completed IV Insertion STAT Care 01/01/25 13:34 Active Pulse Oximetry (ED) STAT Care 01/01/25 13:34 Active ABDOMEN AND PELVIS W/0 CONTRAS [CT] Stat Exams 01/01/25 15:00 Completed CHEST 1 VIEW (PORTABLE) Stat Exams 01/01/25 13:35 Completed HEAD WITHOUT CONTRAST [CT] Stat Exams 01/01/25 13:36 Completed BLOOD CULTURE Stat Lab 01/01/25 14:46 Received CBC W DIFF Stat Lab 01/01/25 14:42 Completed CMP Stat Lab 01/01/25 14:42 Completed D-DIMER QUANTITATIVE Stat Lab 01/01/25 14:42 Completed Lactic Acid Stat Lab 01/01/25 14:45 Completed MAGNESIUM Stat Lab 01/01/25 14:42 Completed NT PRO BNPII Stat Lab 01/01/25 14:42 Completed POCT GLUCOSE Stat Lab 01/01/25 14:30 Completed POCT GLUCOSE Stat Lab 01/01/25 16:03 Completed TROPONIN Q4H Lab 01/01/25 14:42 Completed TROPONIN Q4H Lab 01/01/25 18:33 Received TROPONIN Q4H Lab 01/01/25 21:45 Ordered UA W/RFX UR CULTURE Stat Lab 01/01/25 16:04 Completed Medication Summary Generic Name Dose Route Start Last Admin Trade Name Vickie PRN Reason Stop Dose Admin Sodium Chloride 1,000 mls @ 100 mls/hr 01/01/25 13:45 01/01/25 14:08 Sodium Chloride 0.9% 1000 Ml IV 01/31/25 13:44 100 mls/hr .Q10H AURA Administration Lactated Ringer's 1,000 mls @ 125 mls/hr 01/01/25 17:00 01/01/25 17:16 Lactated Ringers IV 01/31/25 16:59 125 mls/hr .Q8H AURA Administration Lab/Rad Data: Laboratory Result Diagrams 01/01/25 14:42 01/01/25 14:42 Laboratory Results 01/01/25 01/01/25 01/01/25 Range/Units 16:04 16:03 14:45 WBC (4.23-9.07) x10^3/uL RBC (4.63-6.08) x10^6/uL Hgb (13.7-17.5) g/dL Hct (40.1-51.0) % MCV (79.0-92.2) fL MCH (25.7-32.2) pg MCHC (32.3-36.5) g/dL RDW (11.6-14.4) % Plt Count (163-337) x10^3/uL MPV (9.4-12.4) fL Gran % (34.0-67.9) % Immature Gran % (Auto) (0.001-0.429) % Nucleat RBC Rel Count (0.00-0.2) % Eos # (Auto) (0.04-0.54) x10^3/uL Immature Gran # (Auto) (0.001-0.031) x10^3u/L Absolute Lymphs (auto) (1.32-3.57) x10^3/uL Absolute Monos (auto) (0.30-0.82) x10^3/uL Absolute Nucleated RBC (0.00-0.012) x10^3u/L Lymphocytes % (21.8-53.1) % Monocytes % (5.3-12.2) % Eosinophils % (0.8-7.0) % Basophils % (0.2-1.2) % Absolute Granulocytes (1.78-5.38) x10^3/uL Basophils # (0.01-0.08) x10^3/uL D-Dimer (0.0-0.50) mg/L Sodium (135-145) mmol/L Potassium (3.5-5.1) mmol/L Chloride (98-107) mmol/L Carbon Dioxide (22-30) mmol/L Anion Gap (5-15) MEQ/L BUN (9-20) mg/dL Creatinine (0.66-1.25) mg/dL Estimated GFR ML/MIN Glucose (74-106) mg/dL POC Glucometer 101 (74 to 106) mg/dL Lactic Acid 0.7 (0.4-2.0) Calcium (8.4-10.2) mg/dL Magnesium (1.6-2.3) mg/dL Total Bilirubin (0.2-1.3) mg/dL AST (17-59) U/L ALT (0-50) U/L Alkaline Phosphatase (38-126) U/L Troponin I (0.000-0.033) ng/mL NT-Pro-B Natriuret Pep (<300) pg/mL Serum Total Protein (6.3-8.2) g/dL Albumin (3.5-5.0) g/dL Urine Color Yellow (Yellow) Urine Appearance Clear (Clear) Urine pH 5.0 (4.6-8.0) Ur Specific [place] 1.025 (1.005-1.030) Urine Protein Negative (Negative) Urine Glucose (UA) >=1000 A (Negative) mg/dL Urine Ketones 15 A (Negative) Urine Blood Negative (Negative) Urine Nitrite Negative (Negative) Urine Bilirubin Negative (Negative) Urine Urobilinogen 0.2 (0.2) mg/dL Ur Leukocyte Esterase Negative (Negative) U Hyaline Cast (Auto) 3-5 A (0-2) /LPF Urine Microscopic RBC 0-2 (0-5) /HPF Urine Microscopic WBC 0-2 (0-5) /HPF Ur Epithelial Cells None Seen (None Seen) /HPF Urine Bacteria None Seen (None Seen) /HPF Urine Culture Reflexed NO (NO) 01/01/25 01/01/25 01/01/25 Range/Units 14:42 14:42 14:42 WBC (4.23-9.07) x10^3/uL RBC (4.63-6.08) x10^6/uL Hgb (13.7-17.5) g/dL Hct (40.1-51.0) % MCV (79.0-92.2) fL MCH (25.7-32.2) pg MCHC (32.3-36.5) g/dL RDW (11.6-14.4) % Plt Count (163-337) x10^3/uL MPV (9.4-12.4) fL Gran % (34.0-67.9) % Immature Gran % (Auto) (0.001-0.429) % Nucleat RBC Rel Count (0.00-0.2) % Eos # (Auto) (0.04-0.54) x10^3/uL Immature Gran # (Auto) (0.001-0.031) x10^3u/L Absolute Lymphs (auto) (1.32-3.57) x10^3/uL Absolute Monos (auto) (0.30-0.82) x10^3/uL Absolute Nucleated RBC (0.00-0.012) x10^3u/L Lymphocytes % (21.8-53.1) % Monocytes % (5.3-12.2) % Eosinophils % (0.8-7.0) % Basophils % (0.2-1.2) % Absolute Granulocytes (1.78-5.38) x10^3/uL Basophils # (0.01-0.08) x10^3/uL D-Dimer 0.39 (0.0-0.50) mg/L Sodium 138 (135-145) mmol/L Potassium 4.5 (3.5-5.1) mmol/L Chloride 102 (98-107) mmol/L Carbon Dioxide 12 L* (22-30) mmol/L Anion Gap 28.1 H (5-15) MEQ/L BUN 67 H (9-20) mg/dL Creatinine 3.10 H (0.66-1.25) mg/dL Estimated GFR 21.5 ML/MIN Glucose 113 H (74-106) mg/dL POC Glucometer (74 to 106) mg/dL Lactic Acid (0.4-2.0) Calcium 10.0 (8.4-10.2) mg/dL Magnesium 3.0 H (1.6-2.3) mg/dL Total Bilirubin 1.10 (0.2-1.3) mg/dL AST 22 (17-59) U/L ALT 24 (0-50) U/L Alkaline Phosphatase 98 (38-126) U/L Troponin I < 0.012 (0.000-0.033) ng/mL NT-Pro-B Natriuret Pep 191 (<300) pg/mL Serum Total Protein 7.1 (6.3-8.2) g/dL Albumin 4.7 (3.5-5.0) g/dL Urine Color (Yellow) Urine Appearance (Clear) Urine pH (4.6-8.0) Ur Specific [place] (1.005-1.030) Urine Protein (Negative) Urine Glucose (UA) (Negative) mg/dL Urine Ketones (Negative) Urine Blood (Negative) Urine Nitrite (Negative) Urine Bilirubin (Negative) Urine Urobilinogen (0.2) mg/dL Ur Leukocyte Esterase (Negative) U Hyaline Cast (Auto) (0-2) /LPF Urine Microscopic RBC (0-5) /HPF Urine Microscopic WBC (0-5) /HPF Ur Epithelial Cells (None Seen) /HPF Urine Bacteria (None Seen) /HPF Urine Culture Reflexed (NO) 01/01/25 01/01/25 Range/Units 14:42 14:30 WBC 12.6 H (4.23-9.07) x10^3/uL RBC 4.13 L (4.63-6.08) x10^6/uL Hgb 12.3 L (13.7-17.5) g/dL Hct 35.7 L (40.1-51.0) % MCV 86.4 (79.0-92.2) fL MCH 29.8 (25.7-32.2) pg MCHC 34.5 (32.3-36.5) g/dL RDW 13.2 (11.6-14.4) % Plt Count 315 (163-337) x10^3/uL MPV 11.1 (9.4-12.4) fL Gran % 78.3 H (34.0-67.9) % Immature Gran % (Auto) 0.4 (0.001-0.429) % Nucleat RBC Rel Count 0.0 (0.00-0.2) % Eos # (Auto) 0.02 L (0.04-0.54) x10^3/uL Immature Gran # (Auto) 0.05 H (0.001-0.031) x10^3u/L Absolute Lymphs (auto) 1.65 (1.32-3.57) x10^3/uL Absolute Monos (auto) 0.92 H (0.30-0.82) x10^3/uL Absolute Nucleated RBC 0.00 (0.00-0.012) x10^3u/L Lymphocytes % 13.1 L (21.8-53.1) % Monocytes % 7.3 (5.3-12.2) % Eosinophils % 0.2 L (0.8-7.0) % Basophils % 0.7 (0.2-1.2) % Absolute Granulocytes 9.91 H (1.78-5.38) x10^3/uL Basophils # 0.09 H (0.01-0.08) x10^3/uL D-Dimer (0.0-0.50) mg/L Sodium (135-145) mmol/L Potassium (3.5-5.1) mmol/L Chloride (98-107) mmol/L Carbon Dioxide (22-30) mmol/L Anion Gap (5-15) MEQ/L BUN (9-20) mg/dL Creatinine (0.66-1.25) mg/dL Estimated GFR ML/MIN Glucose (74-106) mg/dL POC Glucometer 123 H (74 to 106) mg/dL Lactic Acid (0.4-2.0) Calcium (8.4-10.2) mg/dL Magnesium (1.6-2.3) mg/dL Total Bilirubin (0.2-1.3) mg/dL AST (17-59) U/L ALT (0-50) U/L Alkaline Phosphatase (38-126) U/L Troponin I (0.000-0.033) ng/mL NT-Pro-B Natriuret Pep (<300) pg/mL Serum Total Protein (6.3-8.2) g/dL Albumin (3.5-5.0) g/dL Urine Color (Yellow) Urine Appearance (Clear) Urine pH (4.6-8.0) Ur Specific [place] (1.005-1.030) Urine Protein (Negative) Urine Glucose (UA) (Negative) mg/dL Urine Ketones (Negative) Urine Blood (Negative) Urine Nitrite (Negative) Urine Bilirubin (Negative) Urine Urobilinogen (0.2) mg/dL Ur Leukocyte Esterase (Negative) U Hyaline Cast (Auto) (0-2) /LPF Urine Microscopic RBC (0-5) /HPF Urine Microscopic WBC (0-5) /HPF Ur Epithelial Cells (None Seen) /HPF Urine Bacteria (None Seen) /HPF Urine Culture Reflexed (NO) - Progress Progress: improved Progress Note: Patient accepted by by Dr. Weller ER physician at [facility] at 4:33 PM. 01/01/25 16:35 64-year-old male presents to our ED for evaluation of generalized weakness and syncope. Physical exam patient was alert conversant no distress. Workup reveals acute renal injury with a creatinine of 3.1. Patient has an anion gap acidosis of 28 with a bicarb of 12. Patient was observed to have several bowel movements in our ED. Patient had some vague abdominal discomfort. CT scan abd omen pelvis ordered. Results pending. In light of patient's acute renal injury and acidosis patient will require hospitalization/transfer to higher level of care for nephrology evaluation. I spoke to the family regarding the findings and the need for transfer. They agree to transfer to [facility] for further evaluation and treatment. Portions of this note were created with voice recognition technology. There may be grammatical, spelling, punctuation or sound alike errors 01/01/25 16:37 Complexity of problem addressed is moderate acute complicated. No critical care time. Complex of data reviewed and analyzed is extensive. Test ordered chest reviewed results analyzed and correlated clinically with history and physical exam. Management discussed with ER physician Dr. Weller who accepts transfer to [facility] at 4:33 PM. Risk of complication and or risk of morbi dity/mortality of patient management is high. Patient requires transfer to higher level of care. Vital stable. Time spent to transfer patient is approximately 20 minutes. Plan of care established for shared decision making. No social determinants of health present to impede follow-up. Portions of this note were created with voice recognition technology. There may be grammatical, spelling, punctuation or sound alike errors Counseled pt/family regarding: lab results, diagnosis - Departure Departure Disposition: Transfer Clinical Impression: High anion gap metabolic acidosis, Metabolic acidosis, Acute renal injury, Syncope, Generalized weakness Condition: Stable Critical Care Time: No Referrals: RUSTY ORTIZ MD [Primary Care Provider] - Follow up/PCP as directed
[2025-01-01] MEDS: Sodium Chloride 0.9% 1000 ML 1,000 ML IV SCH (14:08)
[2025-01-01 14:51] LABS: Absolute Neutrophil Ct (ANC) 9.91 x10^3/uL (1.78-5.38); BASOPHIL % 0.7 % (0.2-1.2); Basophil (Absolute #) 0.09 x10^3/uL (0.01-0.08); Eosinophil % 0.2 % (0.8-7.0); Eosinophil (Absolute #) 0.02 x10^3/uL (0.04-0.54); Hematocrit 35.7 % (40.1-51.0); Hemoglobin 12.3 g/dL (13.7-17.5); IMMATURE GRAN # 0.05 x10^3u/L (0.001-0.031); IMMATURE GRAN % 0.4 % (0.001-0.429); Lymphocyte (Absolute #) 1.65 x10^3/uL (1.32-3.57); Lymphocytes % 13.1 % (21.8-53.1); Mean Cell Volume 86.4 fL (79.0-92.2); Mean Corpuscular Hemoglobin 29.8 pg (25.7-32.2); Mean Corpuscular Hgb Concent. 34.5 g/dL (32.3-36.5); Mean Platelet Volume 11.1 fL (9.4-12.4); Monocyte (Absolute #) 0.92 x10^3/uL (0.30-0.82); Monocytes % 7.3 % (5.3-12.2); Neutrophil % 78.3 % (34.0-67.9); Platelet Count 315 x10^3/uL (163-337); Red Blood Count 4.13 x10^6/uL (4.63-6.08); Red Cell Distribution Width 13.2 % (11.6-14.4); White Blood Count 12.6 x10^3/uL (4.23-9.07)
--- NOTE | 2025-01-01 14:54 | XRAY ---
Indication: Altered mental status. Multiple contiguous axial images obtained through the head without contrast. Comparison: April 08, 2024 Again age-appropriate global atrophy, mild periventricular degenerative micro-ischemia bilaterally, and remote lacunar infarcts right basal ganglia. New small remote lacunar infarct right mid to anterior centrum semi-ovale. No acute intracranial hemorrhage, abnormal extra-axial fluid collection, or mass effect. Fourth ventricle is midline without hydrocephalus. Bony calvarium intact. Minimal mucosal thickening both maxillary sinuses. Mastoid air cells are clear. Impression: Nonacute senile brain with right cerebral remote lacunar infarcts. Incidental minimal paranasal sinus disease.
--- NOTE | 2025-01-01 14:56 | XRAY ---
Indication: Short of breath. Comparison: April 08, 2024 Portable chest again demonstrates normal heart and lungs with left upper lobe calcified granuloma. Bony thorax intact again with osteopenia and degenerative changes. No new/acute findings.
[2025-01-01 15:16] LABS: ALBUMIN 4.7 g/dL (3.5-5.0); ANION GAP 28.1 MEQ/L (5-15); BILIRUBIN,TOTAL 1.1 mg/dL (0.2-1.3); Creatinine 1 3.1 mg/dL (0.66-1.25); EST GLOMERULAR FILTRATION RATE 21.5 ML/MIN; Potassium 4.5 mmol/L (3.5-5.1); Total Protein 7.1 g/dL (6.3-8.2)
[2025-01-01] MEDS ORDERED: Lactated Ringers 1,000 ML IV ONE (17:12)
--- NOTE | 2025-01-01 17:14 | XRAY ---
Indication: Pain. Multiple contiguous axial images obtained through the abdomen and pelvis without contrast. Comparison: March 07, 2024 Lung bases degraded by respiration. No infiltrate or effusion. Heart not enlarged. Noncontrasted stomach and bowel loops appear nonobstructed with normal appendix. Again incidental tiny splenic calcified granulomas and cholecystectomy. No free fluid/air. Remaining liver, pancreas, spleen, adrenal glands, kidneys, ureters, and bladder are unremarkable for noncontrast exam. Stable mild aortoiliac calcifications without AAA. Osseous structures intact again with osteopenia, minimal/mild degenerative changes throughout spine, and mild degenerative changes both hips. Impression: Again chronic findings including arteriosclerotic disease, chronic bony findings, and old granulomatous disease. No new/acute findings on this noncontrast exam.
[2025-01-01] MEDS: Lactated Ringers 1,000 ML IV SCH (17:16)
[2025-01-01 18:06] VITALS: BP 125/57; PULSE 86; RESP 12; O2SAT 98
[2025-01-01 18:13] LABS: Appearance Clear (Clear); Bacteria None Seen /HPF (None Seen); Bilirubin Negative (Negative); Blood Negative (Negative); Epithelial Cells None Seen /HPF (None Seen); Glucose, Urine >=1000 mg/dL (Negative); Ketones 15 (Negative); Leukocyte Esterase Negative (Negative); Nitrite Negative (Negative); Protein,Urine Dip Negative (Negative); RBC 0-2 /HPF (0-5); Specific Gravity 1.025 (1.005-1.030); Urobilinogen 0.2 mg/dL (0.2); WBC 0-2 /HPF (0-5)
== END 2025-01-01 18:57 | disposition short-term general hospital (02) ==
LOC: ED 13:08
DX: E87.20 Acidosis, unspecified (principal); N17.9 Acute kidney failure, unspecified; R55 Syncope and collapse; R53.1 Weakness; E10.9 Type 1 diabetes mellitus without complications; Z79.4 Long term (current) use of insulin; Z79.85 Long-term (current) use of injectable non-insulin antidiabetic drugs; Z79.899 Other long term (current) drug therapy
CPT/HCPCS: 36415; 51702; 70450; 71045; 74176; 80053; 81001; 82947; 83605; 83735; 83880; 84484; 85025; 85379; 87040; 93005; 93041; 94760; 99285